=== PATIENT | female | born 2000 | race Caucasian/White ===

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

== ENCOUNTER 2023-03-14 14:55 | Emergency (ER) | payer BC, SELFPAY ==
[2023-03-14 15:03] VITALS: BP 104/67; PULSE 83; RESP 14; TEMP 35.8; O2SAT 98
== END 2023-03-14 17:52 | disposition left against medical advice (07) ==
LOC: ED 17:55
PROVIDERS: PCP Nurse Practitioner Family
DX: H57.10 Ocular pain, unspecified eye (principal)

== ENCOUNTER → 2023-09-27 | Outpatient (CLI) | payer BC, SELFPAY ==
[2023-09-27 15:31] LABS: hCG Titer Quant., Serum < 1 mIU/mL (1-3)
== END | disposition home or self-care (01) ==
LOC: LAB 14:37
PROVIDERS: PCP Nurse Practitioner Family; Referring Provider Nurse Practitioner Women's Health; Visit Provider Nurse Practitioner Women's Health
DX: N91.2 Amenorrhea, unspecified (principal)
CPT/HCPCS: 36415; 84702

== ENCOUNTER → 2024-07-02 | Outpatient (CLI) | payer BC, SELFPAY ==
[2024-07-02 12:27] LABS: Absolute Lymphocyte Count 1.71 X10^3/uL (0.83-4.51); Absolute Neutrophil Count 7.5 X10^3/uL (2.0-7.7); Basophil# 0.03 X10^3/uL; Basophil% 0.3 % (0-1); Eosinophil# 0.03 X10^3/uL; Eosinophils% 0.3 % (0-5); Hematocrit 44.3 % (37-47); Hemoglobin 14.1 g/dL (12.0-15.0); Lymphocyte # 1.71 X10^3/ul (0.83-4.51); Lymphocyte % 17.3 % (19-41); Mean Corp Hgb Conc 31.8 g/dL (32-36); Mean Corpuscular Hgb 28.7 pg (27.0-32.0); Mean Platelet Vol. 8.8 fl (6.2-12.0); Monocyte# 0.55 X10^3/uL; Monocyte% 5.6 % (0-10); NRBC Flagged by Analyzer 0 % (0-5); Neutrophil # 7.52 X10^3/uL (2.7-7.7); Neutrophil % 76.2 % (47-70); Platelet Count 428 K/mm3 (150-450); RBC Distribution Width CV 13.1 % (11.6-14.6); RBC Distribution Width SD 42.9 fl (35.1-43.9); Red Blood Count 4.92 M/mm3 (4.2-5.4); White Blood Count 9.9 K/mm3 (4.4-11.0)
[2024-07-02 13:52] LABS: HIV - WCH Non-Reactive (Nonreactive); Hepatitis B Surface Antigen Non-Reactive (Nonreactive); Hepatitis C Antibody Non-Reactive (Nonreactive); Rubella IgG Reactive (Nonreactive); Syphilis Antibodies Non-reactive
[2024-07-02 14:04] LABS: Hemoglobin A1c 5.2 % (3.8-5.6)
[2024-07-04 20:07] LABS: Chlamydia By Nucleic Acid AMP Negative (Negative); Gonococcus By Nucleic Acid AMP Negative (Negative)
[2024-07-11 09:18] LABS: HPV Reflexed? NOT INDICATED
== END | disposition home or self-care (01) ==
PROVIDERS: PCP Nurse Practitioner Family; Referring Provider Obstetrics & Gynecology; Visit Provider Obstetrics & Gynecology
DX: Z12.4 Encounter for screening for malignant neoplasm of cervix (principal); Z3A.00 Weeks of gestation of pregnancy not specified; O09.90 Supervision of high risk pregnancy, unspecified, unspecified trimester
CPT/HCPCS: 36415; 83036; 85025; 86703; 86762; 86780; 86803; 86850; 86900; 86901; 87086; 87340; 87491; 87591; 88175; G0145

== ENCOUNTER 2024-07-21 18:34 | Emergency (ER) | payer BC, SELFPAY ==
[2024-07-21 18:34] VITALS: BP 127/77; PULSE 121; RESP 20; TEMP 35.6; O2SAT 100; BMI 31.6
--- NOTE | 2024-07-21 18:50 | ED.RN ---
PT STATES SHE HAD A STRESSFUL EVENT WITH FAMILY TODAY AND WHILE COOKING IN THE KITCHEN SHE NOTICED WITH HER APPLE WATCH THAT HER HEART RATE WAS GOING BETWEEN 110-135 WITH SOME SOB AND DIZZINESS. DENIES ANY GI/ S/SX. SOME NAUSEA D/T .
--- NOTE | 2024-07-21 18:52 | EKG12_ITS ---
Test Reason : DYSRHYTHMIA Blood Pressure : */* mmHG Vent. Rate : 113 BPM Atrial Rate : 113 BPM P-R Int : 132 ms QRS Dur : 84 ms QT Int : 326 ms P-R-T Axes : 37 33 39 degrees QTcB Int : 447 ms Sinus tachycardia Otherwise normal ECG Confirmed by STEVE MANRIQUEZ, KORINA ([id number]), loan expeditor SANDIE IRVING ([id number]) on 07/23/2024 6:33:14 AM Referred By: ILAN Confirmed By: KORINA WILSON MD
--- NOTE | 2024-07-21 19:02 | EDS_ITS ---
HPI History of Present Illness Chief Complaint: Palpitations Narrative Narrative: 24-year-old female, G2, P1 sees [place] ACCOUNTANT CONTROLLER's presents with heart palpitations and rapid heart rate that began this afternoon. She relays history that she had a stressful event today, and has been slightly agitated. She noticed her heart rate was in the 140s. When she went to make dinner, after trying to calm herself down, her heart rate remained 110. She denies any vaginal bleeding or any problems with her . No chest pain or shortness of breath. It was suggested by her ACCOUNTANT CONTROLLER that she present to the emergency department for evaluation of her rapid heart rate. Of note, she has chronic nausea associated with this for which she takes promethazine. She denies any recent diarrhea, or vomiting. No fevers or chills. PFSH PFSH Home Medications ?Medication ?Instructions ?Recorded ?Last Taken ?Type albuterol sulfate 90 mcg/actuation 2 puff inhalation Q 6H PRN 08/08/23 Unknown History aerosol inhaler promethazine 12.5 mg tablet 12.5 mg PO Q6H PRN nausea and 06/20/24 Unknown Rx vomiting #60 tabs docosahexaenoic acid 200 mg mg PO 06/26/24 Unknown His tory capsule ( DHA) lactobacillus combination no.4 3 3,000 mmu cells PO QD AY 06/26/24 Unknown History billion cell capsule (Probiotic) magnesium 200 mg tablet 200 mg PO QDAY 06/26/24 Unkn own History vitamin B complex (B-Complex 1 tab PO QDAY 06/26/24 Un known History tablet) Allergy/AdvReac Type Severity Reaction Status Date / Time No Known Allergies Allergy Verified 07/21/24 18:48 Family History Grandmother Breast cancer maternal Grandfather Cancer Skin Aunt Cancer Skin Grandmother Heart disease Myocardial infarction Grandfather Kidney failure Father Pre-diabetes Surgical History S/P nasal surgery S/P wisdom tooth extraction S/P D&C (status post dilation and curettage)
--- NOTE | 2024-07-21 19:02 | EX.ED.DYSGE1 ---
HPI History of Present Illness Chief Complaint: Palpitations Narrative Narrative: 24-year-old female, G2, P1 sees [place] FOOD AND NUTRITION SERVICES SUPERVISOR's presents with heart palpitations and rapid heart rate that began this afternoon. She relays history that she had a stressful event today, and has been slightly agitated. She noticed her heart rate was in the 140s. When she went to make dinner, after trying to calm herself down, her heart rate remained 110. She denies any vaginal bleeding or any problems with her . No chest pain or shortness of breath. It was suggested by her FOOD AND NUTRITION SERVICES SUPERVISOR that she present to the emergency department for evaluation of her rapid heart rate. Of note, she has chronic nausea associated with this for which she takes promethazine. She denies any recent diarrhea, or vomiting. No fevers or chills. PFSH PFSH Home Medications ?Medication ?Instructions ?Recorded ?Last Taken ?Type albuterol sulfate 90 mcg/actuation 2 puff inhalation Q6H PRN 08/08/23 Unknown History aerosol inhaler promethazine 12.5 mg tablet 12.5 mg PO Q6H PRN nausea and 06/20/24 Unknown Rx vomiting #60 tabs docosahexaenoic acid 200 mg mg PO 06/26/24 Unknown History capsule ( DHA) lactobacillus combination no.4 3 3,000 mmu cells PO QDAY 06/26/24 Unknown History billion cell capsule (Probiotic) magnesium 200 mg tablet 200 mg PO QDAY 06/26/24 Unknown History vitamin B complex (B-Complex 1 tab PO QDAY 06/26/24 Unknown History tablet) Allergy/AdvReac Type Severity Reaction Status Date / Time No Known Allergies Allergy Verified 07/21/24 18:48 Family History Grandmother Breast cancer maternal Grandfather Cancer Skin Aunt Cancer Skin Grandmother Heart disease Myocardial infarction Grandfather Kidney failure Father Pre-diabetes Surgical History S/P nasal surgery S/P wisdom tooth extraction S/P D&C (status post dilation and curettage) Social History adopted: No household members: spouse and children number of children: 1 current occupation: [employer] current occupational exposures/hazards: No pets and animals: No history of recent travel: No sexually active: Yes Smoking Status: Never smoker alcohol intake: current alcohol intake frequency: holidays/special occasions only details: Not while substance use type: does not use well-balanced diet: daily or most days caffeine: Yes Type: coffee eating out: rarely or never during the past year weight has: remained stable what type of physical activity do you participate in: walking and weight training frequency: 5-6 times per week duration: 30-45 minutes/day feliciano/druze: Caodaism seatbelt use: always do you feel safe at home: Yes additional social history: : 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 HEENT: No sore throat. No neck pain. No rhinorrhea. Cardiovascular: No chest pain. Positive palpitations and rapid heart rate.. No pedal edema. Respiratory: No cough, no shortness of breath. Abdominal: No abdominal pain. Positive nausea. No vomiting. Genitourinary: No dysuria. No hematuria. No vaginal bleeding. Musculoskeletal: No myalgias. No arthralgias. Neurologic: No headaches. No dizziness. No lightheadedness. Skin: No rash. No change in color. Psychiatric: No depression. Mild stress and anxiety. EXAM Physical Exam Narrative Exam Narrative: Afebrile. Vital signs noted. HEENT: Normocephalic. Atraumatic. PERRL, EOMI. Neck soft and supple. No point tenderness or step off. Cardiovascular: Regular rhythm, positive tachycardia no murmurs, rubs, or gallops appreciated. Respiratory: No tachypnea. Lungs clear to auscultation bilaterally. Gastrointestinal: Abdomen soft, nontender, with normoactive bowel sounds. No rebound or guarding. Neurological: Awake. Alert. Nonfocal, nonlateralizing. Skin: No rash. Normal color. No pallor. Musculoskeletal: No pedal edema. Full range of motion extremities. Const Vital Signs: 07/21/24 18:34 07/21/24 18:48 07/21/24 20:33 Temperature 96.1 F L Temperature Source Temporal Pulse Rate 121 H 104 H Respiratory Rate 20 H 19 H Respiratory Effort Normal Blood Pressure 127/77 H 115/69 Blood Pressure Mean 93 84 Pulse Ox 100 100 Oxygen Delivery Method Room Air MDM MDM MDM Narrative Medical decision making narrative: Differential diagnosis includes but not limited to sinus tachycardia versus dehydration versus anxiety versus intravascular volume depletion. I have low suspicion for pulmonary embolism because her pulse ox is 100% on room air without evidence of hypoxia. She is not having chest pain. EKG was obtained and interpreted by myself independently as sinus tachycardia at 113 bpm without ectopy or acute ST changes. No STEMI. QTc 447. I do not feel that D-dimer is indicated as she has a pulse ox of 100% on room air without evidence of hypoxia. I reviewed her laboratory work and she has normal white count of 10.0 with hemoglobin 13.1, hematocrit 40.1, platelet count 307. Potassium is slightly low at 3.3 which was replaced orally with 40 mill equivalents, BUN low at 6 with creatinine 0.60. Glucose probably elevated at 90. LFTs are grossly unremarkable with normal alk phos, AST, and ALT. Urinalysis does not show evidence of ketones, nor does it show infection so I do not feel that antibiotics are indicated. Additionally, heart rate obtained and is normal at 160 bpm. Upon repeat examination after the majority of her fluid bolus, heart rate now 103 to 104 bpm. I discussed patient with Dr. Donald who agrees with close outpatient follow-up. Was not felt that she needed observation or admission at this time. Should this happen again, she may need cardiology referral or wear Holter monitor. Return instructions to the emergency department were reviewed. Disposition is discharged home in stable condition. History & Record Review Discussion w/independent historian: Patient Lab Data Attestation: I reviewed the patient's lab results. Labs: Laboratory Results - last 24 hr 07/21/24 19:09 WBC 10.0 RBC 4.50 Hgb 13.1 Hct 40.1 MCV 89.1 MCH 29.1 MCHC 32.7 RDW Std Deviation 42.7 RDW Coeff of Arlette 13.0 Plt Count 307 MPV 8.6 Immature Gran % (Auto) 0.400 Neut % (Auto) 89.4 H Lymph % (Auto) 4.8 L Davison % (Auto) 5.2 Eos % (Auto) 0.1 Baso % (Auto) 0.1 Absolute Neuts (auto) 8.9 H Absolute Lymphs (auto) 0.48 L Nucleated RBC % 0 Sodium 138 Potassium 3.3 L Chloride 107 Carbon Dioxide 24.0 Anion Gap 7 BUN 6 L Creatinine 0.60 Estim Creat Clear Calc 163.86 Est GFR (MDRD) Af Amer 159 Est GFR (MDRD) Non-Af 132 BUN/Creatinine Ratio 10.0 Glucose 90 Calcium 8.7 Total Bilirubin 0.10 L AST 31 ALT 38 Alkaline Phosphatase 91 Total Protein 6.9 Albumin 3.1 L Globulin 3.8 Albumin/Globulin Ratio 0.8 L Urine Color Yellow Urine Clarity Sl. Cloudy Urine pH 7.0 Ur Specific [place] 1.005 Urine Protein Negative Urine Glucose (UA) Normal Urine Ketones Negative Urine Occult Blood 10 H Urine Nitrite Negative Urine Bilirubin Negative Urine Urobilinogen Normal Ur Leukocyte Esterase Negative Urine RBC 0-5 SEEN Urine WBC 0 SEEN Ur Squamous Epith Cells 0 SEEN Urine Bacteria 0 SEEN Urine Mucus 0 SEEN Management Discussion w/another healthcare provider: Recreation Therapy Aide (Dr. Donald) Discharge Plan Triage Chief Complaint: Palpitations ED Provider: Aashish Thomas Dx/Rx/DC Orders Clinical Impression: Tachycardia, , Hypokalemia Instructions: ED Hypokalemia, ED Palpitations, ED Established ... Prescriptions: No Action albuterol sulfate 90 mcg/actuation HFA aerosol inhaler 2 puff inhalation Q6H PRN DHA 200 mg capsule PO magnesium 200 mg tablet 200 mg PO QDAY vitamin B complex [B-Complex] Tablet 1 tab PO QDAY Probiotic 3 billion cell capsule 3,000 mmu cells PO QDAY Rx Instructions: administer with a meal promethazine 12.5 mg tablet 12.5 mg PO Q6H PRN (Reason: nausea and vomiting) Qty: 60 2RF Primary Care Provider: Jenniffer Perea NP Referrals: Lashay Fields DO [Med Staff - Active Staff] - 3-5 Days if not improving Jenniffer Perea NP, MUD WORKER-C [Primary Care Provider] - Activity Restrictions/Additional Instructions: Return to the emergency department with sustained high heart rate, new or worsening symptoms. Follow-up with your FOOD AND NUTRITION SERVICES SUPERVISOR. Call the office if you have a high heart rate or palpitations as you may need to be referred to cardiology or wear a Holter monitor. Print Language: Lao Disposition Disposition: Home, Self Care
[2024-07-21] MEDS: 0.9% Normal Saline (1000mL) 1,000 ML 999 ML IV (19:13)
[2024-07-21 19:18] LABS: Bacteria 0 SEEN /hpf (None Seen); Mucous, Urine 0 SEEN /hpf (<or=2+); Squamous Epithelial Cells - UA 0 SEEN /hpf (5-10); White Blood Cells 0 SEEN /hpf (0-5)
[2024-07-21 19:24] LABS: Absolute Lymphocyte Count 0.48 X10^3/uL (0.83-4.51); Absolute Neutrophil Count 8.9 X10^3/uL (2.0-7.7); Basophil# 0.01 X10^3/uL; Basophil% 0.1 % (0-1); Eosinophil# 0.01 X10^3/uL; Eosinophils% 0.1 % (0-5); Hematocrit 40.1 % (37-47); Hemoglobin 13.1 g/dL (12.0-15.0); Lymphocyte # 0.48 X10^3/ul (0.83-4.51); Lymphocyte % 4.8 % (19-41); Mean Corp Hgb Conc 32.7 g/dL (32-36); Mean Corpuscular Hgb 29.1 pg (27.0-32.0); Mean Corpuscular Volume 89.1 fL (81-99); Mean Platelet Vol. 8.6 fl (6.2-12.0); Monocyte# 0.52 X10^3/uL; Monocyte% 5.2 % (0-10); NRBC Flagged by Analyzer 0 % (0-5); Neutrophil # 8.91 X10^3/uL (2.7-7.7); Neutrophil % 89.4 % (47-70); POSITIVE DIFFERENTIAL YES; Platelet Count 307 K/mm3 (150-450); RBC Distribution Width SD 42.7 fl (35.1-43.9)
[2024-07-21 19:25] LABS: Color, Urine Yellow (Yellow); Glucose, Dipstick Normal (Normal); Ketone-Dipstick Negative (Negative); Leukocyte Esterase-Dipstick Negative /ul (Negative); Nitrite-Dipstick Negative (Negative); Occult Blood-Urine 10 /ul (Negative); Protein-Dipstick Negative (Negative); Specific Gravity, Urine 1.005 (1.002-1.030); Urine Bilirubin Dipstick Negative (Negative); Urine Clarity Sl. Cloudy (Clear); Urine Urobilinogen Normal (Normal)
[2024-07-21 19:39] LABS: ALB/GLOB Ratio 0.8 RATIO (0.9-2.4); AST(SGOT) 31 U/L (15-37); Alanine Aminotransfer ALT/SGPT 38 U/L (13-56); Albumin, Serum 3.1 g/dL (3.2-5.0); Alkaline Phosphatase 91 U/L (45-117); Anion Gap 7 (5-15); BUN 6 mg/dL (7-18); Calcium,Total 8.7 mg/dL (8.5-10.1); Chloride 107 mmol/L (98-107); EST Glomerular Filtration Rate 132 mL/min (>60); Est Glom Filt Rate - Afr Amer 159 mL/min (>60); Estimated Creatinine Clearance 163.86 ml/min; Globulin 3.8 g/dL (2.2-4.2); Glucose 90 mg/dL (74-106); Potassium 3.3 mmol/L (3.5-5.1); Protein, Total 6.9 g/dL (6.4-8.2); Sodium Level 138 mmol/L (136-145)
[2024-07-21 19:43] LABS: Red Blood Cells-Urine 0-5 SEEN /hpf (0-5)
[2024-07-21 20:33] VITALS: BP 115/69; PULSE 104; RESP 19; O2SAT 100
[2024-07-21] MEDS: Potassium Chloride Oral Tablet 20 MEQ 40 MEQ PO (21:01)
[2024-07-21 21:03] VITALS: BP 106/67; PULSE 108; RESP 16; TEMP 35.6; O2SAT 100
== END 2024-07-21 21:03 | disposition home or self-care (01) ==
PROVIDERS: Emergency Provider Emergency Medicine; PCP Nurse Practitioner Family; Visit Provider Emergency Medicine
DX: O99.891 Other specified diseases and conditions complicating pregnancy (principal); R00.0 Tachycardia, unspecified; O99.284 Endocrine, nutritional and metabolic diseases complicating childbirth; E87.6 Hypokalemia; Z3A.00 Weeks of gestation of pregnancy not specified
CPT/HCPCS: 80053; 81001; 85025; 93005; 96360; 96361; 99284; A4216

== ENCOUNTER → 2024-10-22 | Outpatient (CLI) | payer BC, SELFPAY ==
[2024-10-22 13:32] LABS: Absolute Lymphocyte Count 1.49 X10^3/uL (0.83-4.51); Basophil# 0.02 X10^3/uL; Basophil% 0.2 % (0-1); Eosinophil# 0.03 X10^3/uL; Eosinophils% 0.3 % (0-5); Hematocrit 40.1 % (37-47); Lymphocyte # 1.49 X10^3/ul (0.83-4.51); Lymphocyte % 13.2 % (19-41); Mean Corp Hgb Conc 32.4 g/dL (32-36); Mean Corpuscular Hgb 30.1 pg (27.0-32.0); Mean Corpuscular Volume 92.8 fL (81-99); Mean Platelet Vol. 9.4 fl (6.2-12.0); Monocyte# 0.58 X10^3/uL; Monocyte% 5.1 % (0-10); NRBC Flagged by Analyzer 0 % (0-5); Neutrophil # 9.03 X10^3/uL (2.7-7.7); Platelet Count 358 K/mm3 (150-450); RBC Distribution Width CV 13.5 % (11.6-14.6); Red Blood Count 4.32 M/mm3 (4.2-5.4); White Blood Count 11.3 K/mm3 (4.4-11.0)
[2024-10-22 14:31] LABS: Glucose Challenge Gest 1H 50g 85 mg/dL (70-140); HIV Nonreactive (Nonreactive); Syphilis Antibodies Nonreactive (Nonreactive)
== END | disposition home or self-care (01) ==
LOC: LAB 12:25
PROVIDERS: PCP Nurse Practitioner Family; Referring Provider Obstetrics & Gynecology; Visit Provider Obstetrics & Gynecology
DX: O09.90 Supervision of high risk pregnancy, unspecified, unspecified trimester (principal); Z13.1 Encounter for screening for diabetes mellitus; Z3A.00 Weeks of gestation of pregnancy not specified
CPT/HCPCS: 36415; 82950; 85025; 86703; 86780

== ENCOUNTER 2024-10-28 23:30 | Outpatient (CLI) | payer BC, SELFPAY ==
[2024-10-28 23:52] VITALS: BMI 34.4
[2024-10-28 23:58] VITALS: BP 118/62; PULSE 95; TEMP 37.1; O2SAT 96
[2024-10-29 00:08] VITALS: RESP 20
[2024-10-29 00:34] LABS: Color, Urine Yellow (Yellow); Glucose, Dipstick Normal (Normal); Ketone-Dipstick Negative (Negative); Leukocyte Esterase-Dipstick Negative /ul (Negative); Nitrite-Dipstick Negative (Negative); Occult Blood-Urine 10 /ul (Negative); Protein-Dipstick 15 mg/dl (Negative); Specific Gravity, Urine 1.015 (1.002-1.030); Urine Bilirubin Dipstick Negative (Negative); Urine Clarity Clear (Clear); Urine Urobilinogen Normal (Normal)
--- NOTE | 2024-10-29 07:36 | OB.TRI.PN ---
Progress Notes Date of Service: 10/28/24 Progress Note: Patient presents for triage evaluation secondary to threatened contracitons FHT: 150 Moderate variability reactive no decelerations category I tracing [place]: isolated Contractions Assessment and plan: 27 weeks threatened contractions cervix closed urine culture sent Reactive NST, reassuring maternal and status patient discharged to home to follow-up as scheduled. See problem list details for additional plan information. Laboratory Studies: Laboratory Tests 10/28/24 Range/Units 00:20 Urine Color Yellow (Yellow) Urine Clarity Clear (Clear) Urine pH 7.0 (5.0 - 8.0) Ur Specific [place] 1.015 (1.002-1.030) Urine Protein 15 H (Negative) mg/dl Urine Glucose (UA) Normal (Normal) mg/dl Urine Ketones Negative (Negative) mg/dl Urine Occult Blood 10 H (Negative) /ul Urine Nitrite Negative (Negative) Urine Bilirubin Negative (Negative) mg/dL Urine Urobilinogen Normal (Normal) mg/dl Ur Leukocyte Esterase Negative (Negative) /ul Charges/Coding Procedures Urinary/Genital 52xxx-59xxx: 05199-96 non-stress test Interp
== END 2024-10-29 01:13 | disposition home or self-care (01) ==
LOC: WPOUT 23:51 → WP 23:51
PROVIDERS: PCP Nurse Practitioner Family; Visit Provider Obstetrics & Gynecology
DX: O47.02 False labor before 37 completed weeks of gestation, second trimester (principal); Z3A.27 27 weeks gestation of pregnancy
CPT/HCPCS: 59050; 81002; 87086; 87088; 99221; G0378

== ENCOUNTER 2024-12-13 13:55 | Outpatient (CLI) | payer BC, SELFPAY ==
[2024-12-13 14:08] VITALS: BP 117/67; PULSE 100
[2024-12-13 14:10] VITALS: PULSE 101; O2SAT 94
== END 2024-12-13 14:50 | disposition home or self-care (01) ==
LOC: WPOUT 13:59 → WP 14:00
PROVIDERS: PCP Nurse Practitioner Family; Referring Provider Obstetrics & Gynecology; Visit Provider Obstetrics & Gynecology
DX: O36.8130 Decreased fetal movements, third trimester, not applicable or unspecified (principal); Z3A.33 33 weeks gestation of pregnancy
CPT/HCPCS: 59025; 59050; 99221; G0378

== ENCOUNTER 2024-12-25 13:50 | Outpatient (CLI) | payer BC, SELFPAY ==
[2024-12-13 14:10] VITALS: RESP 14; TEMP 37.1; O2SAT 100
[2024-12-25 13:53] VITALS: BMI 34.3
[2024-12-25 14:08] VITALS: BP 121/76; PULSE 107; PULSE 113; O2SAT 97
[2024-12-25 14:09] VITALS: RESP 17; TEMP 36.6; O2SAT 97
[2024-12-25 14:45] LABS: ROM Internal Control Test YES-OK TO RESULT pt. (Internal QC); ROM Patient Test Negative (Negative); Record Kit Lot#, ROM+ K3358
--- NOTE | 2024-12-25 19:07 | OB.TRI.HP_ITS ---
HPI - General HPI Narrative SANG SHANE, is a 24 F who presents to L&D at 35 weeks 2 days with possible rupture of membranes Maternal Data Information JANNET Calculator Estimated Delivery Date Method Current WG Current Estimate 01/27/25 LMP (Certain) 35w 4d PFSH PFSH Home Medications ?Medication ?Instructions ?Recorded ?Last Taken ?Type albuterol sulfate 90 mcg/actuation 2 puff inhalation Q 6H PRN 08/08/23 Unknown History aerosol inhaler shortness of breath or wheez ing docosahexaenoic acid 200 mg 1 mg PO QHS 06/26/2412/24 21:00 History capsule ( DHA) lactobacillus combination no.4 3 3,000 mmu cells PO QD AY 06/26/24 12/24/24 19:00 History billion cell capsule (Probiotic) magnesium 200 mg tablet 350 mg PO QDAY 06/26/2412/11 21:00 History acetaminophen 500 mg capsule 1,000 mg PO Q6H PRN pain 10/29/24 10/28/24 21:00 History nystatin 100,000 unit/gram topical 1 applic topical BI D #30 grams 12/17/24 12/25/24 08:00 Rx powder melatonin 3 mg capsule 2 mg PO PRN 12/25/24 5 21:00 History Allergy/AdvReac Type Severity Reaction Status Date / Time No Known Allergies Allergy Verified 12/25/24 14:08 Family History Grandmother Breast cancer maternal Grandfather Cancer Skin Aunt Cancer Skin Grandmother Heart disease Myocardial infarction Grandfather Kidney failure Father Pre-diabetes Surgical History S/P nasal surgery S/P wisdom tooth extraction S/P D&C (status post dilation and curettage) Social History adopted: No household members: spouse and children number of children: 1 current occupation: [employer] current occupational exposures/hazards: No pets and animals: No history of recent travel: No sexually active: Yes Smoking Status: Never smoker alcohol intake: current alcohol intake frequency: holidays/special occasions only details: Not while substance use type: does not use well-balanced diet: daily or most days caffeine: Yes Type: coffee eating out: rarely or never during the past year weight has: remained stable what type of physical activity do you participate in: walking and weight training frequency: 5-6 times per week duration: 30-45 minutes/day feliciano/pentecostal: Uatsdin seatbelt use: always do you feel safe at home: Yes 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 Date Name GA/Weeks Outcome Route Bth Weight Gen Labor Lgth Anes thesi a Del Locatn Provider FOB 12/09/22 Ines 41 live - full term 7lbs 6oz Female 12 hours epidural Ina Rigo Melisaeusebio Roberts Delivery Date: 12/09/22 Last Updated by: Rachel Peña RN Retained placenta - bleed x8wk pp, D&C 8wk pp Visit Details Expected Delivery Route/Plan Labor Preferences- CB/BF classes: no labor support person: Armando labor intervention preferences: [] pain management options preferred: epidural cut cord/dad catch: maybe : yes PP control planned: discussed discussed possible routes of delivery and associated risks: [] special requests: [] Plans Covid status: [] Flu vaccine: [] Tdap vaccine: given Rhogam: na LARC form signed: yes Problem list reviewed and updated with the most current plan of care details and appropriate orders placed. Relevant counseling for the gestational age provided. Continue routine care and follow up unless otherwise noted in visit notes/problem list details OB Flowsheet Initial Weight: 189 lb Date -?-?-?-?-?-?-?-?-?-?-?-?- EGA Weight BP Urine Prot -?-?-?-?-?-?-?-?-?-?-?-?- Glucose FHR FuHt Pres Dilation -?-?-?-?-?-?-?-?-?-?-?-?- Effaced St Visit Note 07/02/24 -?-?-?-?-?-?-?-?-?-?-?-?- 10w 1d 189 lb (+0 oz) 112/76 -?-?-?-?-?-?-?-?-?-?-?-?- 176 -?-?-?-?-?-?-?-?-?-?-?-?- JV- CRL measures 10 weeks 6 days but still not off by more than 7 days. JANNET is per LMP 01/27/25. Desires nipt. was delivered in [facility] last . had retained placenta and D&C several weeks after delivery 07/30/24 -?-?-?-?-?-?-?-?-?-?-?-?- 14w 1d 192 lb 4 oz (+3 lb 4 oz) 124/77 Negative -?-?-?-?-?-?-?-?-?-?-?-?- Negative 168 -?-?-?-?-?-?-?-?-?-?-?-?- KW- no vb/crampi ng. feeling some flutters. anatomy US ordered. 08/27/24 -?-?-?-?-?-?-?-?-?-?-?-?- 18w 1d 201 lb (+12 lb) 115/77 Negative -?-?-?-?-?-?-?-?-?-?-?-?- Negative 176 -?-?-?-?-?-?-?-?-?-?-?-?- JV- pt complains of round ligament pain and pain during sex. was told may have endometriosis. no lof, vaginal bleeding, cramping. 09/24/24 -?-?-?-?-?-?-?-?-?-?-?-?- 22w 1d 202 lb 6 oz (+13 lb 6 oz) 100/63 Negative -?-?-?-?-?-?-?-?-?-?-?-?- Negative 150 -?-?-?-?-?-?-?-?-?-?-?-?- SM- no vb lof go od fm some ijeoma seaman. 10/22/24 -?-?-?-?-?-?-?-?-?-?-?-?- 26w 1d 209 lb 2 oz (+20 lb 2 oz) 98/66 Negative -?-?-?-?-?-?-?-?-?-?-?-?- Negative 143 26 -?-?-?-?-?-?-?-?-?-?-?-?- -No VB. Ezra Porter. Rash comes and goes under breasts, nystatin sent. Larc. 28 wk labs pending 11/06/24 -?-?-?-?-?-?-?-?-?-?-?-?- 28w 2d 214 lb 2 oz (+25 lb 2 oz) 103/51 Negative -?-?-?-?-?-?-?-?-?-?-?-?- Negative 145 29 -?-?-?-?-?-?-?-?-?-?-?-?- KW- no vb/lof. B H ctx becoming more regular- every 3-4 days. increased stress with husbands health concerns and notices a correlation. ezra fm. Tdap today 12/03/24 -?-?-?-?-?-?-?-?-?-?-?-?- 32w 1d 215 lb (+26 lb) 127/86 Negative -?--?-?-?-?-?-?-?-?-?-?-?- Negative 164 32 Cephalic -?-?-?-?-?-?-?-?-?-?-?-?- JV- lots of ques tions about h/o retained placenta. states would appreciate a physician at delivery . 12/17/24 -?-?-?-?-?-?-?-?-?-?-?-?- 34w 1d 214 lb 4 oz (+25 lb 4 oz) 104/80 Negative -?-?-?-?-?-?-?-?-?-?-?-?- Negative 154 34 Cephalic -?-?-?-?-?-?-?-?-?-?-?-?- MH-NO VB. Ezra Perez Occa BH ctx. ROS Constitutional Constitutional: Reports systems reviewed and no addt'l complaints, except as documented Gastrointestinal Gastrointestinal: Denies bloating, constipation, cramping, diarrhea, nausea or vomiting Genitourinary Genitourinary: Reports other Details: Denies vaginal odor, vaginal bleeding, or vaginal discharge ; Denies difficulty urinating or flank pain NST FHR Rate Baby A Baseline: 140 Variability:: Moderate Accelerations:: 15 x 15 Decelerations:: None NST Reactive:: Yes FHR Category:: Category I Assessment & Plan (1) History of retained placenta: COMMENT: very traumatic-found at 8w pp, calcified, took 45min to remove at surgery. (2) Obesity affecting : QUALIFIERS: Trimester: second trimester Obesity type affecting : unspecified obesity Qualified Code(s): O99.212 - Obesity complicating , second trimester COMMENT: BMI 30.2, HgBA1C w/NOB (3) Supervision of high-risk : QUALIFIERS: Trimester: third trimester Qualified Code(s): O09.93 - Supervision of high risk , unspecified, third trimester COMMENT: PRR, , JANNET 01/27/25,girl Brionna PC: Ines, : Armando (4) : QUALIFIERS: Weeks of gestation: 34 weeks Qualified Code(s): Z3A.34 - 34 weeks gestation of COMMENT: NIPT low risk, carrier negative in first . ntd screen declined. (5) Family history of spina bifida: COMMENT: Pt's sister (also has scoliosis), recommended 4 mg daily folic acid (6) History of eating disorder: COMMENT: Doing well with eating during , please be mindful of weight checks (7) Asthma: QUALIFIERS: Asthma severity: unspecified severity Asthma persistence: unspecified Asthma complication type: unspecified Qualified Code(s): J45.909 - Unspecified asthma, uncomplicated COMMENT: Albuterol PRN (8) Migraine with aura: QUALIFIERS: Status migrainosus presence: without status migrainosus Intractability: not intractable Qualified Code(s): G43.109 - Migraine with aura, not intractable, without status migrainosus COMMENT: avoid estrogen PLAN: Plan rom plus is negative nst reactive ok to dc to home Charges/Coding Multi Select Codes Urinary/Genital Urinary/Genital CPT Codes: 37312-13 non-stress test Interp
== END 2024-12-25 15:15 | disposition home or self-care (01) ==
LOC: WPOUT 13:52 → WP 13:53
PROVIDERS: PCP Nurse Practitioner Family; Referring Provider Obstetrics & Gynecology; Visit Provider Obstetrics & Gynecology
DX: O99.213 Obesity complicating pregnancy, third trimester (principal); Z3A.35 35 weeks gestation of pregnancy; O99.353 Diseases of the nervous system complicating pregnancy, third trimester; G43.109 Migraine with aura, not intractable, without status migrainosus; Z82.79 Family history of other congenital malformations, deformations and chromosomal abnormalities; O99.513 Diseases of the respiratory system complicating pregnancy, third trimester; J45.909 Unspecified asthma, uncomplicated
CPT/HCPCS: 59025; 59050; 84112; 99221; G0378

== ENCOUNTER 2024-12-31 10:25 | Outpatient (CLI) | payer BC, SELFPAY ==
--- OUTSIDE RECORDS SUMMARY | 2024-12-31 20:06 | XMS RPT_ITS | CCD ---
Author Organization [facility] Care Team Providers Care Farm Implement Engine Mechanic Name Role Phone Unavailable Primary Care Provider Unavailabl e ELIAZAR FISHING FLOATS ASSEMBLER-JENNIFFER MAXWELL Primary Care Physician ELIAZAR NO, JENNIFFER Primary Care Physician Jenniffer Peera Primary Care Provider RADHA SCOTT Attending Unavailable JENNIFFER PEREA Referring Unavailable RADHA SCOTT Admitting Unavailable RADHA SCOTT Attending Unavailable JENNIFFER PEREA Primary Care Unavailable Eliazar CONCESSION ATTENDANT, CONCESSION ATTENDANT-C Jenniffer Primary Care Provider [phone] Eliazar CONCESSION ATTENDANT, CONCESSION ATTENDANT-C Jenniffer Referring Provider Rasta CONCESSION ATTENDANT, CONCESSION ATTENDANT-C Malathi Attending Provider [phone] Kevan CONCESSION ATTENDANT, CONCESSION ATTENDANT-C Kristi Attending Provider [phone] ELIAZAR FISHING FLOATS ASSEMBLER-ALISSA, [facility] Unavail able JAXSON SANTILLAN Attending Unav ailable ELIAZAR FISHING FLOATS ASSEMBLER-ALISSA, [facility] Unavail able MELISA ULLOA MD Attending Unavailable LORSON FISHING FLOATS ASSEMBLER-SEPARATING MACHINE OPERATOR, [place] Primary Care Unavail able LORSON FISHING FLOATS ASSEMBLER-SEPARATING MACHINE OPERATOR, JENNIFFER Attending Unavail able LORSON FISHING FLOATS ASSEMBLER-SEPARATING MACHINE OPERATOR, [place] Primary Care Unavail able LORSON FISHING FLOATS ASSEMBLER-SEPARATING MACHINE OPERATOR, JENNIFFER Attending Unavail able LORSON FISHING FLOATS ASSEMBLER-SEPARATING MACHINE OPERATOR, JENNIFFER Attending Unavail able LORSON FISHING FLOATS ASSEMBLER-SEPARATING MACHINE OPERATOR, [facility] Care Unavail able DEVAN VILLARREAL Attending Unavailable GONZALEZ DUNNE Referring Unavailable Eliazar CONCESSION ATTENDANT-C, [place] Primary Care Provider [phone] Rachel Peña RN Attending Provider Unavailabl e Eliazar CONCESSION ATTENDANT-C, Jenniffer Referring Provider Dr. Lashay Fields DO Attending Provider Dr. Lashay Fields DO Referring Provider Martha MANRIQUEZ, Aashish Attending Provider Martha MANRIQUEZ, Aashish Emergency Provider Gonzalez Dunne CNM Attending Provider [phone] Scot MANRIQUEZ, Dr. Cortes Attending Provider [phone] Scot MANRIQUEZ, Dr. Cortes Referring Provider Fillmore CONCESSION ATTENDANT-C, Malathi Attending Provider [phone] Lorson CONCESSION ATTENDANT-C, [place] Primary Care Provider [phone] Lorson CONCESSION ATTENDANT-C, [place] Primary Care Provider [phone] Lorson CONCESSION ATTENDANT-C, [place] Referring Provider [phone] Zan Tellez DO, Dr. Metz Attending Provider Scot MANRIQUEZ, Dr. Cortes Other Provider [phone] Lorson CONCESSION ATTENDANT-C, [place] Primary Care Provider [phone] Lorson CONCESSION ATTENDANT-C, [place] Primary Care Provider [phone] Lorson CONCESSION ATTENDANT-C, [place] Referring Provider [phone] Gonzalez Dunne CNM Attending Provider [phone] Dr. Lashay Fields DO Referring Provider Lashay Fields Attending Unavailabl e Lorson CONCESSION ATTENDANT, [facility] Unavailable Lorson CONCESSION ATTENDANT, [place] Referring Unavailable Lashay Fields Referring Unavailabl e Jonie Lashay Tellez Attending Unavailabl e Lorson CONCESSION ATTENDANT, [facility] Unavailable Lorson CONCESSION ATTENDANT, [facility] Care Unavailable Lorson CONCESSION ATTENDANT, [place] Referring Unavailable Gonzalez Dunne Attending Unavailable Sophia Ellison Attending Unavailable Sophia Ellison Referring Unavailable Lorson CONCESSION ATTENDANT, [facility] Unavailable Lashay Fields Attending Unavailabl e Lorson CONCESSION ATTENDANT, [facility] Care Unavailable Lorson CONCESSION ATTENDANT, [place] Referring Unavailable Lashay Fields Referring Unavailabl e Vande Lashay Tellez Attending Unavailabl e Lorson CONCESSION ATTENDANT, [facility] Unavailable Sophia Ellison Attending Unavailable Sophia Ellison Referring Unavailable Lorson CONCESSION ATTENDANT, [facility] Care Unavailable Lashay Fields Attending Unavailabl e Lorson CONCESSION ATTENDANT, [facility] Care Unavailable Lorson CONCESSION ATTENDANT, [place] Referring Unavailable Lorson CONCESSION ATTENDANT, [facility] Care Unavailable Aashish Thomas Attending Unavailable WichoanthonySophia Referring Unavailable Sophia Ellison Attending Unavailable Lorson CONCESSION ATTENDANT, [facility] Care Unavailable Lorson CONCESSION ATTENDANT, [place] Primary Care Unavailable Lorson CONCESSION ATTENDANT, [place] Referring Unavailable Sophia Ellison Attending Unavailable [place] CONCESSION ATTENDANT, Malathi Attending Unavailable Lorson CONCESSION ATTENDANT, [place] Referring Unavailable Lorson CONCESSION ATTENDANT, [place] Primary Care Unavailable Lorson CONCESSION ATTENDANT, [place] Primary Care Unavailable Lorson CONCESSION ATTENDANT, [place] Referring Unavailable Gonzalez Dunne Attending Unavailable Lorson CONCESSION ATTENDANT, [place] Referring Unavailable Lorson CONCESSION ATTENDANT, [place] Primary Care Unavailable [place] CONCESSION ATTENDANT, Malathi Attending Unavailable Lorson CONCESSION ATTENDANT, [place] Primary Care Unavailable Lorson CONCESSION ATTENDANT, [place] Referring Unavailable [place] CONCESSION ATTENDANT, Malathi Attending Unavailable Sophia Ellison Consulting Unavailable Sophia Ellison Referring Unavailable Sophia Ellison Attending Unavailable Lorson CONCESSION ATTENDANT, [facility] Care Unavailable Lashay Fields Consulting Unavailabl e Vande Velde, Lashay Referring Unavailabl e Vande Velhanh, Lashay Attending Unavailabl e Lorson CONCESSION ATTENDANT, [facility] Unavailable Sophia Ellison Attending Unavailable Sophia Ellison Consulting Unavailable Lorson CONCESSION ATTENDANT, [facility] Unavailable Rachel Peña Attending Unavailable Lorson CONCESSION ATTENDANT, [facility] Unavailable Lorson CONCESSION ATTENDANT, [facility] Care Unavailable Lorson CONCESSION ATTENDANT, [place] Referring Unavailable Gonzalez Dunne Attending Unavailable Rasta CONCESSION ATTENDANT, Malathi Attending Unavailable Lorson CONCESSION ATTENDANT, [facility] Unavailable Lorson CONCESSION ATTENDANT, [place] Referring Unavailable Lorson CONCESSION ATTENDANT-C, [place] Primary Care Provider [phone] Lorson CONCESSION ATTENDANT-C, [place] Referring Provider [phone] Lashay Fields DO Attending Provider Dr. Lashay Fields DO Other Provider [phone] Gonzalez Dunne CNM Referring Provider Medications Current Medications Medication Drug Class(es) Dates Sig (Normalized) Sig (Original) acetaminophen 500 mg oral capsule (20 sources) Start: 10-29-2024 take 2 capsules by mouth every six hours as needed for pain Acetaminophen 500 mg capsule Active 1000 mg PO EVERY 6 HOURS as needed for pain October 29, 2024 12:00am Start: 09-29-2023 End: 09-29-2023 acetaminophen (Tylenol) tabl et 1,000 mg Start: 12-10-2022 End: 01-07-2023 Tylenol Extra Strength 500 m g oral tablet Dose : 500 mg = 1 tab(s), Oral, q4h, X 14 day(s), # 30 tab(s), 1 Refill(s), 01/07/23 9:45:00 EDT, Pharmacy: [facility] #[id number], 167.6, cm, 12/08/22 22:42:00 EDT, Height Start Date: 12/10/22 Stop Date: 01/07/23 Status: Ordered Start: 09-02-2020 Tylenol Dose : 325 mg =, Oral, PRN as needed for pain, 0 Refill(s) Start Date: 09/02/20 Status: Ordered acetaminophen 325 mg / oxyCODONE hydrochloride 5 mg oral tablet (1 source) Opioid Agonist Start: 02-04-2023 End: 02-11-2023 take 1 tablet by mouth every four hours as needed for pain Percocet 5 mg-325 mg oral tablet Dose = 1 tab(s), Oral, q4h, PRN for pain, X 7 day(s), # 12 tab(s), 0 Refill(s), Pharmacy: [facility] #[id number], Postoperative pain, 167.6, cm, 02/04/23 6:23:00 EDT, Height, 75, kg, 02/04/23 6:23:00 EDT, Dosing Weight Start Date: 02/04/23 Stop Date: 02/11/23 Status: Ordered [id number] 200 actuat albuterol 0.09 mg/actuat metered dose inhaler (20 sources) beta2-Adrenerg ic Agonist Start: 08-08-2023 Albuterol Sulfate 90 mcg/actuation HFA aerosol inhaler Active 2 NMA INHALATION EVERY 6 HOURS as needed for shortness of breath or wheezing August 08, 2023 1:00am Start: 02-26-2024 take 1 puff(s) by in halation every six hours Albuterol Sulfate Active 2 PUFF INHALATION EVERY 6 HOURS August 08, 2023 1:00am Start: 09-02-2022 take 2 puff(s) by in halation every four hours as needed for wheezing Ventolin HFA MDI (90 mcg/inh) inhalation aerosol 2 puff(s), Inhalation, q4h, PRN as needed for wheezing, # 6.7 gram(s), 0 Refill(s), Pharmacy: [facility] #[id number], 167, cm, 08/16/22 13:53:00 EST, Height, kg, 06/08/22 10:52:00 EST, Dosing Weight Start Date: 09/02/22 Status: Ordered Start: 09-19-2021 take 2 puff(s) by in halation every four hours as needed for wheezing Ventolin HFA MDI (90 mcg/inh) inhalation aerosol 2 puff(s), Inhalation, q4h, PRN as needed for wheezing, # 1 EA, 0 Refill(s), Pharmacy: [email or web address] 167.6, cm, 09/02/20 14:42:00 EDT, Height, kg, 09/02/20 14:42:00 EDT, Dosing Weight Start Date: 09/19/21 Status: Ordered Start: 09-02-2020 take 2 puff(s) by in halation every four hours as needed for wheezing Ventolin HFA MDI (90 mcg/inh) inhalation aerosol 2 puff(s), Inhalation, q4h, PRN as needed for wheezing, # 1 EA, 0 Refill(s), Pharmacy: [email or web address] 167.6, cm, 09/02/20 14:42:00 EDT, Height, kg, 09/02/20 14:42:00 EDT, Dosing Weight Start Date: 09/02/20 Status: Ordered ALBUTEROL SULFAT E HFA IN Inhale 2 puffs as needed. 0 Active albuterol sulfate HFA 108 (90 Base) MCG/ACT inhaler (1 source) take 2 puff(s) by inhalation every six hours as needed for wheezing albuterol sulfate HFA 108 (90 Base) MCG/ACT inhaler Inhale 2 puffs into the lungs every 6 hours as needed for Wheezing 0 Active benzocaine 200 mg/ml topical spray (1 source) Standardized Chemical Allergen Start: End: apply 1 dose topically four times daily Americaine 20% topical spray Dose = 1 rashel, Topical, QID, X 14 day(s), # 1 EA, 0 Refill(s), [facility]acy: [facility] #[id number], 167.6, cm, 12/08/22 22:42:00 EDT, Height Start Date: 12/10/22 Stop Date: 12/24/22 Status: Ordered DME MISCellaneous (8 sources) Start: DME MISCellaneous See Instructions, Spacer chamber, Dx: J45.909, # 1 EA, 0 Refill(s), [facility]: [facility] #[id number], 167, cm, 09/25/22 8:01:00 EDT, Height, 79.5 Start Date: 09/25/22 Status: Ordered docosahexaenoic acid 200 mg oral capsule (10 sources) Start: take 1 mg by mouth at bedtime Docosahexaenoic Acid ( Dha) 200 mg capsule Active 1 mg PO AT BEDTIME June 26, 2024 1:00am evening primrose oil 1000 mg oral capsule (3 sources) Start: Evening [place] Oil 1000 mg oral capsule Dose : 1,000 mg = 1 cap(s), Oral, Daily, 0 Refill(s) Start Date: 12/07/22 Status: Ordered famotidine 20 mg oral tablet (6 sources) Histamine-2 Receptor Antagonist Start: Pepcid 20 mg oral tablet Dose : 20 mg = 1 tab(s), Oral, BID, # 60 tab(s), 0 Refill(s), Pharmacy: [facility] #[id number], 31 weeks gestation of Gastric reflux, 167, cm, 10/11/22 11:07:00 EDT, Height Start Date: 10/11/22 Status: Ordered Start: 07-11-2022 Pepcid 20 mg o ral tablet Dose : 20 mg = 1 tab(s), Oral, qDay, # 30 tab(s), 0 Refill(s), Abdominal discomfort Headache Start Date: 07/11/22 Status: Ordered ferrous sulfate 325 mg oral tablet (8 sources) Start: 12-10-2022 IRON (ferrous sulfate 325 mg) 65 mg oral tablet Dose : 325 mg = 1 tab(s), Oral, qDay, Take with food., # 30 tab(s), 3 Refill(s), [facility]: [facility] #[id number], 167.6, cm, 12/08/22 22:42:00 EDT, Height Start Date: 12/10/22 Status: Ordered Start: 09-27-2022 ferrous sulfat e 325 mg (65 mg elemental iron) oral delayed release tablet Dose : 325 mg = 1 tab(s), Oral, qDay, # 30 tab(s), 6 Refill(s), [facility]: [facility] #[id number], 167, cm, 09/27/22 13:18:00 EDT, Height Start Date: 09/27/22 Status: Ordered ibuprofen 800 mg oral tablet (6 sources) Nonsteroidal Anti-inflammatory Drug Start: 02-04-2023 End: 02-18-2023 ibuprofen 800 mg oral tablet Dose : 800 mg = 1 tab(s), Oral, q8h, X 14 day(s), # 42 tab(s), 0 Refill(s), 02/18/23 6:33:00 AM EDT, [facility]acy: [facility] #[id number], 167.6, cm, 02/04/23 6:23:00 EDT, Height, kg, 02/04/23 6:23:00 EDT, Dosing Weight Start Date: 02/04/23 Stop Date: 02/18/23 Status: Ordered Start: 12-10-2022 End: 12-24-2022 ibuprofen 800 mg oral tablet Dose : 800 mg = 1 tab(s), Oral, q8h, X 14 day(s), # 42 tab(s), 0 Refill(s), 12/24/22 9:45:00 EDT, [facility]acy: [facility] #[id number], 167.6, cm, 12/08/22 22:42:00 EDT, Height Start Date: 12/10/22 Stop Date: 12/24/22 Status: Ordered Start: 08-01-2020 ibuprofen PRN as needed for pain, 0 Refill(s) Start Date: 08/01/20 Status: Ordered Start: 07-21-2019 End: 07-21-2019 ibuprofen (ADVIL;MOTRIN) tab let 400 mg Lactobacillus Combination No.4 (Probiotic) 3 billion cell capsule (10 sources) Start: 06-26-2024 take 3 capsules by mouth once daily Lactobacillus Combination No.4 (Probiotic) 3 billion cell capsule Active 3000 NMA PO daily June 26, 2024 1:00am administer with a meal Magnesium (10 sources) Start: 06-26-2024 Magnesium 200 mg tablet Active 350 mg PO daily June 26, 2024 1:00am Start: 06-26-2024 take 1 tablet by kyle th once daily Magnesium 200 mg tablet Active 200 mg PO daily June 26, 2024 1:00am melatonin 3 mg oral capsule (3 sources) Start: 12-25-2024 Melatonin 3 mg capsule Active 2 mg PO NEEDED December 25, 2024 12:00am Midol Extended Relief 220 mg oral tablet (2 sources) Start: 09-02-2020 take 1 capsule by mouth every eight hours as needed for pain Midol Extended Relief 220 mg oral tablet 1 cap(s), Oral, q8h, PRN as needed for pain, # 40 cap(s), 0 Refill(s) Start Date: 09/02/20 Status: Ordered naproxen sodium 220 mg oral tablet (1 source) Nonsteroidal Anti-inflammatory Drug Start: 09-02-2020 take 1 capsule by mouth every eight hours as needed for pain Midol Extended Relief 220 mg oral tablet 1 cap(s), Oral, q8h, PRN as needed for pain, # 40 cap(s), 0 Refill(s) Start Date: 09/02/20 Status: Ordered nystatin 100 unt/mg topical powder (4 sources) Polyene Antifungal Start: 12-17-2024 Nystatin 100,000 unit/gram powder Active 1 NMA TOPICAL TWICE A DAY 30 December 17, 2024 9:51am Multivitamin + DHA (3 sources) Start: 12-28-2022 Multivitamin + DHA Oral, 0 Refill(s) Start Date: 12/28/22 Status: Ordered Multivitamins with Vitamin B Complex, Vitamin C, Minerals and L-Methylfolate oral capsule (9 sources) Start: 04-21-2022 take 1 capsule by mouth once daily Multivitamins with Vitamin B Complex, Vitamin C, Minerals and L-Methylfolate oral capsule Dose = 1 cap(s), Oral, Daily, 0 Refill(s) Start Date: 04/21/22 Status: Ordered RA VITAMIN B-6 50 MG TABLET (5 sources) Start: 05-19-2022 take 1 tablet by mouth twice daily RA VITAMIN B-6 50 MG TABLET take 1 tablet by mouth twice a day Start Date: 05/19/22 Status: Ordered tranexamic acid 650 mg oral tablet (6 sources) Antifibrinolytic Agent Start: 08-01-2020 tranexamic acid 650 mg oral tablet Dose : 1,300 mg = 2 tab(s), Oral, TID, for a maximum of 5 days during monthly menstruation, # 48 tab(s), 3 Refill(s), [facility]: [facility] [facility], Menorrhagia, 167.6, cm, 09/02/20 14:42:00 EDT, Height, kg, 09/02/20 14:42:00 EDT, Dosing Weight Start Date: 07/15/21 Status: Ordered Vitamin B6 50 mg oral tablet (5 sources) Start: 11-02-2022 take 1 tablet by mouth twice daily Vitamin B6 50 mg oral tablet 1 tab(s), Oral, BID, # 28 tab(s), 0 Refill(s), Pharmacy: [facility] #[id number], 167, cm, 10/25/22 10:43:00 EDT, Height, kg, 09/29/22 12:53:00 EDT, Dosing Weight Start Date: 11/02/22 Status: Ordered Completed/Discontinued Medications Medication Drug Class(es) Dates Sig (Normalized) Sig (Original) calcium chloride 0.0014 meq/ml / potassium chloride 0.004 meq/ml / sodium chloride 0.103 meq/ml / sodium lactate 0.028 meq/ml injectable solution (2 sources) Start: 09-29-2023 End: 09-29-2023 lactated Ringer's (LR) infusion 1 ml diphenhydrAMINE hydrochloride 50 mg/ml cartridge (2 sources) Histamine-1 Receptor Antagonist Start: 09-29-2023 End: 09-29-2023 diphenhydrAMINE (BENADryl) injection 12.5 mg 1 ml HYDROmorphone hydrochloride 1 mg/ml cartridge (4 sources) Opioid Agonist Start: 09-29-2023 End: 09-29-2023 HYDROmorphone (Dilaudid) injection 0.5 mg Start: 09-29-2023 End: 09-29-2023 HYDROmorphone (Dilaudid) inj ection 0.25 mg labetalol (Normodyne,Trandate) injection 5 mg (2 sources) Start: 09-29-2023 End: 09-29-2023 labetalol (Normodyne,Trandate) injection 5 mg 1 ml LORazepam 2 mg/ml injection (2 sources) Benzodiazepine Start: 09-29-2023 End: 09-29-2023 LORazepam (Ativan) injection 0.5 mg 1 ml meperidine hydrochloride 25 mg/ml cartridge (2 sources) Opioid Agonist Start: 09-29-2023 End: 09-29-2023 meperidine (Demerol) injection 12.5 mg Nystatin 100,000 unit/gram powder (10 sources) Start: 10-22-2024 End: 12-17-2024 Nystatin 100,000 unit/gram powder Discontinued 1 NMA TOPICAL TWICE A DAY 12 07October 22, 2024 12:00am December 17, 2024 9:51am Start: 10-22-2024 Nystatin 100,0 00 unit/gram powder Active 1 NMA TOPICAL TWICE A DAY 12 07October 22, 2024 12:00am Start: 10-22-2024 Nystatin 100,0 00 unit/gram powder Active 1 NMA TOPICAL TWICE A DAY October 22, 2024 12:00am 2 ml ondansetron 2 mg/ml injection (2 sources) Serotonin-3 Receptor Antagonist Start: 09-29-2023 End: 09-29-2023 ondansetron (Zofran) injection 4 mg oxyCODONE (2 sources) Opioid Agonist Start: 09-29-2023 End: 09-29-2023 oxyCODONE (Roxicodone) immediate release tablet 5 mg promethazine hydrochloride 12.5 mg oral tablet (20 sources) Phenothiazine Start: 06-20-2024 End: 10-29-2024 take 1 tablet by mouth every six hours as needed for nausea and vomiting Promethazine 12.5 mg tablet Discontinued 12.5 mg PO EVERY 6 HOURS as needed for nausea and vomiting 60 2 July 25, 2024 1:42pm October 29, 2024 12:06am 50 ml sodium chloride 9 mg/ml injection (8 sources) Start: 09-29-2023 End: 09-29-2023 sodium chloride 0.9 % bolus 500 mL Start: 09-29-2023 End: 09-29-2023 sodium chloride 0.9 % infusi on Start: 09-29-2023 End: 09-29-2023 sodium chloride 0.9% (NS) fl ush 5-40 mL Vitamin B Complex (B-Complex ) tablet (10 sources) Start: 06-26-2024 End: 10-29-2024 Vitamin B Complex (B-Complex ) tablet Discontinued 1 {tbl} PO daily June 26, 2024 1:00am October 29, 2024 12:06am Start: 06-26-2024 Vitamin B Comp zohaib (B-Complex) tablet Active 1 {tbl} PO daily June 26, 2024 1:00am Problems Active Problems Problem Classification Problem Date Documented Date Episodic/Chronic Abdominal pain (1 source) Abdominal pain; Translations: [Unspecified abdominal pain] Onset: 07-11-2022 Episodic Asthma (20 sources) Asthma; Translations: [Unspecified asthma, uncomplicated] Onset: 12-27-2024 09-01-2020 Chronic Comment on above: Albuterol PRN Cardiac dysrhythmias (11 sources) Tachycardia; Translations: [Tachycardia, unspecified] Onset: 08-07-2024 07-29-2024 Episodic Conditions associated with dizziness or vertigo (1 source) Dizziness and giddiness; Translations: [Dizziness and giddiness] Episodic Early or threatened labor (1 source) False labor before 37 completed weeks of gestation, second trimester; Translations: [False labor before 37 completed weeks of gestation, second trimester] Onset: 11-19-2024 Episodic Endometriosis (15 sources) Endometriosis of pelvis 12-04-2021 Chronic Esophageal disorders (9 sources) Gastroesophageal reflux disease without esophagitis; Translations: [Gastro-esophageal reflux disease without esophagitis] Onset: 07-11-2022 Chronic Fluid and electrolyte disorders (10 sources) Hypokalemia; Translations: [Hypokalemia] 07-29-2024 Episodic Headache; including migraine (20 sources) Migraine; Translations: [Migraine with aura] Onset: 12-27-2024 09-01-2020 Chronic Comment on above: avoid estrogen Headache; including migraine (1 source) Headache; Translations: [Headache, unspecified] Onset: 07-11-2022 Episodic Immunizations and screening for infectious disease (2 sources) Screening status; Translations: [Encounter for screening for infections with a predominantly sexual mode of transmission] Onset: 11-06-2024 Episodic Menstrual disorders (1 source) Amenorrhea, unspecified; Translations: [Amenorrhea, unspecified] Onset: 05-21-2024 Chronic Nonmalignant breast conditions (1 source) Mastodynia; Translations: [Mastodynia] 08-25-2023 Episodic Other acquired deformities (16 sources) Scoliosis deformity of spine 09-01-2020 Chronic Other complications of (20 sources) Maternal obesity complicating , childbirth and the puerperium, antepartum; Translations: [Obesity complicating , unspecified trimester] 10-22-2024 Chronic Comment on above: BMI 30.2, HgBA1C w/N OB Other complications of (2 sources) Obesity complicating , second trimester; Translations: [Obesity complicating , second trimester] Onset: 12-27-2024 Chronic Other complications of (1 source) Obesity complicating , unspecified trimester; Translations: [Obesity complicating , unspecified trimester] Onset: 07-30-2024 Chronic Other complications of (20 sources) High risk ; Translations: [Supervision of high risk , unspecified, unspecified trimester] 10-22-2024 Episodic Comment on above: PRR, , JANNET 01/27,girl Br[facility]: Ines, : Fabrizio Other complications of (2 sources) Supervision of high risk , unspecified, third trimester; Translations: [Supervision of high risk , unspecified, third trimester] Onset: 12-27-2024 Episodic Other complications of (1 source) Decreased movements, third trimester, not applicable or unspecified; Translations: [Decreased movements, third trimester, not applicable or unspecified] Onset: 12-20-2024 Episodic Other complications of (1 source) Supervision of high risk , unspecified, unspecified trimester; Translations: [Supervision of high risk , unspecified, unspecified trimester] Onset: 10-24-2024 Episodic Other female genital disorders (9 sources) Pain in female genitalia on intercourse 12-04-2021 Chronic Other nervous system disorders (1 source) Postoperative pain ; Translations: [Other acute postprocedural pain] Onset: 02-04-2023 Episodic Other and delivery including normal (20 sources) ; Translations: [Encounter for care and examination of lactating mother] Onset: 03-02-2022 05-19-2022 Episodic Comment on above: 2wk PP visit. NIPT low risk, kelli er negative in first . ntd screen declined. Other skin disorders (8 sources) Swollen ankle region 09-29-2022 Episodic Other upper respiratory disease (2 sources) Epistaxis; Translations: [Epistaxis] Onset: 09-29-2023 Episodic Other upper respiratory infections (11 sources) Viral upper respiratory tract infection 06-08-2022 Episodic Residual codes; unclassified (1 source) Gestation period, 23 weeks; Translations: [23 weeks gestation of ] Episodic Residual codes; unclassified (20 sources) Family history of Spina bifida; Translations: [Family history of other congenital malformations, deformations and chromosomal abnormalities] 09-24-2024 Episodic Comment on above: Pt's sister (also bauer s scoliosis), recommended 4 mg daily folic acid Residual codes; unclassified (20 sources) History of retained placenta; Translations: [Personal history of other complications of , childbirth and the puerperium] 11-19-2024 Episodic Comment on above: very traumatic-found at 8w pp, calcified, took 45min to remove at surgery. Residual codes; unclassified (2 sources) Personal history of other complications of , childbirth and the puerperium; Translations: [Personal history of other complications of , childbirth and the puerperium] Onset: 12-27-2024 Episodic Residual codes; unclassified (2 sources) 34 weeks gestation of ; Translations: [34 weeks gestation of ] Onset: 12-27-2024 Episodic Residual codes; unclassified (2 sources) Family history of other congenital malformations, deformations and chromosomal abnormalities; Translations: [Family history of other congenital malformations, deformations and chromosomal abnormalities] Onset: 12-27-2024 Episodic Residual codes; unclassified (1 source) 32 weeks gestation of ; Translations: [32 weeks gestation of ] Onset: 12-03-2024 Episodic Screening and history of mental health and substance abuse codes (20 sources) History of eating disorder; Translations: [Personal history of other mental and behavioral disorders] Onset: 12-27-2024 06-26-2024 Episodic Comment on above: Doing well with wil garcia during , please be mindful of weight checks Sprains and strains (1 source) Low back strain Episodic Unclassified (8 sources) Excessive weight gain during 10-11-2022 Viral infection (5 sources) Disease caused by 2019-nCoV 09-02-2020 Past or Other Problems Problem Classification Problem Date Documented Da te Episodic/Chronic Other female genital disorders (1 source) Vulvar cyst; Translations: [Vulvar cyst] Onset: 05-21-2024 Episodic Other screening for suspected conditions (not mental disorders or infectious disease) (4 sources) Blood disorder monitoring status; Translations: [Encounter for screening for diseases of the blood and blood-forming organs and certain disorders involving the immune mechanism] Onset: 07-26-2024 Episodic Residual codes; unclassified (1 source) 14 weeks gestation of ; Translations: [14 weeks gestation of ] Onset: 07-30-2024 Episodic Results Test Name Value Interpretation Reference Range Facility (ROM) Rupture Of Membraneson 12-25-2024 ROM Negative Normal Negative [facility] Comment on above: Result Comment: Amni otic fluid not present indicates No Rupture of Membranes at time of specimen collection. Performed By: #### L 205.1000 ####[facility] [id number] [facility] [place], [address] OB Triage Physician Noteon 0 12-25-2024 OB Triage Physician Note [facility] Medical Records Department [address] [place] [address] OB Triage Physician Note 12/25/24 1907 MR#: [id number] Acct: [id number] Name: CYDNEY BROWN Rep #: [id number] : 2000 24 From: Lashay Fields DO PCP: Jenniffer Lorson, CONCESSION ATTENDANT-C Status:DEP CLI Y Location: [facility] HPI - General HPI Narrative CYDNEY BROWN, is a 24 F who presents to D at 35 weeks 2 days with possible rupture of membranes Maternal Data Information JANNET Calculator Estimated Delivery Date Method Current WG Current Estimate 01/27/25 LMP (Certain) 35w 4d PFSH PFSH Home Medications ???Medication ???Instructions ???Recorded ???Last Taken ???Type albuterol sulfate 90 mcg/actuation 2 puff inhalation Q6H PRN Unknown History aerosol inhaler shortness of breath or wheezing docosahexaenoic acid 200 mg 1 mg PO QHS 06/26/24 12/24/24 21:0 0 History capsule ( DHA) lactobacillus combination no.4 3 3,000 mmu cells PO QDAY 06/26/24 0 12/24/24 19:00 History billion cell capsule (Probiotic) magnesium 200 mg tablet 350 mg PO QDAY 06/26/24 12/24/24 2 1:00 History acetaminophen 500 mg capsule 1,000 mg PO Q6H PRN pain 10/29/24 10/28/24 21:00 History nystatin 100,000 unit/gram topical 1 applic topical BID #30 grams 0 12/17/24 12/25/24 08:00 Rx powder melatonin 3 mg capsule 2 mg PO PRN 12/25/24 12/24/24 21:0 0 History Allergy/AdvReac Type Severity Reaction Status Date / Time No Known Allergies Allergy Verified 12/25/24 14:08 Family History Grandmother Breast cancer maternal Grandfather Cancer Skin Aunt Cancer Skin Grandmother Heart disease Myocardial infarction Grandfather Kidney failure Father Pre-diabetes Surgical History S/P nasal surgery S/P wisdom tooth extraction S/P D C (status post dilation and curettage) Social History adopted: No household members: spouse and children number of children: 1 current occupation: [employer] current occupational exposures/hazards: No pets and animals: No history of recent travel: No sexually active: Yes Smoking Status: Never smoker alcohol intake: current alcohol intake frequency: holidays/special occasions only details: Not while substance use type: does not use well-balanced diet: daily or most days caffeine: Yes Type: coffee eating out: rarely or never during the past year weight has: remained stable what type of physical activity do you participate in: walking and weight training frequency: 5-6 times per week duration: 30-45 minutes/day feliciano/baptist: Scientologist seatbelt use: always do you feel safe at home: Yes additional social history: : 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 Date Name GA/Weeks Outcome Route Bth Weight Infant Gen Labor Lgth Anesthesia Del Locatn Provider FOB 12/09/22 Ines 41 live - full term 7lbs 6oz Female 12 hours epi dural Andie Rigo Roberts Delivery Date: 12/09/22 Last Updated by: Rachel Peña RN Retained placenta - bleed x8wk pp, D C 8wk pp Visit Details Expected Delivery Route/Plan Labor Preferences- CB/BF classes: no labor support person: Fabrizio labor intervention preferences: [] pain management options preferred: epidural cut cord/dad catch: maybe : yes PP control planned: discussed discussed possible routes of delivery and associated risks: [] special requests: [] Plans Covid status: [] Flu vaccine: [] Tdap vaccine: given Rhogam: na LARC form signed: yes Problem list reviewed and updated with the most current plan of care details and appropriate orders placed. Relevant counseling for the gestational age provided. Continue routine care and follow up unless otherwise noted in visit notes/problem list details OB Flowsheet Initial Weight: 189 lb Date -???-???-???-???-???- ???-???-???-???-???-? ??-???- EGA Weight BP Urine Prot -???-???-???-???-???- ???-???-???-???-???-? ??-???- Glucose FHR FuHt Pres Dilation -???-???-???-???-???- ???-???-???-???-???-? ??-???- Effaced St Visit Note 07/02/24 -???-???-???-???-???- ???-???-???-???-???-? ??-???- 10w 1d 189 lb (+0 oz) 112/76 -???-???-???-???-???- ???-???-???-???-???-? ??-???- 176 -???-???-???-???-???- ???-???-???-???-???-? ??-???- JV- CRL puma ures 10 weeks 6 days but still not off by more than 7 days. JANNET is per LMP 01/27/25. [facility] (more content not included)... Normal [facility] Laboratory - Chemistry and C hemistry - challengeOrdered By: Malathi Magdaleno on 12-17-2024 Glucose Ql (U) Negative [facility] Laboratory - UrinalysisOrder ed By: Malathi Magdaleno on 12-17-2024 Protein Ql (U) Negative [facility] Physical Chemistry Teacher Office Visit Reporton 12-17-2024 Physical Chemistry Teacher Office Visit Report [facility] [address], [address] [place] [address] OFFICE VISIT Date of Service: 12/17/24 MR#: [id number] Acct: [id number] Name: CYDNEY BROWN Rep #: [id number] : 2000 Provider: NOEMÍ oakley Age/Sex: 24/F [place] [facility] Status: Signed Intake Vital Signs 10/22/24 12:58 12/03/24 09:11 12/17/24 09:32 12/17/24 09:39 Height 5 ft 6 in 5 ft 6 in 5 ft 6 in 5 ft 6 in Weight: 214 lb 4 oz BMI 34.5 BP 104/80 Intake Visit Reasons: 34 wk ob Chief Complaint: 34 Week OB Special Education Paraeducator Required: No Is patient in pain?: No Allergies No Known Allergies Allergy (Verified 12/17/24 09:32) Medications ???Medication ???Instructions ???Recorded ???Confirmed ???Type albuterol sulfate 90 mcg/actuation 2 puff inhalation Q6H PRN 12/17/24 History aerosol inhaler shortness of breath or wheezing docosahexaenoic acid 200 mg 1 mg PO QHS 06/26/24 12/17/24 Hist ory capsule ( DHA) lactobacillus combination no.4 3 3,000 mmu cells PO QDAY 06/26/24 0 12/17/24 History billion cell capsule (Probiotic) magnesium 200 mg tablet 350 mg PO QDAY 06/26/24 12/17/24 H istory acetaminophen 500 mg capsule 1,000 mg PO Q6H PRN pain 10/29/24 12/17/24 History nystatin 100,000 unit/gram topical 1 applic topical BID #30 grams 0 12/17/24 12/17/24 Rx powder Last Menstrual Period: 04/22/24 Zika: Zika virus screening: Negative : No PFSH PFSH Surgical History S/P nasal surgery S/P wisdom tooth extraction S/P D C (status post dilation and curettage) Family History Grandmother Breast cancer maternal Grandfather Cancer Skin Aunt Cancer Skin Grandmother Heart disease Myocardial infarction Grandfather Kidney failure Father Pre-diabetes Social History adopted: No household members: spouse and children number of children: 1 current occupation: [employer] current occupational exposures/hazards: No pets and animals: No history of recent travel: No sexually active: Yes Smoking Status: Never smoker alcohol intake: current alcohol intake frequency: holidays/special occasions only details: Not while substance use type: does not use well-balanced diet: daily or most days caffeine: Yes Type: coffee eating out: rarely or never during the past year weight has: remained stable what type of physical activity do you participate in: walking and weight training frequency: 5-6 times per week duration: 30-45 minutes/day feliciano/baptist: Scientologist seatbelt use: always do you feel safe at home: Yes additional social history: : 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 Date Name GA/Weeks Outcome Route Bth Weight Gen Labor Lgth Anesthesia Del Locatn Provider FOB 12/09/22 Ines 41 live - full term 7lbs 6oz Female 12 hours epi dural Andie Rigo Roberts Delivery Date: 12/09/22 Last Updated by: Rachel Peña RN Retained placenta - bleed x8wk pp, D C 8wk pp HPI 34 wk ob Details: CYDNEY BROWN is a 24 year old who presents for routine OB visit. OB Visit JANNET Calculator Estimated Delivery Date Method Current WG Current Estimate 01/27/25 LMP (Certain) 34w 1d Expected Delivery Route/Plan Labor Preferences- CB/BF classes: no labor support person: Fabrizio labor intervention preferences: [] pain management options preferred: epidural cut cord/dad catch: maybe : yes PP control planned: discussed discussed possible routes of delivery and associated risks: [] special requests: [] Specific Issue/Plans Covid status: [] Flu vaccine: [] Tdap vaccine: given Rhogam: na LARC form signed: yes Problem list reviewed and updated with the most current plan of care details and appropriate orders placed. Relevant counseling for the gestational age provided. Continue routine care and follow up unless otherwise noted in visit notes/problem list details Initial Weight: 189 lb Date -???-???-???-???-???- ???-???-???-???-???-? ??-???- EGA Weight BP Urine Prot -???-???-???-???-???- ???-???-???-???-???-? ??-???- Glucose FHR FuHt Pres Dilation -???-???-???-???-???- ???-???-???-???-???-? ??-???- Effaced St Visit Note 07/02/24 -???-???-???-???-???- ???-???-???-???-???-? ??-???- 10w 1d 189 lb (+0 oz) 112/76 -???-???-???-???-???- ???-???-???-???-???-? ??-???- (more content not included)... Normal [facility] OB Triage Progress Noteon OB Triage Progress Note [facility] Medical Records Department [address] [place] [address] OB Triage Progress Note 12/13/24 1500 MR#: [id number] Acct: [id number] Name: CYDNEY BROWN Rep #: [id number] : 2000 24 From: Sophia Ellison MD PCP: NOEMÍ lAvarez Status:REG CLI Y DOS: Location: [place] [address] Progress Notes Date of Service: 12/13/24 Progress Note: Patient presents for triage evaluation secondary to dec movement FHT: 140 Moderate variability reactive no decelerations category I tracing [place]: no regular Contractions Assessment and plan: 33 weeks decreased movement Reactive NST, reassuring maternal and status patient discharged to home to follow-up as scheduled. See problem list details for additional plan information. Charges/Coding Procedures Urinary/Genital 52xxx-59xxx: 27088-47 non-stress test Interp 12/13/24 1501 Date Sophia Ellison MD Cosigner Signature (if applicable): Date CC: CONCESSION ATTENDANT-Sudeep Perea; Dr. Sophia Ellison MD Signed Normal [facility] Laboratory - Chemistry and C hemistry - challengeOrdered By: Lashay Tellez on 12-03-2024 Glucose Ql (U) Negative [facility] Laboratory - UrinalysisOrder ed By: Lashay Tellez on 12-03-2024 Protein Ql (U) Negative [facility] Physical Chemistry Teacher Office Visit Reporton 12-03-2024 Physical Chemistry Teacher Office Visit Report [facility], [address] [place] [address] OFFICE VISIT Date of Service: 12/03/24 MR#: [id number] Acct: [id number] Name: CYDNEY BROWN Rep #: [id number] : 2000 Provider: Dr. Lashay Franks DO Age/Sex: 24/F [place] [facility] Status: Signed Intake Vital Signs 09/24/24 09:00 11/19/24 08:30 12/03/24 09:10 12/03/24 09:11 Height 5 ft 6 in 5 ft 6 in 5 ft 6 in 5 ft 6 in Weight: 215 lb BMI 34.7 BP 127/86 H Intake Visit Reasons: 32 WK OB Special Education Paraeducator Required: No Is patient in pain?: No Allergies No Known Allergies Allergy (Verified 12/03/24 09:10) Medications ???Medication ???Instructions ???Recorded ???Confirmed ???Type albuterol sulfate 90 mcg/actuation 2 puff inhalation Q6H PRN 12/03/24 History aerosol inhaler shortness of breath or wheezing docosahexaenoic acid 200 mg 1 mg PO QHS 06/26/24 12/03/24 Hist ory capsule ( DHA) lactobacillus combination no.4 3 3,000 mmu cells PO QDAY 06/26/24 0 12/03/24 History billion cell capsule (Probiotic) magnesium 200 mg tablet 350 mg PO QDAY 06/26/24 12/03/24 H istory nystatin 100,000 unit/gram topical 1 applic topical BID #30 grams 0 10/22/24 12/03/24 Rx powder acetaminophen 500 mg capsule 1,000 mg PO Q6H PRN pain 10/29/24 12/03/24 History Last Menstrual Period: 04/22/24 Zika: Zika virus screening: Negative : No PFSH PFSH Surgical History S/P nasal surgery S/P wisdom tooth extraction S/P D C (status post dilation and curettage) Family History Grandmother Breast cancer maternal Grandfather Cancer Skin Aunt Cancer Skin Grandmother Heart disease Myocardial infarction Grandfather Kidney failure Father Pre-diabetes Social History adopted: No household members: spouse and children number of children: 1 current occupation: [employer] current occupational exposures/hazards: No pets and animals: No history of recent travel: No sexually active: Yes Smoking Status: Never smoker alcohol intake: current alcohol intake frequency: holidays/special occasions only details: Not while substance use type: does not use well-balanced diet: daily or most days caffeine: Yes Type: coffee eating out: rarely or never during the past year weight has: remained stable what type of physical activity do you participate in: walking and weight training frequency: 5-6 times per week duration: 30-45 minutes/day feliciano/baptist: Scientologist seatbelt use: always do you feel safe at home: Yes additional social history: : 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 Date Name GA/Weeks Outcome Route Bth Weight Gen Labor Lgth Anesthesia Del Locatn Provider FOB 12/09/22 Ines 41 live - full term 7lbs 6oz Female 12 hours epi dural Andie Rigo Roberts Delivery Date: 06/29/23 Last Updated by: Rachel Peña RN Retained placenta - bleed x8wk pp, D C 8wk pp HPI 32 WK OB Details: CYDNEY BROWN is a 24 year old who presents for routine OB visit. OB Visit JANNET Calculator Estimated Delivery Date Method Current WG Current Estimate 01/27/25 LMP (Certain) 32w 1d Expected Delivery Route/Plan Labor Preferences- CB/BF classes: no labor support person: Fabrizio labor intervention preferences: [] pain management options preferred: epidural cut cord/dad catch: maybe : yes PP control planned: discussed discussed possible routes of delivery and associated risks: [] special requests: [] Specific Issue/Plans Covid status: [] Flu vaccine: [] Tdap vaccine: [] Rhogam: na LARC form signed: yes Problem list reviewed and updated with the most current plan of care details and appropriate orders placed. Relevant counseling for the gestational age provided. Continue routine care and follow up unless otherwise noted in visit notes/problem list details Initial Weight: 189 lb Date -???-???-???-???-???- ???-???-???-???-???-? ??-???- EGA Weight BP Urine Prot -???-???-???-???-???- ???-???-???-???-???-? ??-???- Glucose FHR FuHt Pres Dilation -???-???-???-???-???- ???-???-???-???-???-? ??-???- Effaced St Visit Note 07/02/24 -???-???-???-???-???- ???-???-???-???-???-? ??-???- 10w 1d 189 lb (+0 oz) 112/76 -???-???-???-???-???- ???-???-???-???-???-? ??-???- 176 -???-???-???-???-???- (more content not included)... Normal [facility] - Chemistry and C hemistry - challengeOrdered By: Malathi Fillmore on 11-19-2024 Glucose Ql (U) Negative [facility] Laboratory - UrinalysisOrder ed By: Malathi Magdaleno on 11-19-2024 Protein Ql (U) Trace [facility] Physical Chemistry Teacher Office Visit Reporton 11-19-2024 Physical Chemistry Teacher Office Visit Report [facility] [address], [address] [place] [address] OFFICE VISIT Date of Service: 11/19/24 MR#: [id number] Acct: [id number] Name: CYDNEY BROWN Rep #: [id number] : 2000 Provider: NOEMÍ oakley Age/Sex: 24/F [place] [facility] [place]: Signed Intake Vital Signs 09/24/24 09:00 11/06/24 09:54 11/19/24 08:30 Height 5 ft 6 in 5 ft 6 in 5 ft 6 in Weight: 214 lb 2 oz 214 lb 6 oz BMI 34.5 34.6 BP 103/51 L 102/64 Intake Visit Reasons: 30 WK OB Chief Complaint: 30 Week OB Special Education Paraeducator Required: No Is patient in pain?: No Allergies No Known Allergies Allergy (Verified 11/19/24 08:29) Medications ???Medication ???Instructions ???Recorded ???Confirmed ???Type albuterol sulfate 90 mcg/actuation 2 puff inhalation Q6H PRN 11/19/24 History aerosol inhaler shortness of breath or wheezing docosahexaenoic acid 200 mg 1 mg PO QHS 06/26/24 11/19/24 Hist ory capsule ( DHA) lactobacillus combination no.4 3 3,000 mmu cells PO QDAY 06/26/24 0 11/19/24 History billion cell capsule (Probiotic) magnesium 200 mg tablet 350 mg PO QDAY 06/26/24 11/19/24 H istory nystatin 100,000 unit/gram topical 1 applic topical BID #30 grams 0 10/22/24 11/19/24 Rx powder acetaminophen 500 mg capsule 1,000 mg PO Q6H PRN pain 10/29/24 11/19/24 History Last Menstrual Period: 04/22/24 Zika: Zika virus screening: Negative : No PFSH PFSH Surgical History S/P nasal surgery S/P wisdom tooth extraction S/P D C (status post dilation and curettage) Family History Grandmother Breast cancer maternal Grandfather Cancer Skin Aunt Cancer Skin Grandmother Heart disease Myocardial infarction Grandfather Kidney failure Father Pre-diabetes Social History adopted: No household members: spouse and children number of children: 1 current occupation: [employer] current occupational exposures/hazards: No pets and animals: No history of recent travel: No sexually active: Yes Smoking Status: Never smoker alcohol intake: current alcohol intake frequency: holidays/special occasions only details: Not while substance use type: does not use well-balanced diet: daily or most days caffeine: Yes Type: coffee eating out: rarely or never during the past year weight has: remained stable what type of physical activity do you participate in: walking and weight training frequency: 5-6 times per week duration: 30-45 minutes/day feliciano/baptist: Scientologist seatbelt use: always do you feel safe at home: Yes additional social history: : 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 Date Name GA/Weeks Outcome Route Bth Weight Infant Gen Labor Lgth Anesthesia Del Locatn Provider FOB 12/09/22 Ines 41 live - full term 7lbs 6oz Female 12 hours epi dural Nadie Rigo Roberts Delivery Date: 12/09/22 Last Updated by: Rachel Peña RN Retained placenta - bleed x8wk pp, D C 8wk pp HPI 30 WK OB Details: CYDNEY BROWN is a 24 year old who presents for routine OB visit. OB Visit JANNET Calculator Estimated Delivery Date Method Current WG Current Estimate 01/27/25 LMP (Certain) 30w 1d Expected Delivery Route/Plan Labor Preferences- CB/BF classes: no labor support person: Fabrizio labor intervention preferences: [] pain management options preferred: epidural cut cord/dad catch: maybe : yes PP control planned: discussed discussed possible routes of delivery and associated risks: [] special requests: [] Specific Issue/Plans Covid status: [] Flu vaccine: [] Tdap vaccine: [] Rhogam: na LARC form signed: yes Problem list reviewed and updated with the most current plan of care details and appropriate orders placed. Relevant counseling for the gestational age provided. Continue routine care and follow up unless otherwise noted in visit notes/problem list details Initial Weight: 189 lb Date -???-???-???-???-???- ???-???-???-???-???-? ??-???- EGA Weight BP Urine Prot -???-???-???-???-???- ???-???-???-???-???-? ??-???- Glucose FHR FuHt Pres Dilation -???-???-???-???-???- ???-???-???-???-???-? ??-???- Effaced St Visit Note 07/02/24 -???-???-???-???-???- ???-???-???-???-???-? ??-???- 10w 1d 189 lb (+0 oz) 112/76 -???-???-???-???-???- ???-???-???-???-???-? ??-???- 1 (more content not included)... Normal [facility] - Chemistry and C hemistry - challengeOrdered By: Gonzalez Dunne on 11-06-2024 Glucose Ql (U) Negative [facility] Laboratory - UrinalysisOrder ed By: Gonzalez Dunne on 11-06-2024 Protein Ql (U) Negative [facility] Physical Chemistry Teacher Office Visit Reporton 11-06-2024 Physical Chemistry Teacher Office Visit Report [facility]'s [address], [address] [place] [address] OFFICE VISIT Date of Service: 11/06/24 MR#: [id number] Acct: [id number] Name: CYDNEY BROWN Rep #: [id number] : 2000 Provider: HARJIT Castañeda ams Age/Sex: 24/F [place] [facility] [place]: Signed Intake Vital Signs 09/24/24 09:00 10/22/24 12:58 10/28/24 23:52 11/06/24 09:54 Height 5 ft 6 in 5 ft 6 in 5 ft 6 in 5 ft 6 in Weight: 214 lb 2 oz BMI 34.5 BP 103/51 L Intake Visit Reasons: 28 WK OB Chief Complaint: 28wk OB Special Education Paraeducator Required: No Is patient in pain?: No Allergies No Known Allergies Allergy (Verified 11/06/24 09:52) Medications ???Medication ???Instructions ???Recorded ???Confirmed ???Type albuterol sulfate 90 mcg/actuation 2 puff inhalation Q6H PRN 11/06/24 History aerosol inhaler shortness of breath or wheezing docosahexaenoic acid 200 mg 1 mg PO QHS 06/26/24 11/06/24 Hist ory capsule ( DHA) lactobacillus combination no.4 3 3,000 mmu cells PO QDAY 06/26/24 0 11/06/24 History billion cell capsule (Probiotic) magnesium 200 mg tablet 350 mg PO QDAY 06/26/24 11/06/24 H istory nystatin 100,000 unit/gram topical 1 applic topical BID #30 grams 0 10/22/24 11/06/24 Rx powder acetaminophen 500 mg capsule 1,000 mg PO Q6H PRN pain 10/29/24 11/06/24 History Last Menstrual Period: 04/22/24 Have you fallen in the past year?: No PFSH PFSH Surgical History S/P nasal surgery S/P wisdom tooth extraction S/P D C (status post dilation and curettage) Family History Grandmother Breast cancer maternal Grandfather Cancer Skin Aunt Cancer Skin Grandmother Heart disease Myocardial infarction Grandfather Kidney failure Father Pre-diabetes Social History adopted: No household members: spouse and children number of children: 1 current occupation: [employer] current occupational exposures/hazards: No pets and animals: No history of recent travel: No sexually active: Yes Smoking Status: Never smoker alcohol intake: current alcohol intake frequency: holidays/special occasions only details: Not while substance use type: does not use well-balanced diet: daily or most days caffeine: Yes Type: coffee eating out: rarely or never during the past year weight has: remained stable what type of physical activity do you participate in: walking and weight training frequency: 5-6 times per week duration: 30-45 minutes/day feliciano/baptist: Scientologist seatbelt use: always do you feel safe at home: Yes 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 Date Name GA/Weeks Outcome Route Bth Weight Infant Gen Labor Lgth Anesthesia Del Locatn Provider FOB 12/09/22 Ines 41 live - full term 7lbs 6oz Female 12 hours epi dural Andie Rigo Roberts Delivery Date: 12/09/22 Last Updated by: Rachel Peña RN Retained placenta - bleed x8wk pp, D C 8wk pp HPI 28 WK OB Details: CYDNEY BROWN is a 24 year old who presents for routine OB visit. OB Visit JANNET Calculator Estimated Delivery Date Method Current WG Current Estimate 01/27/25 LMP (Certain) 28w 2d Expected Delivery Route/Plan Labor Preferences- CB/BF classes: no labor support person: Fabrizio labor intervention preferences: [] pain management options preferred: epidural cut cord/dad catch: maybe : yes PP control planned: discussed discussed possible routes of delivery and associated risks: [] special requests: [] Specific Issue/Plans Covid status: [] Flu vaccine: [] Tdap vaccine: [] Rhogam: na LARC form signed: yes Problem list reviewed and updated with the most current plan of care details and appropriate orders placed. Relevant counseling for the gestational age provided. Continue routine care and follow up unless otherwise noted in visit notes/problem list details Initial Weight: 189 lb Date -???-???-???-???-???- ???-???-???-???-???-? ??-???- EGA Weight BP Urine Prot -???-???-???-???-???- ???-???-???-???-???-? ??-???- Glucose FHR FuHt Pres Dilation -???-???-???-???-???- ???-???-???-???-???-? ??-???- Effaced St Visit Note 07/02/24 -???-???-???-???-???- ???-???-???-???-???-? ??-???- 10w 1d 189 lb (+0 oz) 112/76 -???-???-???-???-???- ???-???-???-???-???-? ??-???- 176 -???-???-???-???-???- ???-???-???- (more content not included)... Normal [facility] Urine Cultureon 10-30-2024 URC Mixed Gram Positive Organisms [place] Count 11,000-25,000 MIXC Mixed contaminants. Submit a new specimen if indicated. Normal [facility] Comment on above: Performed By: #### M 100.9232 #### [facility] [place], [address] OB Triage Progress Noteon OB Triage Progress Note [facility] Medical Records Department [address] [place] [address] OB Triage Progress Note 10/29/24 0736 MR#: [id number] Acct: [id number] Name: CYDNEY BROWN Rep #: [id number] : 2000 24 From: Sophia Ellison MD PCP: NOEMÍ Alvarez Status:DEP CLI Y DOS: Location: WPOUT Progress Notes Date of Service: 10/28/24 Progress Note: Patient presents for triage evaluation secondary to threatened contracitons FHT: 150 Moderate variability reactive no decelerations category I tracing [place]: isolated Contractions Assessment and plan: 27 weeks threatened contractions cervix closed urine culture sent Reactive NST, reassuring maternal and status patient discharged to home to follow-up as scheduled. See problem list details for additional plan information. Laboratory Studies: Laboratory Tests 10/28/24 Range/Units 00:20 Urine Color Yellow (Yellow) Urine Clarity Clear (Clear) Urine pH 7.0 (5.0 - 8.0) Ur Specific [place] 1.015 (1.002-1.030) Urine Protein 15 H (Negative) mg/dl Urine Glucose (UA) Normal (Normal) mg/dl Urine Ketones Negative (Negative) mg/dl Urine Occult Blood 10 H (Negative) /ul Urine Nitrite Negative (Negative) Urine Bilirubin Negative (Negative) mg/dL Urine Urobilinogen Normal (Normal) mg/dl Ur Leukocyte Esterase Negative (Negative) /ul Charges/Coding Procedures Urinary/Genital 52xxx-59xxx: [id number] non-stress test Interp 10/29/24 0737 Date Sophia Ellison MD Cosigner Signature (if applicable): Date CC: NOEMÍ Perea; Dr. Sophia Ellison MD Signed Normal [facility] Urinalysis, Routine (Dipstic k)on 10-29-2024 BILIRUBIN URINE Negative Normal Negative [facility] Comment on above: Order Comment: CLEAN CATCH Performed By: #### L 400.2010 #### [facility] [address] [place], [address] Clarity (U) Clear Normal Clear [facility] Comment on above: Order Comment: CLEAN CATCH Performed By: #### L 400.2010 #### [facility] [address] [place], [address] Color (U) Yellow Normal Yellow [facility] Comment on above: Order Comment: CLEAN CATCH Performed By: #### L 400.2010 #### [facility] [address] [place], [address] GLUCOSE, UR Normal Normal Normal [facility] Comment on above: Order Comment: CLEAN CATCH Performed By: #### L 400.2010 #### [facility] [address] [place], [address] KETONE UR Negative Normal Negative [facility] Comment on above: Order Comment: CLEAN CATCH Performed By: #### L 400.2010 #### [facility] [address] [place], [address] LEUK ESTERASE Negative Normal Negative [facility] Comment on above: Order Comment: CLEAN CATCH Performed By: #### L 400.2010 #### [facility] [address] [place], [address] Nitrite Ql (U) Negative Normal Negative [facility] Comment on above: Order Comment: CLEAN CATCH Performed By: #### L 400.2010 #### [facility] [address] [place], [address] OCCULT BLOOD-UR 10 /ul Abnormal Negative [facility] Comment on above: Order Comment: CLEAN CATCH Performed By: #### L 400.2010 #### [facility] [address] [place], [address] pH UR 7.0 Normal 5.0 - 8.0 [facility] Comment on above: Order Comment: CLEAN CATCH Performed By: #### L 400.2010 #### [facility] [address] [place], [address] PROT DIPSTX 15 mg/dl Abnormal Negative [facility] Comment on above: Order Comment: CLEAN CATCH Performed By: #### L 400.2010 #### [facility] [address] [place], [address] SP.GR. DIPSTX 1.015 Normal 1.002-1.030 [facility] Comment on above: Order Comment: CLEAN CATCH Performed By: #### L 400.2010 #### [facility] [address] [place], [address] UROBILI Normal Normal Normal [facility] Comment on above: Order Comment: CLEAN CATCH Performed By: #### L 400.2010 #### [facility] [address] [place], [address] Urine cultureOrdered By: Israel Ellison on 10-29-2024 Bacteria identified Cx Nom (U) Positive Abnormal [facility] Bilirubin Test strip Ql (U)O rdered By: Sophia Ellison on 10-28-2024 Bilirubin Ql (U) Negative Negative [facility] Ketones Test strip Ql (U)Ord ered By: Sophia Ellison on 10-28-2024 Ketones Ql (U) Negative Negative [facility] Nitrite Test strip Ql (U)Ord ered By: Sophia Ellison on 10-28-2024 Nitrite Ql (U) Negative Negative [facility] Protein Test strip Ql (U)Ord ered By: Sophia Ellison on 10-28-2024 Protein Ql (U) 15 mg/dl High Negative [facility] Urine clarityOrdered By: Israel Ellison on 10-28-2024 Clarity (U) Clear Clear [facility] Urine color determinationOrd ered By: Sophia Ellison on 10-28-2024 Color (U) Yellow Yellow [facility] Urine glucose detectionOrder ed By: Sophia Ellison on 10-28-2024 Glucose Ql (U) Normal mg/dl Normal [facility] Urine leukocyte esterase det ection by dipstickOrdered By: Sophia Ellison on 10-28-2024 Leukocyte esterase Test strip Ql (U) Negative Negative [facility] Urine pHOrdered By: Sophia mejia on 10-28-2024 pH (U) 7.0 [pH] 5.0 - 8.0 [facility] Urine specific gravity measu rementOrdered By: Sophia Ellison on 10-28-2024 Specific gravity (U) [Rel density] 1.015 1.002-1.030 [facility] Urine urobilinogen measureme ntOrdered By: Sophia Ellison on 10-28-2024 Urobilinogen Ql (U) Normal mg/dl Normal [facility] Absolute lymphocyte countOrd ered By: Sophia Ellison on 10-22-2024 Lymphocytes Auto (Unsp spec) [#/Vol] 1.49 10*3/uL 0.83-4.51 [facility] Absolute neutrophil countOrd ered By: Sophia Ellison on 10-22-2024 Neutrophils (Bld) [#/Vol] 9.0 10*3/uL High 2.0-7.7 [facility] Automated lymphocyte count a s percentage of total leukocytesOrdered By: Sophia Ellison on 10-22-2024 Lymphocytes/100 WBC Auto (Unsp spec) 13.2 % Low 19-41 [facility] Basophil percentageOrdered B y: Sophia Ellison on 10-22-2024 Basophils/100 WBC (Bld) 0.2 % 0-1 [facility] CBC W/Diff, Automatedon 10-11 Absolute Lymph 1.49 X10 3/uL Normal 0.83-4.51 [facility] Comment on above: Performed By: #### L 509.8002, L501.0250, L3890.6006, L100.0100 ####[facility] [address] [place], [address] Absolute Neut 9.0 X10 3/uL High 2.0-7.7 [facility] Comment on above: Performed By: #### L 509.8002, L501.0250, L3890.6006, L100.0100 ####[facility] [address] [place], [address] Basophils/100 WBC (Bld) 0.2 % Normal 0-1 [facility] Comment on above: Performed By: #### L 509.8002, L501.0250, L3890.6006, L100.0100 ####[facility] [address] [place], [address] Eosinophils/100 WBC (Bld) 0.3 % Normal 0-5 [facility] Comment on above: Performed By: #### L 509.8002, L501.0250, L3890.6006, L100.0100 ####[facility] [address] [place], [address] Erythrocyte distribution width (RBC) [Ratio] 13.5 % Normal 11.6-14.6 [facility] Comment on above: Performed By: #### L 509.8002, L501.0250, L3890.6006, L100.0100 ####[facility] [address] [place], [address] Hematocrit (Bld) [Volume fraction] 40.1 % Normal 37-47 [facility] Comment on above: Performed By: #### L 509.8002, L501.0250, L3890.6006, L100.0100 ####[facility] [address] [place], [address] Hemoglobin (Bld) [Mass/Vol] 13.0 g/dL Normal 12.0-15.0 [facility] Comment on above: Performed By: #### L 509.8002, L501.0250, L3890.6006, L100.0100 ####[facility] [address] [place], [address] IG% 1.200 High 0.0-0.9 [facility] Comment on above: Result Comment: IG% - Immature Granulocytes (promyelocytes, myelocytes and metamyelocytes) > 1% indicates that a LEFT SHIFT is Present. Performed By: #### L 509.8002, L501.0250, L3890.6006, L100.0100 ####[facility] [address] [place], [address] Lymphocytes/100 WBC (Bld) 13.2 % Low 19-41 [facility] Comment on above: Performed By: #### L 509.8002, L501.0250, L3890.6006, L100.0100 ####[facility] [address] [place], [address] MCH (RBC) [Entitic mass] 30.1 pg Normal 27.0-32.0 [facility] Comment on above: Performed By: #### L 509.8002, L501.0250, L3890.6006, L100.0100 ####[facility] [address] [place], [address] MCHC (RBC) [Mass/Vol] 32.4 g/dL Normal 32-36 [facility] Comment on above: Performed By: #### L 509.8002, L501.0250, L3890.6006, L100.0100 ####[facility] [address] [place], [address] MCV (RBC) [Entitic vol] 92.8 fL Normal 81-99 [facility] Comment on above: Performed By: #### L 509.8002, L501.0250, L3890.6006, L100.0100 ####[facility] [address] [place], [address] Monocytes/100 WBC (Bld) 5.1 % Normal 0-10 [facility] Comment on above: Performed By: #### L 509.8002, L501.0250, L3890.6006, L100.0100 ####[facility] [address] [place], [address] Neutrophils/100 WBC (Bld) 80.0 % High 47-70 [facility] Comment on above: Performed By: #### L 509.8002, L501.0250, L3890.6006, L100.0100 ####[facility] [address] [place], [address] Nucleated RBC (Bld) [#/Vol] 0 10*3/uL Normal 0-5 [facility] Comment on above: Performed By: #### L 509.8002, L501.0250, L3890.6006, L100.0100 ####[facility] [address] [place], [address] Platelet mean volume (Bld) [Entitic vol] 9.4 fL Normal 6.2-12.0 [facility] Comment on above: Performed By: #### L 509.8002, L501.0250, L3890.6006, L100.0100 ####[facility] [address] [place], [address] Platelets (Bld) [#/Vol] 358 10*3/uL Normal 150-450 [facility] Comment on above: Performed By: #### L 509.8002, L501.0250, L3890.6006, L100.0100 ####[facility] [address] [place], [address] RBC (Bld) [#/Vol] 4.32 10*6/uL Normal 4.2-5.4 [facility] Comment on above: Performed By: #### L 509.8002, L501.0250, L3890.6006, L100.0100 ####[facility] [address] [place], [address] RDW SD 46.0 fl High 35.1-43.9 [facility] Comment on above: Performed By: #### L 509.8002, L501.0250, L3890.6006, L100.0100 ####[facility] [address] [place], [address] WBC (Bld) [#/Vol] 11.3 10*3/uL High 4.4-11.0 [facility] Comment on above: Performed By: #### L 509.8002, L501.0250, L3890.6006, L100.0100 ####[facility] [address] [place], [address] Eosinophil percentageOrdered By: Sophia Ellison on 10-22-2024 Eosinophils/100 WBC (Bld) 0.3 % 0-5 [facility] Erythrocyte distribution wid th ratioOrdered By: Sophia Ellison on 10-22-2024 Erythrocyte distribution width (RBC) [Ratio] 13.5 % 11.6-14.6 [facility] Erythrocyte distribution wid th standard deviationOrdered By: Sophia Ellison on 10-22-2024 Erythrocyte distribution width (RBC) [Ratio] 46.0 fl High 35.1-43.9 [facility] Glucose Challenge Gest 1H 50 regi 10-22-2024 GLU GEST 50g 1H 85 mg/dL Normal 70-140 [facility] Comment on above: Performed By: #### L 509.8002, L501.0250, L3890.6006, L100.0100 ####[facility] [address] [place], [address] Glucose measurement at 2 rosas rs post-dose gestational glucose tolerance testOrdered By: Sophia Ellison on 10-22-2024 Glucose [Mass/Vol] 85 mg/dL 70-140 [facility] HIVon 10-22-2024 HIV Non-Reactive Normal Nonreactive [facility] Comment on above: Result Comment: Non- Reactive Reactive Repeatedly reactive samples must be confirmed according to CDC recommended confirmatory algorithms. The subresults for either HIVAG or AHIV can be used as an aid in the selection of the confirmation algorithm for reactive samples. Send out specimens with Reactive results to [facility] for confirmation. Order the HIV antibody detection and differentiation: lc#[id number] Performed By: #### L 509.8002, L501.0250, L3890.6006, L100.0100 ####[facility] [address] [place], [place], [address] Hematocrit Auto (Bld) [Volum e fraction]Ordered By: Sophia Ellison on 10-22-2024 Hematocrit (Bld) [Volume fraction] 40.1 % 37-47 [facility] Hemoglobin measurementOrdere d By: Sophia Ellison on 10-22-2024 Hemoglobin (Bld) [Mass/Vol] 13.0 g/dL 12.0-15.0 [facility] Immature granulocytes/100 WB C Auto (Bld)Ordered By: Sophia Ellison on 10-22-2024 Immature granulocytes/100 WBC (Bld) 1.200 % High 0.0-0.9 [facility] Comment on above: IG% - Immature Granu locytes (promyelocytes, myelocytes and metamyelocytes) > 1% indicates that a LEFT SHIFT is Present. Laboratory - Chemistry and C hemistry - challengeOrdered By: Malathi Magdaleno on 10-22-2024 Glucose Ql (U) Negative [facility] - UrinalysisOrder ed By: Malathi Magdaleno on 10-22-2024 Protein Ql (U) Negative [facility] MCV (mean corpuscular volume ) determinationOrdered By: Sophia Ellison on 10-22-2024 MCV (RBC) [Entitic vol] 92.8 fL 81-99 [facility] Mean corpuscular hemoglobin (MCH) determinationOrdered By: Sophia Ellison on 10-22-2024 MCH (RBC) [Entitic mass] 30.1 pg 27.0-32.0 [facility] Mean corpuscular hemoglobin concentration (MCHC) determinationOrdered By: Sophia Ellison on 10-22-2024 MCHC (RBC) [Mass/Vol] 32.4 g/dL 32-36 [facility] Mean platelet volume determi nationOrdered By: Sophia Ellison on 10-22-2024 Platelet mean volume (Bld) [Entitic vol] 9.4 fL 6.2-12.0 [facility] Monocyte percentageOrdered B y: Sophia Ellison on 10-22-2024 Monocytes/100 WBC (Bld) 5.1 % 0-10 [facility] Neutrophil percentageOrdered By: Sophia Ellison on 10-22-2024 Neutrophils/100 WBC (Bld) 80.0 % High 47-70 [facility] No Panel InformationOrdered By: Sophia Ellison on 10-22-2024 HIV (1&2) Antibody Non-Reactive Nonreactive [facility] Comment on above: Non-ReactiveReactive Repeatedly reactive samples must be confirmed according to CDC recommended confirmatory algorithms. The subresults for either HIVAG or AHIV can be used as an aid in the selection of the confirmation algorithm for reactive samples.Send out specimens with Reactive results to [facility] for confirmation.Order the HIV antibody detection and differentiation: #[id number] Nucleated red blood cell per centageOrdered By: Sophia Ellison on 10-22-2024 Nucleated RBC/100 WBC (Bld) [Ratio] 0 % 0-5 [facility] Physical Chemistry Teacher Office Visit Reporton 10-22-2024 Physical Chemistry Teacher Office Visit Report [facility] [address], [address] [place] [address] OFFICE VISIT Date of Service: 10/22/24 MR#: [id number] Acct: [id number] Name: CYDNEY BROWN Rep #: [id number] : 2000 Provider: NOEMÍ oakley Age/Sex: 24/F [place] [facility] [place]: Signed Intake Vital Signs 08/27/24 14:39 09/24/24 09:00 10/22/24 12:58 Height 5 ft 6 in 5 ft 6 in 5 ft 6 in Weight: 209 lb 2 oz BMI 33.7 BP 98/66 Intake Visit Reasons: 26 wk ob/GLUCOSE Chief Complaint: 26 Week OB/Glucose Special Education Paraeducator Required: No Is patient in pain?: No Allergies No Known Allergies Allergy (Verified 10/22/24 12:59) Medications ???Medication ???Instructions ???Recorded ???Confirmed ???Type albuterol sulfate 90 mcg/actuation 2 puff inhalation Q6H PRN 10/22/24 History aerosol inhaler docosahexaenoic acid 200 mg mg PO 06/26/24 10/22/24 History capsule ( DHA) lactobacillus combination no.4 3 3,000 mmu cells PO QDAY 06/26/24 0 10/22/24 History billion cell capsule (Probiotic) magnesium 200 mg tablet 200 mg PO QDAY 06/26/24 10/22/24 H istory vitamin B complex (B-Complex 1 tab PO QDAY 06/26/24 10/22/24 Hi story tablet) promethazine 12.5 mg tablet 12.5 mg PO Q6H PRN nausea and 07/1410/22/24 Rx vomiting #60 tabs nystatin 100,000 unit/gram topical 1 applic topical BID #30 grams 0 10/22/24 10/22/24 Rx powder Last Menstrual Period: 04/22/24 Zika: Zika virus screening: Negative : Yes PFSH PFSH Surgical History S/P nasal surgery S/P wisdom tooth extraction S/P D C (status post dilation and curettage) Family History Grandmother Breast cancer maternal Grandfather Cancer Skin Aunt Cancer Skin Grandmother Heart disease Myocardial infarction Grandfather Kidney failure Father Pre-diabetes Social History adopted: No household members: spouse and children number of children: 1 current occupation: [employer] current occupational exposures/hazards: No pets and animals: No history of recent travel: No sexually active: Yes Smoking Status: Never smoker alcohol intake: current alcohol intake frequency: holidays/special occasions only details: Not while substance use type: does not use well-balanced diet: daily or most days caffeine: Yes Type: coffee eating out: rarely or never during the past year weight has: remained stable what type of physical activity do you participate in: walking and weight training frequency: 5-6 times per week duration: 30-45 minutes/day feliciano/baptist: Scientologist seatbelt use: always do you feel safe at home: Yes additional social history: : 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 Date Name GA/Weeks Outcome Route Bth Weight Gen Labor Lgth Anesthesia Del Locatn Provider FOB 12/09/22 Ines 41 live - full term 7lbs 6oz Female 12 hours epi dural Andie Rigo Roberts Delivery Date: 12/09/22 Last Updated by: Rachel Peña RN Retained placenta - bleed x8wk pp, D C 8wk pp HPI 26 wk ob/GLUCOSE Details: CYDNEY BROWN is a 24 year old who presents for routine OB visit. OB Visit JANNET Calculator Estimated Delivery Date Method Current WG Current Estimate 01/27/25 LMP (Certain) 26w 1d Expected Delivery Route/Plan Labor Preferences- CB/BF classes: no labor support person: Fabrizio labor intervention preferences: [] pain management options preferred: epidural cut cord/dad catch: maybe : yes PP control planned: discussed discussed possible routes of delivery and associated risks: [] special requests: [] Specific Issue/Plans Covid status: [] Flu vaccine: [] Tdap vaccine: [] Rhogam: na LARC form signed: yes Problem list reviewed and updated with the most current plan of care details and appropriate orders placed. Relevant counseling for the gestational age provided. Continue routine care and follow up unless otherwise noted in visit notes/problem list details Initial Weight: 189 lb Date -???-???-???-???-???- ???-???-???-???-???-? ??-???- EGA Weight BP Urine Prot -???-???-???-???-???- ???-???-???-???-???-? ??-???- Glucose FHR FuHt Pres Dilation -???-???-???-???-???- ???-???-???-???-???-? ??-???- Effaced St Visit Note 07/02/24 -???-???-???-???-???- ???-???-???-???-???-? ??-???- 10w 1d 189 lb (+0 (more content not included)... Normal [facility] Platelet countOrdered By: Dre Ellison on 10-22-2024 Platelets (Bld) [#/Vol] 358 10*3/uL 150-450 [facility] RBC Auto (Bld) [#/Vol]Ordere d By: Sophia Ellison on 10-22-2024 RBC (Bld) [#/Vol] 4.32 10*6/uL 4.2-5.4 [facility] Syphilis Antibodieson 2024 Syphilis Abs Non-Reactive Normal Nonreactive [facility] Comment on above: Performed By: #### L 509.8002, L501.0250, L3890.6006, L100.0100 ####[facility] [address] [place], [address] White blood cell (WBC) count Ordered By: Sophia Ellison on 10-22-2024 WBC (Bld) [#/Vol] 11.3 10*3/uL High 4.4-11.0 [facility] Laboratory - Chemistry and C hemistry - challengeOrdered By: Sophia Ellison on 09-24-2024 Glucose Ql (U) Negative [facility] - UrinalysisOrder ed By: Sophia Ellison on 09-24-2024 Protein Ql (U) Negative [facility] Physical Chemistry Teacher Office Visit Reporton 09-24-2024 Physical Chemistry Teacher Office Visit Report [facility] [address], [address] [place] [address] OFFICE VISIT Date of Service: 09/24/24 MR#: [id number] Acct: [id number] Name: CYDNEY BROWN Rep #: [id number] : 2000 Provider: Dr. Sophia mora MD Age/Sex: 24/F [place] [facility] [place]: Signed Intake Vital Signs 07/30/24 13:15 08/27/24 14:39 09/24/24 09:00 Height 5 ft 6 in 5 ft 6 in 5 ft 6 in Weight: 192 lb 4 oz 202 lb 6 oz BMI 31.0 32.6 BP 124/77 H 100/63 Intake Visit Reasons: 22wk ob Special Education Paraeducator Required: No Is patient in pain?: No Allergies No Known Allergies Allergy (Verified 09/24/24 09:01) Medications ???Medication ???Instructions ???Recorded ???Confirmed ???Type albuterol sulfate 90 mcg/actuation 2 puff inhalation Q6H PRN 09/24/24 History aerosol inhaler docosahexaenoic acid 200 mg mg PO 06/26/24 09/24/24 History capsule ( DHA) lactobacillus combination no.4 3 3,000 mmu cells PO QDAY 06/26/24 0 09/24/24 History billion cell capsule (Probiotic) magnesium 200 mg tablet 200 mg PO QDAY 06/26/24 09/24/24 H istory vitamin B complex (B-Complex 1 tab PO QDAY 06/26/24 09/24/24 Hi story tablet) promethazine 12.5 mg tablet 12.5 mg PO Q6H PRN nausea and 07/1409/24/24 Rx vomiting #60 tabs Last Menstrual Period: 04/22/24 Zika: Zika virus screening: Negative : No PFSH PFSH Surgical History S/P nasal surgery S/P wisdom tooth extraction S/P D C (status post dilation and curettage) Family History Grandmother Breast cancer maternal Grandfather Cancer Skin Aunt Cancer Skin Grandmother Heart disease Myocardial infarction Grandfather Kidney failure Father Pre-diabetes Social History adopted: No household members: spouse and children number of children: 1 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 current occupational exposures/hazards: No pets and animals: No history of recent travel: No sexually active: Yes Smoking Status: Never smoker alcohol intake: current alcohol intake frequency: holidays/special occasions only details: Not while substance use type: does not use well-balanced diet: daily or most days caffeine: Yes Type: coffee eating out: rarely or never during the past year weight has: remained stable what type of physical activity do you participate in: walking and weight training frequency: 5-6 times per week duration: 30-45 minutes/day feliciano/baptist: Scientologist seatbelt use: always do you feel safe at home: Yes additional social history: : 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 Date Name GA/Weeks Outcome Route Bth Weight Infant Gen Labor Lgth Anesthesia Del Locatn Provider FOB 12/09/22 Ines 41 live - full term 7lbs 6oz Female 12 hours epi dural Andie Rigo Melisa Roberts Delivery Date: 12/09/22 Last Updated by: Rachel Peña RN Retained placenta - bleed x8wk pp, D C 8wk pp HPI 22wk ob Details: CYDNEY BROWN is a 24 year old who presents for routine OB visit. OB Visit JANNET Calculator Estimated Delivery Date Method Current WG Current Estimate 01/27/25 LMP (Certain) 22w 2d Expected Delivery Route/Plan Labor Preferences- CB/BF classes: [] labor support person: [] labor intervention preferences: [] pain management options preferred: [] cut cord/dad catch: [] : [] PP control planned: [] discussed possible routes of delivery and associated risks: [] special requests: [] Specific Issue/Plans Covid status: [] Flu vaccine: [] Tdap vaccine: [] Rhogam: [] LARC form signed: [] Problem list reviewed and updated with the most current plan of care details and appropriate orders placed. Relevant counseling for the gestational age provided. Continue routine care and follow up unless otherwise noted in visit notes/problem list details Initial Weight: 189 lb Date -???-???-???-???-???- ???-???-???-???-???-? ??-???- EGA Weight BP Urine Prot -???-???-???-???-???- ???-???-???-???-???-? ??-???- Glucose FHR FuHt Pres Dilation -???-???-???-???-???- ???-???-???-???-???-? ??-???- Effaced St Visit Note 07/02/24 -???-???-???-???-???- ???-???-???-???-???-? ??-???- 10w 1d 189 lb (+0 oz) 112/76 -???-???-???-???-???- ???-???-???-???-???-? ??-???- 176 -???-???-???-???-???- ???-???-???-???-???-? ??-???- JV- CRL puma ures 10 weeks 6 day (more content not included)... Normal [facility] - Chemistry and C hemistry - challengeOrdered By: Lashay Tellez on 08-27-2024 Glucose Ql (U) Negative [facility] - UrinalysisOrder ed By: Lashay Tellez on 08-27-2024 Protein Ql (U) Negative [facility] Physical Chemistry Teacher Office Visit Reporton 08-27-2024 Physical Chemistry Teacher Office Visit Report [facility] [address], [address] [place] [address] OFFICE VISIT Date of Service: 08/27/24 MR#: [id number] Acct: [id number] Name: CYDNEY BROWN Rep #: [id number] : 2000 Provider: Dr. Lashay Franks DO Age/Sex: 24/F [place] [facility] [place]: Signed Intake Vital Signs 07/02/24 10:19 07/30/24 13:15 08/27/24 14:38 08/27/24 14:39 Height 5 ft 6 in 5 ft 6 in 5 ft 6 in 5 ft 6 in Weight: 201 lb BMI 32.4 BP 115/77 Intake Visit Reasons: 18 wk ob Special Education Paraeducator Required: No Is patient in pain?: No Allergies No Known Allergies Allergy (Verified 08/27/24 14:38) Medications ???Medication ???Instructions ???Recorded ???Confirmed ???Type albuterol sulfate 90 mcg/actuation 2 puff inhalation Q6H PRN 08/27/24 History aerosol inhaler docosahexaenoic acid 200 mg mg PO 06/26/24 08/27/24 History capsule ( DHA) lactobacillus combination no.4 3 3,000 mmu cells PO QDAY 06/26/24 0 08/27/24 History billion cell capsule (Probiotic) magnesium 200 mg tablet 200 mg PO QDAY 06/26/24 08/27/24 H istory vitamin B complex (B-Complex 1 tab PO QDAY 06/26/24 08/27/24 Hi story tablet) promethazine 12.5 mg tablet 12.5 mg PO Q6H PRN nausea and 07/1408/27/24 Rx vomiting #60 tabs Last Menstrual Period: 04/22/24 Zika: Zika virus screening: Negative : No PFSH PFSH Surgical History S/P nasal surgery S/P wisdom tooth extraction S/P D C (status post dilation and curettage) Family History Grandmother Breast cancer maternal Grandfather Cancer Skin Aunt Cancer Skin Grandmother Heart disease Myocardial infarction Grandfather Kidney failure Father Pre-diabetes Social History adopted: No household members: spouse and children number of children: 1 current occupation: [employer] current occupational exposures/hazards: No pets and animals: No history of recent travel: No sexually active: Yes Smoking Status: Never smoker alcohol intake: current alcohol intake frequency: holidays/special occasions only details: Not while substance use type: does not use well-balanced diet: daily or most days caffeine: Yes Type: coffee eating out: rarely or never during the past year weight has: remained stable what type of physical activity do you participate in: walking and weight training frequency: 5-6 times per week duration: 30-45 minutes/day feliciano/baptist: Scientologist seatbelt use: always do you feel safe at home: Yes additional social history: : 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 Date Name GA/Weeks Outcome Route Bth Weight Gen Labor Lgth Anesthesia Del Locatn Provider FOB 12/09/22 Ines 41 live - full term 7lbs 6oz Female 12 hours epi dural Andie Rigo Roberts Delivery Date: 12/09/22 Last Updated by: Rachel Peña RN Retained placenta - bleed x8wk pp, D C 8wk pp HPI 18 wk ob Details: CYDNEY BROWN is a 24 year old who presents for routine OB visit. OB Visit JANNET Calculator Estimated Delivery Date Method Current WG Current Estimate 01/27/25 LMP (Certain) 18w 1d Expected Delivery Route/Plan Labor Preferences- CB/BF classes: [] labor support person: [] labor intervention preferences: [] pain management options preferred: [] cut cord/dad catch: [] : [] PP control planned: [] discussed possible routes of delivery and associated risks: [] special requests: [] Specific Issue/Plans Covid status: [] Flu vaccine: [] Tdap vaccine: [] Rhogam: [] LARC form signed: [] Problem list reviewed and updated with the most current plan of care details and appropriate orders placed. Relevant counseling for the gestational age provided. Continue routine care and follow up unless otherwise noted in visit notes/problem list details Initial Weight: 189 lb Date -???-???-???-???-???- ???-???-???-???-???-? ??-???- EGA Weight BP Urine Prot -???-???-???-???-???- ???-???-???-???-???-? ??-???- Glucose FHR FuHt Pres Dilation -???-???-???-???-???- ???-???-???-???-???-? ??-???- Effaced St Visit Note 07/02/24 -???-???-???-???-???- ???-???-???-???-???-? ??-???- 10w 1d 189 lb (+0 oz) 112/76 -???-???-???-???-???- ???-???-???-???-???-? ??-???- 176 -???-???-???-???-???- ???-???-???-???-???-? ??-???- JV- CRL puma ures 10 weeks (more content not included)... Normal [facility] - Chemistry and C hemistry - challengeOrdered By: Gonzalez Dunne on 07-30-2024 Glucose Ql (U) Negative [facility] - UrinalysisOrder ed By: Gonzalez Dunne on 07-30-2024 Protein Ql (U) Negative [facility] Physical Chemistry Teacher Office Visit Reporton 07-30-2024 Physical Chemistry Teacher Office Visit Report [facility] [address], [address] [place] [address] OFFICE VISIT Date of Service: 07/30/24 MR#: [id number] Acct: [id number] Name: CYDNEY BROWN Rep #: [id number] : 2000 Provider: HARJIT Castañeda ams Age/Sex: 24/F [place] [facility] [place]: Signed Intake Vital Signs 05/21/24 11:39 07/21/24 18:34 07/30/24 13:15 Height 5 ft 6 in 5 ft 6 in 5 ft 6 in Weight: 192 lb 4 oz BMI 31.0 BP 124/77 H Intake Visit Reasons: 14wk OB Chief Complaint: 14 wk OB Is patient in pain?: No Allergies No Known Allergies Allergy (Verified 07/30/24 13:13) Medications ???Medication ???Instructions ???Recorded ???Confirmed ???Type albuterol sulfate 90 mcg/actuation 2 puff inhalation Q6H PRN 07/30/24 History aerosol inhaler docosahexaenoic acid 200 mg mg PO 06/26/24 07/30/24 History capsule ( DHA) lactobacillus combination no.4 3 3,000 mmu cells PO QDAY 06/26/24 0 07/30/24 History billion cell capsule (Probiotic) magnesium 200 mg tablet 200 mg PO QDAY 06/26/24 07/30/24 H istory vitamin B complex (B-Complex 1 tab PO QDAY 06/26/24 07/30/24 Hi story tablet) promethazine 12.5 mg tablet 12.5 mg PO Q6H PRN nausea and 07/1407/30/24 Rx vomiting #60 tabs Last Menstrual Period: 04/22/24 : No PFSH PFSH Surgical History S/P nasal surgery S/P wisdom tooth extraction S/P D C (status post dilation and curettage) Family History Grandmother Breast cancer maternal Grandfather Cancer Skin Aunt Cancer Skin Grandmother Heart disease Myocardial infarction Grandfather Kidney failure Father Pre-diabetes Social History adopted: No household members: spouse and children number of children: 1 current occupation: [employer] current occupational exposures/hazards: No pets and animals: No history of recent travel: No sexually active: Yes Smoking Status: Never smoker alcohol intake: current alcohol intake frequency: holidays/special occasions only details: Not while substance use type: does not use well-balanced diet: daily or most days caffeine: Yes Type: coffee eating out: rarely or never during the past year weight has: remained stable what type of physical activity do you participate in: walking and weight training frequency: 5-6 times per week duration: 30-45 minutes/day feliciano/baptist: Scientologist seatbelt use: always do you feel safe at home: Yes additional social history: : 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 Date Name GA/Weeks Outcome Route Bth Weight Infant Gen Labor Lgth Anesthesia Del Locatn Provider FOB 12/09/22 Ines 41 live - full term 7lbs 6oz Female 12 hours epi dural Andie Rigo Vincent Artemio Fabrizio Delivery Date: 12/09/22 Last Updated by: Rachel Peña RN Retained placenta - bleed x8wk pp, D C 8wk pp HPI 14wk OB Details: CYDNEY BROWN is a 24 year old who presents for routine OB visit. OB Visit JANNET Calculator Estimated Delivery Date Method Current WG Current Estimate 01/27/25 LMP (Certain) 14w 1d Expected Delivery Route/Plan Labor Preferences- CB/BF classes: [] labor support person: [] labor intervention preferences: [] pain management options preferred: [] cut cord/dad catch: [] : [] PP control planned: [] discussed possible routes of delivery and associated risks: [] special requests: [] Specific Issue/Plans Covid status: [] Flu vaccine: [] Tdap vaccine: [] Rhogam: [] LARC form signed: [] Problem list reviewed and updated with the most current plan of care details and appropriate orders placed. Relevant counseling for the gestational age provided. Continue routine care and follow up unless otherwise noted in visit notes/problem list details Initial Weight: 189 lb Date -???-???-???-???-???- ???-???-???-???-???-? ??-???- EGA Weight BP Urine Prot -???-???-???-???-???- ???-???-???-???-???-? ??-???- Glucose FHR FuHt Pres Dilation -???-???-???-???-???- ???-???-???-???-???-? ??-???- Effaced St Visit Note 07/02/24 -???-???-???-???-???- ???-???-???-???-???-? ??-???- 10w 1d 189 lb (+0 oz) 112/76 -???-???-???-???-???- ???-???-???-???-???-? ??-???- 176 -???-???-???-???-???- ???-???-???-???-???-? ??-???- JV- CRL puma ures 10 weeks 6 days but still not off by more than 7 days. JANNET is per LMP 01/27/25. Desires nipt (more content not included)... Normal [facility] 12 Lead EKGon 07-21-2024 12 Lead EKG [facility] [address] [place] [address] 12 Lead EKG 07/21/24 1841 MR#: [id number] Acct: [id number] Name: CYDNEY BROWN Rep #: [id number] : 2000 24 From: Wei Schroeder MD Attending Dr: Status: DEP ER Ordering Dr: Aashish Thomas MD Date: 07/21/24 Location: ED Sex: F C Admitted: Test Reason : DYSRHYTHMIA Blood Pressure : */* mmHG Vent. Rate : 113 BPM Atrial Rate : 113 BPM P-R Int : 132 ms QRS Dur : 84 ms QT Int : 326 ms P-R-T Axes : 37 33 39 degrees QTcB Int : 447 ms Sinus tachycardia Otherwise normal ECG Confirmed by WEI SCHROEDER MD ([id number]), newspaper editor SANDIE IRVING ([id number]) on 07/23/2024 6:33:14 AM Referred By: AR Confirmed By: WEI SCHROEDER MD 07/23/24 0633 Date Wei Schroeder MD CC: CONCESSION ATTENDANT-Sudeep Perea; Dr. Aashish Thomas MD Signed Normal [facility] Absolute lymphocyte countOrd ered By: Aashish Thomas on 07-21-2024 Lymphocytes Auto (Unsp spec) [#/Vol] 0.48 10*3/uL Low 0.83-4.51 [facility] Absolute neutrophil countOrd ered By: Aashish Thomas on 07-21-2024 Neutrophils (Bld) [#/Vol] 8.9 10*3/uL High 2.0-7.7 [facility] Albumin to globulin ratioOrd ered By: Aashish Thomas on 07-21-2024 Albumin/Globulin [Mass ratio] 0.8 {ratio} Low 0.9-2.4 [facility] Automated lymphocyte count a s percentage of total leukocytesOrdered By: Aashish Thomas on 07-21-2024 Lymphocytes/100 WBC Auto (Unsp spec) 4.8 % Low 19-41 [facility] Basophil percentageOrdered B y: Aashish Thomas on 07-21-2024 Basophils/100 WBC (Bld) 0.1 % 0-1 [facility] Bilirubin Test strip Ql (U)O rdered By: Aashish Thomas on 07-21-2024 Bilirubin Ql (U) Negative Negative [facility] Bilirubin, totalOrdered By: Aashish Thomas on 07-21-2024 Bilirubin [Mass/Vol] 0.10 mg/dL Low 0.20-1.00 [facility] Comment on above: For patients on eltr ombopag therapy, use of Dimension [place] TBIL is not recommended. Blood urea nitrogen (BUN)/cr eatinine ratioOrdered By: Aashish Thomas on 07-21-2024 Urea nitrogen/Creatinine [Mass ratio] 10.0 mg/mg 10-20 [facility] CBC W/Diff, Automatedon Absolute Lymph 0.48 X10 3/uL Low 0.83-4.51 [facility] Comment on above: Performed By: #### L 500.4050, L100.0100 ####[facility] [address] [place], [address] Absolute Neut 8.9 X10 3/uL High 2.0-7.7 [facility] Comment on above: Performed By: #### L 500.4050, L100.0100 ####[facility] [address] [place], [address] Basophils/100 WBC (Bld) 0.1 % Normal 0-1 [facility] Comment on above: Performed By: #### L 500.4050, L100.0100 ####[facility] [address] [place], [address] Eosinophils/100 WBC (Bld) 0.1 % Normal 0-5 [facility] Comment on above: Performed By: #### L 500.4050, L100.0100 ####[facility] [address] [place], [address] Erythrocyte distribution width (RBC) [Ratio] 13.0 % Normal 11.6-14.6 [facility] Comment on above: Performed By: #### L 500.4050, L100.0100 ####[facility] [address] [place], [address] Hematocrit (Bld) [Volume fraction] 40.1 % Normal 37-47 [facility] Comment on above: Performed By: #### L 500.4050, L100.0100 ####[facility] [address] [place], [address] Hemoglobin (Bld) [Mass/Vol] 13.1 g/dL Normal 12.0-15.0 [facility] Comment on above: Performed By: #### L 500.4050, L100.0100 ####[facility] [address] [place], [address] IG% 0.400 Normal 0.0-0.9 [facility] Comment on above: Result Comment: IG% - Immature Granulocytes (promyelocytes, myelocytes and metamyelocytes) > 1% indicates that a LEFT SHIFT is Present. Performed By: #### L 500.4050, L100.0100 ####[facility] [address] [place], [address] Lymphocytes/100 WBC (Bld) 4.8 % Low 19-41 [facility] Comment on above: Performed By: #### L 500.4050, L100.0100 ####[facility] [address] [place], [address] MCH (RBC) [Entitic mass] 29.1 pg Normal 27.0-32.0 [facility] Comment on above: Performed By: #### L 500.4050, L100.0100 ####[facility] [address] [place], [address] MCHC (RBC) [Mass/Vol] 32.7 g/dL Normal 32-36 [facility] Comment on above: Performed By: #### L 500.4050, L100.0100 ####[facility] [address] [place], [address] MCV (RBC) [Entitic vol] 89.1 fL Normal 81-99 [facility] Comment on above: Performed By: #### L 500.4050, L100.0100 ####[facility] [address] [place], [address] Monocytes/100 WBC (Bld) 5.2 % Normal 0-10 [facility] Comment on above: Performed By: #### L 500.4050, L100.0100 ####[facility] [address] [place], [address] Neutrophils/100 WBC (Bld) 89.4 % High 47-70 [facility] Comment on above: Performed By: #### L 500.4050, L100.0100 ####[facility] [address] [place], [address] Nucleated RBC (Bld) [#/Vol] 0 10*3/uL Normal 0-5 [facility] Comment on above: Performed By: #### L 500.4050, L100.0100 ####[facility] [address] [place], [address] Platelet mean volume (Bld) [Entitic vol] 8.6 fL Normal 6.2-12.0 [facility] Comment on above: Performed By: #### L 500.4050, L100.0100 ####[facility] [address] [place], [address] Platelets (Bld) [#/Vol] 307 10*3/uL Normal 150-450 [facility] Comment on above: Performed By: #### L 500.4050, L100.0100 ####[facility] [address] [place], [address] RBC (Bld) [#/Vol] 4.50 10*6/uL Normal 4.2-5.4 [facility] Comment on above: Performed By: #### L 500.4050, L100.0100 ####[facility] [address] [place], [address] RDW SD 42.7 fl Normal 35.1-43.9 [facility] Comment on above: Performed By: #### L 500.4050, L100.0100 ####[facility] [address] [place], [address] WBC (Bld) [#/Vol] 10.0 10*3/uL Normal 4.4-11.0 [facility] Comment on above: Performed By: #### L 500.4050, L100.0100 ####[facility] [address] [place], [address] Carbon dioxide measurementOr dered By: Aashish Thomas on 07-21-2024 CO2 [Moles/Vol] 24.0 mmol/L 21.0-32.0 [facility] Chloride measurementOrdered By: Aashish Thomas on 07-21-2024 Chloride [Moles/Vol] 107 mmol/L 98-107 [facility] Comprehensive Metabolic Prof ilon 07-21-2024 Albumin [Mass/Vol] 3.1 g/dL Low 3.2-5.0 [facility] Comment on above: Performed By: #### L 500.4050, L100.0100 ####[facility] [address] [place], [address] Albumin/Globulin [Mass ratio] 0.8 {ratio} Low 0.9-2.4 [facility] Comment on above: Performed By: #### L 500.4050, L100.0100 ####[facility] [address] [place], [address] ALK P 91 U/L Normal 45-117 [facility] Comment on above: Performed By: #### L 500.4050, L100.0100 ####[facility] [address] [place], [address] ALT [Catalytic activity/Vol] 38 U/L Normal 13-56 [facility] Comment on above: Performed By: #### L 500.4050, L100.0100 ####[facility] [address] [place], [address] AST [Catalytic activity/Vol] 31 U/L Normal 15-37 [facility] Comment on above: Performed By: #### L 500.4050, L100.0100 ####[facility] [address] [place], [address] Bilirubin [Mass/Vol] 0.10 mg/dL Low 0.20-1.00 [facility] Comment on above: Result Comment: For patients on eltrombopag therapy, use of Dimension [place] TBIL is not recommended. Performed By: #### L 500.4050, L100.0100 ####[facility] [address] [place], [address] BUN/CRE 10.0 RATIO Normal 10-20 [facility] Comment on above: Performed By: #### L 500.4050, L100.0100 ####[facility] [address] [place], [address] CA,Total 8.7 mg/dL Normal 8.5-10.1 [facility] Comment on above: Performed By: #### L 500.4050, L100.0100 ####[facility] [address] [place], [address] Chloride [Moles/Vol] 107 mmol/L Normal 98-107 [facility] Comment on above: Performed By: #### L 500.4050, L100.0100 ####[facility] [address] [place], [address] CO2 [Moles/Vol] 24.0 mmol/L Normal 21.0-32.0 [facility] Comment on above: Performed By: #### L 500.4050, L100.0100 ####[facility] [address] [place], [address] Creatinine [Mass/Vol] 0.60 mg/dL Normal 0.55-1.02 [facility] Comment on above: Result Comment: The validity of the calculated GFR GFRAA in patients over 70 years has not been determined. Clinical correlation is essential. Performed By: #### L 500.4050, L100.0100 ####[facility] [address] [place], [address] ECRCL 163.86 ml/min Normal [facility] Comment on above: Performed By: #### L 500.4050, L100.0100 ####[facility] [address] [place], [address] EST GFR - AA 159 mL/min Normal >60 [facility] Comment on above: Result Comment: Afri can Haitian GFR Calc Performed By: #### L 500.4050, L100.0100 ####[facility] [address] [place], [address] GAP 7 Normal 5-15 [facility] Comment on above: Performed By: #### L 500.4050, L100.0100 ####[facility] [address] [place], [place], [address] GFR/1.73 sq M.predicted among non-blacks MDRD (S/P/Bld) [Vol rate/Area] 132 mL/min/{1.73_m2} Normal >60 [facility] Comment on above: Result Comment: Non- GFR Calc Performed By: #### L 500.4050, L100.0100 ####[facility] [address] [place], [address] Globulin (S) [Mass/Vol] 3.8 g/dL Normal 2.2-4.2 [facility] Comment on above: Performed By: #### L 500.4050, L100.0100 ####[facility] [address] [place], [address] Glucose [Mass/Vol] 90 mg/dL Normal 74-106 [facility] Comment on above: Performed By: #### L 500.4050, L100.0100 ####[facility] [address] [place], [address] Potassium [Moles/Vol] 3.3 mmol/L Low 3.5-5.1 [facility] Comment on above: Performed By: #### L 500.4050, L100.0100 ####[facility] [address] [place], [address] Sodium [Moles/Vol] 138 mmol/L Normal 136-145 [facility] Comment on above: Performed By: #### L 500.4050, L100.0100 ####[facility] [address] [place], [address] T PROT 6.9 g/dL Normal 6.4-8.2 [facility] Comment on above: Performed By: #### L 500.4050, L100.0100 ####[facility] [address] [place], [address] Urea nitrogen [Mass/Vol] 6 mg/dL Low 7-18 [facility] Comment on above: Performed By: #### L 500.4050, L100.0100 ####[facility] [address] [place], [address] Emergency Department Summary on 07-21-2024 Emergency Department Summary [facility] Medical Records Department [address] [place] [address] Emergency Department Summary 07/21/24 MR#: [id number] Acct: [id number] Name: CYDNEY BROWN Rep #: [id number] : 2000 24 From: Aashish Thomas MD PCP: NOEMÍ Alvarez Status:REG ER Location: ED HPI History of Present Illness Chief Complaint: Palpitations Narrative Narrative: 24-year-old female, G2, P1 sees [facility] MERCURY WASHER's presents with heart palpitations and rapid heart rate that began this afternoon. She relays history that she had a stressful event today, and has been slightly agitated. She noticed her heart rate was in the 140s. When she went to make dinner, after trying to calm herself down, her heart rate remained 110. She denies any vaginal bleeding or any problems with her . No chest pain or shortness of breath. It was suggested by her MERCURY WASHER that she present to the emergency department for evaluation of her rapid heart rate. Of note, she has chronic nausea associated with this for which she takes promethazine. She denies any recent diarrhea, or vomiting. No fevers or chills. PFSH PFSH Home Medications ???Medication ???Instructions ???Recorded ???Last Taken ???Type albuterol sulfate 90 mcg/actuation 2 puff inhalation Q6H PRN Unknown History aerosol inhaler promethazine 12.5 mg tablet 12.5 mg PO Q6H PRN nausea and 02/04 Unknown Rx vomiting #60 tabs docosahexaenoic acid 200 mg mg PO 06/26/24 Unknown History capsule ( DHA) lactobacillus combination no.4 3 3,000 mmu cells PO QDAY 06/26/24 U nknown History billion cell capsule (Probiotic) magnesium 200 mg tablet 200 mg PO QDAY 06/26/24 Unknown Hi story vitamin B complex (B-Complex 1 tab PO QDAY 06/26/24 Unknown His tory tablet) Allergy/AdvReac Type Severity Reaction Status Date / Time No Known Allergies Allergy Verified 07/21/24 18:48 Family History Grandmother Breast cancer maternal Grandfather Cancer Skin Aunt Cancer Skin Grandmother Heart disease Myocardial infarction Grandfather Kidney failure Father Pre-diabetes Surgical History S/P nasal surgery S/P wisdom tooth extraction S/P D C (status post dilation and curettage) Social History adopted: No household members: spouse and children number of children: 1 current occupation: [employer] current occupational exposures/hazards: No pets and animals: No history of recent travel: No sexually active: Yes Smoking Status: Never smoker alcohol intake: current alcohol intake frequency: holidays/special occasions only details: Not while substance use type: does not use well-balanced diet: daily or most days caffeine: Yes Type: coffee eating out: rarely or never during the past year weight has: remained stable what type of physical activity do you participate in: walking and weight training frequency: 5-6 times per week duration: 30-45 minutes/day feliciano/baptist: Scientologist seatbelt use: always do you feel safe at home: Yes additional social history: : Fabrizio- [employer] Supervisor @ [employer] ROS ED ROS Narrative Constitutional: No fever, no chills. HEENT: No sore throat. No neck pain. No rhinorrhea. Cardiovascular: No chest pain. Positive palpitations and rapid heart rate.. No pedal edema. Respiratory: No cough, no shortness of breath. Abdominal: No abdominal pain. Positive nausea. No vomiting. Genitourinary: No dysuria. No hematuria. No vaginal bleeding. Musculoskeletal: No myalgias. No arthralgias. Neurologic: No headaches. No dizziness. No lightheadedness. Skin: No rash. No change in color. Psychiatric: No depression. Mild stress and anxiety. EXAM Physical Exam Narrative Exam Narrative: Afebrile. Vital signs noted. HEENT: Normocephalic. Atraumatic. PERRL, EOMI. Neck soft and supple. No point tenderness or step off. Cardiovascular: Regular rhythm, positive tachycardia no murmurs, rubs, or gallops appreciated. Respiratory: No tachypnea. Lungs clear to auscultation bilaterally. Gastrointestinal: Abdomen soft, nontender, with normoactive bowel sounds. No rebound or guarding. Neurological: Awake. Alert. Nonfocal, nonlateralizing. Skin: No rash. Normal color. No pallor. Musculoskeletal: No pedal edema. Full range of motion extremities. Const Vital Signs: 07/21/24 18:34 07/21/24 18:48 07/21/24 20:33 Temperature 96.1 F L Temperature Source Temporal Pulse Rate 121 H 104 H Respiratory Rate 20 H 19 H Respiratory Effort Normal Blood Pressure 127/77 H 115/69 Blood Pressure Mean 93 84 Pulse Ox 100 100 Oxygen Delivery Method Room Air MDM MDM (more content not included)... Normal [facility] Eosinophil percentageOrdered By: Aashish Thomas on 07-21-2024 Eosinophils/100 WBC (Bld) 0.1 % 0-5 [facility] Erythrocyte distribution wid th ratioOrdered By: Aashish Thomas on 07-21-2024 Erythrocyte distribution width (RBC) [Ratio] 13.0 % 11.6-14.6 [facility] Erythrocyte distribution wid th standard deviationOrdered By: Aashish Thomas on 07-21-2024 Erythrocyte distribution width (RBC) [Ratio] 42.7 fl 35.1-43.9 [facility] Glomerular filtration rate ( GFR) estimationOrdered By: Aashish Thomas on 07-21-2024 GFR/1.73 sq M.predicted among non-blacks MDRD (S/P/Bld) [Vol rate/Area] 132 mL/min/{1.73_m2} >60 [facility] Comment on above: Non- GFR Calc Glucose measurementOrdered B y: Aashish Thomas on 07-21-2024 Glucose [Mass/Vol] 90 mg/dL 74-106 [facility] Hematocrit Auto (Bld) [Volum e fraction]Ordered By: Aashish Thomas on 07-21-2024 Hematocrit (Bld) [Volume fraction] 40.1 % 37-47 [facility] Hemoglobin measurementOrdere d By: Aashish Thomas on 07-21-2024 Hemoglobin (Bld) [Mass/Vol] 13.1 g/dL 12.0-15.0 [facility] Immature granulocytes/100 WB C Auto (Bld)Ordered By: Aashish Thomas on 07-21-2024 Immature granulocytes/100 WBC (Bld) 0.400 % 0.0-0.9 [facility] Comment on above: IG% - Immature Granu locytes (promyelocytes, myelocytes and metamyelocytes) > 1% indicates that a LEFT SHIFT is Present. Ketones Test strip Ql (U)Ord ered By: Aashish Thomas on 07-21-2024 Ketones Ql (U) Negative Negative [facility] Laboratory - Chemistry and C hemistry - challengeOrdered By: Aashish Thomas on 07-21-2024 AST [Catalytic activity/Vol] 31 U/L 15-37 [facility] MCV (mean corpuscular volume ) determinationOrdered By: Aashish Thomas on 07-21-2024 MCV (RBC) [Entitic vol] 89.1 fL 81-99 [facility] Mean corpuscular hemoglobin (MCH) determinationOrdered By: Aashish Thomas on 07-21-2024 MCH (RBC) [Entitic mass] 29.1 pg 27.0-32.0 [facility] Mean corpuscular hemoglobin concentration (MCHC) determinationOrdered By: Aashish Thomas on 07-21-2024 MCHC (RBC) [Mass/Vol] 32.7 g/dL 32-36 [facility] Mean platelet volume determi nationOrdered By: Aashish Thomas on 07-21-2024 Platelet mean volume (Bld) [Entitic vol] 8.6 fL 6.2-12.0 [facility] Microscopic analysis of urin e for red blood cells (RBC)Ordered By: Aashish Thomas on 07-21-2024 Microscopic analysis of urine for red blood cells (RBC) 0-5 SEEN /hpf 0-5 [facility] Monocyte percentageOrdered B y: Aashish Thomas on 07-21-2024 Monocytes/100 WBC (Bld) 5.2 % 0-10 [facility] Mucus LM Ql (Urine sed)Order ed By: Aashish Thomas on 07-21-2024 Mucus Ql (Urine sed) 0 SEEN /hpf [facility] Neutrophil percentageOrdered By: Aashish Thomas on 07-21-2024 Neutrophils/100 WBC (Bld) 89.4 % High 47-70 [facility] Nitrite Test strip Ql (U)Ord ered By: Aashish Thomas on 07-21-2024 Nitrite Ql (U) Negative Negative [facility] Nucleated red blood cell per centageOrdered By: Aashish Thomas on 07-21-2024 Nucleated RBC/100 WBC (Bld) [Ratio] 0 % 0-5 [facility] Platelet countOrdered By: Malick Thomas on 07-21-2024 Platelets (Bld) [#/Vol] 307 10*3/uL 150-450 [facility] Potassium measurementOrdered By: Aashish Thomas on 07-21-2024 Potassium [Moles/Vol] 3.3 mmol/L Low 3.5-5.1 [facility] Protein Test strip Ql (U)Ord ered By: Aashish Thomas on 07-21-2024 Protein Ql (U) Negative Negative [facility] RBC Auto (Bld) [#/Vol]Ordere d By: Aashish Thomas on 07-21-2024 RBC (Bld) [#/Vol] 4.50 10*6/uL 4.2-5.4 [facility] Serum anion gap measurementO rdered By: Aashish Thomas on 07-21-2024 Anion gap [Moles/Vol] 7 mmol/L 5-15 [facility] Serum globulin measurementOr dered By: Aashish Thomas on 07-21-2024 Globulin (S) [Mass/Vol] 3.8 g/dL 2.2-4.2 [facility] Serum or plasma alanine noland otransferase (ALT) measurementOrdered By: Aashish Thomas on 07-21-2024 ALT [Catalytic activity/Vol] 38 U/L 13-56 [facility] Serum or plasma albumin puma urement (mass/volume)Ordered By: Aashish Thomas on 07-21-2024 Albumin [Mass/Vol] 3.1 g/dL Low 3.2-5.0 [facility] Serum or plasma alkaline coby sphatase measurementOrdered By: Aashish Thomas on 07-21-2024 ALP [Catalytic activity/Vol] 91 U/L 45-117 [facility] Serum or plasma calcium puma urement (mass/volume)Ordered By: Aashish Thomas on 07-21-2024 Calcium [Mass/Vol] 8.7 mg/dL 8.5-10.1 [facility] Serum or plasma creatinine m easurement (mass/volume)Ordered By: Aashish Thomas on 07-21-2024 Creatinine [Mass/Vol] 0.60 mg/dL 0.55-1.02 [facility] Comment on above: The validity of the calculated GFR & GFRAA in patients over 70 years has not been determined. Clinical correlation is essential. Serum or plasma urea nitroge n measurement (mass/volume)Ordered By: Aashish Thomas on 07-21-2024 Urea nitrogen [Mass/Vol] 6 mg/dL Low 7-18 [facility] Sodium levelOrdered By: Aashish Thomas on 07-21-2024 Sodium [Moles/Vol] 138 mmol/L 136-145 [facility] Squamous epithelial cells de tection in urine sediment by light microscopyOrdered By: Aashish Thomas on 07-21-2024 Epithelial cells.squamous LM Ql (Urine sed) 0 SEEN /hpf 5-10 [facility] Total proteinOrdered By: Tanesha Thomas on 07-21-2024 Protein [Mass/Vol] 6.9 g/dL 6.4-8.2 [facility] Urinalysis, Completeon 07-21 RBC 0-5 SEEN Normal 0-5 [facility] Comment on above: Order Comment: CLEAN CATCH Performed By: #### L 400.0001 #### [facility] [address] [place], [address] BACTERIA 0 SEEN Normal None Seen [facility] Comment on above: Order Comment: CLEAN CATCH Performed By: #### L 400.0001 #### [facility] [address] [place], [address] EPI,SQUAMOUS 0 SEEN Normal 5-10 [facility] Comment on above: Order Comment: CLEAN CATCH Performed By: #### L 400.0001 #### [facility] [address] [place], [address] Mucus Ql (Urine sed) 0 SEEN Normal [facility] Comment on above: Order Comment: CLEAN CATCH Performed By: #### L 400.0001 #### [facility] [address] [place], [address] WBC 0 SEEN Normal 0-5 [facility] Comment on above: Order Comment: CLEAN CATCH Performed By: #### L 400.0001 #### [facility] [address] [place], [address] Urine clarityOrdered By: Tanesha Thomas on 07-21-2024 Clarity (U) Sl. Cloudy Clear [facility] Urine color determinationOrd ered By: Aashish Thomas on 07-21-2024 Color (U) Yellow Yellow [facility] Urine glucose detectionOrder ed By: Aashish Thomas on 07-21-2024 Glucose Ql (U) Normal mg/dl Normal [facility] Urine leukocyte esterase det ection by dipstickOrdered By: Aashish Thomas on 07-21-2024 Leukocyte esterase Test strip Ql (U) Negative Negative [facility] Urine pHOrdered By: Aashish wagner on 07-21-2024 pH (U) 7.0 [pH] 5.0 - 8.0 [facility] Urine sediment bacteria coun t by microscopy (number/high power field)Ordered By: Aashish Thomas on 07-21-2024 Bacteria LM.HPF (Urine sed) [#/Area] 0 /[HPF] None Seen [facility] Urine specific gravity measu rementOrdered By: Aashish Thomas on 07-21-2024 Specific gravity (U) [Rel density] 1.005 1.002-1.030 [facility] Urine urobilinogen measureme ntOrdered By: Aashish Thomas on 07-21-2024 Urobilinogen Ql (U) Normal mg/dl Normal [facility] White blood cell (WBC) count Ordered By: Aashish Thomas on 07-21-2024 WBC (Bld) [#/Vol] 10.0 10*3/uL 4.4-11.0 [facility] White blood cell countOrdere d By: Aashish Thomas on 07-21-2024 White blood cell count 0 SEEN /hpf 0-5 [facility] PAP I-G w/rfx hrHPV-Aptimaon 07-09-2024 ADEQ Comment Normal . [facility] Comment on above: Order Comment: Speci men Comment: [id number] Comment: Source.............CervixSpecimen Comment: Other..............Specimen Comment: No. of containers..01 ThinPrep Vial Result Comment: Sati sfactory for evaluation. No endocervical component is identified. An endocervical component is not commonly seen in the patient. Performed By: #### L 7000.1800, L509.8000, L3890.6005, L100.0100, BTS, L7400.0353, L900.0098, L501.9985, L509.4005, L3890.6300, L3890.6100 ####[facility] [address], [place], [id number] COMM . Normal . [facility] Comment on above: Order Comment: Speci men Comment: [id number] Comment: Source.............CervixSpecimen Comment: Other..............Specimen Comment: No. of containers..01 ThinPrep Vial Performed By: #### L 7000.1800, L509.8000, L3890.6005, L100.0100, BTS, L7400.0353, L900.0098, L501.9985, L509.4005, L3890.6300, L3890.6100 ####[facility] [address] [place], [place], [id number] COMMENT Comment Normal . [facility] Comment on above: Order Comment: Speci men Comment: [id number] Comment: Source.............CervixSpecimen Comment: Other..............Specimen Comment: No. of containers..01 ThinPrep Vial Result Comment: This liquid based ThinPrep(R) pap test was screened with the use of an image guided system. Performed By: #### L 7000.1800, L509.8000, L3890.6005, L100.0100, BTS, L7400.0353, L900.0098, L501.9985, L509.4005, L3890.6300, L3890.6100 ####[facility] [address] [place], [address] DIAG Comment Normal . [facility] Comment on above: Order Comment: Speci men Comment: [id number] Comment: Source.............CervixSpecimen Comment: Other..............Specimen Comment: No. of containers..01 ThinPrep Vial Result Comment: NEGA TIVE FOR INTRAEPITHELIAL LESION OR MALIGNANCY. THIS SPECIMEN WAS RESCREENED PART OF OUR [employer] JOURNA[employer] PROGRAM. Performed By: #### L 7000.1800, L509.8000, L3890.6005, L100.0100, BTS, L7400.0353, L900.0098, L501.9985, L509.4005, L3890.6300, L3890.6100 ####[facility] [address] [place], [place], [id number] HPV RFLX Comment Normal . [facility] Comment on above: Order Comment: Speci men Comment: [id number] Comment: Source.............CervixSpecimen Comment: Other..............Specimen Comment: No. of containers..01 ThinPrep Vial Result Comment: The HPV DNA reflex criteria were not met with this specimen result therefore, no HPV testing was performed. Performed at: [address] [id number] Pile Driving Technician: Em Ramirez MD, Phone: [phone] Performed By: #### L 7000.1800, L509.8000, L3890.6005, L100.0100, BTS, L7400.0353, L900.0098, L501.9985, L509.4005, L3890.6300, L3890.6100 ####[facility] [address] [place], [place], [id number] PAPSMR Comment Normal . [facility] Comment on above: Order Comment: Speci men Comment: [id number] Comment: Source.............CervixSpecimen Comment: Other..............Specimen Comment: No. of containers..01 ThinPrep Vial Result Comment: The Pap smear is a screening test designed to aid in the detection of premalignant and malignant conditions of the uterine cervix. It is not a diagnostic procedure and should not be used as the sole means of detecting cervical cancer. Both false-positive and false-negative reports do occur. Performed By: #### L 7000.1800, L509.8000, L3890.6005, L100.0100, BTS, L7400.0353, L900.0098, L501.9985, L509.4005, L3890.6300, L3890.6100 ####[facility] [address] [place], [place], [phone] PERFORM Comment Normal . [facility] Comment on above: Order Comment: Speci men Comment: [id number] Comment: Source.............CervixSpecimen Comment: Other..............Specimen Comment: No. of containers..01 ThinPrep Vial Result Comment: Freddie Cassidy Field Observer (ASCP) Performed By: #### L 7000.1800, L509.8000, L3890.6005, L100.0100, BTS, L7400.0353, L900.0098, L501.9985, L509.4005, L3890.6300, L3890.6100 ####[facility] [address] [place], [place], [id number] QC REV Comment Normal . [facility] Comment on above: Order Comment: Speci men Comment: [id number] Comment: Source.............CervixSpecimen Comment: Other..............Specimen Comment: No. of containers..01 ThinPrep Vial Result Comment: Jada Roa, Field Observer (ASCP) Performed By: #### L 7000.1800, L509.8000, L3890.6005, L100.0100, BTS, L7400.0353, L900.0098, L501.9985, L509.4005, L3890.6300, L3890.6100 ####[facility] [address] [place], [address] Chlamydia/GC JOSE aptimaon CHLAMY,NUC ACID Negative Normal Negative [facility] Comment on above: Performed By: #### L 7000.1800, L509.8000, L3890.6005, L100.0100, BTS, L7400.0353, L900.0098, L501.9985, L509.4005, L3890.6300, L3890.6100 ####[facility] [address] [place], [place], [phone] GC BY NUC ACID Negative Normal Negative [facility] Comment on above: Result Comment: Perf ormed at: =G - [facility] [address] [id number] Pile Driving Technician: Em Ramirez MD, Phone: [phone] Performed By: #### L 7000.1800, L509.8000, L3890.6005, L100.0100, BTS, L7400.0353, L900.0098, L501.9985, L509.4005, L3890.6300, L3890.6100 ####[facility] [address] [place], [place], [phone]) Urine Cultureon 01-21-2025 [facility] Culture exhibits no growth. Normal [facility] Comment on above: Performed By: #### M 100.2200 ####[facility] [address] [place], [address] Absolute lymphocyte countOrd ered By: Lashay Rosalinda on 07-02-2024 Lymphocytes Auto (Unsp spec) [#/Vol] 1.71 10*3/uL 0.83-4.51 [facility] Absolute neutrophil countOrd ered By: Lashay Rosalinda on 07-02-2024 Neutrophils (Bld) [#/Vol] 7.5 10*3/uL 2.0-7.7 [facility] Automated lymphocyte count a s percentage of total leukocytesOrdered By: Lashay Rosalinda on 07-02-2024 Lymphocytes/100 WBC Auto (Unsp spec) 17.3 % Low 19-41 [facility] Basophil percentageOrdered B y: Lashay Rosalinda on 07-02-2024 Basophils/100 WBC (Bld) 0.3 % 0-1 [facility] CBC W/Diff, Automatedon 06-14 Absolute Lymph 1.71 X10 3/uL Normal 0.83-4.51 [facility] Comment on above: Performed By: #### L 7000.1800, L509.8000, L3890.6005, L100.0100, BTS, L7400.0353, L900.0098, L501.9985, L509.4005, L3890.6300, L3890.6100 #### [facility] [address] [place], [address] Absolute Neut 7.5 X10 3/uL Normal 2.0-7.7 [facility] Comment on above: Performed By: #### L 7000.1800, L509.8000, L3890.6005, L100.0100, BTS, L7400.0353, L900.0098, L501.9985, L509.4005, L3890.6300, L3890.6100 #### [facility] [address] [place], [address] Basophils/100 WBC (Bld) 0.3 % Normal 0-1 [facility] Comment on above: Performed By: #### L 7000.1800, L509.8000, L3890.6005, L100.0100, BTS, L7400.0353, L900.0098, L501.9985, L509.4005, L3890.6300, L3890.6100 #### [facility] [address] [place], [address] Eosinophils/100 WBC (Bld) 0.3 % Normal 0-5 [facility] Comment on above: Performed By: #### L 7000.1800, L509.8000, L3890.6005, L100.0100, BTS, L7400.0353, L900.0098, L501.9985, L509.4005, L3890.6300, L3890.6100 #### [facility] [address] [place], [address] Erythrocyte distribution width (RBC) [Ratio] 13.1 % Normal 11.6-14.6 [facility] Comment on above: Performed By: #### L 7000.1800, L509.8000, L3890.6005, L100.0100, BTS, L7400.0353, L900.0098, L501.9985, L509.4005, L3890.6300, L3890.6100 #### [facility] [address] [place], [address] Hematocrit (Bld) [Volume fraction] 44.3 % Normal 37-47 [facility] Comment on above: Performed By: #### L 7000.1800, L509.8000, L3890.6005, L100.0100, BTS, L7400.0353, L900.0098, L501.9985, L509.4005, L3890.6300, L3890.6100 #### [facility] [address] [place], [address] Hemoglobin (Bld) [Mass/Vol] 14.1 g/dL Normal 12.0-15.0 [facility] Comment on above: Performed By: #### L 7000.1800, L509.8000, L3890.6005, L100.0100, BTS, L7400.0353, L900.0098, L501.9985, L509.4005, L3890.6300, L3890.6100 #### [facility] [address] [place], [address] IG% 0.300 Normal 0.0-0.9 [facility] Comment on above: Result Comment: IG% - Immature Granulocytes (promyelocytes, myelocytes and metamyelocytes) > 1% indicates that a LEFT SHIFT is Present. Performed By: #### L 7000.1800, L509.8000, L3890.6005, L100.0100, BTS, L7400.0353, L900.0098, L501.9985, L509.4005, L3890.6300, L3890.6100 #### [facility] [address] [place], [address] Lymphocytes/100 WBC (Bld) 17.3 % Low 19-41 [facility] Comment on above: Performed By: #### L 7000.1800, L509.8000, L3890.6005, L100.0100, BTS, L7400.0353, L900.0098, L501.9985, L509.4005, L3890.6300, L3890.6100 #### [facility] [address] [place], [address] MCH (RBC) [Entitic mass] 28.7 pg Normal 27.0-32.0 [facility] Comment on above: Performed By: #### L 7000.1800, L509.8000, L3890.6005, L100.0100, BTS, L7400.0353, L900.0098, L501.9985, L509.4005, L3890.6300, L3890.6100 #### [facility] [address] [place], [address] MCHC (RBC) [Mass/Vol] 31.8 g/dL Low 32-36 [facility] Comment on above: Performed By: #### L 7000.1800, L509.8000, L3890.6005, L100.0100, BTS, L7400.0353, L900.0098, L501.9985, L509.4005, L3890.6300, L3890.6100 #### [facility] [address] [place], [address] MCV (RBC) [Entitic vol] 90.0 fL Normal 81-99 [facility] Comment on above: Performed By: #### L 7000.1800, L509.8000, L3890.6005, L100.0100, BTS, L7400.0353, L900.0098, L501.9985, L509.4005, L3890.6300, L3890.6100 #### [facility] [address] [place], [address] Monocytes/100 WBC (Bld) 5.6 % Normal 0-10 [facility] Comment on above: Performed By: #### L 7000.1800, L509.8000, L3890.6005, L100.0100, BTS, L7400.0353, L900.0098, L501.9985, L509.4005, L3890.6300, L3890.6100 #### [facility] [address] [place], [address] Neutrophils/100 WBC (Bld) 76.2 % High 47-70 [facility] Comment on above: Performed By: #### L 7000.1800, L509.8000, L3890.6005, L100.0100, BTS, L7400.0353, L900.0098, L501.9985, L509.4005, L3890.6300, L3890.6100 #### [facility] [address] [place], [address] Nucleated RBC (Bld) [#/Vol] 0 10*3/uL Normal 0-5 [facility] Comment on above: Performed By: #### L 7000.1800, L509.8000, L3890.6005, L100.0100, BTS, L7400.0353, L900.0098, L501.9985, L509.4005, L3890.6300, L3890.6100 #### [facility] [address] [place], [place], [phone] (282) Platelet mean volume (Bld) [Entitic vol] 8.8 fL Normal 6.2-12.0 [facility] Comment on above: Performed By: #### L 7000.1800, L509.8000, L3890.6005, L100.0100, BTS, L7400.0353, L900.0098, L501.9985, L509.4005, L3890.6300, L3890.6100 #### [facility] [address] [place], [address] (551) Platelets (Bld) [#/Vol] 428 10*3/uL Normal 150-450 [facility] Comment on above: Performed By: #### L 7000.1800, L509.8000, L3890.6005, L100.0100, BTS, L7400.0353, L900.0098, L501.9985, L509.4005, L3890.6300, L3890.6100 #### [facility] [address] [place], [address] (841) RBC (Bld) [#/Vol] 4.92 10*6/uL Normal 4.2-5.4 [facility] Comment on above: Performed By: #### L 7000.1800, L509.8000, L3890.6005, L100.0100, BTS, L7400.0353, L900.0098, L501.9985, L509.4005, L3890.6300, L3890.6100 #### [facility] [address] [place], [address] RDW SD 42.9 fl Normal 35.1-43.9 [facility] Comment on above: Performed By: #### L 7000.1800, L509.8000, L3890.6005, L100.0100, BTS, L7400.0353, L900.0098, L501.9985, L509.4005, L3890.6300, L3890.6100 #### [facility] [address] [place], [address] (947) WBC (Bld) [#/Vol] 9.9 10*3/uL Normal 4.4-11.0 [facility] Comment on above: Performed By: #### L 7000.1800, L509.8000, L3890.6005, L100.0100, BTS, L7400.0353, L900.0098, L501.9985, L509.4005, L3890.6300, L3890.6100 #### [facility] [address] [place], [place], [id number] Cervical or vagninal specime n microscopic examination by cytology stain (reported asOrdered By: Lashay Tellez on 07-02-2024 Cytology report Cyto stain Doc (Cvx/Vag) Comment . [facility] Comment on above: The Pap smear is a s creening test designed to aid in thedetection of premalignant and malignant conditions of theuterine cervix. It is not a diagnostic procedure andshould not be used as the sole means of detecting cervicalcancer. Both false-positive and false-negative reports dooccur. Chlamydia trachomatis rRNA d etection by probe and target amplification methodOrdered By: Lashay Tellez on 07-02-2024 C. trachomatis rRNA JOSE+probe Ql (Unsp spec) Negative Negative [facility] Eosinophil percentageOrdered By: Lashay Tellez on 07-02-2024 Eosinophils/100 WBC (Bld) 0.3 % 0-5 [facility] Erythrocyte distribution wid th ratioOrdered By: Lashay Tellez on 07-02-2024 Erythrocyte distribution width (RBC) [Ratio] 13.1 % 11.6-14.6 [facility] Erythrocyte distribution wid th standard deviationOrdered By: Lashay Tellez on 07-02-2024 Erythrocyte distribution width (RBC) [Ratio] 42.9 fl 35.1-43.9 [facility] HIV - WCHon 07-02-2024 HIV Non-Reactive Normal Nonreactive [facility] Comment on above: Order Comment: Reaso n for Exam: Performed By: #### L 7000.1800, L509.8000, L3890.6005, L100.0100, BTS, L7400.0353, L900.0098, L501.9985, L509.4005, L3890.6300, L3890.6100 ####[facility] [address] [place], [place], [address] HIV 1 and HIV-2 antibody ass ay with HIV-1 p24 antigen detectionOrdered By: Lashay Tellez on 07-02-2024 HIV 1+2 Ab+HIV1 p24 Ag IA Ql Non-Reactive Nonreactive [facility] Hematocrit Auto (Bld) [Volum e fraction]Ordered By: Lashay Tellez on 07-02-2024 Hematocrit (Bld) [Volume fraction] 44.3 % 37-47 [facility] Hemoglobin A1con 07-02-2024 HbA1c (Bld) [Mass fraction] 5.2 % Normal 3.8-5.6 [facility] Comment on above: Result Comment: Norm al < 5.7 % Prediabetic 5.7 - 6.4 % Diabetic >or= 6.5 % Please note range changes. Performed By: #### L 7000.1800, L509.8000, L3890.6005, L100.0100, BTS, L7400.0353, L900.0098, L501.9985, L509.4005, L3890.6300, L3890.6100 ####[facility] [address] [place], [place], [phone] Hemoglobin A1c percentageOrd ered By: Lashay Tellez on 07-02-2024 HbA1c (Bld) [Mass fraction] 5.2 % 3.8-5.6 [facility] Comment on above: Normal < 5.7 % Predi abetic 5.7 - 6.4 % Diabetic >or= 6.5 % Please note range changes. Hemoglobin measurementOrdere d By: Lashay Tellez on 07-02-2024 Hemoglobin (Bld) [Mass/Vol] 14.1 g/dL 12.0-15.0 [facility] Hepatitis B Surface Antigeno n 07-02-2024 HEP B Surf Ag Non-Reactive Normal Nonreactive [facility] Comment on above: Order Comment: Reaso n for Exam: Performed By: #### L 7000.1800, L509.8000, L3890.6005, L100.0100, BTS, L7400.0353, L900.0098, L501.9985, L509.4005, L3890.6300, L3890.6100 ####[facility] [address] [place], [place], [id number] Hepatitis C Antibodyon 07-02 Hepatitis C AB Non-Reactive Normal Nonreactive [facility] Comment on above: Order Comment: Reaso n for Exam: Result Comment: Non Reactive: < 0.8 Equivocal: >/= 0.8 to < 1.0 Reactive: >/= 1.0 The CDC requires that a reactive/equivocal HCV antibody result be sent out for confirmation. HCV Quant by PCR testing. Performed By: #### L 7000.1800, L509.8000, L3890.6005, L100.0100, BTS, L7400.0353, L900.0098, L501.9985, L509.4005, L3890.6300, L3890.6100 ####[facility] [address] [place], [place], [address] Immature granulocytes/100 WB C Auto (Bld)Ordered By: Lashay Tellez on 07-02-2024 Immature granulocytes/100 WBC (Bld) 0.300 % 0.0-0.9 [facility] Comment on above: IG% - Immature Granu locytes (promyelocytes, myelocytes and metamyelocytes) > 1% indicates that a LEFT SHIFT is Present. L509.8000on 07-02-2024 Syphilis Abs Non-Reactive Normal [facility] Comment on above: Order Comment: Reaso n for Exam: Performed By: #### L 7000.1800, L509.8000, L3890.6005, L100.0100, BTS, L7400.0353, L900.0098, L501.9985, L509.4005, L3890.6300, L3890.6100 ####[facility] [address] [place], [address] Laboratory - CytologyOrdered By: Lashay Tellez on 07-02-2024 Lockstitch Topstitcher Cyto stain Nom (Cvx/Vag) [ID] Comment . [facility] Comment on above: Escobar Cassidy, Cyt otechnologist (ASCP) Laboratory - Miscellaneous t estsOrdered By: Lashay Tellez on 07-02-2024 Service comment (Unsp spec) [Interp] . . [facility] MCV (mean corpuscular volume ) determinationOrdered By: Lashay Tellez on 07-02-2024 MCV (RBC) [Entitic vol] 90.0 fL 81-99 [facility] Mean corpuscular hemoglobin (MCH) determinationOrdered By: Lashay Tellez on 07-02-2024 MCH (RBC) [Entitic mass] 28.7 pg 27.0-32.0 [facility] Mean corpuscular hemoglobin concentration (MCHC) determinationOrdered By: Lashay Tellez on 07-02-2024 MCHC (RBC) [Mass/Vol] 31.8 g/dL Low 32-36 [facility] Mean platelet volume determi nationOrdered By: Lashay Tellez on 07-02-2024 Platelet mean volume (Bld) [Entitic vol] 8.8 fL 6.2-12.0 [facility] Monocyte percentageOrdered B y: Lashay Tellez on 07-02-2024 Monocytes/100 WBC (Bld) 5.6 % 0-10 [facility] NATERAon 07-02-2024 NATURA SEE SCANNED REPORT Normal [facility] Comment on above: Performed By: #### L 7000.1800, L509.8000, L3890.6005, L100.0100, BTS, L7400.0353, L900.0098, L501.9985, L509.4005, L3890.6300, L3890.6100 #### [facility] [address] [place] [address], [id number] Neisseria gonorrhoeae nuclei c acid detection by amplified probe techniqueOrdered By: Lashay Tellez on 07-02-2024 N. gonorrhoeae DNA JOSE+probe Ql (Unsp spec) Negative Negative [facility] Comment on above: Performed at: =[address] [id number] Director: Em Ramirez MD, Phone: [phone] Neutrophil percentageOrdered By: Lashay Tellez on 07-02-2024 Neutrophils/100 WBC (Bld) 76.2 % High 47-70 [facility] No Panel InformationOrdered By: Lashay Tellez on 07-02-2024 Pap Smear QC Review Comment . [facility] Comment on above: Ivanna Roa Cytot echnologist (ASCP) Pap Smear Specimen Adequacy Comment . [facility] Comment on above: Satisfactory for jessica luation. No endocervical component is identified.An endocervical component is not commonly seen in the patient. Nucleated red blood cell per centageOrdered By: Lashay Tellez on 07-02-2024 Nucleated RBC/100 WBC (Bld) [Ratio] 0 % 0-5 [facility] Physical Chemistry Teacher Office Visit Reporton 07-02-2024 Physical Chemistry Teacher Office Visit Report [facility]'s [address], [address] [place] [address] OFFICE VISIT Date of Service: 07/02/24 MR#: [id number] Acct: [id number] Name: CYDNEY BROWN Rep #: [id number] : 2000 Provider: Dr. 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 Required: No Is patient in pain?: No Allergies No Known Allergies Allergy (Verified 07/02/24 10:16) Medications ???Medication ???Instructions ???Recorded ???Confirmed ???Type albuterol sulfate 90 mcg/actuation 2 puff inhalation Q6H PRN 08/08/23 07/02/24 History aerosol inhaler promethazine 12.5 mg tablet 12.5 mg PO Q6H PRN nausea and 06/20/24 07/02/24 Rx vomiting #60 tabs docosahexaenoic acid 200 mg mg PO 06/26/24 07/02/24 History capsule ( DHA) lactobacillus combination no.4 3 3,000 mmu cells PO QDAY 06/26/24 07/02/24 History billion cell capsule (Probiotic) magnesium 200 mg tablet 200 mg PO QDAY 06/26/24 07/02/24 History vitamin B complex (B-Complex 1 tab PO QDAY 06/26/24 07/02/24 History tablet) Last Menstrual Period: 04/22/24 Zika: Zika virus screening: Negative : No PFSH PFSH Surgical History S/P nasal surgery S/P wisdom tooth extraction S/P D C (status post dilation and curettage) Family History Grandmother Breast cancer maternal Grandfather Cancer Skin Aunt Cancer Skin Grandmother Heart disease Myocardial infarction Grandfather Kidney failure Father Pre-diabetes Social History adopted: No household members: spouse and children number of children: 1 current occupation: [employer] current occupational exposures/hazards: No pets and animals: No history of recent travel: No sexually active: Yes Smoking Status: Never smoker alcohol intake: current alcohol intake frequency: holidays/special occasions only details: Not while substance use type: does not use well-balanced diet: daily or most days caffeine: Yes Type: coffee eating out: rarely or never during the past year weight has: remained stable what type of physical activity do you participate in: walking and weight training frequency: 5-6 times per week duration: 30-45 minutes/day feliciano/baptist: Scientologist seatbelt use: always do you feel safe at home: Yes additional social history: : 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 Date Name GA/Weeks Outcome Route Bth Weight Infant Gen Labor Lgth Anesthesia Del Locatn Provider FOB 12/09/22 Ines 41 live - full term 7lbs 6oz Female 12 hours epi dural Andie Rigo Quintanaeusebio Roberts Delivery Date: 12/09/22 Last Updated by: Rachel Peña RN Retained placenta - bleed x8wk pp, D C 8wk pp HPI NEW OB LMP 04/22 Details: CYDNEY BROWN is a 24 year old who presents for New OB visit. OB Visit JANNET Calculator Estimated Delivery Date Method Current WG Current Estimate 01/27/25 LMP (Certain) 10w 1d Estimated Due Date: 01/27/25 Expected Delivery Route/Plan Labor Preferences- CB/BF classes: [] labor support person: [] labor intervention preferences: [] pain management options preferred: [] cut cord/dad catch: [] : [] PP control planned: [] discussed possible routes of delivery and associated risks: [] special requests: [] Specific Issue/Plans Covid status: [] Flu vaccine: [] Tdap vaccine: [] Rhogam: [] LARC form signed: [] Problem list reviewed and updated with the most current plan of care details and appropriate orders placed. Relevant counseling for the gestational age provided. Continue routine care and follow up unless otherwise noted in visit notes/problem list details Initial Weight: Not Recorded Date -???-???-???-???-???- ???-???-???-???-???-? ??-???- EGA Weight BP Urine Prot -???-???-???-???-???- ???-???-???-???-???-? ??-???- Glucose FHR FuHt Pres Dilation -???-???-???-???-???- ???-???-???-???-???-? ??-???- Effaced St Visit Note 07/02/24 -???-???-???-???-???- ???-???-???-???-???-? ??-???- 10w 1d 189 lb 112/76 -???-???-???-???-???- ???-???-???-???-???-? ??-???- 176 -???-???-???-???-???- ???-???-???-???-???-? ??-???- JV- CRL puma ures 10 weeks 6 day (more content not included)... Normal [facility] Platelet countOrdered By: Darrell Tellez on 07-02-2024 Platelets (Bld) [#/Vol] 428 10*3/uL 150-450 [facility] RBC Auto (Bld) [#/Vol]Ordere d By: Lashay Tellez on 07-02-2024 RBC (Bld) [#/Vol] 4.92 10*6/uL 4.2-5.4 [facility] Rubella IgGon 07-02-2024 Rubella IgG Reactive Normal Nonreactive [facility] Comment on above: Order Comment: Reaso n for Exam: Result Comment: Anti body Results Interpretation of Immune Status Non Reactive Presumed Non-Immune Equivocal Equivocal Reactive Presumed Immune Performed By: #### L 7000.1800, L509.8000, L3890.6005, L100.0100, BTS, L7400.0353, L900.0098, L501.9985, L509.4005, L3890.6300, L3890.6100 ####[facility] [id number] [place], [place], [id number] Serum Treponema species anti body detectionOrdered By: Lashay Tellez on 07-02-2024 Treponema sp Ab Ql (S) Non-Reactive [facility] Type AND Screenon 07-02-2024 Ab SCREEN GEL Negative Normal [facility] Comment on above: Order Comment: PN Performed By: #### L 7000.1800, L509.8000, L3890.6005, L100.0100, BTS, L7400.0353, L900.0098, L501.9985, L509.4005, L3890.6300, L3890.6100 ####[facility] [address] [place], [place], [phone] Urine cultureOrdered By: Elysia Tellez on 07-02-2024 Bacteria identified Cx Nom (U) Culture exhibits no growth. [facility] White blood cell (WBC) count Ordered By: Lashay Tellez on 07-02-2024 WBC (Bld) [#/Vol] 9.9 10*3/uL 4.4-11.0 [facility] Physical Chemistry Teacher Office Visit Reporton 05-21-2024 Physical Chemistry Teacher Office Visit Report [facility]'[address], [address] [place] [address] OFFICE VISIT Date of Service: 05/21/24 MR#: [id number] Acct: [id number] Name: CYDNEY BROWN Rep #: [id number] : 2000 Provider: NOEMÍ oakley Age/Sex: 24/F [place] [facility] [place] Status: Signed Intake Vital Signs 08/25/23 14:52 05/21/24 11:39 Height 5 ft 6 in 5 ft 6 in Weight: 187 lb 2 oz BMI 30.2 BP 110/74 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 Special Education Paraeducator Required: No Is patient in pain?: No Allergies No Known Allergies Allergy (Unverified 05/21/24 11:36) Medications ???Medication ???Instructions ???Recorded ???Confirmed ???Type albuterol sulfate 90 mcg/actuation 2 puff inhalation Q6H PRN 08/08/23 05/21/24 History aerosol inhaler Is last menstrual period known: Yes Last Menstrual Period: 04/21/24 Post menopausal: No Patient : No : No PFSH Surgical History S/P wisdom tooth extraction S/P D C (status post dilation and curettage) Family History Grandmother Breast cancer maternal Grandfather Cancer Skin Aunt Cancer Skin Social History household members: spouse current occupation: [employer] Smoking Status: Never smoker alcohol intake: never substance use type: does not use seatbelt use: always do you feel safe at home: Yes additional social history: - 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 She is due today for menses, trying to conceive and having nausea Female Reproductive History Last Menstrual Period: 04/21/24 History 1 Elective abortions Hx Para 1 Spontaneous abortions Hx # Term Pregnancies Ectopic pregnancies Hx # Pregnancies Multiple births # of living children 1 Past Pregnancies Del. Date Name GA/Weeks Outcome Route Bth Weight Infant Gen Labor Lgth Anesthesia Del Locatn Provider FOB 12/09/22 Ines 41 live - full term 7lbs 6oz Female 12 hours epi dural Andie [place] ROS Const Constitutional: Reports system reviewed and no additional complaints, except as documented Eyes Eyes: Reports system reviewed and no additional complaints, except as documented GI GI: Denies abdominal pain or change in bowel habits : Reports as per HPI Exam Const General: cooperative and no acute distress Orientation: oriented x3 External Female Exam: normal external appearance (5mm inclusion cyst upper left vulva) and normal appearance of the urethra Urethra: normal appearance of the urethra Results POC Urine Office , Urine Positive Last Edit by Bernadine aBrcenas on 05/21/24 11:48 Coding Level of Care Code Off vis,est,level 3 Diagnoses Amenorrhea N91.2 Inclusion cyst of vulva N90.7 Assessment and Plan Assessment and Plan (1) Amenorrhea: (2) Inclusion cyst of vulva: Orders: Orders POC Urine Today N91.2 - Amenorrhea, unspecified Plan Positive UPT. Take vitamins Start B6 and half tab unisom daily for nausea Enc warm soaks to vulva prn, do not manipulate Schedule PNOB, NOB 05/21/24 1213 Date Malathi Magdaleno NP CONCESSION ATTENDANT-C Cosigner Signature: Date (if applicable) [facility] Lyme Total Antibody DRAGAN Negative Normal Negative A [facility] ([place]) Comment on above: Result Comment: Lyme antibodies not detected. Reflex testing is not indicated. No laboratory evidence of infection with B. burgdorferi (Lyme disease). Negative results may occur in patients recently infected (less than or equal to 14 days) with B. burgdorferi. If recent infection is suspected, repeat testing on a new sample collected in 7 to 14 days is recommended. Performed At: [address], [place] [id number] Dian Reveles PhD Ph:[phone] Performed By: #### 1 50577, GFR, TSHR, ANEU, CMP, CBC, ADIFF ####[address] [address] .Auto Diffon 12-08-2023 Basophil, Absolute 0.0 10 3/mcL Normal 0.0-0.2 [facility] ([place]) Comment on above: Performed By: #### 1 57027, GFR, TSHR, ANEU, CMP, CBC, ADIFF #### [address] [address] Basophils/100 WBC (Bld) 0.3 % Normal 0.0-2.5 A [facility] ([place]) Comment on above: Performed By: #### 1 02727, GFR, TSHR, ANEU, CMP, CBC, ADIFF #### [address] [address] Eosinophil, Absolute 0.0 10 3/mcL Normal 0.0-0.4 [facility] ([place]) Comment on above: Performed By: #### 1 52391, GFR, TSHR, ANEU, CMP, CBC, ADIFF #### [address] [address] Eosinophils/100 WBC (Bld) 0.7 % Normal 0.0-7.0 [facility] ([place]) Comment on above: Performed By: #### 1 63586, GFR, TSHR, ANEU, CMP, CBC, ADIFF #### [address] [address] Lymphocyte, Absolute 1.7 10 3/mcL Normal 0.8-3.9 [facility] ([place]) Comment on above: Performed By: #### 1 79826, GFR, TSHR, ANEU, CMP, CBC, ADIFF #### [address] [address] Lymphocytes/100 WBC (Bld) 26.7 % Normal 10.0-50.0 [facility] ([place]) Comment on above: Performed By: #### 1 11716, GFR, TSHR, ANEU, CMP, CBC, ADIFF #### [address] [address] Monocyte, Absolute 0.5 10 3/mcL Normal 0.2-1.0 [facility] ([place]) Comment on above: Performed By: #### 1 99998, GFR, TSHR, ANEU, CMP, CBC, ADIFF #### [address] [address] Monocytes/100 WBC (Bld) 7.4 % Normal 1.7-13.0 A [facility] ([place]) Comment on above: Performed By: #### 1 [address]0185, GFR, TSHR, ANEU, CMP, CBC, ADIFF #### [address] [address] Neutrophils/100 WBC (Bld) 64.9 % Normal 37.0-80.0 [facility] ([place]) Comment on above: Performed By: #### 1 64243, GFR, TSHR, ANEU, CMP, CBC, ADIFF #### [address] [address] .GFRon 12-08-2023 GFR 109 ml/min/1.73sqm Normal [facility] ([place]) Comment on above: Result Comment: GFR Population mean for , Non- Americans Ages 20-29 = 116 mL/min/1.73 sq.m. Ages 30-39 = 107 mL/min/1.73 sq.m. Ages 40-49 = 99 mL/min/1.73 sq.m. Ages 50-59 = 93 mL/min/1.73 sq.m. Ages 60-69 = 85 mL/min/1.73 sq.m. Ages 70+ = 75 mL/min/1.73 sq.m. Chronic Kidney Disease: Less than 60 mL/min/1.73 square meters End Stage Renal Disease: Less than 15 mL/min/1.73 square meters Performed By: #### 1 59620, GFR, TSHR, ANEU, CMP, CBC, ADIFF #### [address] [address] GFR Non- 90 ml/min/1.73sqm Normal [facility] ([place]) Comment on above: Result Comment: GFR Population mean for , Non- Americans Ages 20-29 = 116 mL/min/1.73 sq.m. Ages 30-39 = 107 mL/min/1.73 sq.m. Ages 40-49 = 99 mL/min/1.73 sq.m. Ages 50-59 = 93 mL/min/1.73 sq.m. Ages 60-69 = 85 mL/min/1.73 sq.m. Ages 70+ = 75 mL/min/1.73 sq.m. Chronic Kidney Disease: Less than 60 mL/min/1.73 square meters End Stage Renal Disease: Less than 15 mL/min/1.73 square meters Performed By: #### 1 90651, GFR, TSHR, ANEU, CMP, CBC, ADIFF #### [address] [address] .NEUABSon 12-08-2023 Neutrophil, Absolute 4.2 10 3/mcL Normal 2.9-6.2 [facility] ([place]) Comment on above: Performed By: #### 1 [address]196, GFR, TSHR, ANEU, CMP, CBC, ADIFF #### [place] [id number] CBCon 12-08-2023 Erythrocyte distribution width (RBC) [Ratio] 13.6 % Normal 11.5-14.5 [facility] ([place]) Comment on above: Performed By: #### 1 [address]32, GFR, TSHR, ANEU, CMP, CBC, ADIFF #### [address] [address] Hematocrit (Bld) [Volume fraction] 46.1 % Normal 37.0-47.0 [facility] ([place]) Comment on above: Performed By: #### 1 59995, GFR, TSHR, ANEU, CMP, CBC, ADIFF #### [address] [address] Hgb 15.4 G/dL Normal 12.0-16.0 [facility] ([place]) Comment on above: Performed By: #### 1 [address]140, GFR, TSHR, ANEU, CMP, CBC, ADIFF #### [address] [address] MCH (RBC) [Entitic mass] 29.8 pg Normal 27.0-31.2 [facility] ([place]) Comment on above: Performed By: #### 1 02562, GFR, TSHR, ANEU, CMP, CBC, ADIFF #### [place] [id number] MCHC 33.5 G/dL Normal 33.0-37.0 [facility] ([place]) Comment on above: Performed By: #### 1 30670, GFR, TSHR, ANEU, CMP, CBC, ADIFF #### [place] [id number] MCV (RBC) [Entitic vol] 89.0 fL Normal 80.0-94.0 [facility] ([place]) Comment on above: Performed By: #### 1 18447, GFR, TSHR, ANEU, CMP, CBC, ADIFF #### [address] [address] Platelet 380 10 3/mcL Normal 130-400 [facility] ([place]) Comment on above: Performed By: #### 1 13053, GFR, TSHR, ANEU, CMP, CBC, ADIFF #### [address] [address] Platelet mean volume (Bld) [Entitic vol] 7.3 fL Low 7.4-10.4 [facility] ([place]) Comment on above: Performed By: #### 1 20674, GFR, TSHR, ANEU, CMP, CBC, ADIFF #### [place] [id number] RBC 5.18 10 6/mcL Normal 4.20-5.40 [facility] ([place]) Comment on above: Performed By: #### 1 74737, GFR, TSHR, ANEU, CMP, CBC, ADIFF #### [place] [id number] WBC 6.5 10 3/mcL Normal 4.6-10.8 [facility] ([place]) Comment on above: Performed By: #### 1 67728, GFR, TSHR, ANEU, CMP, CBC, ADIFF #### [address] [address] CMPon 12-08-2023 Albumin Level 3.9 G/dL Normal 3.5-5.0 [facility] ([place]) Comment on above: Performed By: #### 1 24149, GFR, TSHR, ANEU, CMP, CBC, ADIFF #### [address] [address] Albumin/Globulin [Mass ratio] 1.2 {ratio} Normal 1.1-2.5 [facility] ([place]) Comment on above: Performed By: #### 1 93291, GFR, TSHR, ANEU, CMP, CBC, ADIFF #### [address] [address] ALP [Catalytic activity/Vol] 102 U/L Normal 40-135 [facility] ([place]) Comment on above: Performed By: #### 1 07487, GFR, TSHR, ANEU, CMP, CBC, ADIFF #### [address] [address] ALT [Catalytic activity/Vol] 28 U/L Normal 14-59 [facility] ([place]) Comment on above: Performed By: #### 1 73219, GFR, TSHR, ANEU, CMP, CBC, ADIFF #### [address] [address] AST [Catalytic activity/Vol] 15 U/L Normal 10-40 [facility] ([place]) Comment on above: Performed By: #### 1 62742, GFR, TSHR, ANEU, CMP, CBC, ADIFF #### [address] [address] Bili Total 0.4 mg/dL Normal 0.2-1.0 [facility] ([place]) Comment on above: Result Comment: Use of this assay is not recommended for patients undergoing treatment with eltrombopag due to the potential for falsely elevated results. Performed By: #### 1 32903, GFR, TSHR, ANEU, CMP, CBC, ADIFF #### [address] [address] BUN/Creatinine Ratio 20 ratio Normal 7-27 [facility] ([place]) Comment on above: Performed By: #### 1 56709, GFR, TSHR, ANEU, CMP, CBC, ADIFF #### [address] [address] Calcium [Mass/Vol] 9.0 mg/dL Normal 8.4-10.2 [facility] ([place]) Comment on above: Performed By: #### 1 79087, GFR, TSHR, ANEU, CMP, CBC, ADIFF #### [address] [address] Chloride [Moles/Vol] 104 mmol/L Normal 98-107 [facility] ([place]) Comment on above: Performed By: #### 1 58579, GFR, TSHR, ANEU, CMP, CBC, ADIFF #### [address] [address] CO2 [Moles/Vol] 28 mmol/L Normal 22-29 [facility] ([place]) Comment on above: Performed By: #### 1 91722, GFR, TSHR, ANEU, CMP, CBC, ADIFF #### [address] [address] Creatinine [Mass/Vol] 0.80 mg/dL Normal 0.55-1.02 [facility] ([place]) Comment on above: Performed By: #### 1 47115, GFR, TSHR, ANEU, CMP, CBC, ADIFF #### [address] [address] Electrolyte Balance 8.0 mEq/L Normal 4.0-15.0 [facility] ([place]) Comment on above: Performed By: #### 1 77747, GFR, TSHR, ANEU, CMP, CBC, ADIFF #### [address] [address] Globulin 3.3 G/dL Normal [facility] ([place]) Comment on above: Performed By: #### 1 49867, GFR, TSHR, ANEU, CMP, CBC, ADIFF #### [address] [address] Glucose [Mass/Vol] 85 mg/dL Normal 70-105 [facility] ([place]) Comment on above: Performed By: #### 1 35888, GFR, TSHR, ANEU, CMP, CBC, ADIFF #### [address] [address] Potassium [Moles/Vol] 4.4 mmol/L Normal 3.5-5.1 [facility] ([place]) Comment on above: Performed By: #### 1 04670, GFR, TSHR, ANEU, CMP, CBC, ADIFF #### [place] [address] Sodium [Moles/Vol] 140 mmol/L Normal 136-145 [facility]) Comment on above: Performed By: #### 1 82030, GFR, TSHR, ANEU, CMP, CBC, ADIFF #### [address] [address] Total Protein 7.2 G/dL Normal 6.4-8.2 [facility]) Comment on above: Performed By: #### 1 11224, GFR, TSHR, ANEU, CMP, CBC, ADIFF #### [address] [address] Urea nitrogen [Mass/Vol] 16 mg/dL Normal 7-18 [facility]) Comment on above: Performed By: #### 1 97195, GFR, TSHR, ANEU, CMP, CBC, ADIFF #### [address] [address] TSHRon 12-08-2023 TSH Qn 0.91 m[IU]/L Normal 0.36-3.74 [facility] ([place]) Comment on above: Performed By: #### 1 20278, GFR, TSHR, ANEU, CMP, CBC, ADIFF #### [address] [address] [address] ABDOMEN/PELVIS W/CONTRAST on 10-04-2023 CT ABDOMEN/PELVIS W/CONTRAST ORIGINAL EXAMINATION: CT OF THE ABDOMEN AND PELVIS WITH CONTRAST 10/04/2023 11:27 am TECHNIQUE: CT of the abdomen and pelvis was performed with the administration of intravenous contrast. Multiplanar reformatted images are provided for review. Automated exposure control, iterative reconstruction, and/or weight based adjustment of the mA/kV was utilized to reduce the radiation dose to as low as reasonably achievable. COMPARISON: None. HISTORY: ORDERING SYSTEM PROVIDED HISTORY: Reason for Exam: llq abd pain FINDINGS: No osseous abnormality identified. The lung bases are unremarkable. Liver, spleen, adrenal glands and pancreas appear normal. The kidneys are unremarkable as well. No adenopathy, free air or free fluid is evident. Solid pelvic organs and urinary bladder are grossly normal. No GI tract abnormality is visible. No additional contributory finding. IMPRESSION: No acute process. No cause for pain seen on this exam. Interpreted by: Blayne Chaves MD Preliminary Report By: Blayne Chaves MD Electronically signed By Blayne Chaves MD Dictated Date: 10/04/2023 1:22:25 PM Prelim Date: 10/04/2023 1:27:17 PM Sign Date: 10/04/2023 1:27:17 PM Ordering Provider: JENNIFFER Naranjo [facility] ([place]) HCG QUALITATIVE URINEon 09-11 Beta HCG ( test) Ql (U) Negative Normal Negative [facility] Comment on above: Order Comment: If no t on record less than 7 days and indicated. For female patients less than 55 years old and no history of hysterectomy. Result Comment: Plea se note: Very dilute urine specimens, as indicated by a low specific gravity, may not contain front office representative levels of hCG. If is still suspected, a first morning urine specimen should be collected 48 hours later and tested. ORDER COMMENTS: is the most common reason for HCG in urine, although choriocarcinoma, hydatidiform mole, and certain nontrophoblastic malignancies also result in detectable urinary HCG levels. Sensitivity = 20mIU/mL. Performed By: #### L [id number] #### [employer]: THEODORE BRITTON ([id number]) [facility] JOELOT[facility]LL[facility] ([facility]) [address] [place] [address] [place] Laboratory - Chemistry and C hemistry - challengeOrdered By: Rula Michael on 09-29-2023 Beta HCG ( test) Ql Negative Negative [facility] Comment on above: Please note: Very di lute urine specimens, as indicated by a low specific gravity, may not contain front office representative levels of hCG. If is still suspected, a first morning urine specimen should be collected 48 hours later and tested. Beta HCG ( test) Ql (U) is the most common reason for HCG in urine, although choriocarcinoma, hydatidiform mole, and certain nontrophoblastic malignancies also result in detectable urinary HCG levels. Sensitivity = 20mIU/mL. [facility] No Panel InformationOrdered By: Rula Michael on 09-29-2023 [facility] Nursing Noteon 09-29-2023 Nursing Note Pt and family verbalized understanding of recovery instructions, pt verbalized a readiness to be discharged home. Pt discharged home via wheelchair accompanied by RN/volunteer. Pt has had all their belongings returned to them at discharge Nursing Note Patient is transported to same day surgery for discharge and is brought to bedside. She is alert and has no complaints. Discharge instructions reviewed with pt and and she states she is ready to go home. Iv discontinued and report is given to coral Nursing Note Pt received from OR via cart, spont. Resp. With HEAT TREATMENT TECHNICIAN in attendance. Placed on monitor. Monitor alarms on in PACU Op Noteon 09-29-2023 Op Note OPERATIVE NOTE Patient Name: Cydney Brown DATE OF PROCEDURE: 09/29/2023 SURGEON: Radha Scott DO PREOPERATIVE DIAGNOSES: Pre-op Diagnosis * Epistaxis [R04.0] POSTOPERATIVE DIAGNOSES: same PROCEDURE: Procedure(s): LEFT CONTROL OF ANTERIOR NASAL HEMORRHAGE, COMPLEX ANESTHESIA: General COMPLICATIONS: NONE ESTIMATED BLOOD LOSS: None GROSS FINDINGS: Prominent varices left anterior septum - friable. DESCRIPTION OF PROCEDURE: The patient was draped in the usual sterile fashion. Anterior rhinoscopy was performed using a nasal speculum. Afrin packs were placed into the left and right nasal cavities. Following adequate time for vasoconstriction the packs were removed. The suction cautery unit was taken. There was a hypervascular area noted to the anterior septal mucosa region. Complex cauterization was performed to the varicosity. The varix was cauterized in a stepwise fashion until it was cautery ablated. Afrin packs were reapplied and subsequently removed. Final reinspection confirmed hemostasis. Saline gel was topically applied to the anterior septal mucosal region. The patient tolerated the closed reduction without incident. Serum or plasma choriogonado tropin detectionOrdered By: Malathi Magdaleno on 09-27-2023 HCG ( test) Ql < 1 mIU/mL <4 [facility] Comment on above: hCG levels with Gest ational AgeGestational Age hCG mIU/mL (IU/L)0.2 - 1 week 5 - 501-2 weeks 50 - 5002-3 weeks 100 - 95723-1 weeks 500 - 304323-0 weeks 1000 - 053848-9 weeks 57726 - 100,0006-8 weeks 42737 - 200,0002-3 months 81935 - 100,000 PREPROCINSon 09-23-2023 PREPROCINS Medication List Accurate as of September 23, 2023 8:56 AM. Always use your most recent med list. ALBUTEROL SULFATE HFA IN Medication Adjustments for Surgery: Take morning of surgery Additional Instructions: You may take your prescription pain medication. You may take Tylenol for pain. NO Motrin, ibuprofen or Advil for 24 hours prior to surgery or longer if instructed by your surgeon. NO Aleve or Naprosyn for 5 days prior to surgery or longer if instructed by your surgeon. Shower with an antibacterial soap such as Dial or Safeguard or shower kit provided to you before coming to the hospital. No makeup, lotion, powder, deodorant or body spays. No hair products. Remove all jewelry and leave it at home. Wear loose comfortable clothing to go home in. You may brush your teeth morning of surgery. Do not wear contacts day of surgery. No marijuana (THC), smoking or alcohol for 24 hours prior to surgery. Please arrange for a responsible adult to drive you home after your surgery and that there is a responsible adult with you for 24 hours post discharge. If you have specific questions, please call your surgeon. You will receive a call the day before your surgery to verify your arrival time and date. You will be asked to arrive at least two hours prior to your scheduled surgery time. Please bring your [facility] Surgical folder and medication list with you day of surgery. We encourage you to write down any questions you may have for the surgeon, anesthesiologist, or other members of the surgical team and bring it with you the day of surgery. Please bring photo ID and insurance information. Final Surgical Pathology Rep matthew 02-08-2023 Final Surgical Pathology Report . Pathology Reports Accession: Collected Date/Time: Received Date/Time: Pathologist: [id number] 02/04/2023 07:35 EDT 02/07/2023 08:27 EDT HOANG CARRASCO MD Final Surgical Pathology Report DIAGNOSIS: RETAINED PLACENTA: - DEGENERATED AND CALCIFIED CHORIONIC VILLOUS TISSUE - FRAGMENTS OF WEAKLY PROLIFERATIVE ENDOMETRIUM WITH CHRONIC ENDOMETRITIS CLINICAL INFORMATION: RETAINED PORTIONS OF PLACENTA AND MEMBRANES, WITHOUT HEMORRHAGE Procedure: DILATION AND CURETTAGE UNDER U/S GUIDANCE Preoperative diagnosis: RETAINED PRODUCTS Postoperative diagnosis: RETAINED PRODUCTS SPECIMEN: A RETAINED PLACENTA GROSS DESCRIPTION: A. Received in formalin, labeled with the patients name, Case # [id number], and retained placenta are multiple almaraz hemorrhagic tissue fragments admixed with blood clots aggregating to 3.1 x 2.5 x 1 cm. TS -3 Dictated by JAVIER JOHNSON MICROSCOPIC DESCRIPTION: The microscopic examination is performed, except in the case of Gross Only. Electronically Signed by Pathology Report verified by [facility] HOANG CARRASCO Sign out Date: 02/08/2023 12:07 Performing Lab: [facility], [address] [place] [address] Pathology Dept Disclaimer If ancillary studies were utilized, the following Laboratory Developed Test (LDT) disclaimer will apply: Under CLIA requirements, [facility] Pathology Laboratory is qualified to perform high complexity testing. For all ancillary stains, positive and negative controls stain appropriately. Performance characteristics of immunohistochemical and chromogenic in-situ hybridization tests have been determined by [facility] Pathology Laboratory. These tests are used for clinical purposes, They should not be regarded as investigational or for research. Normal [facility] ([place]) US INTRAOPERATIVEon 02-05-20 US INTRAOPERATIVE ORIGINAL HISTORY: Retained products of conception COMPARISON: No IMPRESSION: Intraoperative ultrasound provided to the OBGYN service. Interpreted by: Cale Khanna MD Preliminary Report By: Cale Khanna MD Electronically signed By Cale Khanna MD Dictated Date: 02/04/2023 9:49:55 AM Prelim Date: 02/04/2023 9:50:31 AM Sign Date: 02/04/2023 9:50:31 AM Ordering Provider: MELISA Naranjo [facility] ([place]) .Auto Diffon 02-02-2023 Basophil, Absolute 0.0 10 3/mcL Normal 0.0-0.2 [facility] ([place]) Comment on above: Performed By: #### A CHRISTAL, ADIFF, GFR, CMP, CBC ####[address] [address] Basophils/100 WBC (Bld) 0.5 % Normal 0.0-2.5 [facility] ([place]) Comment on above: Performed By: #### A CHRISTAL, ADIFF, GFR, CMP, CBC ####[address] [address] Eosinophil, Absolute 0.0 10 3/mcL Normal 0.0-0.4 [facility] ([place]) Comment on above: Performed By: #### A CHRISTAL, ADIFF, GFR, CMP, CBC ####[address] [address] Eosinophils/100 WBC (Bld) 0.7 % Normal 0.0-7.0 [facility] ([place]) Comment on above: Performed By: #### A CHRISTAL, ADIFF, GFR, CMP, CBC ####[address] [address] Lymphocyte, Absolute 1.7 10 3/mcL Normal 0.8-3.9 [facility] ([place]) Comment on above: Performed By: #### A CHRISTAL, ADIFF, GFR, CMP, CBC ####[address] [address] Lymphocytes/100 WBC (Bld) 25.2 % Normal 10.0-50.0 [facility] ([place]) Comment on above: Performed By: #### A CHRISTAL, ADIFF, GFR, CMP, CBC ####[address] [address] Monocyte, Absolute 0.5 10 3/mcL Normal 0.2-1.0 [facility] ([place]) Comment on above: Performed By: #### A CHRISTAL, ADIFF, GFR, CMP, CBC ####[address] [address] Monocytes/100 WBC (Bld) 7.1 % Normal 1.7-13.0 [facility] ([place]) Comment on above: Performed By: #### A CHRISTAL, ADIFF, GFR, CMP, CBC ####[address] [address] Neutrophils/100 WBC (Bld) 66.5 % Normal 37.0-80.0 [facility] ([place]) Comment on above: Performed By: #### A CHRISTAL, ADIFF, GFR, CMP, CBC ####[address] [address] .GFRon 02-02-2023 GFR 100 ml/min/1.73sqm Normal [facility] ([place]) Comment on above: Result Comment: GFR Population mean for , Non- Americans Ages 20-29 = 116 mL/min/1.73 sq.m. Ages 30-39 = 107 mL/min/1.73 sq.m. Ages 40-49 = 99 mL/min/1.73 sq.m. Ages 50-59 = 93 mL/min/1.73 sq.m. Ages 60-69 = 85 mL/min/1.73 sq.m. Ages 70+ = 75 mL/min/1.73 sq.m. Chronic Kidney Disease: Less than 60 mL/min/1.73 square meters End Stage Renal Disease: Less than 15 mL/min/1.73 square meters Performed By: #### A CHRISTAL, ADIFF, GFR, CMP, CBC ####[address] [address] GFR Non- 82 ml/min/1.73sqm Normal [facility] ([place]) Comment on above: Result Comment: GFR Population mean for , Non- Americans Ages 20-29 = 116 mL/min/1.73 sq.m. Ages 30-39 = 107 mL/min/1.73 sq.m. Ages 40-49 = 99 mL/min/1.73 sq.m. Ages 50-59 = 93 mL/min/1.73 sq.m. Ages 60-69 = 85 mL/min/1.73 sq.m. Ages 70+ = 75 mL/min/1.73 sq.m. Chronic Kidney Disease: Less than 60 mL/min/1.73 square meters End Stage Renal Disease: Less than 15 mL/min/1.73 square meters Performed By: #### A CHRISTAL, ADIFF, GFR, CMP, CBC ####[place] [address] .NEUABSon 02-02-2023 Neutrophil, Absolute 4.4 10 3/mcL Normal 2.9-6.2 [facility] ([place]) Comment on above: Performed By: #### A CHRISTAL, ADIFF, GFR, CMP, CBC ####[place] [address] CBCon 02-02-2023 Erythrocyte distribution width (RBC) [Ratio] 14.3 % Normal 11.5-14.5 [facility] ([place]) Comment on above: Performed By: #### A CHRISTAL, ADIFF, GFR, CMP, CBC ####[place] [address] Hematocrit (Bld) [Volume fraction] 44.1 % Normal 37.0-47.0 [facility] ([place]) Comment on above: Performed By: #### A CHRISTAL, ADIFF, GFR, CMP, CBC ####[place] [address] Hgb 14.6 G/dL Normal 12.0-16.0 [facility] ([place]) Comment on above: Performed By: #### A CHRISTAL, ADIFF, GFR, CMP, CBC ####[place] [address] MCH (RBC) [Entitic mass] 28.9 pg Normal 27.0-31.2 [facility] ([place]) Comment on above: Performed By: #### A CHRISTAL, ADIFF, GFR, CMP, CBC ####[address] [address] MCHC 33.1 G/dL Normal 33.0-37.0 [facility] ([place]) Comment on above: Performed By: #### A CHRISTAL, ADIFF, GFR, CMP, CBC ####[address] [address] MCV (RBC) [Entitic vol] 87.4 fL Normal 80.0-94.0 [facility] ([place]) Comment on above: Performed By: #### A CHRISTAL, ADIFF, GFR, CMP, CBC ####[place] [address] Platelet 364 10 3/mcL Normal 130-400 [facility] ([place]) Comment on above: Performed By: #### A CHRISTAL, ADIFF, GFR, CMP, CBC ####[place] [address] Platelet mean volume (Bld) [Entitic vol] 7.1 fL Low 7.4-10.4 [facility] ([place]) Comment on above: Performed By: #### A CHRISTAL, ADIFF, GFR, CMP, CBC ####[place] [address] RBC 5.04 10 6/mcL Normal 4.20-5.40 [facility] ([place]) Comment on above: Performed By: #### A CHRISTAL, ADIFF, GFR, CMP, CBC ####[place] [id number] WBC 6.6 10 3/mcL Normal 4.6-10.8 [facility] ([place]) Comment on above: Performed By: #### A CHRISTAL, ADIFF, GFR, CMP, CBC ####[place] [address] CMPon 02-02-2023 Albumin Level 3.8 G/dL Normal 3.5-5.0 [facility] ([place]) Comment on above: Performed By: #### A CHRISTAL, ADIFF, GFR, CMP, CBC ####[place] [address] Albumin/Globulin [Mass ratio] 1.1 {ratio} Normal 1.1-2.5 [facility] ([place]) Comment on above: Performed By: #### A CHRISTAL, ADIFF, GFR, CMP, CBC ####[place] [address] ALP [Catalytic activity/Vol] 117 U/L Normal 40-135 [facility] ([place]) Comment on above: Performed By: #### A CHRISTAL, ADIFF, GFR, CMP, CBC ####[place] [address] ALT [Catalytic activity/Vol] 29 U/L Normal 14-59 [facility] ([place]) Comment on above: Performed By: #### A CHRISTAL, ADIFF, GFR, CMP, CBC ####[place] [address] AST [Catalytic activity/Vol] 26 U/L Normal 10-40 [facility] ([place]) Comment on above: Performed By: #### A CHRISTAL, ADIFF, GFR, CMP, CBC ####[place] [address] Bili Total 0.4 mg/dL Normal 0.2-1.0 [facility] ([place]) Comment on above: Result Comment: Use of this assay is not recommended for patients undergoing treatment with eltrombopag due to the potential for falsely elevated results. Performed By: #### A CHRISTAL, ADIFF, GFR, CMP, CBC ####[place] [address] BUN/Creatinine Ratio 16 ratio Normal 7-27 [facility] ([place]) Comment on above: Performed By: #### A CHRISTAL, ADIFF, GFR, CMP, CBC ####[place] [address] Calcium [Mass/Vol] 8.7 mg/dL Normal 8.4-10.2 [facility] ([place]) Comment on above: Performed By: #### A CHRISTAL, ADIFF, GFR, CMP, CBC ####[place] [address] Chloride [Moles/Vol] 107 mmol/L Normal 98-107 [facility] ([place] Comment on above: Performed By: #### A CHRISTAL, ADIFF, GFR, CMP, CBC ####[place] [address] CO2 [Moles/Vol] 28 mmol/L Normal 22-29 [facility] ([place]) Comment on above: Performed By: #### A CHRISTAL, ADIFF, GFR, CMP, CBC ####[place] [address] Creatinine [Mass/Vol] 0.87 mg/dL Normal 0.55-1.02 [facility] ([place]) Comment on above: Performed By: #### A CHRISTAL, ADIFF, GFR, CMP, CBC ####[place] [address] Electrolyte Balance 8.0 mEq/L Normal 4.0-15.0 [facility] ([place]) Comment on above: Performed By: #### A CHRISTAL, ADIFF, GFR, CMP, CBC ####[place] [address] Globulin 3.4 G/dL Normal [facility] ([place]) Comment on above: Performed By: #### A CHRISTAL, ADIFF, GFR, CMP, CBC ####[place] [address] Glucose [Mass/Vol] 82 mg/dL Normal 70-105 [facility] ([place] Comment on above: Performed By: #### A CHRISTAL, ADIFF, GFR, CMP, CBC ####[place] [address] Potassium [Moles/Vol] 4.4 mmol/L Normal 3.5-5.1 [facility] ([place]) Comment on above: Performed By: #### A CHRISTAL, ADIFF, GFR, CMP, CBC ####[place] [address] Sodium [Moles/Vol] 143 mmol/L Normal 136-145 [facility] ([place] Comment on above: Performed By: #### A CHRISTAL, ADIFF, GFR, CMP, CBC ####[place] [address] Total Protein 7.2 G/dL Normal 6.4-8.2 [facility] ([place] Comment on above: Performed By: #### A CHRISTAL, ADIFF, GFR, CMP, CBC ####[address] [address] Urea nitrogen [Mass/Vol] 14 mg/dL Normal 7-18 [facility] ([place] Comment on above: Performed By: #### A CHRISTAL, ADIFF, GFR, CMP, CBC ####[place] [address] [address] [place] [address] LABORATORYOrdered By: SYSTEM SYSTEM on 02-02-2023 Albumin BCP dye [Mass/Vol] 3.8 G/dL Invalid Interpretation Code 3.5 - 5.0 G/dL AO ADM SS Albumin/Globulin [Mass ratio] 1.1 {ratio} Invalid Interpretation Code 1.1 - 2.5 ratio AO ADM SS ALP [Catalytic activity/Vol] 117 U/L Invalid Interpretation Code 40 - 135 U/L AO ADM SS ALT With P-5'-P [Catalytic activity/Vol] 29 U/L Invalid Interpretation Code 14 - 59 U/L AO ADM SS AST With P-5'-P [Catalytic activity/Vol] 26 U/L Invalid Interpretation Code 10 - 40 U/L AO ADM SS Basophil, Absolute 0.0 103/mcL Invalid Interpretation Code 0.0 - 0.2 10^3/mcL AO Workflow SS Basophils/100 WBC (Bld) 0.5 % Invalid Interpretation Code 0.0 - 2.5 % AO Workflow SS Bilirubin [Mass/Vol] 0.4 mg/dL Invalid Interpretation Code 0.2 - 1.0 mg/dL AO ADM SS Comment on above: Interpretive Data: U se of this assay is not recommended for patients undergoing treatment with eltrombopag due to the potential for falsely elevated results. Calcium [Mass/Vol] 8.7 mg/dL Invalid Interpretation Code 8.4 - 10.2 mg/dL AO ADM SS Chloride [Moles/Vol] 107 mmol/L Invalid Interpretation Code 98 - 107 mmol/L AO ADM SS CO2 [Moles/Vol] 28 mmol/L Invalid Interpretation Code 22 - 29 mmol/L AO ADM SS Creatinine [Mass/Vol] 0.87 mg/dL Invalid Interpretation Code 0.55 - 1.02 mg/dL AO ADM SS Electrolyte Balance 8.0 mEq/L Invalid Interpretation Code 4.0 - 15.0 mEq/L AO ADM SS Eosinophil, Absolute 0.0 103/mcL Invalid Interpretation Code 0.0 - 0.4 10^3/mcL AO Workflow SS Eosinophils/100 WBC (Bld) 0.7 % Invalid Interpretation Code 0.0 - 7.0 % AO Workflow SS Erythrocyte distribution width (RBC) [Ratio] 14.3 % Invalid Interpretation Code 11.5 - 14.5 % AO Workflow SS GFR/1.73 sq M.predicted among blacks MDRD (S/P/Bld) [Vol rate/Area] 100 ml/min/1.73sqm Invalid Interpretation Code AO Chemistry S Comment on above: Interpretive Data: GFR Population mean for , Non- Americans Ages 20-29 = 116 mL/min/1.73 sq.m. Ages 30-39 = 107 mL/min/1.73 sq.m. Ages 40-49 = 99 mL/min/1.73 sq.m. Ages 50-59 = 93 mL/min/1.73 sq.m. Ages 60-69 = 85 mL/min/1.73 sq.m. Ages 70+ = 75 mL/min/1.73 sq.m. Chronic Kidney Disease: Less than 60 mL/min/1.73 square meters End Stage Renal Disease: Less than 15 mL/min/1.73 square meters GFR/1.73 sq M.predicted among non-blacks MDRD (S/P/Bld) [Vol rate/Area] 82 ml/min/1.73sqm Invalid Interpretation Code AO Chemistry S Comment on above: Interpretive Data: GFR Population mean for , Non- Americans Ages 20-29 = 116 mL/min/1.73 sq.m. Ages 30-39 = 107 mL/min/1.73 sq.m. Ages 40-49 = 99 mL/min/1.73 sq.m. Ages 50-59 = 93 mL/min/1.73 sq.m. Ages 60-69 = 85 mL/min/1.73 sq.m. Ages 70+ = 75 mL/min/1.73 sq.m. Chronic Kidney Disease: Less than 60 mL/min/1.73 square meters End Stage Renal Disease: Less than 15 mL/min/1.73 square meters Globulin 3.4 G/dL Invalid Interpretation Code AO ADM SS Glucose [Mass/Vol] 82 mg/dL Invalid Interpretation Code 70 - 105 mg/dL AO ADM SS Hematocrit (Bld) [Volume fraction] 44.1 % Invalid Interpretation Code 37.0 - 47.0 % AO Workflow SS Hemoglobin (Bld) [Mass/Vol] 14.6 G/dL Invalid Interpretation Code 12.0 - 16.0 G/dL AO Workflow SS Lymphocyte, Absolute 1.7 103/mcL Invalid Interpretation Code 0.8 - 3.9 10^3/mcL AO Workflow SS Lymphocytes/100 WBC (Bld) 25.2 % Invalid Interpretation Code 10.0 - 50.0 % AO Workflow SS MCH (RBC) [Entitic mass] 28.9 pg Invalid Interpretation Code 27.0 - 31.2 pg AO Workflow SS MCHC 33.1 G/dL Invalid Interpretation Code 33.0 - 37.0 G/dL AO Workflow SS MCV (RBC) [Entitic vol] 87.4 fL Invalid Interpretation Code 80.0 - 94.0 fL AO Workflow SS Monocyte, Absolute 0.5 103/mcL Invalid Interpretation Code 0.2 - 1.0 10^3/mcL AO Workflow SS Monocytes/100 WBC (Bld) 7.1 % Invalid Interpretation Code 1.7 - 13.0 % AO Workflow SS Neutrophil, Absolute 4.4 103/mcL Invalid Interpretation Code 2.9 - 6.2 10^3/mcL AO Workflow SS Neutrophils/100 WBC (Bld) 66.5 % Invalid Interpretation Code 37.0 - 80.0 % AO Workflow SS Platelet mean volume (Bld) [Entitic vol] 7.1 fL Invalid Interpretation Code 7.4 - 10.4 fL AO Workflow SS Platelets (Bld) [#/Vol] 364 103/mcL Invalid Interpretation Code 130 - 400 10^3/mcL AO Workflow SS Potassium [Moles/Vol] 4.4 mmol/L Invalid Interpretation Code 3.5 - 5.1 mmol/L AO ADM SS Protein [Mass/Vol] 7.2 G/dL Invalid Interpretation Code 6.4 - 8.2 G/dL AO ADM SS RBC (Bld) [#/Vol] 5.04 106/mcL Invalid Interpretation Code 4.20 - 5.40 10^6/mcL AO Workflow SS Sodium [Moles/Vol] 143 mmol/L Invalid Interpretation Code 136 - 145 mmol/L AO ADM SS Urea nitrogen [Mass/Vol] 14 mg/dL Invalid Interpretation Code 7 - 18 mg/dL AO ADM SS Urea nitrogen/Creatinine [Mass ratio] 16 ratio Invalid Interpretation Code 7 - 27 ratio AO ADM SS WBC (Bld) [#/Vol] 6.6 103/mcL Invalid Interpretation Code 4.6 - 10.8 10^3/mcL AO Workflow SS US PELVIS NON-OB W/TRANSVAGI NALon 02-02-2023 US PELVIS NON-OB W/TRANSVAGINAL ORIGINAL EXAMINATION: TRANSVAGINAL and transabdominal PELVIC ULTRASOUND 02/02/2023 TECHNIQUE: Transvaginal and trans abdominal pelvic ultrasound was performed. COMPARISON: Obs ultrasound October 2022, 10/2022 HISTORY: ORDERING SYSTEM PROVIDED HISTORY: Reason for Exam: excessive bleeding, vaginal delivery 8 weeks ago FINDINGS: Measurements: Uterus: 7.3 x 6.2 x 4.1 cm. Endometrial stripe: 13.9 mm. Right Ovary:5.5 x 2.1 x 2.2 cm, 13.6 cc. Left Ovary: 4.8 x 2.1 x 1.9 cm, 10.2 cc Ultrasound Findings: Uterus: Uterus is retroverted, demonstrates normal myometrial echotexture. No focal myometrial lesion. Endometrial stripe: Ill-defined hyperechoic content measuring 14 mm seen in the upper part of endometrial cavity near the fundus with focus of posterior acoustic shadowing possible calcification within. There are some areas of blood flow within this abnormality. Right Ovary: Right ovary is within normal limits. There is normal arterial and venous Doppler flow. Left Ovary: Left ovary is within normal limits. There is normal arterial and venous Doppler flow. Free Fluid: Mild free fluid in posterior cul-de-sac and pelvis. IMPRESSION: Findings suggestive of retained products of conception. Normal Doppler flow within the ovaries. I have personally reviewed the images of this examination and agree with the resident's findings and interpretation. Interpreted by: Mark Jiang MD Preliminary Report By: Gallito Hernandez Electronically signed By Mark Jiang MD Dictated Date: 02/02/2023 2:09:29 PM Prelim Date: 02/02/2023 2:33:37 PM Sign Date: 02/02/2023 2:33:37 PM Ordering Provider: JAXSON SIMMONS [facility] ([place]) LABORATORYOrdered By: SYSTEM SYSTEM on 12-10-2022 Hematocrit (Bld) [Volume fraction] 30.0 % Invalid Interpretation Code 37.0 - 47.0 % AO Workflow SS Hemoglobin (Bld) [Mass/Vol] 10.0 G/dL Invalid Interpretation Code 12.0 - 16.0 G/dL AO Workflow SS LABORATORYOrdered By: Kleber Gilliam on 12-08-2022 ABO/Rh Interp Positive Invalid Interpretation Code AO BB SS Antibody Screen Gel Negative ABSC (12/08/22 11:22 PM) Invalid Interpretation Code AO BB SS Basophil, Absolute 0.0 103/mcL Invalid Interpretation Code 0.0 - 0.2 10^3/mcL AO Workflow SS Basophils/100 WBC (Bld) 0.1 % Invalid Interpretation Code 0.0 - 2.5 % AO Workflow SS Eosinophil, Absolute 0.0 103/mcL Invalid Interpretation Code 0.0 - 0.4 10^3/mcL AO Workflow SS Eosinophils/100 WBC (Bld) 0.1 % Invalid Interpretation Code 0.0 - 7.0 % AO Workflow SS Erythrocyte distribution width (RBC) [Ratio] 14.3 % Invalid Interpretation Code 11.5 - 14.5 % AO Workflow SS Hematocrit (Bld) [Volume fraction] 37.3 % Invalid Interpretation Code 37.0 - 47.0 % AO Workflow SS Hemoglobin (Bld) [Mass/Vol] 12.4 G/dL Invalid Interpretation Code 12.0 - 16.0 G/dL AO Workflow SS Lymphocyte, Absolute 1.3 103/mcL Invalid Interpretation Code 0.8 - 3.9 10^3/mcL AO Workflow SS Lymphocytes/100 WBC (Bld) 9.1 % Invalid Interpretation Code 10.0 - 50.0 % AO Workflow SS MCH (RBC) [Entitic mass] 28.8 pg Invalid Interpretation Code 27.0 - 31.2 pg AO Workflow SS MCHC 33.4 G/dL Invalid Interpretation Code 33.0 - 37.0 G/dL AO Workflow SS MCV (RBC) [Entitic vol] 86.3 fL Invalid Interpretation Code 80.0 - 94.0 fL AO Workflow SS Monocyte, Absolute 0.8 103/mcL Invalid Interpretation Code 0.2 - 1.0 10^3/mcL AO Workflow SS Monocytes/100 WBC (Bld) 5.5 % Invalid Interpretation Code 1.7 - 13.0 % AO Workflow SS Neutrophil, Absolute 12.4 103/mcL Invalid Interpretation Code 2.9 - 6.2 10^3/mcL AO Workflow SS Neutrophils/100 WBC (Bld) 85.2 % Invalid Interpretation Code 37.0 - 80.0 % AO Workflow SS Platelet mean volume (Bld) [Entitic vol] 7.3 fL Invalid Interpretation Code 7.4 - 10.4 fL AO Workflow SS Platelets (Bld) [#/Vol] 384 103/mcL Invalid Interpretation Code 130 - 400 10^3/mcL AO Workflow SS RBC (Bld) [#/Vol] 4.32 106/mcL Invalid Interpretation Code 4.20 - 5.40 10^6/mcL AO Workflow SS WBC (Bld) [#/Vol] 14.6 103/mcL Invalid Interpretation Code 4.6 - 10.8 10^3/mcL AO Workflow SS Oqahe-6-Hptsgzrufzaor.p lacental Ql (Vag fld) Negative (12/08/22 3:55 AM) Invalid Interpretation Code Negative AO Rapid Testing SS LABORATORYOrdered By: Daniel Gentile on 12-08-2022 Reagin Ab RPR Ql (S) Non-Reactive (12/08/22 11:22 PM) Invalid Interpretation Code Non-Reactive AH Man Viro/Sero SS LABORATORYOrdered By: Frandy Yanez on 12-08-2022 ABO and Rh group Nom (Bld) O positive (12/08/22 10:42 PM) [facility] Work Phone: Group B Strep Date Performed [id number] [facility] Work Phone: Group B Strep, External Negative (12/08/22 10:42 PM) [facility] Work Phone: Hepatitis B Date Performed [id number] [facility] Work Phone: Hepatitis B, External Negative (12/08/22 10:42 PM) [facility] Work Phone: RPR, External Nonreactive (12/08/22 10:42 PM) [facility] Work Phone: Rubella, External Immune (12/08/22 10:42 PM) [facility] Work Phone: LABORATORYOrdered By: Getachew Tang on 11-09-2022 Group B Strep PCR Int Group B Streptococ cus DNA not detected by real-time PCR. A negative result does not rule out the possibility of Group B streptococcus. Assay should be used as an adjunct to clinical observations and other information available to the physician. The test is not intended to differentiate carriers of Group B streptococcus from those with streptococcal disease. Invalid Interpretation Code AO Auto Urine SS S. agalactiae DNA JOSE+probe Ql (Unsp spec) Negative *NA* (11/09/22 11:22 AM) Invalid Interpretation Code Negative AO Auto Urine SS LABORATORYOrdered By: Patricia Schaeffer on 09-14-2022 Basophil, Absolute 0.0 103/mcL Invalid Interpretation Code 0.0 - 0.2 10^3/mcL AO Workflow SS Basophils/100 WBC (Bld) 0.1 % Invalid Interpretation Code 0.0 - 2.5 % AO Workflow SS Eosinophil, Absolute 0.0 103/mcL Invalid Interpretation Code 0.0 - 0.4 10^3/mcL AO Workflow SS Eosinophils/100 WBC (Bld) 0.4 % Invalid Interpretation Code 0.0 - 7.0 % AO Workflow SS Erythrocyte distribution width (RBC) [Ratio] 13.6 % Invalid Interpretation Code 11.5 - 14.5 % AO Workflow SS Hematocrit (Bld) [Volume fraction] 35.6 % Invalid Interpretation Code 37.0 - 47.0 % AO Workflow SS Hemoglobin (Bld) [Mass/Vol] 12.0 G/dL Invalid Interpretation Code 12.0 - 16.0 G/dL AO Workflow SS Lymphocyte, Absolute 1.4 103/mcL Invalid Interpretation Code 0.8 - 3.9 10^3/mcL AO Workflow SS Lymphocytes/100 WBC (Bld) 12.7 % Invalid Interpretation Code 10.0 - 50.0 % AO Workflow SS MCH (RBC) [Entitic mass] 30.3 pg Invalid Interpretation Code 27.0 - 31.2 pg AO Workflow SS MCHC 33.7 G/dL Invalid Interpretation Code 33.0 - 37.0 G/dL AO Workflow SS MCV (RBC) [Entitic vol] 90.1 fL Invalid Interpretation Code 80.0 - 94.0 fL AO Workflow SS Monocyte, Absolute 0.6 103/mcL Invalid Interpretation Code 0.2 - 1.0 10^3/mcL AO Workflow SS Monocytes/100 WBC (Bld) 5.7 % Invalid Interpretation Code 1.7 - 13.0 % AO Workflow SS Neutrophil, Absolute 9.1 103/mcL Invalid Interpretation Code 2.9 - 6.2 10^3/mcL AO Workflow SS Neutrophils/100 WBC (Bld) 81.1 % Invalid Interpretation Code 37.0 - 80.0 % AO Workflow SS Platelet mean volume (Bld) [Entitic vol] 7.3 fL Invalid Interpretation Code 7.4 - 10.4 fL AO Workflow SS Platelets (Bld) [#/Vol] 370 103/mcL Invalid Interpretation Code 130 - 400 10^3/mcL AO Workflow SS RBC (Bld) [#/Vol] 3.95 106/mcL Invalid Interpretation Code 4.20 - 5.40 10^6/mcL AO Workflow SS WBC (Bld) [#/Vol] 11.2 103/mcL Invalid Interpretation Code 4.6 - 10.8 10^3/mcL AO Workflow SS LABORATORYOrdered By: SYSTEM SYSTEM on 09-14-2022 Glucose [Mass/Vol] 106 mg/dL Invalid Interpretation Code 70 - 140 mg/dL AO ADM SS LABORATORYOrdered By: Getachew Tang on 05-19-2022 Amphetamines Screen Ql (U) Negative (05/19/22 2:43 PM) Invalid Interpretation Code AO Manual Urine SS Barbiturates Screen Ql (U) Negative (05/19/22 2:43 PM) Invalid Interpretation Code AO Manual Urine SS Benzodiazepines Ql (U) Negative (05/19/22 2:43 PM) Invalid Interpretation Code AO Manual Urine SS Benzoylecgonine Screen Ql (U) Negative (05/19/22 2:43 PM) Invalid Interpretation Code AO Manual Urine SS Cannabinoids tested Screen Nom (U) Negative (05/19/22 2:43 PM) Invalid Interpretation Code AO Manual Urine SS Methadone Screen Ql (U) Negative (05/19/22 2:43 PM) Invalid Interpretation Code AO Manual Urine SS Opiates Screen Ql (U) Negative (05/19/22 2:43 PM) Invalid Interpretation Code AO Manual Urine SS Phencyclidine Ql (U) Negative (05/19/22 2:43 PM) Invalid Interpretation Code AO Manual Urine SS Tricyclic antidepressants Screen Ql (U) Negative (05/19/22 2:43 PM) Invalid Interpretation Code AO Manual Urine SS Basophil, Absolute 0.0 103/mcL Invalid Interpretation Code 0.0 - 0.2 10^3/mcL AO Workflow SS Basophils/100 WBC (Bld) 0.2 % Invalid Interpretation Code 0.0 - 2.5 % AO Workflow SS Eosinophil, Absolute 0.0 103/mcL Invalid Interpretation Code 0.0 - 0.4 10^3/mcL AO Workflow SS Eosinophils/100 WBC (Bld) 0.3 % Invalid Interpretation Code 0.0 - 7.0 % AO Workflow SS Erythrocyte distribution width (RBC) [Ratio] 13.6 % Invalid Interpretation Code 11.5 - 14.5 % AO Workflow SS Hematocrit (Bld) [Volume fraction] 38.6 % Invalid Interpretation Code 37.0 - 47.0 % AO Workflow SS Hemoglobin (Bld) [Mass/Vol] 13.1 G/dL Invalid Interpretation Code 12.0 - 16.0 G/dL AO Workflow SS HIV 1 p24 Ab Ql (S) Non-Reactive (05/19/22 2:38 PM) Invalid Interpretation Code Non-Reactive AO Rapid Testing SS HIV 1 p24 Ab Ql (S) Non-Reactive Invalid Interpretation Code AO Rapid Testing SS HIV 1+2 Ab IA Ql Non-Reactive Invalid Interpretation Code AO Rapid Testing SS HIV 1+2 Ab IA.rapid Ql (Unsp spec) Non-Reactive (05/19/22 2:38 PM) Invalid Interpretation Code Non-Reactive AO Rapid Testing SS Lymphocyte, Absolute 1.4 103/mcL Invalid Interpretation Code 0.8 - 3.9 10^3/mcL AO Workflow SS Lymphocytes/100 WBC (Bld) 14.2 % Invalid Interpretation Code 10.0 - 50.0 % AO Workflow SS MCH (RBC) [Entitic mass] 30.4 pg Invalid Interpretation Code 27.0 - 31.2 pg AO Workflow SS MCHC 33.9 G/dL Invalid Interpretation Code 33.0 - 37.0 G/dL AO Workflow SS MCV (RBC) [Entitic vol] 89.4 fL Invalid Interpretation Code 80.0 - 94.0 fL AO Workflow SS Monocyte, Absolute 0.6 103/mcL Invalid Interpretation Code 0.2 - 1.0 10^3/mcL AO Workflow SS Monocytes/100 WBC (Bld) 5.6 % Invalid Interpretation Code 1.7 - 13.0 % AO Workflow SS Neutrophil, Absolute 7.9 103/mcL Invalid Interpretation Code 2.9 - 6.2 10^3/mcL AO Workflow SS Neutrophils/100 WBC (Bld) 79.7 % Invalid Interpretation Code 37.0 - 80.0 % AO Workflow SS Platelet mean volume (Bld) [Entitic vol] 7.7 fL Invalid Interpretation Code 7.4 - 10.4 fL AO Workflow SS Platelets (Bld) [#/Vol] 291 103/mcL Invalid Interpretation Code 130 - 400 10^3/mcL AO Workflow SS RBC (Bld) [#/Vol] 4.31 106/mcL Invalid Interpretation Code 4.20 - 5.40 10^6/mcL AO Workflow SS WBC (Bld) [#/Vol] 10.0 103/mcL Invalid Interpretation Code 4.6 - 10.8 10^3/mcL AO Workflow SS LABORATORYOrdered By: Stacie Guillory on 05-19-2022 ABO/Rh Interp Positive Invalid Interpretation Code AO BB SS Antibody Screen Gel Negative ABSC (05/19/22 2:38 PM) Invalid Interpretation Code AO BB SS LABORATORYOrdered By: SYSTEM SYSTEM on 05-19-2022 HBV surface Ag IA Ql Non-Reactive (05/19/22 2:38 PM) Invalid Interpretation Code Non-Reactive AH ADM SS LABORATORYOrdered By: Baljeet Ramon on 05-19-2022 HCV Ab IA Ql Non-Reactive (05/19/22 2:38 PM) Invalid Interpretation Code Non-Reactive AH ADM SS HCV Ab IA Ql Nonreactive: Samples with a value < 0.80 are considered nonreactive (negative) for antibodies to HCV.A negative test result does not exclude the possibility of exposure to or infection with HCV. HCV antibodies may be undetectable in some stages of the infection and in some clinical conditions. Invalid Interpretation Code AH Chemistry S LABORATORYOrdered By: Stacie Guillory on 06-11-2021 ADMITTED TO INTENSIVE CARE UNIT FOR CONDITION OF INTEREST:FIND:PT:^PATIE NT:ORD: No (06/11/21 3:50 PM) Invalid Interpretation Code AO Auto Urine SS EMPLOYED IN A HEALTHCARE SETTING:FIND:PT:^PATIEN T:ORD: No (06/11/21 3:50 PM) Invalid Interpretation Code AO Auto Urine SS FIRST TEST FOR CONDITION OF INTEREST:FIND:PT:^PATIE NT:ORD: Yes (06/11/21 3:50 PM) Invalid Interpretation Code AO Auto Urine SS HAS SYMPTOMS RELATED TO CONDITION OF INTEREST:FIND:PT:^VANITA NT:ORD: Yes (06/11/21 3:50 PM) Invalid Interpretation Code AO Auto Urine SS Illness or injury onset date and time [id number] Invalid Interpretation Code AO Auto Urine SS Patient was hospitalized because of this condition No (06/11/21 3:50 PM) Invalid Interpretation Code AO Auto Urine SS status Not (06/11/21 3:50 PM) Invalid Interpretation Code AO Auto U[facility]FIND:PT:^MELLISSA T:ORD: No (06/11/21 3:50 PM) Invalid Interpretation Code AO Auto Urine SS SARS-CoV-2 (COVID-19) RNA JOSE+probe Ql (Resp) Positive *ABN* (06/11/21 3:50 PM) Invalid Interpretation Code Negative AO Auto Urine SS SARS-CoV-2 (COVID-19) RNA JOSE+probe Ql (Unsp spec) Positive results are indicative of the presence of SARS-CoV-2 RNA; clinical correlation with patient history and other diagnostic information is necessary to determine patient infection status. Positive results do not rule out bacterial infection or co-infection with other viruses. The agent detected may not be the definite cause of disease. Laboratories within the [place] and its territories are required to report all positive results to the appropriate public health authorities.Detection of analyte target(s) does not imply that the corresponding virus(es) are infectious or are the causative agents for clinical symptoms.There is a risk of false positive values resulting from cross-contamination by target organisms, their nucleic acids or amplified product, or from non-specific signals in the assay.[facility] SARS-CoV-2 Assay is a Real-Time reverse-transcriptase polymerase chain reaction (RT-PCR) based qualitative in vitro diagnostic test intended for the qualitative detection of nucleic acid from the SARS-CoV-2 in nasopharyngeal swab specimens collected from individuals suspected of COVID-19 by their healthcare provider. Testing is limited to laboratories certified under the Clinical Laboratory Improvement Amendments of 1988 (CLIA), 42 U.S.C. 263a, to perform moderate and high complexity tests. Invalid Interpretation Code AO Auto Urine SS COVID PCR, SCREENING [facility] 12-05-2019 CORONAVIRUS 2019,PCR NOT DETECTED Normal Not Detected [facility] Comment on above: Result Comment: This assay is designed to detect the N, ORF1ab and/or S genes of SARS-CoV-2 via nucleic acid amplification. A Negative (NOT DETECTED) result does not preclude 2019-nCoV infection since the adequacy of sample collection and/or low viral burden may result in presence of viral nucleic acids below the clinical sensitivity of this test method. Negative (NOT DETECTED) result should not be used as the sole basis for treatment or other patient management decisions. Rather negative results should be combined with clinical observations, patient history, and epidemiological information to make patient management decisions. Fact sheet for providers: https://www.fda.gov/media/495590/download Fact sheet for patients: https://www.fda.gov/media/531827/download This test has received FDA Emergency Use Authorization (EUA) and has been verified by [facility] ([facility]). This test is only authorized for the duration of time that circumstances exist to justify the authorization of the emergency use of in vitro diagnostic tests for the detection of SARS-CoV-2 virus and/or diagnosis of COVID-19 infection under section 564(b)(1) of the Act, 21 U.S.C. 360bbb-3(b)(1), unless the authorization is terminated or revoked sooner. [facility] ([facility]) is certified under CLIA-88 as qualified to perform high complexity testing. This tests analytical performance characteristics have been determined by [facility]. Testing is performed at [facility] is located at [address] [place] [address] (CLIA License #[id number], CAP #[id number]). Performed By: #### C VCLA #### [facility] [address] [place] [address] COVID PCR, SCREENING [facility]GREG ATEon 12-04-2019 Lab Specimen Source Nasal, Nasopharyngeal Normal [facility] Comment on above: Performed By: #### C VCLA #### [facility] [address] [place] [address] CR Spine Lumbosacral 2 or 3 Viewson 07-21-2019 CR Spine Lumbosacral 2 or 3 Views Patient Name: CYDNEY RAMÍREZ Diagnostic Radiology Exam Date/Time 07/21/2019 19:54:42 EST Exam CR Spine Lumbosacral 2 or 3 Views Ordering Physician MD COLEY VIJAY Accession Number [id number] CPT4 Codes 12773 () Reason For Exam back pain Report LUMBAR SPINE: CLINICAL INDICATION: Pain. TECHNIQUE: AP, lateral and coned-down L5-S1. COMPARISON: None. FINDINGS: Five lumbar vertebrae are present. The lumbar vertebrae demonstrate no wedge fracture or compression deformity. No significant spurring or intervertebral disc space narrowing is noted. There is no spondylolisthesis. The pedicles and sacroiliac joints are unremarkable. No abnormal soft tissue calcifications are noted. IMPRESSION: Normal lumbar spine. Report Dictated on Final Dictating Physician: MD SO NICHOLAS Signed Date and Time: 07/21/2019 8:10 pm Signed by: MD SO NICHOLAS Transcribed Date and Time: 07/21/2019 8:11 Normal [facility] CR Spine Thoracic Minimum 4 Viewson 07-21-2019 CR Spine Thoracic Minimum 4 Views Patient Name: CYDNEY RAMÍREZ Diagnostic Radiology Exam Date/Time 07/21/2019 19:54:42 EST Exam CR Spine Thoracic Minimum 4 Views Ordering Physician MD COLEY VIJAY Accession Number [id number] CPT4 Codes 25892 () Reason For Exam injury Report THORACIC SPINE: CLINICAL INDICATION: Back pain. TECHNIQUE: AP, lateral and swimmers COMPARISON: None. FINDINGS: Noted the upper thoracic spine is not well-seen on the lateral or swimmer's views due to overlapping soft tissue structures. The thoracic vertebrae demonstrate no evidence for wedge fracture or compression deformity. No significant spurring or intervertebral disc space narrowing is noted. No paraspinal soft tissue mass is noted. IMPRESSION: No definite fracture or spondylolisthesis given the limitations of this study. Report Dictated on Final Dictating Physician: MD SO NICHOLAS Signed Date and Time: 07/21/2019 8:11 pm Signed by: MD SO NICHOLAS Transcribed Date and Time: 07/21/2019 8:12 Normal [facility] XR LUMBAR SPINE (2-3 VIEWS)o n 07-21-2019 Patient Name: CYDNEY RAMÍREZ ---Diagnostic Radiology--- Exam Date/Time 07/21/2019 19:54:42 EST Exam CR Spine Lumbosacral 2 or 3 Views Ordering Physician MD COLEY VIJAY Accession Number [id number] CPT4 Codes 36533 () Reason For Exam back pain Report LUMBAR SPINE: CLINICAL INDICATION: Pain. TECHNIQUE: AP, lateral and coned-down L5-S1. COMPARISON: None. FINDINGS: Five lumbar vertebrae are present. The lumbar vertebrae demonstrate no wedge fracture or compression deformity. No significant spurring or intervertebral disc space narrowing is noted. There is no spondylolisthesis. The pedicles and sacroiliac joints are unremarkable. No abnormal soft tissue calcifications are noted. IMPRESSION: Normal lumbar spine. Report Dictated on --- Final --- Dictating Physician: MD SO NICHOLAS Signed Date and Time: 07/21/2019 8:10 pm Signed by: MD SO NICHOLAS Transcribed Date and Time: 07/21/2019 8:11 [facility] Work Phone: [facility] Incoming Radiology Results From [facility] - 07/21/2019 8:11 PM EST Patient Name: CYDNEY RAMÍREZ ---Diagnostic Radiology--- Exam Date/Time 07/21/2019 19:54:42 EST Exam CR Spine Lumbosacral 2 or 3 Views Ordering Physician MD COLEY VIJAY Accession Number [id number] CPT4 Codes 98410 () Reason For Exam back pain Report LUMBAR SPINE: CLINICAL INDICATION: Pain. TECHNIQUE: AP, lateral and coned-down L5-S1. COMPARISON: None. FINDINGS: Five lumbar vertebrae are present. The lumbar vertebrae demonstrate no wedge fracture or compression deformity. No significant spurring or intervertebral disc space narrowing is noted. There is no spondylolisthesis. The pedicles and sacroiliac joints are unremarkable. No abnormal soft tissue calcifications are noted. IMPRESSION: Normal lumbar spine. Report Dictated on --- Final --- Dictating Physician: MD SO NICHOLAS Signed Date and Time: 07/21/2019 8:10 pm Signed by: MD SO NICHOLAS Transcribed Date and Time: 07/21/2019 8:11 [facility] Work Phone: XR THORACIC SPINE (MIN 4 VIE WS)on 07-21-2019 Patient Name: CYDNEY RAMÍREZ ---Diagnostic Radiology--- Exam Date/Time 07/21/2019 19:54:42 EST Exam CR Spine Thoracic Minimum 4 Views Ordering Physician MD COLEY VIJAY Accession Number [id number] CPT4 Codes 26406 () Reason For Exam injury Report THORACIC SPINE: CLINICAL INDICATION: Back pain. TECHNIQUE: AP, lateral and swimmers COMPARISON: None. FINDINGS: Noted the upper thoracic spine is not well-seen on the lateral or swimmer's views due to overlapping soft tissue structures. The thoracic vertebrae demonstrate no evidence for wedge fracture or compression deformity. No significant spurring or intervertebral disc space narrowing is noted. No paraspinal soft tissue mass is noted. IMPRESSION: No definite fracture or spondylolisthesis given the limitations of this study. Report Dictated on --- Final --- Dictating Physician: MD SO NICHOLAS Signed Date and Time: 07/21/2019 8:11 pm Signed by: MD SO NICHOLAS Transcribed Date and Time: 07/21/2019 8:12 [facility] Work Phone: [facility] Incoming Radiology Results From [facility] - 07/21/2019 8:12 PM EST Patient Name: CYDNEY RAMÍREZ ---Diagnostic Radiology--- Exam Date/Time 07/21/2019 19:54:42 EST Exam CR Spine Thoracic Minimum 4 Views Ordering Physician MD COLEY VIJAY Accession Number [id number] CPT4 Codes 63850 () Reason For Exam injury Report THORACIC SPINE: CLINICAL INDICATION: Back pain. TECHNIQUE: AP, lateral and swimmers COMPARISON: None. FINDINGS: Noted the upper thoracic spine is not well-seen on the lateral or swimmer's views due to overlapping soft tissue structures. The thoracic vertebrae demonstrate no evidence for wedge fracture or compression deformity. No significant spurring or intervertebral disc space narrowing is noted. No paraspinal soft tissue mass is noted. IMPRESSION: No definite fracture or spondylolisthesis given the limitations of this study. Report Dictated on --- Final --- Dictating Physician: MD SO NICHOLAS Signed Date and Time: 07/21/2019 8:11 pm Signed by: MD SO NICHOLAS Transcribed Date and Time: 07/21/2019 8:12 [facility] Work Phone: Vital Signs Date Time Vital Sign Value Performing Clinician Facility 12-31-2024 09:41-0400 Body height 167.64 cm Jenniffer Perea CONCESSION ATTENDANT-C Work Phone: [facility] 12-31-2024 09:41-0400 Body mass index (BMI) [Ratio] 34.4 kg/m2 Jenniffer Perea CONCESSION ATTENDANT-C Work Phone: [facility] 12-31-2024 09:41-0400 Body weight 96.67 kg Jenniffer Perea CONCESSION ATTENDANT-C Work Phone: [facility] 12-31-2024 09:41-0400 Diastolic blood pressure 68 mm[Hg] Jenniffer Perea CONCESSION ATTENDANT-C Work Phone: [facility] 12-31-2024 09:41-0400 Systolic blood pressure 99 mm[Hg] Jenniffer Perea CONCESSION ATTENDANT-C Work Phone: [facility] 12-25-2024 14:09-0400 Body temperature 97.9 [degF] Jenniffer Perea CONCESSION ATTENDANT-C Work Phone: [facility] 12-25-2024 14:09-0400 Respiratory rate 17 /min Jenniffer Perea CONCESSION ATTENDANT-C Work Phone: [facility] 12-25-2024 14:09-0400 SaO2% (BldA) [Mass fraction] 97 % Jenniffer Perea CONCESSION ATTENDANT-C Work Phone: [facility] 12-25-2024 14:08-0400 Diastolic blood pressure 76 mm[Hg] Jenniffer Perea CONCESSION ATTENDANT-C Work Phone: [facility] 12-25-2024 14:08-0400 Heart rate 107 /min Jenniffer Perea CONCESSION ATTENDANT-C Work Phone: [facility] 12-25-2024 14:08-0400 Systolic blood pressure 121 mm[Hg] Jenniffer Perea CONCESSION ATTENDANT-C Work Phone: [facility] 12-25-2024 13:53-0400 Body height 167.64 cm Jenniffer Perea CONCESSION ATTENDANT-C Work Phone: [facility] 12-25-2024 13:53-0400 Body mass index (BMI) [Ratio] 34.3 kg/m2 Jenniffer Perea CONCESSION ATTENDANT-C Work Phone: [facility] 12-25-2024 13:53-0400 Body weight 96.61 kg Jenniffer Perea CONCESSION ATTENDANT-C Work Phone: [facility] 12-17-2024 09:39-0400 Body height 167.64 cm Jenniffer Perea CONCESSION ATTENDANT-C Work Phone: [facility] 12-17-2024 09:32-0400 Body mass index (BMI) [Ratio] 34.5 kg/m2 Jenniffer Perea CONCESSION ATTENDANT-C Work Phone: [facility] 12-17-2024 09:32-0400 Body weight 97.18 kg Jenniffer Perea CONCESSION ATTENDANT-C Work Phone: [facility] 12-17-2024 09:32-0400 Diastolic blood pressure 80 mm[Hg] Jenniffer Perea CONCESSION ATTENDANT-C Work Phone: [facility] 12-17-2024 09:32-0400 Systolic blood pressure 104 mm[Hg] Jenniffer Perea CONCESSION ATTENDANT-C Work Phone: [facility] 12-13-2024 14:10-0400 Heart rate 101 /min Jenniffer Perea CONCESSION ATTENDANT-C Work Phone: [facility] 12-13-2024 14:10-0400 SaO2% (BldA) [Mass fraction] 94 % Jenniffer Perea CONCESSION ATTENDANT-C Work Phone: [facility] 12-13-2024 14:08-0400 Diastolic blood pressure 67 mm[Hg] Jenniffer Perea CONCESSION ATTENDANT-C Work Phone: [facility] 12-13-2024 14:08-0400 Systolic blood pressure 117 mm[Hg] Jenniffer Perea CONCESSION ATTENDANT-C Work Phone: [facility] 12-03-2024 09:11-0400 Body height 167.64 cm Jenniffer Perea CONCESSION ATTENDANT-C Work Phone: [facility] 12-03-2024 09:10-0400 Body mass index (BMI) [Ratio] 34.7 kg/m2 Jenniffer Perea CONCESSION ATTENDANT-C Work Phone: [facility] 12-03-2024 09:10-0400 Body weight 97.52 kg Jenniffer Perea CONCESSION ATTENDANT-C Work Phone: [facility] 12-03-2024 09:10-0400 Diastolic blood pressure 86 mm[Hg] Jenniffer Perea CONCESSION ATTENDANT-C Work Phone: [facility] 12-03-2024 09:10-0400 Systolic blood pressure 127 mm[Hg] Jenniffer Perea CONCESSION ATTENDANT-C Work Phone: [facility] 11-19-2024 08:30-0400 Body height 167.64 cm Jenniffer Perea CONCESSION ATTENDANT-C Work Phone: [facility] 11-19-2024 08:30-0400 Body mass index (BMI) [Ratio] 34.6 kg/m2 Jenniffer Perea CONCESSION ATTENDANT-C Work Phone: [facility] 11-19-2024 08:30-0400 Body weight 97.23 kg Jenniffer Perea CONCESSION ATTENDANT-C Work Phone: [facility] 11-19-2024 08:30-0400 Diastolic blood pressure 64 mm[Hg] Jenniffer Perea CONCESSION ATTENDANT-C Work Phone: [facility] 11-19-2024 08:30-0400 Systolic blood pressure 102 mm[Hg] Jenniffer Perea CONCESSION ATTENDANT-C Work Phone: [facility] 11-06-2024 09:54-0400 Body height 167.64 cm Jenniffer Perea CONCESSION ATTENDANT-C Work Phone: [facility] 11-06-2024 09:54-0400 Body mass index (BMI) [Ratio] 34.5 kg/m2 Jenniffer Perea CONCESSION ATTENDANT-C Work Phone: [facility] 11-06-2024 09:54-0400 Body weight 97.12 kg Jenniffer Perea CONCESSION ATTENDANT-C Work Phone: [facility] 11-06-2024 09:54-0400 Diastolic blood pressure 51 mm[Hg] Jenniffer Perea CONCESSION ATTENDANT-C Work Phone: [facility] 11-06-2024 09:54-0400 Systolic blood pressure 103 mm[Hg] Jenniffer Perea CONCESSION ATTENDANT-C Work Phone: [facility] 10-29-2024 00:08-0400 Respiratory rate 20 /min Jenniffer Perea CONCESSION ATTENDANT-C Work Phone: [facility] 10-28-2024 23:58-0400 Body temperature 98.7 [degF] Jenniffer Perea CONCESSION ATTENDANT-C Work Phone: [facility] 10-28-2024 23:58-0400 Diastolic blood pressure 62 mm[Hg] Jenniffer Perea CONCESSION ATTENDANT-C Work Phone: [facility] 10-28-2024 23:58-0400 Heart rate 95 /min Jenniffer Perea CONCESSION ATTENDANT-C Work Phone: [facility] 10-28-2024 23:58-0400 SaO2% (BldA) [Mass fraction] 96 % Jenniffer Perea CONCESSION ATTENDANT-C Work Phone: [facility] 10-28-2024 23:58-0400 Systolic blood pressure 118 mm[Hg] Jenniffer Perea CONCESSION ATTENDANT-C Work Phone: [facility] 10-28-2024 23:52-0400 Body height 167.64 cm Jenniffernorman Perea CONCESSION ATTENDANT-C Work Phone: [facility] 10-28-2024 23:52-0400 Body mass index (BMI) [Ratio] 34.4 kg/m2 Jenniffernorman Perea CONCESSION ATTENDANT-C Work Phone: [facility] 10-28-2024 23:52-0400 Body weight 96.79 kg Jenniffer Perea CONCESSION ATTENDANT-C Work Phone: [facility] 10-22-2024 12:58-0400 Body height 167.64 cm Jenniffer Warnerson CONCESSION ATTENDANT-C Work Phone: [facility] 10-22-2024 12:58-0400 Body mass index (BMI) [Ratio] 33.7 kg/m2 Jenniffer Perea CONCESSION ATTENDANT-C Work Phone: [facility] 10-22-2024 12:58-0400 Body weight 94.85 kg Jenniffer Eliazar CONCESSION ATTENDANT-C Work Phone: [facility] 10-22-2024 12:58-0400 Diastolic blood pressure 66 mm[Hg] Jenniffer Perea CONCESSION ATTENDANT-C Work Phone: [facility] 10-22-2024 12:58-0400 Systolic blood pressure 98 mm[Hg] Jenniffer Perea CONCESSION ATTENDANT-C Work Phone: [facility] 09-24-2024 09:00-0400 Body mass index (BMI) [Ratio] 32.6 kg/m2 Jenniffer Perea CONCESSION ATTENDANT-C Work Phone: [facility] 09-24-2024 09:00-0400 Body weight 91.79 kg Jenniffer Perea CONCESSION ATTENDANT-C Work Phone: [facility] 09-24-2024 09:00-0400 Diastolic blood pressure 63 mm[Hg] Jenniffer Perea CONCESSION ATTENDANT-C Work Phone: [facility] 09-24-2024 09:00-0400 Systolic blood pressure 100 mm[Hg] Jenniffer Perea CONCESSION ATTENDANT-C Work Phone: [facility] 08-27-2024 14:38-0400 Body mass index (BMI) [Ratio] 32.4 kg/m2 Jenniffer Perea CONCESSION ATTENDANT-C Work Phone: [facility] 08-27-2024 14:38-0400 Body weight 91.17 kg Jenniffer Perea CONCESSION ATTENDANT-C Work Phone: [facility] 08-27-2024 14:38-0400 Diastolic blood pressure 77 mm[Hg] Jenniffer Perea CONCESSION ATTENDANT-C Work Phone: [facility] 08-27-2024 14:38-0400 Systolic blood pressure 115 mm[Hg] Jenniffer Perea CONCESSION ATTENDANT-C Work Phone: [facility] 07-30-2024 13:15-0500 Body mass index (BMI) [Ratio] 31 kg/m2 Jenniffer Perea CONCESSION ATTENDANT-C Work Phone: [facility] 07-30-2024 13:15-0500 Body weight 87.2 kg Jenniffer Perea CONCESSION ATTENDANT-C Work Phone: [facility] 07-30-2024 13:15-0500 Diastolic blood pressure 77 mm[Hg] Jenniffer Perea CONCESSION ATTENDANT-C Work Phone: [facility] 07-30-2024 13:15-0500 Systolic blood pressure 124 mm[Hg] Jenniffer Perea CONCESSION ATTENDANT-C Work Phone: [facility] 07-21-2024 21:03-0500 Body temperature 96.1 [degF] Jenniffer Perea CONCESSION ATTENDANT-C Work Phone: [facility] 07-21-2024 21:03-0500 Diastolic blood pressure 67 mm[Hg] Jenniffer Perea CONCESSION ATTENDANT-C Work Phone: [facility] 07-21-2024 21:03-0500 Heart rate 108 /min Jenniffer Perea CONCESSION ATTENDANT-C Work Phone: [facility] 07-21-2024 21:03-0500 Respiratory rate 16 /min Jenniffer Perea CONCESSION ATTENDANT-C Work Phone: [facility] 07-21-2024 21:03-0500 SaO2% (BldA) [Mass fraction] 100 % Jenniffer Perea CONCESSION ATTENDANT-C Work Phone: [facility] 07-21-2024 21:03-0500 Systolic blood pressure 106 mm[Hg] Jenniffer Perea CONCESSION ATTENDANT-C Work Phone: [facility] 07-21-2024 18:34-0500 Body mass index (BMI) [Ratio] 31.6 kg/m2 Jenniffer Perea CONCESSION ATTENDANT-C Work Phone: [facility] 07-21-2024 18:34-0500 Body weight 88.99 kg Jenniffer Perea CONCESSION ATTENDANT-C Work Phone: [facility] 07-02-2024 10:17-0500 Body mass index (BMI) [Ratio] 30.4 kg/m2 Jenniffer Perea CONCESSION ATTENDANT-C Work Phone: [facility] 07-02-2024 10:17-0500 Body weight 85.72 kg Jenniffer Perea CONCESSION ATTENDANT-C Work Phone: [facility] 07-02-2024 10:17-0500 Diastolic blood pressure 76 mm[Hg] Jenniffer Perea CONCESSION ATTENDANT-C Work Phone: [facility] 07-02-2024 10:17-0500 Systolic blood pressure 112 mm[Hg] Jenniffer Perea CONCESSION ATTENDANT-C Work Phone: [facility] 09-29-2023 11:06-0400 Body temperature 97.2 [degF] Radha LockwoodFlixster Work Phone: [facility] [employer] 09-29-2023 11:06-0400 Diastolic blood pressure 73 mm[Hg] Radha Tyler DO Work Phone: [facility] [employer] 09-29-2023 11:06-0400 Heart rate 77 /min Radha giddy Phone: [facility] [employer] 09-29-2023 11:06-0400 Respiratory rate 18 /min Radha giddy Phone: [facility] [employer] 09-29-2023 11:06-0400 SaO2% (BldA) [Mass fraction] 100 % Radha giddy Phone: [facility] [employer] 09-29-2023 11:06-0400 Systolic blood pressure 104 mm[Hg] Radha giddy Phone: [facility] [employer] 09-29-2023 08:47-0400 Body height 167.6 cm Radha giddy Phone: [facility] [employer] 09-29-2023 08:47-0400 Body mass index (BMI) [Ratio] 30.34 kg/m2 Radha giddy Phone: [facility] [employer] 09-29-2023 08:47-0400 Body weight 85.28 kg Radha giddy Phone: [facility] [employer] 08-25-2023 14:52-0400 Body height 167.64 cm NOEMÍ Perea NP Work Phone: [facility] 03-14-2023 15:03-0400 Body height 167.64 cm [facility] 03-14-2023 15:03-0400 Body temperature 96.5 [degF] [facility] 03-14-2023 15:03-0400 Diastolic blood pressure 67 mm[Hg] [facility] 03-14-2023 15:03-0400 Heart rate 83 /min [facility] 03-14-2023 15:03-0400 Respiratory rate 14 /min [facility] 03-14-2023 15:03-0400 SaO2% (BldA) [Mass fraction] 98 % [facility] 03-14-2023 15:03-0400 Systolic blood pressure 104 mm[Hg] [facility] 02-04-2023 09:04-0400 Diastolic Blood Pressure Non-Invasive 64 1 MELISA ULLOA MD [facility] 02-04-2023 09:04-0400 Heart rate 66 /min MELISA ULLOA MD [facility] 02-04-2023 09:04-0400 Respiratory rate 16 /min MELISA ULLOA MD [facility] 02-04-2023 09:04-0400 Systolic Blood Pressure Non-Invasive 101 1 MELISA ULLOA MD [facility] 02-04-2023 08:45-0400 Diastolic Blood Pressure Non-Invasive 75 1 MELISA ULLOA MD [facility] 02-04-2023 08:45-0400 Heart rate 65 /min MELISA ULLOA MD [facility] 02-04-2023 08:45-0400 Respiratory rate 14 /min MELISA ULLOA MD [facility] 02-04-2023 08:45-0400 Systolic Blood Pressure Non-Invasive 112 1 MELISA ULLOA MD [facility] 02-04-2023 08:30-0400 Diastolic Blood Pressure Non-Invasive 71 1 MELISA ULLOA MD [facility] 02-04-2023 08:30-0400 Heart rate 70 /min MELISA ULLOA MD [facility] 02-04-2023 08:30-0400 Respiratory rate 15 /min MELISA ULLOA MD [facility] 02-04-2023 08:30-0400 Systolic Blood Pressure Non-Invasive 114 1 MELISA ULLOA MD [facility] 02-04-2023 07:57-0400 Body temperature 96.44 [degF] MELISA ULLOA MD [facility] 02-04-2023 07:50-0400 Respiratory Rate - Anes 20 br/min MELISA ULLOA MD [facility] 02-04-2023 07:45-0400 Respiratory Rate - Anes 20 br/min MELISA ULLOA MD [facility] 02-04-2023 07:40-0400 Respiratory Rate - Anes 18 br/min MELISA ULLOA MD [facility] 02-04-2023 07:30-0400 temperature 96.8 [degF] MELISA ULLOA MD [facility] 02-04-2023 07:25-0400 temperature 96.8 [degF] MELISA ULLOA MD [facility] 02-04-2023 07:20-0400 temperature 96.8 [degF] MELISA ULLOA MD [facility] 02-04-2023 06:23-0400 Body weight 26.7 kg/m2 MELISA ULLOA MD [facility] 02-04-2023 06:06-0400 Body height 167.6 cm MELISA ULLOA MD [facility] 02-04-2023 06:06-0400 Body temperature 95.54 [degF] MELISA ULLOA MD [facility] 02-04-2023 06:06-0400 Body weight 75 kg MELISA ULLOA MD [facility] 02-04-2023 06:06-0400 Diastolic blood pressure 71 mm[Hg] MELISA ULLOA MD [facility] 02-04-2023 06:06-0400 Heart rate 81 /min MELISA ULLOA MD [facility] 02-04-2023 06:06-0400 Systolic blood pressure 106 mm[Hg] MELISA ULLOA MD [facility] 12-10-2022 08:47-0400 Body temperature 98.6 [degF] JAXSON BEITLER [employer] [facility] 12-10-2022 08:47-0400 Diastolic Blood Pressure Non-Invasive 78 1 JAXSON BEIT[employer] [facility] 12-10-2022 08:47-0400 Heart rate 86 /min JAXSON BE[employer] [facility] 12-10-2022 08:47-0400 Respiratory rate 16 /min JAXSON BEIT[employer] [facility] 12-10-2022 08:47-0400 Systolic Blood Pressure Non-Invasive 124 1 JAXSON BE[employer] [facility] 12-10-2022 00:08-0400 Body temperature 97.7 [degF] JAXSON BE[employer] [facility] 12-10-2022 00:08-0400 Diastolic Blood Pressure Non-Invasive 78 1 JAXSON [employer] [facility] 12-10-2022 00:08-0400 Heart rate 90 /min J[employer]SON [employer] [facility] 12-10-2022 00:08-0400 Reason For Taking VItal Signs JAXSON [employer] [facility] 12-10-2022 00:08-0400 Respiratory rate 18 /min JAXSON BE[employer] [facility] 12-10-2022 00:08-0400 Systolic Blood Pressure Non-Invasive 125 1 JAXSON [employer] [facility] 12-09-2022 15:45-0400 Body temperature 97.7 [degF] JAXSON BEIT[employer] [facility] 12-09-2022 15:45-0400 Diastolic Blood Pressure Non-Invasive 75 1 JAXSON BE[employer] [facility] 12-09-2022 15:45-0400 Heart rate 81 /min JAXSON BE[employer] [facility] 12-09-2022 15:45-0400 Reason For Taking VItal Signs JAXSON BE[employer] [facility] 12-09-2022 15:45-0400 Respiratory rate 16 /min JAXSON BEITL[employer] [facility] 12-09-2022 15:45-0400 Systolic Blood Pressure Non-Invasive 124 1 JAXSON [employer] [facility] 12-08-2022 22:42-0400 Body height 167.6 cm JAXSON BE[employer] [facility] 12-08-2022 22:42-0400 Body weight 82.5 kg JAXSON [employer] [facility] 12-08-2022 22:42-0400 Body weight 29.37 kg/m2 JAXSON BEIT[employer] [facility] 12-08-2022 22:30-0400 Body temperature 98.06 [degF] JAXSON BEITL[employer] [facility] 12-08-2022 22:28-0400 Body height 167.6 cm JAXSON BEITLER [employer] [facility] 12-08-2022 22:28-0400 Body weight 82.5 kg JAXSON BEITLER [employer] [facility] 12-08-2022 22:28-0400 Body weight 29.37 kg/m2 JAXSON BEITLER [employer] [facility] 12-08-2022 03:43-0400 Body height 167.5 cm LILLI LEE MD [facility] 12-08-2022 03:43-0400 Body temperature 97.7 [degF] LILLI LEE MD [facility] 12-08-2022 03:43-0400 Body weight 82.7 kg LILLI LEE MD [facility] 12-08-2022 03:43-0400 Body weight 29.48 kg/m2 LILLI LEE MD [facility] 12-08-2022 03:43-0400 Diastolic Blood Pressure Non-Invasive 69 1 LILLI LEE MD [facility] 12-08-2022 03:43-0400 Heart rate 89 /min LILLI LEE MD [facility] 12-08-2022 03:43-0400 Reason For Taking VItal Signs LILLI LEE MD [facility] 12-08-2022 03:43-0400 Respiratory rate 18 /min LILLI LEE MD [facility] 12-08-2022 03:43-0400 Systolic Blood Pressure Non-Invasive 116 1 LILLI LEE MD [facility] 12-07-2022 03:17-0400 Body temperature 96.98 [degF] MELISA ULLOA MD [facility] 12-07-2022 03:17-0400 Diastolic Blood Pressure Non-Invasive 68 1 MELISA ULLOA MD [facility] 12-07-2022 03:17-0400 Respiratory rate 18 /min MELISA ULLOA MD [facility] 12-07-2022 03:17-0400 Systolic Blood Pressure Non-Invasive 116 1 MELISA ULLOA MD [facility] 12-07-2022 02:55-0400 Diastolic Blood Pressure Non-Invasive 76 1 MELISA ULLOA MD [facility] 12-07-2022 02:55-0400 Heart rate 82 /min MELISA ULLOA MD [facility] 12-07-2022 02:55-0400 Systolic Blood Pressure Non-Invasive 116 1 MELISA ULLOA MD [facility] 12-07-2022 02:37-0400 Body height 167.6 cm MELISA ULLOA MD [facility] 12-07-2022 02:37-0400 Body temperature 96.98 [degF] MELISA ULLOA MD [facility] 12-07-2022 02:37-0400 Body weight 83 kg MELISA ULLOA MD [facility] 12-07-2022 02:37-0400 Body weight 29.55 kg/m2 MELISA ULLOA MD [facility] 12-07-2022 02:37-0400 Diastolic Blood Pressure Non-Invasive 85 1 MELISA ULLOA MD [facility] 12-07-2022 02:37-0400 Heart rate 84 /min MELISA ULLOA MD [facility] 12-07-2022 02:37-0400 Reason For Taking VItal Signs MELISA ULLOA MD [facility] 12-07-2022 02:37-0400 Respiratory rate 18 /min MELISA ULLOA MD [facility] 12-07-2022 02:37-0400 Systolic Blood Pressure Non-Invasive 142 1 MELISA ULLOA MD [facility] 07-11-2022 18:57-0500 Body temperature 98.96 [degF] KEVIN HARDIN MD [facility] 07-11-2022 18:57-0500 Diastolic Blood Pressure Non-Invasive 66 1 KEVIN HARDIN MD [facility] 07-11-2022 18:57-0500 Heart rate 99 /min KEVIN HARDIN MD [facility] 07-11-2022 18:57-0500 Systolic Blood Pressure Non-Invasive 113 1 KEVIN HARDIN MD [facility] 07-21-2019 19:17-0500 BMI (Body Mass Index) 21.63 kg/m2 Quang Adusumilli [facility] Work Phone: 07-21-2019 19:17-0500 Body Temperature 98.71 [degF] Quang Adusumilli [facility] Work Phone: 07-21-2019 19:17-0500 Body weight 60.78 kg Quang Adusumilli [facility] Work Phone: 07-21-2019 19:17-0500 BP Diastolic 83 mm[Hg] Quang Adusumilli [facility] Work Phone: 07-21-2019 19:17-0500 BP Systolic 135 mm[Hg] Quang Adusumilli [facility] Work Phone: 07-21-2019 19:17-0500 Height 167.6 cm Quang Adusumilli [facility] Work Phone: 07-21-2019 19:17-0500 Pulse (Heart Rate) 98 /min Quang Adusumilli [facility] Work Phone: 07-21-2019 19:17-0500 Pulse Oximetry 100 % Quang Adusumilli [facility] Work Phone: 07-21-2019 19:17-0500 Respiratory Rate 18 /min Quang Adusumilli [facility] Work Phone: Encounters Encounter Date Encounter Type Care Provider Facility Start: 12-31-2024 Patient encounter procedure Gonzalez Dunne CNM -Laboratory Specimen Work Phone: Start: 12-31-2024 End: 12-31-2024 ambulatory Jenniffer Perea CONCESSION ATTENDANT Facility[place] Start: 12-31-2024 End: 12-31-2024 Patient encounter procedure Gonzalez Dunne CNM -[facility] Work Phone: Start: 12-25-2024 ambulatory Lashay [facility]cd[facility] Start: 12-25-2024 Non-patient / Non-visit Dr. Lashay Fields DO -[facility] Start: 12-25-2024 End: 12-25-[address] [facility] Work Phone: Start: 12-25-2024 End: 12-25-2024 ambulatory Jenniffer Perea CONCESSION ATTENDANT-C Work Phone: -[facility] Start: 12-17-2024 End: 12-17-2024 Patient encounter procedure Malathi Magdaleno NP-C -[facility] Work Phone: Start: 12-17-2024 End: 12-17-2024 ambulatory Jenniffer Perea CONCESSION ATTENDANT-C Work Phone: -[facility] Start: 12-13-2024 Non-patient / Non-visit Dr. Sophia Ellison MD -[facility] Start: 12-13-2024 End: 12-13-2024 ambulatory Jenniffer Perea CONCESSION ATTENDANT-C Work Phone: -[facility] Start: 12-13-2024 End: 12-13-[address] [facility] Work Phone: Start: 12-03-2024 End: 12-03-[address] Lashay Fields DO -[facility] Work Phone: Start: 12-03-2024 End: 12-03-2024 ambulatory Jenniffer Perea CONCESSION ATTENDANT-C Work Phone: [facility] Work Phone: Start: 11-19-2024 End: 11-19-2024 Patient encounter procedure Malathi Magdaleno CONCESSION ATTENDANT-C -[facility] Work Phone: Start: 11-19-2024 End: 11-19-2024 ambulatory Jenniffer Perea CONCESSION ATTENDANT-C Work Phone: [facility] Work Phone: Start: 11-06-2024 End: 11-06-2024 Patient encounter procedure Gonzalez Dunne CNM -[facility] Work Phone: Start: 11-06-2024 End: 11-06-2024 ambulatory Jenniffer Perea CONCESSION ATTENDANT-C Work Phone: [facility] Work Phone: Start: 10-29-2024 ambulatory Sophia Hernandezi lity:NASH Start: 10-29-2024 Non-patient / Non-visit Dr. Sophia Ellison MD -[facility] Start: 10-28-2024 End: 10-29-2024 ambulatory Jenniffer Perea CONCESSION ATTENDANT-C Work Phone: [facility] Work Phone: Start: 10-28-2024 End: 10-29-[address] Sophia Ellison MD -[facility] Work Phone: Start: 10-22-2024 End: 10-22-2024 ambulatory Jenniffer Perea CONCESSION ATTENDANT-C Work Phone: [facility] Work Phone: Start: 10-22-2024 End: 10-22-2024 Patient encounter procedure Malathi Magdaleno CONCESSION ATTENDANT-C -[facility] Work Phone: Start: 10-22-2024 End: 10-22-2024 ambulatory Sophia Ellison Facility:[facility] Start: 09-24-2024 End: 09-24-[address] Sophia Ellison MD -[facility] Work Phone: Start: 09-24-2024 End: 09-24-2024 ambulatory Jenniffer Perea NP Facility:[facility] Start: 09-07-2024 End: 09-07-2024 ambulatory DEVAN Altamirano [facility] Start: 08-27-2024 End: 08-27-[address] Lashay Fields DO -[facility] Work Phone: Start: 08-27-2024 End: 08-27-2024 ambulatory Lashay Fields Facility:[facility] Start: 07-30-2024 End: 07-30-2024 Patient encounter procedure Gonzalez Dunne CNM -[facility] Work Phone: Start: 07-30-2024 End: 07-30-2024 ambulatory Jenniffer Perea CONCESSION ATTENDANT Facility:[facility] Start: 07-21-2024 End: 07-21-2024 Emergency department patient visit Dr. Aashish Thomas MD -Emergency Department Work Phone: Start: 07-02-2024 End: 07-02-[address] [facility] Start: 07-02-2024 End: 07-02-[address] Lashay Fields DO -[facility] Work Phone: Start: 07-02-2024 End: 07-02-2024 ambulatory Lashay Fields Facility:[facility] Start: 07-02-2024 End: 07-02-2024 ambulatory Lashay Fields Facility:[facility] Start: 06-26-2024 Non-patient / Non-visit Rachel Peña RN -[facility] Work Phone: Start: 06-26-2024 ambulatory Rachel Peña Facility :[facility] Start: 05-21-2024 End: 05-21-2024 ambulatory Jenniffer Perea NP Facility:[facility] Start: 12-08-2023 End: 12-08-2023 ambulatory JENNIFFER PEREA FISHING FLOATS ASSEMBLER-SEPARATING MACHINE OPERATOR Facility:B Start: 10-04-2023 End: 10-04-2023 ambulatory JENNIFFER PEREA FISHING FLOATS ASSEMBLER-SEPARATING MACHINE OPERATOR Facility:B Start: 09-29-2023 End: 09-29-2023 ambulatory [facility] Start: 09-29-2023 End: 09-29-2023 Subsequent hospital visit by physician Radha Scott DO Work Phone: [facility] Start: 09-27-2023 End: 09-27-2023 ambulatory CONCESSION ATTENDANT-C Jenniffer Perea CONCESSION ATTENDANT Work Phone: [facility] Work Phone: Start: 09-27-2023 End: 09-27-2023 Patient encounter procedure CONCESSION ATTENDANT-C Jenniffer Perea CONCESSION ATTENDANT Work Phone: [facility] Work Phone: Start: 09-23-2023 End: 09-23-2023 ambulatory [facility] Start: 08-25-2023 End: 08-25-2023 Patient encounter procedure CONCESSION ATTENDANT-C Jenniffer Perea CONCESSION ATTENDANT Work Phone: [facility] Work Phone: Start: 08-08-2023 End: 08-08-2023 Patient encounter procedure CONCESSION ATTENDANT-C Jenniffer Perea CONCESSION ATTENDANT Work Phone: [facility] Work Phone: Start: 03-14-2023 End: 03-14-2023 Emergency department patient visit [facility] Work Phone: Start: 02-04-2023 End: 02-04-2023 ambulatory JENNIFFER PEREA FISHING FLOATS ASSEMBLER-SEPARATING MACHINE OPERATOR Facility:B Start: 02-04-2023 End: 02-04-2023 SAME DAY STAY [facility]ELISA ULLOA [facility] Start: 02-02-2023 End: 02-02-2023 ambulatory JENNIFFER PEREA FISHING FLOATS ASSEMBLER-SEPARATING MACHINE OPERATOR Facility:B Start: 02-02-2023 End: 02-02-2023 Patient encounter procedure JAXSON SIMMONS FISHING FLOATS ASSEMBLER-[facility] Start: 02-02-2023 End: 02-02-2023 ambulatory JENNIFFER PEREA FISHING FLOATS ASSEMBLER-SEPARATING MACHINE OPERATOR Facility:B Start: 02-02-2023 End: 02-02-2023 Patient encounter procedure JENNIFFER PEREA FISHING FLOATS ASSEMBLER-SEPARATING MACHINE OPERATOR [facility] Start: 12-08-2022 End: 12-10-2022 Evaluation and management of inpatient JAXSON SIMMONS FISHING FLOATS ASSEMBLER[facility] Start: 12-08-2022 End: 12-08-2022 SAME DAY STAY LILLI LEE [facility] Start: 12-07-2022 End: 12-07-2022 SAME DAY STAY MELISA ULLOA [facility] Start: 11-10-2022 End: 11-10-2022 Patient encounter procedure LILLI LEE [facility] Start: 11-09-2022 End: 11-13-2022 Outreach Lab LILLI LEE [facility] Start: 09-14-2022 End: 09-14-2022 Patient encounter procedure MELISA ULLOA MD [facility] Start: 07-14-2022 End: 07-14-2022 Patient encounter procedure SAURABH PARSONS FISHING FLOATS ASSEMBLER-SEPARATING MACHINE OPERATOR [facility] Start: 07-11-2022 End: 07-11-2022 Emergency department patient visit KEVIN HARDIN MD [facility] Start: 05-19-2022 End: 05-23-2022 Outreach Lab SAURABH PARSONS FISHING FLOATS ASSEMBLER-SEPARATING MACHINE OPERATOR [facility] Start: 05-19-2022 End: 05-19-2022 Patient encounter procedure SAURABH PARSONS FISHING FLOATS ASSEMBLER-SEPARATING MACHINE OPERATOR [facility] Start: 12-16-2021 End: 12-16-2021 Patient encounter procedure LILLI LEE MD [facility] Start: 12-02-2021 End: 12-06-2021 Outreach Lab LILLI LEE MD [facility] Start: 06-11-2021 End: 06-11-2021 Patient encounter procedure JENNIFFER PEREA FISHING FLOATS ASSEMBLER-SEPARATING MACHINE OPERATOR [facility] Start: 07-21-2019 End: 07-21-2019 Emergency department patient visit Quang Estrelladonovan Work Phone: [facility] Comment on above: Strain of lumbar reg ion, initial encounter (Primary Dx) Procedures Date Procedure Procedure Detail Performing Clinician Start: 12-25-2024 Measurement of pH in vaginal fluid specimen using nitrazine yellow for detection of rupture of amniotic membrane Jenniffer LOWRYC Work Phone: Comment on above: Amniotic fluid not p resent indicates No Rupture of FetalMembranes at time of specimen collection. Start: 10-29-2024 Urine culture Jenniffer LOWRYC Work Phone: Start: 10-28-2024 Urnls dip stick/tabl et reagent auto microscopy Jenniffer Perea CONCESSION ATTENDANT-C Work Phone: Start: 10-22-2024 Serologic test for syphilis Jenniffer Perea CONCESSION ATTENDANT-C Work Phone: Start: 07-21-2024 Estimated creatinine clearance Jenniffer Perea CONCESSION ATTENDANT-C Work Phone: Start: 07-21-2024 Measurement of renal function Jenniffer Perea CONCESSION ATTENDANT-C Work Phone: Comment on above: GFR Calc Start: 07-21-2024 Urnls dip stick/tabl et reagent auto microscopy Jenniffer Perea CONCESSION ATTENDANT-C Work Phone: Start: 07-02-2024 Urine culture Jenniffer matthews CONCESSION ATTENDANT-C Work Phone: Start: 07-02-2024 Procedure Jenniffer painting CONCESSION ATTENDANT-C Work Phone: Start: 07-02-2024 Hepatitis B surface antigen measurement Jenniffer Perea CONCESSION ATTENDANT-C Work Phone: Start: 07-02-2024 Hepatitis C antibody measurement Jenniffer Perea CONCESSION ATTENDANT-C Work Phone: Comment on above: Non Reactive: < 0.8 Equivocal: >/= 0.8 to < 1.0 Reactive: >/= 1.0The CDC requires that a reactive/equivocal HCV antibody result be sent out for confirmation. HCV Quant by PCR testing. Start: 07-02-2024 Liquid based cervica l cytology screening Jenniffer Perea CONCESSION ATTENDANT-C Work Phone: Comment on above: NEGATIVE FOR INTRAEP ITHELIAL LESION OR MALIGNANCY.THIS SPECIMEN WAS RESCREENED PART OF [employer] PROGRAM. This liquid based Th inPrep(R) pap test was screened withthe use of an image guided system. The HPV DNA reflex c riteria were not met with this specimenresult therefore, no HPV testing was performed.Performed at: [address] [id number] Director: Em Ramirez MD, Phone: [phone] Start: 07-02-2024 Rubella IgG measurement Jenniffer Perea CONCESSION ATTENDANT-C Work Phone: Comment on above: Antibody Results Int erpretation of Immune Status Non Reactive Presumed Non-Immune Equivocal Equivocal Reactive Presumed Immune Start: 09-29-2023 Urine test visual color cmprsn haos Inge Zuniga FISHING FLOATS ASSEMBLER - HEAT TREATMENT TECHNICIAN Work Phone: Start: 02-04-2023 Dilation and curettage MELISA ULLOA MD Start: 07-21-2019 Radex spine lumbosac ral 2/3 views Quang Sameerusumilli Work Phone: Start: 07-21-2019 Radex spine thoracic minimum 4 views Quang Adusumilli Work Phone: Nasal cautery JENNIFFER PEREA FISHING FLOATS ASSEMBLER-SEPARATING MACHINE OPERATOR Structure of wisdom tooth (body structure) MELISA ULLOA MD Plan of Treatment Date Care Activity Detail Author Start: 2061 RSV Immunization aged 60 or older (1 - 1-dose 60+ series) RSV Immunization aged 60 or older (1 - 1-dose 60+ series) [facility] Start: 2051 Zoster Vaccines (1 of 2) Zoster Vaccines (1 of 2) [facility] Start: 10-11-2032 DTaP/Tdap/Td Vaccines (3 - Td or Tdap) DTaP/Tdap/Td Vaccines (3 - Td or Tdap) [facility] Start: 12-31-2024 Group B Streptococcus Culture Group B Streptococcus Culture [facility] Start: 12-31-2024 Streptococcus agalactiae [Presence] in Unspecified specimen by Organism specific culture [facility] Start: 12-25-2024 Nonstress test [facility] Start: 12-25-2024 Obstetric monitoring [facility] Start: 12-25-2024 Vital signs measurements [facility] Start: 12-25-2024 [facility] Start: 12-25-2024 Patient discharge [facility] Start: 12-13-2024 Nonstress test [facility] Start: 12-13-2024 Obstetric monitoring [facility] Start: 12-13-2024 [facility] Start: 12-13-2024 Vital signs measurements [facility] Start: 10-29-2024 Patient discharge [facility] Start: 10-28-2024 End: 10-29-2024 [facility] Start: 10-28-2024 Nonstress test [facility] Start: 10-28-2024 Obstetric monitoring [facility] Start: 10-28-2024 Vital signs measurements [facility] Start: 02-12-2024 Influenza vaccination Influenza Vaccine (Season Ended) [facility] Start: 09-29-2023 End: 09-29-2023 Control nasal hemorrhage anterior complex CONTROL NASAL HEMORRHAGE ANTERIOR COMPLEX Epistaxis 09/29/2023 9:34 AM EDT [facility] Operating Room Start: 02-11-2023 COVID-19 Vaccine ( season) COVID-19 Vaccine ( season) [facility] Start: 2022 Screening for malignant neoplasm of cervix Pap Smear [facility] Start: 2020 Hepatitis B Vaccines (1 of 3 - 19+ 3-dose series) Hepatitis B Vaccines (1 of 3 - 19+ 3-dose series) [facility] Start: 2019 Hepatitis C screening Hepatitis C Screening [facility] Start: 02-11-2019 Influenza vaccination Flu vaccine (#1) [facility] Work Phone: Start: 2016 HPV Vaccines (1 - 3-dose series) HPV Vaccines (1 - 3-dose series) [facility] Start: 2014 Varicella vaccination Varicella Vaccines (1 of 2 - 13+ 2-dose series) [facility] Start: 2013 Depression Screening Depression Screening [facility] Start: 2007 Pneumococcal Vaccine: Pediatrics (0 to 5 Years) and At-Risk Patients (6 to 64 Years) (1 of 2 - PCV) Pneumococcal Vaccine: Pediatrics (0 to 5 Years) and At-Risk Patients (6 to 64 Years) (1 of 2 - PCV) [facility] Start: 2002 MMR Vaccines (1 of 1 - Standard series) MMR Vaccines (1 of 1 - Standard series) [facility] Start: 2001 HIV screening HIV Screening [facility] Beta-hemolytic Streptococcus culture [facility] Patient Education [facility] Work Phone: Patient referral [facility] Work Phone: Streptococcus agalac tiae [Presence] in Unspecified specimen by Organism specific culture [facility] Urine culture [facility] Immunizations Immunization Date Immunization Notes Care Provider Fa cility 11-06-2024 tetanus toxoid, redu taniya diphtheria toxoid, and acellular pertussis vaccine, adsorbed Jenniffer Perea CONCESSION ATTENDANT-C Work Phone: [facility] 10-11-2022 tetanus toxoid, redu taniya diphtheria toxoid, and acellular pertussis vaccine, adsorbed; Translations: [Boostrix (Tdap)] LILLI LEE MD [facility] Comment on above: Early/Late Reason: E eduardo/Late Reason: Other : nurse unable to chart at time of injection Result Comment: [facility]# [id number] 01-01-2014 meningococcal polysaccharide (groups A, C, Y and W-135) diphtheria toxoid conjugate vaccine (MCV4P) JENNIFFER PEREA FISHING FLOATS ASSEMBLER-SEPARATING MACHINE OPERATOR [facility] 01-01-2014 tetanus toxoid, redu taniya diphtheria toxoid, and acellular pertussis vaccine, adsorbed JENNIFFER PEREA FISHING FLOATS ASSEMBLER-SEPARATING MACHINE OPERATOR [facility] Payers Date Payer Category Payer Self-pay [id number] 2021 Unknown [id number] 2021 Unknown AMALIA DAVIS S AMALIA ANAND [id number] 2021-Present [address] [place] [address] Commercial [id number] 2001 Unknown [id number] [id number] 2001 Unknown [id number] 2.16.840.1.773812.3.579.2.627 2001 Unknown [id number] 2.16.840.1.825410.3.579.2.627 2001 Unknown [id number] 2.16.840.1.931848.3.579.2.627 2001 Unknown [id number] 2.16840.1.497496.3.579.2.627 2001 Unknown [id number] 2.840.1.613790.3.579.2.479 Unknown [facility] [id number] Unknown [id number] 2.16840.1.725838.3.579.2.462 Unknown [id number] 2.16840.1.221978.3.579.2.462 Unknown [id number] 2.16840.1.848840.3.579.2.462 Unknown [id number] 2.16840.1.001618.3.579.2.462 Unknown [id number] 2.16840.1.925552.3.579.2.462 Unknown [id number] 2.16.840.1.695341.3.579.2.462 Unknown [id number] 2.16840.1.363047.3.579.2.462 Unknown [id number] 2.16.840.1.480279.3.579.2.462 Unknown [id number] 2.16.840.1.565946.3.579.2.462 Unknown [id number] 2.16.840.1.427216.3.579.2.462 Unknown [id number] 2.16.840.1.474065.3.579.2.462 Unknown [id number] 2.16.840.1.975690.3.579.2.462 Unknown [id number] 2.16.840.1.208135.3.579.2.462 Unknown [id number] 2.16.840.1.763265.3.579.2.462 Unknown [id number] 2.16.840.1.180336.3.579.2.462 Unknown [id number] 2.16.840.1.291206.3.579.2.462 Unknown [id number] 2.16.840.1.421434.3.579.2.462 Unknown [id number] 2.16.840.1.304473.3.579.2.462 Unknown [id number] 2.16.840.1.575155.3.579.2.462 Unknown [id number] 2.16.840.1.981786.3.579.2.462 Unknown [id number] 2.16.840.1.359275.3.579.2.462 Unknown [id number] 2.16.840.1.779729.3.579.2.462 Social History Date Type Detail Facility Start: 07-21-2019 End: 07-21-2024 Tobacco smoking status [facility] Never smoker [employer] Work Phone: Start: 07-21-2019 Alcohol intake Lifetime non-d maya (finding) [employer] Work Phone: Start: 07-21-2019 History SDOH Alcohol Frequency 1 [employer] Phone: Start: 2001 Sex Assigned At Not on file S [facility] Work Phone: Sex Assigned At [facility] Start: 2001 Sex Assigned At Female W [facility] Start: 09-23-2023 Tobacco use and exposure Smoke less tobacco non-user [facility] Start: 09-29-2023 Alcohol intake Ex-drinker (finding) [facility] Start: 09-29-2023 History of Social function [facility] Start: 09-29-2023 Humiliation, Afraid, Rape, and Kick questionnaire [HARK] [facility] Within the last year , have you been afraid of your partner or ex-partner? No [facility] Start: 08-08-2023 Tobacco smoking stat us WVIS Unknown if ever smoked [facility] Functional Status Date Assessment Result Facility 02-04-2023 Functional Status Activity Statu s ADL Up to bathroom [facility] 02-04-2023 Functional Status bilateral knee high rashel lied/on [facility] 02-04-2023 Functional Status Maintained [facility] 12-10-2022 Functional Status Safety level maintained [facility] 12-10-2022 Functional Status [facility] 12-10-2022 Functional Status Rooming in [facility] 12-09-2022 Functional Status [facility] 12-09-2022 Functional Status [facility] 12-09-2022 Functional Status [facility] 12-09-2022 Functional Status [facility] 12-08-2022 Functional Status Home independently [facility] 07-11-2022 Functional Status Independent [facility] 07-11-2022 Functional Status Standard Safet y ID band on, Call device within reach, Bed in low position, Wheels locked, Upper/Half-Length side-rails up, Phone within reach, personal items within reach, Safety level maintained [facility] Mental Status Date Assessment Result Facility 07-21-2024 Cognitive function Voice/Name [facility] Work Phone: 02-04-2023 Mental Status Orientation Oriented x 4 [facility] 02-04-2023 Mental Status [facility] 12-10-2022 Mental Status Oriented x 4 [facility] 12-09-2022 Mental Status [facility] 07-11-2022 Mental Status Orientation Oriented x 4 [facility] 07-11-2022 Mental Status [facility] Clinical Notes 07-11-2022 to 12-31-2024 Note Date & Type Note Facility 12-31-2024 Progress note [facility] 12-13-2024 Progress note [facility] 12-03-2024 Progress note [facility] 09-24-2024 Evaluation note Diagnosis Onset Date Resolution Asthma acute September 24 8:52am Family history of spina bifida acute September 24, 2024 8:52am History of eating disorder acute September 24, 2024 8:52am Migraine with aura acute September 24, 2024 8:52am Obesity affecting acute September 24, 2024 8:52am acute September 24 8:52am Supervision of high-risk acute September 24, 2024 8:52am Asthma acute October 22, 2024 12:37pm Family history of spina bifida acute October 22, 2024 12:37pm History of eating disorder acute October 22, 2024 12:37pm Migraine with aura acute October 222024 12:37pm Obesity affecting acute October 22, 2024 12:37pm acute October 22, 2024 12:37pm Supervision of high-risk acute October 22 12:37pm Asthma acute November 06, 2024 9:51am Family history of spina bifida acute November 06, 2024 9 :51am History of eating disorder acute November 06, 2024 9 :51am Migraine with aura acute November 062024 9:51am Obesity affecting acute November 06, 2024 9 :51am acute November 06, 2024 9:51am Supervision of high-risk acute November 06 9:51am Family history of spina bifida acute November 19, 2024 8 :27am History of eating disorder acute November 19, 2024 8 :27am History of retained placenta acute November 19, 2024 8 :27am Obesity affecting acute November 19, 2024 8 :27am acute November 19, 2024 8:27am Supervision of high-risk acute November 19 8:27am Asthma acute December 03 9:09am Family history of spina bifida acute December 03, 2024 9:09am History of eating disorder acute December 03, 2024 9:09am History of retained placenta acute December 03, 2024 9:09am Migraine with aura acute November 122024 9:09am Obesity affecting acute December 03, 2024 9:09am acute December 03 9:09am Supervision of high-risk acute December 03, 2 025 9:09am Asthma acute December 17, 2024 9:29am Family history of spina bifida acute December 17, 2024 9 :29am History of eating disorder acute December 17, 2024 9 :29am History of retained placenta acute December 17, 2024 9 :29am Migraine with aura acute December 172024 9:29am Obesity affecting acute December 17, 2024 9 :29am acute December 17, 2024 9:29am Supervision of high-risk acute December 17 9:29am Asthma acute December 25 1:50pm Family history of spina bifida acute December 25, 2024 1:50pm History of eating disorder acute December 25, 2024 1:50pm History of retained placenta acute December 25, 2024 1:50pm Migraine with aura acute December 112024 1:50pm Obesity affecting acute December 25, 2024 1:50pm acute December 25 1:50pm Supervision of high-risk acute December 25, 2 025 1:50pm Asthma acute December 31 9:37am Family history of spina bifida acute December 31, 2024 9:37am History of eating disorder acute December 31, 2024 9:37am History of retained placenta acute Archana 21st, 2025 9:37am Migraine with aura acute December 122024 9:37am Obesity affecting acute December 31, 2024 9:37am acute December 31 9:37am Supervision of high-risk acute December 31, 9:37am [facility] Work Phone: 1(619) 223-810403-17-2025 Evaluation note* Diagnosis Onset Date Resolution Status Admit Date Asthma acute August 27 2:20pm Family history of spina bifida acute August 27, 2024 2:20pm History of eating disorder acute August 27, 2024 2:20pm Migraine with aura acute August 27, 2024 2:20pm Obesity affecting acute August 27, 2024 2:20pm acute August 27 2:20pm Supervision of high-risk acute August 27, 2024 2:20pm Asthma acute September 24 8:52am Family history of spina bifida acute September 24, 2024 8:52am History of eating disorder acute September 24, 2024 8:52am Migraine with aura acute September 24, 2024 8:52am Obesity affecting acute September 24, 2024 8:52am acute September 24 8:52am Supervision of high-risk acute September 24, 2024 8:52am Asthma acute October 22, 2024 12:37pm Family history of spina bifida acute October 22, 2024 12:37pm History of eating disorder acute October 22, 2024 12:37pm Migraine with aura acute October 222024 12:37pm Obesity affecting acute October 22, 2024 12:37pm acute October 22, 2024 12:37pm Supervision of high-risk acute October 22, 2024 1 2:37pm Asthma acute November 06, 2024 9:51am Family history of spina bifida acute November 06, 2024 9:51am History of eating disorder acute November 06, 2024 9:51am Migraine with aura acute November 062024 9:51am Obesity affecting acute November 06, 2024 9:51am acute November 06, 2024 9:51am Supervision of high-risk acute November 06, 2024 9 :51am Family history of spina bifida acute November 19, 2024 8:27am History of eating disorder acute November 19, 2024 8:27am History of retained placenta acute November 19, 2024 8:27am Obesity affecting acute November 19, 2024 8:27am acute November 19, 2024 8:27am Supervision of high-risk acute November 19, 2024 8 :27am Asthma acute December 03 9:09am Family history of spina bifida acute December 03, 2024 9:09am History of eating disorder acute December 03, 2024 9:09am History of retained placenta acute December 03, 2024 9:09am Migraine with aura acute November 122024 9:09am Obesity affecting acute December 03, 2024 9:09am acute December 03 9:09am Supervision of high-risk acute December 03, 2024 9:09am [facility] Work Phone: 1(892) 586-803203-17-2025 Evaluation note* Diagnosis Onset Date Resolution Status Admit Date Asthma acute August 27 2:20pm Family history of spina bifida acute August 27, 2024 2:20pm History of eating disorder acute August 27, 2024 2:20pm Migraine with aura acute August 27, 2024 2:20pm Obesity affecting acute August 27, 2024 2:20pm acute August 27 2:20pm Supervision of high-risk acute August 27, 2024 2:20pm Asthma acute September 24 8:52am Family history of spina bifida acute September 24, 2024 8:52am History of eating disorder acute September 24, 2024 8:52am Migraine with aura acute September 24, 2024 8:52am Obesity affecting acute September 24, 2024 8:52am acute September 24 8:52am Supervision of high-risk acute September 24, 2024 8:52am Asthma acute October 22, 2024 12:37pm Family history of spina bifida acute October 22, 2024 12:37pm History of eating disorder acute October 22, 2024 12:37pm Migraine with aura acute October 222024 12:37pm Obesity affecting acute October 22, 2024 12:37pm acute October 22, 2024 12:37pm Supervision of high-risk acute October 22, 2024 1 2:37pm Asthma acute November 06, 2024 9:51am Family history of spina bifida acute November 06, 2024 9:51am History of eating disorder acute November 06, 2024 9:51am Migraine with aura acute November 062024 9:51am Obesity affecting acute November 06, 2024 9:51am acute November 06, 2024 9:51am Supervision of high-risk acute November 06, 2024 9 :51am Family history of spina bifida acute November 19, 2024 8:27am History of eating disorder acute November 19, 2024 8:27am History of retained placenta acute November 19, 2024 8:27am Obesity affecting acute November 19, 2024 8:27am acute November 19, 2024 8:27am Supervision of high-risk acute November 19, 2024 8 :27am Asthma acute December 03 9:09am Family history of spina bifida acute December 03, 2024 9:09am History of eating disorder acute December 03, 2024 9:09am History of retained placenta acute December 03, 2024 9:09am Migraine with aura acute November 122024 9:09am Obesity affecting acute December 03, 2024 9:09am acute December 03 9:09am Supervision of high-risk acute December 03, 2024 9:09am Asthma acute December 17, 2024 9:29am Family history of spina bifida acute December 17, 2024 9:29am History of eating disorder acute December 17, 2024 9:29am History of retained placenta acute December 17, 2024 9:29am Migraine with aura acute December 172024 9:29am Obesity affecting acute December 17, 2024 9:29am acute December 17, 2024 9:29am Supervision of high-risk acute December 17, 2024 9 :29am [facility] Work Phone: 1(118) 439-242602-17-2025 Evaluation note* Diagnosis Onset Date Resolution Status Admit Date Asthma acute July 30, 2024 1:08pm Family history of spina bifida acute July 30, 2024 1:08pm History of eating disorder acute July 30, 2024 1:08pm Migraine with aura acute Februa 2024 1:08pm Obesity affecting acute July 30, 2024 1:08pm acute July 30, 2024 1:08pm Supervision of high-risk acute July 30, 1:08pm Asthma acute August 27 2:20pm Family history of spina bifida acute August 27, 2024 2:20pm History of eating disorder acute August 27, 2024 2:20pm Migraine with aura acute August 27, 2024 2:20pm Obesity affecting acute August 27, 2024 2:20pm acute August 27 2:20pm Supervision of high-risk acute August 27, 2024 2:20pm Asthma acute September 24 8:52am Family history of spina bifida acute September 24, 2024 8:52am History of eating disorder acute September 24, 2024 8:52am Migraine with aura acute September 24, 2024 8:52am Obesity affecting acute September 24, 2024 8:52am acute September 24 8:52am Supervision of high-risk acute September 24, 2024 8:52am Asthma acute October 22, 2024 12:37pm Family history of spina bifida acute October 22, 2024 12:37pm History of eating disorder acute October 22, 2024 12:37pm Migraine with aura acute October 222024 12:37pm Obesity affecting acute October 22, 2024 12:37pm acute October 22, 2024 12:37pm Supervision of high-risk acute October 22, 2024 1 2:37pm Asthma acute November 06, 2024 9:51am Family history of spina bifida acute November 06, 2024 9:51am History of eating disorder acute November 06, 2024 9:51am Migraine with aura acute November 062024 9:51am Obesity affecting acute November 06, 2024 9:51am acute November 06, 2024 9:51am Supervision of high-risk acute November 06, 2024 9 :51am [facility] Work Phone: 1(568) 131-436402-17-2025 Evaluation note* Diagnosis Onset Date Resolution Status Admit Date Asthma acute July 30, 2024 1:08pm Family history of spina bifida acute July 30, 2024 1:08pm History of eating disorder acute July 30, 2024 1:08pm Migraine with aura acute Februa 2024 1:08pm Obesity affecting acute July 30, 2024 1:08pm acute July 30, 2024 1:08pm Supervision of high-risk acute July 30, 1:08pm Asthma acute August 27 2:20pm Family history of spina bifida acute August 27, 2024 2:20pm History of eating disorder acute August 27, 2024 2:20pm Migraine with aura acute August 27, 2024 2:20pm Obesity affecting acute August 27, 2024 2:20pm acute August 27 2:20pm Supervision of high-risk acute August 27, 2024 2:20pm Asthma acute September 24 8:52am Family history of spina bifida acute September 24, 2024 8:52am History of eating disorder acute September 24, 2024 8:52am Migraine with aura acute September 24, 2024 8:52am Obesity affecting acute September 24, 2024 8:52am acute September 24 8:52am Supervision of high-risk acute September 24, 2024 8:52am Asthma acute October 22, 2024 12:37pm Family history of spina bifida acute October 22, 2024 12:37pm History of eating disorder acute October 22, 2024 12:37pm Migraine with aura acute October 222024 12:37pm Obesity affecting acute October 22, 2024 12:37pm acute October 22, 2024 12:37pm Supervision of high-risk acute October 22, 2024 1 2:37pm Asthma acute November 06, 2024 9:51am Family history of spina bifida acute November 06, 2024 9:51am History of eating disorder acute November 06, 2024 9:51am Migraine with aura acute November 062024 9:51am Obesity affecting acute November 06, 2024 9:51am acute November 06, 2024 9:51am Supervision of high-risk acute November 06, 2024 9 :51am Family history of spina bifida acute November 19, 2024 8:27am History of eating disorder acute November 19, 2024 8:27am History of retained placenta acute November 19, 2024 8:27am Obesity affecting acute November 19, 2024 8:27am acute November 19, 2024 8:27am Supervision of high-risk acute November 19, 2024 8 :27am [facility] Work Phone: 1(304) 439-203901-20-2025 Evaluation note* Diagnosis Onset Date Resolution Status Admit Date Asthma acute July 02, 2024 9:54am Family history of spina bifida acute July 02, 2024 9:54am History of eating disorder acute July 02, 2024 9:54am Migraine with aura acute 2024 9:54am Obesity affecting acute July 02, 2024 9:54am acute July 02, 2024 9:54am Supervision of high-risk acute July 02 9:54am Asthma acute July 30, 2024 1:08pm Family history of spina bifida acute July 30, 2024 1:08pm History of eating disorder acute July 30, 2024 1:08pm Migraine with aura acute 2024 1:08pm Obesity affecting acute July 30, 2024 1:08pm acute July 30, 2024 1:08pm Supervision of high-risk acute July 30, 1:08pm Asthma acute August 27 2:20pm Family history of spina bifida acute August 27, 2024 2:20pm History of eating disorder acute August 27, 2024 2:20pm Migraine with aura acute August 27, 2024 2:20pm Obesity affecting acute August 27, 2024 2:20pm acute August 27 2:20pm Supervision of high-risk acute August 27, 2024 2:20pm Asthma acute September 24 8:52am Family history of spina bifida acute September 24, 2024 8:52am History of eating disorder acute September 24, 2024 8:52am Migraine with aura acute September 24, 2024 8:52am Obesity affecting acute September 24, 2024 8:52am acute September 24 8:52am Supervision of high-risk acute September 24, 2024 8:52am Asthma acute October 22, 2024 12:37pm Family history of spina bifida acute October 22, 2024 12:37pm History of eating disorder acute October 22, 2024 12:37pm Migraine with aura acute October 222024 12:37pm Obesity affecting acute October 22, 2024 12:37pm acute October 22, 2024 12:37pm Supervision of high-risk acute October 22, 2024 1 2:37pm [facility] Work Phone: 1(662) 740-187604-18-2024 NotePatient: Cydney Brown Procedure Summary Date: 09/29/23 Room / Location: [address] Operating Room Anesthesia Start: 929 Anesthesia Stop: 100 Procedure: LEFT CONTROL OF ANTERIOR NASAL HEMORRHAGE, COMPLEX (Left: Nose) Diagnosis: Epistaxis (Epistaxis [R04.0]) Surgeons: Radha Scott DO Responsible Provider: MINOR Walsh CRNA Anesthesia Type: general ASA Status: 2 Anesthesia Type: general Vitals Value Taken Time BP 117/65 09/29/23 1000 Temp 36.3 ?C (97.4 ?F) 09/29/23 1000 Pulse 84 09/29/23 1000 Resp 25 09/29/23 1000 SpO2 100 % 09/29/23 1000 Anesthesia Post Evaluation Patient location during evaluation: PACU Patient participation: complete - patient participated Level of consciousness: awake and alert Pain management: satisfactory to patient Multimodal analgesia pain management approach Airway patency: patent Two or more strategies used to mitigate risk of obstructive sleep apnea Cardiovascular status: acceptable and hemodynamically stable Respiratory status: acceptable Hydration status: acceptable No notable events documented. MIPS #430 PONV Patient received an inhalational anesthetic (4554F) Patient exhibits three or more risk factors for PONV (4556F) Patient received at leaset 2 prophylactic Rx PONV anti-emtic agents of different classes preop and/or intraop (G9775) MIPS # 424 Perioperative Temperature Management Anesthesia time was 60 minutes or longer (4255F) Anesthesai administered was General (inhalational or TIVA) or Neuraxial block (X0424) At least one body temperature greater than 95.8F/35.5C achieved within the 30 mins immediately prior to or the 15 minutes immediately following anesthesia end time (G9771) MIPS #477 Multimodal Pain Management Not emergent case Patient was administered multimodal pain management (two or more drugs and/or interventions excluding systemic opioids) in the periopeartive period occurring at some time between 6 hours prior to anesthesia start time until discharged from PACU (G2148) MIPS #404 Anesthesiology Smoking Abstinence The patient is not a current smoker (e.g. cigarette, cigar, pipe, e-cigarette/vaping/marijuana) If no stop here (XX404) I completed my handoff to the receiving clinician during which we: 1. Identified the patient 2. Identified the responsible provider 3. Reviewed the pertinent medical history 4. Discussed the surgical course 5. Reviewed intra-op anesthesia management and issues during anesthesia 6. Set expectations for post-procedure period 7. Allowed opportunity for questions and acknowledgement of understanding.[facility]04-18-2024 NotePatient: Cydney Brown Procedure Summary Date: 09/29/23 Room / Location: [address] Operating Room Anesthesia Start: 929 Anesthesia Stop: 100 Procedure: LEFT CONTROL OF ANTERIOR NASAL HEMORRHAGE, COMPLEX (Left: Nose) Diagnosis: Epistaxis (Epistaxis [R04.0]) Surgeons: Radha Scott DO Responsible Provider: MINOR Walsh CRNA Anesthesia Type: general ASA Status: 2 Anesthesia Type: general Vitals Value Taken Time BP 117/65 09/29/23 1000 Temp 36.3 ?C (97.4 ?F) 09/29/23 1000 Pulse 84 09/29/23 1000 Resp 25 09/29/23 1000 SpO2 100 % 09/29/23 1000 Anesthesia Post Evaluation Patient location during evaluation: PACU Patient participation: complete - patient participated Level of consciousness: awake and alert Pain management: satisfactory to patient Airway patency: patent Dental Injury: no Cardiovascular status: acceptable, blood pressure returned to baseline and hemodynamically stable Respiratory status: acceptable and spontaneous ventilation Hydration status: euvolemic Nausea/Vomiting: controlled No notable events documented. Patient can be discharged once all PACU criteria has been met.[place] [id number] NoteAirway Date/Time: 09/29/2023 9:38 AM Urgency: scheduled Airway not difficult General Information and Staff Patient location during procedure: Procedural Resident/HEAT TREATMENT TECHNICIAN: Filiberto Rao APRN - HEAT TREATMENT TECHNICIAN Performed: HEAT TREATMENT TECHNICIAN Indications and Patient Condition Indications for airway management: anesthesia Sedation level: Asleep Patient position: sniffing Mask difficulty assessment: 1 - vent by mask Final Airway Details Final airway type: endotracheal airway Successful airway: ETT and oral BIA Cuffed: yes Successful intubation technique: direct laryngoscopy Facilitating devices/methods: intubating stylet Endotracheal tube insertion site: oral Blade: Joan Blade size: #3 ETT size (mm): 7.0 Cormack-Lehane Classification: grade IIa - partial view of glottis Placement verified by: chest auscultation and capnometry Measured from: lips ETT to lips (cm): 21 Number of attempts at approach: 1 Number of other approaches attempted: 0[facility]04-18-2024 NoteH&P reviewed. The patient was examined and there are no changes to the H&P.[place] [id number] Note* Perioperative Nursing Note - Coral Baires RN - 09/29/2023 11:05 AM EDT Pt and family verbalized understanding of recovery instructions, pt verbalized a readiness to be discharged home. Pt discharged home via wheelchair accompanied by RN/volunteer. Pt has had all their belongings returned to them at discharge [id number] Note* Perioperative Nursing Note - Coral Baires RN - 09/29/2023 11:05 AM EDT Pt and family verbalized understanding of recovery instructions, pt verbalized a readiness to be discharged home. Pt discharged home via wheelchair accompanied by RN/volunteer. Pt has had all their belongings returned to them at discharge [id number] Miscellaneous Notes* Perioperative Nursing Note - Coral Baires RN - 09/29/2023 11:05 AM EDT Pt and family verbalized understanding of recovery instructions, pt verbalized a readiness to be discharged home. Pt discharged home via wheelchair accompanied by RN/volunteer. Pt has had all their belongings returned to them at discharge * Perioperative Nursing Note - Mercedes Rodriguez RN - 09/29/2023 10:52 AM EDT Patient is transported to same day surgery for discharge and is brought to bedside. She is alert and has no complaints. Discharge instructions reviewed with pt and and she states she is ready to go home. Iv discontinued and report is given to coral * Perioperative Nursing Note - Soumya Marquez RN - 09/29/2023 10:00 AM EDT Pt received from OR via cart, spont. Resp. With HEAT TREATMENT TECHNICIAN in attendance. Placed on monitor. Monitor alarms on in PACU * Op Note - Radha Scott DO - 09/29/2023 9:34 AM EDT OPERATIVE NOTE Patient Name: Cydney Brown DATE OF PROCEDURE: 09/29/2023 SURGEON: Radha Scott DO PREOPERATIVE DIAGNOSES: Pre-op Diagnosis * Epistaxis [R04.0] POSTOPERATIVE DIAGNOSES: same PROCEDURE: Procedure(s): LEFT CONTROL OF ANTERIOR NASAL HEMORRHAGE, COMPLEX ANESTHESIA: General COMPLICATIONS: NONE ESTIMATED BLOOD LOSS: None GROSS FINDINGS: Prominent varices left anterior septum - friable. DESCRIPTION OF PROCEDURE: The patient was draped in the usual sterile fashion. Anterior rhinoscopy was performed using a nasal speculum. Afrin packs were placed into the left and right nasal cavities. Following adequate time for vasoconstriction the packs were removed. The suction cautery unit was taken. There was a hypervascular area noted to the anterior septal mucosa region. Complex cauterization was performed to the varicosity. The varix was cauterized in a stepwise fashion until it was cautery ablated. Afrin packs were reapplied and subsequently removed. Final reinspection confirmed hemostasis. Saline gel was topically applied to the anterior septal mucosal region. The patient tolerated the closed reduction without incident. documented in this [facility]04-18-2024 Note* Perioperative Nursing Note - Mercedes Rodriguez RN - 09/29/2023 10:52 AM EDT Patient is transported to same day surgery for discharge and is brought to bedside. She is alert and has no complaints. Discharge instructions reviewed with pt and and she states she is ready to go home. Iv discontinued and report is given to coral [id number] Note* Perioperative Nursing Note - Mercedes Rodriguez RN - 09/29/2023 10:52 AM EDT Patient is transported to same day surgery for discharge and is brought to bedside. She is alert and has no complaints. Discharge instructions reviewed with pt and and she states she is ready to go home. Iv discontinued and report is given to coral [place] [id number] Note* Perioperative Nursing Note - Soumya Marquez RN - 09/29/2023 10:00 AM EDT Pt received from OR via cart, spont. Resp. With HEAT TREATMENT TECHNICIAN in attendance. Placed on monitor. Monitor alarms on in PACU [place] [id number] Note* Perioperative Nursing Note - Soumya Marquez RN - 09/29/2023 10:00 AM EDT Pt received from OR via cart, spont. Resp. With HEAT TREATMENT TECHNICIAN in attendance. Placed on monitor. Monitor alarms on in PACU [id number] Note* Op Note - Radha Scott DO - 09/29/2023 9:34 AM EDT OPERATIVE NOTE Patient Name: Cydney Brown DATE OF PROCEDURE: 09/29/2023 SURGEON: Radha Scott DO PREOPERATIVE DIAGNOSES: Pre-op Diagnosis * Epistaxis [R04.0] POSTOPERATIVE DIAGNOSES: same PROCEDURE: Procedure(s): LEFT CONTROL OF ANTERIOR NASAL HEMORRHAGE, COMPLEX ANESTHESIA: General COMPLICATIONS: NONE ESTIMATED BLOOD LOSS: None GROSS FINDINGS: Prominent varices left anterior septum - friable. DESCRIPTION OF PROCEDURE: The patient was draped in the usual sterile fashion. Anterior rhinoscopy was performed using a nasal speculum. Afrin packs were placed into the left and right nasal cavities. Following adequate time for vasoconstriction the packs were removed. The suction cautery unit was taken. There was a hypervascular area noted to the anterior septal mucosa region. Complex cauterization was performed to the varicosity. The varix was cauterized in a stepwise fashion until it was cautery ablated. Afrin packs were reapplied and subsequently removed. Final reinspection confirmed hemostasis. Saline gel was topically applied to the anterior septal mucosal region. The patient tolerated the closed reduction without incident. T [id number] Note* Op Note - Radha Scott DO - 09/29/2023 9:34 AM EDT OPERATIVE NOTE Patient Name: Cydney Brown DATE OF PROCEDURE: 09/29/2023 SURGEON: Radha Scott DO PREOPERATIVE DIAGNOSES: Pre-op Diagnosis * Epistaxis [R04.0] POSTOPERATIVE DIAGNOSES: same PROCEDURE: Procedure(s): LEFT CONTROL OF ANTERIOR NASAL HEMORRHAGE, COMPLEX ANESTHESIA: General COMPLICATIONS: NONE ESTIMATED BLOOD LOSS: None GROSS FINDINGS: Prominent varices left anterior septum - friable. DESCRIPTION OF PROCEDURE: The patient was draped in the usual sterile fashion. Anterior rhinoscopy was performed using a nasal speculum. Afrin packs were placed into the left and right nasal cavities. Following adequate time for vasoconstriction the packs were removed. The suction cautery unit was taken. There was a hypervascular area noted to the anterior septal mucosa region. Complex cauterization was performed to the varicosity. The varix was cauterized in a stepwise fashion until it was cautery ablated. Afrin packs were reapplied and subsequently removed. Final reinspection confirmed hemostasis. Saline gel was topically applied to the anterior septal mucosal region. The patient tolerated the closed reduction without incident. [id number] [facility] Discharge instructions* Discharge Instructions* Radha Scott DO - 09/29/2023 9:17 AM EDT Cauterization of Nose Home Instructions Dr. Radha Scott 1. Maintain head elevation 2. Nasal congestion and dryness is to be expected for 2 -3 weeks 3. Apply saline nasal gel to the nostril 3 times daily for 14 days to assist with the healing process. This will also minimize nasal dryness. 4. You may gently blow the nose and pat dry. Avoid wiping, rubbing, or other manipulation of the nose. 5. Resume home medications unless instructed otherwise. 6. You may use ibuprofen as directed for supplemental relief of discomfort. 7. Call the office with any problems, questions, or concerns. Office Number: [phone] IF YOU HAVE AN EMERGENCY, AND ARE UNABLE TO REACH THE DOCTOR AT THE ABOVE NUMBER, CALL OR GO TO [facility] EMERGENCY ROOM [phone] For patients who have had general anesthesia: 1. The medicine used to put you to sleep will be acting in your body for the next 24 hours, so you might feel a little sleepy. This feeling will slowly vega off. Because the medicine is still in yoursystem, for the next 24 hours, the adult patient should not: A. Drive a car, operate machinery or power tools B. Drink any alcoholic drinks (not even beer) C. Make any important decisions, IE: Sign important papers. 2. Children should rest at home, but may be up and about according to the doctor's instructions. * Attachments The following attachments cannot be sent through Care Everywhere. * General Anesthesia Discharge Instructions (Hungarian) documented in this [facility]04-18-2024 Attending History and physical note* Radha Scott DO - 09/29/2023 9:16 AM EDT H&P reviewed. The patient was examined and there are no changes to the H&P. Source Note - OG Colón - 09/23/2023 8:30 AM EDT 2Comprehensive PreSurgical History and Physical ? Name: Cydney Brown : 2000 (Age-23 y.o.) Date of Service: Pt seen/examined on 09/23/2023 Procedure Information Date/Time: 09/29/23 1000 Procedure: LEFT CONTROL OF ANTERIOR NASAL HEMORRHAGE, COMPLEX (Left: Nose) - total time 30 minutes Location: [address] Operating Room Surgeons: Radha Scott DO Chief Complaint: Epistaxis ASSESSMENT/PLAN: Patient is considered low/intermediate risk for this low/intermediate risk procedure/surgery noted above () with no reducible risk factors. Based on the above evaluation, the benefits of the planned procedure likely exceed the risks. The patient is medically optimized to proceed with the planned procedure without any further cardiopulmonary testing. 1) Epistaxis Managed per surgery 2) Asthma Per patient, feels at baseline Using rescue inhaler rarely Continue inhalers day of surgery Visit Type: Pre-Admission Testing Visit Labs Ordered: NO - NOT INDICATED FOR THIS PROCEDURE Sleep Referral Ordered: NO - NEGATIVE SCREEN PER SLEEP REFERRAL PROTOCOL Patient did not name a surrogate decision-maker or provide an advance care plan. Total time spent (which include face to face and non face to face encounters) : 30 minutes Toxic drug monitoring/narrow therapeutic index drug monitoring : # Drug name : n/a # Route administered : n/a # Method of monitoring : n/a PAT Protocol referenced includes: 1. Anesthesia Lab Protocol Orders 2. Perioperative Cardiovascular Risk Assessment 3. Anesthesia Assessment 4. Pain Assessment and Acute Pain Service Consult (if appropriate) 5. Medical Clearance/Consult from Internal Medicine (IMS) 6. Shower/Wash Order (for designated surgeries) 7. HERSON Screen and Sleep Clinic Referral (if appropriate) History Of Present Illness: 23 y.o. female who presents with chief complaint mentioned above. Pt long history of nose bleeds. Had cauterization couple years ago and it helped. Pt reports this past winter the nose bleeds started occurring again. Pt has seen the surgeon and elected for above procedure. Denies Hx of HTN, DM, COPD, HERSON, CAD, CHF, a fib, NM, TIA/CVA, DVT/PE Hx problems with anesthesia? -wakes up crying Missing wisdom teeth Past Medical History: Past Medical History: No date: Asthma No date: Epistaxis requiring cauterization Past Surgical History: Past Surgical History: No date: DILATION AND CURETTAGE OF UTERUS No date: WISDOM TOOTH EXTRACTION Medications Prior to Admission: Current Outpatient Medications: ALBUTEROL SULFATE HFA IN, Inhale 2 puffs as needed., Disp: , Rfl: CHRONIC NARCOTIC USE: No Allergies: Patient has no known allergies. If patient has opioid allergy, is it okay to take Acetaminophen: N/A Social History: TOBACCO: reports that she has never smoked. She has never used smokeless tobacco. ETOH: reports that she does not currently use alcohol. Social History Substance and Sexual Activity Drug Use Never Family History: No family history on file. REVIEW OF SYSTEMS: Review of Systems Constitutional: Negative for chills and fever. Respiratory: Negative for shortness of breath. Cardiovascular: Negative for chest pain. Pertinent positives as noted in the HPI. Physical Exam: Physical Exam Constitutional: General: She is awake. She is not in acute distress. Appearance: Normal appearance. HENT: Head: Normocephalic and atraumatic. Eyes: Extraocular Movements: Extraocular movements intact. Conjunctiva/sclera: Conjunctivae normal. Cardiovascular: Rate and Rhythm: Normal rate and regular rhythm. Heart sounds: Normal heart sounds. Pulmonary: Effort: Pulmonary effort is normal. Breath sounds: Normal breath sounds. Abdominal: Palpations: Abdomen is soft. Musculoskeletal: General: Normal range of motion. Cervical back: Normal range of motion. Skin: General: Skin is warm and dry. Neurological: General: No focal deficit present. Mental Status: She is alert and oriented to person, place, and time. Psychiatric: Mood and Affect: Mood normal. Behavior: Behavior normal. Vitals: Vitals Value Taken Time BP 126/81 09/23/23 0849 Temp 36.1 C (97 F) 09/23/23 0849 Pulse 88 09/23/23 0849 Resp 16 09/23/23 0849 SpO2 98 % 09/23/23 0849 BP 126/81 Pulse 88 Temp 36.1 C (97 F) (Temporal) Resp 16 Ht 1.676 m (5' 6) Wt 85.5 kg (188 lb 6.4 oz) LMP 07/31/2023 (Exact Date) SpO2 98% Yes BMI 30.41 kg/m Labs: No results found for: WBC, HGB, HCT, MCV, PLT No results found for: NA, K, CL, CO2, BUN, CREATININE, GLUCOSE, CALCIUM, PROT, BILIRUBINFL, ALKPHOS, AST, ALT, EGFR, GLOB Scooter's Simple Cardiac Risk Index: SCOOTER'S SIMPLE CARDIAC RISK SCORE: 0 Interpretation: 0 Points Class I 0.5% 1 Point Class II 1.3% 2 Points Class III 3.6% 3+ Points Class IV 9.1% METS >4 METS (Able to climb a flight of stairs with no chest pain or shortness of breath): Yes Walk indoors, such as around the house (1.75 METs), Do light work around the house, such as dusting or washing dishes (2.70 METs), Take care of self, that is eating, dressing, bathing, using the toilet (2.75 METs), Do moderate work around the house such as vacuuming, sweeping floors, or carrying in groceries (3.50 METs), Do yardwork, such as raking leaves, weeding,or pushing a power mower (4.50 METs), Climb a flight of stairs or walk up a hill (5.50 METs) PAT Pain Score: 0 Postop Pain Management Plan (Pain consult ordered?): Pain consult not indicated at this time ? EKG: N/a No results found for this or any previous visit (from the past 4464 hour(s)). ECHO and EF:None on file No components found for: LVEF, LVEFMODE Electronically signed by: OG Colón Date: 09/23/2023 at 9:40 AM [employer] Phone: [phone] History and physical note* Radha Scott DO - 09/29/2023 9:16 AM EDT H&P reviewed. The patient was examined and there are no changes to the H&P. Source Note - OG Colón - 09/23/2023 8:30 AM EDT 2Comprehensive PreSurgical History and Physical ? Name: Cydney Brown : 2000 (Age-23 y.o.) Date of Service: Pt seen/examined on 09/23/2023 Procedure Information Date/Time: 09/29/23 1000 Procedure: LEFT CONTROL OF ANTERIOR NASAL HEMORRHAGE, COMPLEX (Left: Nose) - total time 30 minutes Location: [address] Operating Room Surgeons: Radha Scott DO Chief Complaint: Epistaxis ASSESSMENT/PLAN: Patient is considered low/intermediate risk for this low/intermediate risk procedure/surgery noted above () with no reducible risk factors. Based on the above evaluation, the benefits of the planned procedure likely exceed the risks. The patient is medically optimized to proceed with the planned procedure without any further cardiopulmonary testing. 1) Epistaxis Managed per surgery 2) Asthma Per patient, feels at baseline Using rescue inhaler rarely Continue inhalers day of surgery Visit Type: Pre-Admission Testing Visit Labs Ordered: NO - NOT INDICATED FOR THIS PROCEDURE Sleep Referral Ordered: NO - NEGATIVE SCREEN PER SLEEP REFERRAL PROTOCOL Patient did not name a surrogate decision-maker or provide an advance care plan. Total time spent (which include face to face and non face to face encounters) : 30 minutes Toxic drug monitoring/narrow therapeutic index drug monitoring : # Drug name : n/a # Route administered : n/a # Method of monitoring : n/a PAT Protocol referenced includes: 1. Anesthesia Lab Protocol Orders 2. Perioperative Cardiovascular Risk Assessment 3. Anesthesia Assessment 4. Pain Assessment and Acute Pain Service Consult (if appropriate) 5. Medical Clearance/Consult from Internal Medicine (IMS) 6. Shower/Wash Order (for designated surgeries) 7. HERSON Screen and Sleep Clinic Referral (if appropriate) History Of Present Illness: 23 y.o. female who presents with chief complaint mentioned above. Pt long history of nose bleeds. Had cauterization couple years ago and it helped. Pt reports this past winter the nose bleeds started occurring again. Pt has seen the surgeon and elected for above procedure. Denies Hx of HTN, DM, COPD, HERSON, CAD, CHF, a fib, NM, TIA/CVA, DVT/PE Hx problems with anesthesia? -wakes up crying Missing wisdom teeth Past Medical History: Past Medical History: No date: Asthma No date: Epistaxis requiring cauterization Past Surgical History: Past Surgical History: No date: DILATION AND CURETTAGE OF UTERUS No date: WISDOM TOOTH EXTRACTION Medications Prior to Admission: Current Outpatient Medications: ALBUTEROL SULFATE HFA IN, Inhale 2 puffs as needed., Disp: , Rfl: CHRONIC NARCOTIC USE: No Allergies: Patient has no known allergies. If patient has opioid allergy, is it okay to take Acetaminophen: N/A Social History: TOBACCO: reports that she has never smoked. She has never used smokeless tobacco. ETOH: reports that she does not currently use alcohol. Social History Substance and Sexual Activity Drug Use Never Family History: No family history on file. REVIEW OF SYSTEMS: Review of Systems Constitutional: Negative for chills and fever. Respiratory: Negative for shortness of breath. Cardiovascular: Negative for chest pain. Pertinent positives as noted in the HPI. Physical Exam: Physical Exam Constitutional: General: She is awake. She is not in acute distress. Appearance: Normal appearance. HENT: Head: Normocephalic and atraumatic. Eyes: Extraocular Movements: Extraocular movements intact. Conjunctiva/sclera: Conjunctivae normal. Cardiovascular: Rate and Rhythm: Normal rate and regular rhythm. Heart sounds: Normal heart sounds. Pulmonary: Effort: Pulmonary effort is normal. Breath sounds: Normal breath sounds. Abdominal: Palpations: Abdomen is soft. Musculoskeletal: General: Normal range of motion. Cervical back: Normal range of motion. Skin: General: Skin is warm and dry. Neurological: General: No focal deficit present. Mental Status: She is alert and oriented to person, place, and time. Psychiatric: Mood and Affect: Mood normal. Behavior: Behavior normal. Vitals: Vitals Value Taken Time BP 126/81 09/23/23 0849 Temp 36.1 C (97 F) 09/23/23 0849 Pulse 88 09/23/23 0849 Resp 16 09/23/23 0849 SpO2 98 % 09/23/23 0849 BP 126/81 Pulse 88 Temp 36.1 C (97 F) (Temporal) Resp 16 Ht 1.676 m (5' 6) Wt 85.5 kg (188 lb 6.4 oz) LMP 07/31/2023 (Exact Date) SpO2 98% Yes BMI 30.41 kg/m Labs: No results found for: WBC, HGB, HCT, MCV, PLT No results found for: NA, K, CL, CO2, BUN, CREATININE, GLUCOSE, CALCIUM, PROT, BILIRUBINFL, ALKPHOS, AST, ALT, EGFR, GLOB Scooter's Simple Cardiac Risk Index: SCOOTER'S SIMPLE CARDIAC RISK SCORE: 0 Interpretation: 0 Points Class I 0.5% 1 Point Class II 1.3% 2 Points Class III 3.6% 3+ Points Class IV 9.1% METS >4 METS (Able to climb a flight of stairs with no chest pain or shortness of breath): Yes Walk indoors, such as around the house (1.75 METs), Do light work around the house, such as dusting or washing dishes (2.70 METs), Take care of self, that is eating, dressing, bathing, using the toilet (2.75 METs), Do moderate work around the house such as vacuuming, sweeping floors, or carrying in groceries (3.50 METs), Do yardwork, such as raking leaves, weeding,or pushing a power mower (4.50 METs), Climb a flight of stairs or walk up a hill (5.50 METs) PAT Pain Score: 0 Postop Pain Management Plan (Pain consult ordered?): Pain consult not indicated at this time ? EKG: N/a No results found for this or any previous visit (from the past 4464 hour(s)). ECHO and EF:None on file No components found for: LVEF, LVEFMODE Electronically signed by: OG Colón Date: 09/23/2023 at 9:40 AM documented in this [facility]04-12-2024 NotePatient: Cydney Brown Procedure Information Date/Time: 09/29/23 1000 Procedure: LEFT CONTROL OF ANTERIOR NASAL HEMORRHAGE, COMPLEX (Left: Nose) - total time 30 minutes Location: [address] Operating Room Surgeons: Radha Scott, Relevant Problems Anesthesia (-) Delayed emergence from anesthesia (-) Difficult intravenous access (-) Family history of malignant hyperthermia (-) Malignant hyperthermia (-) Motion sickness (-) HERSON (obstructive sleep apnea) (-) PONV (postoperative nausea and vomiting) Pulmonary (-) HERSON (obstructive sleep apnea) Past Medical History: Past Medical History: No date: Asthma No date: Epistaxis requiring cauterization Past Surgical History: Past Surgical History: No date: DILATION AND CURETTAGE OF UTERUS No date: WISDOM TOOTH EXTRACTION Social History: TOBACCO: reports that she has never smoked. She has never used smokeless tobacco. ETOH: reports that she does not currently use alcohol. Social History Substance and Sexual Activity Drug Use Never Family History: No family history on file. Screening: Having periods Clinical information reviewed: Tobacco Allergies Meds Med Hx Surg Hx OB Status Fam Hx Soc Hx Physical Exam Airway Mallampati: II TM distance: >3 FB Neck ROM: full Mouth Open: normal Cardiovascular Dental (+) Missing Comments: missing wisdom teeth Nothing loose or broken No partials or dentures Pulmonary Abdominal Anesthesia Plan patient is NPO appropriate Any family history or previous problems with anesthesia no ASA 2 general Any family history or previous problems with anesthesia no The patient is not a current smoker. Anesthetic plan and risks discussed with patient. Use of blood products discussed with who consented to blood products. HERSON Screening STOP-Bang Total Score: 0 Labs: No results found for: WBC, HGB, HCT, MCV, PLT No results found for: NA, K, CL, CO2, BUN, CREATININE, GLUCOSE, CALCIUM, PROT, BILIRUBINFL, ALKPHOS, AST, ALT, EGFR, GLOB No echocardiogram results found for the past 14 days No results found for this or any previous visit.[facility] 09-23-2023 [id number] PreSurgical History and Physical ? Name: Cydney Brown : 2000 (Age-23 y.o.) Date of Service: Pt seen/examined on 09/23/2023 Procedure Information Date/Time: 09/29/23 1000 Procedure: LEFT CONTROL OF ANTERIOR NASAL HEMORRHAGE, COMPLEX (Left: Nose) - total time 30 minutes Location: [address] Operating Room Surgeons: Radha Scott DO Chief Complaint: Epistaxis ASSESSMENT/PLAN: Patient is considered low/intermediate risk for this low/intermediate risk procedure/surgery noted above () with no reducible risk factors. Based on the above evaluation, the benefits of the planned procedure likely exceed the risks. The patient is medically optimized to proceed with the planned procedure without any further cardiopulmonary testing. 1) Epistaxis Managed per surgery 2) Asthma Per patient, feels at baseline Using rescue inhaler rarely Continue inhalers day of surgery Visit Type: Pre-Admission Testing Visit Labs Ordered: NO - NOT INDICATED FOR THIS PROCEDURE Sleep Referral Ordered: NO - NEGATIVE SCREEN PER SLEEP REFERRAL PROTOCOL Patient did not name a surrogate decision-maker or provide an advance care plan. Total time spent (which include face to face and non face to face encounters) : 30 minutes Toxic drug monitoring/narrow therapeutic index drug monitoring : # Drug name : n/a # Route administered : n/a # Method of monitoring : n/a PAT Protocol referenced includes: 1. Anesthesia Lab Protocol Orders 2. Perioperative Cardiovascular Risk Assessment 3. Anesthesia Assessment 4. Pain Assessment and Acute Pain Service Consult (if appropriate) 5. Medical Clearance/Consult from Internal Medicine (IMS) 6. Shower/Wash Order (for designated surgeries) 7. HERSON Screen and Sleep Clinic Referral (if appropriate) History Of Present Illness: 23 y.o. female who presents with chief complaint mentioned above. Pt long history of nose bleeds. Had cauterization couple years ago and it helped. Pt reports this past winter the nose bleeds started occurring again. Pt has seen the surgeon and elected for above procedure. Denies Hx of HTN, DM, COPD, HERSON, CAD, CHF, a fib, NM, TIA/CVA, DVT/PE Hx problems with anesthesia? -wakes up crying Missing wisdom teeth Past Medical History: Past Medical History: No date: Asthma No date: Epistaxis requiring cauterization Past Surgical History: Past Surgical History: No date: DILATION AND CURETTAGE OF UTERUS No date: WISDOM TOOTH EXTRACTION Medications Prior to Admission: Current Outpatient Medications: ALBUTEROL SULFATE HFA IN, Inhale 2 puffs as needed., Disp: , Rfl: CHRONIC NARCOTIC USE: No Allergies: Patient has no known allergies. If patient has opioid allergy, is it okay to take Acetaminophen: N/A Social History: TOBACCO: reports that she has never smoked. She has never used smokeless tobacco. ETOH: reports that she does not currently use alcohol. Social History Substance and Sexual Activity Drug Use Never Family History: No family history on file. REVIEW OF SYSTEMS: Review of Systems Constitutional: Negative for chills and fever. Respiratory: Negative for shortness of breath. Cardiovascular: Negative for chest pain. Pertinent positives as noted in the HPI. Physical Exam: Physical Exam Constitutional: General: She is awake. She is not in acute distress. Appearance: Normal appearance. HENT: Head: Normocephalic and atraumatic. Eyes: Extraocular Movements: Extraocular movements intact. Conjunctiva/sclera: Conjunctivae normal. Cardiovascular: Rate and Rhythm: Normal rate and regular rhythm. Heart sounds: Normal heart sounds. Pulmonary: Effort: Pulmonary effort is normal. Breath sounds: Normal breath sounds. Abdominal: Palpations: Abdomen is soft. Musculoskeletal: General: Normal range of motion. Cervical back: Normal range of motion. Skin: General: Skin is warm and dry. Neurological: General: No focal deficit present. Mental Status: She is alert and oriented to person, place, and time. Psychiatric: Mood and Affect: Mood normal. Behavior: Behavior normal. Vitals: Vitals Value Taken Time BP 126/81 09/23/23 0849 Temp 36.1 ?C (97 ?F) 09/23/23 0849 Pulse 88 09/23/23 0849 Resp 16 09/23/23 0849 SpO2 98 % 09/23/23 0849 BP 126/81 Pulse 88 Temp 36.1 ?C (97 ?F) (Temporal) Resp 16 Ht 1.676 m (5' 6) Wt 85.5 kg (188 lb 6.4 oz) LMP 07/31/2023 (Exact Date) SpO2 98% Yes BMI 30.41 kg/m? Labs: No results found for: WBC, HGB, HCT, MCV, PLT No results found for: NA, K, CL, CO2, BUN, CREATININE, GLUCOSE, CALCIUM, PROT, BILIRUBINFL, ALKPHOS, AST, ALT, EGFR, GLOB Scooter's Simple Cardiac Risk Index: SCOOTER'S SIMPLE CARDIAC RISK SCORE: 0 Interpretation: 0 Points Class I 0.5% 1 (more content not included)...[facility]04-12-2024 Note 2Comprehensive PreSurgical History and Physical ? Name: Cydney Brown : 2000 (Age-23 y.o.) Date of Service: Pt seen/examined on 09/23/2023 Procedure Information Date/Time: 09/29/23 1000 Procedure: LEFT CONTROL OF ANTERIOR NASAL HEMORRHAGE, COMPLEX (Left: Nose) - total time 30 minutes Location: [address] Operating Room Surgeons: Radha Scott DO Chief Complaint: Epistaxis ASSESSMENT/PLAN: Patient is considered low/intermediate risk for this low/intermediate risk procedure/surgery noted above () with no reducible risk factors. Based on the above evaluation, the benefits of the planned procedure likely exceed the risks. The patient is medically optimized to proceed with the planned procedure without any further cardiopulmonary testing. 1) Epistaxis Managed per surgery 2) Asthma Per patient, feels at baseline Using rescue inhaler rarely Continue inhalers day of surgery Visit Type: Pre-Admission Testing Visit Labs Ordered: NO - NOT INDICATED FOR THIS PROCEDURE Sleep Referral Ordered: NO - NEGATIVE SCREEN PER SLEEP REFERRAL PROTOCOL Patient did not name a surrogate decision-maker or provide an advance care plan. Total time spent (which include face to face and non face to face encounters) : 30 minutes Toxic drug monitoring/narrow therapeutic index drug monitoring : # Drug name : n/a # Route administered : n/a # Method of monitoring : n/a PAT Protocol referenced includes: 1. Anesthesia Lab Protocol Orders 2. Perioperative Cardiovascular Risk Assessment 3. Anesthesia Assessment 4. Pain Assessment and Acute Pain Service Consult (if appropriate) 5. Medical Clearance/Consult from Internal Medicine (IMS) 6. Shower/Wash Order (for designated surgeries) 7. HERSON Screen and Sleep Clinic Referral (if appropriate) History Of Present Illness: 23 y.o. female who presents with chief complaint mentioned above. Pt long history of nose bleeds. Had cauterization couple years ago and it helped. Pt reports this past winter the nose bleeds started occurring again. Pt has seen the surgeon and elected for above procedure. Denies Hx of HTN, DM, COPD, HERSON, CAD, CHF, a fib, NM, TIA/CVA, DVT/PE Hx problems with anesthesia? -wakes up crying Missing wisdom teeth Past Medical History: Past Medical History: No date: Asthma No date: Epistaxis requiring cauterization Past Surgical History: Past Surgical History: No date: DILATION AND CURETTAGE OF UTERUS No date: WISDOM TOOTH EXTRACTION Medications Prior to Admission: Current Outpatient Medications: ALBUTEROL SULFATE HFA IN, Inhale 2 puffs as needed., Disp: , Rfl: CHRONIC NARCOTIC USE: No Allergies: Patient has no known allergies. If patient has opioid allergy, is it okay to take Acetaminophen: N/A Social History: TOBACCO: reports that she has never smoked. She has never used smokeless tobacco. ETOH: reports that she does not currently use alcohol. Social History Substance and Sexual Activity Drug Use Never Family History: No family history on file. REVIEW OF SYSTEMS: Review of Systems Constitutional: Negative for chills and fever. Respiratory: Negative for shortness of breath. Cardiovascular: Negative for chest pain. Pertinent positives as noted in the HPI. Physical Exam: Physical Exam Constitutional: General: She is awake. She is not in acute distress. Appearance: Normal appearance. HENT: Head: Normocephalic and atraumatic. Eyes: Extraocular Movements: Extraocular movements intact. Conjunctiva/sclera: Conjunctivae normal. Cardiovascular: Rate and Rhythm: Normal rate and regular rhythm. Heart sounds: Normal heart sounds. Pulmonary: Effort: Pulmonary effort is normal. Breath sounds: Normal breath sounds. Abdominal: Palpations: Abdomen is soft. Musculoskeletal: General: Normal range of motion. Cervical back: Normal range of motion. Skin: General: Skin is warm and dry. Neurological: General: No focal deficit present. Mental Status: She is alert and oriented to person, place, and time. Psychiatric: Mood and Affect: Mood normal. Behavior: Behavior normal. Vitals: Vitals Value Taken Time BP 126/81 09/23/23 0849 Temp 36.1 ?C (97 ?F) 09/23/23 0849 Pulse 88 09/23/23 0849 Resp 16 09/23/23 0849 SpO2 98 % 09/23/23 0849 BP 126/81 Pulse 88 Temp 36.1 ?C (97 ?F) (Temporal) Resp 16 Ht 1.676 m (5' 6) Wt 85.5 kg (188 lb 6.4 oz) LMP 07/31/2023 (Exact Date) SpO2 98% Yes BMI 30.41 kg/m? Labs: No results found for: WBC, HGB, HCT, MCV, PLT No results found for: NA, K, CL, CO2, BUN, CREATININE, GLUCOSE, CALCIUM, PROT, BILIRUBINFL, ALKPHOS, AST, ALT, EGFR, GLOB Scooter's Simple Cardiac Risk Index: SCOOTER'S SIMPLE CARDIAC RISK SCORE: 0 Interpretation: 0 Points Class I 0.5% 1 (more content not included)...[facility]08-25-2023 Hospital Discharge instructions Patient Education 02/04/2023 08:30:11 Dilation and Curettage or Vacuum Curettage, Care After, [id number] Dilation and Curettage or Vacuum Curettage, Care After These instructions give you information about caring for yourself after your procedure. Your doctormay also give you more specific instructions. Call your doctor if you have any problems or questions after your procedure. Follow these instructions at home: Activity Do not drive or use heavy machinery while taking prescription pain medicine. For 24 hours after your procedure, avoid driving. Take short walks often, followed by rest periods. Ask your doctor what activities are safe for you.After one or two days, you may be able to return to your normal activities. Do not lift anything that is heavier than 10 lb (4.5 kg) until your doctor approves. For at least 2 weeks, or as long as told by your doctor: ?Do not douche. ?Do not use tampons. ?Do not have sex. General instructions Take [id number] and prescription medicines only as told by your doctor. This is very important if you take blood thinning medicine. Do not take baths, swim, or use a hot tub until your doctor approves. Take showers instead of baths. Wear compression stockings as told by your doctor. It is up to you to get the results of your procedure. Ask your doctor when your results will be ready. Keep all follow-up visits as told by your doctor. This is important. Contact a doctor if: You have very bad cramps that get worse or do not get better with medicine. You have very bad pain in your belly (abdomen). You cannot drink fluids without throwing up (vomiting). You get pain in a different part of the area between your belly and thighs (pelvis). You have bad-smelling discharge from your vagina. You have a rash. Get help right away if: You are bleeding a lot from your vagina. A lot of bleeding means soaking more than one sanitary jefferson an hour, for 2 hours in a row. You have clumps of blood (blood clots) coming from your vagina. You have a fever or chills. Your belly feels very tender or hard. You have chest pain. You have trouble breathing. You cough up blood. You feel dizzy. You feel light-headed. You pass out (faint). You have pain in your neck or shoulder area. Summary Take short walks often, followed by rest periods. Ask your doctor what activities are safe for you.After one or two days, you may be able to return to your normal activities. Do not lift anything that is heavier than 10 lb (4.5 kg) until your doctor approves. Do not take baths, swim, or use a hot tub until your doctor approves. Take showers instead of baths. Contact your doctor if you have any symptoms of infection, like bad-smelling discharge from your vagina. This information is not intended to replace advice given to you by your health care provider. Make sure you discuss any questions you have with your health care provider. Document Released: 03/08/2009 Document Revised: 05/12/2018 Document Reviewed: 02/14/2017 [employer] Patient Education 2020 [employer]. 02/04/2023 08:30:00 Pain Medicine Instructions, [id number] Pain Medicine Instructions You may need pain medicine after an injury or illness. Two common types of pain medicine are: Opioid pain medicine. These may be called opioids. Non-opioid pain medicine. This includes NSAIDs. It is important to follow your doctor's instructions when you are taking pain medicine. Doing this can keep yourself and others safe. How can pain medicine affect me? Pain medicine may not make all of your pain go away. It should make you comfortable enough to: Move. Breathe. Do normal activities. Opioids can cause side effects, such as: Trouble pooping (constipation). Feeling sick to your stomach (nausea). Throwing up (vomiting). Feeling very sleepy. Confusion. Taking the medicine for nonmedical reasons even though taking it hurts your health and well-being (opioid use disorder). Trouble breathing (respiratory depression). Taking opioids for longer than 3 days raises your risk of these side effects. Taking opioids for a long time can affect how well you can do daily tasks. Taking them for a long time also puts you at risk for: Car crashes. Depression. Suicide. Heart attack. Taking too much of the medicine (overdose). This can lead to . What should I do to stay safe while taking pain medicine? Take your medicine as told Take pain medicine exactly as told by your doctor. Take it only when you need it. Write down the times when you take your pain medicine. Look at the times before you take your next dose. Take other dzld-rdx-xwbboxv or prescription medicines only as told by your doctor. ?If your pain medicine has acetaminophen in it, do not take any other acetaminophen while you are taking this medicine. Too much can damage the liver. Get pain medicine prescriptions from only one doctor. Avoid certain activities While you are taking prescription pain medicine, and for 8 hours after your last dose: Do not drive. Do not use machinery. Do not use power tools. Do not sign legal documents. Do not drink alcohol. Do not take sleeping pills. Do not take care of children by yourself. Do not do any activities that involve climbing or being in high places. Do not go into any body of water unless there is an adult nearby who can watch you and help you if needed. This includes: ?Lakes. ?[place]. ?Oceans. ?Spas. ?Swimming pools. Keep others safe Store your medicine as told by your doctor. Keep it where children and pets cannot reach it. Do not share your pain medicine with anyone. Do not save any leftover pills. If you have leftover pills, you can: ?Bring them to a take-back program. ?Bring them to a pharmacy that has a drug disposal container. ?Throw them in the trash. Check the medicine label or package insert to see if it is safe to throw it out. If it is safe, take the medicine out of the container. Mix it with something that makes it unusable, such as pet waste. Then put the medicine in the trash. General instructions Talk with your doctor about other ways to manage your pain. If you have trouble pooping: ?Drink enough fluid to keep your pee (urine) pale yellow. ?Use a poop (stool) softener as told by your doctor. ?Eat more fruits and vegetables. Keep all follow-up visits as told by your doctor. This is important. Contact a doctor if: Your medicine is not helping with your pain. You have a rash. You feel depressed. Get help right away if: Seek medical care right away if you are taking pain medicines and you (or people close to you) notice any of the following: Trouble breathing. Breathing that is shorter than normal. Breathing that is more shallow than normal. Confusion. Sleepiness. Trouble staying awake. Feeling sick to your stomach. Throwing up. Your skin or lips turning pale or bluish in color. Tongue swelling. If you ever feel like you may hurt yourself or others, or have thoughts about taking your own life,get help right away. Go to your nearest emergency department or call: Your local emergency services (911 in the [place] A suicide crisis helpline, such as the National Suicide Prevention Lifeline at . Thisis open 24 hours a day. Summary Take your pain medicine exactly as told by your doctor. Pain medicine can help lower your pain. It may also cause side effects. Talk with your doctor about other ways to manage your pain. Follow your doctor's instructions about how to take your pain medicine and keep others safe. Ask what activities you should avoid while taking pain medicine. This information is not intended to replace advice given to you by your health care provider. Make sure you discuss any questions you have with your health care provider. Document Released: 11/15/2008 Document Revised: 05/12/2018 Document Reviewed: 01/09/2018 [employer] Patient Education 2020 [employer] 02/04/2023 08:29:23 General Anesthesia, Adult, Care After General Anesthesia, Adult, Care After This sheet gives you information about how to care for yourself after your procedure. Your health care provider may also give you more specific instructions. If you have problems or questions, contact your health care provider. What can I expect after the procedure? After the procedure, the following side effects are common: Pain or discomfort at the IV site. Nausea. Vomiting. Sore throat. Trouble concentrating. Feeling cold or chills. Weak or tired. Sleepiness and fatigue. Soreness and body aches. These side effects can affect parts of the body that were not involved in surgery. Follow these instructions at home: For at least 24 hours after the procedure: Have a responsible adult stay with you. It is important to have someone help care for you until youare awake and alert. Rest as needed. Do not: ?Participate in activities in which you could fall or become injured. ?Drive. ?Use heavy machinery. ?Drink alcohol. ?Take sleeping pills or medicines that cause drowsiness. ?Make important decisions or sign legal documents. ?Take care of children on your own. Eating and drinking Follow any instructions from your health care provider about eating or drinking restrictions. When you feel hungry, start by eating small amounts of foods that are soft and easy to digest (bland), such as toast. Gradually return to your regular diet. Drink enough fluid to keep your urine pale yellow. If you vomit, rehydrate by drinking water, juice, or clear broth. General instructions If you have sleep apnea, surgery and certain medicines can increase your risk for breathing problems. Follow instructions from your health care provider about wearing your sleep device: ?Anytime you are sleeping, including during daytime naps. ?While taking prescription pain medicines, sleeping medicines, or medicines that make you drowsy. Return to your normal activities as told by your health care provider. Ask your health care provider what activities are safe for you. Take pcbb-wvg-azuvydn and prescription medicines only as told by your health care provider. If you smoke, do not smoke without supervision. Keep all follow-up visits as told by your health care provider. This is important. Contact a health care provider if: You have nausea or vomiting that does not get better with medicine. You cannot eat or drink without vomiting. You have pain that does not get better with medicine. You are unable to pass urine. You develop a skin rash. You have a fever. You have redness around your IV site that gets worse. Get help right away if: You have difficulty breathing. You have chest pain. You have blood in your urine or stool, or you vomit blood. Summary After the procedure, it is common to have a sore throat or nausea. It is also common to feel tired. Have a responsible adult stay with you for the first 24 hours after general anesthesia. It is important to have someone help care for you until you are awake and alert. When you feel hungry, start by eating small amounts of foods that are soft and easy to digest (bland), such as toast. Gradually return to your regular diet. Drink enough fluid to keep your urine pale yellow. Return to your normal activities as told by your health care provider. Ask your health care provider what activities are safe for you. This information is not intended to replace advice given to you by your health care provider. Make sure you discuss any questions you have with your health care provider. Document Released: 2001 Document Revised: 06/02/2018 Document Reviewed: 01/13/2018 [employer] Patient Education 2020 [employer]. Follow Up Care 02/03/2023 14:19:25 With:MELISA ULLOA MD Address: [address] [place] [phone] When:Within 2 Week(s) [facility] 08-25-2023 Nurse Progress note IV discontinued per protocol. No resistance, catheter intact. Bandage applied. Digitally Signed by Anna Koroma RN on 02/04/2023 09:53 AM [facility]08-25-2023 Summary of episode note Discharge Instructions Thank you for allowing [facility] to assist you with your healthcare needs. The following is importantdischarge information regarding your hospital visit. 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 What to do next Follow Up Appointments Follow Up with MELISA ULLOA MD When In 2 weeks Where: [address] [place] [phone] The Following Activity and Diet Have Been Ordered for You Discharge Activity - Ordered -- Sexual [place] Restricted, 2 weeks, 02/04/23 8:08:00 EDT Discharge Diet - Ordered -- Follow the post-operative/post-procedure diet instructions provided by your physician's office.,02/04/23 8:08:00 EDT Allergies [facility] Medications Please ask your primary doctor or pharmacist before taking any other medication not listed, including over the counter drugs, herbal medications, vitamins and or supplements as they may interact withyour home medications. 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 Unchanged multivitamin with minerals ( Multivitamin + DHA) by mouth Pharmacy Information [facility] #[id number]: [address], [place] [phone] Please take this list to your next doctor s visit. Bring all medications you take, including over the counter medications, herbals and other supplements with you to your doctor s visit. Patients and families are reminded to discard old lists and to update any records with all medication providers or retail pharmacies. Education Materials Dilation and Curettage or Vacuum Curettage, Care After These instructions give you information about caring for yourself after your procedure. Your doctormay also give you more specific instructions. Call your doctor if you have any problems or questions after your procedure. Follow these instructions at home: Activity Do not drive or use heavy machinery while taking prescription pain medicine. For 24 hours after your procedure, avoid driving. Take short walks often, followed by rest periods. Ask your doctor what activities are safe for you.After one or two days, you may be able to return to your normal activities. Do not lift anything that is heavier than 10 lb (4.5 kg) until your doctor approves. For at least 2 weeks, or as long as told by your doctor: ? Do not douche. ? Do not use tampons. ? Do not have sex. General instructions Take mqcp-flc-tjerkia and prescription medicines only as told by your doctor. This is very important if you take blood thinning medicine. Do not take baths, swim, or use a hot tub until your doctor approves. Take showers instead of baths. Wear compression stockings as told by your doctor. It is up to you to get the results of your procedure. Ask your doctor when your results will be ready. Keep all follow-up visits as told by your doctor. This is important. Contact a doctor if: You have very bad cramps that get worse or do not get better with medicine. You have very bad pain in your belly (abdomen). You cannot drink fluids without throwing up (vomiting). You get pain in a different part of the area between your belly and thighs (pelvis). You have bad-smelling discharge from your vagina. You have a rash. Get help right away if: You are bleeding a lot from your vagina. A lot of bleeding means soaking more than one sanitary jefferson an hour, for 2 hours in a row. You have clumps of blood (blood clots) coming from your vagina. You have a fever or chills. Your belly feels very tender or hard. You have chest pain. You have trouble breathing. You cough up blood. You feel dizzy. You feel light-headed. You pass out (faint). You have pain in your neck or shoulder area. Summary Take short walks often, followed by rest periods. Ask your doctor what activities are safe for you.After one or two days, you may be able to return to your normal activities. Do not lift anything that is heavier than 10 lb (4.5 kg) until your doctor approves. Do not take baths, swim, or use a hot tub until your doctor approves. Take showers instead of baths. Contact your doctor if you have any symptoms of infection, like bad-smelling discharge from your vagina. This information is not intended to replace advice given to you by your health care provider. Make sure you discuss any questions you have with your health care provider. Document Released: 03/08/2009 Document Revised: 05/12/2018 Document Reviewed: 02/14/2017 [employer] Patient Education 2020 [employer] Pain Medicine Instructions You may need pain medicine after an injury or illness. Two common types of pain medicine are: Opioid pain medicine. These may be called opioids. Non-opioid pain medicine. This includes NSAIDs. It is important to follow your doctor's instructions when you are taking pain medicine. Doing this can keep yourself and others safe. How can pain medicine affect me? Pain medicine may not make all of your pain go away. It should make you comfortable enough to: Move. Breathe. Do normal activities. Opioids can cause side effects, such as: Trouble pooping (constipation). Feeling sick to your stomach (nausea). Throwing up (vomiting). Feeling very sleepy. Confusion. Taking the medicine for nonmedical reasons even though taking it hurts your health and well-being (opioid use disorder). Trouble breathing (respiratory depression). Taking opioids for longer than 3 days raises your risk of these side effects. Taking opioids for a long time can affect how well you can do daily tasks. Taking them for a long time also puts you at risk for: Car crashes. Depression. Suicide. Heart attack. Taking too much of the medicine (overdose). This can lead to . What should I do to stay safe while taking pain medicine? Take your medicine as told Take pain medicine exactly as told by your doctor. Take it only when you need it. Write down the times when you take your pain medicine. Look at the times before you take your next dose. Take other yjdf-yxh-bpbakzk or prescription medicines only as told by your doctor. ? If your pain medicine has acetaminophen in it, do not take any other acetaminophen while you are taking this medicine. Too much can damage the liver. Get pain medicine prescriptions from only one doctor. Avoid certain activities While you are taking prescription pain medicine, and for 8 hours after your last dose: Do not drive. Do not use machinery. Do not use power tools. Do not sign legal documents. Do not drink alcohol. Do not take sleeping pills. Do not take care of children by yourself. Do not do any activities that involve climbing or being in high places. Do not go into any body of water unless there is an adult nearby who can watch you and help you if needed. This includes: ? Lakes. ? [place]. ? Oceans. ? Spas. ? Swimming pools. Keep others safe Store your medicine as told by your doctor. Keep it where children and pets cannot reach it. Do not share your pain medicine with anyone. Do not save any leftover pills. If you have leftover pills, you can: ? Bring them to a take-back program. ? Bring them to a pharmacy that has a drug disposal container. ? Throw them in the trash. Check the medicine label or package insert to see if it is safe to throw it out. If it is safe, take the medicine out of the container. Mix it with something that makes it unusable, such as pet waste. Then put the medicine in the trash. General instructions Talk with your doctor about other ways to manage your pain. If you have trouble pooping: ? Drink enough fluid to keep your pee (urine) pale yellow. ? Use a poop (stool) softener as told by your doctor. ? Eat more fruits and vegetables. Keep all follow-up visits as told by your doctor. This is important. Contact a doctor if: Your medicine is not helping with your pain. You have a rash. You feel depressed. Get help right away if: Seek medical care right away if you are taking pain medicines and you (or people close to you) notice any of the following: Trouble breathing. Breathing that is shorter than normal. Breathing that is more shallow than normal. Confusion. Sleepiness. Trouble staying awake. Feeling sick to your stomach. Throwing up. Your skin or lips turning pale or bluish in color. Tongue swelling. If you ever feel like you may hurt yourself or others, or have thoughts about taking your own life,get help right away. Go to your nearest emergency department or call: Your local emergency services (911 in the [place] A suicide crisis helpline, such as the National Suicide Prevention Lifeline at . Thisis open 24 hours a day. Summary Take your pain medicine exactly as told by your doctor. Pain medicine can help lower your pain. It may also cause side effects. Talk with your doctor about other ways to manage your pain. Follow your doctor's instructions about how to take your pain medicine and keep others safe. Ask what activities you should avoid while taking pain medicine. This information is not intended to replace advice given to you by your health care provider. Make sure you discuss any questions you have with your health care provider. Document Released: 11/15/2008 Document Revised: 05/12/2018 Document Reviewed: 01/09/2018 [employer] Patient Education 2020 [employer]. General Anesthesia, Adult, Care After This sheet gives you information about how to care for yourself after your procedure. Your health care provider may also give you more specific instructions. If you have problems or questions, contact your health care provider. What can I expect after the procedure? After the procedure, the following side effects are common: Pain or discomfort at the IV site. Nausea. Vomiting. Sore throat. Trouble concentrating. Feeling cold or chills. Weak or tired. Sleepiness and fatigue. Soreness and body aches. These side effects can affect parts of the body that were not involved in surgery. Follow these instructions at home: For at least 24 hours after the procedure: Have a responsible adult stay with you. It is important to have someone help care for you until youare awake and alert. Rest as needed. Do not: ? Participate in activities in which you could fall or become injured. ? Drive. ? Use heavy machinery. ? Drink alcohol. ? Take sleeping pills or medicines that cause drowsiness. ? Make important decisions or sign legal documents. ? Take care of children on your own. Eating and drinking Follow any instructions from your health care provider about eating or drinking restrictions. When you feel hungry, start by eating small amounts of foods that are soft and easy to digest (bland), such as toast. Gradually return to your regular diet. Drink enough fluid to keep your urine pale yellow. If you vomit, rehydrate by drinking water, juice, or clear broth. General instructions If you have sleep apnea, surgery and certain medicines can increase your risk for breathing problems. Follow instructions from your health care provider about wearing your sleep device: ? Anytime you are sleeping, including during daytime naps. ? While taking prescription pain medicines, sleeping medicines, or medicines that make you drowsy. Return to your normal activities as told by your health care provider. Ask your health care provider what activities are safe for you. Take tdsy-puu-wuxqxsn and prescription medicines only as told by your health care provider. If you smoke, do not smoke without supervision. Keep all follow-up visits as told by your health care provider. This is important. Contact a health care provider if: You have nausea or vomiting that does not get better with medicine. You cannot eat or drink without vomiting. You have pain that does not get better with medicine. You are unable to pass urine. You develop a skin rash. You have a fever. You have redness around your IV site that gets worse. Get help right away if: You have difficulty breathing. You have chest pain. You have blood in your urine or stool, or you vomit blood. Summary After the procedure, it is common to have a sore throat or nausea. It is also common to feel tired. Have a responsible adult stay with you for the first 24 hours after general anesthesia. It is important to have someone help care for you until you are awake and alert. When you feel hungry, start by eating small amounts of foods that are soft and easy to digest (bland), such as toast. Gradually return to your regular diet. Drink enough fluid to keep your urine pale yellow. Return to your normal activities as told by your health care provider. Ask your health care provider what activities are safe for you. This information is not intended to replace advice given to you by your health care provider. Make sure you discuss any questions you have with your health care provider. Document Released: 2001 Document Revised: 06/02/2018 Document Reviewed: 01/13/2018 [employer] Patient Education 2020 [employer] Additional Information VACCINATE! IT SAVES LIVES! Members of the community who have not yet received the COVID-19 vaccine and would like to receive it can visit one of [facility] vaccine clinics. There are many vaccine clinic locations within the [facility]. For locations and available times, please visit [email or web address] It is important to note that some COVID mobile vaccine clinics are held outdoors and may be canceled in rainy or stormy conditions. To learn more about pediatric vaccinations (ages 5-11), we invite you to visit the [facility] webpage. [email or web address] learn more about the COVID-19 vaccine, we invite you to visit the CDC website for a list of frequently asked questions.https://www.cdc.gov/coronavirus/2019-ncov/vaccines/faq.html [facility] Patient Portal Access Instructions: Stay connected with your healthcare team and access your personal medical information anytime with the [facility] Patient Portal. Please follow the directions below to create your [facility] account: 1.Access the email account you provided upon registration to the hospital/physician office.2.Look for an invitation email from [facility].3.Open the email and access the invitation link: AcceptInvitation to [facility].4.Fill in the required velasquez to create your account. To access your account, visit [email or web address]. Click the blue button labeled Access Patient Portal and then log in with the username and password that you created in the steps above. You will be able to view your test results, lab results, a summary of your visits, upcoming appointments and more. There is also a convenient messaging option where you can send secure messages to your p rovider. In addition, you will have the ability to download any documents or summaries to your computer and/or send the information securely to a physician. Remember that your healthcare information is confidential, so carefully consider who you will allowto register on the [facility] Patient Portal for access to your information. You can also access the [facility] Patient Portal on the [facility] rashel. Simply click on Patient Portal and then log into your account. If you would like to receive a full copy of your medical records, please contact the [facility] [place] Medical Records Department by calling [phone], Tuesday through Tuesday between 8 a.m. and 4:30 p.m. HOW TO SAFELY DISPOSE OF PRESCRIPTION MEDICATIONS Please use one of the following methods to safely dispose of your unused medications. 1.Use a drug disposal kit: the drug disposal pouch allows you to safely discard your old and unuseddrugs. Ask your nurse to give you one when you are discharged.2.Visit a local take-back location: Many local pharmacies and police departments have programs that collect old and unwanted prescriptiondrugs. Call your local pharmacy or go to http://bit.ly/5E3Sg0j to find one close to you.3.Make use of household items: Use cat litter or old coffee grounds to dispose medications if other options arenot available. Mix your drugs with these household products, seal them in an airtight container andthrow it into the garbage. Call [facility]: [phone] to be sure your drugs can be disposed of in this way. Some medicines may require a different approach.4.Never flush your medications down the toilet. IF YOU HAVE BEEN PRESCRIBED AN OPIOID FOR PAIN If you have been prescribed an opioid (such as hydrocodone, oxycodone or morphine), it is critical to understand the possible side effects and risks of opioid pain medications. Even when taken as directed, opioids can have several side effects including: Tolerance, meaning you might need to take more of a medication for the same pain relief. Nausea, vomiting and/or constipation. Sleepiness, dizziness, dry mouth, confusion, depression or itching. Physical dependence, meaning you have withdrawal symptoms when a medication is stopped, can develop within a few days. KNOW YOUR RESPONSIBILITIES It is important to know exactly how much and how often to take the opioid pain medications you are prescribed. Never take opioids in higher amounts or more often than prescribed. Do not combine opioids with alcohol or other drugs that cause drowsiness, such as benzodiazepines, also known as benzos, including diazepam and alprazolam, muscle relaxants or sleep aids. Never sell or share prescription opioids. This is illegal. Store opioids in a secure place and out of reach of others (including children, family, friends and visitors). The last page of this document has been signed and retained as a CHART COPY. Signatures Patient Education Materials Dilation and Curettage or Vacuum Curettage, Care After, [id number] Pain Medicine Instructions, Mmmv-[id number] General Anesthesia, Adult, Care After Medication Leaflets My discharge plan and instructions have been reviewed and explained to me and I,CYDNEY BROWN understand my current condition and have read and understand these discharge instructions. I have received a written copy of the plan/instructions. If I have questions, I am aware that I should contactmy doctor. Patient/Infrastructure Manager Signature: Date/Time: Relationship to Patient: Witness Name/Signature: Date/Time: [facility]08-25-2023 Note ORIGINAL HISTORY: Retained products of conception COMPARISON: No IMPRESSION: Intraoperative ultrasound provided to the OBGYN service. Interpreted by: Cale Khanna MD Preliminary Report By: Cale Khanna MD Electronically signed By Cale Khanna MD Dictated Date: 02/04/2023 9:49:55 AM Prelim Date: 02/04/2023 9:50:31 AM Sign Date: 02/04/2023 9:50:31 AM Ordering Provider: [facility]08-25-2023 Anesthesiology Consult note Patient: CYDNEY BROWN Age: 22 years Sex: Female : 2000 Associated Diagnoses: None Author: GURMEET JUAREZ APRN-HEAT TREATMENT TECHNICIAN Preoperative Information Time of last food or liquid consumption: 02/03/2023 23:59:00 Anesthesia history Patient's history: negative. Family's history: negative. Review of Systems Ear/Nose/Mouth/Throat: Negative except as documented in history of present illness. Respiratory: Negative except as documented in history of present illness. Cardiovascular: Negative except as documented in history of present illness. Gastrointestinal: Negative except as documented in history of present illness. Genitourinary: Negative except as documented in history of present illness. Endocrine: Negative except as documented in history of present illness. Musculoskeletal: Negative except as documented in history of present illness. Integumentary: Negative except as documented in history of present illness. Neurologic: Negative except as documented in history of present illness. Health Status Allergies: Allergic Reactions (Selected) NKA, Allergies (1) ActiveReaction NKANone Documented Current medications: (Selected) Inpatient Medications Ordered Normal Saline 1,000 mL: 100 mL/hr, Intravenous Prescriptions Prescribed DME MISCellaneous: See Instructions, Spacer chamber, Dx: J45.909, 1 EA, 0 Refill(s) IRON (ferrous sulfate 325 mg) 65 mg oral tablet: 325 mg, 1 tab(s), Oral, qDay, Take with food., 30 tab(s), 3 Refill(s) Ventolin HFA MDI (90 mcg/inh) inhalation aerosol: 2 puff(s), Inhalation, q4h, PRN: as needed for wheezing, 6.7 gram(s), 0 Refill(s) ibuprofen 800 mg oral tablet: 800 mg, 1 tab(s), Oral, q8h, for 14 day(s), 42 tab(s), 0 Refill(s) Documented Medications Documented Multivitamin + DHA: Oral, 0 Refill(s), Medications (1) Active Scheduled: (0) Continuous: (1) NS (0.9% nacl) 1,000 mL 1,000 mL, Intravenous, 100 mL/hr PRN: (0) Problem list: Medical Asthma / SNOMED CT 788869386 / Confirmed Endometriosis of pelvis / SNOMED CT 42549621 / Confirmed Excess weight gain in / SNOMED CT 6568345632 / Confirmed Gastric reflux / SNOMED CT 813978109 / Confirmed Migraine / SNOMED CT 12501226 / Confirmed / SNOMED CT 505847636 / Confirmed Scoliosis / SNOMED CT 470522382 / Confirmed Right ankle swelling / SNOMED CT 2216573606 / Confirmed Viral URI / SNOMED CT 083233239 / Confirmed Resolved: COVID-19 / SNOMED CT 7716843856 Resolved: Dysmenorrhea / SNOMED CT 676923601 Resolved: Dyspareunia, female / SNOMED CT 688912297 Resolved: Right ankle sprain / SNOMED CT 08028117 Canceled: Upper respiratory disease / SNOMED CT 7213497293 Canceled: Viral URI with cough / SNOMED CT 638330066, Active Problems (9) Asthma Endometriosis of pelvis Excess weight gain in Gastric reflux Migraine Right ankle swelling Scoliosis Viral URI Histories Past Medical History: Resolved Dysmenorrhea (970479501): Resolved. COVID-19 (1022285224): Resolved. Dyspareunia, female (594047941): Resolved. Right ankle sprain (21937409): Resolved. Family History: Breast cancer Grandparent Heart attack Grandparent Depression Grandparent Liver disease Paternal Grandfather Skin cancer Grandparent Diabetes Grandparent Paternal Aunt Mitral valve disorder Mother Procedure history: Nasal cautery (463619131). Creola tooth (16498315). Social History Social & Psychosocial Habits Alcohol 02/04/2023 Use: Never Substance Abuse 02/04/2023 Use: Never Tobacco 02/04/2023 Tobacco Use: Never (less than 100 in l Exposure to Tobacco Smoke Lives in non-smoking home Nutrition/Health 02/04/2023 Caffeine intake amount: 1-2 servings daily . Physical Examination Vital Signs 02/04/2023 7:20 EDT Heart Rate Monitored 78 bpm bpm Respiratory Rate - Anes 18 br/min br/min 02/04/2023 7:15 EDT Heart Rate Monitored 74 bpm bpm Respiratory Rate - Anes 15 br/min br/min Systolic Blood Pressure Non-Invasive 91 mmHg mmHg Diastolic Blood Pressure Non-Invasive 50 mmHg mmHg 02/04/2023 7:10 EDT Heart Rate Monitored 75 bpm bpm Respiratory Rate - Anes 12 br/min br/min Systolic Blood Pressure Non-Invasive 91 mmHg mmHg Diastolic Blood Pressure Non-Invasive 50 mmHg mmHg 02/04/2023 7:05 EDT Heart Rate Monitored 73 bpm bpm Respiratory Rate - Anes 0 br/min br/min Systolic Blood Pressure Non-Invasive 94 mmHg mmHg Diastolic Blood Pressure Non-Invasive 60 mmHg mmHg 02/04/2023 7:01 EDT Systolic Blood Pressure Non-Invasive 103 mmHg mmHg Diastolic Blood Pressure Non-Invasive 85 mmHg mmHg 02/04/2023 7:00 EDT Respiratory Rate - Anes 0 br/min br/min 02/04/2023 6:55 EDT Respiratory Rate - Anes 0 br/min br/min 02/04/2023 6:06 EDT Temperature Oral 35.3 DegC LOW Apical Heart Rate 81 bpm Respiratory Rate 15 br/min Systolic Blood Pressure Invasive 106 mmHg Diastolic Blood Pressure Invasive 71 mmHg 02/03/2023 14:04 EDT Peripheral Pulse Rate 82 bpm Systolic Blood Pressure Non-Invasive 118 mmHg Diastolic Blood Pressure Non-Invasive 76 mmHg Blood Pressure Method Manual Blood Pressure Location Left arm Blood Pressure Cuff Size Small Vital Signs(last 24 hrs) Last Charted Temp OralL 35.3DegC (FEB 04 06:06) Heart Rate [id number] bpm (FEB 04 07:20) Resp Rate 15 br/min (FEB 04 06:06) SBP91 mmHg (FEB 04 07:15) DBP50 mmHg (FEB 04 07:15) BMI26.7 (FEB 04 06:23) Measurements from flowsheet : Measurements 02/04/2023 6:23 EDT Body Mass Index 26.7 kg/m2 02/04/2023 6:06 EDT Height 167.6 cm Admission Weight 75 kg [place] Body Weight 59.26 kg Admission Body Mass Index 26.7 m2 02/03/2023 14:04 EDT Height 167.6 cm Height in inches 66 inch(es) Admission Weight 75 kg Weight Lbs 165 lb [place] Body Weight 59.26 kg BSA Admission 1.84 Body Mass Index 26.7 kg/m2 Pain assessment: Pain Assessment 02/04/2023 6:06 EDT Primary Pain Intensity 0 Pain Scale Type 0-10 Pain scale . General: Alert and oriented. Airway: Normal neck range of motion. Mallampati classification: II (soft palate, fauces, uvula visible). Head: Normocephalic. Dentition Evaluation: Intact, Own teeth. Neck: Full range of motion. Respiratory: Lungs are clear to auscultation. Cardiovascular: Normal rate. Heart Sounds: Normal. Gastrointestinal: Soft. Musculoskeletal Normal range of motion. Integumentary: Intact, Warm, Dry. Neurologic: Alert, Oriented. Review / Management Results review: No qualifying data available , Lab results 02/04/2023 7:28 EDT SN - CAt - Case Attendee SN - CAt - Case Attendee 02/04/2023 7:27 EDT SN - CAt - Role Performed Ring Facer 02/04/2023 7:20 EDT Heart Rate Monitored 78 bpm bpm Respiratory Rate - Anes 18 br/min br/min Oxygen Saturation 98 % % 02/04/2023 7:16 EDT SN - DRS - Site and Details TO PROCEDURE SITE 02/04/2023 7:15 EDT Heart Rate Monitored 74 bpm bpm Respiratory Rate - Anes 15 br/min br/min Systolic Blood Pressure Non-Invasive 91 mmHg mmHg Diastolic Blood Pressure Non-Invasive 50 mmHg mmHg Oxygen Saturation 98 % % acetaminophen 1,000 mg mg dexAMETHasone 4 mg mg ondansetron 4 mg mg AOH MAIN OR Preop & Phase II Record AOH MAIN OR Preop & Phase II Record 02/04/2023 7:13 EDT SN - Cul - Culture Type Tissue in Formalin SN - Cul - Kind Specimen 02/04/2023 7:11 EDT SN - CTm - Surgery Start 02/04/2023 7:11 02/04/2023 7:11 EDT SN - CTm - Surgery Start Surgery Start 02/04/2023 7:10 EDT Heart Rate Monitored 75 bpm bpm Respiratory Rate - Anes 12 br/min br/min Systolic Blood Pressure Non-Invasive 91 mmHg mmHg Diastolic Blood Pressure Non-Invasive 50 mmHg mmHg Oxygen Saturation 98 % % 02/04/2023 7:09 EDT SN - GCD - Post-operative Diagnosis RETAINED PRODUCTS 02/04/2023 7:09 EDT SN - TDC - Device Type CATH URETHRAL 14FR RED RUBBER 100/CA [id number] SN - TDC - Location BLADDER SN - TDC - DC'd at End of Case Yes 02/04/2023 7:09 EDT SN - SP - Prep Agents Betadine Scrub, Betadine Solution SN - SP - HR - Method N/A 02/04/2023 7:07 EDT fentaNYL 50 mcg mcg 02/04/2023 7:05 EDT Heart Rate Monitored 73 bpm bpm Respiratory Rate - Anes 0 br/min br/min Systolic Blood Pressure Non-Invasive 94 mmHg mmHg Diastolic Blood Pressure Non-Invasive 60 mmHg mmHg Oxygen Saturation 100 % % lidocaine 100 mg mg propofol 200 mg mg 02/04/2023 7:03 EDT SN - PP - Body Position Lithotomy Standard Intra-op 02/04/2023 7:02 EDT SN - PTCare - Anti-thromboembolism Alanis Sequential Compression Device (SCD) 02/04/2023 7:01 EDT Systolic Blood Pressure Non-Invasive 103 mmHg mmHg Diastolic Blood Pressure Non-Invasive 85 mmHg mmHg midazolam 2 mg mg 02/04/2023 7:00 EDT Respiratory Rate - Anes 0 br/min br/min 02/04/2023 6:59 EDT SN - CTm - Anesthesia Start Time Anesthesia Start 02/04/2023 6:55 EDT Respiratory Rate - Anes 0 br/min br/min 02/04/2023 6:53 EDT SN - CAt - Case Attendee SN - CAt - Case Attendee 02/04/2023 6:40 EDT SN - Proc - Anesthesia Type General SN - Proc - Actual Procedure DILATION AND CURETTAGE UNDER ULTRASOUND GUIDANCE (Modified) 02/04/2023 6:39 EDT SN - Assess - LOC Alert, Awake SN - Assess - Orientation Oriented X 3 SN - Assess - Post-op Skin Integrity Intact/Dry 02/04/2023 6:39 EDT SN - CAt - Case Attendee SN - CAt - Case Attendee SN - CAt - Case Attendee SN - CAt - Case Attendee SN - CAt - Case Attendee SN - CAt - Case Attendee SN - CAt - Role Performed HEAT TREATMENT TECHNICIAN SN - CAt - Role Performed Archery Equipment Repairer 1 SN - CAt - Role Performed Scrub 1 SN - CAt - Role Performed Food And Beverage Operations Manager 1 02/04/2023 6:32 EDT SN - GCD - Case Level Level 1 02/04/2023 6:31 EDT SN - CAt - Case Attendee SN - CAt - Case Attendee SN - CAt - Role Performed Primary Surgeon 02/04/2023 6:30 EDT [place] Pre-Surgical History & Physical History and Physical Update Note 02/04/2023 6:27 EDT Sodium Chloride 0.9% Begin Bag 1,000 mL mL 02/04/2023 6:25 EDT SN - Preop - CTm Pt Ready for OR/Proced 02/04/2023 6:25 02/04/2023 6:25 EDT SN - Preop - CTm Pt in SDS Room 02/04/2023 6:00 02/04/2023 6:23 EDT Designated Person #1 We May Share RONIT Roberts [facility] [phone] Designated Person #1 Relationship Spouse Privacy Restrictions Requested None Body Mass Index 26.7 kg/m2 Status Sensory Deficits None Sleep Apnea Snore No Sleep Apnea Tired No Sleep Apnea Obstruction No Sleep Apnea Pressure No Sleep Apnea BMI No Sleep Apnea Age No Sleep Apnea Neck No Sleep Apnea Gender No Sleep Apnea Score 0 Diagnosed With Sleep Apnea No Advanced Directives No - refuses information Infectious Disease Symptoms Patient states no symptoms Infectious Disease Recent Exposure No Alcohol and Drug Use No Employee of Institutional Living No Health Care Employee No History of Exposure to TB No History of Positive Chest X-Ray for TB No History of Positive TB Skin Test No Homeless No Known Immunosuppression No Recent Immigrant No Resident of Institutional Living No Bloody Sputum No Fatigue No Fever No Loss of Appetite No Night Sweats No Persistent Cough > 3 Weeks No Weight Loss No Barriers to Learning None evident Teaching Method Explanation Preferred Spoken Language Hungarian Preferred Written Language Hungarian Teaching Evaluation Needs further teaching Safety Brochure Information Reviewed Unable to complete Andie Pfeiffer Video Viewed No Information Given by Spouse Patient's Current Physicians Dr. Lee/ Dr. Ulloa Discharge To, Anticipated Home independently Prev Test Positive/Diagnosis w/COVID-19 Yes Previous COVID-19 Positive Date 06/2021 Current Quarantine/Isolated any Illness No Any Contact with Sick Animals/Birds No Traveled Anywhere in Last 30 Days No Lost Weight Unintentionally Recently No Eat Poorly Due to Decreased Appetite No Total MST Score 0 Yes Personal Devices, Patient Valuables None Anesthesia/Transfusions Prior anesthesia Admission Note-Nursing Same Day Patient History 02/04/2023 6:09 EDT IV Present Present Allergies No Manager Training On Yes Consent Form Signed Yes Patient Dressed In Hospital gown Pre-op Preparation Undergarments removed History & Physical Update On Chart Yes History & Physical On Chart Yes Obstructive Sleep Apnea Assess Completed No Belongings At Bedside Pants, Shoes, Socks, Sweatshirt, Undergarments Personal Home Medications Received No home medications were brought in Belongings Sent Home Bra, Necklace, Wedding band Belongings to Security/Secured in Dept None NPO Status Maintained Allergy Band on and Verified No Patient ID Band on and Verified Yes Implants Verified Yes Pacemaker/AICD Verified Yes Site Verified by Patient/Family Yes Anesthesia Consent Signed Yes Blood Consent Signed Yes Last Fluid Intake 02/03/2023 11:45 Last Food Intake 02/03/2023 21:30 Last Void 02/04/2023 6:14 02/04/2023 6:06 EDT Height 167.6 cm Admission Weight 75 kg [place] Body Weight 59.26 kg Admission Body Mass Index 26.7 m2 Temperature Oral 35.3 DegC LOW Apical Heart Rate 81 bpm Respiratory Rate 15 br/min Systolic Blood Pressure Invasive 106 mmHg Diastolic Blood Pressure Invasive 71 mmHg Primary Pain Intensity 0 Pain Scale Type 0-10 Pain scale Heart Sounds ICU S1S2 Heart Rhythm Regular Respirations Unlabored Breath Sounds Auscultated Anterior and posterior All Lobes Breath Sounds Clear Oxygen Therapy Room air Oxygen Saturation 95 % Abdomen Description Soft Bowel Sounds All Quadrants Present Urinary Elimination Voiding, no difficulties Skin Temperature Warm Skin Description Reliance, Dry Skin Integrity Intact Mucous Membrane Color Reliance Characteristics of Speech Clear Level of Consciousness Alert Strength All Extremities Strong Tone All Extremities Normal Sensation All Extremities Intact Affect/Behavior Appropriate, Calm, Cooperative Orientation Oriented x 4 Nelda Motor (2) Moves 4 extremities voluntarily or on command Nelda Respirations (2) Spontaneous respiration without support, RR > 10 Nelda Blood Pressure (2) BP 20% above or below preanesthetic level Nelda Pulse (2) Pulse 20% above or below preanesthetic level Nelda Oxygen Saturation (2) 94% or more Nelda Level of Consciousness (2) Fully awake Nelda III Score 12 Assistive Device None Activity Assistance Independent Sequential Compression Device right thigh high applied/on Standard Safety ID band on, Bed in low position, Wheels locked, Non-Slip footwear 02/03/2023 14:58 EDT MERCURY WASHER Phone Message Inbound Sales Advisor 02/03/2023 14:19 EDT Gynecology Office Note IRONMOLDER preop Office Visit Note History of Present Illness Documentation History of Present Illness Documentation 02/03/2023 14:07 EDT D-EGA at Documented Date, Time 40W 2D 02/03/2023 14:04 EDT Height 167.6 cm Height in inches 66 inch(es) Admission Weight 75 kg Weight Lbs 165 lb [place] Body Weight 59.26 kg BSA Admission 1.84 Body Mass Index 26.7 kg/m2 Peripheral Pulse Rate 82 bpm Systolic Blood Pressure Non-Invasive 118 mmHg Diastolic Blood Pressure Non-Invasive 76 mmHg Blood Pressure Method Manual Blood Pressure Location Left arm Blood Pressure Cuff Size Small Status Menstrual Status Menarcheal Living Children History 0 0 Para 0 Abortions 0 Chief Complaint Here to go over US results Contraception Type None Quick Intake AMB - Text Ambulatory Quick Intake Amb Preferred Lab [facility] Preferred [facility] 02/03/2023 7:18 EDT CSummary CSUMMARY 02/03/[facility]23 0:[facility] Assessment and Plan [place] [employer] Anesthesiologists (ASA) physical status classification: Class II. Anesthetic Preoperative Plan Premedication: intravenous. Anesthetic technique: General. Induction: intravenously. Maintenance airway: Laryngeal mask airway. Postoperative pain management: Per surgeon. Risks discussed: nausea, vomiting, headache, sore throat, dental injury, hypotension, allergic reaction, serious complications. Informed consent: signed by patient. Digitally Signed by GURMEET JUAREZ on 02/04/2023 07:29 AM [facility]08-25-2023 Note Date of Service 02/04/23 History and Physical Update I have examined the patient; reviewed the History and Physical and there are no changes to the History and Physical unless noted below. History and Physical 22 yo here for D&C for retained products of conception 8 weeks . No changes to H&P 02/03/23. All patient questions answered. Digitally Signed by MELISA ULLOA MD on 02/04/2023 06:32 AM [facility]08-23-2023 Note ORIGINAL EXAMINATION: TRANSVAGINAL and transabdominal PELVIC ULTRASOUND 02/02/2023 TECHNIQUE: Transvaginal and trans abdominal pelvic ultrasound was performed. COMPARISON: Obs ultrasound October 2022, 10/2022 HISTORY: ORDERING SYSTEM PROVIDED HISTORY: Reason for Exam: excessive bleeding, vaginal delivery 8 weeks ago FINDINGS: Measurements: Uterus: 7.3 x 6.2 x 4.1 cm. Endometrial stripe: 13.9 mm. Right Ovary:5.5 x 2.1 x 2.2 cm, 13.6 cc. Left Ovary: 4.8 x 2.1 x 1.9 cm, 10.2 cc Ultrasound Findings: Uterus: Uterus is retroverted, demonstrates normal myometrial echotexture. No focal myometrial lesion. Endometrial stripe: Ill-defined hyperechoic content measuring 14 mm seen in the upper part of endometrial cavity near the fundus with focus of posterior acoustic shadowing possible calcification within. There are some areas of blood flow within this abnormality. Right Ovary: Right ovary is within normal limits. There is normal arterial and venous Doppler flow. Left Ovary: Left ovary is within normal limits. There is normal arterial and venous Doppler flow. Free Fluid: Mild free fluid in posterior cul-de-sac and pelvis. IMPRESSION: Findings suggestive of retained products of conception. Normal Doppler flow within the ovaries. I have personally reviewed the images of this examination and agree with the resident's findings and interpretation. Interpreted by: Mark Jiang MD Preliminary Report By: Gallito Hernandez Electronically signed By Mark Jiang MD Dictated Date: 02/02/2023 2:09:29 PM Prelim Date: 02/02/2023 2:33:37 PM Sign Date: 02/02/2023 2:33:37 PM [facility]ing [facility] Discharge instructions Patient Education 12/10/2022 11:05:50 Choosing to breastfeed is one of the best decisions you can make for yourself and your baby. A change in hormones during causes your breasts to make breast milk in your milk-producing glands. Hormones prevent breast milk from being released before your baby is born. They also prompt milk flow after . Once has begun, thoughts of your baby, as well as his or her suckingor crying, can stimulate the release of milk from your milk-producing glands. Benefits of Research shows that offers many health benefits for infants and mothers. It also offers a cost-free and convenient way to feed your baby. For your baby Your first milk (colostrum) helps your baby's digestive system to function better. Special cells in your milk (antibodies) help your baby to fight off infections. Breastfed babies are less likely to develop asthma, allergies, obesity, or type 2 diabetes. They are also at lower risk for sudden infant syndrome (SIDS). Nutrients in breast milk are better able to meet your baby s needs compared to formula. Breast milk improves your baby's brain development. For you helps to create a very special howard between you and your baby. is convenient. Breast milk costs nothing and is always available at the correct temperature. helps to burn calories. It helps you to lose the weight that you gained during . makes your uterus return faster to its size before . It also slows bleeding (lochia) after you give . helps to lower your risk of developing type 2 diabetes, osteoporosis, rheumatoid arthritis, cardiovascular disease, and breast, ovarian, uterine, and endometrial cancer later in life. basics Starting Find a comfortable place to sit or lie down, with your neck and back well-supported. Place a pillow or a rolled-up blanket under your baby to bring him or her to the level of your breast (if you are seated). Nursing pillows are specially designed to help support your arms and your baby while you breastfeed. Make sure that your baby's tummy (abdomen) is facing your abdomen. Gently massage your breast. With your fingertips, massage from the outer edges of your breast inward toward the nipple. This encourages milk flow. If your milk flows slowly, you may need to continue this action during the feeding. Support your breast with 4 fingers underneath and your thumb above your nipple (make the letter Cwith your hand). Make sure your fingers are well away from your nipple and your baby s mouth. Stroke your baby's lips gently with your finger or nipple. When your baby's mouth is open wide enough, quickly bring your baby to your breast, placing your entire nipple and as much of the areola as possible into your baby's mouth. The areola is the colored area around your nipple. ?More areola should be visible above your baby's upper lip than below the lower lip. ?Your baby's lips should be opened and extended outward (flanged) to ensure an adequate, comfortable latch. ?Your baby's tongue should be between his or her lower gum and your breast. Make sure that your baby's mouth is correctly positioned around your nipple (latched). Your baby's lips should create a seal on your breast and be turned out (everted). It is common for your baby to suck about 2 3 minutes in order to start the flow of breast milk. Latching Teaching your baby how to latch onto your breast properly is very important. An improper latch can cause nipple pain, decreased milk supply, and poor weight gain in your baby. Also, if your baby is not latched onto your nipple properly, he or she may swallow some air during feeding. This can make your baby fussy. Burping your baby when you switch breasts during the feeding can help to get rid of the air. However, teaching your baby to latch on properly is still the best way to prevent fussinessfrom swallowing air while . Signs that your baby has successfully latched onto your nipple Silent tugging or silent sucking, without causing you pain. 's lips should be extended outward (flanged). Swallowing heard between every 3 4 sucks once your milk has started to flow (after your let-down milk reflex occurs). Muscle movement above and in front of his or her ears while sucking. Signs that your baby has not successfully latched onto your nipple Sucking sounds or smacking sounds from your baby while . Nipple pain. If you think your baby has not latched on correctly, slip your finger into the corner of your baby s mouth to break the suction and place it between your baby's gums. Attempt to start again. Signs of successful Signs from your baby Your baby will gradually decrease the number of sucks or will completely stop sucking. Your baby will fall asleep. Your baby's body will relax. Your baby will retain a small amount of milk in his or her mouth. Your baby will let go of your breast by himself or herself. Signs from you Breasts that have increased in firmness, weight, and size 1 3 hours after feeding. Breasts that are softer immediately after . Increased milk volume, as well as a change in milk consistency and color by the fifth day of . Nipples that are not sore, cracked, or bleeding. Signs that your baby is getting enough milk Wetting at least 1 2 diapers during the first 24 hours after . Wetting at least 5 6 diapers every 24 hours for the first week after . The urine should be clear or pale yellow by the age of 5 days. Wetting 6 8 diapers every 24 hours as your baby continues to grow and develop. At least 3 stools in a 24-hour period by the age of 5 days. The stool should be soft and yellow. At least 3 stools in a 24-hour period by the age of 7 days. The stool should be seedy and yellow. No loss of weight greater than 10% of weight during the first 3 days of life. Average weight gain of 4 7 oz (113 198 g) per week after the age of 4 days. Consistent daily weight gain by the age of 5 days, without weight loss after the age of 2 weeks. After a feeding, your baby may spit up a small amount of milk. This is normal. frequency and duration Frequent feeding will help you make more milk and can prevent sore nipples and extremely full breasts (breast engorgement). Breastfeed when you feel the need to reduce the fullness of your breasts orwhen your baby shows signs of hunger. This is called on demand. Signs that your baby is hungry include: Increased alertness, activity, or restlessness. Movement of the head from side to side. Opening of the mouth when the corner of the mouth or cheek is stroked (rooting). Increased sucking sounds, smacking lips, cooing, sighing, or squeaking. Qxww-ok-mwxgc movements and sucking on fingers or hands. Fussing or crying. Avoid introducing a pacifier to your baby in the first 4-6 weeks after your baby is born. After this time, you may choose to use a pacifier. Research has shown that pacifier use during the first yearof a baby's life decreases the risk of sudden syndrome (SIDS). Allow your baby to feed on each breast as long as he or she wants. When your baby unlatches or falls asleep while feeding from the first breast, offer the second breast. Because newborns are often sleepy in the first few weeks of life, you may need to awaken your baby to get him or her to feed. times will vary from baby to baby. However, the following rules can serve as a guide to help you make sure that your baby is properly fed: Newborns (babies 4 weeks of age or younger) may breastfeed every 1 3 hours. Newborns should not go without for longer than 3 hours during the day or 5 hours during the night. You should breastfeed your baby a minimum of 8 times in a 24-hour period. Breast milk pumping Pumping and storing breast milk allows you to make sure that your baby is exclusively fed your breast milk, even at times when you are unable to breastfeed. This is especially important if you go back to work while you are still , or if you are not able to be present during feedings. Your business analysis consultant can help you find a method of pumping that works best for you and give you guidelines about how long it is safe to store breast milk. Caring for your breasts while you breastfeed Nipples can become dry, cracked, and sore while . The following recommendations can help keep your breasts moisturized and healthy: Avoid using soap on your nipples. Wear a supportive bra designed especially for nursing. Avoid wearing underwire- style bras or extremely tight bras (sports bras). Air-dry your nipples for 3 4 minutes after each feeding. Use only cotton bra pads to absorb leaked breast milk. Leaking of breast milk between feedings is normal. Use lanolin on your nipples after . Lanolin helps to maintain your skin's normal moisture barrier. Pure lanolin is not harmful (not toxic) to your baby. You may also hand express a few drops of breast milk and gently massage that milk into your nipples and allow the milk to air-dry. In the first few weeks after giving , some women experience breast engorgement. Engorgement can make your breasts feel heavy, warm, and tender to the touch. Engorgement peaks within 3 5 days after you give . The following recommendations can help to ease engorgement: Completely empty your breasts while or pumping. You may want to start by applying warm, moist heat (in the shower or with warm, water-soaked hand towels) just before feeding or pumping.This increases circulation and helps the milk flow. If your baby does not completely empty your breasts while , pump any extra milk after he or she is finished. Apply ice packs to your breasts immediately after or pumping, unless this is too uncomfortable for you. To do this: ?Put ice in a plastic bag. ?Place a towel between your skin and the bag. ?Leave the ice on for 20 minutes, 2 3 times a day. Make sure that your baby is latched on and positioned properly while . If engorgement persists after 48 hours of following these recommendations, contact your health careprovider or a business analysis consultant. Overall health care recommendations while Eat 3 healthy meals and 3 snacks every day. Well-nourished mothers who are need an additional 450 500 calories a day. You can meet this requirement by increasing the amount of a balanced diet that you eat. Drink enough water to keep your urine pale yellow or clear. Rest often, relax, and continue to take your vitamins to prevent fatigue, stress, and low vitamin and mineral levels in your body (nutrient deficiencies). Do not use any products that contain nicotine or tobacco, such as cigarettes and e-cigarettes. Yourbaby may be harmed by chemicals from cigarettes that pass into breast milk and exposure to secondhand smoke. If you need help quitting, ask your health care provider. Avoid alcohol. Do not use illegal drugs or marijuana. Talk with your health care provider before taking any medicines. These include uhms-img-kessixu andprescription medicines as well as vitamins and herbal supplements. Some medicines that may be harmful to your baby can pass through breast milk. It is possible to become while . If control is desired, ask your healthcare provider about options that will be safe while your baby. Where to find more information: [employer]: www.llli.org Contact a health care provider if: You feel like you want to stop or have become frustrated with . Your nipples are cracked or bleeding. Your breasts are red, tender, or warm. You have: ?Painful breasts or nipples. ?A swollen area on either breast. ?A fever or chills. ?Nausea or vomiting. ?Drainage other than breast milk from your nipples. Your breasts do not become full before feedings by the fifth day after you give . You feel sad and depressed. Your baby is: ?Too sleepy to eat well. ?Having trouble sleeping. ?More than 1 week old and wetting fewer than 6 diapers in a 24-hour period. ?Not gaining weight by 5 days of age. Your baby has fewer than 3 stools in a 24-hour period. Your baby's skin or the white parts of his or her eyes become yellow. Get help right away if: Your baby is overly tired (lethargic) and does not want to wake up and feed. Your baby develops an unexplained fever. Summary offers many health benefits for and mothers. Try to breastfeed your when he or she shows early signs of hunger. Gently tickle or stroke your baby's lips with your finger or nipple to allow the baby to open his or her mouth. Bring the baby to your breast. Make sure that much of the areola is in your baby's mouth. Offer one side and burp the baby before you offer the other side. Talk with your health care provider or business analysis consultant if you have questions or you face problems as you breastfeed. This information is not intended to replace advice given to you by your health care provider. Make sure you discuss any questions you have with your health care provider. Document Released: 05/30/2006 Document Revised: 08/24/2018 Document Reviewed: 07/01/2017 [employer] Patient Education 2020 [employer]. 12/10/2022 11:05:43 7b- Depression and Blues (03/2020)(CUSTOM) Andie Depression and Blues All mothers are at risk of developing depression or the blues. These mood changes can occur right after giving , or they may occur many months after giving . blues or depression can be mild or severe. Additionally, depression can goaway rather quickly, or it can be a long-term condition. CAUSES Raised hormone levels and the rapid drop in those levels are thought to be a main cause of depression and blues. A number of hormones change during and after . Estrogenand progesterone usually decrease right after delivery. The levels of thyroid hormone and various cortisol steroids also rapidly drop. Other factors that play a role in these mood changes include major life events and genetics. RISK FACTORS If you have any of the following risks for blues or depression, know what symptoms to watch out for during the period. Risk factors that may increase the likelihood of getting blues or depression include: Having a personal or family history of depression. Having depression while being . Having premenstrual mood issues or mood issues related to oral contraceptives. Having a lot of life stress. Having marital conflict. Lacking a social support network. Having health problems, such as diabetes. SIGNS AND SYMPTOMS Symptoms of blues include: Brief changes in mood, such as going from extreme happiness to sadness. Decreased concentration. Difficulty sleeping. Crying spells, tearfulness. Irritability. Anxiety. Symptoms of depression typically begin within the first month after giving . These symptoms include: Difficulty sleeping or excessive sleepiness. Marked weight loss. Agitation. Feelings of worthlessness. Lack of interest in activity or food. psychosis is a very serious condition and can be dangerous. Fortunately, it is rare. Displaying any of the following symptoms is cause for immediate medical attention. Symptoms of psychosis include: Hallucinations and delusions. Bizarre or disorganized behavior. Confusion or disorientation. DIAGNOSIS A diagnosis is made by an evaluation of your symptoms. There are no medical or lab tests that lead to a diagnosis, but there are various questionnaires that a health care provider may use to identifythose with blues, depression, or psychosis. Often, a screening tool called the [place] Depression Scale is used to diagnose depression in the period. TREATMENT blues usually goes away on its own in 1 2 weeks. Social support is often all that is needed. You will be encouraged to get adequate sleep and rest. Occasionally, you may be given medicinesto help you sleep. depression requires treatment because it can last several months or longer if it is not treated. Treatment may include individual or group therapy, medicine, or both to address any social,physiological, and psychological factors that may play a role in the depression. Regular exercise, a healthy diet, rest, and social support may also be strongly recommended. psychosis is more serious and needs treatment right away. Hospitalization is often needed. HOME CARE INSTRUCTIONS Get as much rest as you can. Exercise regularly. Some women find yoga and walking to be beneficial. Eat a balanced and nourishing diet. Do little things that you enjoy. Have a cup of tea, take a bubble bath, read your favorite magazine, or listen to your favorite music. Avoid alcohol. Ask for help with aerodynamics engineer, cooking, grocery shopping, or running errands as needed. Do nottry to do everything. Talk to people close to you about how you are feeling. Get support from your partner, family members, and friends. Try to stay positive in how you think. Think about the things you are grateful for. Do not spend a lot of time alone. Only take jmyn-jnj-rxstwry or prescription medicine as directed by your health care provider. Keep all your appointments. Let your health care provider know if you have any concerns. SEEK MEDICAL CARE IF: You are having a reaction to or problems with your medicine. SEEK IMMEDIATE MEDICAL CARE IF: You have suicidal feelings. You think you may harm yourself or someone else. MAKE SURE YOU: Understand these instructions. Will watch your condition. Will get help right away if you are not doing well or get worse. Resource: [facility] Patient Information 2015 [employer]. This information is not intended to replace advicegiven to you by your health care provider. Make sure you discuss any questions you have with your health care provider. 12/10/2022 11:05:42 Care After Vaginal Delivery Care After Vaginal Delivery This sheet gives you information about how to care for yourself from the time you deliver your babyto up to 6 12 weeks after delivery ( period). Your health care provider may also give youmore specific instructions. If you have problems or questions, contact your health care provider. Follow these instructions at home: Vaginal bleeding It is normal to have vaginal bleeding (lochia) after delivery. Wear a sanitary pad for vaginal bleeding and discharge. ?During the first week after delivery, the amount and appearance of lochia is often similar to a menstrual period. ?Over the next few weeks, it will gradually decrease to a dry, yellow-brown discharge. ?For most women, lochia stops completely by 4 6 weeks after delivery. Vaginal bleeding can vary from woman to woman. Change your sanitary pads frequently. Watch for any changes in your flow, such as: ?A sudden increase in volume. ?A change in color. ?Large blood clots. If you pass a blood clot from your vagina, save it and call your health care provider to discuss. Do not flush blood clots down the toilet before talking with your health care provider. Do not use tampons or douches until your health care provider says this is safe. If you are not , your period should return 6 8 weeks after delivery. If you are feeding your child breast milk only (exclusive ), your period may not return until you stop . Perineal care Keep the area between the vagina and the anus (perineum) clean and dry as told by your health care provider. Use medicated pads and pain-relieving sprays and creams as directed. If you had a cut in the perineum (episiotomy) or a tear in the vagina, check the area for signs of infection until you are healed. Check for: ?More redness, swelling, or pain. ?Fluid or blood coming from the cut or tear. ?Warmth. ?Pus or a bad smell. You may be given a squirt bottle to use instead of wiping to clean the perineum area after you go to the bathroom. As you start healing, you may use the squirt bottle before wiping yourself. Make sure to wipe gently. To relieve pain caused by an episiotomy, a tear in the vagina, or swollen veins in the anus (hemorrhoids), try taking a warm sitz bath 2 3 times a day. A sitz bath is a warm water bath that is taken while you are sitting down. The water should only come up to your hips and should cover your buttocks. Breast care Within the first few days after delivery, your breasts may feel heavy, full, and uncomfortable (breast engorgement). Milk may also leak from your breasts. Your health care provider can suggest ways to help relieve the discomfort. Breast engorgement should go away within a few days. If you are : ?Wear a bra that supports your breasts and fits you well. ?Keep your nipples clean and dry. Apply creams and ointments as told by your health care provider. ?You may need to use breast pads to absorb milk that leaks from your breasts. ?You may have uterine contractions every time you breastfeed for up to several weeks after delivery. Uterine contractions help your uterus return to its normal size. ?If you have any problems with , work with your health care provider or business analysis consultant. If you are not : ?Avoid touching your breasts a lot. Doing this can make your breasts produce more milk. ?Wear a good-fitting bra and use cold packs to help with swelling. ?Do not squeeze out (express) milk. This causes you to make more milk. Intimacy and sexuality Ask your health care provider when you can engage in sexual activity. This may depend on: ?Your risk of infection. ?How fast you are healing. ?Your comfort and desire to engage in sexual activity. You are able to get after delivery, even if you have not had your period. If desired, talkwith your health care provider about methods of control (contraception). Medicines Take vntt-boi-svstuqd and prescription medicines only as told by your health care provider. If you were prescribed an antibiotic medicine, take it as told by your health care provider. Do notstop taking the antibiotic even if you start to feel better. Activity Gradually return to your normal activities as told by your health care provider. Ask your health care provider what activities are safe for you. Rest as much as possible. Try to rest or take a nap while your baby is sleeping. Eating and drinking Drink enough fluid to keep your urine pale yellow. Eat high-fiber foods every day. These may help prevent or relieve constipation. High-fiber foods include: ?Whole grain cereals and breads. ?Brown rice. ?Beans. ?Fresh fruits and vegetables. Do not try to lose weight quickly by cutting back on calories. Take your vitamins until your checkup or until your health care provider tells you it is okay to stop. Lifestyle Do not use any products that contain nicotine or tobacco, such as cigarettes and e-cigarettes. If you need help quitting, ask your health care provider. Do not drink alcohol, especially if you are . General instructions Keep all follow-up visits for you and your baby as told by your health care provider. Most women visit their health care provider for a checkup within the first 3 6 weeks after delivery. Contact a health care provider if: You feel unable to cope with the changes that your child brings to your life, and these feelings donot go away. You feel unusually sad or worried. Your breasts become red, painful, or hard. You have a fever. You have trouble holding urine or keeping urine from leaking. You have little or no interest in activities you used to enjoy. You have not breastfed at all and you have not had a menstrual period for 12 weeks after delivery. You have stopped and you have not had a menstrual period for 12 weeks after you stopped . You have questions about caring for yourself or your baby. You pass a blood clot from your vagina. Get help right away if: You have chest pain. You have difficulty breathing. You have sudden, severe leg pain. You have severe pain or cramping in your lower abdomen. You bleed from your vagina so much that you fill more than one sanitary pad in one hour. Bleeding should not be heavier than your heaviest period. You develop a severe headache. You faint. You have blurred vision or spots in your vision. You have bad-smelling vaginal discharge. You have thoughts about hurting yourself or your baby. If you ever feel like you may hurt yourself or others, or have thoughts about taking your own life,get help right away. You can go to the nearest emergency department or call: Your local emergency services (911 in the [place] A suicide crisis helpline, such as the National Suicide Prevention Lifeline at . Thisis open 24 hours a day. Summary The period of time right after you deliver your up to 6 12 weeks after delivery is called the period. Gradually return to your normal activities as told by your health care provider. Keep all follow-up visits for you and your baby as told by your health care provider. This information is not intended to replace advice given to you by your health care provider. Make sure you discuss any questions you have with your health care provider. Document Released: 03/26/2008 Document Revised: 06/02/2018 Document Reviewed: 03/13/2018 [employer] Patient Education 2019 [employer]. [facility] 06-29-2023 Anesthesiology Consult note Patient: CYDNEY BROWN Age: 22 years Sex: Female : 2000 Associated Diagnoses: None Author: ANTOINETTE KAHN FISHING FLOATS ASSEMBLER-HEAT TREATMENT TECHNICIAN Preoperative Information Time of last food or liquid consumption: 12/08/2022 23:00:00 Anesthesia history Patient's history: negative. Family's history: negative. Review of Systems Ear/Nose/Mouth/Throat: Negative. Respiratory: asthma. Cardiovascular: Negative. Gastrointestinal: Reflux, obese. Genitourinary: Negative. Endocrine: Negative. Musculoskeletal: Negative. Integumentary: Negative. Neurologic: migraines. Health Status Allergies: Allergic Reactions (Selected) NKA, Allergies (1) ActiveReaction NKANone Documented Current medications: (Selected) Inpatient Medications Ordered Bicitra: 30 mL, Oral, AsDirected, PRN: Gastric Upset Brethine: 0.25 mg, 0.25 mL, Subcutaneous, AsDirected, PRN: Other (see order comments) Cytotec: 1,000 mcg, 5 tab(s), Rectal, Once, PRN: Other (see order comments) Hemabate: 250 mcg, 1 mL, Intramuscular, Once, PRN: Other (see order comments) LR 1,000 mL: 125 mL/hr, Intravenous LR 500 mL Bolus: 500 mL, IV Bolus, AsDirected, PRN: Other (see order comments) Methergine: 0.2 mg, 1 mL, Intramuscular, Once, PRN: Other (see order comments) Oxytocin for IV (mL/hr) 20 unit(s) + LR Premix Diluent 1,000 mL: 999 mL/hr, Intravenous Pitocin: 20 unit(s), 2 mL, Intramuscular, Once, PRN: Other (see order comments) Xylocaine HCl 1% injectable solution: 20 mg, 2 mL, Perineum, AsDirected, PRN: to perineal sutures Zofran: 4 mg, 2 mL, IV Push, q4h, PRN: Nausea multivitamin, : 1 tab(s), Oral, Daily tranexamic acid 1 g / 100 mL 0.7% NaCl PMX: 1 gram(s), 100 mL, 300 mL/hr, IV Piggyback, AsDirected,PRN: Other (see order comments) Prescriptions Prescribed DME MISCellaneous: See Instructions, Spacer chamber, Dx: J45.909, 1 EA, 0 Refill(s) Pepcid 20 mg oral tablet: 20 mg, 1 tab(s), Oral, BID, 60 tab(s), 0 Refill(s) Ventolin HFA MDI (90 mcg/inh) inhalation aerosol: 2 puff(s), Inhalation, q4h, PRN: as needed for wheezing, 6.7 gram(s), 0 Refill(s) Vitamin B6 50 mg oral tablet: 1 tab(s), Oral, BID, 28 tab(s), 0 Refill(s) ferrous sulfate 325 mg (65 mg elemental iron) oral delayed release tablet: 325 mg, 1 tab(s), Oral, qDay, 30 tab(s), 6 Refill(s) Documented Medications Documented Evening [place] Oil 1000 mg oral capsule: 1,000 mg, 1 cap(s), Oral, Daily, 0 Refill(s) Multivitamins with Vitamin B Complex, Vitamin C, Minerals and L- Methylfolate oral capsule...: 1 cap(s), Oral, Daily, 0 Refill(s) Tylenol: 325 mg, Oral, PRN: as needed for pain, 0 Refill(s), Medications (13) Active Scheduled: (1) multivitamin, Multivitamins with Folic Acid 1 mg Tab 1 tab(s), Oral, Daily Continuous: (2) Lactated Ringers 1,000 mL 1,000 mL, Intravenous, 125 mL/hr Oxytocin 20 units in Lactated Ringers 1000 mL 20 unit(s) + LR Premix Diluent 1,000 mL 1,000 mL, Intravenous, 999 mL/hr PRN: (10) carboprost 250 mcg/ml 1mL ampule 250 mcg 1 mL, Intramuscular, Once citric acid-sodium citrate 334 mg-500 mg/5 mL (30 mL) Karina UD 30 mL, Oral, AsDirected Lactated Ringers Injection 500 mL * Bolus * 500 mL, IV Bolus, AsDirected lidocaine 1% (MPF) 2 mL vial pf 20 mg 2 mL, Perineum, AsDirected methylergonovine 0.2 mg/mL (1 mL) ampule 0.2 mg 1 mL, Intramuscular, Once misoprostol 200 mcg tablet 1,000 mcg 5 tab(s), Rectal, Once ondansetron 2 mg/ 1 mL 2 mL INJ 4 mg 2 mL, IV Push, q4h oxytocin 10 units/mL 1 mL vial 20 unit(s) 2 mL, Intramuscular, Once terbutaline 1 mg/ml vial 0.25 mg 0.25 mL, Subcutaneous, AsDirected tranexamic acid PMX 1 gram(s) 100 mL, IV Piggyback, AsDirected Problem list: Medical Asthma / SNOMED CT 853653916 / Confirmed Endometriosis of pelvis / SNOMED CT 30808282 / Confirmed Excess weight gain in / SNOMED CT 4511930138 / Confirmed Gastric reflux / SNOMED CT 979435631 / Confirmed Migraine / SNOMED CT 43969383 / Confirmed / SNOMED CT 285433613 / Confirmed Scoliosis / SNOMED CT 460494963 / Confirmed Right ankle swelling / SNOMED CT 2662644635 / Confirmed Viral URI / SNOMED CT 961753830 / Confirmed, Active Problems (9) Asthma Endometriosis of pelvis Excess weight gain in Gastric reflux Migraine Right ankle swelling Scoliosis Viral URI Histories Past Medical History: Resolved Dysmenorrhea (206856510): Resolved. COVID-19 (5653689750): Resolved. Dyspareunia, female (111071581): Resolved. Right ankle sprain (76753180): Resolved. Family History: Breast cancer Grandparent Heart attack Grandparent Depression Grandparent Liver disease Paternal Grandfather Skin cancer Grandparent Diabetes Grandparent Paternal Aunt Mitral valve disorder Mother Procedure history: Nasal cautery (636385888). Creola tooth (24616727). Social History Social & Psychosocial Habits Alcohol 01/11/2020 Use: Never Substance Abuse 09/02/2020 Use: Never Tobacco 09/02/2020 Tobacco Use: Never (less than 100 in l Exposure to Tobacco Smoke Lives in non-smoking home Nutrition/Health 09/02/2020 Caffeine intake amount: 1-2 servings daily . Physical Examination Vital Signs 12/09/2022 0:09 EDT Heart Rate Monitored 111 bpm HI Respiratory Rate 18 br/min Systolic Blood Pressure Non-Invasive 108 mmHg Diastolic Blood Pressure Non-Invasive 53 mmHg LOW Reason For Taking VItal Signs Routine 12/09/2022 0:07 EDT Heart Rate Monitored 115 bpm HI Respiratory Rate 18 br/min Systolic Blood Pressure Non-Invasive 122 mmHg Diastolic Blood Pressure Non-Invasive 59 mmHg LOW Reason For Taking VItal Signs Routine 12/09/2022 0:05 EDT Heart Rate Monitored 112 bpm HI Respiratory Rate 18 br/min Systolic Blood Pressure Non-Invasive 140 mmHg Diastolic Blood Pressure Non-Invasive 73 mmHg Reason For Taking VItal Signs Routine 12/08/2022 22:30 EDT Temperature Temporal Artery 36.7 DegC Heart Rate Monitored 92 bpm Respiratory Rate 18 br/min Systolic Blood Pressure Non-Invasive 137 mmHg Diastolic Blood Pressure Non-Invasive 79 mmHg Reason For Taking VItal Signs Admission 12/08/2022 3:43 EDT Temperature Oral 36.5 DegC Heart Rate Monitored 89 bpm Respiratory Rate 18 br/min Systolic Blood Pressure Non-Invasive 116 mmHg Diastolic Blood Pressure Non-Invasive 69 mmHg Reason For Taking VItal Signs Admission Vital Signs(last 24 hrs) Last Charted Heart Rate MonitoredH 111bpm (DEC 09 00:09) Resp Rate 18 br/min (DEC 09 00:09) TXZ264 mmHg (DEC 09 00:09) DBPL 53mmHg (DEC 09 00:09) BMI29.37 (DEC 08 22:42) Measurements from flowsheet : Measurements 12/08/2022 22:42 EDT Height 167.6 cm Admission Weight 82.5 kg [place] Body Weight 59.26 kg BSA Admission 1.92 Body Mass Index 29.37 kg/m2 12/08/2022 22:28 EDT Height 167.6 cm Admission Weight 82.5 kg [place] Body Weight 59.26 kg BSA Admission 1.92 Body Mass Index 29.37 kg/m2 12/08/2022 3:43 EDT Height 167.5 cm Admission Weight 82.7 kg [place] Body Weight 59.17 kg BSA Admission 1.92 Body Mass Index 29.48 kg/m2 Pain assessment: Pain Assessment 12/08/2022 22:30 EDT Primary Pain Location Uterine Primary Pain Intensity 7 Primary Pain Quality Contraction Pain Scale Type 0-10 Pain scale 12/08/2022 4:26 EDT Primary Pain Intensity 0 Pain Scale Type 0-10 Pain scale . General: Alert and oriented. Airway: Normal temporomandibular joint mobility. Mallampati classification: II (soft palate, fauces, uvula visible). Head: Normocephalic. Dentition Evaluation: Own teeth. Neck: Supple. Respiratory: Lungs are clear to auscultation. Cardiovascular: Normal rate. Heart Sounds: Normal. Gastrointestinal: Soft. Musculoskeletal Normal range of motion. Integumentary: Intact. Neurologic: Alert, Oriented. Review / Management Results review: Labs (Last four charted values) WBC H 14.6(DEC 08) Hgb 12.4(DEC 08) Hct 37.3(DEC 08) Plt 384(DEC 08) , Lab results 12/09/2022 0:09 EDT Heart Rate Monitored 111 bpm HI Respiratory Rate 18 br/min Systolic Blood Pressure Non-Invasive 108 mmHg Diastolic Blood Pressure Non-Invasive 53 mmHg LOW Reason For Taking VItal Signs Routine Oxygen Saturation 98 % 12/09/2022 0:07 EDT Heart Rate Monitored 115 bpm HI Respiratory Rate 18 br/min Systolic Blood Pressure Non-Invasive 122 mmHg Diastolic Blood Pressure Non-Invasive 59 mmHg LOW Reason For Taking VItal Signs Routine Oxygen Saturation 98 % 12/09/2022 0:05 EDT Heart Rate Monitored 112 bpm HI Respiratory Rate 18 br/min Systolic Blood Pressure Non-Invasive 140 mmHg Diastolic Blood Pressure Non-Invasive 73 mmHg Reason For Taking VItal Signs Routine Oxygen Saturation 99 % Uterine Contraction Monitoring Method External toco Uterine Contraction Frequency 2.5-3 Uterine Contraction Duration 30-60 Uterine Contraction Intensity, Ext Palp Strong Uterine Resting Tone, External Soft Uterine Activity Regular contractions Baby A FHR Baseline: 140 bpm FHR Baseline Variability: Moderate variability FHR Accelerations: Present FHR Deceleration: Absent FHR Interpretation Category: Category One FHR Monitoring Method: External US transducer 12/08/2022 23:54 EDT Epidural Patient Position Side of bed, leaning forward with support Epidural Placed By ANTOINETTE KAHN FISHING FLOATS ASSEMBLER-HEAT TREATMENT TECHNICIAN Epidural Test Dose Time 12/09/2022 0:02 Epidural Bolus, Anesthesia 12/09/2022 0:05 Epidural Care Patient Response pt tolerated well Monitoring Annotations pt sitting for epidural 12/08/2022 23:43 EDT Patient Information Note anesthesia called for epidural request 12/08/2022 23:28 EDT Hand Left 12/08/2022 18 gauge Peripheral IV Activity: Insert new site Peripheral IV Dressing Condition: Clean, Dry, Intact Peripheral IV Dressing Activity: Applied, Transparent dressing Peripheral IV Line Status/Patency: Flushes easily, Continuous infusion Peripheral IV Site Condition: No complications Peripheral IV Equipment: Manual, Extension set, Stopcock, IV Pump, PRN Adaptor Peripheral IV Number of Attempts: 1 12/08/2022 23:22 EDT WBC 14.6 10^3/mcL HI RBC 4.32 10^6/mcL Hgb 12.4 G/dL Hct 37.3 % MCV 86.3 fL MCH 28.8 pg MCHC 33.4 G/dL RDW 14.3 % Platelet 384 10^3/mcL MPV 7.3 fL LOW Neutrophil % 85.2 % HI Lymphocyte % 9.1 % LOW Monocyte % 5.5 % Eosinophil % 0.1 % Basophil % 0.1 % Neutrophil, Absolute 12.4 10^3/mcL HI Lymphocyte, Absolute 1.3 10^3/mcL Monocyte, Absolute 0.8 10^3/mcL Eosinophil, Absolute 0.0 10^3/mcL Basophil, Absolute 0.0 10^3/mcL ABO/Rh Interp O POS Antibody Screen Gel Negative ABSC 12/08/2022 22:56 EDT [place] History and Physical History and Physical 12/08/2022 22:52 EDT Uterine Contraction Monitoring Method External toco Uterine Contraction Frequency 2-3 Uterine Contraction Duration 40-50 Uterine Contraction Intensity, Ext Palp Moderate Uterine Resting Tone, External Soft Uterine Activity Regular contractions Patient Position, OB Sitting Baby A FHR Baseline: 150 bpm FHR Baseline Variability: Minimal variability FHR Accelerations: Absent FHR Deceleration: Absent FHR Monitoring Method: External US transducer 12/08/2022 22:42 EDT Blood Type, External O positive Rubella, External Immune Group B Strep, External Negative Group B Strep Date Performed 11/09/2022 Hepatitis B, External Negative Hepatitis B Date Performed 05/19/2022 RPR, External Nonreactive Designated Person #1 We May Share [facility] Fabrizio Stephanie [phone] Designated Person #1 Relationship Spouse Privacy Restrictions Requested None Height 167.6 cm Admission Weight 82.5 kg [place] Body Weight 59.26 kg BSA Admission 1.92 Body Mass Index 29.37 kg/m2 Expected Outcome Live Patient Type Inpatient Thrombosis Risk Factors (1) or post- less than 1 month Thrombosis Risk Factor Add'l Assessment NA Thrombosis Risk Score 1 Status Yes Risk Factors, Antepartum Current Preg None Movement Present Vaginal bleeding No PPH Risk Low risk for hemorrhage PPH Low Risk Factors Angulo , Less than 4 previous deliveries, Unscarred uterus, Absence of hemorrhage history Infant Feeding Breast milk Anesthesia/Pain Medication During Labor Epidural/Spinal Baby For Adoption No Surrogate No Tubal Sterilization Planned No Discharge Physician Jenniffer Perea Written Plan Yes - See paper plan on chart [facility] Participant No Safe Sleep Environment for Baby Yes Safe Sleep Environment Outside Home Yes Maternal Transport No Thoughts of Harming Others - History No Thoughts of Suicide - History No Coping Effective Emotional Abuse History Denies Physical Abuse History Denies Sexual Abuse Denies Hospital Clergy to Visit Patient Verbalizes No Spiritual Needs Financial Concerns Re: Hospital/Disch No Living Situation Home independently Current Home Treatments None Professional Skilled Services None Special Services and Community Resources None Advanced Directives No - refuses information Infectious Disease Symptoms Patient states no symptoms Infectious Disease Recent Exposure No Alcohol and Drug Use No Employee of Institutional Living No Health Care Employee No History of Exposure to TB No History of Positive Chest X-Ray for TB No History of Positive TB Skin Test No Homeless No Known Immunosuppression No Recent Immigrant No Resident of Institutional Living No Bloody Sputum No Fatigue No Fever No Loss of Appetite No Night Sweats No Persistent Cough > 3 Weeks No Weight Loss No Safety Brochure Information Reviewed Unable to complete [facility] Video Viewed Patient refused Teaching Evaluation No further teaching needed Preferred Written Language Hungarian Preferred Spoken Language Hungarian Chief Complaint labor check Mode of Arrival Wheelchair Information Given by Spouse Patient's Current Physicians Dr. Lee/ Dr. Ulloa Emergency Contact Number fabrizio brown [phone] Reason For Visit OB Labor check Belongings At Bedside None Personal Home Medications Received No home medications were brought in Belongings Sent Home None Belongings to Security/Secured in Dept None Discharge To, Anticipated Home independently Other Anticipated Needs After Discharge No Anticoagulants Taken In Past 6 Wks. No Prev Test Positive/Diagnosis w/COVID-19 Yes Previous COVID-19 Positive Date 06/2021 Current Quarantine/Isolated any Illness No Any Contact with Sick Animals/Birds No Traveled Anywhere in Last 30 Days No No Able To Drink Order Detail Yes Able To Sign Consents Order Detail Yes Code Status Order Detail Full code IV Order Detail No Dialysis Schedule Order Detail N/A Has Diabetes Order Detail No Isolation Precautions Order Detail None Nurse Collect Order Detail 0 Oxygen Order Detail No Order Detail Yes Prior Valve Replacement Order Detail No Transport Mode Order Detail Ambulatory Anesthesia/Transfusions Prior anesthesia Admission Note-Nursing Patient History OB 12/08/2022 22:40 EDT Patient Information Note Marsha Simmons CNM in room Cervix Dilation 4 cm Cervix Effacement 80 Station -2 Vaginal Exam Performed By JAXSON SIMMONS 12/08/2022 22:32 EDT Baby A FHR Monitoring Method: monitoring explained, External US transducer Heart Tone: 140 12/08/2022 22:30 EDT Temperature Temporal Artery 36.7 DegC Heart Rate Monitored 92 bpm Respiratory Rate 18 br/min Systolic Blood Pressure Non-Invasive 137 mmHg Diastolic Blood Pressure Non-Invasive 79 mmHg Reason For Taking VItal Signs Admission Primary Pain Location Uterine Primary Pain Intensity 7 Primary Pain Quality Contraction Pain Scale Type 0-10 Pain scale Oxygen Saturation 98 % Baby A Membrane Status: Intact 12/08/2022 22:28 EDT Height 167.6 cm Admission Weight 82.5 kg [place] Body Weight 59.26 kg BSA Admission 1.92 Body Mass Index 29.37 kg/m2 Expected Outcome Live Status Yes Risk Factors, Antepartum Current Preg None Movement Present Vaginal bleeding No Maternal Transport No Thoughts of Harming Others - History No Thoughts of Suicide - History No Emotional Abuse History Denies Physical Abuse History Denies Sexual Abuse Denies Advanced Directives Unable to obtain Infectious Disease Symptoms Patient states no symptoms Infectious Disease Recent Exposure No Alcohol and Drug Use No Employee of Institutional Living No Health Care Employee No History of Exposure to TB No History of Positive Chest X-Ray for TB No History of Positive TB Skin Test No Homeless No Known Immunosuppression No Recent Immigrant No Resident of Institutional Living No Bloody Sputum No Fatigue No Fever No Loss of Appetite No Night Sweats No Persistent Cough > 3 Weeks No Weight Loss No Preferred Written Language Hungarian Preferred Spoken Language Hungarian Chief Complaint labor check Mode of Arrival Wheelchair Information Given by Spouse Patient's Current Physicians dr. lee Emergency Contact Number fabrizio camarenaman [phone] Reason For Visit OB Labor check Belongings At Bedside None Personal Home Medications Received No home medications were brought in Belongings Sent Home None Belongings to Security/Secured in Dept None Prev Test Positive/Diagnosis w/COVID-19 Yes Previous COVID-19 Positive Date 06/2021 Current Quarantine/Isolated any Illness No Any Contact with Sick Animals/Birds No Traveled Anywhere in Last 30 Days No No Able To Drink Order Detail Yes Able To Sign Consents Order Detail Yes Code Status Order Detail Full code IV Order Detail No Dialysis Schedule Order Detail N/A Has Diabetes Order Detail No Isolation Precautions Order Detail None Nurse Collect Order Detail 0 Oxygen Order Detail No Order Detail Yes Prior Valve Replacement Order Detail No Transport Mode Order Detail Ambulatory Admission Note-Nursing Patient History OB Triage 12/08/2022 12:21 EDT CSummary CSUMMARY 12/08/2022 4:49 EDT Monitoring Annotations Triage Evaluation 12/08/2022 4:42 EDT [place] [facility] In[facility] Summary [facility] Inpatient Discharge Instructions 12/08/2022 4:26 EDT Primary Pain Intensity 0 Pain Scale Type 0-10 Pain scale Uterine Contraction Monitoring Method External toco Uterine Activity Occasional contractions Baby A FHR Baseline: 140 bpm FHR Baseline Variability: Moderate variability FHR Accelerations: Present FHR Deceleration: Absent FHR Interpretation Category: Category One 12/08/2022 4:06 EDT Monitoring Annotations unable to associate 12/08/2022 3:58 EDT OB Screen /Para Para 0 (0) OB Screen Gestational Age > 37 weeks (0) OB Screen Cervical Dilatation > 3 cms (2) OB Screen Cervical Effacement 50-80% (1) OB Screen Station - 2 or above (0) OB Screen Cervical Position Midposition (0) OB Screen Presentation Vertex Presentation (0) OB Screen Contraction Pattern Irregular > 5 minutes apart (0) OB Screen Contraction Strength Not applicable OB Screen Membranes Intact (0) OB Screen FHR Variability Moderate (0) OB Screen Duration of Fastest Labor Not applicable OB Screen Travel Time 0-30 minutes (0) OB Screen Previous Uterine Scar None (0) OB Screen Pain With Contractions (1) OB Screen Pain Unrelated to Contractions None OB Screen Total Score 4 Presence of decelerations No Vaginal bleeding No Prolapsed Cord or Part No Persistent Maternal BP>140/90 No Persistent Headache No Visual Disturbances No Epigastric Pain No Proteinuria > 2+ No with dilation of 5cm or > No Non-reassuring FHR pattern No FHR Baseline < 110 or > 160 bpm No Decreased Movement/NR NST No No Care in Active Labor No Purulent Vaginal Discharge No Maternal Temp of > 38 degrees Celsius No Membranes Intact Yes Trauma OB Screen No OB Visit Outcome Discharged Method of Certification Telephone/Read Back Date/Time of Certification 12/08/2022 4:30 Certifying Provider LILLI LEE MD OB Certification Patient not in active labor, Patient has no emergency medical condition Chief Complaint Labor check Last Food Intake 12/08/2022 3:28 [place] OB Screen Note OB Screening [place] (Modified) OB Screening Form [place] OB Screening Form [place] (Modified) 12/08/2022 3:55 EDT Amnisure Negative QC AMNI Valid 12/08/2022 3:43 EDT Height 167.5 cm Admission Weight 82.7 kg [place] Body Weight 59.17 kg BSA Admission 1.92 Body Mass Index 29.48 kg/m2 Temperature Oral 36.5 DegC Heart Rate Monitored 89 bpm Respiratory Rate 18 br/min Systolic Blood Pressure Non-Invasive 116 mmHg Diastolic Blood Pressure Non-Invasive 69 mmHg Reason For Taking VItal Signs Admission Expected Outcome Live Oxygen Saturation 98 % Status Yes Cervix Dilation 3 cm Cervix Effacement 70 Station -2 Cervical Consistency Medium Cervical Position Mid Presenting Part Vertex Vaginal Exam Performed By Frandy Yanez RN Tian's Score 7 Maternal Transport No Thoughts of Harming Others - History No Thoughts of Suicide - History No Emotional Abuse History Denies Physical Abuse History Denies Sexual Abuse Denies Advanced Directives Unable to obtain Infectious Disease Symptoms Patient states no symptoms Infectious Disease Recent Exposure No Alcohol and Drug Use No Employee of Institutional Living No Health Care Employee No History of Exposure to TB No History of Positive Chest X-Ray for TB No History of Positive TB Skin Test No Homeless No Known Immunosuppression No Recent Immigrant No Resident of Institutional Living No Bloody Sputum No Fatigue No Fever No Loss of Appetite No Night Sweats No Persistent Cough > 3 Weeks No Weight Loss No Preferred Written Language Hungarian Preferred Spoken Language Hungarian Chief Complaint Labor check Mode of Arrival Ambulatory Information Given by Patient Patient's Current Physicians dr. lee Emergency Contact Number fabrizio brown [phone] Belongings At Bedside Cell phone, Purse Personal Home Medications Received No home medications were brought in Belongings Sent Home None Belongings to Security/Secured in Dept None Prev Test Positive/Diagnosis w/COVID-19 Yes Previous COVID-19 Positive Date 06/2021 Current Quarantine/Isolated any Illness No Any Contact with Sick Animals/Birds No Traveled Anywhere in Last 30 Days No No Able To Drink Order Detail Yes Able To Sign Consents Order Detail Yes Code Status Order Detail Full code IV Order Detail No Dialysis Schedule Order Detail N/A Has Diabetes Order Detail No Isolation Precautions Order Detail None Nurse Collect Order Detail 0 Oxygen Order Detail No Order Detail Yes Prior Valve Replacement Order Detail No Transport Mode Order Detail Ambulatory Admission Note-Nursing Patient History OB Triage . Assessment and Plan [place] [employer] (ASA) physical status classification: Class II. Anesthetic Preoperative Plan Anesthetic technique: Epidural. Postoperative pain management: Per surgeon. Informed consent: signed by patient. Digitally Signed by ANTOINETTE KAHN on 12/09/2022 12:42 AM [facility]06-28-2023 Hospital Discharge instructions Patient Education 12/08/2022 04:42:53 7 - Labor and Delivery Outpatient Instructions (CUSTOM) [place] OUT[facility]IENT HOME-GOING INSTRUCTIONS _X_ You are to follow up with your physician in ___ days/weeks. ACTIVITY ___ Bedrest _X__Activity as tolerated ___ No work/school for ___ days. ___Other PRESCRIPTION GIVEN ___Yes NAUSEA/VOMITING ___ Take small, frequent amounts of clear liquids. Avoid fruit juices and milk. ___ Increase fluid intake to a minimum of 8 ounces of fluid every hour while awake. ___ Soft diet. Rice, crackers, bananas, Jell-O, cooked carrots, applesauce. ___ [place] diet. Avoid caffeine, chocolate, alcohol, spiced/greasy foods. URINARY TRACT INFECTION ___ Drink 8-12 glasses of water every day. ___ Urinate frequently; do not limit fluids to reduce frequency of urination. ___ Call your physician if burning and frequency with urination returns after taking all your medication. ___ Call your physician if you have a temperature of 100.4 degrees Fahrenheit or higher. ___ Wipe from front to back. SIGNS OF PRE-ECLAMPSIA ___ Severe heartburn. ___ Persistent headache not relieved by Tylenol. ___ Increased in swelling of face, hands and feet. ___ Blurred vision, double vision, or spots in the eyes. ___ Persistent vomiting. ___ *Convulsions or seizures. LABOR ___ Restrict activity. ___ Drink 8-12 glasses of water every day. ___ Urinate frequently ___ Pelvic rest. No sexual intercourse/ Call your physician if you experience: _X__ Increase in vaginal discharge, leaking fluid, or vaginal bleeding. ___ More than 4, 5, or 6 contractions in one hour. __X_ Burning and frequency with urination. DECREASED MOVEMENT __X_ Lie down on your left side, drink some fluids and relax. Count the movements. You need to have 10 movements in 2 hours. __X If you do not feel the 10 movements, call your physician. OTHER _X__ After an exam you may experience some spotting or discharge. As long as it is not bright red and heavy like a period or continues to leak as if your water broke, it is to be expected. ___ LABOR Call your physician if you experience: _X__ Painful uterine contractions every _3__ minutes for __1_ hours. _X__A gush or continuous trickle of watery discharge. COME TO THE HOSPITAL AND CALL PHYSICIAN IF: _X__ Your abdomen feels continually firm. _X__ *Bleeding is bright red and enough to saturate a pad in one hour or less. *Call 911 or go to the nearest Emergency Room for assistance. Form [id number] D: 05/21 Document Released: 05/30/2006 Document Revised: 05/18/2012 Document Reviewed: 05/30/2006 ExitCare Patient Information 2012 [employer]. Follow Up Care 12/08/2022 03:37:01 With:LILLI LEE Address: [address] [facility] [address] [place] [address] [phone] Business (1) When: Unknown [facility] 06-27-2023 Hospital Discharge instructions Patient Education 12/07/2022 03:22:01 [place] [facility] Outpatient Instructions (AORN) [facility] OUTPATIENT HOME-GOING INSTRUCTIONS _X_ You are to follow up with your physician in ___ days/weeks. ACTIVITY ___ Bedrest ___Activity as tolerated ___ No work/school for ___ days. ___Other PRESCRIPTION GIVEN ___Yes NAUSEA/VOMITING ___ Take small, frequent amounts of clear liquids. Avoid fruit juices and milk. ___ Increase fluid intake to a minimum of 8 ounces of fluid every hour while awake. ___ Soft diet. Rice, crackers, bananas, Jell-O, cooked carrots, applesauce. ___ [place] diet. Avoid caffeine, chocolate, alcohol, spiced/greasy foods. URINARY TRACT INFECTION ___ Drink 8-12 glasses of water every day. ___ Urinate frequently; do not limit fluids to reduce frequency of urination. ___ Call your physician if burning and frequency with urination returns after taking all your medication. ___ Call your physician if you have a temperature of 100.4 degrees Fahrenheit or higher. ___ Wipe from front to back. SIGNS OF PRE-ECLAMPSIA ___ Severe heartburn. ___ Persistent headache not relieved by Tylenol. ___ Increased in swelling of face, hands and feet. ___ Blurred vision, double vision, or spots in the eyes. ___ Persistent vomiting. ___ *Convulsions or seizures. LABOR ___ Restrict activity. ___ Drink 8-12 glasses of water every day. ___ Urinate frequently ___ Pelvic rest. No sexual intercourse/ Call your physician if you experience: ___ Increase in vaginal discharge, leaking fluid, or vaginal bleeding. ___ More than 4, 5, or 6 contractions in one hour. ___ Burning and frequency with urination. DECREASED MOVEMENT ___ Lie down on your left side, drink some fluids and relax. Count the movements. You need tohave 10 movements in 2 hours. ___ If you do not feel the 10 movements, call your physician. OTHER ___ After an exam you may experience some spotting or discharge. As long as it is not bright red and heavy like a period or continues to leak as if your water broke, it is to be expected. ___ LABOR Call your physician if you experience: ___ Painful uterine contractions every ___ minutes for ___ hours. ___A gush or continuous trickle of watery discharge. COME TO THE HOSPITAL AND CALL PHYSICIAN IF: ___ Your abdomen feels continually firm. ___ *Bleeding is bright red and enough to saturate a pad in one hour or less. *Call 911 or go to the nearest Emergency Room for assistance. Form D: 05/21 [facility] 01-29-2023 Hospital Discharge instructions Patient Education 07/11/2022 19:47:05 Medicines for GERD Medicines for GERD Gastroesophageal reflux disease (GERD) can be treated with medicine. This may be done with a medicine you can buy over the counter. Or it may be done with a medicine that your healthcare provider hasto prescribe. In some cases, both types may be used. Your provider will tell you what is best for your symptoms. Antacids Antacids work to weaken the acid in your stomach and can give you quick relief. You can buy many ofthem with no prescription. Antacids can be high in sodium. This may be a problem if you have high blood pressure. Some antacids also have aluminum. This should be avoided if you have long-term (chronic) kidney disease. So check with your provider first. Take antacids only when you need to, as advised by your provider. Side effects: Constipation, diarrhea. If you take too much medicine, it can cause calcium to build up. H-2 blockers H-2 blockers cause the stomach to make less acid. They are often used both on demand as symptoms occur, and daily to keep symptoms away. Your provider may prescribe them if antacids don t work for you. You can buy some of them over the counter. These come in a lower dosage. Side effects: Confusion in older adults Proton-pump inhibitors These also cause the stomach to make less acid. They reduce stomach acid more than H-2 blockers. They may be used for a short time, or longer to treat certain conditions. You can buy some of them over the counter. Or your provider may prescribe them. They help control GERD symptoms. Side effects: Belly (abdominal) pain, diarrhea, upset stomach (nausea). Possible other side effectslinked to long-term use and high doses. Prokinetics These medicines affect the movement of the digestive tract. They may be recommended if your stomachis emptying too slowly. But in most cases they are not recommended for treating GERD. Side effects: Tiredness, depression, anxiety, problems with physical movement, belly cramps, constipation, diarrhea, a jittery feeling Medicines to avoid Don t take aspirin without your provider s approval. And don t take a nonsteroidal anti-inflammatory drug (NSAID), such as ibuprofen. These reduce the protective lining of your stomach. This can leadto more GERD symptoms. Check with your provider or pharmacist before taking a new medicine. [id number] [employer] [address] [place] [address]. All rights reserved. This information is not intended as a substitute for professional medical care. Always follow yourhealthcare professional's instructions. Follow Up Care 07/11/2022 18:49:49 With:LILLI LEE MD Address: [address] [facility] [address] [facility] [place] [address] [phone] When:2-4 days [facility] Address: [address] [facility] [place] [address]- [phone] When:2-4 days [facility] 01-29-2023 Note Discharge Instructions Thank you for allowing [facility] to assist you with your healthcare needs. The following is importantdischarge information regarding your hospital visit. Diagnosis from Today's Visit Abdominal discomfort Headache GERD (gastroesophageal reflux disease) Abdominal pain - 19 weeks What to Do Next Instructions from Your Care Team Please follow-up with your MERCURY WASHER. We are providing you with a prescription for Pepcid as well. This can help with any sort of acid reflux you may be experiencing. If you begin having worsening abdominal pain, vaginal bleeding then please return to the hospital. Discharge Return to Work, School, or Sports (Return to Work, School, or Sports) - Ordered -- 07/12/22, May return to: work, 07/11/22 19:49:00 EST Post Acute Orders No qualifying data available. You Need to Schedule the Following Appointments Follow Up with LILLI LEE MD When Within 2-4 days Where: [address] [facility] [address] [facility] [address]- [phone] Follow Up with JENNIFFER PEREA When Within 2-4 days Where: [address] [facility] [place] [address]- [phone] Allergies NKA Medications Please ask your primary doctor or pharmacist before taking any other medication not listed, including over the counter drugs, herbal medications, vitamins and or supplements as they may interact withyour home medications. What How Much When Why Instructions Last Dose New famotidine (Pepcid 20 mg oral tablet) 1 tab(s) by mouth Once a day Abdominal discomfort Headache Printed Prescription Unchanged acetaminophen (Tylenol) 325 Milligram by mouth As needed for as needed for pain Unchanged albuterol (Ventolin HFA MDI (90 mcg/ inh) inhalation aerosol) 2 puff(s) by inhalation Every 4 hours as needed for as needed for wheezing Unchanged Misc Medication (RA VITAMIN B-6 50 MG TABLET) take 1 tablet by mouth twice a day Unchanged multivitamin, ( Multivitamins with Vitamin B Complex, Vitamin C, Minerals and L-Methylfolate oral capsule) 1 cap by mouth Every day Please take this list to your next doctor s visit. Bring all medications you take, including over the counter medications, herbals and other supplements with you to your doctor s visit. Patients and families are reminded to discard old lists and to update any records with all medication providers or retail pharmacies. Education Materials Medicines for GERD Gastroesophageal reflux disease (GERD) can be treated with medicine. This may be done with a medicine you can buy over the counter. Or it may be done with a medicine that your healthcare provider hasto prescribe. In some cases, both types may be used. Your provider will tell you what is best for your symptoms. Antacids Antacids work to weaken the acid in your stomach and can give you quick relief. You can buy many ofthem with no prescription. Antacids can be high in sodium. This may be a problem if you have high blood pressure. Some antacids also have aluminum. This should be avoided if you have long-term (chronic) kidney disease. So check with your provider first. Take antacids only when you need to, as advised by your provider. Side effects: Constipation, diarrhea. If you take too much medicine, it can cause calcium to build up. H-2 blockers H-2 blockers cause the stomach to make less acid. They are often used both on demand as symptoms occur, and daily to keep symptoms away. Your provider may prescribe them if antacids don t work for you. You can buy some of them over the counter. These come in a lower dosage. Side effects: Confusion in older adults Proton-pump inhibitors These also cause the stomach to make less acid. They reduce stomach acid more than H-2 blockers. They may be used for a short time, or longer to treat certain conditions. You can buy some of them over the counter. Or your provider may prescribe them. They help control GERD symptoms. Side effects: Belly (abdominal) pain, diarrhea, upset stomach (nausea). Possible other side effectslinked to long-term use and high doses. Prokinetics These medicines affect the movement of the digestive tract. They may be recommended if your stomachis emptying too slowly. But in most cases they are not recommended for treating GERD. Side effects: Tiredness, depression, anxiety, problems with physical movement, belly cramps, constipation, diarrhea, a jittery feeling Medicines to avoid Don t take aspirin without your provider s approval. And don t take a nonsteroidal anti-inflammatory drug (NSAID), such as ibuprofen. These reduce the protective lining of your stomach. This can leadto more GERD symptoms. Check with your provider or pharmacist before taking a new medicine. [id number] [employer] [address] [place] [address], [place] [address]. All rights reserved. This information is not intended as a substitute for professional medical care. Always follow yourhealthcare professional's instructions. Additional Information VACCINATE! IT SAVES LIVES! Members of the community who have not yet received the COVID-19 vaccine and would like to receive it can visit one of [facility] vaccine clinics. There are many vaccine clinic locations within the [facility]. For locations and available times, please visit [email or web address]. It is important to note that some COVID mobile vaccine clinics are held outdoors and may be canceled in rainy orstormy conditions. To learn more about pediatric vaccinations (ages 5-11), we invite you to visit the [facility] webpage. [email or web address]/[email or web address] stions.htmlTo learn more about the COVID-19 vaccine, we invite you to visit the [facility] website for a list of frequently asked questions. [email or web address] [facility] Patient Portal Access Instructions: Stay connected with your healthcare team and access your personal medical information anytime with the [facility] Patient Portal. If you would like a full copy of your medical records please contact the [facility] Medical Records Department Tuesday through Tuesday between 8a.m. and 4:30p.m. Please follow the directions below to access the portal: 1.Access the email account you provided upon registration to the hospital.2.Look for an invitation email from [facility].3.Open the email and access the invitation link: Accept Invitation to [facility]4.Fill in the required velasquez to create your account. Sign into www.[employer] with your username and password that you created in the above steps to stay up to date. You can then view a summary of results, a summary of your visits, and the ability to download your summaries to your computer or send the information securely to a physician. Remember that your healthcare information is confidential, so carefully consider who you will allow to register on the [facility] Patient Portal for access to your information. You can also access the [facility] Patient Portal on the [employer] rashel. Simply click on Health Records under [employer] and then click on the [facility] logo. HOW TO SAFELY DISPOSE OF PRESCRIPTION MEDICATIONS Please use one of the following methods to safely dispose of your unused medications. 1.Use a drug disposal kit: the drug disposal pouch allows you to safely discard your old and unuseddrugs. Ask your nurse to give you one when you are discharged.2.Visit a local take-back location: Many local pharmacies and police departments have programs that collect old and unwanted prescriptiondrugs. Call your local pharmacy or go to http://Brandicted.LikeIt.com/0C1Tx2m to find one close to you.3.Make use of household items: Use cat litter or old coffee grounds to dispose medications if other options arenot available. Mix your drugs with these household products, seal them in an airtight container andthrow it into the garbage. Call [facility]: [phone] to be sure your drugs can be disposed of in this way. Some medicines may require a different approach.4.Never flush your medications down the toilet. IF YOU HAVE BEEN PRESCRIBED AN OPIOIDS FOR PAIN If you have been prescribed an opioid (such as hydrocodone, oxycodone or morphine), it is critical to understand the possible side effects and risks of opioid pain medications. Even when taken as directed, opioids can have several side effects including: Tolerance, meaning you might need to take more of a medication for the same pain relief. Nausea, vomiting and/or constipation. Sleepiness, dizziness, dry mouth, confusion, depression or itching. Physical dependence, meaning you have withdrawal symptoms when a medication is stopped ? this can develop within a few days. KNOW YOUR RESPONSIBILITIES It is important to know exactly how much and how often to take the opioid pain medications you are prescribed. Never take opioids in higher amounts or more often than prescribed. Do not combine opioids with alcohol or other drugs that cause drowsiness, such as benzodiazepines, also known as benzos,including diazepam and alprazolam, muscle relaxants or sleep aids. Never sell or share prescriptionopioids. This is illegal. Store opioids in a secure place and out of reach of others (including children, family, friends and visitors). The last page(s) of this document has been signed and retained as a CHART COPY Signatures Patient Education Materials Medicines for GERD Medication Leaflets My discharge plan and instructions have been reviewed and explained to me and I,STEPHANIE, CYDNEY M understand my current condition and have read and understand these discharge instructions. I have received a written copy of the plan/instructions. If I have questions, I am aware that I should contactmy doctor. 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/Infrastructure Manager Signature: Date/Time: Relationship to Patient: Witness Name/Signature: [facility] No data available for this section [facility] Evaluation + Plan note Future Appointments Appointment Date:12/17/2021 05:00:00 PM Scheduled Provider: Location:[facility] Appointment Type:US Pelvis Non-OB Complete Future Scheduled Tests Laboratory* Pathology Inbound Sales Advisor Request 12/02/21 Radiology* US Pelvis Non-OB Complete 12/17/21 [facility] Evaluation + Plan note Future Appointments Appointment Date:06/16/2022 02:00:00 PM Scheduled Provider:SAURABH PARSONS Location:[facility] Appointment Type: OV OB Routine Follow Up Diagnostic Tests Pending * N. gonorrhoeae PCR 05/19/22 * Urine Culture 05/19/22 * Varicella Zoster Antibody 05/19/22 * Chlamydia trachomatis PCR 05/19/22 * Panel (AO) 05/19/22 Future Scheduled Tests Laboratory* Panel (AO) 05/19/22 * HIV 1/2 Ab 05/19/22 * [facility] Send out (Blood Specimens) 05/19/22 [facility] Evaluation + Plan note Future Appointments Appointment Date:06/16/2022 02:00:00 PM Scheduled Provider:SAURABH PARSONS Location:[facility] Appointment Type: OV OB Routine Follow Up Future Scheduled Tests Laboratory* Panel (AO) 05/19/22 * HIV 1/2 Ab 05/19/22 * [facility] Lab Send out (Blood Specimens) 05/19/22 [facility] Evaluation + Plan note Future Appointments Appointment Date:07/14/2022 02:30:00 PM Scheduled Provider:LILLI LEE MD Location:[facility] Appointment Type: OV OB Routine Follow Up Appointment Date:07/14/2022 04:00:00 PM Scheduled Provider: Location:[facility] Appointment Type:US OB > 14 wks Future Scheduled Tests Laboratory* Panel (AO) 05/19/22 * HIV 1/2 Ab 05/19/22 * [facility] Lab Send out (Blood Specimens) 05/19/22 Radiology* US OB > 14 weeks 07/14/22 [facility] Evaluation + Plan note Future Appointments Appointment Date:08/16/2022 02:00:00 PM Scheduled Provider:MELISA ULLOA MD Location:[facility] Appointment Type:[facility] OB Routine Follow Up Future Scheduled Tests Laboratory* Panel (AO) 05/19/22 * HIV 1/2 Ab 05/19/22 * [facility] Lab Send out (Blood Specimens) 05/19/22 [facility] Evaluation + Plan note Future Appointments Appointment Date:09/27/2022 01:15:00 PM Scheduled Provider:MELISA ULLOA MD Location:[facility] Appointment Type: OV OB Routine Follow Up Diagnostic Tests Pending * Rapid Plasma Reagin Test 09/14/22 [facility] Evaluation + Plan note Future Appointments Appointment Date:11/16/2022 01:45:00 PM Scheduled Provider:LILLI LEE MD Location:[facility] Appointment Type: OV OB Routine Follow Up [facility] Evaluation + Plan note Future Appointments Appointment Date:12/15/2022 11:00:00 AM Scheduled Provider:LILLI LEE MD Location:[facility] Appointment Type: OV OB Routine Follow Up [facility] Evaluation noteNo assessment information available [facility] Work Phone: Evaluation note* Diagnosis Onset Date Resolution Status Migraine with aura acute Encounter for routine gynecological examination noneactive Care and examination of lactating mother noneactive Nipple pain noneactive [facility] Work Phone: Hospital Discharge instructions No data available for this section [facility] Progress note No data available for this section [facility] Prograqw note Author Lashay Tellez [facility] Note Date/Time December 03, 2024 9:56 am [facility] [address], [address] [place] [address] OFFICE VISIT Date of Service: 12/03/24 MR#: [id number] Acct: [id number] Name: CYDNEY BROWN Rep #: [id number] : 2000 Provider: Dr. Karen Fields DO Age/Sex: 24/F [place] [facility] [place]: Signed Intake Vital Signs 09/24/24 09:00 11/19/24 08:30 12/03/24 09:10 12/03/24 09:11 Height 5 ft 6 in 5 ft 6 in 5 ft 6 in 5 ft 6 in Weight: 215 lb BMI 34.7 BP 127/86 H Intake Visit Reasons: 32 WK OB Special Education Paraeducator Required: No Is patient in pain?: No Allergies No Known Allergies Allergy (Verified 12/03/24 09:10) Medications ?Medication ?Instructions ?Recorded ?Confirmed ?Type albuterol sulfate 90 mcg/actuation 2 puff inhalation Q 6H PRN 08/08/23 12/03/24 History aerosol inhaler shortness of breath or wheez ing docosahexaenoic acid 200 mg 1 mg PO QHS 06/26/2412/03 History capsule ( DHA) lactobacillus combination no.4 3 3,000 mmu cells PO QD AY 06/26/24 12/03/24 History billion cell capsule (Probiotic) magnesium 200 mg tablet 350 mg PO QDAY 06/26/2411/12 History nystatin 100,000 unit/gram topical 1 applic topical BI D #30 grams 10/22/24 12/03/24 Rx powder acetaminophen 500 mg capsule 1,000 mg PO Q6H PRN pain 10/29/24 12/03/24 History Last Menstrual Period: 04/22/24 Zika: Zika virus screening: Negative : No PFSH PFSH Surgical History S/P nasal surgery S/P wisdom tooth extraction S/P D&C (status post dilation and curettage) Family History Grandmother Breast cancer maternal Grandfather Cancer Skin Aunt Cancer Skin Grandmother Heart disease Myocardial infarction Grandfather Kidney failure Father Pre-diabetes Social History adopted: No household members: spouse and children number of children: 1 current occupation: [employer] current occupational exposures/hazards: No pets and animals: No history of recent travel: No sexually active: Yes Smoking Status: Never smoker alcohol intake: current alcohol intake frequency: holidays/special occasions only details: Not while substance use type: does not use well-balanced diet: daily or most days caffeine: Yes Type: coffee eating out: rarely or never during the past year weight has: remained stable what type of physical activity do you participate in: walking and weight training frequency: 5-6 times per week duration: 30-45 minutes/day feliciano/baptist: Scientologist seatbelt use: always do you feel safe at home: Yes additional social history: : 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 Date Name GA/Weeks Outcome Route Bth Weight Gen Labor Lgth Anesthesia Del Locatn Provider FOB 12/09/22 Ines 41 live - full term 7lbs 6oz Female 12 hours epidural Andie Roberts Delivery Date: 12/09/22 Last Updated by: Rachel Peña RN Retained placenta - bleed x8wk pp, D&C 8wk pp HPI 32 WK OB Details: CYDNEY BROWN is a 24 year old who presents for routine OB visit. OB Visit JANNET Calculator Estimated Delivery Date Method Current WG Current Estimate 01/27/25 LMP (Certain) 32w 1d Expected Delivery Route/Plan Labor Preferences- CB/BF classes: no labor support person: Fabrizio labor intervention preferences: [] pain management options preferred: epidural cut cord/dad catch: maybe : yes PP control planned: discussed discussed possible routes of delivery and associated risks: [] special requests: [] Specific Issue/Plans Covid status: [] Flu vaccine: [] Tdap vaccine: [] Rhogam: na LARC form signed: yes Problem list reviewed and updated with the most current plan of care details and appropriate orders placed. Relevant counseling for the gestational age provided. Continue routine care and follow up unless otherwise noted in visit notes/problem list details Initial Weight: 189 lb Date -?-?-?-?-?-?-?-?-?-?-?-?- EGA Weight BP Urine Prot -?-?-?-?-?-?-?-?-?-?-?-?- Glucose FHR FuHt Pres Dilation -?-?-?-?-?-?-?-?-?-?-?-?- Effaced St Visit Note 07/02/24 -?-?-?-?-?-?-?-?-?-?-?-?- 10w 1d 189 lb (+0 oz) 112/76 -?-?-?-?-?-?-?-?-?-?-?-?- 176 -?-?-?-?-?-?-?-?-?-?-?-?- JV- CRL measures 10 weeks 6 days but still not off by more than 7 days. JANNET is per LMP 01/27/25. Desires nipt. was delivered [facility] last . had retained placenta and D&C several weeks after delivery 07/30/24 -?-?-?-?-?-?-?-?-?-?-?-?- 14w 1d 192 lb 4 oz (+3 lb 4 oz) 124/77 Negative -?-?-?-?-?-?-?-?-?-?-?-?- Negative 168 -?-?-?-?-?-?-?-?-?-?-?-?- KW- no vb/crampi ng. feeling some flutters. anatomy US ordered. 08/27/24 -?-?-?-?-?-?-?-?-?-?-?-?- 18w 1d 201 lb (+12 lb) 115/77 Negative -?-?-?-?-?-?-?-?-?-?-?-?- Negative 176 -?-?-?-?-?-?-?-?-?-?-?-?- JV- pt complains of round ligament pain and pain during sex. was told may have endometriosis. no lof, vaginal bleeding, cramping. 09/24/24 -?-?-?-?-?--?-?-?-?-?-?-?- 22w 1d 202 lb 6 oz (+13 lb 6 oz) 100/63 Negative -?-?-?-?-?-?-?-?-?-?-?-?- Negative 150 -?-?-?-?-?-?-?-?-?-?-?-?- SM- no vb lof go od fm some ijeoma seaman. 10/22/24 -?-?-?-?-?-?-?-?-?-?-?-?- 26w 1d 209 lb 2 oz (+20 lb 2 oz) 98/66 Negative -?-?-?-?-?-?-?-?-?-?-?-?- Negative 143 26 -?-?-?-?-?-?-?-?-?-?-?-?- MH-No VB. Ezra F M. Rash comes and goes under breasts, nystatin sent. Larc. 28 wk labs pending 11/06/24 -?-?-?-?-?-?-?-?-?-?-?-?- 28w 2d 214 lb 2 oz (+25 lb 2 oz) 103/51 Negative -?-?-?-?-?-?-?-?-?-?-?-?- Negative 145 29 -?-?-?-?-?-?-?-?-?-?-?-?- KW- no vb/lof. B H ctx becoming more regular- every 3-4 days. increased stress with husbands health concerns and notices a correlation. good fm. Tdap today 12/03/24 -?-?-?-?-?-?-?-?-?-?-?-?- 32w 1d 215 lb (+26 lb) 127/86 Negative -?-?-?-?-?-?-?-?-?-?-?-?- Negative 164 32 Cephalic -?-?-?-?-?-?-?-?-?-?-?-?- JV- lots of ques tions about h/o retained placenta. states would appreciate a physician at delivery . ACOG First Trimester First Trimester: Discussed Second Trimester Second Trimester: Signs and Symptoms of Labor; Discussed Tobacco Cessation, Discussed Depression/Anxiety and Discussed Intimate Partner Violence Third Trimester Third Trimester: Pain Management Plans, Labor support person(s), Immediate Larc, Signs and Symptoms of Preeclampsia, Infant Feeding No and Family Medical Leave or Disability Forms; Discussed Circumcision preference Results POC Urinalysis 2 Dip (Clinic) Office Urine Glucose Negative Last Edit by Cydney Wright on 12/03/24 09: 19 Office Urine Protein Negative Last Edit by Cydney Wright on 12/03/24 09: 19 Coding Level of Care Code OB Routine Diagnoses History of retained placenta Z87.59 Obesity affecting in second trimester, unspecified obesity type O99.212 Obesity type affecting : unspecified obesity Trimester: second trimester Supervision of high risk in third trimester O09.93 Trimester: third trimester 32 weeks gestation of Z3A.32 Weeks of gestation: 32 weeks Family history of spina bifida Z82.79 History of eating disorder Z86.59 Asthma, unspecified asthma severity, unspecified whether complicated, unspecified whether persistent J45.909 Asthma complication type: unspecified Asthma persistence: unspecified Asthma severity: unspecified severity Migraine with aura and without status migrainosus, not intractable G43.109 Intractability: not intractable Status migrainosus presence: without status migrainosus Assessment and Plan Assessment and Plan (1) History of retained placenta: Status: Acute Comment: very traumatic-found at 8w pp, calcified, took 45min to remove at surgery. (2) Obesity affecting : Status: Acute Qualifiers: Obesity type affecting : unspecified obesity Trimester: second trimester Qualified Code(s): O99.212 - Obesity complicating , second trimester Comment: BMI 30.2, HgBA1C w/NOB (3) Supervision of high-risk : Status: Acute Qualifiers: Trimester: third trimester Qualified Code(s): O09.93 - Supervision of high risk , unspecified, third trimester Comment: PRR, , JANNET 01/27/25,girl Brionna PC: Ines, : Fabrizio (4) : Status: Acute Qualifiers: Weeks of gestation: 32 weeks Qualified Code(s): Z3A.32 - 32 weeks gestation of Comment: NIPT low risk, carrier negative in first . ntd screen declined. (5) Family history of spina bifida: Status: Acute Comment: Pt's sister (also has scoliosis), recommended 4 mg daily folic acid (6) History of eating disorder: Status: Acute Comment: Doing well with eating during , please be mindful of weight checks (7) Asthma: Status: Acute Qualifiers: Asthma complication type: unspecified Asthma persistence: unspecified Asthma severity: unspecified severity Qualified Code(s): J45.909 - Unspecified asthma, uncomplicated Comment: Albuterol PRN (8) Migraine with aura: Status: Acute Qualifiers: Intractability: not intractable Status migrainosus presence: without status migrainosus Qualified Code(s): G43.109 - Migraine with aura, not intractable, without status migrainosus Comment: avoid estrogen Orders: Orders POC Urinalysis 2 Dip (Clinic) Today 12/03/24 0956 <Electronically signed by Lashay Ibanez DO> Date _ Lashay Fields Cosigner Signature: Date (if applicable) CC: ~ [facility] Work Phone: Progress note Author Sophia Ellison [facility] Note Date/Time December 13, 2024 3:01p [facility] Medical Records Department [address] [place] [address] OB Triage Progress Note 12/13/24 1500 MR#: [id number] Acct: [id number] Name: CYDNEY BROWN Rep #:[id number] : 2000 24 From: Sophia marte MD PCP: NOEMÍ Alvarez Status:REG C LI Y DOS: Location: [place] [address] Progress Notes Date of Service: 12/13/24 Progress Note: Patient presents for triage evaluation secondary to dec movement FHT: 140 Moderate variability reactive no decelerations category I tracing [place]: no regular Contractions Assessment and plan: 33 weeks decreased movement Reactive NST, reassuring maternal and status patient discharged to home to follow-up as scheduled. See problem list details for additional plan information. Charges/Coding Procedures Urinary/Genital 52xxx-59xxx: 82046-84 non-stress test Interp 12/13/24 1501 <Electronically signed by Sophia grossman MD> Date _ Sophia Hernandezignromel Signature (if applicable): Date CC: CONCESSION ATTENDANTWoodrow Perea; Dr. Sophia Ellison MD ~ Signed [facility] Work Phone: Progress note Author Gonzalez Dunne [facility] Note Date/Time December 31, 2024 10:1 0am [facility] [address] [place] [address], [address] [place] [address] OFFICE VISIT Date of Service: 12/31/24 MR#: [id number] Acct: [id number] Name: CYDNEY BROWN Rep #: [id number] : 2000 Provider: HARJIT Dunne Age/Sex: 24/F [place] [facility] [place]: Signed Intake Vital Signs 10/22/24 12:58 12/25/24 13:53 12/31/24 09:41 Height 5 ft 6 in 5 ft 6 in 5 ft 6 in Weight: 213 lb 2 oz BMI 34.4 BP 99/68 Intake Visit Reasons: 36 wk ob Chief Complaint: 36wk OB Special Education Paraeducator Required: No Is patient in pain?: No Allergies No Known Allergies Allergy (Verified 12/31/24 09:39) Medications ?Medication ?Instructions ?Recorded ?Confirmed ?Type albuterol sulfate 90 mcg/actuation 2 puff inhalation Q 6H PRN 08/08/23 12/31/24 History aerosol inhaler shortness of breath or wheez ing docosahexaenoic acid 200 mg 1 mg PO QHS 06/26/2412/31 History capsule ( DHA) lactobacillus combination no.4 3 3,000 mmu cells PO QD AY 06/26/24 12/31/24 History billion cell capsule (Probiotic) magnesium 200 mg tablet 350 mg PO QDAY 06/26/2412/12 History acetaminophen 500 mg capsule 1,000 mg PO Q6H PRN pain 10/29/24 12/31/24 History nystatin 100,000 unit/gram topical 1 applic topical BI D #30 grams 12/17/24 12/31/24 Rx powder melatonin 3 mg capsule 2 mg PO PRN 12/25/24 5 History Last Menstrual Period: 04/22/24 : No PFSH PFSH Surgical History S/P nasal surgery S/P wisdom tooth extraction S/P D&C (status post dilation and curettage) Family History Grandmother Breast cancer maternal Grandfather Cancer Skin Aunt Cancer Skin Grandmother Heart disease Myocardial infarction Grandfather Kidney failure Father Pre-diabetes Social History adopted: No household members: spouse and children number of children: 1 current occupation: [employer] current occupational exposures/hazards: No pets and animals: No history of recent travel: No sexually active: Yes Smoking Status: Never smoker alcohol intake: current alcohol intake frequency: holidays/special occasions only details: Not while substance use type: does not use well-balanced diet: daily or most days caffeine: Yes Type: coffee eating out: rarely or never during the past year weight has: remained stable what type of physical activity do you participate in: walking and weight training frequency: 5-6 times per week duration: 30-45 minutes/day feliciano/baptist: Scientologist seatbelt use: always do you feel safe at home: Yes additional social history: : 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 Date Name GA/Weeks Outcome Route Bth Weight Infant Gen Labor Lgth Anesthesia Del Locatn Provider FOB 12/09/22 Ines 41 live - full term 7lbs 6oz Female [address] [facility] Melisa Roberts Delivery Date: 12/09/22 Last Updated by: Rachel Peña RN Retained placenta - bleed x8wk pp, D&C 8wk pp HPI 36 wk ob Details: CYDNEY BROWN is a 24 year old who presents for routine OB visit. OB Visit JANNET Calculator Estimated Delivery Date Method Current WG Current Estimate 01/27/25 LMP (Certain) 36w 1d Expected Delivery Route/Plan Labor Preferences- CB/BF classes: no labor support person: Fabrizio labor intervention preferences: [] pain management options preferred: epidural cut cord/dad catch: maybe : yes PP control planned: discussed discussed possible routes of delivery and associated risks: [] special requests: [] Specific Issue/Plans Covid status: [] Flu vaccine: [] Tdap vaccine: given Rhogam: na LARC form signed: yes Problem list reviewed and updated with the most current plan of care details and appropriate orders placed. Relevant counseling for the gestational age provided. Continue routine care and follow up unless otherwise noted in visit notes/problem list details Initial Weight: 189 lb Date -?-?-?-?-?-?-?-?-?-?-?-?- EGA Weight BP Urine Prot -?-?-?-?-?-?-?-?-?-?-?-?- Glucose FHR FuHt Pres Dilation -?-?-?-?-?-?-?-?-?-?-?-?- Effaced St Visit Note 07/02/24 -?-?-?-?-?-?-?-?-?-?-?-?- 10w 1d 189 lb (+0 oz) 112/76 -?-?-?-?-?-?-?-?-?-?-?-?- 176 -?-?-?-?-?-?-?-?-?-?-?-?- JV- CRL measures 10 weeks 6 days but still not off by more than 7 days. JANNET is per LMP 01/27/25. Desires nipt. was delivered [facility] last . had retained placenta and D&C several weeks after delivery 07/30/24 -?-?-?-?-?-?-?-?-?-?-?-?- 14w 1d 192 lb 4 oz (+3 lb 4 oz) 124/77 Negative -?-?-?-?-?-?-?-?-?-?-?-?- Negative 168 -?-?-?-?-?-?-?-?-?-?-?-?- KW- no vb/crampi ng. feeling some flutters. anatomy US ordered. 08/27/24 -?-?-?-?-?-?-?-?-?-?-?-?- 18w 1d 201 lb (+12 lb) 115/77 Negative -?-?-?-?-?-?-?-?-?-?-?-?- Negative 176 -?-?-?-?-?-?-?-?--?-?-?-?- JV- pt complains of round ligament pain and pain during sex. was told may have endometriosis. no lof, vaginal bleeding, cramping. 09/24/24 -?-?-?-?-?-?-?-?-?-?-?-?- 22w 1d 202 lb 6 oz (+13 lb 6 oz) 100/63 Negative -?-?-?-?-?-?-?-?-?-?-?-?- Negative 150 -?-?-?-?-?-?-?-?-?-?-?-?- SM- no vb lof go od fm some ijeoma seaman. 10/22/24 -?-?-?-?-?-?-?-?-?-?-?-?- 26w 1d 209 lb 2 oz (+20 lb 2 oz) 98/66 Negative -?-?--?-?-?-?-?-?-?-?-?-?- Negative 143 26 -?-?-?-?-?-?-?-?-?-?-?-?- MH-No VB. Ezra F M. Rash comes and goes under breasts, nystatin sent. Larc. 28 wk labs pending 11/06/24 -?-?-?-?-?-?-?-?-?-?-?-?- 28w 2d 214 lb 2 oz (+25 lb 2 oz) 103/51 Negative -?-?-?-?-?-?-?-?-?-?-?-?- Negative 145 29 -?-?-?-?-?-?-?-?-?-?-?-?- KW- no vb/lof. B H ctx becoming more regular- every 3-4 days. increased stress with husbands health concerns and notices a correlation. good fm. Tdap today 12/03/24 -?-?-?-?-?-?-?-?-?-?-?-?- 32w 1d 215 lb (+26 lb) 127/86 Negative -?-?-?-?-?-?-?-?-?-?-?-?- Negative 164 32 Cephalic -?-?-?-?-?-?-?-?-?-?-?-?- JV- lots of ques tions about h/o retained placenta. states would appreciate a physician at delivery . 12/17/24 -?-?-?-?-?-?-?-?-?-?-?-?- 34w 1d 214 lb 4 oz (+25 lb 4 oz) 104/80 Negative -?-?-?-?-?-?-?-?-?-?-?-?- Negative 154 34 Cephalic -?-?-?-?-?-?-?-?-?-?-?-?- MH-NO VB. Good F M. Occa BH ctx. 12/31/24 -?-?-?-?-?-?-?-?-?-?-?-?- 36w 1d 213 lb 2 oz (+24 lb 2 oz) 99/68 Negative -?-?-?-?-?-?-?-?-?-?-?-?- Negative 145 36 Cephalic 2 .5 -?-?-?-?-?-?-?-?-?-?-?-?- 30 -3 KW- no vb/ lof/ctx. good fm. GBS today. increased heart burn and recommended pepcid. chiropractor for hip pain ACOG First Trimester First Trimester: Discussed Second Trimester Second Trimester: Signs and Symptoms of Labor; Discussed Tobacco Cessation, Discussed Depression/Anxiety and Discussed Intimate Partner Violence Third Trimester Third Trimester: Pain Management Plans, Labor support person(s), Immediate Larc, Signs and Symptoms of Preeclampsia, Feeding No and Family Medical Leave or Disability Forms; Discussed Circumcision preference ROS Const Reports system reviewed and no additional complaints, except as documented Eyes Reports system reviewed and no additional complaints, except as documented ENT Reports system reviewed and no additional complaints, except as documented Card Reports system reviewed and no additional complaints, except as documented Resp Reports system reviewed and no additional complaints, except as documented GI Reports system reviewed and no additional complaints, except as documented, Denies nausea and Denies vomiting Reports system reviewed and no additional complaints, except as documented Musc Reports system reviewed and no additional complaints, except as documented Skin/Breast Reports system reviewed and no additional complaints, except as documented Neuro Yes system reviewed and no additional complaints, except as documented Psych Reports system reviewed and no additional complaints, except as documented Endo Reports system reviewed and no additional complaints, except as documented Charlie/Lymph Reports system reviewed and no additional complaints, except as documented Aller/Immun Reports system reviewed and no additional complaints, except as documented Exam Const General: cooperative, healthy appearing and no acute distress Orientation: alert, awake and oriented x3 Neck Neck: normal visual inspection and full ROM Resp Effort & Inspection: normal respiratory effort, able to speak in complete sentences and symmetric chest movement GI Inspection: normal to inspection Palpation: soft and other Other: gravid Skin General: no rashes or lesions noted Neuro General: patient alert, patient awake and patient oriented x3 Cognition: normal cognition Speech: speech normal Gait: normal gait Motor: muscle tone normal throughout Extrem General: normal to inspection and full ROM Psych Appearance: grossly normal Mental Status: mental status grossly normal Mood: congruent mood Affect: normal affect Speech and Movement: speech and movement normal Attitude: cooperative Thought Process: normal Thought Content: normal Judgment: judgment good Results POC Urinalysis 2 Dip (Clinic) Office Urine Glucose Negative Last Edit by Jennifer Alan on 12/31/24 09:53 Office Urine Protein Negative Last Edit by Jennifer Alan on 12/31/24 09:53 Coding Level of Care Code OB Routine Diagnoses History of retained placenta Z87.59 Obesity affecting in second trimester, unspecified obesity type O99.212 Obesity type affecting : unspecified obesity Trimester: second trimester Supervision of high risk in third trimester O09.93 Trimester: third trimester 36 weeks gestation of Z3A.36 Weeks of gestation: 36 weeks History of eating disorder Z86.59 Family history of spina bifida Z82.79 Asthma, unspecified asthma severity, unspecified whether complicated, unspecified whether persistent J45.909 Asthma complication type: unspecified Asthma persistence: unspecified Asthma severity: unspecified severity Migraine with aura and without status migrainosus, not intractable G43.109 Intractability: not intractable Status migrainosus presence: without status migrainosus Assessment and Plan Assessment and Plan (1) History of retained placenta: Status: Acute Comment: very traumatic-found at 8w pp, calcified, took 45min to remove at surgery. (2) Obesity affecting : Status: Acute Qualifiers: Obesity type affecting : unspecified obesity Trimester: second trimester Qualified Code(s): O99.212 - Obesity complicating , second trimester Comment: BMI 30.2, HgBA1C w/NOB (3) Supervision of high-risk : Status: Acute Qualifiers: Trimester: third trimester Qualified Code(s): O09.93 - Supervision of high risk , unspecified, third trimester Comment: PRR, , JANNET [birth year],girl Brionna PC: Ines, : Fabrizio (4) : Status: Acute Qualifiers: Weeks of gestation: 36 weeks Qualified Code(s): Z3A.36 - 36 weeks gestation of Comment: NIPT low risk, carrier negative in first . ntd screen declined. (5) History of eating disorder: Status: Acute Comment: Doing well with eating during , please be mindful of weight checks (6) Family history of spina bifida: Status: Acute Comment: Pt's sister (also has scoliosis), recommended 4 mg daily folic acid (7) Asthma: Status: Acute Qualifiers: Asthma complication type: unspecified Asthma persistence: unspecified Asthma severity: unspecified severity Qualified Code(s): J45.909 - Unspecified asthma, uncomplicated Comment: Albuterol PRN (8) Migraine with aura: Status: Acute Qualifiers: Intractability: not intractable Status migrainosus presence: without status migrainosus Qualified Code(s): G43.109 - Migraine with aura, not intractable, without status migrainosus Comment: avoid estrogen Orders: Orders POC Urinalysis 2 Dip (Clinic) Today Culture, Group B Streptococcus Today O09.93 - Supervision of high risk , unspecified, third trimester, Z3A.36 - 36 weeks gestation of Plan Details Additional Comments: ACOG trimester education reviewed and updated. see problem list details for updated plan management information and see below for orders placed at this visit. GA appropriate handout given. 12/31/24 1010 <Electronically signed by Gonzalez gomez CNM> Date _ Gonzalez Dunne CNM Cosigner Signature: Date (if applicable) CC: ~ [facility] Work Phone: Reason for referral (narrative)No reason for referral information available[facility] Work Phone: Discharge Instructions * Attachments The following attachments cannot be sent through Care Everywhere. * Back: Preventing Injuries (Hungarian) documented in this encounter Assessments Diagnosis Strain of lumbar region, initial encounter- Primary Summary Purpose Family History Relationship Condition Age at Onset Recorded Date/T kaye grandmother Malignant neoplasm of breast Unknown grandfather Malignant neoplasm Unknown aunt Malignant neoplasm Unknown Relationship Condition Age at Onset Recorded Date/T kaye grandmother Malignant neoplasm of breast Unknown grandfather Malignant neoplasm Unknown aunt Malignant neoplasm Unknown grandmother Cardiac disease Unknown Myocardial infarction Unknown grandfather Renal failure Unknown father Prediabetes Unknown Advance Directives Advance Directive Response Recorded Date/ Time Living Will Yes July 21 7:48pm Do you have a Healthcare Power of Manager Medical Device? Yes July 21, 2024 7:48pm Name of Medical Power of Manager Medical Device FABRIZIO STEPHANIE July 21, 2024 7:48pm Chief Complaint and Reason for Visit Chief Complaint bleach in eye Chief Complaint Annual (IRONMOLDER) nipple pain NEED ORDER Reason for Visit Migraine with aura Encounter for routine gynecological examination Care and examination of lactating mother Nipple pain Chief Complaint Admit Date Amb Documentation June 26, 2024 8 :24am NEW OB LMP 04/22July 02, 2024 9 :54am palpitations July 21, 2024 6 :34pm 14wk OB July 30, 2024 1:08pm 18 wk ob August 27, 2024 2:2 0pm 22wk ob September 24, 2024 8:5 2am 1 HOUR GLUCOSE October 22, 2024 12:24 pm 26 wk ob/GLUCOSE October 22, 2024 12:37 pm Reason for Visit Admit Date Asthma July 02, 2024 9 :54am Family history of spina bifida June 142024 9:54am History of eating disorder July 02, 2024 9:54am Migraine with aura July 02, 2024 9 :54am Obesity affecting June 9:54am July 02, 2024 9 :54am Supervision of high-risk Janua ry 2024 9:54am Asthma July 30, 2024 1:08pm Family history of spina bifida July 30, 2024 1:08pm History of eating disorder July 1:08pm Migraine with aura July 30, 2024 1:08pm Obesity affecting July 1:08pm July 30, 2024 1:08pm Supervision of high-risk Febru ingrid 2024 1:08pm Asthma August 27, 2024 2:2 0pm Family history of spina bifida August 2:20pm History of eating disorder August 27 025 2:20pm Migraine with aura August 27, 2024 2:2 0pm Obesity affecting August 27, 2024 2:20pm August 27, 2024 2:2 0pm Supervision of high-risk August 27, 2024 2:20pm Asthma September 24, 2024 8:5 2am Family history of spina bifida September 8:52am History of eating disorder September 24 025 8:52am Migraine with aura September 24, 2024 8:5 2am Obesity affecting September 24, 2024 8:52am September 24, 2024 8:5 2am Supervision of high-risk September 24, 2024 8:52am Asthma October 22, 2024 12:37 pm Family history of spina bifida October 22, 2024 12:37pm History of eating disorder October 22 12:37pm Migraine with aura October 22, 2024 12:37 pm Obesity affecting October 22 12:37pm October 22, 2024 12:37 pm Supervision of high-risk October 112024 12:37pm Chief Complaint Admit Date NEW OB LMP 04/22July 02, 2024 9 :54am palpitations July 21, 2024 6 :34pm 14wk OB July 30, 2024 1:08pm 18 wk ob August 27, 2024 2:2 0pm 22wk ob September 24, 2024 8:5 2am 1 HOUR GLUCOSE October 22, 2024 12:24 pm 26 wk ob/GLUCOSE October 22, 2024 12:37 pm R/O LABOR October 28, 2024 11:30 pm Chief Complaint Admit Date palpitations July 21, 2024 6 :34pm 14wk OB July 30, 2024 1:08pm 18 wk ob August 27, 2024 2:2 0pm 22wk ob September 24, 2024 8:5 2am 1 HOUR GLUCOSE October 22, 2024 12:24 pm 26 wk ob/GLUCOSE October 22, 2024 12:37 pm R/O LABOR October 28, 2024 11:30 pm R/O LABOR October 29, 2024 7:36a m 28 WK OB November 06, 2024 9:51a m Reason for Visit Admit Date Asthma July 30, 2024 1:08pm Family history of spina bifida July 30, 2024 1:08pm History of eating disorder July 1:08pm Migraine with aura July 30, 2024 1:08pm Obesity affecting July 1:08pm July 30, 2024 1:08pm Supervision of high-risk Febru ingrid 2024 1:08pm Asthma August 27, 2024 2:2 0pm Family history of spina bifida August 2:20pm History of eating disorder August 27, 025 2:20pm Migraine with aura August 27, 2024 2:2 0pm Obesity affecting August 27, 2024 2:20pm August 27, 2024 2:2 0pm Supervision of high-risk August 27, 2024 2:20pm Asthma September 24, 2024 8:5 2am Family history of spina bifida September 8:52am History of eating disorder September 24, 025 8:52am Migraine with aura September 24, 2024 8:5 2am Obesity affecting September 24, 2024 8:52am September 24, 2024 8:5 2am Supervision of high-risk September 24, 2024 8:52am Asthma October 22, 2024 12:37 pm Family history of spina bifida October 22, 2024 12:37pm History of eating disorder October 22 12:37pm Migraine with aura October 22, 2024 12:37 pm Obesity affecting October 22 12:37pm October 22, 2024 12:37 pm Supervision of high-risk October 112024 12:37pm Asthma November 06, 2024 9:51a m Family history of spina bifida November 06, 2024 9:51am History of eating disorder November 06 9:51am Migraine with aura November 06, 2024 9:51a m Obesity affecting November 06 9:51am November 06, 2024 9:51a m Supervision of high-risk October 122024 9:51am Chief Complaint Admit Date 14wk OB July 30, 2024 1:08pm 18 wk ob August 27, 2024 2:2 0pm wk ob September 24, 2024 8:5 2am 1 HOUR GLUCOSE October 22, 2024 12:24 pm 26 wk ob/GLUCOSE October 22, 2024 12:37 pm R/O LABOR October 28, 2024 11:30 pm R/O LABOR October 29, 2024 7:36a m 28 WK OB November 06, 2024 9:51a m 30 WK OB November 19, 2024 8:27a m Reason for Visit Admit Date Asthma July 30, 2024 1:08pm Family history of spina bifida July 30, 2024 1:08pm History of eating disorder July 1:08pm Migraine with aura July 30, 2024 1:08pm Obesity affecting July 1:08pm July 30, 2024 1:08pm Supervision of high-risk Febru ingrid 2024 1:08pm Asthma August 27, 2024 2:2 0pm Family history of spina bifida August 2:20pm History of eating disorder August 27, 2:20pm Migraine with aura August 27, 2024 2:2 0pm Obesity affecting August 27, 2024 2:20pm August 27, 2024 2:2 0pm Supervision of high-risk August 27, 2024 2:20pm Asthma September 24, 2024 8:5 2am Family history of spina bifida September 8:52am History of eating disorder September 24, 025 8:52am Migraine with aura September 24, 2024 8:5 2am Obesity affecting September 24, 2024 8:52am September 24, 2024 8:5 2am Supervision of high-risk September 24, 2024 8:52am Asthma October 22, 2024 12:37 pm Family history of spina bifida October 22, 2024 12:37pm History of eating disorder October 22 12:37pm Migraine with aura October 22, 2024 12:37 pm Obesity affecting October 22 12:37pm October 22, 2024 12:37 pm Supervision of high-risk October 112024 12:37pm Asthma November 06, 2024 9:51a m Family history of spina bifida November 06, 2024 9:51am History of eating disorder November 06 9:51am Migraine with aura November 06, 2024 9:51a m Obesity affecting November 06 9:51am November 06, 2024 9:51a m Supervision of high-risk October 122024 9:51am Family history of spina bifida November 19, 2024 8:27am History of eating disorder November 19 8:27am History of retained placenta November 19, 025 8:27am Obesity affecting November 19 8:27am November 19, 2024 8:27a m Supervision of high-risk November 19, 2024 8:27am Chief Complaint Admit Date 18 wk ob August 27, 2024 2:2 0pm 22wk ob September 24, 2024 8:5 2am 1 HOUR GLUCOSE October 22, 2024 12:24 pm 26 wk ob/GLUCOSE October 22, 2024 12:37 pm R/O LABOR October 28, 2024 11:30 pm R/O LABOR October 29, 2024 7:36a m 28 WK OB November 06, 2024 9:51a m 30 WK OB November 19, 2024 8:27a m 32 WK OB December 03, 2024 9:09 am Reason for Visit Admit Date Asthma August 27, 2024 2:2 0pm Family history of spina bifida August 2:20pm History of eating disorder August 27, 025 2:20pm Migraine with aura August 27, 2024 2:2 0pm Obesity affecting August 27, 2024 2:20pm August 27, 2024 2:2 0pm Supervision of high-risk August 27, 2024 2:20pm Asthma September 24, 2024 8:5 2am Family history of spina bifida September 8:52am History of eating disorder September 24, 025 8:52am Migraine with aura September 24, 2024 8:5 2am Obesity affecting September 24, 2024 8:52am September 24, 2024 8:5 2am Supervision of high-risk September 24, 2024 8:52am Asthma October 22, 2024 12:37 pm Family history of spina bifida October 22, 2024 12:37pm History of eating disorder October 22 12:37pm Migraine with aura October 22, 2024 12:37 pm Obesity affecting October 22 12:37pm October 22, 2024 12:37 pm Supervision of high-risk October 112024 12:37pm Asthma November 06, 2024 9:51a m Family history of spina bifida November 06, 2024 9:51am History of eating disorder November 06 9:51am Migraine with aura November 06, 2024 9:51a m Obesity affecting November 06 9:51am November 06, 2024 9:51a m Supervision of high-risk October 122024 9:51am Family history of spina bifida November 19, 2024 8:27am History of eating disorder November 19 8:27am History of retained placenta November 19, 025 8:27am Obesity affecting November 19 8:27am November 19, 2024 8:27a m Supervision of high-risk November 19, 2024 8:27am Asthma December 03, 2024 9:09 am Family history of spina bifida November 9:09am History of eating disorder December 03 9:09am History of retained placenta December 03, 2024 9:09am Migraine with aura December 03, 2024 9:09 am Obesity affecting December 03, 025 9:09am December 03, 2024 9:09 am Supervision of high-risk December 03, 2024 9:09am Chief Complaint Admit Date 18 wk ob August 27, 2024 2:2 0pm 22wk ob September 24, 2024 8:5 2am 1 HOUR GLUCOSE October 22, 2024 12:24 pm 26 wk ob/GLUCOSE October 22, 2024 12:37 pm R/O LABOR October 28, 2024 11:30 pm R/O LABOR October 29, 2024 7:36a m 28 WK OB November 06, 2024 9:51a m 30 WK OB November 19, 2024 8:27a m 32 WK OB December 03, 2024 9:09 am LOW MOVEMENT December 13, 2024 1:55p m LOW MOVEMENT December 13, 2024 3:00p m Chief Complaint Admit Date 18 wk ob August 27, 2024 2:2 0pm 22wk ob September 24, 2024 8:5 2am 1 HOUR GLUCOSE October 22, 2024 12:24 pm 26 wk ob/GLUCOSE October 22, 2024 12:37 pm R/O LABOR October 28, 2024 11:30 pm R/O LABOR October 29, 2024 7:36a m 28 WK OB November 06, 2024 9:51a m 30 WK OB November 19, 2024 8:27a m 32 WK OB December 03, 2024 9:09 am LOW MOVEMENT December 13, 2024 1:55p m LOW MOVEMENT December 13, 2024 3:00p m 34 wk ob December 17, 2024 9:29a m Reason for Visit Admit Date Asthma August 27, 2024 2:2 0pm Family history of spina bifida August 2:20pm History of eating disorder August 27, 2 025 2:20pm Migraine with aura August 27, 2024 2:2 0pm Obesity affecting August 27, 2024 2:20pm August 27, 2024 2:2 0pm Supervision of high-risk August 27, 2024 2:20pm Asthma September 24, 2024 8:5 2am Family history of spina bifida September 8:52am History of eating disorder September 24, 2 025 8:52am Migraine with aura September 24, 2024 8:5 2am Obesity affecting September 24, 2024 8:52am September 24, 2024 8:5 2am Supervision of high-risk September 24, 2024 8:52am Asthma October 22, 2024 12:37 pm Family history of spina bifida October 22, 2024 12:37pm History of eating disorder October 22 12:37pm Migraine with aura October 22, 2024 12:37 pm Obesity affecting October 22 12:37pm October 22, 2024 12:37 pm Supervision of high-risk October 112024 12:37pm Asthma November 06, 2024 9:51a m Family history of spina bifida November 06, 2024 9:51am History of eating disorder November 06 9:51am Migraine with aura November 06, 2024 9:51a m Obesity affecting November 06 9:51am November 06, 2024 9:51a m Supervision of high-risk October 122024 9:51am Family history of spina bifida November 19, 2024 8:27am History of eating disorder November 19 8:27am History of retained placenta November 19 025 8:27am Obesity affecting November 19 8:27am November 19, 2024 8:27a m Supervision of high-risk November 19, 2024 8:27am Asthma December 03, 2024 9:09 am Family history of spina bifida November 9:09am History of eating disorder December 03 9:09am History of retained placenta December 03, 2024 9:09am Migraine with aura December 03, 2024 9:09 am Obesity affecting December 03 025 9:09am December 03, 2024 9:09 am Supervision of high-risk December 03, 2024 9:09am Asthma December 17, 2024 9:29a m Family history of spina bifida December 17, 2024 9:29am History of eating disorder December 17 9:29am History of retained placenta December 17, 025 9:29am Migraine with aura December 17, 2024 9:29a m Obesity affecting December 17 9:29am December 17, 2024 9:29a m Supervision of high-risk December 17, 2024 9:29am Chief Complaint Admit Date 18 wk ob August 27, 2024 2:2 0pm wk ob September 24, 2024 8:5 2am 1 HOUR GLUCOSE October 22, 2024 12:24 pm 26 wk ob/GLUCOSE October 22, 2024 12:37 pm R/O LABOR October 28, 2024 11:30 pm R/O LABOR October 29, 2024 7:36a m 28 WK OB November 06, 2024 9:51a m 30 WK OB November 19, 2024 8:27a m 32 WK OB December 03, 2024 9:09 am LOW MOVEMENT December 13, 2024 1:55p m LOW MOVEMENT December 13, 2024 3:00p m 34 wk ob December 17, 2024 9:29a m R/O RUPTURE MEMBRANES December 25, 2024 1: 50pm Chief Complaint Admit Date 22wk ob September 24, 2024 8:5 2am 1 HOUR GLUCOSE October 22, 2024 12:24 pm 26 wk ob/GLUCOSE October 22, 2024 12:37 pm R/O LABOR October 28, 2024 11:30 pm R/O LABOR October 29, 2024 7:36a m 28 WK OB November 06, 2024 9:51a m 30 WK OB November 19, 2024 8:27a m 32 WK OB December 03, 2024 9:09 am LOW MOVEMENT December 13, 2024 1:55p m LOW MOVEMENT December 13, 2024 3:00p m 34 wk ob December 17, 2024 9:29a m R/O RUPTURE [place]BRANES December 25, 2024 1: 50pm R/O RUPTURE MEMBRANES December 25, 2024 7: 07pm 36 wk ob December 31, 2024 9:37 am Reason for Visit Admit Date Asthma September 24, 2024 8:5 2am Family history of spina bifida September 8:52am History of eating disorder September 24 8:52am Migraine with aura September 24, 2024 8:5 2am Obesity affecting September 24, 2024 8:52am September 24, 2024 8:5 2am Supervision of high-risk September 24, 2024 8:52am Asthma October 22, 2024 12:37 pm Family history of spina bifida October 22, 2024 12:37pm History of eating disorder October 22 12:37pm Migraine with aura October 22, 2024 12:37 pm Obesity affecting October 22 12:37pm October 22, 2024 12:37 pm Supervision of high-risk October 112024 12:37pm Asthma November 06, 2024 9:51a m Family history of spina bifida November 06, 2024 9:51am History of eating disorder November 06 9:51am Migraine with aura November 06, 2024 9:51a m Obesity affecting November 06 9:51am November 06, 2024 9:51a m Supervision of high-risk October 122024 9:51am Family history of spina bifida November 19, 2024 8:27am History of eating disorder November 19 8:27am History of retained placenta November 19 025 8:27am Obesity affecting November 19 8:27am November 19, 2024 8:27a m Supervision of high-risk November 19, 2024 8:27am Asthma December 03, 2024 9:09 am Family history of spina bifida November 9:09am History of eating disorder December 03 9:09am History of retained placenta December 03, 2024 9:09am Migraine with aura December 03, 2024 9:09 am Obesity affecting December 03 9:09am December 03, 2024 9:09 am Supervision of high-risk December 03, 2024 9:09am Asthma December 17, 2024 9:29a m Family history of spina bifida December 17, 2024 9:29am History of eating disorder December 17 9:29am History of retained placenta December 17 025 9:29am Migraine with aura December 17, 2024 9:29a m Obesity affecting December 17 9:29am December 17, 2024 9:29a m Supervision of high-risk December 17, 2024 9:29am Asthma December 25, 2024 1:50 pm Family history of spina bifida December 1:50pm History of eating disorder December 25 1:50pm History of retained placenta December 25, 2024 1:50pm Migraine with aura December 25, 2024 1:50 pm Obesity affecting December 25 1:50pm December 25, 2024 1:50 pm Supervision of high-risk December 25, 2024 1:50pm Asthma December 31, 2024 9:37 am Family history of spina bifida December 9:37am History of eating disorder December 31 9:37am History of retained placenta December 31, 2024 9:37am Migraine with aura December 31, 2024 9:37 am Obesity affecting December 31 9:37am December 31, 2024 9:37 am Supervision of high-risk December 31, 2024 9:37am Chief Complaint Admit Date 22wk ob September 24, 2024 8:5 2am 1 HOUR GLUCOSE October 22, 2024 12:24 pm 26 wk ob/GLUCOSE October 22, 2024 12:37 pm R/O LABOR October 28, 2024 11:30 pm R/O LABOR October 29, 2024 7:36a m 28 WK OB November 06, 2024 9:51a m 30 WK OB November 19, 2024 8:27a m 32 WK OB December 03, 2024 9:09 am LOW MOVEMENT December 13, 2024 1:55p m LOW MOVEMENT December 13, 2024 3:00p m 34 wk ob December 17, 2024 9:29a m R/O RUPTURE [facility]BRANES December 25, 2024 1: 50pm R/O RUPTURE [facility]ANES December 25, 2024 7: 07pm 36 wk ob December 31, 2024 9:37 am VISIT December 31 10:25am Additional Source Comments Reason for Visit (unrecogniz ed section and content) Reason Comments Back Pain Specialty Diagnoses / Procedures Referred By Anabel t Referred To Contact Diagnoses Epistaxis Epistaxis [R04.0] Procedures HI CONTROL NASAL HEMORRHAGE ANTERIOR COMPLEX LEFT CONTROL OF ANTERIOR NASAL HEMORRHAGE, COMPLEX Radha Scott, DO [address] [facility] [address] [place] [address] [facility] Main Or [address] [place] [address] Referral ID Status Reason Start Date Expiration Date Visits Re quested Visits Authorized [id number] 1 1 INFORMATION SOURCE (unrecogn ized section and content) DATE CREATED AUTHOR 09/06/2019 [facility] DATE CREATED AUTHOR AUTHOR'S ORGANIZ ATION 12/31/2019 [facility] DATE CREATED AUTHOR AUTHOR'S ORGANIZ ATION 09/30/2023 [facility] DATE CREATED AUTHOR AUTHOR'S ORGANIZ ATION 12/11/2023 [facility] ([place]) DATE CREATED AUTHOR AUTHOR'S ORGANIZ ATION 09/08/2024 [facility] DATE CREATED AUTHOR AUTHOR'S ORGANIZ ATION 12/29/2024 [facility] Care Team (unrecognized sect ion and content) Personnel Name: JENNIFFER PEREA Address: Address: [address] [place] [address]- Care Team Personnel Name: JENNIFFER PEREA Position: P4 Advanced Practice Nurse Med Service: Active Provider Member Role: Primary Care Physician Address: Address: [address] [place] [address]- Care Team Related Persons Name: NORY RAMÍREZ Address: Home [address] [place], [place] [id number] [place] Name: NORY RAMÍREZ Address: Home [id number] [place] [phone] Care Team Personnel Name: JENNIFFER PEREA Position: P4 Advanced Practice Nurse Member Role: Primary Care Physician Address: Address: [address] [place] [address] [place] [address]- Care Team Related Persons Name: FABRIZIO BROWN Address: Home [address] [place] [address] Care Team Personnel Name: JENNIFFER PEREA FISHING FLOATS ASSEMBLER-SEPARATING MACHINE OPERATOR Position: P4 Advanced Practice Nurse Member Role: Primary Care Physician Address: Address: [address] [place], [place] [id number]- Care Team Related Persons Name: FABRIZIO BROWN Address: Home [address] [place], [place] [phone] Care Team Personnel Name: JENNIFFER PEREA FISHING FLOATS ASSEMBLER-SEPARATING MACHINE OPERATOR Position: P4 Advanced Practice Nurse Member Role: Primary Care Physician Address: Address: [address] [place], [place] [address]- Care Team Related Persons Name: FABRIZIO BROWN Address: Home [address] [place] [phone] Care Team Personnel Name: JENNIFFER PEREA FISHING FLOATS ASSEMBLER-SEPARATING MACHINE OPERATOR Position: P4 Advanced Practice Nurse Member Role: Primary Care Physician Address: Address: [address] [place], [place] [phone]- Care Team Related Persons Name: FABRIZIO BROWN Address: Home [address] [place] [phone] Patient Care team informatio n (unrecognized section and content) Team Status: Active Member Role Status Dates Jenniffer Perea CONCESSION ATTENDANT, CONCESSION ATTENDANT-C Primary Care Provider Active Team Status: Inactive Member Role Status Dates Jenniffer Perea NP, CONCESSION ATTENDANT-C Primary Care Provider Active Start: July 02, 2024 End: July 02, 2024 Jenniffer Perea CONCESSION ATTENDANT, CONCESSION ATTENDANT-C Referring Provider Active Start: July 02, 2024 End: July 02, 2024 Dr. Lashay Fields , DO Attending Provider Activ e Start: July 02, 2024 End: July 02, 2024 Team Status: Inactive Member Role Status Dates Jenniffer Perea CONCESSION ATTENDANT, CONCESSION ATTENDANT-C Primary Care Provider Active Start: July 02, 2024 End: July 02, 2024 Dr. Lashay Fields , DO Attending Provider Activ e Start: July 02, 2024 End: July 02, 2024 Dr. Lashay Fields , DO Referring Provider Activ e Start: July 02, 2024 End: July 02, 2024 Team Status: Inactive Member Role Status Dates Jenniffer Perea CONCESSION ATTENDANT, CONCESSION ATTENDANT-C Primary Care Provider Active Start: July 21, 2024 End: July 21, 2024 Aashish Thomas MD Attending Provider Active Star t: July 21, 2024 End: July 21, 2024 Aashish Thomas MD Emergency Provider Active Star t: July 21, 2024 End: July 21, 2024 Team Status: Inactive Member Role Status Dates Jenniffer Perea CONCESSION ATTENDANT, CONCESSION ATTENDANT-C Primary Care Provider Active Start: July 30, 2024 End: July 30, 2024 Jenniffer Perea CONCESSION ATTENDANT, CONCESSION ATTENDANT-C Referring Provider Active Start: July 30, 2024 End: July 30, 2024 Gonzalez Dunne CNM Attending Provider Active S tart: July 30, 2024 End: July 30, 2024 Team Status: Inactive Member Role Status Dates Jenniffer Perea CONCESSION ATTENDANT, CONCESSION ATTENDANT-C Primary Care Provider Active Start: August 27, 2024 End: August 27, 2024 Jenniffer Perea CONCESSION ATTENDANT, CONCESSION ATTENDANT-C Referring Provider Active Start: August 27, 2024 End: August 27, 2024 Dr. Lashay Fields DO Attending Provider Activ e Start: August 27, 2024 End: August 27, 2024 Team Status: Inactive Member Role Status Dates Jenniffer Perea CONCESSION ATTENDANT, CONCESSION ATTENDANT-C Primary Care Provider Active Start: September 24, 2024 End: September 24, 2024 Jenniffer Perea CONCESSION ATTENDANT, CONCESSION ATTENDANT-C Referring Provider Active Start: September 24, 2024 End: September 24, 2024 Dr. Sophia Ellison MD Attending Provider Active Start: September 24, 2024 End: September 24, 2024 Team Status: Inactive Member Role Status Dates Jenniffer Perea CONCESSION ATTENDANT, CONCESSION ATTENDANT-C Primary Care Provider Active Start: October 22, 2024 End: October 22, 2024 Dr. Sophia Ellison MD Attending Provider Active Start: October 22, 2024 End: October 22, 2024 Dr. Sophia Ellison MD Referring Provider Active Start: October 22, 2024 End: October 22, 2024 Team Status: Inactive Member Role Status Dates Jenniffer Perea CONCESSION ATTENDANT, CONCESSION ATTENDANT-C Primary Care Provider Active Start: October 22, 2024 End: October 22, 2024 Jenniffer Perea CONCESSION ATTENDANT, CONCESSION ATTENDANT-C Referring Provider Active Start: October 22, 2024 End: October 22, 2024 Malathi Magdaleno CONCESSION ATTENDANT, CONCESSION ATTENDANT-C Attending Provider Active Start: October 22, 2024 End: October 22, 2024 Team Status: Inactive Member Role Status Dates Jenniffer Perea CONCESSION ATTENDANT, CONCESSION ATTENDANT-C Primary Care Provider Active Start: October 28, 2024 End: October 29, 2024 Dr. 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 Start Date End Date Alanaberenice Jenniffer [address] [place] [id number] PCP - General Nurse Practitioner Family 09/29/23 Team Status: Inactive Member Role Status Dates Jenniffer Perea CONCESSION ATTENDANT, CONCESSION ATTENDANT-C Primary Care Provider, Referri ng Provider Active Malathi Magdaleno CONCESSION ATTENDANT, CONCESSION ATTENDANT-C Attending Provider Active Team Status: Inactive Member Role Status Dates Jenniffer Perea CONCESSION ATTENDANT, CONCESSION ATTENDANT-C Primary Care Provider, Referri ng Provider Active Kristi Mathur CONCESSION ATTENDANT, CONCESSION ATTENDANT-C Attending Provider Active Team Status: Inactive Member Role Status Dates Jenniffer Perea CONCESSION ATTENDANT, CONCESSION ATTENDANT-C Primary Care Provider Active Malathi Magdaleno CONCESSION ATTENDANT, CONCESSION ATTENDANT-C Attending Provider, Referring Provider Active Team Status: Active Member Role Status Dates Jenniffer Perea CONCESSION ATTENDANT, CONCESSION ATTENDANT-C Primary Care Provider Active Start: October 29, 2024 Dr. Sophia Ellison MD Attending Provider Active Start: October 29, 2024 Dr. Sophia Ellison MD Other Provider Active Start: October 29, 2024 Team Status: Inactive Member Role Status Dates Jenniffer Perea CONCESSION ATTENDANT, CONCESSION ATTENDANT-C Primary Care Provider Active Start: November 06, 2024 End: November 06, 2024 Jenniffer Perea CONCESSION ATTENDANT, CONCESSION ATTENDANT-C Referring Provider Active Start: November 06, 2024 End: November 06, 2024 Gonzalez Dunne CNM Attending Provider Active S tart: November 06, 2024 End: November 06, 2024 Team Status: Inactive Member Role Status Dates Jenniffer Perea CONCESSION ATTENDANT, CONCESSION ATTENDANT-C Primary Care Provider Active Start: October 28, 2024 End: October 29, 2024 Dr. Sophia Ellison MD Attending Provider Active Start: October 28, 2024 End: October 29, 2024 Dr. Sophia Ellison MD Referring Provider Active Start: October 28, 2024 End: October 29, 2024 Team Status: Inactive Member Role Status Dates Jenniffer Perea CONCESSION ATTENDANT, CONCESSION ATTENDANT-C Primary Care Provider Active Start: November 19, 2024 End: November 19, 2024 Jenniffer Perea CONCESSION ATTENDANT, CONCESSION ATTENDANT-C Referring Provider Active Start: November 19, 2024 End: November 19, 2024 Malathi Magdaleno CONCESSION ATTENDANT, CONCESSION ATTENDANT-C Attending Provider Active Start: November 19, 2024 End: November 19, 2024 Team Status: Inactive Member Role Status Dates Jenniffer Perea CONCESSION ATTENDANT, CONCESSION ATTENDANT-C Primary Care Provider Active Start: December 03, 2024 End: December 03, 2024 Jenniffer Perea CONCESSION ATTENDANT, CONCESSION ATTENDANT-C Referring Provider Active Start: December 03, 2024 End: December 03, 2024 Dr. Lashay Fields DO Attending Provider Activ e Start: December 03, 2024 End: December 03, 2024 Team Status: Active Member Role/Relationship Status Dates Jenniffer Perea CONCESSION ATTENDANT, CONCESSION ATTENDANT-C Primary Care Provider Active Team Status: Inactive Member Role/Relationship Status Dates Jenniffer Perea CONCESSION ATTENDANT, CONCESSION ATTENDANT-C Primary Care Provider Active Start: August 27, 2024 End: August 27, 2024 Jenniffer Perea CONCESSION ATTENDANT, CONCESSION ATTENDANT-C Referring Provider Active Start: August 27, 2024 End: August 27, 2024 Dr. Lashay Fields DO Attending Provider Activ e Start: August 27, 2024 End: August 27, 2024 Team Status: Inactive Member Role/Relationship Status Dates Jenniffer Perea CONCESSION ATTENDANT, CONCESSION ATTENDANT-C Primary Care Provider Active Start: September 24, 2024 End: September 24, 2024 Jenniffer Perea CONCESSION ATTENDANT, CONCESSION ATTENDANT-C Referring Provider Active Start: September 24, 2024 End: September 24, 2024 Dr. Sophia Ellison MD Attending Provider Active Start: September 24, 2024 End: September 24, 2024 Team Status: Inactive Member Role/Relationship Status Dates Jenniffer Perea CONCESSION ATTENDANT, CONCESSION ATTENDANT-C Primary Care Provider Active Start: October 22, 2024 End: October 22, 2024 Dr. Sophia Ellison MD Attending Provider Active Start: October 22, 2024 End: October 22, 2024 Dr. Sophia Ellison MD Referring Provider Active Start: October 22, 2024 End: October 22, 2024 Team Status: Inactive Member Role/Relationship Status Dates Jenniffer Perea CONCESSION ATTENDANT, CONCESSION ATTENDANT-C Primary Care Provider Active Start: October 22, 2024 End: October 22, 2024 Jenniffer Perea CONCESSION ATTENDANT, CONCESSION ATTENDANT-C Referring Provider Active Start: October 22, 2024 End: October 22, 2024 Malathi Magdaleno CONCESSION ATTENDANT, CONCESSION ATTENDANT-C Attending Provider Active Start: October 22, 2024 End: October 22, 2024 Team Status: Inactive Member Role/Relationship Status Dates Jenniffer Perea CONCESSION ATTENDANT, CONCESSION ATTENDANT-C Primary Care Provider Active Start: October 28, 2024 End: October 29, 2024 Dr. Sophia Ellison MD Attending Provider Active Start: October 28, 2024 End: October 29, 2024 Dr. Sophia Ellison MD Referring Provider Active Start: October 28, 2024 End: October 29, 2024 Team Status: Active Member Role/Relationship Status Dates Jenniffer Perea NP, CONCESSION ATTENDANT-C Primary Care Provider Active Start: October 29, 2024 Dr. Sophia Ellison MD Attending Provider Active Start: October 29, 2024 Dr. Sophia Ellison MD Other Provider Active Start: October 29, 2024 Team Status: Inactive Member Role/Relationship Status Dates Jenniffer Perea CONCESSION ATTENDANT, CONCESSION ATTENDANT-C Primary Care Provider Active Start: November 06, 2024 End: November 06, 2024 Jenniffer Perea CONCESSION ATTENDANT, CONCESSION ATTENDANT-C Referring Provider Active Start: November 06, 2024 End: November 06, 2024 Gonzalez Dunne CNM Attending Provider Active S tart: November 06, 2024 End: November 06, 2024 Team Status: Inactive Member Role/Relationship Status Dates Jenniffer Perea CONCESSION ATTENDANT, CONCESSION ATTENDANT-C Primary Care Provider Active Start: November 19, 2024 End: November 19, 2024 Jenniffer Perea CONCESSION ATTENDANT, CONCESSION ATTENDANT-C Referring Provider Active Start: November 19, 2024 End: November 19, 2024 Malathi Magdaleno CONCESSION ATTENDANT, CONCESSION ATTENDANT-C Attending Provider Active Start: November 19, 2024 End: November 19, 2024 Team Status: Inactive Member Role/Relationship Status Dates Jenniffer Perea CONCESSION ATTENDANT, CONCESSION ATTENDANT-C Primary Care Provider Active Start: December 03, 2024 End: December 03, 2024 Jenniffer Perea CONCESSION ATTENDANT, CONCESSION ATTENDANT-C Referring Provider Active Start: December 03, 2024 End: December 03, 2024 Dr. Lashay Fields , Attending Provider Activ e Start: December 03, 2024 End: December 03, 2024 Team Status: Inactive Member Role/Relationship Status Dates Jenniffer Perea CONCESSION ATTENDANT, CONCESSION ATTENDANT-C Primary Care Provider Active Start: December 13, 2024 End: December 13, 2024 Dr. Sophia Ellison MD Attending Provider Active Start: December 13, 2024 End: December 13, 2024 Dr. Sophia Ellison MD Referring Provider Active Start: December 13, 2024 End: December 13, 2024 Team Status: Active Member Role/Relationship Status Dates Jenniffer Perea CONCESSION ATTENDANT, CONCESSION ATTENDANT-C Primary Care Provider Active Start: December 13, 2024 Dr. Sophia Ellison MD Attending Provider Active Start: December 13, 2024 Dr. Sophia Ellison MD Referring Provider Active Start: December 13, 2024 Dr. Sophia Ellison MD Other Provider Active Start: December 13, 2024 Team Status: Inactive Member Role/Relationship Status Dates Jenniffer Perea CONCESSION ATTENDANT, CONCESSION ATTENDANT-C Primary Care Provider Active Start: December 17, 2024 End: December 17, 2024 Jenniffer Perea CONCESSION ATTENDANT, CONCESSION ATTENDANT-C Referring Provider Active Start: December 17, 2024 End: December 17, 2024 Malathi Magdaleno CONCESSION ATTENDANT, CONCESSION ATTENDANT-C Attending Provider Active Start: December 17, 2024 End: December 17, 2024 Team Status: Inactive Member Role/Relationship Status Dates Jenniffer Perea CONCESSION ATTENDANT, CONCESSION ATTENDANT-C Primary Care Provider Active Start: December 25, 2024 End: December 25, 2024 Dr. Lashay Fields DO Attending Provider Activ e Start: December 25, 2024 End: December 25, 2024 Dr. Lashay Fields DO Referring Provider Activ e Start: December 25, 2024 End: December 25, 2024 Team Status: Inactive Member Role/Relationship Status Dates Jenniffer Perea CONCESSION ATTENDANT, CONCESSION ATTENDANT-C Primary Care Provider Active Start: September 24, 2024 End: September 24, 2024 Jenniffer Perea CONCESSION ATTENDANT, CONCESSION ATTENDANT-C Referring Provider Active Start: September 24, 2024 End: September 24, 2024 Dr. Sophia Ellison MD Attending Provider Active Start: September 24, 2024 End: September 24, 2024 Team Status: Inactive Member Role/Relationship Status Dates Jenniffer Perea CONCESSION ATTENDANT, CONCESSION ATTENDANT-C Primary Care Provider Active Start: October 22, 2024 End: October 22, 2024 Dr. Sophia Ellison MD Attending Provider Active Start: October 22, 2024 End: October 22, 2024 Dr. Sophia Ellison MD Referring Provider Active Start: October 22, 2024 End: October 22, 2024 Team Status: Inactive Member Role/Relationship Status Dates Jenniffer Perea CONCESSION ATTENDANT, CONCESSION ATTENDANT-C Primary Care Provider Active Start: October 22, 2024 End: October 22, 2024 Jenniffer Perea CONCESSION ATTENDANT, CONCESSION ATTENDANT-C Referring Provider Active Start: October 22, 2024 End: October 22, 2024 Malathi Magdaleno CONCESSION ATTENDANT, CONCESSION ATTENDANT-C Attending Provider Active Start: October 22, 2024 End: October 22, 2024 Team Status: Inactive Member Role/Relationship Status Dates Jenniffer Perea CONCESSION ATTENDANT, CONCESSION ATTENDANT-C Primary Care Provider Active Start: October 28, 2024 End: October 29, 2024 Dr. Sophia Ellison MD Attending Provider Active Start: October 28, 2024 End: October 29, 2024 Dr. Sophia Ellison MD Referring Provider Active Start: October 28, 2024 End: October 29, 2024 Team Status: Active Member Role/Relationship Status Dates Jenniffer Perea CONCESSION ATTENDANT, CONCESSION ATTENDANT-C Primary Care Provider Active Start: October 29, 2024 Dr. Sophia Ellison MD Attending Provider Active Start: October 29, 2024 Dr. Sophia Ellison MD Other Provider Active Start: October 29, 2024 Team Status: Inactive Member Role/Relationship Status Dates Jenniffer Perea CONCESSION ATTENDANT, CONCESSION ATTENDANT-C Primary Care Provider Active Start: November 06, 2024 End: November 06, 2024 Jenniffer Perea CONCESSION ATTENDANT, CONCESSION ATTENDANT-C Referring Provider Active Start: November 06, 2024 End: November 06, 2024 Gonzalez Dunne CNM Attending Provider Active S tart: November 06, 2024 End: November 06, 2024 Team Status: Inactive Member Role/Relationship Status Dates Jenniffer Perea CONCESSION ATTENDANT, CONCESSION ATTENDANT-C Primary Care Provider Active Start: November 19, 2024 End: November 19, 2024 Jenniffer Perea CONCESSION ATTENDANT, CONCESSION ATTENDANT-C Referring Provider Active Start: November 19, 2024 End: November 19, 2024 Malathi Magdaleno CONCESSION ATTENDANT, CONCESSION ATTENDANT-C Attending Provider Active Start: November 19, 2024 End: November 19, 2024 Team Status: Inactive Member Role/Relationship Status Dates Jenniffer Perea CONCESSION ATTENDANT, CONCESSION ATTENDANT-C Primary Care Provider Active Start: December 03, 2024 End: December 03, 2024 Jenniffer Perea CONCESSION ATTENDANT, CONCESSION ATTENDANT-C Referring Provider Active Start: December 03, 2024 End: December 03, 2024 Dr. Lashay Fields DO Attending Provider Activ e Start: December 03, 2024 End: December 03, 2024 Team Status: Inactive Member Role/Relationship Status Dates Jenniffer Perea CONCESSION ATTENDANT, CONCESSION ATTENDANT-C Primary Care Provider Active Start: December 13, 2024 End: December 13, 2024 Dr. Sophia Ellison MD Attending Provider Active Start: December 13, 2024 End: December 13, 2024 Dr. Sophia Ellison MD Referring Provider Active Start: December 13, 2024 End: December 13, 2024 Team Status: Active Member Role/Relationship Status Dates Jenniffer Perea NP, CONCESSION ATTENDANT-C Primary Care Provider Active Start: December 13, 2024 Dr. Sophia Ellison MD Attending Provider Active Start: December 13, 2024 Dr. Sophia Ellison MD Referring Provider Active Start: December 13, 2024 Dr. Sophia Ellison MD Other Provider Active Start: December 13, 2024 Team Status: Inactive Member Role/Relationship Status Dates Jenniffer Perea CONCESSION ATTENDANT, CONCESSION ATTENDANT-C Primary Care Provider Active Start: December 17, 2024 End: December 17, 2024 Jenniffer Perea CONCESSION ATTENDANT, CONCESSION ATTENDANT-C Referring Provider Active Start: December 17, 2024 End: December 17, 2024 Malathi Magdaleno CONCESSION ATTENDANT, CONCESSION ATTENDANT-C Attending Provider Active Start: December 17, 2024 End: December 17, 2024 Team Status: Inactive Member Role/Relationship Status Dates Jenniffer Perea NP, CONCESSION ATTENDANT-C Primary Care Provider Active Start: December 25, 2024 End: December 25, 2024 Dr. Lashay Fields , DO Attending Provider Activ e Start: December 25, 2024 End: December 25, 2024 Dr. Lashay Fields , Referring Provider Activ e Start: December 25, 2024 End: December 25, 2024 Team Status: Active Member Role/Relationship Status Dates Jenniffer Perea NP, CONCESSION ATTENDANT-C Primary Care Provider Active Start: December 25, 2024 Dr. Lashay Fields , Attending Provider Activ e Start: December 25, 2024 Dr. Lashay Fields DO Referring Provider Activ e Start: December 25, 2024 Dr. Lashay Fields , DO Other Provider Active Start: December 25, 2024 Team Status: Inactive Member Role/Relationship Status Dates Jenniffer Perea NP, CONCESSION ATTENDANT-C Primary Care Provider Active Start: December 31, 2024 End: December 31, 2024 Jenniffer Perea NP, CONCESSION ATTENDANT-C Referring Provider Active Start: December 31, 2024 End: December 31, 2024 Gonzalez Dunne CNM Attending Provider Active S tart: December 31, 2024 End: December 31, 2024 Team Status: Inactive Member Role/Relationship Status Dates Jenniffer Perea NP, CONCESSION ATTENDANT-C Primary Care Provider Active Start: December 31, 2024 End: December 31, 2024 Gonzalez Dunne CNM Attending Provider Active S tart: December 31, 2024 End: December 31, 2024 Gonzalez Dunne CNM Referring Provider Active S tart: December 31, 2024 End: December 31, 2024 Team Status: Active Member Role/Relationship Status Dates Jenniffer Perea NP, CONCESSION ATTENDANT-C Primary Care Provider Active Start: December 31, 2024 Gonzalez Dunne CNM Attending Provider Active S tart: December 31, 2024 Gonzalez Dunne CNM Referring Provider Active S tart: December 31, 2024 Goals (unrecognized section and content) Goals may be documented in a n alternate section Scheduled Active and Recently Administ ered Medications (unrecognized section and content) Medication Order 09/27/2023 09/28/2023 09/29/2023 acetaminophen (Tylenol) tablet 1,000 mg (COMPLETED) 1,000 mg, Oral, Once, On Margaret 09/29/23 at 0815, For 1 dose, Preprocedure, Administer 60 minutes prior to surgery. 0849 (Given - Provid er: Frandy Porras RN) famotidine (Pepcid) tablet 20 mg (COMPLETED)(Linked Group 1) 20 mg, Oral, Once, On Margaret 09/29/23 at 0815, For 1 dose, Preprocedure, IV or Oral - Use PO option as first line. If unable to tolerate PO, then okay to use IV. 0849 (Given - Provid er: Frandy Porras RN) sodium chloride 0.9% (NS) flush 5-40 mL 5-40 mL, IntraVENous, Every 12 hours, First dose on Margaret 09/29/23 at 0815, Preprocedure, For Line Patency: Peripheral IV = 5 mL; Midline or Central Line = 10 mL/lumen. If following IV push medication, administer flush at same rate as the IV push. Flush volume is determined by type of infusion therapy being given. For non-viscous solutions use: Peripheral IV = 5 mL Midline or Central Line = 10 mL/lumen For viscous solutions (i.e. blood components, parenteral nutrition, contrast media, or after obtaining blood sample) use: Peripheral IV = 10 mL Midline or Central Line = 20 mL/lumen 0815 (Canceled Entry - Provider: Automatic Discharge Provider - Comment: Automatically canceled at discontinue of medication order) Continuous Medication Order 09/27/2023 09/28/2023 09/29/2023 lactated Ringer's (LR) infusion 50 mL/hr, IntraVENous, Continuous, Starting on Margaret 09/29/23 at 0815, Preprocedure, Upon admission to sameday - please start iv if patient does not have iv access. Use 500ml NS for patients on dialysis. 0849 (New Bag - Prov ider: Frandy Porras RN)0930 (Continued by Anesthesia - Provider: MINOR Walsh CRNA)1005 (Anesthesia Volume Adjustment - Provider: MINOR Walsh CRNA) PRN Medication Order 09/27/2023 09/28/2023 09/29/2023 bacitracin ointment (CANCELED) As needed, Starting on Margaret 09/29/23 at 0951, Intraprocedure 0951 (Given - Provid er: Radha Scott DO) diphenhydrAMINE (BENADryl) injection 12.5 mg 12.5 mg, IntraVENous, Once PRN, itching, Starting on Margaret 09/29/23 at 1000, For 1 dose, Recovery (only) hydrALAZINE (Apresoline) injection 5 mg(Linked Group 2) 5 mg, IntraVENous, Every 15 min PRN, high blood pressure, for SBP greater than 160 mmHg for 2 consecutive measurements taken from different sites, Starting on Margaret 09/29/23 at 1000, For 2 doses, Recovery (only), PRN for SBP > 160 for 2 consecutive measurements, and if one of the following conditions is met: 1) If IV labetolol is ineffective. 2) If HR is under 60. 3) If patient has heart block, COPD or asthma. If both labetalol and hydralazine ineffective, notify anesthesia provider. HYDROmorphone (Dilaudid) injection 0.25 mg 0.25 mg, IntraVENous, Every 5 min PRN, moderate pain (4-6), Starting on Margaret 09/29/23 at 1000, For 4 doses, Recovery (only), For Phase I. If Phase II oral narcotics have been administered in the last 60 minutes, do not administer IV narcotics unless specifically approved by provider. HYDROmorphone (Dilaudid) injection 0.5 mg 0.5 mg, IntraVENous, Every 5 min PRN, severe pain (7-10), Starting on Margaret 09/29/23 at 1000, For 4 doses, Recovery (only), For Phase I. If Phase II oral narcotics have been administered in the last 60 minutes, do not administer IV narcotics unless specifically approved by provider. labetalol (Normodyne,Trandate) injection 5 mg(Linked Group 2) 5 mg, IntraVENous, Every 10 min PRN, high blood pressure, for SBP greater than 160 mmHg for 2 consecutive measurements taken from different sites., Starting on Margaret 09/29/23 at 1000, For 2 doses, Recovery (only), PRN for SBP >160 for 2 consecutive measurements, if HR is 60 or greater. If beta wai is contraindicated (HR less than 60, heart block, COPD or asthma) use hydralazine IV order. LORazepam (Ativan) injection 0.5 mg 0.5 mg, IntraVENous, Once PRN, for anxiety or muscle spasm., Starting on Margaret 24 at 1000, For 1 dose, Recovery (only), For IV doses dilute dose with 1ml NS. meperidine (Demerol) injection 12.5 mg 12.5 mg, IntraVENous, Every 5 min PRN, shivering, Starting on Margaret 24 at 1000, For 2 doses, Recovery (only), May give every 5 minutes to max of 25mg. Notify Anesthesia Provider before administration. ondansetron (Zofran) injection 4 mg 4 mg, IntraVENous, Once PRN, nausea, Starting on Margaret 24 at 1000, For 1 dose, Recovery (only), Initial antiemetic therapy. oxyCODONE (Roxicodone) immediate release tablet 10 mg(Linked Group 3) 10 mg, Oral, PRN, severe pain (7-10), Starting on Margaret 24 at 1000, For 1 dose, Recovery (only), PHASE II oxyCODONE (Roxicodone) immediate release tablet 5 mg(Linked Group 3) 5 mg, Oral, PRN, moderate pain (4-6), Starting on Margaret 24 at 1000, For 1 dose, Recovery (only), PHASE II oxymetazoline (Afrin) 0.05 % nasal spray (CANCELED) As needed, Starting on Margaret 09/29/23 at 0952, Intraprocedure 0952 (Given - Provid er: Radha Scott, DO - Comment: on 1x3 cottoniods) sodium chloride 0.9 % bolus 500 mL 500 mL, IntraVENous, at 1,000 mL/hr, Administer over 0.5 Hours, PRN, Anti-nausea, Starting on Margaret 24 at 0958, Recovery (only), Indications: Anti-nausea sodium chloride 0.9 % infusion 5-250 mL/hr, IntraVENous, PRN, if patient receiving piggyback infusions and maintenance fluids are not ordered OR KVO fluids to protect IV site / prevent frequent line interruptions / long duration, Starting on Margaret 09/29/23 at 0802, Preprocedure, For piggyback infusion, administer at same rate as piggyback for a total of 25 mL. Enter 25 mL into dose field and piggyback rate into rate field of order. If piggyback is infusing at a rate less than 100 mL/hr, enter 25 mL into dose field and 100 mL/hr into rate field of order. For KVO fluids, enter rate of 20 mL/hr or less into rate field of order. sodium chloride 0.9% (NS) flush 5-40 mL 5-40 mL, IntraVENous, PRN, line care, After every IV line use, Starting on Margaret 09/29/23 at 0802, Preprocedure, For Line Patency: Peripheral IV = 5 mL; Midline or Central Line = 10 mL/lumen. If following IV push medication, administer flush at same rate as the IV push. Flush volume is determined by type of infusion therapy being given. For non-viscous solutions use: Peripheral IV = 5 mL Midline or Central Line = 10 mL/lumen For viscous solutions (i.e. blood components, parenteral nutrition, contrast media, or after obtaining blood sample) use: Peripheral IV = 10 mL Midline or Central Line = 20 mL/lumen Linked Groups Order Group 1: famotidine (Pepcid) tablet 20 mg (COMPLETED)Jump to med 20 mg, Oral, Once, On Margaret 09/29/23 at 0815, For 1 dose, Preprocedure, IV or Oral - Use PO option as first line. If unable to tolerate PO, then okay to use IV. Or famotidine (Pepcid) 20 mg in sodium chloride (PF) 0.9 % 10 mL injection (COMPLETED) 20 mg, IntraVENous, Administer over 2 Minutes, Once, On Margaret 09/29/23 at 0815, For 1 dose, Preprocedure, IV or Oral Group 2: labetalol (Normodyne,Trandate) injection 5 mgJump to med 5 mg, IntraVENous, Every 10 min PRN, high blood pressure, for SBP greater than 160 mmHg for 2 consecutive measurements taken from different sites., Starting on Margaret 09/29/23 at 1000, For 2 doses, Recovery (only), PRN for SBP >160 for 2 consecutive measurements, if HR is 60 or greater. If beta wai is contraindicated (HR less than 60, heart block, COPD or asthma) use hydralazine IV order. Or hydrALAZINE (Apresoline) injection 5 mgJump to med 5 mg, IntraVENous, Every 15 min PRN, high blood pressure, for SBP greater than 160 mmHg for 2 consecutive measurements taken from different sites, Starting on Margaret 09/29/23 at 1000, For 2 doses, Recovery (only), PRN for SBP > 160 for 2 consecutive measurements, and if one of the following conditions is met: 1) If IV labetolol is ineffective. 2) If HR is under 60. 3) If patient has heart block, COPD or asthma. If both labetalol and hydralazine ineffective, notify anesthesia provider. Group 3: oxyCODONE (Roxicodone) immediate release tablet 5 mgJump to med 5 mg, Oral, PRN, moderate pain (4-6), Starting on Margaret 09/29/23 at 1000, For 1 dose, Recovery (only), PHASE II Or oxyCODONE (Roxicodone) immediate release tablet 10 mgJump to med 10 mg, Oral, PRN, severe pain (7-10), Starting on Margaret 09/29/23 at 1000, For 1 dose, Recovery (only), PHASE II FOR RECORDS PERTAINING TO PATIENTS WHO ARE OR HAVE BEEN ENROLLED IN A CHEMICAL DEPENDENCY/SUBSTANCEABUSE PROGRAM, SOME INFORMATION MAY BE OMITTED. This clinical summary was aggregated from multiple sources. Caution should be exercised in using it in the provision of clinical care. This summary normalizes information from multiple sources, and as a consequence, information in this document may materially change the coding, format and clinical context of patient data. In addition, data may be omitted in some cases. CLINICAL DECISIONS SHOULD BE BASED ON THE PRIMARY CLINICAL RECORDS. [email or web address] provides no warranty or guarantee of the accuracy or completeness of information in this document.
== END 2024-12-31 11:00 | disposition home or self-care (01) ==
LOC: WPOUT 10:29 → WP 10:29
PROVIDERS: PCP Nurse Practitioner Family; Referring Provider Advanced Practice Midwife; Visit Provider Advanced Practice Midwife
DX: Z71.89 Other specified counseling (principal)
CPT/HCPCS: 96158

== ENCOUNTER → 2024-12-31 | Outpatient (CLI) | payer BC, SELFPAY | END | disposition home or self-care (01) | LOC: LABSPEC 10:40 | PROVIDERS: PCP Nurse Practitioner Family; Referring Provider Advanced Practice Midwife; Visit Provider Advanced Practice Midwife | DX: O09.93 Supervision of high risk pregnancy, unspecified, third trimester (principal); Z3A.36 36 weeks gestation of pregnancy | CPT/HCPCS: 87081 ==

== ENCOUNTER → 2025-01-21 | Outpatient (CLI) | payer BC, SELFPAY ==
[2025-01-21 14:58] LABS: ROM Internal Control Test YES-OK TO RESULT pt. (Internal QC); ROM Patient Test Negative (Negative); Record Kit Lot#, ROM+ K3358
== END | disposition home or self-care (01) ==
LOC: LABSPEC 14:25
PROVIDERS: PCP Nurse Practitioner Family; Visit Provider Obstetrics & Gynecology
DX: O99.891 Other specified diseases and conditions complicating pregnancy (principal); N89.8 Other specified noninflammatory disorders of vagina; Z3A.00 Weeks of gestation of pregnancy not specified
CPT/HCPCS: 84112

== ENCOUNTER 2025-01-30 05:01 | Inpatient (IN) | payer BC, SELFPAY ==
[2025-01-30] VITALS (59 sets, daily range): BP systolic 86–142; BP diastolic 48–74; PULSE 72–150; RESP 15–18; TEMP 36.3–36.7; O2SAT 88–100; BMI 35.1
--- OUTSIDE RECORDS SUMMARY | 2025-01-30 04:45 | XMS RPT_ITS | CCD ---
Author Organization [facility] CliniSyar Care Team Providers Care Pit Crew Support Worker Name Role Phone Unavailable Primary Care Provider Unavailabl e ELIAZAR BRICK SETTER OPERATOR-JENNIFFER MAXWELL Primary Care Physician ELIAZAR NO, JENNIFFER Primary Care Physician Jenniffer Perea Primary Care Provider [phone] RADHA SCOTT Attending Unavailable JENNIFFER PEREA Referring Unavailable RADHA SCOTT Admitting Unavailable RADHA SCOTT Attending Unavailable JENNIFFER PEREA Primary Care Unavailable Eliazar PERSONNEL ADVISER, PERSONNEL ADVISER-C Jenniffer Primary Care Provider [phone] Eliazar PERSONNEL ADVISER, PERSONNEL ADVISER-C Jenniffer Referring Provider Rasta PERSONNEL ADVISER, PERSONNEL ADVISER-C Malathi Attending Provider [phone] Kevan PERSONNEL ADVISER, PERSONNEL ADVISER-C Kristi Attending Provider ELIAZAR BRICK SETTER OPERATOR-ALISSA, [facility] Unavail able JAXSON SANTILLAN Attending Unav ailable ELIAZAR BRICK SETTER OPERATOR-ALISSA, [facility] Unavail able MELISA ULLOA MD Attending Unavailable LORSON BRICK SETTER OPERATOR-EMPLOYEE'S REPRESENTATIVE, [place] Primary Care Unavail able LORSON BRICK SETTER OPERATOR-EMPLOYEE'S REPRESENTATIVE, JENNIFFER Attending Unavail able LORSON BRICK SETTER OPERATOR-EMPLOYEE'S REPRESENTATIVE, [place] Primary Care Unavail able LORSON BRICK SETTER OPERATOR-EMPLOYEE'S REPRESENTATIVE, JENNIFFER Attending Unavail able LORSON BRICK SETTER OPERATOR-EMPLOYEE'S REPRESENTATIVE, JENNIFFER Attending Unavail able LORSON BRICK SETTER OPERATOR-EMPLOYEE'S REPRESENTATIVE, [facility] Care Unavail able DEVAN VILLARREAL Attending Unavailable GONZALEZ DUNNE Referring Unavailable Eliazar PERSONNEL ADVISER-C, Arabi Primary Care Provider Rachel Peña RN Attending Provider Unavailabl e Eliazar PERSONNEL ADVISER-C, Jenniffer Referring Provider Dr. Lashay Fields DO Attending Provider Dr. Lashay Fields DO Referring Provider Martha MANRIQUEZ, Aashish Attending Provider Martha MANRIQUEZ, Aashish Emergency Provider Gonzalez Dunne CNM Attending Provider [phone] Scot MANRIQUEZ, Dr. Cortes Attending Provider Dr. Sophia Ellison MD Referring Provider [place] PERSONNEL ADVISER-C, Malathi Attending Provider [phone]) [place] PERSONNEL ADVISER-C, Arabi Primary Care Provider [phone] ) [place] PERSONNEL ADVISER-C, Arabi Primary Care Provider [phone] ) [place] PERSONNEL ADVISER-C, Arabi Referring Provider [phone] Dr. Lashay Fields DO Attending Provider Scot MANRIQUEZ, Dr. Cortes Other Provider 1([phone] ) [place] PERSONNEL ADVISER-C, Arabi Primary Care Provider 1(330 ) [place] PERSONNEL ADVISER-C, Arabi Primary Care Provider 1(330 ) [place] PERSONNEL ADVISER-C, Arabi Referring Provider [phone] Gonzalez Dunne CNM Attending Provider 1([phone]) Dr. Lashay Fields DO Referring Provider [place] PERSONNEL ADVISER-C, Arabi Primary Care Provider 1([phone] ) [place] PERSONNEL ADVISER-C, Arabi Referring Provider [phone] Dr. Lashay Fields DO Attending Provider Dr. Lashay Fields DO Other Provider [phone] Gonzalez Dunne CNM Referring Provider 1(330) [place] PERSONNEL ADVISER-C, Arabi Primary Care Provider 1([phone] ) Dr. Sophia Ellison MD Attending Provider [place] PERSONNEL ADVISER-C, Arabi Referring Provider [phone] Sophia Ellison Attending Unavailable [place] PERSONNEL ADVISER, Arabi Primary Care Unavailable Sophia Ellison Referring Unavailable Sophia Ellison Attending Unavailable [place] PERSONNEL ADVISER, [facility] Unavailable Rachel Peña Attending Unavailable [place] PERSONNEL ADVISER, [facility] Unavailable Sophia Ellison Attending Unavailable Sophia Ellison Referring Unavailable Sophia Ellison Consulting Unavailable [place] PERSONNEL ADVISER, [facility] Unavailable Sophia Ellison Attending Unavailable Sophia Ellison Referring Unavailable [place] PERSONNEL ADVISER, [facility] Unavailable Aashish Thomas Attending Unavailable [place] PERSONNEL ADVISER, [facility] Unavailable Lashay Fields Attending Unavailabl e Vande Velde, Lashay Referring Unavailabl e [place] PERSONNEL ADVISER, [facility] Unavailable Sophia Ellison Consulting Unavailable Sophia Ellison Attending Unavailable [place] PERSONNEL ADVISER, [facility] Unavailable Lashay Fields Attending Unavailabl e Vande Velde, Lashay Referring Unavailabl e Vande Velde, Lashay Consulting Unavailabl e [place] PERSONNEL ADVISER, [facility] Unavailable Sophia Ellison Attending Unavailable [place] PERSONNEL ADVISER, Arabi Referring Unavailable [place] PERSONNEL ADVISER, [facility] Unavailable [place] PERSONNEL ADVISER, Arabi Referring Unavailable [place] PERSONNEL ADVISER, [facility] Unavailable Gonzalez Dunne Attending Unavailable [place] PERSONNEL ADVISER, Malathi Attending Unavailable [place] PERSONNEL ADVISER, [facility] Unavailable [place] PERSONNEL ADVISER, Arabi Referring Unavailable [place] PERSONNEL ADVISER, [facility] Unavailable [place] PERSONNEL ADVISER, Malathi Attending Unavailable [place] PERSONNEL ADVISER, Arabi Referring Unavailable Gonzalez Dunne Attending Unavailable [place] PERSONNEL ADVISER, Arabi Referring Unavailable [place] PERSONNEL ADVISER, [facility] Unavailable [place] PERSONNEL ADVISER, [facility] Unavailable Sophia Ellison Referring Unavailable Sophia Ellison Attending Unavailable Lashay Fields Attending Unavailabl e [place] PERSONNEL ADVISER, Arabi Referring Unavailable [place] PERSONNEL ADVISER, [facility] Unavailable [place] PERSONNEL ADVISER, Arabi Referring Unavailable Gonzalez Dunne Attending Unavailable [place] PERSONNEL ADVISER, [facility] Unavailable [place] PERSONNEL ADVISER, Arabi Referring Unavailable Gonzalez Dunne Attending Unavailable [place] PERSONNEL ADVISER, [facility] Unavailable Lashay Fields Attending Unavailabl e [place] PERSONNEL ADVISER, Arabi Referring Unavailable [place] PERSONNEL ADVISER, [facility] Unavailable Sophia Ellison Admitting Unavailable Sophia Ellison Attending Unavailable [place] PERSONNEL ADVISER, [facility] Unavailable [place] PERSONNEL ADVISER, Malathi Attending Unavailable [place] PERSONNEL ADVISER, Arabi Referring Unavailable [place] PERSONNEL ADVISER, [facility] Unavailable Zachery, Gonzalez Referring Unavailable Gonzalez Dunne Attending Unavailable Eliazar PERSONNEL ADVISER, [facility] Unavailable Lashay Fields Attending Unavailabl e Eliazar PERSONNEL ADVISER, Arabi Referring Unavailable [place] PERSONNEL ADVISER, [facility] Unavailable Lorberenice PERSONNEL ADVISER, [facility] Unavailable Gonzalez Dunne Attending Unavailable [place]be[place] PERSONNEL ADVISER, Arabi Referring Unavailable [place] PERSONNEL ADVISER, [facility] Unavailable Lashay Fields Attending Unavailabl e Alanason PERSONNEL ADVISER, Arabi Referring Unavailable [place] PERSONNEL ADVISER, [facility] Unavailable Sophia Ellison Attending Unavailable [place] PERSONNEL ADVISER, Arabi Referring Unavailable Rasta PERSONNEL ADVISER, Malathi Attending Unavailable [place] PERSONNEL ADVISER, Arabi Referring Unavailable [place] PERSONNEL ADVISER, [facility] Unavailable Lashay Fields Referring UnavailLashay Pinzon Attending Unavailabl e Eliazar PERSONNEL ADVISER, [facility] Unavailable Gonzalez Dunne Referring Unavailable Gonzalez Dunne Attending Unavailable Eliazar PERSONNEL ADVISER, [facility] Unavailable Medications Current Medications Medication Drug Class(es) Dates [...] tab(s), 1 Refill(s), 01/07/23 9:45:00 EDT, [facility]acy: [facility] #[id number], 167.6, cm, 12/08/22 22:42:00 EDT, Height Start [...] day(s), # 12 tab(s), 0 Refill(s), [facility]: [id number], Postoperative pain, 167.6, cm, 02/04/23 6:23:00 EDT, Height, 75, kg, 02/04/23 6:23:00 EDT, Dosing Weight Start Date: 02/04/23 Stop Date: 02/11/23 Status: Ordered [id number] 200 actuat albuterol 0.09 mg/actuat metered dose inhaler (20 sources) beta2-Adrenerg ic Agonist Start: 08-08-2023 Albuterol Sulfate 90 mcg/actuation HFA aerosol inhaler Active 2 NMA INHALATION EVERY 6 HOURS as needed for shortness of breath or wheezing August 08, 2023 1:00am Start: 08-08-2023 take 1 puff(s) by in halation every six hours Albuterol Sulfate Active 2 PUFF INHALATION EVERY 6 HOURS August 08, 2023 1:00am Start: 09-02-2022 take 2 puff(s) by in halation every four hours as needed for wheezing Ventolin HFA MDI (90 mcg/inh) inhalation aerosol 2 puff(s), Inhalation, q4h, PRN as needed for wheezing, # 6.7 gram(s), 0 Refill(s), [facility]: [facility] #[id number], 167, cm, 08/16/22 13:53:00 EST, Height, kg, 06/08/22 10:52:00 EST, Dosing Weight Start Date: 09/02/22 Status: Ordered Start: 09-19-2021 take 2 puff(s) by in halation every four hours as needed for wheezing Ventolin HFA MDI (90 mcg/inh) inhalation aerosol 2 puff(s), Inhalation, q4h, PRN as needed for wheezing, # 1 EA, 0 Refill(s), [facility]: [facility] 167.6, cm, 09/02/20 14:42:00 EDT, Height, kg, 09/02/20 14:42:00 EDT, Dosing Weight Start Date: 09/19/21 Status: Ordered Start: 09-02-2020 take 2 puff(s) by in halation every four hours as needed for wheezing Ventolin HFA MDI (90 mcg/inh) inhalation aerosol 2 puff(s), Inhalation, q4h, PRN as needed for wheezing, # 1 EA, 0 Refill(s), [facility]acy: [facility] [facility], 167.6, cm, 09/02/20 14:42:00 EDT, Height, kg, [...] spray (1 source) Standardized Chemical Allergen Start: 023 End: 023 apply 1 dose topically four times daily Americaine 20% topical spray Dose = 1 rashel, Topical, QID, X 14 day(s), # 1 EA, 0 Refill(s), [facility]: [facility] #[id number], 167.6, cm, 12/08/22 22:42:00 EDT, Height Start Date: 12/10/22 Stop Date: 12/24/22 Status: Ordered DME MISCellaneous (8 sources) Start: 023 DME MISCellaneous See Instructions, Spacer chamber, Dx: J45.909, # 1 EA, 0 Refill(s), Pharmacy: [facility] #[id number], 167, cm, 09/25/22 8:01:00 EDT, Height, 79.5 Start Date: 09/25/22 Status: Ordered docosahexaenoic acid 200 mg oral capsule (16 sources) Start: 025 take 1 mg by mouth at bedtime Docosahexaenoic Acid ( Dha) 200 mg capsule Active 1 mg PO AT BEDTIME June 26, 2024 1:00am evening primrose oil 1000 mg oral capsule (3 sources) Start: Evening [place] Oil 1000 mg oral capsule Dose : 1,000 mg = 1 cap(s), Oral, Daily, 0 Refill(s) Start Date: 12/07/22 Status: Ordered famotidine 20 mg oral tablet (6 sources) Histamine-2 Receptor Antagonist Start: Pepcid 20 mg oral tablet Dose : 20 mg = 1 tab(s), Oral, BID, # 60 tab(s), 0 Refill(s), Pharmacy: [facility] #[id number], 31 weeks gestation of Gastric reflux, 167, [...] food., # 30 tab(s), 3 Refill(s), Pharmacy: [facility] #[id number], 167.6, cm, 12/08/22 22:42:00 EDT, Height Start Date: 12/10/22 Status: Ordered Start: 09-27-2022 ferrous sulfat e 325 mg (65 mg elemental iron) oral delayed release tablet Dose : 325 mg = 1 tab(s), Oral, qDay, # 30 tab(s), 6 Refill(s), Pharmacy: [facility] #[id number], 167, cm, 09/27/22 13:18:00 EDT, Height Start Date: 09/27/22 Status: Ordered ibuprofen 800 mg oral tablet (6 sources) Nonsteroidal Anti-inflammatory Drug Start: 02-04-2023 End: 02-18-2023 ibuprofen 800 mg oral tablet Dose : 800 mg = 1 tab(s), Oral, q8h, X 14 day(s), # 42 tab(s), 0 Refill(s), 02/18/23 6:33:00 AM EDT, Pharmacy: [facility] #[id number], 167.6, cm, 02/04/23 6:23:00 EDT, Height, kg, 02/04/23 6:23:00 EDT, Dosing Weight Start Date: 02/04/23 Stop Date: 02/18/23 Status: Ordered Start: 12-10-2022 End: 12-24-2022 ibuprofen 800 mg oral tablet Dose : 800 mg = 1 tab(s), Oral, q8h, X 14 day(s), # 42 tab(s), 0 Refill(s), 12/24/22 9:45:00 EDT, Pharmacy: [facility] #[id number], 167.6, cm, 12/08/22 22:42:00 EDT, Height Start Date: 12/10/22 Stop Date: 12/24/22 Status: Ordered Start: 08-01-2020 ibuprofen PRN as needed for pain, 0 Refill(s) Start Date: 08/01/20 Status: Ordered Start: 07-21-2019 End: 07-21-2019 ibuprofen (ADVIL;MOTRIN) tab let 400 mg Lactobacillus Combination No.4 (Probiotic) 3 billion cell capsule (16 sources) Start: 06-26-2024 take 3 capsules by mouth once daily Lactobacillus Combination No.4 (Probiotic) 3 billion cell capsule Active 3000 NMA PO daily June 26, 2024 1:00am administer with a meal Magnesium (16 sources) Start: 06-26-2024 Magnesium 200 mg tablet Active 350 mg PO daily June 26, 2024 1:00am Start: 06-26-2024 take 1 tablet by kyle th once daily Magnesium 200 mg tablet Active 200 mg PO daily June 26, 2024 1:00am melatonin 3 mg oral capsule (9 sources) Start: 12-25-2024 Melatonin 3 mg capsule [...] Status: Ordered nystatin 100 unt/mg topical powder (10 sources) Polyene Antifungal Start: 12-17-2024 Nystatin 100,000 unit/gram powder Active 1 NMA TOPICAL TWICE A DAY 12 07December 17, 2024 9:51am Multivitamin + DHA (3 [...] # 48 tab(s), 3 Refill(s), [facility]: [facility], Menorrhagia, 167.6, cm, 09/02/20 14:42:00 EDT, Height, kg, 09/02/20 14:42:00 EDT, Dosing Weight Start Date: 07/15/21 Status: Ordered Vitamin B6 50 mg oral tablet (5 sources) Start: 11-02-2022 take 1 tablet by mouth twice daily Vitamin B6 50 mg oral tablet 1 tab(s), Oral, BID, # 28 tab(s), 0 Refill(s), [facility]: [facility] #[id number], 167, cm, 10/25/22 10:43:00 EDT, Height, kg, [...] injection 12.5 mg Nystatin 100,000 unit/gram powder (16 sources) Start: 10-22-2024 End: 12-17-2024 Nystatin 100,000 unit/gram powder Discontinued 1 NMA TOPICAL TWICE A DAY 30 October 22, 2024 12:00am December 17, 2024 9:51am Start: 10-22-2024 Nystatin 100,0 00 unit/gram powder Active 1 NMA TOPICAL TWICE A DAY 30 October 22, 2024 12:00am Start: 10-22-2024 Nystatin 100,0 [...] End: 09-29-2023 sodium chloride 0.9% (NS) fl [facility] 5-40 mL Vitamin B Complex (B-Complex ) tablet (16 sources) Start: 06-26-2024 End: 10-29-2024 Vitamin B [...] Translations: [Unspecified abdominal pain] Onset: 07-11-2022 Episodic Administrative/socia l admission (1 source) Other specified counseling; Translations: [Other specified counseling] Onset: 01-03-2025 Episodic Asthma (20 sources) Asthma; Translations: [Unspecified asthma, uncomplicated] Onset: 01-16-2025 09-01-2020 Chronic Comment on above: Albuterol PRN Conditions associated with dizziness or vertigo (1 [...] Onset: 07-11-2022 Chronic Fluid and electrolyte disorders (16 sources) Hypokalemia; Translations: [Hypokalemia] 07-29-2024 Episodic Headache; including migraine (20 sources) Migraine; Translations: [Migraine with aura] Onset: 01-16-2025 09-01-2020 Chronic Comment on above: avoid estrogen [...] Translations: [Obesity complicating , second trimester] Onset: 01-16-2025 Chronic Other complications of (1 source) Obesity [...] high risk , unspecified, third trimester] Onset: 01-16-2025 Episodic Other complications of (1 source) Supervision of other high risk pregnancies, third trimester; Translations: [Supervision of other high risk pregnancies, third trimester] Onset: 01-16-2025 Episodic Other complications of (1 source) Decreased movements, third trimester, not applicable or unspecified; Translations: [Decreased movements, third trimester, not applicable or unspecified] Onset: 12-20-2024 Episodic Other female genital disorders (9 sources) Pain in female genitalia on intercourse 12-04-2021 Chronic Other nervous system disorders (1 source) Postoperative pain ; Translations: [Other acute postprocedural pain] Onset: 02-04-2023 Episodic Other skin disorders (8 sources) Swollen ankle [...] of , childbirth and the puerperium] Onset: 01-16-2025 Episodic Residual codes; unclassified (2 sources) Family history of other congenital malformations, deformations and chromosomal abnormalities; Translations: [Family history of other congenital malformations, deformations and chromosomal abnormalities] Onset: 01-16-2025 Episodic Residual codes; unclassified (1 source) 40 weeks gestation of ; Translations: [40 weeks gestation of ] Onset: 01-28-2025 Episodic Residual codes; unclassified (1 source) 39 weeks gestation of ; Translations: [39 weeks gestation of ] Onset: 01-21-2025 Episodic Residual codes; unclassified (1 source) 38 weeks gestation of ; Translations: [38 weeks gestation of ] Onset: 01-15-2025 Episodic Residual codes; unclassified (1 source) 37 weeks gestation of ; Translations: [37 weeks gestation of ] Onset: 01-07-2025 Episodic Residual codes; unclassified (1 source) 36 weeks gestation of ; Translations: [36 weeks gestation of ] Onset: 12-31-2024 Episodic Residual codes; unclassified (1 source) 34 weeks gestation of ; Translations: [34 weeks gestation of ] Onset: 01-16-2025 Episodic Residual codes; unclassified (1 source) 32 weeks gestation of ; Translations: [32 weeks gestation of ] Onset: 12-03-2024 Episodic Screening and history of mental health and substance abuse codes (20 sources) History of eating disorder; Translations: [Personal history of other mental and behavioral disorders] Onset: 01-16-2025 06-26-2024 Episodic Comment on above: Doing well with wil garcia during , please be mindful of weight checks Sprains and strains (1 source) Low back strain Episodic Unclassified (8 sources) Excessive weight gain during 10-11-2022 Viral infection (5 sources) Disease caused by 2019-nCoV 09-02-2020 Past or Other Problems Problem Classification Problem Date Documented Da te Episodic/Chronic Cardiac dysrhythmias (17 sources) Tachycardia; Translations: [Tachycardia, unspecified] Onset: 08-07-2024 07-29-2024 Episodic Other complications of (1 source) Supervision of high risk , unspecified, unspecified trimester; Translations: [Supervision of high risk , unspecified, unspecified trimester] Onset: 10-24-2024 Episodic Other female genital disorders (1 source) Vulvar cyst; Translations: [Vulvar cyst] Onset: 05-21-2024 Episodic Other and delivery including normal (20 sources) ; Translations: [Encounter for care and examination of lactating mother] Onset: 03-02-2022 05-19-2022 Episodic Comment on above: 2wk PP visit. NIPT low risk, kelli er negative in first . ntd screen declined. GBS neg, NIPT low ri sk, carrier negative in first . ntd screen declined. Other screening for suspected conditions (not mental [...] Test Name Value Interpretation Reference Range Facility Ballroom Dancer Office Visit Reporton 01-28-2025 Ballroom Dancer Office Visit Report [facility] [address], [address] [place] [address] OFFICE VISIT Date of Service: 01/28/25 MR#: [id number] Acct: [id number] Name: CYDNEY BROWN Rep #: [id number] 1 : 2000 Provider: HARJIT Castañeda ams Age/Sex: 24/F [place] [facility] [place]: [place]igned Intake Vital Signs 12/03/24 09:11 01/21/25 14:02 01/28/25 10:31 Height 5 ft 6 in 5 ft 6 in 5 ft 6 in Weight: 216 lb BMI 34.8 BP 118/65 Intake Visit Reasons: 40wk ob *JANNET 01/27 Chief Complaint: 40wk OB Hammerer Tab Required: No Is patient in pain?: No Allergies No Known Allergies Allergy (Verified 01/28/25 10:28) Medications ???Medication ???Instructions ???Recorded ???Confirmed ???Type albuterol sulfate 90 mcg/actuation 2 puff inhalation Q6H PRN 01/28/25 History aerosol inhaler shortness of breath or wheezing docosahexaenoic acid 200 mg 1 mg PO QHS 06/26/24 01/28/25 Hist ory capsule ( DHA) lactobacillus combination no.4 3 3,000 mmu cells PO QDAY 06/26/24 0 01/28/25 History billion cell capsule (Probiotic) magnesium 200 mg tablet 350 mg PO QDAY 06/26/24 01/28/25 H istory acetaminophen 500 mg capsule 1,000 mg PO Q6H PRN pain 10/29/24 01/28/25 History nystatin 100,000 unit/gram topical 1 applic topical BID #30 grams 0 12/17/24 01/28/25 Rx powder melatonin 3 mg capsule 2 mg PO PRN 12/25/24 01/28/25 Hist ory Last Menstrual Period: 04/22/24 : No PFSH PFSH Surgical History S/P nasal surgery S/P wisdom tooth extraction S/P D C (status post dilation and curettage) Family History Grandmother Breast cancer maternal Grandfather Cancer Skin Aunt Cancer Skin Grandmother Heart disease Myocardial infarction Grandfather Kidney failure Father Pre-diabetes Social History adopted: No household members: spouse and children number of children: 1 current occupation: [employer] current occupational exposures/hazards: No pets and animals: [...] 5-6 times per week duration: 30-45 minutes/day feliciano/samaritan: Buddhist seatbelt use: always do you feel safe at home: Yes additional social history: : [employer]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 OB Visit JANNET Calculator Estimated Delivery Date Method Current WG Current Estimate 01/27/25 LMP (Certain) 40w 1d Expected Delivery Route/Plan Labor Preferences- CB/BF [...] ???-???-???-???-???-? ??-???- (more content not included)... Normal [facility] (ROM) Rupture Of Membraneson 01-21-2025 ROM Negative Normal Negative [facility] Comment on above: Result Comment: Amni otic fluid not present indicates No Rupture of Membranes at time of specimen collection. Performed By: #### L 205.1000 #### [facility] [place], [address] Laboratory - Chemistry and C hemistry - challengeOrdered By: Sophia Ellison on 01-21-2025 Glucose Ql (U) Negative [facility] - UrinalysisOrder ed By: Sophia Ellison on 01-21-2025 Protein Ql (U) Negative [facility] Ballroom Dancer Office Visit Reporton 01-21-2025 Ballroom Dancer Office Visit Report [facility] [address], [address] [place] [address] OFFICE VISIT Date of Service: 01/21/25 MR#: [id number] Acct: [id number] Name: CYDNEY BROWN Rep #: [id number] 2 : 2000 Provider: Dr. Sophia mora MD Age/Sex: 24/F [place] [facility] [place]: Signed Intake Vital Signs 12/03/24 09:11 01/15/25 14:26 01/21/25 13:59 01/21/25 14:02 Height 5 ft 6 in 5 ft 6 in 5 ft 6 in 5 ft 6 in Weight: 214 lb BMI 34.5 BP 116/81 H Intake Visit Reasons: 39 wk ob Hammerer Tab Required: No Is patient in pain?: No Allergies No Known Allergies Allergy (Verified 01/21/25 13:58) Medications ???Medication ???Instructions ???Recorded ???Confirmed ???Type albuterol sulfate 90 mcg/actuation 2 puff inhalation Q6H PRN 01/21/25 History aerosol inhaler shortness of breath or wheezing docosahexaenoic acid 200 mg 1 mg PO QHS 06/26/24 01/21/25 Hist ory capsule ( DHA) lactobacillus combination no.4 3 3,000 mmu cells PO QDAY 06/26/24 0 01/21/25 History billion cell capsule (Probiotic) magnesium 200 mg tablet 350 mg PO QDAY 06/26/24 01/21/25 H istory acetaminophen 500 mg capsule 1,000 mg PO Q6H PRN pain 10/29/24 01/21/25 History nystatin 100,000 unit/gram topical 1 applic topical BID #30 grams 0 12/17/24 01/21/25 Rx powder melatonin 3 mg capsule 2 mg PO PRN 12/25/24 01/21/25 Hist ory Last Menstrual Period: 04/22/24 Zika: Zika virus [...] children number of children: 1 current occupation: [employer] current occupational exposures/hazards: No pets and animals: [...] 5-6 times per week duration: 30-45 minutes/day feliciano/samaritan: Buddhist seatbelt use: always do you feel safe at home: Yes additional social history: : 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 OB Visit JANNET Calculator Estimated Delivery Date Method Current WG Current Estimate 01/27/25 LMP (Certain) 39w 1d Expected Delivery Route/Plan Labor Preferences- CB/BF [...] 10w 1d 189 lb (+0 oz) 112/76 -???-???-? (more content not included)... Normal [facility] Laboratory - Chemistry and C hemistry - challengeOrdered By: Lashay Tellez on 01-15-2025 Glucose Ql (U) Negative [facility] - UrinalysisOrder ed By: Lashay Tellez on 01-15-2025 Protein Ql (U) Negative [facility] Ballroom Dancer Office Visit Reporton 01-15-2025 Ballroom Dancer Office Visit Report [facility] [address] [place] [address], [address] [place] [address] OFFICE VISIT Date of Service: 01/15/25 MR#: [id number] Acct: [id number] Name: CYDNEY BROWN Rep #: [id number] : 2000 Provider: Dr. Lashay Franks, Age/Sex: 24/F [place] [facility] [place]: Signed Intake Vital Signs 12/03/24 09:11 01/07/25 11:31 01/15/25 14:26 Height 5 ft 6 in 5 ft 6 in 5 ft 6 in Weight: 213 lb 8 oz BMI 34.4 BP 121/76 H Intake Visit Reasons: 38 wk ob Hammerer Tab Required: No Is patient in pain?: No Allergies No Known Allergies Allergy (Verified 01/15/25 14:25) Medications ???Medication ???Instructions ???Recorded ???Confirmed ???Type albuterol sulfate 90 mcg/actuation 2 puff inhalation Q6H PRN 01/15/25 History aerosol inhaler shortness of breath or wheezing docosahexaenoic acid 200 mg 1 mg PO QHS 06/26/24 01/15/25 Hist ory capsule ( DHA) lactobacillus combination no.4 3 3,000 mmu cells PO QDAY 06/26/24 0 01/15/25 History billion cell capsule (Probiotic) magnesium 200 mg tablet 350 mg PO QDAY 06/26/24 01/15/25 H istory acetaminophen 500 mg capsule 1,000 mg PO Q6H PRN pain 10/29/24 01/15/25 History nystatin 100,000 unit/gram topical 1 applic topical BID #30 grams 0 12/17/24 01/15/25 Rx powder melatonin 3 mg capsule 2 mg PO PRN 12/25/24 01/15/25 Hist ory Last Menstrual Period: 04/22/24 Zika: Zika virus [...] children number of children: 1 current occupation: [employer] current occupational exposures/hazards: No pets and animals: [...] 5-6 times per week duration: 30-45 minutes/day feliciano/samaritan: Buddhist seatbelt use: always do you feel safe at home: Yes additional social history: : 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 Date Name GA/Weeks Outcome Route Bth Weight Gen Labor Lgth Anesthesia Del Ronnieatrusty Provider FOB 12/09/22 Ines 41 live - full term 7lbs 6oz Female 12 hours epi dural Andie Rigo Roberts Delivery Date: 12/09/22 Last Updated by: Rachel Peña RN Retained placenta - bleed x8wk pp, D C 8wk pp HPI 38 wk ob Details: CYDNEY BROWN is a 24 year old who presents for routine OB visit. OB Visit JANNET Calculator Estimated Delivery Date Method Current WG Current Estimate 01/27/25 LMP (Certain) 38w 2d Expected Delivery Route/Plan Labor Preferences- CB/BF [...] 1d 189 lb (+0 oz) 112/76 -???-???-???-???-???- ???-???-? (more content not included)... Normal [facility] Laboratory - Chemistry and C hemistry - challengeOrdered By: Gonzalez Dunne on 01-07-2025 Glucose Ql (U) Negative [facility] Laboratory - UrinalysisOrder ed By: Gonzalez Dunne on 01-07-2025 Protein Ql (U) Negative [facility] Ballroom Dancer Office Visit Reporton 01-07-2025 Ballroom Dancer Office Visit Report [facility] [address], [address] [place] [address] OFFICE VISIT Date of Service: 01/07/25 MR#: [id number] Acct: [id number] Name: CYDNEY BROWN Rep #: [id number] : 2000 Provider: HARJIT Castañeda ams Age/Sex: 24/F [place] [facility] [place]: Signed Intake Vital Signs 12/03/24 09:11 12/31/24 09:41 01/07/25 11:31 Height 5 ft 6 in 5 ft 6 in 5 ft 6 in Weight: 213 lb 2 oz 215 lb 2 oz BMI 34.4 34.7 BP 99/68 119/78 Intake Visit Reasons: 37 wk ob Chief Complaint: 37wk OB Hammerer Tab Required: No Is patient in pain?: No Allergies No Known Allergies Allergy (Verified 01/07/25 11:29) Medications ???Medication ???Instructions ???Recorded ???Confirmed ???Type albuterol sulfate 90 mcg/actuation 2 puff inhalation Q6H PRN 01/07/25 History aerosol inhaler shortness of breath or wheezing docosahexaenoic acid 200 mg 1 mg PO QHS 06/26/24 01/07/25 Hist ory capsule ( DHA) lactobacillus combination no.4 3 3,000 mmu cells PO QDAY 06/26/24 0 01/07/25 History billion cell capsule (Probiotic) magnesium 200 mg tablet 350 mg PO QDAY 06/26/24 01/07/25 H istory acetaminophen 500 mg capsule 1,000 mg PO Q6H PRN pain 10/29/24 01/07/25 History nystatin 100,000 unit/gram topical 1 applic topical BID #30 grams 0 12/17/24 01/07/25 Rx powder melatonin 3 mg capsule 2 mg PO PRN 12/25/24 01/07/25 Hist ory Last Menstrual Period: 04/22/24 : No PFSH PFSH Surgical History S/P nasal surgery S/P wisdom tooth extraction S/P D C (status post dilation and curettage) Family History Grandmother Breast cancer maternal Grandfather Cancer Skin Aunt Cancer Skin Grandmother Heart disease Myocardial infarction Grandfather Kidney failure Father Pre-diabetes Social History adopted: No household members: spouse and children number of children: 1 current occupation: [employer] current occupational exposures/hazards: No pets and animals: [...] 5-6 times per week duration: 30-45 minutes/day feliciano/samaritan: Buddhist seatbelt use: always do you feel safe at home: Yes additional social history: : Fabrizio- Avionics Electronics Technician @ [employer] History 2 Elective abortions Hx Para 1 [...] x8wk pp, D C 8wk pp HPI 37 wk ob Details: CYDNEY BROWN is a 24 year old who presents for routine OB visit. OB Visit JANNET Calculator Estimated Delivery Date Method Current WG Current Estimate 01/27/25 LMP (Certain) 37w 1d Expected Delivery Route/Plan Labor Preferences- CB/BF [...] 189 lb (+0 oz) 112/76 -???-???-???-???-???- ???-???-???-???-???-? ??-? (more content not included)... Normal [facility] Rule out Beta Strep (Grp. B) on 01-02-2025 CECI Group B Beta Streptococcus is not isolated. Normal [facility] Comment on above: Performed By: #### M 100.6581 #### [facility] [address] [place], [address] Laboratory - Chemistry and C hemistry - challengeOrdered By: Gonzalez Dunne on 12-31-2024 Glucose Ql (U) Negative [facility] Laboratory - UrinalysisOrder ed By: Gonzalez Dunne on 12-31-2024 Protein Ql (U) Negative [facility] Ballroom Dancer Office Visit Reporton 12-31-2024 Ballroom Dancer Office Visit Report [facility] [address], [address] [place] [address] OFFICE VISIT Date of Service: 12/31/24 MR#: [id number] Acct: [id number] Name: CYDNEY BROWN Rep #: [id number] : 2000 Provider: HARJIT Castañeda ams Age/Sex: 24/F [place] [facility] [place]: Signed Intake Vital Signs 10/22/24 12:58 12/25/24 13:53 12/31/24 09:41 Height 5 ft 6 in 5 ft 6 in 5 ft 6 in Weight: 213 lb 2 oz BMI 34.4 BP 99/68 Intake Visit Reasons: 36 wk ob Chief Complaint: 36wk OB Hammerer Tab Required: No Is patient in pain?: No Allergies No Known Allergies Allergy (Verified 12/31/24 09:39) Medications ???Medication ???Instructions ???Recorded ???Confirmed ???Type albuterol sulfate 90 mcg/actuation 2 puff inhalation Q6H PRN 12/31/24 History aerosol inhaler shortness of breath or wheezing docosahexaenoic acid 200 mg 1 mg PO QHS 06/26/24 12/31/24 Hist ory capsule ( DHA) lactobacillus combination no.4 3 3,000 mmu cells PO QDAY 06/26/24 0 12/31/24 History billion cell capsule (Probiotic) magnesium 200 mg tablet 350 mg PO QDAY 06/26/24 12/31/24 H istory acetaminophen 500 mg capsule 1,000 mg PO Q6H PRN pain 10/29/24 12/31/24 History nystatin 100,000 unit/gram topical 1 applic topical BID #30 grams 0 12/17/24 12/31/24 Rx powder melatonin 3 mg capsule 2 mg PO PRN 12/25/24 12/31/24 Hist ory Last Menstrual Period: 04/22/24 : No PFSH PFSH Surgical History S/P nasal surgery S/P wisdom tooth extraction S/P D C (status post dilation and curettage) Family History Grandmother Breast cancer maternal Grandfather Cancer Skin Aunt Cancer Skin Grandmother Heart disease Myocardial infarction Grandfather Kidney failure Father Pre-diabetes Social History adopted: No household members: spouse and children number of children: 1 current occupation: [employer] current occupational exposures/hazards: No pets and animals: [...] 5-6 times per week duration: 30-45 minutes/day feliciano/samaritan: Buddhist seatbelt use: always do you feel safe at home: Yes additional social history: : Fabrizio- Avionics Electronics Technician @ [employer] History 2 Elective abortions Hx Para 1 [...] x8wk pp, D C 8wk pp HPI 36 wk ob Details: [...] (+0 oz) 112/76 -???-???-???-???-???- ???-???-???-???-???-? ??-???- 176 -???-???-??? (more content not included)... Normal [facility] Screening beta-hemolytic Str eptococcus cultureOrdered By: Gonzalez Dunne on 12-31-2024 Beta-hemolytic Streptococcus culture Group B Beta Streptococcus is not isolated. [facility] (ROM) Rupture Of Membraneson 12-25-2024 ROM Negative Normal Negative [facility] Comment on above: Result Comment: Amni otic fluid not present indicates No Rupture of Membranes at time of specimen collection. Performed By: #### L 205.1000 ####[facility] [id number] [facility], [address] OB Triage Physician Noteon 0 12-25-2024 OB Triage Physician Note [facility] Medical Records Department [address] [place] [address] OB Triage Physician Note 12/25/24 190 MR#: [id number] Acct: [id number] Name: CYDNEY BROWN Rep #: [id number] : 2000 24 From: Lashay Fields DO PCP: NOEMÍ Alvarez Status:DEP CLI Y Location: [facility] HPI - General HPI Narrative CYDNEY BROWN, [...] children number of children: 1 current occupation: [employer] current occupational exposures/hazards: No pets and animals: [...] 5-6 times per week duration: 30-45 minutes/day feliciano/samaritan: Buddhist seatbelt use: always do you feel safe at home: Yes additional social history: : Fabrizio- Avionics Electronics Technician @ [employer] History 2 Elective abortions Hx Para 1 Spontaneous abortions Hx # Term Pregnancies Ectopic pregnancies Hx # Pregnancies Multiple births # of living children 1 Past Pregnancies Del. Date Name GA/Weeks Outcome Route Bth Weight Infant Gen Labor Lgth Anesthesia Del Locatn Provider FOB 12/09/22 Ines 41 live - full term 7lbs 6oz Female 12 hours epi dural Andiedell Roberts Delivery Date: 12/09/22 Last Updated by: Rachel Peña RN Retained placenta - bleed x8wk pp, Evelia Sheets 8wk pp Visit Details Expected Delivery Route/Plan [...] LMP 01/27/25. Desires nipt. was delivered in [facility] last p (more content not included)... Normal [facility] Laboratory - Chemistry and C hemistry - challengeOrdered By: Malathi Magdaleno on 12-17-2024 Glucose Ql (U) Negative [facility] Laboratory - UrinalysisOrder ed By: Malathi Magdaleno on 12-17-2024 Protein Ql (U) Negative [facility] Ballroom Dancer Office Visit Reporton 12-17-2024 Ballroom Dancer Office Visit Report [facility] [address], [address] [place] [address] OFFICE VISIT Date of Service: 12/17/24 MR#: [id number] Acct: [id number] Name: CYDNEY BROWN Rep #: [id number] : 2000 Provider: NOEMÍ oakley Age/Sex: 24/F [place] [facility] [place]: Signed Intake Vital Signs 10/22/24 12:58 12/03/24 09:11 12/17/24 09:32 12/17/24 09:39 Height 5 ft 6 in 5 ft 6 in 5 ft 6 in 5 ft 6 in Weight: 214 lb 4 oz BMI 34.5 BP 104/80 Intake Visit Reasons: 34 wk ob Chief Complaint: 34 Week OB Hammerer Tab Required: No Is patient in pain?: No [...] children number of children: 1 current occupation: [employer] current occupational exposures/hazards: No pets and animals: [...] 5-6 times per week duration: 30-45 minutes/day feliciano/samaritan: Buddhist seatbelt use: always do you feel safe at home: Yes additional social history: : 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 Date Name GA/Weeks Outcome Route Bth Weight Gen Labor Lgth Anesthesia Del Locatn Provider FOB 12/09/22 Ines 41 live - full term 7lbs 6oz Female 12 hours epi dural Andiedell Roberts Delivery Date: 12/09/22 Last Updated by: [...] ???-???-???-???-???-? ??-???- (more content not included)... Normal [facility] OB Triage Progress Noteon OB Triage Progress Note [facility] Medical Records Department [address] [place] [address] OB Triage Progress Note 07/03/25 1500 MR#: [id number] Acct: [id number] Name: CYDNEY BROWN Rep #: [id number] : 2000 24 From: Sophia Ellison MD PCP: NOEMÍ Alvarez Status:REG CLI Y DOS: Location: [place] [address] Progress Notes Date of Service: 12/13/24 Progress Note: Patient presents for triage evaluation secondary to dec movement FHT: 140 Moderate variability reactive no decelerations category I tracing [place]: no regular Contractions Assessment and plan: 33 weeks decreased movement Reactive NST, reassuring maternal and status patient discharged to home to follow-up as scheduled. See problem list details for additional plan information. Charges/Coding Procedures Urinary/Genital 52xxx-59xxx: 41128-60 non-stress test Interp 12/13/24 1501 Date Sophia Ellison MD Cosigner Signature (if applicable): Date CC: NOEMÍ Perea; Dr. Sophia Ellison MD Signed Normal [facility] Laboratory - Chemistry and C hemistry - challengeOrdered By: Lashay Tellez on 12-03-2024 Glucose Ql (U) Negative [facility] Laboratory - UrinalysisOrder ed By: Lsahay Tellez on 12-03-2024 Protein Ql (U) Negative [facility] Ballroom Dancer Office Visit Reporton 12-03-2024 Ballroom Dancer Office Visit Report [facility] [address], [address] [place] [address] OFFICE VISIT Date of Service: 12/03/24 MR#: [id number] Acct: [id number] Name: CYDNEY BROWN Rep #: [id number] : 2000 Provider: Dr. Lashay Franks DO Age/Sex: 24/F [place] [facility] [place]: Signed Intake Vital Signs 09/24/24 09:00 11/19/24 08:30 12/03/24 09:10 12/03/24 09:11 Height 5 ft 6 in 5 ft 6 in 5 ft 6 in 5 ft 6 in Weight: 215 lb BMI 34.7 BP 127/86 H Intake Visit Reasons: 32 WK OB Hammerer Tab Required: No Is patient in pain?: No [...] children number of children: 1 current occupation: [employer] current occupational exposures/hazards: No pets and animals: [...] 5-6 times per week duration: 30-45 minutes/day feliciano/samaritan: Buddhist seatbelt use: always do you feel safe at home: Yes additional social history: : 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 Date Name GA/Weeks Outcome Route Bth Weight Infant Gen Labor Lgth Anesthesia Del Locatn Provider FOB 12/09/22 Ines 41 live - full term 7lbs 6oz Female 12 hours epi dural Andie Percybernabe Roberts Delivery Date: 12/09/22 Last Updated by: [...] 176 -???-???-???-???-???- (more content not included)... Normal [facility] Laboratory - Chemistry and C hemistry - challengeOrdered By: Malathi Magdaleno on 11-19-2024 Glucose Ql (U) Negative [facility] Laboratory - UrinalysisOrder ed By: Malathi Magdaleno on 11-19-2024 Protein Ql (U) Trace [facility] Ballroom Dancer Office Visit Reporton 11-19-2024 Ballroom Dancer Office Visit Report [facility] [address], [address] [place] [address] OFFICE VISIT Date of Service: 11/19/24 MR#: [id number] Acct: [id number] Name: CYDNEY BROWN Rep #: [id number] : 2000 Provider: NOEMÍ oakley Age/Sex: 24/F [place] [facility]: Signed Intake Vital Signs 09/24/24 09:00 11/06/24 09:54 11/19/24 08:30 Height 5 ft 6 in 5 ft 6 in 5 ft 6 in Weight: 214 lb 2 oz 214 lb 6 oz BMI 34.5 34.6 BP 103/51 L 102/64 Intake Visit Reasons: 30 WK OB Chief Complaint: 30 Week OB Hammerer Tab Required: No Is patient in pain?: No [...] children number of children: 1 current occupation: [employer] current occupational exposures/hazards: No pets and animals: [...] 5-6 times per week duration: 30-45 minutes/day feliciano/samaritan: Buddhist seatbelt use: always do you feel safe at home: Yes additional social history: : Fabrizio- Avionics Electronics Technician @ [employer] History 2 Elective abortions [...] ??-???- 1 (more content not included)... Normal [facility] Laboratory - Chemistry and C hemistry - challengeOrdered By: Gonzalez Dunne on 11-06-2024 Glucose Ql (U) Negative [facility] Laboratory - UrinalysisOrder ed By: Gonzalez Dunne on 11-06-2024 Protein Ql (U) Negative [facility] Ballroom Dancer Office Visit Reporton 11-06-2024 Ballroom Dancer Office Visit Report [facility] [address], [address] [place] [address] OFFICE VISIT Date of Service: 11/06/24 MR#: [id number] Acct: [id number] Name: CYDNEY BROWN Rep #: [id number] : 2000 Provider: HARJIT Castañeda ams Age/Sex: 24/F [place] [facility] [place]: Signed Intake Vital Signs 09/24/24 09:00 10/22/24 12:58 10/28/24 23:52 11/06/24 09:54 Height 5 ft 6 in 5 ft 6 in 5 ft 6 in 5 ft 6 in Weight: 214 lb 2 oz BMI 34.5 BP 103/51 L Intake Visit Reasons: 28 WK OB Chief Complaint: 28wk OB Hammerer Tab Required: No Is patient in pain?: No [...] children number of children: 1 current occupation: [employer] current occupational exposures/hazards: No pets and animals: [...] 5-6 times per week duration: 30-45 minutes/day feliciano/samaritan: Buddhist seatbelt use: always do you feel safe at home: Yes additional social history: : 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 Date Name GA/Weeks Outcome Route Bth Weight Gen Labor Lgth Anesthesia Del Locatn Provider FOB 12/09/22 Ines 41 live - full term 7lbs 6oz Female 12 hours epi dural Andie Rigo Ashbydaisy Ulloa Fabrizio Delivery Date: 12/09/22 Last Updated by: [...] -???-???-???-???-???- ???-???-???- (more content not included)... Normal [facility] Urine Cultureon 10-30-2024 URC Mixed Gram Positive Organisms [place] Count 11,000-25,000 MIXC Mixed contaminants. Submit a new specimen if indicated. Normal [facility] Comment on above: Performed By: #### M 100.2200 ####[facility] [id number] [facility], [address] OB Triage Progress Noteon OB Triage Progress Note [facility] Medical Records Department [address] [place] [address] OB Triage Progress Note 10/29/24 0736 MR#: [id number] Acct: [id number] Name: CYDNEY BROWN Rep #: [id number] : 2000 24 From: Sophia Ellison MD PCP: NOEMÍ Alvarez Status:DEP CLI Y DOS: Location: [facility] Progress Notes Date of Service: 10/28/24 Progress Note: Patient presents for triage evaluation secondary to threatened contracitons FHT: 150 Moderate variability reactive no decelerations category I tracing [place]: isolated Contractions Assessment and plan: 27 weeks threatened contractions cervix closed urine culture sent Reactive NST, reassuring maternal and status patient discharged to home to follow-up as scheduled. See problem list details for additional plan information. Laboratory Studies: Laboratory Tests 10/28/24 Range/Units 00:20 Urine Color Yellow (Yellow) Urine Clarity Clear (Clear) Urine pH 7.0 (5.0 - 8.0) Ur Specific [place] 1.015 (1.002-1.030) Urine Protein 15 H (Negative) mg/dl Urine Glucose (UA) Normal (Normal) mg/dl Urine Ketones Negative (Negative) mg/dl Urine Occult Blood 10 H (Negative) /ul Urine Nitrite Negative (Negative) Urine Bilirubin Negative (Negative) mg/dL Urine Urobilinogen Normal (Normal) mg/dl Ur Leukocyte Esterase Negative (Negative) /ul Charges/Coding Procedures Urinary/Genital 52xxx-59xxx: 55760-74 non-stress test Interp 10/29/24 0737 Date Sophia Ellison MD Cosigner Signature (if applicable): Date CC: PERSONNEL ADVISER-Sudeep Perea; Dr. Sophia Ellison MD Signed Normal [facility] Urinalysis, Routine (Dipstic k)on 10-29-2024 BILIRUBIN URINE Negative Normal Negative [facility] Comment on above: Order Comment: CLEAN CATCH Performed By: #### L 400.2010 #### [facility] [address] [place], [place], [id number] Clarity (U) Clear Normal Clear [facility] Comment on above: Order Comment: CLEAN CATCH Performed By: #### L 400.2010 #### [facility] [address] [place], [place], [id number] Color (U) Yellow Normal Yellow [facility] Comment on above: Order Comment: CLEAN CATCH Performed By: #### L 400 #### [facility] [address] [place], [place], [id number] GLUCOSE, UR Normal Normal Normal [facility] Comment on above: Order Comment: CLEAN CATCH Performed By: #### L 400 #### [facility] [address] [place], [address] KETONE UR Negative Normal Negative [facility] Comment on above: Order Comment: CLEAN CATCH Performed By: #### L 400.2010 #### [facility] [address] [place], [address] LEUK ESTERASE Negative Normal Negative [facility] Comment on above: Order Comment: CLEAN CATCH Performed By: #### L 400.2010 #### [facility] [address] [place], [address] Nitrite Ql (U) Negative Normal Negative [facility] Comment on above: Order Comment: CLEAN CATCH Performed By: #### L 400 #### [facility] [address] [place], [address] OCCULT BLOOD-UR 10 /ul Abnormal Negative [facility] Comment on above: Order Comment: CLEAN CATCH Performed By: #### L 400.2010 #### [facility] [address] [place], [address] pH UR 7.0 Normal 5.0 - 8.0 [facility] Comment on above: Order Comment: CLEAN CATCH Performed By: #### L 400.2010 #### [facility] [address] [place], [address] PROT DIPSTX 15 mg/dl Abnormal Negative [facility] Comment on above: Order Comment: CLEAN CATCH Performed By: #### L 400.2010 #### [facility] [address] [place], [address] SP.GR. DIPSTX 1.015 Normal 1.002-1.030 [facility] Comment on above: Order Comment: CLEAN CATCH Performed By: #### L 400 #### [facility] [address] [place], [address] UROBILI Normal Normal Normal [facility] Comment on above: Order Comment: CLEAN CATCH Performed By: #### L 400.2010 #### [facility] [address] [place], [place], [address] Urine cultureOrdered By: Israel Ellison on 10-29-2024 Bacteria identified Cx Nom (U) Positive Abnormal [facility] Bilirubin Test strip Ql (U)O rdered By: Sophia Ellison on 10-28-2024 Bilirubin Ql (U) Negative Negative [facility] Ketones Test strip Ql (U)Ord ered By: Sophia Ellison on 10-28-2024 Ketones Ql (U) Negative Negative [facility] Nitrite Test strip Ql (U)Ord ered By: Sophia Ellison on 10-28-2024 Nitrite Ql (U) Negative Negative [facility] Protein Test strip Ql (U)Ord ered By: Sophia Ellison on 10-28-2024 Protein Ql (U) 15 mg/dl High Negative [facility] Urine clarityOrdered By: Israel Ellison on 10-28-2024 Clarity (U) Clear Clear [facility] Urine color determinationOrd ered By: Sophia Ellison on 10-28-2024 Color (U) Yellow Yellow [facility] Urine glucose detectionOrder ed By: Sophia Ellison on 10-28-2024 Glucose Ql (U) Normal mg/dl Normal [facility] Urine leukocyte esterase det ection by dipstickOrdered By: Sophia Ellison on 10-28-2024 Leukocyte esterase Test strip Ql (U) Negative Negative [facility] Urine pHOrdered By: Sophia mejia on 10-28-2024 pH (U) 7.0 [pH] 5.0 - 8.0 [facility] Urine specific gravity measu rementOrdered By: Sophia Ellison on 10-28-2024 Specific gravity (U) [Rel density] 1.015 1.002-1.030 [facility] Urine urobilinogen measureme ntOrdered By: Sophia Ellison on 10-28-2024 Urobilinogen Ql (U) Normal mg/dl Normal [facility] Absolute lymphocyte countOrd ered By: Sophia Ellison on 10-22-2024 Lymphocytes Auto (Unsp spec) [#/Vol] 1.49 10*3/uL 0.83-4.51 [facility] Absolute neutrophil countOrd ered By: Sophia Ellison on 10-22-2024 Neutrophils (Bld) [#/Vol] 9.0 10*3/uL High 2.0-7.7 [facility] Automated lymphocyte count a s percentage of total leukocytesOrdered By: Sophia Ellison on 10-22-2024 Lymphocytes/100 WBC Auto (Unsp spec) 13.2 % Low 19-41 [facility] Basophil percentageOrdered B y: Sophia Ellison on 10-22-2024 Basophils/100 WBC (Bld) 0.2 % 0-1 [facility] CBC W/Diff, Automatedon 10-11 Absolute Lymph 1.49 X10 3/uL Normal 0.83-4.51 [facility] Comment on above: Performed By: #### L 509.8002, L501.0250, L3890.6006, L100.0100 ####[facility] [address] [place], [address] Absolute Neut 9.0 X10 3/uL High 2.0-7.7 [facility] Comment on above: Performed By: #### L 509.8002, L501.0250, L3890.6006, L100.0100 ####[facility] [address] [place], [address] Basophils/100 WBC (Bld) 0.2 % Normal 0-1 [facility] Comment on above: Performed By: #### L 509.8002, L501.0250, L3890.6006, L100.0100 ####[facility] [address] [place], [address] Eosinophils/100 WBC (Bld) 0.3 % Normal 0-5 [facility] Comment on above: Performed By: #### L 509.8002, L501.0250, L3890.6006, L100.0100 ####[facility] [address] [place], [address] Erythrocyte distribution width (RBC) [Ratio] 13.5 % Normal 11.6-14.6 [facility] Comment on above: Performed By: #### L 509.8002, L501.0250, L3890.6006, L100.0100 ####[facility] [address] [place], [address] Hematocrit (Bld) [Volume fraction] 40.1 % Normal 37-47 [facility] Comment on above: Performed By: #### L 509.8002, L501.0250, L3890.6006, L100.0100 ####[facility] [address] [place], [address] Hemoglobin (Bld) [Mass/Vol] 13.0 g/dL Normal 12.0-15.0 [facility] Comment on above: Performed By: #### L 509.8002, L501.0250, L3890.6006, L100.0100 ####[facility] [address] [place], [address] IG% 1.200 High 0.0-0.9 [facility] Comment on above: Result Comment: IG% - Immature Granulocytes (promyelocytes, myelocytes and metamyelocytes) > 1% indicates that a LEFT SHIFT is Present. Performed By: #### L 509.8002, L501.0250, L3890.6006, L100.0100 ####[facility] [address] [place], [address] Lymphocytes/100 WBC (Bld) 13.2 % Low 19-41 [facility] Comment on above: Performed By: #### L 509.8002, L501.0250, L3890.6006, L100.0100 ####[facility] [address] [place], [address] MCH (RBC) [Entitic mass] 30.1 pg Normal 27.0-32.0 [facility] Comment on above: Performed By: #### L 509.8002, L501.0250, L3890.6006, L100.0100 ####[facility] [address] [place], [address] MCHC (RBC) [Mass/Vol] 32.4 g/dL Normal 32-36 [facility] Comment on above: Performed By: #### L 509.8002, L501.0250, L3890.6006, L100.0100 ####[facility] [address] [place], [address] MCV (RBC) [Entitic vol] 92.8 fL Normal 81-99 [facility] Comment on above: Performed By: #### L 509.8002, L501.0250, L3890.6006, L100.0100 ####[facility] [address] [place], [address] Monocytes/100 WBC (Bld) 5.1 % Normal 0-10 [facility] Comment on above: Performed By: #### L 509.8002, L501.0250, L3890.6006, L100.0100 ####[facility] [address] [place], [address] Neutrophils/100 WBC (Bld) 80.0 % High 47-70 [facility] Comment on above: Performed By: #### L 509.8002, L501.0250, L3890.6006, L100.0100 ####[facility] [address] [place], [address] Nucleated RBC (Bld) [#/Vol] 0 10*3/uL Normal 0-5 [facility] Comment on above: Performed By: #### L 509.8002, L501.0250, L3890.6006, L100.0100 ####[facility] [address] [place], [address] Platelet mean volume (Bld) [Entitic vol] 9.4 fL Normal 6.2-12.0 [facility] Comment on above: Performed By: #### L 509.8002, L501.0250, L3890.6006, L100.0100 ####[facility] [address] [place], [address] Platelets (Bld) [#/Vol] 358 10*3/uL Normal 150-450 [facility] Comment on above: Performed By: #### L 509.8002, L501.0250, L3890.6006, L100.0100 ####[facility] [address] [place], [address] RBC (Bld) [#/Vol] 4.32 10*6/uL Normal 4.2-5.4 [facility] Comment on above: Performed By: #### L 509.8002, L501.0250, L3890.6006, L100.0100 ####[facility] [address] [place], [address] RDW SD 46.0 fl High 35.1-43.9 [facility] Comment on above: Performed By: #### L 509.8002, L501.0250, L3890.6006, L100.0100 ####[facility] [address] [place], [address] WBC (Bld) [#/Vol] 11.3 10*3/uL High 4.4-11.0 [facility] Comment on above: Performed By: #### L 509.8002, L501.0250, L3890.6006, L100.0100 ####[facility] [address] [place], [address] Eosinophil percentageOrdered By: Sophia lElison on 10-22-2024 Eosinophils/100 WBC (Bld) 0.3 % 0-5 [facility] Erythrocyte distribution wid th ratioOrdered By: Sophia Ellison on 10-22-2024 Erythrocyte distribution width (RBC) [Ratio] 13.5 % 11.6-14.6 [facility] Erythrocyte distribution wid th standard deviationOrdered By: Sophia Ellison on 10-22-2024 Erythrocyte distribution width (RBC) [Ratio] 46.0 fl High 35.1-43.9 [facility] Glucose Challenge Gest 1H 50 regi 10-22-2024 GLU GEST 50g 1H 85 mg/dL Normal 70-140 [facility] Comment on above: Performed By: #### L 509.8002, L501.0250, L3890.6006, L100.0100 ####[facility] [address] [place], [place], [address] Glucose measurement at 2 rosas rs post-dose gestational glucose tolerance testOrdered By: Sophia Ellison on 10-22-2024 Glucose [Mass/Vol] 85 mg/dL 70-140 [facility] HIVon 10-22-2024 HIV Non-Reactive Normal Nonreactive [facility] Comment on above: Result Comment: Non- Reactive Reactive Repeatedly reactive samples must be confirmed according to CDC recommended confirmatory algorithms. The subresults for either HIVAG or AHIV can be used as an aid in the selection of the confirmation algorithm for reactive samples. Send out specimens with Reactive results to [facility] for confirmation. Order the HIV antibody detection and differentiation: lc#[id number] Performed By: #### L 509.8002, L501.0250, L3890.6006, L100.0100 ####[facility] [address] [place], [place], [address] Hematocrit Auto (Bld) [Volum e fraction]Ordered By: Sophia Ellison on 10-22-2024 Hematocrit (Bld) [Volume fraction] 40.1 % 37-47 [facility] Hemoglobin measurementOrdere d By: Sophia Ellison on 10-22-2024 Hemoglobin (Bld) [Mass/Vol] 13.0 g/dL 12.0-15.0 [facility] Immature granulocytes/100 WB C Auto (Bld)Ordered By: Sophia Ellison on 10-22-2024 Immature granulocytes/100 WBC (Bld) 1.200 % High 0.0-0.9 [facility] Comment on above: IG% - Immature Granu locytes (promyelocytes, myelocytes and metamyelocytes) > 1% indicates that a LEFT SHIFT is Present. Laboratory - Chemistry and C hemistry - challengeOrdered By: Malathi Magdaleno on 10-22-2024 Glucose Ql (U) Negative [facility] Laboratory - UrinalysisOrder ed By: Malathi Magdaleno on 10-22-2024 Protein Ql (U) Negative [facility] MCV (mean corpuscular volume ) determinationOrdered By: Sophia Ellison on 10-22-2024 MCV (RBC) [Entitic vol] 92.8 fL 81-99 [facility] Mean corpuscular hemoglobin (MCH) determinationOrdered By: Sophia Ellison on 10-22-2024 MCH (RBC) [Entitic mass] 30.1 pg 27.0-32.0 [facility] Mean corpuscular hemoglobin concentration (MCHC) determinationOrdered By: Sophia Ellison on 10-22-2024 MCHC (RBC) [Mass/Vol] 32.4 g/dL 32-36 [facility] Mean platelet volume determi nationOrdered By: Sophia Ellison on 10-22-2024 Platelet mean volume (Bld) [Entitic vol] 9.4 fL 6.2-12.0 [facility] Monocyte percentageOrdered B y: Sophia Ellison on 10-22-2024 Monocytes/100 WBC (Bld) 5.1 % 0-10 [facility] Neutrophil percentageOrdered By: Sophia Ellison on 10-22-2024 Neutrophils/100 WBC (Bld) 80.0 % High 47-70 [facility] No Panel InformationOrdered By: Sophia Ellison on 10-22-2024 HIV (1&2) Antibody Non-Reactive Nonreactive [facility] Comment on above: Non-ReactiveReactive Repeatedly reactive samples must be confirmed according to CDC recommended confirmatory algorithms. The subresults for either HIVAG or AHIV can be used as an aid in the selection of the confirmation algorithm for reactive samples.Send out specimens with Reactive results to [facility] for confirmation.Order the HIV antibody detection and differentiation: #[id number] Nucleated red blood cell per centageOrdered By: Sophia Ellison on 10-22-2024 Nucleated RBC/100 WBC (Bld) [Ratio] 0 % 0-5 [facility] Office Visit Reporton 10-22-2024 Ballroom Dancer Office Visit Report [facility] [address], [address] [place] [address] OFFICE VISIT Date of Service: 10/22/24 MR#: [id number] Acct: [id number] Name: CYDNEY BROWN Rep #: [id number] : 2000 Provider: NOEMÍ oakley Age/Sex: 24/F [place] [facility] [place]: Signed Intake Vital Signs 08/27/24 14:39 09/24/24 09:00 10/22/24 12:58 Height 5 ft 6 in 5 ft 6 in 5 ft 6 in Weight: 209 lb 2 oz BMI 33.7 BP 98/66 Intake Visit Reasons: 26 wk ob/GLUCOSE Chief Complaint: 26 Week OB/Glucose Hammerer Tab Required: No Is patient in pain?: No [...] children number of children: 1 current occupation: [employer] current occupational exposures/hazards: No pets and animals: [...] 5-6 times per week duration: 30-45 minutes/day feliciano/samaritan: Buddhist seatbelt use: always do you feel safe at home: Yes additional social history: : 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 Normal [facility] Platelet countOrdered By: Dre Ellison on 10-22-2024 Platelets (Bld) [#/Vol] 358 10*3/uL 150-450 [facility] RBC Auto (Bld) [#/Vol]Ordere d By: Sophia Ellison on 10-22-2024 RBC (Bld) [#/Vol] 4.32 10*6/uL 4.2-5.4 [facility] Syphilis Antibodieson 2024 Syphilis Abs Non-Reactive Normal Nonreactive [facility] Comment on above: Performed By: #### L 509.8002, L501.0250, L3890.6006, L100.0100 ####[facility] [address] [place], [address] White blood cell (WBC) count Ordered By: Sophia Ellison on 10-22-2024 WBC (Bld) [#/Vol] 11.3 10*3/uL High 4.4-11.0 [facility] Laboratory - Chemistry and C hemistry - challengeOrdered By: Sophia Ellison on 09-24-2024 Glucose Ql (U) Negative [facility] Laboratory - UrinalysisOrder ed By: Sophia Ellison on 09-24-2024 Protein Ql (U) Negative [facility] Ballroom Dancer Office Visit Reporton 09-24-2024 Ballroom Dancer Office Visit Report [facility], [address] [place] [address] OFFICE VISIT Date of Service: 09/24/24 MR#: [id number] Acct: [id number] Name: CYDNEY BROWN Rep #: [id number] : 2000 Provider: Dr. Sophia mora MD Age/Sex: 24/F [place] [facility] [place]: Signed Intake Vital Signs 07/30/24 13:15 08/27/24 14:39 09/24/24 09:00 Height 5 ft 6 in 5 ft 6 in 5 ft 6 in Weight: 192 lb 4 oz 202 lb 6 oz BMI 31.0 32.6 BP 124/77 H 100/63 Intake Visit Reasons: 22wk ob Hammerer Tab Required: No Is patient in pain?: No [...] children number of children: 1 current occupation: [employer] current occupational exposures/hazards: No pets and animals: [...] 5-6 times per week duration: 30-45 minutes/day feliciano/samaritan: Buddhist seatbelt use: always do you feel safe at home: Yes additional social history: : 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 Date Name GA/Weeks Outcome Route Bth Weight Infant Gen Labor Lgth Anesthesia Del Locatn Provider FOB 12/09/22 Ines 41 live - full term 7lbs 6oz Female 12 hours epi dural Andie Roberts Delivery Date: 12/09/22 Last Updated [...] 6 day (more content not included)... Normal [facility] Laboratory - Chemistry and C hemistry - challengeOrdered By: Lashay Tellez on 08-27-2024 Glucose Ql (U) Negative [facility] Laboratory - UrinalysisOrder ed By: Lashay Tellez on 08-27-2024 Protein Ql (U) Negative [facility] Ballroom Dancer Office Visit Reporton 08-27-2024 Ballroom Dancer Office Visit Report [facility] [address], [address] [place] [address] OFFICE VISIT Date of Service: 08/27/24 MR#: [id number] Acct: [id number] Name: CYDNEY BROWN Rep #: [id number] : 2000 Provider: Dr. Lashay Franks, Age/Sex: 24/F [place] [facility] [place]: Signed Intake Vital Signs 07/02/24 10:19 07/30/24 13:15 08/27/24 14:38 08/27/24 14:39 Height 5 ft 6 in 5 ft 6 in 5 ft 6 in 5 ft 6 in Weight: 201 lb BMI 32.4 BP 115/77 Intake Visit Reasons: 18 wk ob Hammerer Tab Required: No Is patient in pain?: No [...] children number of children: 1 current occupation: [employer] current occupational exposures/hazards: No pets and animals: [...] 5-6 times per week duration: 30-45 minutes/day feliciano/samaritan: Buddhist seatbelt use: always do you feel safe at home: Yes additional social history: : 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 Date Name GA/Weeks Outcome Route Bth Weight Gen Labor Lgth Anesthesia Del Ronnieatn Provider FOB 12/09/22 Ines 41 live - full term 7lbs 6oz Female 12 hours epi dural Andie Roberts Delivery Date: 12/09/22 Last Updated [...] 10 weeks (more content not included)... Normal [facility] Laboratory - Chemistry and C hemistry - challengeOrdered By: Gonzalez Dunne on 07-30-2024 Glucose Ql (U) Negative [facility] Laboratory - UrinalysisOrder ed By: Gonzalez Dunne on 07-30-2024 Protein Ql (U) Negative [facility] Ballroom Dancer Office Visit Reporton 07-30-2024 Ballroom Dancer Office Visit Report [facility] [address], [address] [place] [address] OFFICE VISIT Date of Service: 07/30/24 MR#: [id number] Acct: [id number] Name: CYDNEY BROWN Rep #: [id number] : 2000 Provider: HARJIT Castañeda ams Age/Sex: 24/F [place] [facility] [place]: Signed Intake Vital Signs 05/21/24 11:39 [...] children number of children: 1 current occupation: [employer] current occupational exposures/hazards: No pets and animals: [...] 5-6 times per week duration: 30-45 minutes/day feliciano/samaritan: Buddhist seatbelt use: always do you feel safe at home: Yes additional social history: : 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 Date Name GA/Weeks Outcome Route Bth Weight Infant Gen Labor Lgth Anesthesia Del Locatn Provider FOB 12/09/22 Ines 41 live - full term 7lbs 6oz Female 12 hours epi dural Andie Percy Melisa Artemio Fabrizio Delivery Date: 12/09/22 Last Updated [...] Desires nipt (more content not included)... Normal [facility] 12 Lead EKGon 07-21-2024 12 Lead EKG [facility] Cardiovascular Services [address] [place] [address] 12 Lead EKG 07/21/24 1841 MR#: [id number] Acct: [id number] Name: CYDNEY BROWN Rep #: [id number] : 2000 24 From: Wei Schroeder MD [...] normal ECG Confirmed by WEI SCHROEDER MD ([id number]), editorial clerk SANDIE IVRING ([id number]) on 07/23/2024 6:33:14 AM Referred By: AR Confirmed By: WEI SCHROEDER MD 07/23/24 0633 Date Wei Schroeder MD CC: PERSONNEL ADVISER-C Jenniffer Perea; Dr. Aashish Thomas MD Signed Normal [facility] Absolute lymphocyte countOrd ered By: Aashish Thomas on 07-21-2024 Lymphocytes Auto (Unsp spec) [#/Vol] 0.48 10*3/uL Low 0.83-4.51 [facility] Absolute neutrophil countOrd ered By: Aashish Dolandaisy on 07-21-2024 Neutrophils (Bld) [#/Vol] 8.9 10*3/uL High 2.0-7.7 [facility] Albumin to globulin ratioOrd ered By: Aashish Komaljosephine on 07-21-2024 Albumin/Globulin [Mass ratio] 0.8 {ratio} Low 0.9-2.4 [facility] Automated lymphocyte count a s percentage of total leukocytesOrdered By: Aashish Thomas on 07-21-2024 Lymphocytes/100 WBC Auto (Unsp spec) 4.8 % Low 19-41 [facility] Basophil percentageOrdered B y: Aashish Komaljosephine on 07-21-2024 Basophils/100 WBC (Bld) 0.1 % 0-1 [facility] Bilirubin Test strip Ql (U)O rdered By: Aashish Thomas on 07-21-2024 Bilirubin Ql (U) Negative Negative [facility] Bilirubin, totalOrdered By: Aashish Komaljosephine on 07-21-2024 Bilirubin [Mass/Vol] 0.10 mg/dL Low 0.20-1.00 [facility] Comment on above: For patients on eltr ombopag therapy, use of Dimension Reagan TBIL is not recommended. Blood urea nitrogen (BUN)/cr eatinine ratioOrdered By: Aashish Thomas on 07-21-2024 Urea nitrogen/Creatinine [Mass ratio] 10.0 mg/mg 10-20 [facility] CBC W/Diff, Automatedon Absolute Lymph 0.48 X10 3/uL Low 0.83-4.51 [facility] Comment on above: Performed By: #### L 500.4050, L100.0100 ####[facility] [address] [place], [address] Absolute Neut 8.9 X10 3/uL High 2.0-7.7 [facility] Comment on above: Performed By: #### L 500.4050, L100.0100 ####[facility] [address] [place], [address] Basophils/100 WBC (Bld) 0.1 % Normal 0-1 [facility] Comment on above: Performed By: #### L 500.4050, L100.0100 ####[facility] [address] [place], [address] Eosinophils/100 WBC (Bld) 0.1 % Normal 0-5 [facility] Comment on above: Performed By: #### L 500.4050, L100.0100 ####[facility] [address] [place], [address] Erythrocyte distribution width (RBC) [Ratio] 13.0 % Normal 11.6-14.6 [facility] Comment on above: Performed By: #### L 500.4050, L100.0100 ####[facility] [address] [place], [address] Hematocrit (Bld) [Volume fraction] 40.1 % Normal 37-47 [facility] Comment on above: Performed By: #### L 500.4050, L100.0100 ####[facility] [address] [place], [address] Hemoglobin (Bld) [Mass/Vol] 13.1 g/dL Normal 12.0-15.0 [facility] Comment on above: Performed By: #### L 500.4050, L100.0100 ####[facility] [address] [place], [address] IG% 0.400 Normal 0.0-0.9 [facility] Comment on above: Result Comment: IG% - Immature Granulocytes (promyelocytes, myelocytes and metamyelocytes) > 1% indicates that a LEFT SHIFT is Present. Performed By: #### L 500.4050, L100.0100 ####[facility] [address] [place], [address] Lymphocytes/100 WBC (Bld) 4.8 % Low 19-41 [facility] Comment on above: Performed By: #### L 500.4050, L100.0100 ####[facility] [address] [place], [address] MCH (RBC) [Entitic mass] 29.1 pg Normal 27.0-32.0 [facility] Comment on above: Performed By: #### L 500.4050, L100.0100 ####[facility] [address] [place], [address] MCHC (RBC) [Mass/Vol] 32.7 g/dL Normal 32-36 [facility] Comment on above: Performed By: #### L 500.4050, L100.0100 ####[facility] [address] [place], [address] MCV (RBC) [Entitic vol] 89.1 fL Normal 81-99 [facility] Comment on above: Performed By: #### L 500.4050, L100.0100 ####[facility] [address] [place], [address] Monocytes/100 WBC (Bld) 5.2 % Normal 0-10 [facility] Comment on above: Performed By: #### L 500.4050, L100.0100 ####[facility] [address] [place], [address] Neutrophils/100 WBC (Bld) 89.4 % High 47-70 [facility] Comment on above: Performed By: #### L 500.4050, L100.0100 ####[facility] [address] [place], [address] Nucleated RBC (Bld) [#/Vol] 0 10*3/uL Normal 0-5 [facility] Comment on above: Performed By: #### L 500.4050, L100.0100 ####[facility] [address] [place], [address] Platelet mean volume (Bld) [Entitic vol] 8.6 fL Normal 6.2-12.0 [facility] Comment on above: Performed By: #### L 500.4050, L100.0100 ####[facility] [address] [place], [address] Platelets (Bld) [#/Vol] 307 10*3/uL Normal 150-450 [facility] Comment on above: Performed By: #### L 500.4050, L100.0100 ####[facility] [address] [place], [address] RBC (Bld) [#/Vol] 4.50 10*6/uL Normal 4.2-5.4 [facility] Comment on above: Performed By: #### L 500.4050, L100.0100 ####[facility] [address] [place], [address] RDW SD 42.7 fl Normal 35.1-43.9 [facility] Comment on above: Performed By: #### L 500.4050, L100.0100 ####[facility] [address] [place], [address] WBC (Bld) [#/Vol] 10.0 10*3/uL Normal 4.4-11.0 [facility] Comment on above: Performed By: #### L 500.4050, L100.0100 ####[facility] [address] [place], [address] Carbon dioxide measurementOr dered By: Aashish Thomas on 07-21-2024 CO2 [Moles/Vol] 24.0 mmol/L 21.0-32.0 [facility] Chloride measurementOrdered By: Aashish Thomas on 07-21-2024 Chloride [Moles/Vol] 107 mmol/L 98-107 [facility] Comprehensive Metabolic Prof ilon 07-21-2024 Albumin [Mass/Vol] 3.1 g/dL Low 3.2-5.0 [facility] Comment on above: Performed By: #### L 500.4050, L100.0100 ####[facility] [address] [place], [address] Albumin/Globulin [Mass ratio] 0.8 {ratio} Low 0.9-2.4 [facility] Comment on above: Performed By: #### L 500.4050, L100.0100 ####[facility] [address] [place], [address] ALK P 91 U/L Normal 45-117 [facility] Comment on above: Performed By: #### L 500.4050, L100.0100 ####[facility] [address] [place], [address] ALT [Catalytic activity/Vol] 38 U/L Normal 13-56 [facility] Comment on above: Performed By: #### L 500.4050, L100.0100 ####[facility] [address] [place], [address] AST [Catalytic activity/Vol] 31 U/L Normal 15-37 [facility] Comment on above: Performed By: #### L 500.4050, L100.0100 ####[facility] [address] [place], [address] Bilirubin [Mass/Vol] 0.10 mg/dL Low 0.20-1.00 [facility] Comment on above: Result Comment: For patients on eltrombopag therapy, use of Dimension Reagan TBIL is not recommended. Performed By: #### L 500.4050, L100.0100 ####[facility] [address] [place], [address] BUN/CRE 10.0 RATIO Normal 10-20 [facility] Comment on above: Performed By: #### L 500.4050, L100.0100 ####[facility] [address] [place], [address] CA,Total 8.7 mg/dL Normal 8.5-10.1 [facility] Comment on above: Performed By: #### L 500.4050, L100.0100 ####[facility] [address] [place], [address] Chloride [Moles/Vol] 107 mmol/L Normal 98-107 [facility] Comment on above: Performed By: #### L 500.4050, L100.0100 ####[facility] [address] [place], [address] CO2 [Moles/Vol] 24.0 mmol/L Normal 21.0-32.0 [facility] Comment on above: Performed By: #### L 500.4050, L100.0100 ####[facility] [address] [place], [address] Creatinine [Mass/Vol] 0.60 mg/dL Normal 0.55-1.02 [facility] Comment on above: Result Comment: The validity of the calculated GFR GFRAA in patients over 70 years has not been determined. Clinical correlation is essential. Performed By: #### L 500.4050, L100.0100 ####[facility] [address] [place], [address] ECRCL 163.86 ml/min Normal [facility] Comment on above: Performed By: #### L 500.4050, L100.0100 ####[facility] [address] [place], [address] EST GFR - AA 159 mL/min Normal >60 [facility] Comment on above: Result Comment: Afri can Faroese GFR Calc Performed By: #### L 500.4050, L100.0100 ####[facility] [address] [place], [address] GAP 7 Normal 5-15 [facility] Comment on above: Performed By: #### L 500.4050, L100.0100 ####[facility] [address] [place], [address] GFR/1.73 sq M.predicted among non-blacks MDRD (S/P/Bld) [Vol rate/Area] 132 mL/min/{1.73_m2} Normal >60 [facility] Comment on above: Result Comment: Non- GFR Calc Performed By: #### L 500.4050, L100.0100 ####[facility] [address] [place], [address] Globulin (S) [Mass/Vol] 3.8 g/dL Normal 2.2-4.2 [facility] Comment on above: Performed By: #### L 500.4050, L100.0100 ####[facility] [address] [place], [address] Glucose [Mass/Vol] 90 mg/dL Normal 74-106 [facility] Comment on above: Performed By: #### L 500.4050, L100.0100 ####[facility] [address] [place], [address] Potassium [Moles/Vol] 3.3 mmol/L Low 3.5-5.1 [facility] Comment on above: Performed By: #### L 500.4050, L100.0100 ####[facility] [address] [place], [address] Sodium [Moles/Vol] 138 mmol/L Normal 136-145 [facility] Comment on above: Performed By: #### L 500.4050, L100.0100 ####[facility] [address] [place], [address] T PROT 6.9 g/dL Normal 6.4-8.2 [facility] Comment on above: Performed By: #### L 500.4050, L100.0100 ####[facility] [address] [place], [address] Urea nitrogen [Mass/Vol] 6 mg/dL Low 7-18 [facility] Comment on above: Performed By: #### L 500.4050, L100.0100 ####[facility] [address] [place], [address] Emergency Department Summary on 07-21-2024 Emergency Department Summary [facility] Medical Records Department [address] [place] [address] Emergency Department Summary 07/21/24 MR#: [id number] Acct: [id number] Name: CYDNEY BROWN Rep #: [id number] : 2000 24 From: Aashish Thomas MD PCP: NOEMÍ Alvarez Status:REG ER Location: ED HPI History of Present Illness Chief Complaint: Palpitations Narrative Narrative: 24-year-old female, G2, P1 sees [place] RADIOGRAPHER ANGIOGRAM's presents with heart palpitations and rapid heart [...] of breath. It was suggested by her RADIOGRAPHER ANGIOGRAM that she present to the emergency department [...] children number of children: 1 current occupation: [employer] current occupational exposures/hazards: No pets and animals: [...] 5-6 times per week duration: 30-45 minutes/day feliciano/samaritan: Buddhist seatbelt use: always do you feel safe at home: Yes additional social history: : Fabrizio- [employer] @ [place] [employer] ROS ED ROS Narrative Constitutional: No fever, [...] MDM MDM (more content not included)... Normal [facility] Eosinophil percentageOrdered By: Aashish Thomas on 07-21-2024 Eosinophils/100 WBC (Bld) 0.1 % 0-5 [facility] Erythrocyte distribution wid th ratioOrdered By: Aashish Thomas on 07-21-2024 Erythrocyte distribution width (RBC) [Ratio] 13.0 % 11.6-14.6 [facility] Erythrocyte distribution wid th standard deviationOrdered By: Aashish Thomas on 07-21-2024 Erythrocyte distribution width (RBC) [Ratio] 42.7 fl 35.1-43.9 [facility] Glomerular filtration rate ( GFR) estimationOrdered By: Aashish Thomas on 07-21-2024 GFR/1.73 sq M.predicted among non-blacks MDRD (S/P/Bld) [Vol rate/Area] 132 mL/min/{1.73_m2} >60 [facility] Comment on above: Non- GFR Calc Glucose measurementOrdered B y: Aashish Thomas on 07-21-2024 Glucose [Mass/Vol] 90 mg/dL 74-106 [facility] Hematocrit Auto (Bld) [Volum e fraction]Ordered By: Aashish Thomas on 07-21-2024 Hematocrit (Bld) [Volume fraction] 40.1 % 37-47 [facility] Hemoglobin measurementOrdere d By: Aashish Thomas on 07-21-2024 Hemoglobin (Bld) [Mass/Vol] 13.1 g/dL 12.0-15.0 [facility] Immature granulocytes/100 WB C Auto (Bld)Ordered By: Aashish Thomas on 07-21-2024 Immature granulocytes/100 WBC (Bld) 0.400 % 0.0-0.9 [facility] Comment on above: IG% - Immature Granu locytes (promyelocytes, myelocytes and metamyelocytes) > 1% indicates that a LEFT SHIFT is Present. Ketones Test strip Ql (U)Ord ered By: Aashish Thomas on 07-21-2024 Ketones Ql (U) Negative Negative [facility] - Chemistry and C hemistry - challengeOrdered By: Aashish Thomas on 07-21-2024 AST [Catalytic activity/Vol] 31 U/L 15-37 [facility] MCV (mean corpuscular volume ) determinationOrdered By: Aashish Thomas on 07-21-2024 MCV (RBC) [Entitic vol] 89.1 fL 81-99 [facility] Mean corpuscular hemoglobin (MCH) determinationOrdered By: Aashish Thomas on 07-21-2024 MCH (RBC) [Entitic mass] 29.1 pg 27.0-32.0 [facility] Mean corpuscular hemoglobin concentration (MCHC) determinationOrdered By: Aashish Thomas on 07-21-2024 MCHC (RBC) [Mass/Vol] 32.7 g/dL 32-36 [facility] Mean platelet volume determi nationOrdered By: Aashish Thomas on 07-21-2024 Platelet mean volume (Bld) [Entitic vol] 8.6 fL 6.2-12.0 [facility] Microscopic analysis of urin e for red blood cells (RBC)Ordered By: Aashish Thomas on 07-21-2024 Microscopic analysis of urine for red blood cells (RBC) 0-5 SEEN /hpf 0-5 [facility] Monocyte percentageOrdered B y: Aashish Thomas on 07-21-2024 Monocytes/100 WBC (Bld) 5.2 % 0-10 [facility] Mucus LM Ql (Urine sed)Order ed By: Aashish Thomas on 07-21-2024 Mucus Ql (Urine sed) 0 SEEN /hpf [facility] Neutrophil percentageOrdered By: Aashish Thomas on 07-21-2024 Neutrophils/100 WBC (Bld) 89.4 % High 47-70 [facility] Nitrite Test strip Ql (U)Ord ered By: Aashish Thomas on 07-21-2024 Nitrite Ql (U) Negative Negative [facility] Nucleated red blood cell per centageOrdered By: Aashish Thomas on 07-21-2024 Nucleated RBC/100 WBC (Bld) [Ratio] 0 % 0-5 [facility] Platelet countOrdered By: Malick Thomas on 07-21-2024 Platelets (Bld) [#/Vol] 307 10*3/uL 150-450 [facility] Potassium measurementOrdered By: Aashish Thomas on 07-21-2024 Potassium [Moles/Vol] 3.3 mmol/L Low 3.5-5.1 [facility] Protein Test strip Ql (U)Ord ered By: Aashish Thomas on 07-21-2024 Protein Ql (U) Negative Negative [facility] RBC Auto (Bld) [#/Vol]Ordere d By: Aashish Thomas on 07-21-2024 RBC (Bld) [#/Vol] 4.50 10*6/uL 4.2-5.4 [facility] Serum anion gap measurementO rdered By: Aashish Thomas on 07-21-2024 Anion gap [Moles/Vol] 7 mmol/L 5-15 [facility] Serum globulin measurementOr dered By: Aashish Thomas on 07-21-2024 Globulin (S) [Mass/Vol] 3.8 g/dL 2.2-4.2 [facility] Serum or plasma alanine noland otransferase (ALT) measurementOrdered By: Aashish Thomas on 07-21-2024 ALT [Catalytic activity/Vol] 38 U/L 13-56 [facility] Serum or plasma albumin puma urement (mass/volume)Ordered By: Aashish Thomas on 07-21-2024 Albumin [Mass/Vol] 3.1 g/dL Low 3.2-5.0 [facility] Serum or plasma alkaline coby sphatase measurementOrdered By: Aashish Thomas on 07-21-2024 ALP [Catalytic activity/Vol] 91 U/L 45-117 [facility] Serum or plasma calcium puma urement (mass/volume)Ordered By: Aashish Thomas on 07-21-2024 Calcium [Mass/Vol] 8.7 mg/dL 8.5-10.1 [facility] Serum or plasma creatinine m easurement (mass/volume)Ordered By: Aashish Thomas on 07-21-2024 Creatinine [Mass/Vol] 0.60 mg/dL 0.55-1.02 [facility] Comment on above: The validity of the calculated GFR & GFRAA in patients over 70 years has not been determined. Clinical correlation is essential. Serum or plasma urea nitroge n measurement (mass/volume)Ordered By: Aashish Thomas on 07-21-2024 Urea nitrogen [Mass/Vol] 6 mg/dL Low 7-18 [facility] Sodium levelOrdered By: Aashish Thomas on 07-21-2024 Sodium [Moles/Vol] 138 mmol/L 136-145 [facility] Squamous epithelial cells de tection in urine sediment by light microscopyOrdered By: Aashish Thomas on 07-21-2024 Epithelial cells.squamous LM Ql (Urine sed) 0 SEEN /hpf 5-10 [facility] Total proteinOrdered By: Tanesha Thomas on 07-21-2024 Protein [Mass/Vol] 6.9 g/dL 6.4-8.2 [facility] Urinalysis, Completeon 07-21 RBC 0-5 SEEN Normal 0-5 [facility] Comment on above: Order Comment: CLEAN CATCH Performed By: #### L 400.0001 #### [facility] [place], [address] BACTERIA 0 SEEN Normal None Seen [facility] Comment on above: Order Comment: CLEAN CATCH Performed By: #### L 400.0001 #### [facility] [address] [place], [address] EPI,SQUAMOUS 0 SEEN Normal 5-10 [facility] Comment on above: Order Comment: CLEAN CATCH Performed By: #### L 400.0001 #### [facility] [address] [place], [address] Mucus Ql (Urine sed) 0 SEEN Normal [facility] Comment on above: Order Comment: CLEAN CATCH Performed By: #### L 400.0001 #### [facility] [address] [place], [address] WBC 0 SEEN Normal 0-5 [facility] Comment on above: Order Comment: CLEAN CATCH Performed By: #### L 400.0001 #### [facility] [address] [place], [address] Urine clarityOrdered By: Tanesha Thomas on 07-21-2024 Clarity (U) Sl. Cloudy Clear [facility] Urine color determinationOrd ered By: Aashish Thomas on 07-21-2024 Color (U) Yellow Yellow [facility] Urine glucose detectionOrder ed By: Aashish Thomas on 07-21-2024 Glucose Ql (U) Normal mg/dl Normal [facility] Urine leukocyte esterase det ection by dipstickOrdered By: Aashish Thomas on 07-21-2024 Leukocyte esterase Test strip Ql (U) Negative Negative [facility] Urine pHOrdered By: Aashish wagner on 07-21-2024 pH (U) 7.0 [pH] 5.0 - 8.0 [facility] Urine sediment bacteria coun t by microscopy (number/high power field)Ordered By: Aashish Thomas on 07-21-2024 Bacteria LM.HPF (Urine sed) [#/Area] 0 /[HPF] None Seen [facility] Urine specific gravity measu rementOrdered By: Aashish Thomas on 07-21-2024 Specific gravity (U) [Rel density] 1.005 1.002-1.030 [facility] Urine urobilinogen measureme ntOrdered By: Aashish Thomas on 07-21-2024 Urobilinogen Ql (U) Normal mg/dl Normal [facility] White blood cell (WBC) count Ordered By: Aashish Thomas on 07-21-2024 WBC (Bld) [#/Vol] 10.0 10*3/uL 4.4-11.0 [facility] White blood cell countOrdere d By: Aashish Thomas on 07-21-2024 White blood cell count 0 SEEN /hpf 0-5 [facility] PAP I-G w/rfx hrHPV-Aptimaon 07-09-2024 ADEQ Comment Normal . [facility] Comment on above: Order Comment: Speci men Comment: [id number] Comment: Source.............CervixSpecimen Comment: Other..............Specimen Comment: No. of containers..01 ThinPrep Vial Result Comment: Sati sfactory for evaluation. No endocervical component is identified. An endocervical component is not commonly seen in the patient. Performed By: #### L 7000.1800, L509.8000, L3890.6005, L100.0100, BTS, L7400.0353, L900.0098, L501.9985, L509.4005, L3890.6300, L3890.6100 ####[facility] [address] [place], [address] COMM . Normal . [facility] Comment on above: Order Comment: Speci men Comment: [id number] Comment: Source.............CervixSpecimen Comment: Other..............Specimen Comment: No. of containers..01 ThinPrep Vial Performed By: #### L 7000.1800, L509.8000, L3890.6005, L100.0100, BTS, L7400.0353, L900.0098, L501.9985, L509.4005, L3890.6300, L3890.6100 ####[facility] [address] [place], [place], [address] COMMENT Comment Normal . [facility] Comment on above: Order Comment: Speci men Comment: [id number] Comment: Source.............CervixSpecimen Comment: Other..............Specimen Comment: No. of containers..01 ThinPrep Vial Result Comment: This liquid based ThinPrep(R) pap test was screened with the use of an image guided system. Performed By: #### L 7000.1800, L509.8000, L3890.6005, L100.0100, BTS, L7400.0353, L900.0098, L501.9985, L509.4005, L3890.6300, L3890.6100 ####[facility] [address] [place], [place], [address] DIAG Comment Normal . [facility] Comment on above: Order Comment: Speci men Comment: [id number] Comment: Source.............CervixSpecimen Comment: Other..............Specimen Comment: No. of containers..01 ThinPrep Vial Result Comment: NEGA TIVE FOR INTRAEPITHELIAL LESION OR MALIGNANCY. THIS SPECIMEN WAS RESCREENED PART OF OUR CLINICAL LAB SPECIALIST PROGRAM. Performed By: #### L 7000.1800, L509.8000, L3890.6005, L100.0100, BTS, L7400.0353, L900.0098, L501.9985, L509.4005, L3890.6300, L3890.6100 ####[facility] [address] [place], [place], [address] HPV RFLX Comment Normal . [facility] Comment on above: Order Comment: Speci men Comment: [id number] Comment: Source.............CervixSpecimen Comment: Other..............Specimen Comment: No. of containers..01 ThinPrep Vial Result Comment: The HPV DNA reflex criteria were not met with this specimen result therefore, no HPV testing was performed. Performed at: [address] [id number] Information Systems Administrator: Em Ramirez MD, Phone: [phone] Performed By: #### L 7000.1800, L509.8000, L3890.6005, L100.0100, BTS, L7400.0353, L900.0098, L501.9985, L509.4005, L3890.6300, L3890.6100 ####[facility] [address] [facility] [place], [place], [address] PAPSMR Comment Normal . [facility] Comment on above: Order Comment: Speci men Comment: [id number] Comment: Source.............CervixSpecimen Comment: Other..............Specimen Comment: No. of [...] BTS, L7400.0353, L900.0098, L501.9985, L509.4005, L3890.6300, L3890.6100 ####[facility] [address] [place], [place], [address] PERFORM Comment Normal . [facility] Comment on above: Order Comment: Speci men Comment: [id number] Comment: Source.............CervixSpecimen Comment: Other..............Specimen Comment: No. of containers..01 ThinPrep Vial Result Comment: Freddie Cassidy, Straightedge Worker (ASCP) Performed By: #### L 7000.1800, L509.8000, L3890.6005, L100.0100, BTS, L7400.0353, L900.0098, L501.9985, L509.4005, L3890.6300, L3890.6100 ####[facility] [address] [place], [address] QC REV Comment Normal . [facility] Comment on above: Order Comment: Speci men Comment: [id number] Comment: Source.............CervixSpecimen Comment: Other..............Specimen Comment: No. of containers..01 ThinPrep Vial Result Comment: Jada Roa, Straightedge Worker (ASCP) Performed By: #### L 7000.1800, L509.8000, L3890.6005, L100.0100, BTS, L7400.0353, L900.0098, L501.9985, L509.4005, L3890.6300, L3890.6100 ####[facility] [address] [place], [place], [id number] Chlamydia/GC JOSE aptimaon CHLAMY,NUC ACID Negative Normal Negative [facility] Comment on above: Performed By: #### L 7000.1800, L509.8000, L3890.6005, L100.0100, BTS, L7400.0353, L900.0098, L501.9985, L509.4005, L3890.6300, L3890.6100 ####[facility] [address] [place], [place], [address] GC BY NUC ACID Negative Normal Negative [facility] Comment on above: Result Comment: Perf ormed at: =G - [facility] [address] [place], [place] [id number] Information Systems Administrator: Em Ramirez MD, Phone: [phone] Performed By: #### L 7000.1800, L509.8000, L3890.6005, L100.0100, BTS, L7400.0353, L900.0098, L501.9985, L509.4005, L3890.6300, L3890.6100 ####[facility] [address] [place], [place], [address] Urine Cultureon 07-03-2024 URC Culture exhibits no growth. Normal [facility] Comment on above: Performed By: #### M 100.2200 #### [facility] [address] [place], [place], [address] Absolute lymphocyte countOrd ered By: Lashay Tellez on 07-02-2024 Lymphocytes Auto (Unsp spec) [#/Vol] 1.71 10*3/uL 0.83-4.51 [facility] Absolute neutrophil countOrd ered By: Lashay Tellez on 07-02-2024 Neutrophils (Bld) [#/Vol] 7.5 10*3/uL 2.0-7.7 [facility] Automated lymphocyte count a s percentage of total leukocytesOrdered By: Lashay Tellez on 07-02-2024 Lymphocytes/100 WBC Auto (Unsp spec) 17.3 % Low 19-41 [facility] Basophil percentageOrdered B y: Lashay Tellez on 07-02-2024 Basophils/100 WBC (Bld) 0.3 % 0-1 [facility] CBC W/Diff, Automatedon 01-2 0-2024 Absolute Lymph 1.71 X10 3/uL Normal 0.83-4.51 [facility] Comment on above: Performed By: #### L 7000.1800, L509.8000, L3890.6005, L100.0100, BTS, L7400.0353, L900.0098, L501.9985, L509.4005, L3890.6300, L3890.6100 #### [facility] [address] [place], [address] Absolute Neut 7.5 X10 3/uL Normal 2.0-7.7 [facility] Comment on above: Performed By: #### L 7000.1800, L509.8000, L3890.6005, L100.0100, BTS, L7400.0353, L900.0098, L501.9985, L509.4005, L3890.6300, L3890.6100 #### [facility] [address] [place], [address] Basophils/100 WBC (Bld) 0.3 % Normal 0-1 [facility] Comment on above: Performed By: #### L 7000.1800, L509.8000, L3890.6005, L100.0100, BTS, L7400.0353, L900.0098, L501.9985, L509.4005, L3890.6300, L3890.6100 #### [facility] [address] [place], [address] Eosinophils/100 WBC (Bld) 0.3 % Normal 0-5 [facility] Comment on above: Performed By: #### L 7000.1800, L509.8000, L3890.6005, L100.0100, BTS, L7400.0353, L900.0098, L501.9985, L509.4005, L3890.6300, L3890.6100 #### [facility] [address] [facility] [place], [place], [address] Erythrocyte distribution width (RBC) [Ratio] 13.1 % Normal 11.6-14.6 [facility] Comment on above: Performed By: #### L 7000.1800, L509.8000, L3890.6005, L100.0100, BTS, L7400.0353, L900.0098, L501.9985, L509.4005, L3890.6300, L3890.6100 #### [facility] [address] [place], [address] (112) Hematocrit (Bld) [Volume fraction] 44.3 % Normal 37-47 [facility] Comment on above: Performed By: #### L 7000.1800, L509.8000, L3890.6005, L100.0100, BTS, L7400.0353, L900.0098, L501.9985, L509.4005, L3890.6300, L3890.6100 #### [facility] [address] [facility], [address] Hemoglobin (Bld) [Mass/Vol] 14.1 g/dL Normal 12.0-15.0 [facility] Comment on above: Performed By: #### L 7000.1800, L509.8000, L3890.6005, L100.0100, BTS, L7400.0353, L900.0098, L501.9985, L509.4005, L3890.6300, L3890.6100 #### [facility] [address] [facility], [address] IG% 0.300 Normal 0.0-0.9 [facility] Comment on above: Result Comment: IG% - Immature Granulocytes (promyelocytes, myelocytes and metamyelocytes) > 1% indicates that a LEFT SHIFT is Present. Performed By: #### L 7000.1800, L509.8000, L3890.6005, L100.0100, BTS, L7400.0353, L900.0098, L501.9985, L509.4005, L3890.6300, L3890.6100 #### [facility] [address] [place], [address] Lymphocytes/100 WBC (Bld) 17.3 % Low 19-41 [facility] Comment on above: Performed By: #### L 7000.1800, L509.8000, L3890.6005, L100.0100, BTS, L7400.0353, L900.0098, L501.9985, L509.4005, L3890.6300, L3890.6100 #### [facility] [address] [facility], [address] MCH (RBC) [Entitic mass] 28.7 pg Normal 27.0-32.0 [facility] Comment on above: Performed By: #### L 7000.1800, L509.8000, L3890.6005, L100.0100, BTS, L7400.0353, L900.0098, L501.9985, L509.4005, L3890.6300, L3890.6100 #### [facility] [address] [facility], [address] MCHC (RBC) [Mass/Vol] 31.8 g/dL Low 32-36 [facility] Comment on above: Performed By: #### L 7000.1800, L509.8000, L3890.6005, L100.0100, BTS, L7400.0353, L900.0098, L501.9985, L509.4005, L3890.6300, L3890.6100 #### [facility] [address] [facility] [place] [place], [address] MCV (RBC) [Entitic vol] 90.0 fL Normal 81-99 [facility] Comment on above: Performed By: #### L 7000.1800, L509.8000, L3890.6005, L100.0100, BTS, L7400.0353, L900.0098, L501.9985, L509.4005, L3890.6300, L3890.6100 #### [facility] [address] [place], [address] Monocytes/100 WBC (Bld) 5.6 % Normal 0-10 [facility] Comment on above: Performed By: #### L 7000.1800, L509.8000, L3890.6005, L100.0100, BTS, L7400.0353, L900.0098, L501.9985, L509.4005, L3890.6300, L3890.6100 #### [facility] [address] [facility] [place], [address] Neutrophils/100 WBC (Bld) 76.2 % High 47-70 [facility] Comment on above: Performed By: #### L 7000.1800, L509.8000, L3890.6005, L100.0100, BTS, L7400.0353, L900.0098, L501.9985, L509.4005, L3890.6300, L3890.6100 #### [facility] [address] [place], [address] Nucleated RBC (Bld) [#/Vol] 0 10*3/uL Normal 0-5 [facility] Comment on above: Performed By: #### L 7000.1800, L509.8000, L3890.6005, L100.0100, BTS, L7400.0353, L900.0098, L501.9985, L509.4005, L3890.6300, L3890.6100 #### [facility] [address] [facility] [place], [address] Platelet mean volume (Bld) [Entitic vol] 8.8 fL Normal 6.2-12.0 [facility] Comment on above: Performed By: #### L 7000.1800, L509.8000, L3890.6005, L100.0100, BTS, L7400.0353, L900.0098, L501.9985, L509.4005, L3890.6300, L3890.6100 #### [facility] [address] [place], [address] (848) Platelets (Bld) [#/Vol] 428 10*3/uL Normal 150-450 [facility] Comment on above: Performed By: #### L 7000.1800, L509.8000, L3890.6005, L100.0100, BTS, L7400.0353, L900.0098, L501.9985, L509.4005, L3890.6300, L3890.6100 #### [facility] [address] [place], [place], [id number] (870) RBC (Bld) [#/Vol] 4.92 10*6/uL Normal 4.2-5.4 [facility] Comment on above: Performed By: #### L 7000.1800, L509.8000, L3890.6005, L100.0100, BTS, L7400.0353, L900.0098, L501.9985, L509.4005, L3890.6300, L3890.6100 #### [facility] [address] [place], [place], [id number] (424) RDW SD 42.9 fl Normal 35.1-43.9 [facility] Comment on above: Performed By: #### L 7000.1800, L509.8000, L3890.6005, L100.0100, BTS, L7400.0353, L900.0098, L501.9985, L509.4005, L3890.6300, L3890.6100 #### [facility] [address] [place], [address] WBC (Bld) [#/Vol] 9.9 10*3/uL Normal 4.4-11.0 [facility] Comment on above: Performed By: #### L 7000.1800, L509.8000, L3890.6005, L100.0100, BTS, L7400.0353, L900.0098, L501.9985, L509.4005, L3890.6300, L3890.6100 #### [facility] [address] [place], [address] Cervical or vagninal specime n microscopic examination by cytology stain (reported asOrdered By: Lashay Tellez on 07-02-2024 Cytology report Cyto stain Doc (Cvx/Vag) Comment . [facility] Comment on above: The Pap smear is [...] rRNA JOSE+probe Ql (Unsp spec) Negative Negative [facility] Eosinophil percentageOrdered By: Lashay Tellez on 07-02-2024 Eosinophils/100 WBC (Bld) 0.3 % 0-5 [facility] Erythrocyte distribution wid th ratioOrdered By: Lashay Tellez on 07-02-2024 Erythrocyte distribution width (RBC) [Ratio] 13.1 % 11.6-14.6 [facility] Erythrocyte distribution wid th standard deviationOrdered By: Lashay Tellez on 07-02-2024 Erythrocyte distribution width (RBC) [Ratio] 42.9 fl 35.1-43.9 [facility] HIV - WCHon 07-02-2024 HIV Non-Reactive Normal Nonreactive [facility] Comment on above: Order Comment: Reaso n for Exam: Performed By: #### L 7000.1800, L509.8000, L3890.6005, L100.0100, BTS, L7400.0353, L900.0098, L501.9985, L509.4005, L3890.6300, L3890.6100 ####[facility] [address] [place], [place], [id number] HIV 1 and HIV-2 antibody ass ay with HIV-1 p24 antigen detectionOrdered By: Lashay Tellez on 07-02-2024 HIV 1+2 Ab+HIV1 p24 Ag IA Ql Non-Reactive Nonreactive [facility] Hematocrit Auto (Bld) [Volum e fraction]Ordered By: Lashay Tellez on 07-02-2024 Hematocrit (Bld) [Volume fraction] 44.3 % 37-47 [facility] Hemoglobin A1con 07-02-2024 HbA1c (Bld) [Mass fraction] 5.2 % Normal 3.8-5.6 [facility] Comment on above: Result Comment: Norm al < 5.7 % Prediabetic 5.7 - 6.4 % Diabetic >or= 6.5 % Please note range changes. Performed By: #### L 7000.1800, L509.8000, L3890.6005, L100.0100, BTS, L7400.0353, L900.0098, L501.9985, L509.4005, L3890.6300, L3890.6100 ####[facility] [address] [place], [place], [phone] Hemoglobin A1c percentageOrd ered By: Lashay Tellez on 07-02-2024 HbA1c (Bld) [Mass fraction] 5.2 % 3.8-5.6 [facility] Comment on above: Normal < 5.7 % Predi abetic 5.7 - 6.4 % Diabetic >or= 6.5 % Please note range changes. Hemoglobin measurementOrdere d By: Lashay Tellez on 07-02-2024 Hemoglobin (Bld) [Mass/Vol] 14.1 g/dL 12.0-15.0 [facility] Hepatitis B Surface Antigeno n 07-02-2024 HEP B Surf Ag Non-Reactive Normal Nonreactive [facility] Comment on above: Order Comment: Reaso n for Exam: Performed By: #### L 7000.1800, L509.8000, L3890.6005, L100.0100, BTS, L7400.0353, L900.0098, L501.9985, L509.4005, L3890.6300, L3890.6100 ####[facility] [address] [place], [place], [id number] Hepatitis C Antibodyon 07-02 Hepatitis C AB Non-Reactive Normal Nonreactive [facility] Comment on above: Order Comment: Reaso n for Exam: Result Comment: Non Reactive: < 0.8 Equivocal: >/= 0.8 to < 1.0 Reactive: >/= 1.0 The CDC requires that a reactive/equivocal HCV antibody result be sent out for confirmation. HCV Quant by PCR testing. Performed By: #### L 7000.1800, L509.8000, L3890.6005, L100.0100, BTS, L7400.0353, L900.0098, L501.9985, L509.4005, L3890.6300, L3890.6100 ####[facility] [address] [facility] [place], [place], [id number] Immature granulocytes/100 WB C Auto (Bld)Ordered By: Lashay Tellez on 07-02-2024 Immature granulocytes/100 WBC (Bld) 0.300 % 0.0-0.9 [facility] Comment on above: IG% - Immature Granu locytes (promyelocytes, myelocytes and metamyelocytes) > 1% indicates that a LEFT SHIFT is Present. L509.8000on 07-02-2024 Syphilis Abs Non-Reactive Normal [facility] Comment on above: Order Comment: Reaso n for Exam: Performed By: #### L 7000.1800, L509.8000, L3890.6005, L100.0100, BTS, L7400.0353, L900.0098, L501.9985, L509.4005, L3890.6300, L3890.6100 ####[facility] [address] [place], [address] Laboratory - CytologyOrdered By: Lashay Tellez on 07-02-2024 Correctional Counselor/Case Manager Cyto stain Nom (Cvx/Vag) [ID] Comment . [facility] Comment on above: Escobar Cassidy, Dennis otechnologist (ASCP) Laboratory - Miscellaneous t estsOrdered By: Lashay Tellez on 07-02-2024 Service comment (Unsp spec) [Interp] . . [facility] MCV (mean corpuscular volume ) determinationOrdered By: Lashay Tellez on 07-02-2024 MCV (RBC) [Entitic vol] 90.0 fL 81-99 [facility] Mean corpuscular hemoglobin (MCH) determinationOrdered By: Lashay Tellez on 07-02-2024 MCH (RBC) [Entitic mass] 28.7 pg 27.0-32.0 [facility] Mean corpuscular hemoglobin concentration (MCHC) determinationOrdered By: Lashay Tellez on 07-02-2024 MCHC (RBC) [Mass/Vol] 31.8 g/dL Low 32-36 [facility] Mean platelet volume determi nationOrdered By: Lashay Tellez on 07-02-2024 Platelet mean volume (Bld) [Entitic vol] 8.8 fL 6.2-12.0 [facility] Monocyte percentageOrdered B y: Lashay Tellez on 07-02-2024 Monocytes/100 WBC (Bld) 5.6 % 0-10 [facility] NATERAon 07-02-2024 NATURA SEE SCANNED REPORT Normal [facility] Comment on above: Performed By: #### L 7000.1800, L509.8000, L3890.6005, L100.0100, BTS, L7400.0353, L900.0098, L501.9985, L509.4005, L3890.6300, L3890.6100 #### [facility] [address] [place], [address] Neisseria gonorrhoeae nuclei c acid detection by amplified probe techniqueOrdered By: Lashay Tellez on 07-02-2024 N. gonorrhoeae DNA JOSE+probe Ql (Unsp spec) Negative Negative [facility] Comment on above: Performed at: =[address] [place] [id number] Director: Em Ramirez MD, Phone: [phone] Neutrophil percentageOrdered By: Lashay Tellez on 07-02-2024 Neutrophils/100 WBC (Bld) 76.2 % High 47-70 [facility] No Panel InformationOrdered By: Lashay Tellez on 07-02-2024 Pap Smear QC Review Comment . [facility] Comment on above: Ivanna Roa Cytot echnologist (ASCP) Pap Smear Specimen Adequacy Comment . [facility] Comment on above: Satisfactory for jessica luation. No endocervical component is identified.An endocervical component is not commonly seen in the patient. Nucleated red blood cell per centageOrdered By: Lashay Tellez on 07-02-2024 Nucleated RBC/100 WBC (Bld) [Ratio] 0 % 0-5 [facility] Ballroom Dancer Office Visit Reporton 07-02-2024 Ballroom Dancer Office Visit Report [facility] [address], [address] [place] [address] OFFICE VISIT Date of Service: 07/02/24 MR#: [id number] Acct: [id number] Name: CYDNEY BROWN Rep #: [id number] : 2000 Provider: Dr. 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 Date Name GA/Weeks Outcome Route Bth Weight Gen Labor Lgth Anesthesia Del Locatn Provider FOB 12/09/22 Ines 41 live - full term 7lbs 6oz Female 12 hours epi dural Andie Roberts Delivery Date: 12/09/22 Last Updated [...] 6 day (more content not included)... Normal [facility] Platelet countOrdered By: Darrell Tellez on 07-02-2024 Platelets (Bld) [#/Vol] 428 10*3/uL 150-450 [facility] RBC Auto (Bld) [#/Vol]Ordere d By: Lashay Tellez on 07-02-2024 RBC (Bld) [#/Vol] 4.92 10*6/uL 4.2-5.4 [facility] Rubella IgGon 07-02-2024 Rubella IgG Reactive Normal Nonreactive [facility] Comment on above: Order Comment: Reaso n for Exam: Result Comment: Anti body Results Interpretation of Immune Status Non Reactive Presumed Non-Immune Equivocal Equivocal Reactive Presumed Immune Performed By: #### L 7000.1800, L509.8000, L3890.6005, L100.0100, BTS, L7400.0353, L900.0098, L501.9985, L509.4005, L3890.6300, L3890.6100 ####[facility] [address] [place], [address] Serum Treponema species anti body detectionOrdered By: Lashay Tellez on 07-02-2024 Treponema sp Ab Ql (S) Non-Reactive [facility] Type AND Screenon 07-02-2024 Ab SCREEN GEL Negative Normal [facility] Comment on above: Order Comment: PN Performed By: #### L 7000.1800, L509.8000, L3890.6005, L100.0100, BTS, L7400.0353, L900.0098, L501.9985, L509.4005, L3890.6300, L3890.6100 ####[facility] [address] [place], [address] Urine cultureOrdered By: Elysia Tellez on 07-02-2024 Bacteria identified Cx Nom (U) Culture exhibits no growth. [facility] White blood cell (WBC) count Ordered By: Lashay Tellez on 07-02-2024 WBC (Bld) [#/Vol] 9.9 10*3/uL 4.4-11.0 [facility] Ballroom Dancer Office Visit Reporton 05-21-2024 Ballroom Dancer Office Visit Report [facility] [address], [address] [place] [address] OFFICE VISIT Date of Service: 05/21/24 MR#: [id number] Acct: [id number] Name: CYDNEY BROWN [place] Rep #: [id number] : 2000 Provider: NOEMÍ oakley Age/Sex: 24/F [place] [facility] [place]: Signed Intake Vital Signs 08/25/23 14:52 05/21/24 11:39 Height 5 ft 6 in 5 ft 6 in Weight: 187 lb 2 oz BMI 30.2 BP 110/74 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 Tab Required: No Is patient in pain?: No [...] Social History household members: spouse current occupation: [employer] Smoking Status: Never smoker alcohol intake: never substance use type: does not use seatbelt use: always do you feel safe at home: Yes additional 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 history: - 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 Reflex testing is not indicated. No laboratory evidence of infection with B. burgdorferi (Lyme disease). Negative results may occur in patients recently infected (less than or equal to 14 days) with B. burgdorferi. If recent infection is suspected, repeat testing on a new sample collected in 7 to 14 days is recommended. Performed At: [facility] [address] [id number] Dian Reveles PhD Ph:[phone] Performed By: #### 1 80867, GFR, TSHR, ANEU, CMP, CBC, ADIFF ####[address] [address] .Auto Diffon 12-08-2023 Basophil, Absolute 0.0 10 3/mcL Normal 0.0-0.2 [facility] ([place]) Comment on above: Performed By: #### 1 18895, GFR, TSHR, ANEU, CMP, CBC, ADIFF #### [address] [address] Basophils/100 WBC (Bld) 0.3 % Normal 0.0-2.5 A [facility] ([place] Comment on above: Performed By: #### 1 44056, GFR, TSHR, ANEU, CMP, CBC, ADIFF #### [address] [address] Eosinophil, Absolute 0.0 10 3/mcL [facility] 0[facility]0-0.4 [facility] [place] Comment on above: Performed By: #### 1 53209, GFR, TSHR, ANEU, CMP, CBC, ADIFF #### [address] [address] Eosinophils/100 WBC (Bld) 0.7 % Normal 0.0-7.0 [facility] ([place] Comment on above: Performed By: #### 1 52200, GFR, TSHR, ANEU, CMP, CBC, ADIFF #### [address] [address] Lymphocyte, Absolute 1.7 10 3/mcL Normal 0.8-3.9 [facility] [place] Comment on above: Performed By: #### 1 65376, GFR, TSHR, ANEU, CMP, CBC, ADIFF #### [address] [address] Lymphocytes/100 WBC (Bld) 26.7 % Normal 10.0-50.0 [facility] ([place] Comment on above: Performed By: #### 1 95464, GFR, TSHR, ANEU, CMP, CBC, ADIFF #### [address] [address] Monocyte, Absolute 0.5 10 3/mcL Normal 0.2-1.0 [facility] ([place] Comment on above: Performed By: #### 1 69942, GFR, TSHR, ANEU, CMP, CBC, ADIFF #### [address] [address] Monocytes/100 WBC (Bld) 7.4 % Normal 1.7-13.0 [facility] ([place]) Comment on above: Performed By: #### 1 44412, GFR, TSHR, ANEU, CMP, CBC, ADIFF #### [address] [address] Neutrophils/100 WBC (Bld) 64.9 % Normal 37.0-80.0 [facility] ([place] Comment on above: Performed By: #### 1 06831, GFR, TSHR, ANEU, CMP, CBC, ADIFF #### [address] [address] .GFRon 12-08-2023 GFR 109 ml/min/1.73sqm Normal [facility] ([place] Comment on above: Result Comment: GFR Population [...] mL/min/1.73 square meters Performed By: #### 1 70014, GFR, TSHR, ANEU, CMP, CBC, ADIFF #### [address] [address] GFR Non- 90 ml/min/1.73sqm Normal [facility] ([place]) Comment on above: Result Comment: GFR Population [...] mL/min/1.73 square meters Performed By: #### 1 31222, GFR, TSHR, ANEU, CMP, CBC, ADIFF #### [address] [place], [place] [address] .NEUABSon 12-08-2023 Neutrophil, Absolute 4.2 10 3/mcL Normal 2.9-6.2 [facility] [place] Comment on above: Performed By: #### 1 75544, GFR, TSHR, ANEU, CMP, CBC, ADIFF #### [place] [address] CBCon 12-08-2023 Erythrocyte distribution width (RBC) [Ratio] 13.6 % Normal 11.5-14.5 [facility] ([place] Comment on above: Performed By: #### 1 97735, GFR, TSHR, ANEU, CMP, CBC, ADIFF #### [place] [address] Hematocrit (Bld) [Volume fraction] 46.1 % Normal 37.0-47.0 [facility] ([place] Comment on above: Performed By: #### 1 53337, GFR, TSHR, ANEU, CMP, CBC, ADIFF #### [place] [address] Hgb 15.4 G/dL Normal 12.0-16.0 [facility] ([place] Comment on above: Performed By: #### 1 77389, GFR, TSHR, ANEU, CMP, CBC, ADIFF #### [place] [address] MCH (RBC) [Entitic mass] 29.8 pg Normal 27.0-31.2 [facility] ([place] Comment on above: Performed By: #### 1 01047, GFR, TSHR, ANEU, CMP, CBC, ADIFF #### [place] [address] MCHC 33.5 G/dL Normal 33.0-37.0 [facility] ([place] Comment on above: Performed By: #### 1 30094, GFR, TSHR, ANEU, CMP, CBC, ADIFF #### [place] [address] MCV (RBC) [Entitic vol] 89.0 fL Normal 80.0-94.0 A [facility] ([place] Comment on above: Performed By: #### 1 92144, GFR, TSHR, ANEU, CMP, CBC, ADIFF #### [address] [address] Platelet 380 10 3/mcL Normal 130-400 [facility] ([place] Comment on above: Performed By: #### 1 92085, GFR, TSHR, ANEU, CMP, CBC, ADIFF #### [address] [address] Platelet mean volume (Bld) [Entitic vol] 7.3 fL Low 7.4-10.4 [facility] ([place] Comment on above: Performed By: #### 1 65982, GFR, TSHR, ANEU, CMP, CBC, ADIFF #### [address] [address] RBC 5.18 10 6/mcL Normal 4.20-5.40 [facility] ([place] Comment on above: Performed By: #### 1 28143, GFR, TSHR, ANEU, CMP, CBC, ADIFF #### [address] [address] WBC 6.5 10 3/mcL Normal 4.6-10.8 [facility] ([place] Comment on above: Performed By: #### 1 64402, GFR, TSHR, ANEU, CMP, CBC, ADIFF #### [address] [address] CMPon 12-08-2023 Albumin Level 3.9 G/dL Normal 3.5-5.0 [facility] ([place] Comment on above: Performed By: #### 1 92066, GFR, TSHR, ANEU, CMP, CBC, ADIFF #### [address] [address] Albumin/Globulin [Mass ratio] 1.2 {ratio} Normal 1.1-2.5 [facility] ([place] Comment on above: Performed By: #### 1 96004, GFR, TSHR, ANEU, CMP, CBC, ADIFF #### [address] [address] ALP [Catalytic activity/Vol] 102 U/L Normal 40-135 [facility] ([place] Comment on above: Performed By: #### 1 61202, GFR, TSHR, ANEU, CMP, CBC, ADIFF #### [address] [address] ALT [Catalytic activity/Vol] 28 U/L Normal 14-59 [facility] ([place] Comment on above: Performed By: #### 1 39326, GFR, TSHR, ANEU, CMP, CBC, ADIFF #### [address] [address] AST [Catalytic activity/Vol] 15 U/L Normal 10-40 [facility] ([place] Comment on above: Performed By: #### 1 23582, GFR, TSHR, ANEU, CMP, CBC, ADIFF #### [address] [address] Bili Total 0.4 mg/dL Normal 0.2-1.0 [facility] ([place] Comment on above: Result Comment: Use of this assay is not recommended for patients undergoing treatment with eltrombopag due to the potential for falsely elevated results. Performed By: #### 1 14755, GFR, TSHR, ANEU, CMP, CBC, ADIFF #### [address] [address] BUN/Creatinine Ratio 20 ratio Normal 7-27 [facility] ([place] Comment on above: Performed By: #### 1 87888, GFR, TSHR, ANEU, CMP, CBC, ADIFF #### [address] [address] Calcium [Mass/Vol] 9.0 mg/dL Normal 8.4-10.2 [facility] ([place] Comment on above: Performed By: #### 1 28766, GFR, TSHR, ANEU, CMP, CBC, ADIFF #### [address] [address] Chloride [Moles/Vol] 104 mmol/L Normal 98-107 [facility] ([place] Comment on above: Performed By: #### 1 69872, GFR, TSHR, ANEU, CMP, CBC, ADIFF #### [address] [address] CO2 [Moles/Vol] 28 mmol/L Normal 22-29 [facility] ([place] Comment on above: Performed By: #### 1 82747, GFR, TSHR, ANEU, CMP, CBC, ADIFF #### [address] [address] Creatinine [Mass/Vol] 0.80 mg/dL Normal 0.55-1.02 [facility] ([place]) Comment on above: Performed By: #### 1 96330, GFR, TSHR, ANEU, CMP, CBC, ADIFF #### [address] [address] Electrolyte Balance 8.0 mEq/L Normal 4.0-15.0 [facility] ([place] Comment on above: Performed By: #### 1 03204, GFR, TSHR, ANEU, CMP, CBC, ADIFF #### [address] [address] Globulin 3.3 G/dL Normal [facility] ([place] Comment on above: Performed By: #### 1 46403, GFR, TSHR, ANEU, CMP, CBC, ADIFF #### [address] [address] Glucose [Mass/Vol] 85 mg/dL Normal 70-105 [facility] ([place] Comment on above: Performed By: #### 1 68368, GFR, TSHR, ANEU, CMP, CBC, ADIFF #### [address] [address] Potassium [Moles/Vol] 4.4 mmol/L Normal 3.5-5.1 [facility] ([place] Comment on above: Performed By: #### 1 05180, GFR, TSHR, ANEU, CMP, CBC, ADIFF #### [address] [address] Sodium [Moles/Vol] 140 mmol/L Normal 136-145 [facility] ([place] Comment on above: Performed By: #### 1 25166, GFR, TSHR, ANEU, CMP, CBC, ADIFF #### [address] [place], [place] [address] Total Protein 7.2 G/dL Normal 6.4-8.2 [facility] ([place] Comment on above: Performed By: #### 1 32032, GFR, TSHR, ANEU, CMP, CBC, ADIFF #### [address] [address] Urea nitrogen [Mass/Vol] 16 mg/dL Normal 7-18 [facility] ([place] Comment on above: Performed By: #### 1 70866, GFR, TSHR, ANEU, CMP, CBC, ADIFF #### [address] [address] TSHRon 12-08-2023 TSH Qn 0.91 m[IU]/L Normal 0.36-3.74 [facility] ([place] Comment on above: Performed By: #### 1 33149, GFR, TSHR, ANEU, CMP, CBC, ADIFF #### [address] [address] [address] ABDOMEN/PELVIS W/CONTRAST on 10-04-2023 CT ABDOMEN/PELVIS [...] 10/04/2023 1:27:17 PM Ordering Provider: JENNIFFER Naranjo [facility] ([place]) HCG QUALITATIVE URINEon 09-11 Beta HCG ( test) Ql (U) Negative Normal Negative [facility] Comment on above: Order Comment: If no t on record less than 7 days and indicated. For female patients less than 55 years old and no history of hysterectomy. Result Comment: Plea note: Very dilute urine specimens, as indicated by a low specific gravity, may not contain outside medical sales representative levels of hCG. If is still suspected, a first morning urine specimen should be collected 48 hours later and tested. ORDER COMMENTS: is the most common reason for HCG in urine, although choriocarcinoma, hydatidiform mole, and certain nontrophoblastic malignancies also result in detectable urinary HCG levels. Sensitivity = 20mIU/mL. Performed By: #### L [id number] #### Gang Bore Operator: THEODORE BRITTON ([id number]) [facility] ([facility]) [address] [place] [address] Laboratory - Chemistry and C hemistry - challengeOrdered By: Rula Michael on 09-29-2023 Beta HCG ( test) Ql Negative Negative [facility] Comment on above: Please note: Very di lute urine specimens, as indicated by a low specific gravity, may not contain outside medical sales representative levels of hCG. If is still suspected, a first morning urine specimen should be collected 48 hours later and tested. Beta HCG ( test) Ql (U) is the most common reason for HCG in urine, although choriocarcinoma, hydatidiform mole, and certain nontrophoblastic malignancies also result in detectable urinary HCG levels. Sensitivity = 20mIU/mL. [facility] No Panel InformationOrdered By: Rula Michael on 09-29-2023 [facility] Nursing Noteon 09-29-2023 Nursing Note Pt and family verbalized understanding of recovery instructions, pt verbalized a readiness to be discharged home. Pt discharged home via wheelchair accompanied by RN/volunteer. Pt has had all their belongings returned to them at discharge Normal [facility] Nursing Note Patient is transported to same day surgery for discharge and is brought to bedside. She is alert and has no complaints. Discharge instructions reviewed with pt and and she states she is ready to go home. Iv discontinued and report is given to [facility] Nursing Note Pt received from OR via cart, spont. Resp. With MECHANICAL STRIPER in attendance. Placed on monitor. Monitor alarms on in PACU [facility] Op Noteon 09-29-2023 Op Note OPERATIVE NOTE [...] patient tolerated the closed reduction without incident. [facility] Serum or plasma choriogonado tropin detectionOrdered By: Malathi Magdaleno on 09-27-2023 HCG ( test) Ql < 1 mIU/mL <4 [facility] Comment on above: hCG levels with Gest ational AgeGestational Age hCG mIU/mL (IU/L)0.2 - 1 week 5 - 501-2 weeks 50 - 5002-3 weeks 100 - 26915-9 weeks 500 - 749414-4 weeks 1000 - 838485-3 weeks 80313 - 100,0006-8 weeks 8[address]77 - 200,0002-3 months [address] - 100,000 PREPROCINSon 09-23-2023 PREPROCINS Medication List [...] your scheduled surgery time. Please bring your [facility] Surgical folder and medication list with you day of surgery. We encourage you to write down any questions you may have for the surgeon, anesthesiologist, or other members of the surgical team and bring it with you the day of surgery. Please bring photo ID and insurance information. [facility] [facility] Final Surgical Pathology Rep [facility] 02-08-2023 Final Surgical Pathology Report . Pathology Reports Accession: Collected Date/Time: Received Date/Time: Pathologist: [id number] 02/04/2023 07:35 EDT 02/07/2023 08:27 EDT HOANG [...] Electronically Signed by Pathology Report verified by [facility] HOANG CARRASCO Sign out Date: 02/08/2023 12:07 Performing Lab: [facility], [facility] [address] [place] [address] Pathology Dept Disclaimer If ancillary studies were utilized, the following Laboratory Developed Test (LDT) disclaimer will apply: Under CLIA requirements, [facility]ology Laboratory is qualified to perform high complexity testing. For all ancillary stains, positive and negative controls stain appropriately. Performance characteristics of immunohistochemical and chromogenic in-situ hybridization tests have been determined by [facility] Pathology Laboratory. These tests are used for clinical purposes, They should not be regarded as investigational or for research. Normal [facility] ([place] US INTRAOPERATIVEon 02-05-20 US INTRAOPERATIVE ORIGINAL HISTORY: Retained products of conception COMPARISON: No IMPRESSION: Intraoperative ultrasound provided to the OBGYN service. Interpreted by: Cale Khanna MD Preliminary Report By: Cale Khanna MD Electronically signed By Cale Khanna MD Dictated Date: 02/04/2023 9:49:55 AM Prelim Date: 02/04/2023 9:50:31 AM Sign Date: 02/04/2023 9:50:31 AM Ordering Provider: MELISA ULLOA Normal [facility] ([place]) .Auto Diffon 02-02-2023 Basophil, Absolute 0.0 10 3/mcL Normal 0.0-0.2 [facility] ([place]) Comment on above: Performed By: #### A CHRISTAL, ADIFF, GFR, CMP, CBC ####[address] [address] Basophils/100 WBC (Bld) 0.5 % Normal 0.0-2.5 A [facility] ([place]) Comment on above: Performed By: #### A CHRISTAL, ADIFF, GFR, CMP, CBC ####[address] [address] Eosinophil, Absolute 0.0 10 3/mcL Normal 0.0-0.4 [facility] ([place] Comment on above: Performed By: #### A CHRISTAL, ADIFF, GFR, CMP, CBC ####[address] [address] Eosinophils/100 WBC (Bld) 0.7 % Normal 0.0-7.0 [facility] ([place] Comment on above: Performed By: #### A CHRISTAL, ADIFF, GFR, CMP, CBC ####[address] [address] Lymphocyte, Absolute 1.7 10 3/mcL Normal 0.8-3.9 [facility] [place] Comment on above: Performed By: #### A CHRISTAL, ADIFF, GFR, CMP, CBC ####[address] [address] Lymphocytes/100 WBC (Bld) 25.2 % Normal 10.0-50.0 [facility] ([place] Comment on above: Performed By: #### A CHRISTAL, ADIFF, GFR, CMP, CBC ####[address] [address] Monocyte, Absolute 0.5 10 3/mcL Normal 0.2-1.0 [facility] ([place] Comment on above: Performed By: #### A CHRISTAL, ADIFF, GFR, CMP, CBC ####[address] [address] Monocytes/100 WBC (Bld) 7.1 % Normal 1.7-13.0 [facility] ([place]) Comment on above: Performed By: #### A CHRISTAL, ADIFF, GFR, CMP, CBC ####[address] [address] Neutrophils/100 WBC (Bld) 66.5 % Normal 37.0-80.0 [facility] ([place]) Comment on above: Performed By: #### A CHRISTAL, ADIFF, GFR, CMP, CBC ####[address] [address] .GFRon 02-02-2023 GFR 100 ml/min/1.73sqm Normal [facility] ([place]) Comment on above: Result Comment: GFR Population [...] #### A CHRISTAL, ADIFF, GFR, CMP, CBC ####[place] [address] GFR Non- 82 ml/min/1.73sqm Normal [facility] ([place]) Comment on above: Result Comment: GFR Population [...] #### A CHRISTAL, ADIFF, GFR, CMP, CBC ####[place] [address] .NEUABSon 02-02-2023 Neutrophil, Absolute 4.4 10 3/mcL Normal 2.9-6.2 [facility] [place] Comment on above: Performed By: #### A CHRISTAL, ADIFF, GFR, CMP, CBC ####[place] [address] CBCon 02-02-2023 Erythrocyte distribution width (RBC) [Ratio] 14.3 % Normal 11.5-14.5 [facility] ([place] Comment on above: Performed By: #### A CHRISTAL, ADIFF, GFR, CMP, CBC ####[place] [address] Hematocrit (Bld) [Volume fraction] 44.1 % Normal 37.0-47.0 [facility] ([place] Comment on above: Performed By: #### A CHRISTAL, ADIFF, GFR, CMP, CBC ####[place] [address] Hgb 14.6 G/dL Normal 12.0-16.0 [facility] ([place] Comment on above: Performed By: #### A CHRISTAL, ADIFF, GFR, CMP, CBC ####[place] [address] MCH (RBC) [Entitic mass] 28.9 pg Normal 27.0-31.2 [facility] ([place] Comment on above: Performed By: #### A CHRISTAL, ADIFF, GFR, CMP, CBC ####[place] [address] MCHC 33.1 G/dL Normal 33.0-37.0 [facility] ([place] Comment on above: Performed By: #### A CHRISTAL, ADIFF, GFR, CMP, CBC ####[place] [address] MCV (RBC) [Entitic vol] 87.4 fL Normal 80.0-94.0 [facility] ([place]) Comment on above: Performed By: #### A CHRISTAL, ADIFF, GFR, CMP, CBC ####[place] [address] Platelet 364 10 3/mcL Normal 130-400 [facility] ([place] Comment on above: Performed By: #### A CHRISTAL, ADIFF, GFR, CMP, CBC ####[place] [address] Platelet mean volume (Bld) [Entitic vol] 7.1 fL Low 7.4-10.4 [facility] ([place] Comment on above: Performed By: #### A CHRISTAL, ADIFF, GFR, CMP, CBC ####[address] [address] RBC 5.04 10 6/mcL Normal 4.20-5.40 [facility] ([place] Comment on above: Performed By: #### A CHRISTAL, ADIFF, GFR, CMP, CBC ####[place] [address] WBC 6.6 10 3/mcL Normal 4.6-10.8 [facility] ([place] Comment on above: Performed By: #### A CHRISTAL, ADIFF, GFR, CMP, CBC ####[place] [address] CMPon 02-02-2023 Albumin Level 3.8 G/dL Normal 3.5-5.0 [facility] ([place] Comment on above: Performed By: #### A CHRISTAL, ADIFF, GFR, CMP, CBC ####[place] [address] Albumin/Globulin [Mass ratio] 1.1 {ratio} Normal 1.1-2.5 [facility] ([place] Comment on above: Performed By: #### A CHRISTAL, ADIFF, GFR, CMP, CBC ####[place] [address] ALP [Catalytic activity/Vol] 117 U/L Normal 40-135 [facility] ([place] Comment on above: Performed By: #### A CHRISTAL, ADIFF, GFR, CMP, CBC ####[place] [address] ALT [Catalytic activity/Vol] 29 U/L Normal 14-59 [facility] ([place] Comment on above: Performed By: #### A CHRISTAL, ADIFF, GFR, CMP, CBC ####[place] [address] AST [Catalytic activity/Vol] 26 U/L Normal 10-40 [facility] ([place] Comment on above: Performed By: #### A CHRISTAL, ADIFF, GFR, CMP, CBC ####[address] [address] Bili Total 0.4 mg/dL Normal 0.2-1.0 [facility] ([place]) Comment on above: Result Comment: Use of this assay is not recommended for patients undergoing treatment with eltrombopag due to the potential for falsely elevated results. Performed By: #### A CHRISTAL, ADIFF, GFR, CMP, CBC ####[place] [address] BUN/Creatinine Ratio 16 ratio Normal 7-27 [facility] ([place] Comment on above: Performed By: #### A CHRISTAL, ADIFF, GFR, CMP, CBC ####[place] [address] Calcium [Mass/Vol] 8.7 mg/dL Normal 8.4-10.2 [facility] ([place]) Comment on above: Performed By: #### A CHRISTAL, ADIFF, GFR, CMP, CBC ####[place] [address] Chloride [Moles/Vol] 107 mmol/L Normal 98-107 [facility] ([place] Comment on above: Performed By: #### A CHRISTAL, ADIFF, GFR, CMP, CBC ####[place] [address] CO2 [Moles/Vol] 28 mmol/L Normal 22-29 [facility] ([place] Comment on above: Performed By: #### A CHRISTAL, ADIFF, GFR, CMP, CBC ####[place] [address] Creatinine [Mass/Vol] 0.87 mg/dL Normal 0.55-1.02 [facility] ([place]) Comment on above: Performed By: #### A CHRISTAL, ADIFF, GFR, CMP, CBC ####[place] [address] Electrolyte Balance 8.0 mEq/L Normal 4.0-15.0 [facility] ([place]) Comment on above: Performed By: #### A CHRISTAL, ADIFF, GFR, CMP, CBC ####[place] [address] Globulin 3.4 G/dL Normal [facility] ([place] Comment on above: Performed By: #### A CHRISTAL, ADIFF, GFR, CMP, CBC ####[address] [address] Glucose [Mass/Vol] 82 mg/dL Normal 70-105 [facility] ([place]) Comment on above: Performed By: #### A CHRISTAL, ADIFF, GFR, CMP, CBC ####[address] [address] Potassium [Moles/Vol] 4.4 mmol/L Normal 3.5-5.1 [facility] ([place]) Comment on above: Performed By: #### A CHRISTAL, ADIFF, GFR, CMP, CBC ####[place] [address] Sodium [Moles/Vol] 143 mmol/L Normal 136-145 [facility] ([place] Comment on above: Performed By: #### A CHRISTAL, ADIFF, GFR, CMP, CBC ####[address] [address] Total Protein 7.2 G/dL Normal 6.4-8.2 [facility] ([place]) Comment on above: Performed By: #### A CHRISTAL, ADIFF, GFR, CMP, CBC ####[address] [address] Urea nitrogen [Mass/Vol] 14 mg/dL Normal 7-18 [facility] ([place] Comment on above: Performed By: #### A CHRISTAL, ADIFF, GFR, CMP, CBC ####[address] [address] LABORATORYOrdered By: SYSTEM SYSTEM on 02-02-2023 Albumin [...] 02/02/2023 2:33:37 PM Ordering Provider: JAXSON SIMMONS [facility] ([place]) LABORATORYOrdered By: SYSTEM SYSTEM on 12-10-2022 Hematocrit [...] 4.6 - 10.8 10^3/mcL AO Workflow SS Usubw-3-Brzpjrpsizduf.p lacental Ql (Vag fld) Negative (12/08/22 3:55 AM) Invalid Interpretation Code Negative AO Rapid Testing SS LABORATORYOrdered By: Daniel Gentile on 12-08-2022 Reagin Ab RPR Ql (S) Non-Reactive (12/08/22 11:22 PM) Invalid Interpretation Code Non-Reactive AH Man Viro/Sero SS LABORATORYOrdered By: Frandy Yanez on 12-08-2022 ABO and Rh group Nom (Bld) O positive (12/08/22 10:42 PM) [facility] Work Phone: Group B Strep Date Performed [id number] [facility] Work Phone: Group B Strep, External Negative (12/08/22 10:42 PM) [facility] Work Phone: Hepatitis B Date Performed [id number] [facility] Work Phone: Hepatitis B, External Negative (12/08/22 10:42 PM) [facility] Work Phone: RPR, External Nonreactive (12/08/22 10:42 PM) [facility] Work Phone: Rubella, External Immune (12/08/22 10:42 PM) [facility] Work Phone: LABORATORYOrdered By: Getachew Tang on [...] Workflow SS LABORATORYOrdered By: SYSTEM SYSTEM on 04-04-2023 Glucose [Mass/Vol] 106 mg/dL Invalid Interpretation Code [...] (05/19/22 2:38 PM) Invalid Interpretation Code Non-Reactive ADM SS LABORATORYOrdered By: Baljeet Ramon on 05-19-2022 HCV Ab IA Ql Non-Reactive (05/19/22 2:38 PM) Invalid Interpretation Code Non-Reactive ADM SS HCV Ab IA Ql Nonreactive: Samples with a value < 0.80 are considered nonreactive (negative) for antibodies to HCV.A negative test result does not exclude the possibility of exposure to or infection with HCV. HCV antibodies may be undetectable in some stages of the infection and in some clinical conditions. Invalid Interpretation Code Chemistry S LABORATORYOrdered By: Stacie Guillory on [...] SS HAS SYMPTOMS RELATED TO CONDITION OF INTEREST:FIND:PT:^PATIE NT:ORD: Yes (06/11/21 3:50 PM) Invalid Interpretation Code AO Auto Urine SS Illness or injury onset date and time 20210609 Invalid Interpretation Code AO Auto Urine SS Patient was hospitalized because of this condition No (06/11/21 3:50 PM) Invalid Interpretation Code AO Auto Urine SS status Not (06/11/21 3:50 PM) Invalid Interpretation Code AO Auto Urine SS RESIDES IN A CONGREGATE CARE SETTING:FIND:PT:^PATIEN T:ORD: No (06/11/21 3:50 PM) Invalid [...] definite cause of disease. Laboratories within the [place] and its territories are required to [...] AO Auto Urine SS COVID PCR, SCREENING CONGREG ATEon 12-05-2019 CORONAVIRUS 2019,PCR NOT DETECTED Normal Not Detected [facility] Comment on above: Result Comment: This assay [...] patient management decisions. Fact sheet for providers: https://www.fda.gov/media/968311/download Fact sheet for patients: https://www.fda.gov/media/215477/download This test has received FDA Emergency Use Authorization (EUA) and has been verified by [facility] ([facility]). This test is only authorized for the duration of time that circumstances exist to justify the authorization of the emergency use of in vitro diagnostic tests for the detection of SARS-CoV-2 virus and/or diagnosis of COVID-19 infection under section 564(b)(1) of the Act, 21 U.S.C. 360bbb-3(b)(1), unless the authorization is terminated or revoked sooner. [facility] ([facility]) is certified under CLIA-88 as qualified to perform high complexity testing. This tests analytical performance characteristics have been determined by [facility]. Testing is performed at [facility] is located at [address] [place] [address] (CLIA License #[id number], CAP #[id number]). Performed By: #### C VCLA #### [facility] [address] [place] [address] COVID PCR, SCREENING CONGREG ATEon 12-04-2019 Lab Specimen Source Nasal, Nasopharyngeal Normal [facility] Comment on above: Performed By: #### C VCLA #### [facility] [address] [place] [address] CR Spine Lumbosacral 2 or 3 Viewson 07-21-2019 CR Spine Lumbosacral 2 or 3 Views Patient Name: CYDNEY RAMÍREZ Diagnostic Radiology Exam Date/Time 07/21/2019 19:54:42 EST Exam CR Spine Lumbosacral 2 or 3 Views [facility] Accession Number [id number] CPT4 Codes 47512 () Reason For Exam back pain Report [...] Transcribed Date and Time: 07/21/2019 8:11 Normal [facility] CR Spine Thoracic Minimum 4 Viewson 07-21-2019 CR Spine Thoracic Minimum 4 Views Patient Name: CYDNEY RAMÍREZ Diagnostic Radiology Exam Date/Time 07/21/2019 19:54:42 EST Exam CR Spine Thoracic Minimum 4 Views Ordering Physician MD COLEY VIJAY Accession Number [id number] CPT4 Codes 96103 () Reason For Exam injury Report THORACIC [...] Transcribed Date and Time: 07/21/2019 8:12 Normal [facility] XR LUMBAR SPINE (2-3 VIEWS)o n 07-21-2019 Patient Name: CYDNEY RAMÍREZ ---Diagnostic Radiology--- Exam Date/Time 07/21/2019 19:54:42 EST Exam CR Spine Lumbosacral 2 or 3 Views Ordering Physician MD COLEY VIJAY Accession Number [id number] CPT4 Codes 49664 () Reason For Exam back pain Report [...] NICHOLAS Transcribed Date and Time: 07/21/2019 8:11 [facility] From [facility] - 07/21/2019 8:11 PM EST Patient Name: CYDNEY RAMÍREZ ---Diagnostic Radiology--- Exam Date/Time 07/21/2019 19:54:42 EST Exam CR Spine Lumbosacral 2 or 3 Views Ordering Physician MD COLEY VIJAY Accession Number [id number] CPT4 Codes 72147 () Reason For Exam back pain Report [...] NICHOLAS Transcribed Date and Time: 07/21/2019 8:11 [facility] Work Phone: XR THORACIC SPINE (MIN 4 VIE WS)on 07-21-2019 Patient Name: CYDNEY RAMÍREZ ---Diagnostic Radiology--- Exam Date/Time 07/21/2019 19:54:42 EST Exam CR Spine Thoracic Minimum 4 Views Ordering Physician MD COLEY VIJAY Accession Number [id number] CPT4 Codes 96166 () Reason For Exam injury Report THORACIC [...] Phone: [facility], [facility] Incoming Radiology Results From [facility] - 07/21/2019 8:12 PM EST Patient Name: CYDNEY RAMÍREZ ---Diagnostic Radiology--- Exam Date/Time 07/21/2019 19:54:42 EST Exam CR Spine Thoracic Minimum 4 Views Ordering Physician MD BRIJESH, [facility] Accession Number [id number] CPT4 Codes 24545 () Reason For Exam injury Report THORACIC [...] Time Vital Sign Value Performing Clinician Facility 01-28-2025 10:31-0400 Body height 167.64 cm [facility] 01-28-2025 10:31-0400 Body mass index (BMI) [Ratio] 34.8 kg/m2 Jenniffer Perea PERSONNEL ADVISER-C Work Phone: [facility] 01-28-2025 10:31-0400 Body weight 97.97 kg Jenniffernorman Perea PERSONNEL ADVISER-C Work Phone: [facility] 01-28-2025 10:31-0400 Diastolic blood pressure 65 mm[Hg] Jenniffer Perea PERSONNEL ADVISER-C Work Phone: [facility] 01-28-2025 10:31-0400 Systolic blood pressure 118 mm[Hg] Jenniffer Perea PERSONNEL ADVISER-C Work Phone: [facility] 01-21-2025 14:02-0400 Body height 167.64 cm Jenniffer Perea PERSONNEL ADVISER-C Work Phone: [facility] 01-21-2025 13:59-0400 Body mass index (BMI) [Ratio] 34.5 kg/m2 Jenniffer Perea PERSONNEL ADVISER-C Work Phone: [facility] 01-21-2025 13:59-0400 Body weight 97.06 kg Jenniffer Lorson PERSONNEL ADVISER-C Work Phone: [facility] 01-21-2025 13:59-0400 Diastolic blood pressure 81 mm[Hg] Jenniffer Warnerson PERSONNEL ADVISER-C Work Phone: [facility] 01-21-2025 13:59-0400 Systolic blood pressure 116 mm[Hg] Jenniffer Perea PERSONNEL ADVISER-C Work Phone: [facility] 01-15-2025 14:26-0400 Body height 167.64 cm Jenniffer Perea PERSONNEL ADVISER-C Work Phone: [facility] 01-15-2025 14:26-0400 Body mass index (BMI) [Ratio] 34.4 kg/m2 Jenniffer Perea PERSONNEL ADVISER-C Work Phone: [facility] 01-15-2025 14:26-0400 Body weight 96.84 kg Jenniffer Perea PERSONNEL ADVISER-C Work Phone: [facility] 01-15-2025 14:26-0400 Diastolic blood pressure 76 mm[Hg] Jenniffer Perea PERSONNEL ADVISER-C Work Phone: [facility] 01-15-2025 14:26-0400 Systolic blood pressure 121 mm[Hg] Jenniffernorman Perea PERSONNEL ADVISER-C Work Phone: [facility] 01-07-2025 11:31-0400 Body height 167.64 cm Jenniffer Perea PERSONNEL ADVISER-C Work Phone: [facility] 01-07-2025 11:31-0400 Body mass index (BMI) [Ratio] 34.7 kg/m2 Jenniffer Perea PERSONNEL ADVISER-C Work Phone: [facility] 01-07-2025 11:31-0400 Body weight 97.57 kg Jenniffer Perea PERSONNEL ADVISER-C Work Phone: [facility] 01-07-2025 11:31-0400 Diastolic blood pressure 78 mm[Hg] Jenniffer Perea PERSONNEL ADVISER-C Work Phone: [facility] 01-07-2025 11:31-0400 Systolic blood pressure 119 mm[Hg] Jenniffer Perea PERSONNEL ADVISER-C Work Phone: [facility] 12-31-2024 09:41-0400 Body height 167.64 cm Jenniffer Perea PERSONNEL ADVISER-C Work Phone: [facility] 12-31-2024 09:41-0400 Body mass index (BMI) [Ratio] 34.4 kg/m2 Jenniffer Perea PERSONNEL ADVISER-C Work Phone: [facility] 12-31-2024 09:41-0400 Body weight 96.67 kg Jenniffer Perea PERSONNEL ADVISER-C Work Phone: [facility] 12-31-2024 09:41-0400 Diastolic blood pressure 68 mm[Hg] Jenniffer Perea PERSONNEL ADVISER-C Work Phone: [facility] 12-31-2024 09:41-0400 Systolic blood pressure 99 mm[Hg] Jenniffer Perea PERSONNEL ADVISER-C Work Phone: [facility] 12-25-2024 14:09-0400 Body temperature 97.9 [degF] Jenniffer Perea PERSONNEL ADVISER-C Work Phone: [facility] 12-25-2024 14:09-0400 Respiratory rate 17 /min Jenniffer Perea PERSONNEL ADVISER-C Work Phone: [facility] 12-25-2024 14:09-0400 SaO2% (BldA) [Mass fraction] 97 % Jenniffer Perea PERSONNEL ADVISER-C Work Phone: [facility] 12-25-2024 14:08-0400 Diastolic blood pressure 76 mm[Hg] Jenniffer Perea PERSONNEL ADVISER-C Work Phone: [facility] 12-25-2024 14:08-0400 Heart rate 107 /min Jenniffer Perea PERSONNEL ADVISER-C Work Phone: [facility] 12-25-2024 14:08-0400 Systolic blood pressure 121 mm[Hg] Jenniffer Perea PERSONNEL ADVISER-C Work Phone: [facility] 12-25-2024 13:53-0400 Body height 167.64 cm Jenniffer Perea PERSONNEL ADVISER-C Work Phone: [facility] 12-25-2024 13:53-0400 Body mass index (BMI) [Ratio] 34.3 kg/m2 Jenniffer Perea PERSONNEL ADVISER-C Work Phone: [facility] 12-25-2024 13:53-0400 Body weight 96.61 kg Jenniffer Perea PERSONNEL ADVISER-C Work Phone: [facility] 12-17-2024 09:39-0400 Body height 167.64 cm Jenniffer Perea PERSONNEL ADVISER-C Work Phone: [facility] 12-17-2024 09:32-0400 Body mass index (BMI) [Ratio] 34.5 kg/m2 Jenniffer Perea PERSONNEL ADVISER-C Work Phone: [facility] 12-17-2024 09:32-0400 Body weight 97.18 kg Jenniffer Perea PERSONNEL ADVISER-C Work Phone: [facility] 12-17-2024 09:32-0400 Diastolic blood pressure 80 mm[Hg] Jenniffer Perea PERSONNEL ADVISER-C Work Phone: [facility] 12-17-2024 09:32-0400 Systolic blood pressure 104 mm[Hg] Jenniffer Perea PERSONNEL ADVISER-C Work Phone: [facility] 12-13-2024 14:10-0400 Heart rate 101 /min Jenniffer Perea PERSONNEL ADVISER-C Work Phone: [facility] 12-13-2024 14:10-0400 SaO2% (BldA) [Mass fraction] 94 % Jenniffer Preea PERSONNEL ADVISER-C Work Phone: [facility] 12-13-2024 14:08-0400 Diastolic blood pressure 67 mm[Hg] Jenniffer Perea PERSONNEL ADVISER-C Work Phone: [facility] 12-13-2024 14:08-0400 Systolic blood pressure 117 mm[Hg] Jenniffer Perea PERSONNEL ADVISER-C Work Phone: [facility] 12-03-2024 09:11-0400 Body height 167.64 cm Jenniffer Perea PERSONNEL ADVISER-C Work Phone: [facility] 12-03-2024 09:10-0400 Body mass index (BMI) [Ratio] 34.7 kg/m2 Jenniffer Perea PERSONNEL ADVISER-C Work Phone: [facility] 12-03-2024 09:10-0400 Body weight 97.52 kg Jenniffer Perea PERSONNEL ADVISER-C Work Phone: [facility] 12-03-2024 09:10-0400 Diastolic blood pressure 86 mm[Hg] Jenniffer Perea PERSONNEL ADVISER-C Work Phone: [facility] 12-03-2024 09:10-0400 Systolic blood pressure 127 mm[Hg] Jenniffer Perea PERSONNEL ADVISER-C Work Phone: [facility] 11-19-2024 08:30-0400 Body height 167.64 cm Jenniffer Perea PERSONNEL ADVISER-C Work Phone: [facility] 11-19-2024 08:30-0400 Body mass index (BMI) [Ratio] 34.6 kg/m2 Jenniffer Perea PERSONNEL ADVISER-C Work Phone: [facility] 11-19-2024 08:30-0400 Body weight 97.23 kg Jenniffer Perea PERSONNEL ADVISER-C Work Phone: [facility] 11-19-2024 08:30-0400 Diastolic blood pressure 64 mm[Hg] Jenniffer Perea PERSONNEL ADVISER-C Work Phone: [facility] 11-19-2024 08:30-0400 Systolic blood pressure 102 mm[Hg] Jenniffer Perea PERSONNEL ADVISER-C Work Phone: [facility] 11-06-2024 09:54-0400 Body height 167.64 cm Jenniffer Perea PERSONNEL ADVISER-C Work Phone: [facility] 11-06-2024 09:54-0400 Body mass index (BMI) [Ratio] 34.5 kg/m2 Jenniffer Perea PERSONNEL ADVISER-C Work Phone: [facility] 11-06-2024 09:54-0400 Body weight 97.12 kg Jenniffer Perea PERSONNEL ADVISER-C Work Phone: [facility] 11-06-2024 09:54-0400 Diastolic blood pressure 51 mm[Hg] Jenniffer Perea PERSONNEL ADVISER-C Work Phone: [facility] 11-06-2024 09:54-0400 Systolic blood pressure 103 mm[Hg] Jenniffer Perea PERSONNEL ADVISER-C Work Phone: [facility] 10-29-2024 00:08-0400 Respiratory rate 20 /min Jenniffer Perea PERSONNEL ADVISER-C Work Phone: [facility] 10-28-2024 23:58-0400 Body temperature 98.7 [degF] Jenniffer Perea PERSONNEL ADVISER-C Work Phone: [facility] 10-28-2024 23:58-0400 Diastolic blood pressure 62 mm[Hg] Jenniffer Perea PERSONNEL ADVISER-C Work Phone: [facility] 10-28-2024 23:58-0400 Heart rate 95 /min Jenniffer Perea PERSONNEL ADVISER-C Work Phone: [facility] 10-28-2024 23:58-0400 SaO2% (BldA) [Mass fraction] 96 % Jenniffer Perea PERSONNEL ADVISER-C Work Phone: [facility] 10-28-2024 23:58-0400 Systolic blood pressure 118 mm[Hg] Jennfifer Perea PERSONNEL ADVISER-C Work Phone: [facility] 10-28-2024 23:52-0400 Body height 167.64 cm Jenniffer Perea PERSONNEL ADVISER-C Work Phone: [facility] 10-28-2024 23:52-0400 Body mass index (BMI) [Ratio] 34.4 kg/m2 Jenniffer Perea PERSONNEL ADVISER-C Work Phone: [facility] 10-28-2024 23:52-0400 Body weight 96.79 kg Jenniffer Perea PERSONNEL ADVISER-C Work Phone: [facility] 10-22-2024 12:58-0400 Body height 167.64 cm Jenniffer Perea PERSONNEL ADVISER-C Work Phone: [facility] 10-22-2024 12:58-0400 Body mass index (BMI) [Ratio] 33.7 kg/m2 Jenniffer Perea PERSONNEL ADVISER-C Work Phone: [facility] [facility]24 12:58-0400 Body weight 94.85 kg Jenniffer Perea PERSONNEL ADVISER-C Work Phone: [facility] 10-22-2024 12:58-0400 Diastolic blood pressure 66 mm[Hg] Jenniffer Perea PERSONNEL ADVISER-C Work Phone: [facility] 10-22-2024 12:58-0400 Systolic blood pressure 98 mm[Hg] Jenniffer Perea PERSONNEL ADVISER-C Work Phone: [facility] 09-24-2024 09:00-0400 Body mass index (BMI) [Ratio] 32.6 kg/m2 Jenniffer Perea PERSONNEL ADVISER-C Work Phone: [facility] 09-24-2024 09:00-0400 Body weight 91.79 kg Jenniffernorman Perea PERSONNEL ADVISER-C Work Phone: [facility] 09-24-2024 09:00-0400 Diastolic blood pressure 63 mm[Hg] Jenniffernorman Perea PERSONNEL ADVISER-C Work Phone: [facility] 09-24-2024 09:00-0400 Systolic blood pressure 100 mm[Hg] Jenniffer Perea PERSONNEL ADVISER-C Work Phone: [facility] 08-27-2024 14:38-0400 Body mass index (BMI) [Ratio] 32.4 kg/m2 Jenniffer Perea PERSONNEL ADVISER-C Work Phone: [facility] 08-27-2024 14:38-0400 Body weight 91.17 kg Jenniffer Lorson PERSONNEL ADVISER-C Work Phone: [facility] 08-27-2024 14:38-0400 Diastolic blood pressure 77 mm[Hg] Jenniffer Perea PERSONNEL ADVISER-C Work Phone: [facility] 08-27-2024 14:38-0400 Systolic blood pressure 115 mm[Hg] Jenniffer Perea PERSONNEL ADVISER-C Work Phone: [facility] 07-30-2024 13:15-0500 Body mass index (BMI) [Ratio] 31 kg/m2 Jenniffer Perea PERSONNEL ADVISER-C Work Phone: [facility] 07-30-2024 13:15-0500 Body weight 87.2 kg Jenniffer Perea PERSONNEL ADVISER-C Work Phone: [facility] 07-30-2024 13:15-0500 Diastolic blood pressure 77 mm[Hg] Jenniffer Perea PERSONNEL ADVISER-C Work Phone: [facility] 07-30-2024 13:15-0500 Systolic blood pressure 124 mm[Hg] Jenniffer Perea PERSONNEL ADVISER-C Work Phone: [facility] 07-21-2024 21:03-0500 Body temperature 96.1 [degF] Jenniffer Perea PERSONNEL ADVISER-C Work Phone: [facility] 07-21-2024 21:03-0500 Diastolic blood pressure 67 mm[Hg] Jenniffer Perea PERSONNEL ADVISER-C Work Phone: [facility] 07-21-2024 21:03-0500 Heart rate 108 /min Jenniffer Perea PERSONNEL ADVISER-C Work Phone: [facility] 07-21-2024 21:03-0500 Respiratory rate 16 /min Jenniffer Perea PERSONNEL ADVISER-C Work Phone: [facility] 07-21-2024 21:03-0500 SaO2% (BldA) [Mass fraction] 100 % Jenniffer Perea PERSONNEL ADVISER-C Work Phone: [facility] 07-21-2024 21:03-0500 Systolic blood pressure 106 mm[Hg] Jenniffer Perea PERSONNEL ADVISER-C Work Phone: [facility] 07-21-2024 18:34-0500 Body mass index (BMI) [Ratio] 31.6 kg/m2 Jenniffer Perea PERSONNEL ADVISER-C Work Phone: [facility] 07-21-2024 18:34-0500 Body weight 88.99 kg Jenniffer Perea PERSONNEL ADVISER-C Work Phone: [facility] 07-02-2024 10:17-0500 Body mass index (BMI) [Ratio] 30.4 kg/m2 Jenniffer Perea PERSONNEL ADVISER-C Work Phone: [facility] 07-02-2024 10:17-0500 Body weight 85.72 kg Jenniffer Perea PERSONNEL ADVISER-C Work Phone: [facility] 07-02-2024 10:17-0500 Diastolic blood pressure 76 mm[Hg] Jenniffer Perea PERSONNEL ADVISER-C Work Phone: [facility] 07-02-2024 10:17-0500 Systolic blood pressure 112 mm[Hg] Jenniffer DOWD Work Phone: [facility] 09-29-2023 11:06-0400 Body temperature 97.2 [degF] Radha Tyler [employer] Work Phone: [facility] [employer] 09-29-2023 11:06-0400 Diastolic blood pressure 73 mm[Hg] Radha Tyler [employer] Work Phone: [facility] 09-29-2023 11:06-0400 Heart rate 77 /min Radha Tyler DO Work Phone: [facility] 09-29-2023 11:06-0400 Respiratory rate 18 /min Radha Tyler [employer] Phone: [facility] 09-29-2023 11:06-0400 SaO2% (BldA) [Mass fraction] 100 % Radha Tyler DO Work Phone: [facility] [employer] 09-29-2023 11:06-0400 Systolic blood pressure 104 mm[Hg] Radha [employer] Phone: [facility] 09-29-2023 08:47-0400 Body height 167.6 cm Radha [employer] Phone: [facility] 09-29-2023 08:47-0400 Body mass index (BMI) [Ratio] 30.34 kg/m2 Radha [employer] Phone: [facility] 09-29-2023 08:47-0400 Body weight 85.28 kg Radha [employer] Phone: [facility] 08-25-2023 14:52-0400 Body height 167.64 cm NOEMÍ Perea NP Work Phone: [facility] 03-14-2023 15:03-0400 Body height 167.64 cm [facility] 03-14-2023 15:03-0400 Body temperature 96.5 [degF] [facility] 03-14-2023 15:03-0400 Diastolic blood pressure 67 mm[Hg] [facility] 03-14-2023 15:03-0400 Heart rate 83 /min [facility] 03-14-2023 15:03-0400 Respiratory rate 14 /min [facility] 03-14-2023 15:03-0400 SaO2% (BldA) [Mass fraction] 98 % [facility] 03-14-2023 15:03-0400 Systolic blood pressure 104 mm[Hg] [facility] 02-04-2023 09:04-0400 Diastolic Blood Pressure Non-Invasive 64 1 MELISA ULLOA MD [facility] 02-04-2023 09:04-0400 Heart rate 66 /min MELISA ULLOA MD [facility] 02-04-2023 09:04-0400 Respiratory rate 16 /min MELISA ULLOA MD [facility] 02-04-2023 09:04-0400 Systolic Blood Pressure Non-Invasive 101 1 MELISA ULLOA MD [facility] 02-04-2023 08:45-0400 Diastolic Blood Pressure Non-Invasive 75 1 MELISA ULLOA MD [facility] 02-04-2023 08:45-0400 Heart rate 65 /min MELISA ULLOA MD [facility] 02-04-2023 08:45-0400 Respiratory rate 14 /min MELISA ULLOA MD [facility] 02-04-2023 08:45-0400 Systolic Blood Pressure Non-Invasive 112 1 MELISA ULLOA MD [facility] 02-04-2023 08:30-0400 Diastolic Blood Pressure Non-Invasive 71 1 MELISA ULLOA MD [facility] 02-04-2023 08:30-0400 Heart rate 70 /min MELISA ULLOA MD [facility] 02-04-2023 08:30-0400 Respiratory rate 15 /min MELISA ULLOA MD [facility] 02-04-2023 08:30-0400 Systolic Blood Pressure Non-Invasive 114 1 MELISA ULLOA MD [facility] 02-04-2023 07:57-0400 Body temperature 96.44 [degF] MELISA ULLOA MD [facility] 02-04-2023 07:50-0400 Respiratory Rate - Anes 20 br/min MELISA ULLOA MD [facility] 02-04-2023 07:45-0400 Respiratory Rate - Anes 20 br/min MELISA ULLOA MD [facility] 02-04-2023 07:40-0400 Respiratory Rate - Anes 18 br/min MELISA ULLOA MD [facility] 02-04-2023 07:30-0400 temperature 96.8 [degF] MELISA ULLOA MD [facility] 02-04-2023 07:25-0400 temperature 96.8 [degF] MELISA ULLOA MD [facility] 02-04-2023 07:20-0400 temperature 96.8 [degF] MELISA ULLOA MD [facility] 02-04-2023 06:23-0400 Body weight 26.7 kg/m2 MELISA ULLOA MD [facility] 02-04-2023 06:06-0400 Body height 167.6 cm MELISA ULLOA MD [facility] 02-04-2023 06:06-0400 Body temperature 95.54 [degF] MELISA ULLOA MD [facility] 02-04-2023 06:06-0400 Body weight 75 kg MELISA ULLOA MD [facility] 02-04-2023 06:06-0400 Diastolic blood pressure 71 mm[Hg] MELISA ULLOA MD [facility] 02-04-2023 06:06-0400 Heart rate 81 /min MELISA ULLOA MD [facility] 02-04-2023 06:06-0400 Systolic blood pressure 106 mm[Hg] MELISA ULLOA MD [facility] 12-10-2022 08:47-0400 Body temperature 98.6 [degF] JAXSON BEITLER BRICK SETTER OPERATOR-CNM [facility] 12-10-2022 08:47-0400 Diastolic Blood Pressure Non-Invasive 78 1 JAXSON BEITLER BRICK SETTER OPERATOR-CNM [facility] 12-10-2022 08:47-0400 Heart rate 86 /min JAXSON BEITLER BRICK SETTER OPERATOR-CNM [facility] 12-10-2022 08:47-0400 Respiratory rate 16 /min JAXSON BEITLER BRICK SETTER OPERATOR-CNM [facility] 12-10-2022 08:47-0400 Systolic Blood Pressure Non-Invasive 124 1 JAXSON BEITLER BRICK SETTER OPERATOR-CNM [facility] 12-10-2022 00:08-0400 Body temperature 97.7 [degF] JAXSON BEITLER BRICK SETTER OPERATOR-CNM [facility] 12-10-2022 00:08-0400 Diastolic Blood Pressure Non-Invasive 78 1 JAXSON BEITLER BRICK SETTER OPERATOR-CNM [facility] 12-10-2022 00:08-0400 Heart rate 90 /min JAXSON BEITLER BRICK SETTER OPERATOR-CNM [facility] 12-10-2022 00:08-0400 Reason For Taking VItal Signs JAXSON BEITLER BRICK SETTER OPERATOR-CNM [facility] 12-10-2022 00:08-0400 Respiratory rate 18 /min JAXSON BEITLER BRICK SETTER OPERATOR-CNM [facility] 12-10-2022 00:08-0400 Systolic Blood Pressure Non-Invasive 125 1 JAXSON BEITLER BRICK SETTER OPERATOR-CNM [facility] 12-09-2022 15:45-0400 Body temperature 97.7 [degF] JAXSON BEITLER BRICK SETTER OPERATOR-CNM [facility] 12-09-2022 15:45-0400 Diastolic Blood Pressure Non-Invasive 75 1 JAXSON BEITLER BRICK SETTER OPERATOR-CNM [facility] 12-09-2022 15:45-0400 Heart rate 81 /min JAXSON BEITLER BRICK SETTER OPERATOR-CNM [facility] 12-09-2022 15:45-0400 Reason For Taking VItal Signs JAXSON BEITLER BRICK SETTER OPERATOR-CNM [facility] 12-09-2022 15:45-0400 Respiratory rate 16 /min JAXSON COPEITLER BRICK SETTER OPERATOR-CNM [facility] 12-09-2022 15:45-0400 Systolic Blood Pressure Non-Invasive 124 1 JAXSON BEITLER BRICK SETTER OPERATOR-CNM [facility] 12-08-2022 22:42-0400 Body height 167.6 cm JAXSON BEITLER BRICK SETTER OPERATOR-CNM [facility] 12-08-2022 22:42-0400 Body weight 82.5 kg JAXSON BEITLER BRICK SETTER OPERATOR-CNM [facility] 12-08-2022 22:42-0400 Body weight 29.37 kg/m2 JAXSON BEITLER BRICK SETTER OPERATOR-CNM [facility] 12-08-2022 22:30-0400 Body temperature 98.06 [degF] JAXSON BEITLER BRICK SETTER OPERATOR-CNM [facility] 12-08-2022 22:28-0400 Body height 167.6 cm JAXSON BEITLER BRICK SETTER OPERATOR-CNM [facility] 12-08-2022 22:28-0400 Body weight 82.5 kg JAXSON BEITLER BRICK SETTER OPERATOR-CNM [facility] 12-08-2022 22:28-0400 Body weight 29.37 kg/m2 JAXSON BEITLER BRICK SETTER OPERATOR-CNM [facility] 12-08-2022 03:43-0400 Body height 167.5 cm LILLI LEE MD [facility] 12-08-2022 03:43-0400 Body temperature 97.7 [degF] LILLI LEE MD [facility] 12-08-2022 03:43-0400 Body weight 82.7 kg LILLI LEE MD [facility] 12-08-2022 03:43-0400 Body weight 29.48 kg/m2 LILLI LEE MD [facility] 12-08-2022 03:43-0400 Diastolic Blood Pressure Non-Invasive 69 1 LILLI LEE MD [facility] 12-08-2022 03:43-0400 Heart rate 89 /min LILLI LEE MD [facility] 12-08-2022 03:43-0400 Reason For Taking VItal Signs LILLI LEE MD [facility] 12-08-2022 03:43-0400 Respiratory rate 18 /min LILLI LEE MD [facility] 12-08-2022 03:43-0400 Systolic Blood Pressure Non-Invasive 116 1 LILLI LEE MD [facility] 12-07-2022 03:17-0400 Body temperature 96.98 [degF] MELISA ULLOA MD [facility] 12-07-2022 03:17-0400 Diastolic Blood Pressure Non-Invasive 68 1 MELISA ULLOA MD [facility] 12-07-2022 03:17-0400 Respiratory rate 18 /min MELISA ULLOA MD [facility] 12-07-2022 03:17-0400 Systolic Blood Pressure Non-Invasive 116 1 MELISA ULLOA MD [facility] 12-07-2022 02:55-0400 Diastolic Blood Pressure Non-Invasive 76 1 MELISA ULLOA MD [facility] 12-07-2022 02:55-0400 Heart rate 82 /min MELISA ULLOA MD [facility] 12-07-2022 02:55-0400 Systolic Blood Pressure Non-Invasive 116 1 MELISA ULLOA MD [facility] 12-07-2022 02:37-0400 Body height 167.6 cm MELISA ULLOA MD [facility] 12-07-2022 02:37-0400 Body temperature 96.98 [degF] MELISA ULLOA MD [facility] 12-07-2022 02:37-0400 Body weight 83 kg MELISA ULLOA MD [facility] 12-07-2022 02:37-0400 Body weight 29.55 kg/m2 MELISA ULLOA MD [facility] 12-07-2022 02:37-0400 Diastolic Blood Pressure Non-Invasive 85 1 MELISA ULLOA MD [facility] 12-07-2022 02:37-0400 Heart rate 84 /min MELISA ULLOA MD [facility] 12-07-2022 02:37-0400 Reason For Taking VItal Signs MELISA LULOA MD [facility] 12-07-2022 02:37-0400 Respiratory rate 18 /min MELISA ULLOA MD [facility] 12-07-2022 02:37-0400 Systolic Blood Pressure Non-Invasive 142 1 MELISA ULLOA MD [facility] 07-11-2022 18:57-0500 Body temperature 98.96 [degF] KEVIN HARDIN MD [facility] 07-11-2022 18:57-0500 Diastolic Blood Pressure Non-Invasive 66 1 KEVIN HARDIN MD [facility] 07-11-2022 18:57-0500 Heart rate 99 /min KEVIN HARDIN MD [facility] 07-11-2022 18:57-0500 Systolic Blood Pressure Non-Invasive 113 1 KEVIN HARDIN MD [facility] 07-21-2019 19:17-0500 BMI (Body Mass Index) 21.63 [...] 07-21-2019 19:17-0500 Pulse Oximetry 100 % Quang HIRSCH Work Phone: 07-21-2019 19:17-0500 Respiratory Rate 18 /min Quang HIRSCH Work Phone: Encounters Encounter Date Encounter Type Care Provider Facility Start: 02-04-2025 ambulatory Sophia Ellison [facility] lity:[facility] Start: 01-28-2025 End: 01-28-2025 Patient encounter procedure Gonzalez Dunne CNM -[facility] Work Phone: Start: 01-28-2025 End: 01-28-2025 ambulatory Jenniffer Perea PERSONNEL ADVISER-C Work Phone: [facility] Start: 01-21-2025 End: 01-21-[address] Sophia Ellison MD -[facility] Work Phone: Start: 01-21-2025 End: 01-21-2025 ambulatory Jenniffer Perea PERSONNEL ADVISER-C Work Phone: [facility] Start: 01-21-2025 End: 01-21-2025 ambulatory Sophia Ellison Facility:[facility] Start: 01-15-2025 End: 01-15-[address] Lashay Fields DO -[facility] Work Phone: Start: 01-15-2025 End: 01-15-2025 ambulatory Jenniffer Perea PERSONNEL ADVISER-C Work Phone: [facility] Start: 01-07-2025 End: 01-07-2025 Patient encounter procedure Gonzalez Dunne CNM -[facility] Work Phone: Start: 01-07-2025 End: 01-07-2025 ambulatory Jenniffer Perea PERSONNEL ADVISER-C Work Phone: [facility] Start: 12-31-2024 End: 12-31-2024 ambulatory Jenniffer Perea PERSONNEL ADVISER-C Work Phone: -Laboratory Specimen Start: 12-31-2024 End: 12-31-2024 Patient encounter procedure Gonzalez Dunne CNM -Laboratory Specimen Work Phone: Start: 12-31-2024 End: 12-31-2024 Patient encounter procedure Gonzalez Dunne CNM -[facility] Work Phone: Start: 12-31-2024 End: 12-31-2024 ambulatory Jenniffer Perea PERSONNEL ADVISER-C Work Phone: -[facility] Start: 12-31-2024 End: 12-31-2024 ambulatory Gonzalez Dunne Facility:[facility] Start: 12-25-2024 ambulatory Lashay Mcdaniels cility:[facility] Start: 12-25-2024 Non-patient / Non-visit Dr. Lashay Fields DO -[facility] Start: 12-25-2024 End: 12-25-[address] [facility] Work Phone: Start: 12-25-2024 End: 12-25-2024 ambulatory Jenniffer Perea PERSONNEL ADVISER-C [facility] Phone[facility] Start: 12-17-2024 End: 12-17-2024 Patient encounter procedure Malathi Magdaleno PERSONNEL ADVISER-C -[facility] Work Phone: Start: 12-17-2024 End: 12-17-2024 ambulatory Jenniffer Perea PERSONNEL ADVISER-C Work Phone: -[facility] Start: 12-13-2024 Non-patient / Non-visit Dr. Sophia Ellison MD -[facility] Start: 12-13-2024 End: 12-13-2024 ambulatory Jenniffer Perea PERSONNEL ADVISER-C Work Phone: -[facility] Start: 12-13-2024 End: 12-13-[address] [facility] Work Phone: Start: 12-03-2024 End: 12-03-[address] Lashay Fields DO -[facility] Work Phone: Start: 12-03-2024 End: 12-03-2024 ambulatory Jenniffer Perea PERSONNEL ADVISER-C Work Phone: [facility] Work Phone: Start: 11-19-2024 End: 11-19-2024 Patient encounter procedure Malathi Magdaleno PERSONNEL ADVISER-C -[facility] Work Phone: Start: 11-19-2024 End: 11-19-2024 ambulatory Jenniffer Perea PERSONNEL ADVISER-C Work Phone: [facility] Work Phone: Start: 11-06-2024 End: 11-06-2024 Patient encounter procedure Gonzalez Dunne CNM -[facility] Work Phone: Start: 11-06-2024 End: 11-06-2024 ambulatory Jenniffer Perea PERSONNEL ADVISER-C Work Phone: [facility] Work Phone: Start: 10-29-2024 ambulatory Sophia Harris lity:[facility] Start: 10-29-2024 Non-patient / Non-visit Dr. Sophia Ellison MD -[facility] Start: 10-28-2024 End: 10-29-2024 ambulatory Jenniffer Perea PERSONNEL ADVISER-C Work Phone: [facility] Work Phone: Start: 10-28-2024 End: 10-29-[address] Sophia Ellison MD [facility] Work Phone: Start: 10-22-2024 End: 10-22-2024 ambulatory Jenniffer Perea PERSONNEL ADVISER-C Work Phone: [facility] Work Phone: Start: 10-22-2024 End: 10-22-2024 Patient encounter procedure Malathi Magdaleno PERSONNEL ADVISER-C -[facility] Work Phone: Start: 10-22-2024 End: 10-22-2024 ambulatory Jenniffer Perea PERSONNEL ADVISER Facility:[facility] Start: 09-24-2024 End: 09-24-[address] Sophia Ellison MD -[facility] Work Phone: Start: 09-24-2024 End: 09-24-2024 ambulatory Jenniffer Perea PERSONNEL ADVISER Facility:[facility] Start: 09-07-2024 End: 09-07-2024 ambulatory DEVAN D [facility] Start: 08-27-2024 End: 08-27-[address] Lashay Fields DO -[facility] Work Phone: Start: 08-27-2024 End: 08-27-2024 ambulatory Jenniffer Perea PERSONNEL ADVISER Facility:[facility] Start: 07-30-2024 End: 07-30-2024 Patient encounter procedure Gonzalez Dunne CNM -[facility] Work Phone: Start: 07-30-2024 End: 07-30-2024 ambulatory Jenniffer Perea PERSONNEL ADVISER Facility:[facility] Start: 07-21-2024 End: 07-21-2024 Emergency department patient visit Dr. Aashish Thomas MD -Emergency Department Work Phone: Start: 07-02-2024 End: 07-02-[address] Lashay Fields DO -[facility] Start: 07-02-2024 End: 07-02-[address] Lashay Fields DO -[facility] Work Phone: Start: 07-02-2024 End: 07-02-2024 ambulatory Lashay Fields Facility:[facility] Start: 07-02-2024 End: 07-02-2024 ambulatory Lashay Fields Facility:[facility] Start: 06-26-2024 Non-patient / Non-visit Rachel Peña RN -[facility] Work Phone: Start: 06-26-2024 ambulatory Rachel Peña Facility :[facility] Start: 05-21-2024 End: 05-21-2024 ambulatory Malathi Magdaleno NP Facility:[facility] Start: 12-08-2023 End: 12-08-2023 ambulatory JENNIFFER PEREA BRICK SETTER OPERATOR-EMPLOYEE'S REPRESENTATIVE Facility:B Start: 10-04-2023 End: 10-04-2023 ambulatory JENNIFFER PEREA BRICK SETTER OPERATOR-EMPLOYEE'S REPRESENTATIVE Facility:[facility] Start: 09-29-2023 End: 09-29-2023 ambulatory [facility] Start: 09-29-2023 End: 09-29-2023 Subsequent hospital visit by physician Radha Scott DO Work Phone: [facility] Start: 09-27-2023 End: 09-27-2023 ambulatory PERSONNEL ADVISER-C Jenniffer Perea PERSONNEL ADVISER Work Phone: [facility] Work Phone: Start: 09-27-2023 End: 09-27-2023 Patient encounter procedure PERSONNEL ADVISER-C Jenniffer Perea PERSONNEL ADVISER Work Phone: [facility]-Laboratory Work Phone: Start: 09-23-2023 End: 09-23-2023 ambulatory [facility] Start: 08-25-2023 End: 08-25-2023 Patient encounter procedure PERSONNEL ADVISER-C Jenniffer Perea PERSONNEL ADVISER Work Phone: [facility] Work Phone: Start: 08-08-2023 End: 08-08-2023 Patient encounter procedure PERSONNEL ADVISER-C Jenniffer Perea PERSONNEL ADVISER Work Phone: [facility] Work Phone: Start: 03-14-2023 End: 03-14-2023 Emergency department patient visit [facility]-Emergency Department Work Phone: Start: 02-04-2023 End: 02-04-2023 ambulatory JENNIFFER PEREA BRICK SETTER OPERATOR-EMPLOYEE'S REPRESENTATIVE Facility:[facility] Start: 02-04-2023 End: 02-04-2023 SAME DAY STAY MELISA ULLOA MD [facility] Start: 02-02-2023 End: 02-02-2023 ambulatory JENNIFFER PEREA BRICK SETTER OPERATOR-EMPLOYEE'S REPRESENTATIVE Facility:[facility] Start: 02-02-2023 End: 02-02-2023 Patient encounter procedure JAXSON SIMMONS BRICK SETTER OPERATOR-CNM [facility] Start: 02-02-2023 End: 02-02-2023 ambulatory JENNIFFER PEREA BRICK SETTER OPERATOR-EMPLOYEE'S REPRESENTATIVE Facility:[facility] Start: 02-02-2023 End: 02-02-2023 Patient encounter procedure JENNIFFER PEREA BRICK SETTER OPERATOR-EMPLOYEE'S REPRESENTATIVE [facility] Start: 12-08-2022 End: 12-10-2022 Evaluation and management of inpatient JAXSON SIMMONS BRICK SETTER OPERATOR-CNM [facility] Start: 12-08-2022 End: 12-08-2022 SAME DAY STAY LILLI LEE MD [facility] Start: 12-07-2022 End: 12-07-2022 SAME DAY STAY MELISA ULLOA MD [facility] Start: 11-10-2022 End: 11-10-2022 Patient encounter procedure LILLI LEE MD [facility] Start: 11-09-2022 End: 11-13-2022 Outreach Lab LILLI LEE MD [facility] Start: 09-14-2022 End: 09-14-2022 Patient encounter procedure MELISA ULLOA MD [facility] Start: 07-14-2022 End: 07-14-2022 Patient encounter procedure SAURABH PARSONS BRICK SETTER OPERATOR-EMPLOYEE'S REPRESENTATIVE [facility] Start: 07-11-2022 End: 07-11-2022 Emergency department patient visit KEVIN HARDIN MD [facility] Start: 05-19-2022 End: 05-23-2022 Outreach Lab SAURABH PARSONS BRICK SETTER OPERATOR-EMPLOYEE'S REPRESENTATIVE [facility] Start: 05-19-2022 End: 05-19-2022 Patient encounter procedure SAURABH PARSONS BRICK SETTER OPERATOR-EMPLOYEE'S REPRESENTATIVE [facility] Start: 12-16-2021 End: 12-16-2021 Patient encounter procedure LILLI LEE MD [facility] Start: 12-02-2021 End: 12-06-2021 Outreach Lab LILLI LEE MD [facility] Start: 06-11-2021 End: 06-11-2021 Patient encounter procedure JENNIFFER PEREA BRICK SETTER OPERATOR-EMPLOYEE'S REPRESENTATIVE [facility] Start: 07-21-2019 End: 07-21-2019 Emergency department patient visit Quangjeronimo Coley Work Phone: [facility] ED Comment on above: Strain of lumbar reg ion, initial encounter (Primary Dx) Procedures Date Procedure Procedure Detail Performing Clinician Start: 01-21-2025 Measurement of pH in vaginal fluid specimen using nitrazine yellow for detection of rupture of amniotic membrane Jenniffer Perea PERSONNEL ADVISER-C Work Phone: Comment on above: Amniotic fluid not p resent indicates No Rupture of FetalMembranes at time of specimen collection. Start: 12-31-2024 Beta-hemolytic Strep tococcus culture Jenniffer Perea PERSONNEL ADVISER-C Work Phone: Start: 12-25-2024 Measurement of pH in vaginal fluid specimen using nitrazine yellow for detection of rupture of amniotic membrane Jenniffer Perea PERSONNEL ADVISER-C Work Phone: Comment on above: Amniotic fluid not p resent indicates No Rupture of FetalMembranes at time of specimen collection. Start: 10-29-2024 Urine culture Jenniffer matthews PERSONNEL ADVISER-C Work Phone: Start: 10-28-2024 Urnls dip stick/tabl et reagent auto microscopy Jenniffer Perea PERSONNEL ADVISER-C Work Phone: Start: 10-22-2024 Serologic test for syphilis Jenniffer Perea PERSONNEL ADVISER-C Work Phone: Start: 07-21-2024 Estimated creatinine clearance Jenniffer Perea PERSONNEL ADVISER-C Work Phone: Start: 07-21-2024 Measurement of renal function Jenniffer Perea PERSONNEL ADVISER-C Work Phone: Comment on above: GFR Calc Start: 07-21-2024 Urnls dip stick/tabl et reagent auto microscopy Jenniffer Perea PERSONNEL ADVISER-C Work Phone: Start: 07-02-2024 Urine culture Jenniffer matthews PERSONNEL ADVISER-C Work Phone: Start: 07-02-2024 Procedure Jenniffer painting PERSONNEL ADVISER-C Work Phone: Start: 07-02-2024 Hepatitis B surface antigen measurement Jenniffer Perea PERSONNEL ADVISER-C Work Phone: Start: 07-02-2024 Hepatitis C antibody measurement Jenniffer Perae PERSONNEL ADVISER-C Work Phone: Comment on above: Non Reactive: < 0.8 Equivocal: >/= 0.8 to < 1.0 Reactive: >/= 1.0The CDC requires that a reactive/equivocal HCV antibody result be sent out for confirmation. HCV Quant by PCR testing. Start: 07-02-2024 Liquid based cervica l cytology screening Jenniffer Perea PERSONNEL ADVISER-C Work Phone: Comment on above: NEGATIVE FOR INTRAEP ITHELIAL LESION OR MALIGNANCY.THIS SPECIMEN WAS RESCREENED PART OF OUR CLINICAL LAB SPECIALIST PROGRAM. This liquid based Th inPrep(R) pap test was screened withthe use of an image guided system. The HPV DNA reflex c riteria were not met with this specimenresult therefore, no HPV testing was performed.Performed at: [address] [id number] Director: Em Ramirez MD, Phone: [phone] Start: 07-02-2024 Rubella IgG measurement Jenniffer Perea PERSONNEL ADVISER-C Work Phone: Comment on above: Antibody Results Int erpretation of Immune Status Non Reactive Presumed Non-Immune Equivocal Equivocal Reactive Presumed Immune Start: 09-29-2023 Urine test visual color cmprsn meths Inge Hillantel BRICK SETTER OPERATOR - MECHANICAL STRIPER Work Phone: Start: 02-04-2023 Dilation and curettage MELISA ULLOA MD Start: 07-21-2019 Radex spine lumbosac ral 2/3 views Quang Adusumilli Work Phone: Start: 07-21-2019 Radex spine thoracic minimum 4 views Quang Adusumilli Work Phone: Nasal cautery JENNIFFER PEREA BRICK SETTER OPERATOR-EMPLOYEE'S REPRESENTATIVE Structure of wisdom tooth (body structure) MELISA ULLOA MD Plan of Treatment Date Care Activity Detail Author Start: 2061 RSV Immunization aged 60 or older (1 - 1-dose 60+ series) RSV Immunization aged 60 or older (1 - 1-dose 60+ series) [facility] [employer] Start: 2051 Zoster Vaccines (1 of 2) Zoster Vaccines (1 of 2) [facility] Start: 10-11-2032 DTaP/Tdap/Td Vaccines (3 - Td or Tdap) DTaP/Tdap/Td Vaccines (3 - Td or Tdap) [facility] Start: 12-31-2024 Group B Streptococcus Culture Group B Streptococcus Culture [facility] Start: 12-31-2024 Streptococcus agalactiae [Presence] in Unspecified specimen by Organism specific culture [facility] Start: 12-25-2024 Nonstress test [facility] Start: 12-25-2024 Obstetric monitoring [facility] Start: 12-25-2024 Vital signs measurements [facility] Start: 12-25-2024 [facility] Start: 12-25-2024 Patient discharge [facility] Start: 12-13-2024 Nonstress test [facility] Start: 12-13-2024 Obstetric monitoring [facility] Start: 12-13-2024 [facility] Start: 12-13-2024 Vital signs measurements [facility] Start: 10-29-2024 Patient discharge [facility] Start: 10-28-2024 End: 10-29-2024 [facility] Start: 10-28-2024 Nonstress test [facility] Start: 10-28-2024 Obstetric monitoring [facility] Start: 10-28-2024 Vital signs measurements [facility] Start: 02-12-2024 Influenza vaccination Influenza Vaccine (Season Ended) [facility] Start: 09-29-2023 End: 09-29-2023 Control nasal hemorrhage anterior complex CONTROL NASAL HEMORRHAGE ANTERIOR COMPLEX Epistaxis 09/29/2023 9:34 AM EDT [facility] Operating Room Start: 02-11-2023 COVID-19 Vaccine ( season) COVID-19 Vaccine ( season) [facility] Start: 2022 Screening for malignant neoplasm of cervix Pap Smear [facility] Start: 2020 Hepatitis B Vaccines (1 of 3 - 19+ 3-dose series) Hepatitis B Vaccines (1 of 3 - 19+ 3-dose series) [facility] Start: 2019 Hepatitis C screening Hepatitis C Screening [facility] Start: 02-11-2019 Influenza vaccination Flu vaccine (#1) [facility] Work Phone: Start: 2016 HPV Vaccines (1 - 3-dose series) HPV Vaccines (1 - 3-dose series) [facility] Start: 2014 Varicella vaccination Varicella Vaccines (1 of 2 - 13+ 2-dose series) [facility] Start: 2013 Depression Screening Depression Screening [facility] Start: 2007 Pneumococcal Vaccine: Pediatrics (0 to 5 Years) and At-Risk Patients (6 to 64 Years) (1 of 2 - PCV) Pneumococcal Vaccine: Pediatrics (0 to 5 Years) and At-Risk Patients (6 to 64 Years) (1 of 2 - PCV) [facility] Start: 2002 MMR Vaccines (1 of 1 - Standard series) MMR Vaccines (1 of 1 - Standard series) [facility] Start: 2001 HIV screening HIV Screening [facility] Beta-hemolytic Streptococcus culture [facility] Patient Education [facility] Work Phone: Patient referral [facility] Work Phone: Streptococcus agalac tiae [Presence] in Unspecified specimen by Organism specific culture [facility] Urine culture [facility] Immunizations Immunization Date Immunization Notes Care Provider [facility] 11-06-2024 tetanus toxoid, redu taniya diphtheria toxoid, and acellular pertussis vaccine, adsorbed Jenniffer Perea PERSONNEL ADVISER-C Work Phone: [facility] 10-11-2022 tetanus toxoid, redu taniya diphtheria toxoid, and acellular pertussis vaccine, adsorbed; Translations: [Boostrix (Tdap)] LILLI LEE MD [facility] Comment on above: Early/Late Reason: E eduardo/Late Reason: Other : nurse unable to chart at time of injection Result Comment: [facility] [id number] 01-01-2014 meningococcal polysaccharide (groups A, C, Y and W-135) diphtheria toxoid conjugate vaccine (MCV4P) JENNIFFER PEREA BRICK SETTER OPERATOR-EMPLOYEE'S REPRESENTATIVE [facility] 01-01-2014 tetanus toxoid, redu taniya diphtheria toxoid, and acellular pertussis vaccine, adsorbed JENNIFFER PEREA BRICK SETTER OPERATOR-EMPLOYEE'S REPRESENTATIVE [facility] Payers Date Payer Category Payer Self-pay [id number] 2021 Unknown [id number] 2021 Unknown ANTHEM BLUE CROS S ANTHEM BLUE CROSS [id number] 2021-Present [address] [place] [address] Commercial [id number] 2001 Unknown [id number] 2.16840.1.600592.3.579.2.627 2001 Unknown [id number] 2.16.840.1.925254.3.579.2.627 2001 Unknown [id number] 2.16840.1.802947.3.579.2.627 2001 Unknown [id number] 2.16.840.1.138097.3.579.2.627 2001 Unknown [id number] 2.16.840.1.507230.3.579.2.627 2001 Unknown [id number] 2.16.840.1.898314.3.579.2.479 Unknown [facility] [id number] Unknown [id number] 2.16.840.1.431834.3.579.2.462 Unknown [id number] 2.16.840.1.160980.3.579.2.462 Unknown [id number] 2.16.840.1.689850.3.579.2.462 Unknown [id number] 2.16.840.1.053712.3.579.2.462 Unknown [id number] 2.16.840.1.817977.3.579.2.462 Unknown [id number] 2.16.840.1.048072.3.579.2.462 Unknown [id number] 2.16.840.1.589409.3.579.2.462 Unknown [id number] 2.16.840.1.291763.3.579.2.462 Unknown [id number] 2.16.840.1.852834.3.579.2.462 Unknown [id number] 2.16840.1.353543.3.579.2.462 Unknown [id number] 2.16.840.1.678527.3.579.2.462 Unknown [id number] 2.16.840.1.762871.3.579.2.462 Unknown [id number] 2.16.840.1.477003.3.579.2.462 Unknown [id number] 2.16.840.1.095226.3.579.2.462 Unknown [id number] 2.16.840.1.509635.3.579.2.462 Unknown [id number] 2.16.840.1.179370.3.579.2.462 Unknown [id number] 2.16.840.1.553623.3.579.2.462 Unknown [id number] 2.16.840.1.054791.3.579.2.462 Unknown [id number] 2.16.840.1.018921.3.579.2.462 Unknown [id number] 2.16.840.1.040899.3.579.2.462 Unknown [id number] 2.16.840.1.992654.3.579.2.462 Unknown [id number] 2.16.840.1.875183.3.579.2.462 Unknown [id number] 2.16.840.1.466226.3.579.2.462 Unknown [id number] 2.16.840.1.928682.3.579.2.462 Unknown [id number] 2.16.840.1.674865.3.579.2.462 Unknown [id number] 2.16.840.1.693431.3.579.2.462 Unknown [id number] 2.16.840.1.273145.3.579.2.462 Unknown [id number] 2.16.840.1.167065.3.579.2.462 Unknown [id number] 2.16.840.1.554376.3.579.2.462 Unknown [id number] 2.16.840.1.344093.3.579.2.462 Social History Date Type Detail Facility Start: 07-21-2019 End: 07-21-2024 Tobacco smoking status [facility] Never smoker [employer] Work Phone: Start: 07-21-2019 Alcohol intake Lifetime non-d maya (finding) [employer] Work Phone: Start: 07-21-2019 History SDOH Alcohol Frequency 1 [employer] Work Phone: Start: 2001 Sex Assigned At Not on file [facility] Work Phone: Sex Assigned At [facility] Start: 2001 Sex Assigned At Female [facility] Start: 09-23-2023 Tobacco use and exposure Smoke less tobacco non-user [facility] [employer] Start: 09-29-2023 Alcohol intake Ex-drinker (finding) [facility] [employer] Start: 09-29-2023 History of Social function [facility] Start: 09-29-2023 Humiliation, Afraid, Rape, and Kick questionnaire [HARK] [facility] Within the last year , have you been afraid of your partner or ex-partner? No [facility] Start: 08-08-2023 Tobacco smoking stat us NYIS Unknown if ever smoked [facility] Functional Status Date Assessment Result Facility 02-04-2023 Functional Status Activity Statu s ADL Up to bathroom [facility] 02-04-2023 Functional Status bilateral knee high rashel lied/on [facility] 02-04-2023 Functional Status Maintained [facility] 12-10-2022 Functional Status Safety level maintained [facility] 12-10-2022 Functional Status [facility] 12-10-2022 Functional Status Rooming in [facility] 12-09-2022 Functional Status [facility] 12-09-2022 Functional Status [facility] 12-09-2022 Functional Status [facility] 12-09-2022 Functional Status [facility] 12-08-2022 Functional Status Home independently [facility] 07-11-2022 Functional Status Independent [facility] 07-11-2022 Functional Status Standard Safet y ID band on, Call device within reach, Bed in low position, Wheels locked, Upper/Half-Length side-rails up, Phone within reach, personal items within reach, Safety level maintained [facility] Mental Status Date Assessment Result Facility 07-21-2024 Cognitive function Voice/Name [facility] Work Phone: 02-04-2023 Mental Status Orientation Oriented x 4 [facility] 02-04-2023 Mental Status [facility] 12-10-2022 Mental Status Oriented x 4 [facility] 12-09-2022 Mental Status [facility] 07-11-2022 Mental Status Orientation Oriented x 4 [facility] 07-11-2022 Mental Status [facility] Clinical Notes 07-11-2022 to 01-28-2025 Note Date & Type Note Facility 01-28-2025 Progress note [facility] 01-21-2025 Progress note [facility] 01-21-2025 Progress note Note Date/Time January 21, 2025 2:17pm [facility] [address], [address] [place] [address] OFFICE VISIT Date of Service: 01/21/25 MR#: [id number] Acct: [id number] Name: CYDNEY BROWN Rep #: [id number] : 2000 Provider: Dr. Osbaldo Ellison MD Age/Sex: 24/F [place] [facility] [place]: Signed Intake Vital Signs 12/03/24 09:11 01/15/25 14:26 01/21/25 13:59 01/21/25 14:02 Height 5 ft 6 in 5 ft 6 in 5 ft 6 in 5 ft 6 in Weight: 214 lb BMI 34.5 BP 116/81 H Intake Visit Reasons: 39 wk ob Hammerer Tab Required: No Is patient in pain?: No Allergies No Known Allergies Allergy (Verified 01/21/25 13:58) Medications ?Medication ?Instructions ?Recorded ?Confirmed ?Type albuterol sulfate 90 mcg/actuation 2 puff inhalation Q 6H PRN 08/08/23 01/21/25 History aerosol inhaler shortness of breath or wheez ing docosahexaenoic acid 200 mg 1 mg PO QHS 06/26/2401/21 History capsule ( DHA) lactobacillus combination no.4 3 3,000 mmu cells PO QD AY 06/26/24 01/21/25 History billion cell capsule (Probiotic) magnesium 200 mg tablet 350 mg PO QDAY 06/26/2401/11 History acetaminophen 500 mg capsule 1,000 mg PO Q6H PRN pain 10/29/24 01/21/25 History nystatin 100,000 unit/gram topical 1 applic topical BI D #30 grams 12/17/24 01/21/25 Rx powder melatonin 3 mg capsule 2 mg PO PRN 12/25/24 5 History Last Menstrual Period: 04/22/24 Zika: Zika [...] children number of children: 1 current occupation: [employer] current occupational exposures/hazards: No pets and animals: [...] 5-6 times per week duration: 30-45 minutes/day feliciano/samaritan: Buddhist seatbelt use: always do you feel safe at home: Yes additional social history: : 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 OB Visit JANNET Calculator Estimated Delivery Date Method Current WG Current Estimate 08/17/25 LMP (Certain) 39w 1d Expected Delivery Route/Plan Labor Preferences- CB/BF [...] Date -?-?-?-?-?-?-?-?-?-?-?-?- EGA Weight BP Urine Prot -?-?-?--?-?-?-?-?-?-?-?-?- Glucose FHR FuHt Pres Dilation -?-?-?-?-?-?-?-?-?--?-?-?- Effaced St Visit Note 07/02/24 -?-?-?-?-?-?-?-?-?-?-?-?- 10w 1d 189 lb (+0 oz) 112/76 -?-?-?-?-?-?-?-?-?-?-?-?- 176 -?-?-?-?-?-?-?-?-?-?-?-?- JV- CRL measures 10 weeks 6 days but still not off by more than 7 days. JANNET is per LMP 01/27/25. Desires nipt. was delivered in [facility] last . had retained placenta and D&C [...] 98/66 Negative -?-?-?-?-?-?-?-?-?-?-?-?- Negative 143 26 -?-?-?-?-?-?-?-?-?-?-?-?- -No VB. Ezra Porter. Bobby comes and goes under breasts, nystatin sent. [...] and recommended pepcid. chiropractor for hip pain 01/07/25 -?-?-?-?-?-?-?-?-?-?-?-?- 37w 1d 215 lb 2 oz (+26 lb 2 oz) 119/78 Negative -?-?-?-?-?-?-?-?-?-?-?-?- Negative 145 38 Cephalic 3 -?-?-?-?-?-?-?-?-?-?-?-?- 40 -3 KW- no vb/ lof. some regular contractions on and off. good fm 01/15/25 -?-?-?-?-?-?-?-?-?-?-?-?- 38w 2d 213 lb 8 oz (+24 lb 8 oz) 121/76 Negative -?-?-?-?-?-?-?-?-?-?-?-?- Negative 140 38 Cephalic 3 -?-?-?-?-?-?-?-?-?-?-?-?- 40 -3 ALYX ESCAMILLA is undergoing BCG immunotherapy for bladder cancer and chemotherapy and she wonders if safe to be around him. After researching it appears safe as long as no exposure to bodily fluids. wants to do accu puncture next week. 01/21/25 -?-?-?-?-?-?-?-?-?-?-?-?- 39w 1d 214 lb (+25 lb) 116/81 Negative -?-?-?-?-?-?-?-?-?-?-?-?- Negative 140 39 Cephalic 3 -?-?-?-?-?-?-?-?-?-?-?-?- 40 -2 SM- no vb quesitonable lof good fm n oreuglar ctx ACOG First Trimester First Trimester: Discussed Second [...] Office Urine Glucose Negative Last Edit by Malathi Ramos on 01/21/25 14:03 Office Urine Protein Negative Last Edit by Malathi Ramos on 01/21/25 14:03 Coding Level of Care Code OB Routine Diagnoses History of retained placenta Z87.59 Obesity affecting in second trimester, unspecified obesity type O99.212 Obesity type affecting : unspecified obesity Trimester: second trimester Supervision of high risk in third trimester O09.93 Trimester: third trimester 39 weeks gestation of Z3A.39 Weeks of gestation: 39 weeks Family history of spina bifida Z82.79 [...] : Status: Acute Qualifiers: Weeks of gestation: 39 weeks Qualified Code(s): Z3A.39 - 39 weeks gestation of Comment: GBS neg, NIPT low risk, carrier negative in first [...] Orders POC Urinalysis 2 Dip (Clinic) Today 01/21/25 1417 <Electronically signed by Sophia grossman MD> Date _ Sophia Ellison MD Cosigner Signature: Date (if applicable) CC: ~ [facility] Work Phone: 1(614) 939-233008-05-2025 Progress [facility] [address] [place] [address], [address] [place] [address] OFFICE VISIT Date of Service: 01/15/25 MR#: [id number] Acct: [id number] Name: CYDNEY BROWN Rep #: [id number] : 2000 Provider: Dr. Karen Fields DO Age/Sex: 24/F [place] [facility] [place]: Signed Intake Vital Signs 12/03/24 09:11 01/07/25 11:31 01/15/25 14:26 Height 5 ft 6 in 5 ft 6 in 5 ft 6 in Weight: 213 lb 8 oz BMI 34.4 BP 121/76 H Intake Visit Reasons: 38 wk ob Hammerer Tab Required: No Is patient in pain?: No Allergies No Known Allergies Allergy (Verified 01/15/25 14:25) Medications ?Medication ?Instructions ?Recorded ?Confirmed ?Type albuterol sulfate 90 mcg/actuation 2 puff inhalation Q 6H PRN 08/08/23 01/15/25 History aerosol inhaler shortness of breath or wheez ing docosahexaenoic acid 200 mg 1 mg PO QHS 06/26/2401/15 History capsule ( DHA) lactobacillus combination no.4 3 3,000 mmu cells PO QD AY 06/26/24 01/15/25 History billion cell capsule (Probiotic) magnesium 200 mg tablet 350 mg PO QDAY 06/26/24 08/11/04 History acetaminophen 500 mg capsule 1,000 mg PO Q6H PRN pain 10/29/24 01/15/25 History nystatin 100,000 unit/gram topical 1 applic topical BI D #30 grams 12/17/24 01/15/25 Rx powder melatonin 3 mg capsule 2 mg PO PRN 12/25/24 5 History Last Menstrual Period: 04/22/24 Zika: Zika [...] children number of children: 1 current occupation: [employer] current occupational exposures/hazards: No pets and animals: [...] 5-6 times per week duration: 30-45 minutes/day feliciano/samaritan: Buddhist seatbelt use: always do you feel safe at home: Yes additional social history: : 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 OB Visit JANNET Calculator Estimated Delivery Date Method Current WG Current Estimate 01/27/25 LMP (Certain) 38w 2d Expected Delivery Route/Plan Labor Preferences- CB/BF [...] current plan of care details and appropriate ordersplaced. Relevant counseling for the gestational age provided. Continue routine care and follow up unless otherwise noted in visit notes/problem list details Initial Weight: 189 lb Date -?-?--?-?-?-?-?-?-?-?-?-?- EGA Weight BP Urine Prot -?-?-?-?-?-?-?-?-?-?-?-?- Glucose FHR FuHt Pres Dilation -?-?-?-?-?-?-?-?-?-?-?-?- Effaced St Visit Note 07/02/24 -?-?-?-?-?-?-?-?-?-?-?-?- 10w 1d 189 lb (+0 oz) 112/76 -?-?-?-?-?-?-?-?-?-?-?-?- 176 -?-?-?-?-?-?-?-?-?-?-?-?- JV- CRL measures 10 weeks 6 days but still not off by more than 7 days. JANNET is per LMP 01/27/25. Desires nipt. was delivered in [facility] last . had retained placenta andD&C several weeks after delivery 07/30/24 -?-?-?-?-?-?-?-?-?-?-?-?- 14w [...] and recommended pepcid. chiropractor for hip pain 01/07/25 -?-?-?-?-?-?-?-?-?-?-?-?- 37w 1d 215 lb 2 oz (+26 lb 2 oz) 119/78 Negative -?-?-?-?-?-?-?-?-?-?-?-?- Negative 145 38 Cephalic 3 -?-?-?-?-?-?-?-?-?-?-?-?- 40 -3 KW- no vb/ lof. some regular contractions on and off. good fm 01/15/25 -?-?-?-?-?-?-?-?-?-?-?-?- 38w 2d 213 lb 8 oz (+24 lb 8 oz) 121/76 Negative -?-?-?-?-?-?-?-?-?-?-?-?- Negative 140 38 Cephalic 3 -?-?-?-?-?-?-?-?-?-?-?-?- 40 -3 ALYX ESCAMILLA is undergoing BCG immunotherapy for bladder cancer and chemotherapy and she wonders if safe to be around him. After researching it appears safe as long asno exposure to bodily fluids. wants to do accu puncture next week. ACOG First Trimester First Trimester: Discussed Second [...] Negative Last Edit by Cydney Wright on 01/15/25 15: 05 Office Urine Protein Negative Last Edit by Cydney Wright on 01/15/25 15: 05 Coding Level of Care Code OB Routine Diagnoses History of retained placenta Z87.59 Obesity affecting in second trimester, unspecified obesity type O99.212 Obesity type affecting : unspecified obesity Trimester: second trimester Supervision of high risk in third trimester O09.93 Trimester: third trimester 38 weeks gestation of Z3A.38 Weeks of gestation: 38 weeks Family history of spina bifida Z82.79 [...] : Status: Acute Qualifiers: Weeks of gestation: 38 weeks Qualified Code(s): Z3A.38 - 38 weeks gestation of Comment: GBS neg, NIPT low risk, carrier negative in first [...] Orders POC Urinalysis 2 Dip (Clinic) Today 01/15/25 1510 e Velde DO> Date _ Lashay Fields DO Cosigner Signature: Date (if applicable) CC: ~ [facility] [id number] Progress note Author Lashay Tellez [facility] Note Date/Time January 15, 2025 3:1 0pm [facility] [address] [place] [address], [address] [place] [address] OFFICE VISIT Date of Service: 01/15/25 MR#: [id number] Acct: [id number] Name: CYDNEY BROWN Rep #: [id number] : 2000 Provider: Dr. Karen Fields DO Age/Sex: 24/F [place] [facility] [place]: Signed Intake Vital Signs 12/03/24 09:11 01/07/25 11:31 01/15/25 14:26 Height 5 ft 6 in 5 ft 6 in 5 ft 6 in Weight: 213 lb 8 oz BMI 34.4 BP 121/76 H Intake Visit Reasons: 38 wk ob Hammerer Tab Required: No Is patient in pain?: No Allergies No Known Allergies Allergy (Verified 01/15/25 14:25) Medications ?Medication ?Instructions ?Recorded ?Confirmed ?Type albuterol sulfate 90 mcg/actuation 2 puff inhalation Q 6H PRN 08/08/23 01/15/25 History aerosol inhaler shortness of breath or wheez ing docosahexaenoic acid 200 mg 1 mg PO QHS 06/26/2401/15 History capsule ( DHA) lactobacillus combination no.4 3 3,000 mmu cells PO QD AY 06/26/24 01/15/25 History billion cell capsule (Probiotic) magnesium 200 mg tablet 350 mg PO QDAY 06/26/24 08/11/04 History acetaminophen 500 mg capsule 1,000 mg PO Q6H PRN pain 10/29/24 01/15/25 History nystatin 100,000 unit/gram topical 1 applic topical BI D #30 grams 12/17/24 01/15/25 Rx powder melatonin 3 mg capsule 2 mg PO PRN 12/25/24 5 History Last Menstrual Period: 04/22/24 Zika: Zika [...] children number of children: 1 current occupation: [employer] current occupational exposures/hazards: No pets and animals: [...] 5-6 times per week duration: 30-45 minutes/day feliciano/samaritan: Buddhist seatbelt use: always do you feel safe at home: Yes additional social history: : 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 Date Name GA/Weeks Outcome Route Bth Weight Infant Gen Labor Lgth Anesthesia Del Locatn Provider FOB 12/09/22 Ines 41 live - full term 7lbs 6oz Female 12 hours epidural Andie Sierra Meilsaeusebio Ulloa Fabrizio Delivery Date: 12/09/22 Last Updated by: Rachel Peña RN Retained placenta - bleed x8wk pp, D&C 8wk pp HPI 38 wk ob Details: CYDNEY BROWN is a 24 year old who presents for routine OB visit. OB Visit JANNET Calculator Estimated Delivery Date Method Current WG Current Estimate 01/27/25 LMP (Certain) 38w 2d Expected Delivery Route/Plan Labor Preferences- CB/BF [...] list details Initial Weight: 189 lb Date -?-?--?-?-?-?-?-?-?-?-?-?- EGA Weight BP Urine Prot -?-?-?-?-?-?-?-?-?-?-?-?- Glucose FHR FuHt Pres Dilation -?-?-?-?-?-?-?-?-?-?-?-?- Effaced St Visit Note 07/02/24 -?-?-?-?-?-?-?-?-?-?-?-?- 10w 1d 189 lb (+0 oz) 112/76 -?-?-?-?-?-?-?-?-?-?-?-?- 176 -?-?-?-?-?-?-?-?-?-?-?-?- JV- CRL measures 10 weeks 6 days but still not off by more than 7 days. JANNET is per LMP 01/27/25. Desires nipt. was delivered in [facility] last . had retained placenta and D&C [...] 98/66 Negative -?-?-?-?-?-?-?-?-?-?-?-?- Negative 143 26 -?-?-?-?-?-?-?-?-?-?-?-?- -No VB. Good F M. Rash comes and goes under [...] and recommended pepcid. chiropractor for hip pain 01/07/25 -?-?-?-?-?-?-?-?-?-?-?-?- 37w 1d 215 lb 2 oz (+26 lb 2 oz) 119/78 Negative -?-?-?-?-?-?-?-?-?-?-?-?- Negative 145 38 Cephalic 3 -?-?-?-?-?-?-?-?-?-?-?-?- 40 -3 KW- no vb/ lof. some regular contractions on and off. good fm 01/15/25 -?-?-?-?-?-?-?-?-?-?-?-?- 38w 2d 213 lb 8 oz (+24 lb 8 oz) 121/76 Negative -?-?-?-?-?-?-?-?-?-?-?-?- Negative 140 38 Cephalic 3 -?-?-?-?-?-?-?-?-?-?-?-?- 40 -3 ALYX ESCAMILLA is undergoing BCG immunotherapy for bladder cancer and chemotherapy and she wonders if safe to be around him. After researching it appears safe as long as no exposure to bodily fluids. wants to do accu puncture next week. ACOG First Trimester First Trimester: Discussed Second [...] Negative Last Edit by Cydney Wright on 01/15/25 15: 05 Office Urine Protein Negative Last Edit by Cydney Wright on 01/15/25 15: 05 Coding Level of Care Code OB Routine Diagnoses History of retained placenta Z87.59 Obesity affecting in second trimester, unspecified obesity type O99.212 Obesity type affecting : unspecified obesity Trimester: second trimester Supervision of high risk in third trimester O09.93 Trimester: third trimester 38 weeks gestation of Z3A.38 Weeks of gestation: 38 weeks Family history of spina bifida Z82.79 [...] : Status: Acute Qualifiers: Weeks of gestation: 38 weeks Qualified Code(s): Z3A.38 - 38 weeks gestation of Comment: GBS neg, NIPT low risk, carrier negative in first [...] Orders POC Urinalysis 2 Dip (Clinic) Today 01/15/25 1510 <Electronically signed by Lashay Ibanez DO> Date _ Lashay Fields DO Cosigner Signature: Date (if applicable) CC: ~ [facility] Work Phone: 1(350) 186-488507-28-2025 Progress [facility] [address] [place] [address], [address] [place] [id number] OFFICE VISIT Date of Service: 01/07/25 MR#: [id number] Acct: [id number] Name: CYDNEY BROWN Rep #: [id number] : 2000 Provider: HARJIT Dunne Age/Sex: 24/F [place] [facility] [place]: Signed Intake Vital Signs 12/03/24 09:11 12/31/24 09:41 01/07/25 11:31 Height 5 ft 6 in 5 ft 6 in 5 ft 6 in Weight: 213 lb 2 oz 215 lb 2 oz BMI 34.4 34.7 BP 99/68 119/78 Intake Visit Reasons: 37 wk ob Chief Complaint: 37wk OB Hammerer Tab Required: No Is patient in pain?: No Allergies No Known Allergies Allergy (Verified 01/07/25 11:29) Medications ?Medication ?Instructions ?Recorded ?Confirmed ?Type albuterol sulfate 90 mcg/actuation 2 puff inhalation Q 6H PRN 08/08/23 01/07/25 History aerosol inhaler shortness of breath or wheez ing docosahexaenoic acid 200 mg 1 mg PO QHS 06/26/2401/07 History capsule ( DHA) lactobacillus combination no.4 3 3,000 mmu cells PO QD AY 06/26/24 01/07/25 H istory billion cell capsule (Probiotic) magnesium 200 mg tablet 350 mg PO QDAY 06/26/2412/12 History acetaminophen 500 mg capsule 1,000 mg PO Q6H PRN pain 10/29/24 01/07/25 History nystatin 100,000 unit/gram topical 1 applic topical BI D #30 grams 12/17/24 01/07/25 Rx powder melatonin 3 mg capsule 2 [...] children number of children: 1 current occupation: [employer] current occupational exposures/hazards: No pets and animals: [...] 5-6 times per week duration: 30-45 minutes/day feliciano/samaritan: Buddhist seatbelt use: always do you feel safe at home: Yes additional social history: : 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 Date Name GA/Weeks Outcome Route Bth Weight Infant Gen Labor Lgth Anesthesia Del Locatn Provider FOB 12/09/22 Ines 41 live - full term 7lbs 6oz Female 12 hours epidural Andie Rigo [facility] Delivery Date: 12/09/22 Last Updated by: Rachel Peña RN Retained placenta - bleed x8wk pp, D&C 8wk pp HPI 37 wk ob Details: CYDNEY BROWN is a 24 year old who presents for routine OB visit. OB Visit JANNET Calculator Estimated Delivery Date Method Current WG Current Estimate 01/27/25 LMP (Certain) 37w 1d Expected Delivery Route/Plan Labor Preferences- CB/BF [...] current plan of care details and appropriate ordersplaced. Relevant counseling for the gestational age provided. Continue routine care and follow up unless otherwise noted in visit notes/problem list details Initial Weight: 189 lb Date -?-?-?-?-?-?-?-?-?-?-?-?- EGA Weight BP Urine Prot -?-?-?-?-?-?-?-?-?-?-?-?- Glucose FHR FuHt Pres Dilation -?-?-?-?-?-?-?-?-?-?-?-?- Effaced St Visit Note 07/02/24 -?-?-?-?-?-?-?-?-?-?-?-?- 10w 1d 189 lb (+0 oz) 112/76 -?-?-?-?--?-?-?-?-?-?-?-?- 176 -?-?-?-?-?-?-?-?-?-?-?-?- JV- CRL measures 10 weeks 6 days but still not off by more than 7 days. JANNET is per LMP 01/27/25. Desires nipt. was delivered in [facility] last . had retained placenta andD&C several weeks after delivery 07/30/24 -?-?-?-?-?-?-?-?-?-?-?-?- 14w [...] 6 oz) 100/63 Negative -?-?-?-?-?-?-?-?-?-?-?-?- Negative 150 -?-?-?-?--?-?-?-?-?-?-?-?- SM- no vb lof go od fm [...] husbands health concerns and notices a correlation. ezra fm. Tdap today 12/03/24 -?-?-?-?-?-?-?-?-?-?-?-?- 32w 1d [...] and recommended pepcid. chiropractor for hip pain 01/07/25 -?-?-?-?-?-?-?-?-?-?-?-?- 37w 1d 215 lb 2 oz (+26 lb 2 oz) 119/78 Negative -?-?-?-?-?-?-?-?-?-?-?-?- Negative 145 38 Cephalic 3 -?-?-?-?-?-?-?-?-?-?-?-?- 40 -3 KW- no vb/ lof. some regular contractions on and off. good fm ACOG First Trimester First Trimester: Discussed Second [...] Negative Last Edit by Jennifer Alan on 01/07/25 11:36 Office Urine Protein Negative Last Edit by Jennifer Alan on 01/07/25 11:36 Coding Level of Care Code OB Routine Diagnoses History of retained placenta Z87.59 Obesity affecting in second trimester, unspecified obesity type O99.212 Obesity type affecting : unspecified obesity Trimester: second trimester Supervision of high risk in third trimester O09.93 Trimester: third trimester 37 weeks gestation of Z3A.37 Weeks of gestation: 37 weeks Family history of spina bifida Z82.79 [...] : Status: Acute Qualifiers: Weeks of gestation: 37 weeks Qualified Code(s): Z3A.37 - 37 weeks gestation of Comment: GBS neg, NIPT low risk, carrier negative in first [...] Orders POC Urinalysis 2 Dip (Clinic) Today Plan Details Additional Comments: ACOG trimester education reviewed and updated. see problem list details for updated plan management information and see below for orders placed atthis visit. GA appropriate handout given. 01/07/25 1156 s CNM> Date _ Gonzalez Dnune CNM Cosigner Signature: Date (if applicable) CC: ~ [facility]07-21-2025 Progress [facility] [address] [place] [address], [address] [place] [address] OFFICE VISIT Date of Service: 12/31/24 MR#: [id number] Acct: [id number] Name: CYDNEY BROWN Rep #: [id number] : 2000 Provider: HARJIT Dunne Age/Sex: 24/F [place] [facility] [place]: Signed Intake Vital Signs 10/22/24 12:58 12/25/24 13:53 12/31/24 09:41 Height 5 ft 6 in 5 ft 6 in 5 ft 6 in Weight: 213 lb 2 oz BMI 34.4 BP 99/68 Intake Visit Reasons: 36 wk ob Chief Complaint: 36wk OB Hammerer Tab Required: No Is patient in pain?: No [...] children number of children: 1 current occupation: [employer] current occupational exposures/hazards: No pets and animals: [...] 5-6 times per week duration: 30-45 minutes/day feliciano/samaritan: Buddhist seatbelt use: always do you feel safe at home: Yes additional social history: : 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 Relevant counseling for the gestational age provided. [...] LMP 01/27/25. Desires nipt. was delivered in [facility] last . had retained placenta andD&C several weeks after delivery 07/30/24 -?-?-?-?-?-?-?-?-?-?-?-?- 14w [...] Negative 143 26 -?-?-?-?-?-?-?-?-?-?-?-?- MH-No VB. Ezra Porter. Rash comes and goes under breasts, nystatin [...] information and see below for orders placed atthis visit. GA appropriate handout given. 12/31/24 1010 s HARJIT> Date _ Gonzalez Dunne CNM Cosigner Signature: Date (if applicable) CC: ~ [facility]07-03-2025 Progress note [facility] Medical Records Department [address] [place] [id number] OB Triage Progress Note 12/13/24 1500 MR#: [id number] Acct: [id number] Name: CYDNEY BROWN Rep #:[id number] : 2000 24 From: Sophia marte MD PCP: NOEMÍ Alvarez Status:REG C LI Y DOS: Location: [place] [address] Progress Notes Date of Service: 12/13/24 Progress Note: Patient presents for triage evaluation secondary to dec movement FHT: 140 Moderate variability reactive no decelerations category I tracing [place]: no regular Contractions Assessment and plan: 33 weeks decreased movement Reactive NST, reassuring maternal and status patient discharged to home to follow-up as scheduled. See problem list details for additional plan information. Charges/Coding Procedures Urinary/Genital 52xxx-59xxx: 58988-05 non-stress test Interp 12/13/24 1501 ngoc MANRIQUEZ> Date _ Sophia Ellison MD [facility] Signature (if applicable): Date CC: NOEMÍ Perea; Dr. Sophia Ellison MD ~ Signed [facility]06-23-2025 Progress [facility] [address], [address] [place] [address] OFFICE VISIT Date of Service: 12/03/24 MR#: [id number] Acct: [id number] Name: CYDNEY BROWN Rep #: [id number] : 2000 Provider: Dr. Karen Fields DO Age/Sex: 24/F Location: [facility] [place] Status: Signed Intake Vital Signs 09/24/24 09:00 11/19/24 08:30 12/03/24 09:10 12/03/24 09:11 Height 5 ft 6 in 5 ft 6 in 5 ft 6 in 5 ft 6 in Weight: 215 lb BMI 34.7 BP 127/86 H Intake Visit Reasons: 32 WK OB Hammerer Tab Required: No Is patient in pain?: No [...] 200 mg tablet 350 mg PO QDAY 06/26/24/09/04 History nystatin 100,000 unit/gram topical 1 applic [...] children number of children: 1 current occupation: [employer] current occupational exposures/hazards: No pets and animals: [...] 5-6 times per week duration: 30-45 minutes/day feliciano/samaritan: Buddhist seatbelt use: always do you feel safe at home: Yes additional social history: : 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 Relevant counseling for the gestational age provided. [...] LMP 01/27/25. Desires nipt. was delivered in [facility] last . had retained placenta andD&C several weeks after delivery 07/30/24 -?-?-?-?-?-?-?-?-?-?-?-?- 14w [...] Negative 143 26 -?-?-?-?-?-?-?-?-?-?-?-?- MH-No VB. Ezra Rosales comes and goes under breasts, nystatin sent. [...] Urinalysis 2 Dip (Clinic) Today 12/03/24 0956 e Rosalinda DO> Date _ Lashay Fields DO Cosignromel Signature: Date (if applicable) CC: ~ [facility]05-12-2025 Evaluation note* Diagnosis Onset Date Resolution Status Admit Date Asthma acute October 22, 2024 12:37pm Family [...] high-risk acute December 17, 2024 9 :29am Asthma acute December 25 1:50pm Family history of spina bifida acute December 25, 2024 1:50pm History of eating disorder acute December 25, 2024 1:50pm History of retained placenta acute December 25, 2024 1:50pm Migraine with aura acute December 112024 1:50pm Obesity affecting acute December 25, 2024 1:50pm acute December 25 1:50pm Supervision of high-risk acute December 25, 2024 1:50pm Asthma acute December 31 9:37am Family history of spina bifida acute December 31, 2024 9:37am History of eating disorder acute December 31, 2024 9:37am History of retained placenta acute December 31, 2024 9:37am Migraine with aura acute December 122024 9:37am Obesity affecting acute December 31, 2024 9:37am acute December 31 9:37am Supervision of high-risk acute December 31, 2024 9:37am Asthma acute January 07 11:25am Family history of spina bifida acute January 07, 2025 11:25am History of eating disorder acute January 07, 2025 11:25am History of retained placenta acute January 07, 2025 11:25am Migraine with aura acute December 122024 11:25am Obesity affecting acute January 07, 2025 11:25am acute January 07 11:25am Supervision of high-risk acute January 07, 2025 11:25am Asthma acute January 15 2:00pm Family history of spina bifida acute January 15, 2025 2:00pm History of eating disorder acute January 15, 2025 2:00pm History of retained placenta acute January 15, 2025 2:00pm Migraine with aura acute January 15, 2025 2:00pm Obesity affecting acute January 15, 2025 2:00pm acute January 15 2:00pm Supervision of high-risk acute January 15, 2025 2:00pm Asthma acute January 21, 2 025 1:55pm Family history of spina bifida acute January 21, 2025 1:55pm History of eating disorder acute January 21, 2025 1:55pm History of retained placenta acute January 21, 2025 1:55pm Migraine with aura acute January 21, 2025 1:55pm Obesity affecting acute January 21, 2025 1:55pm acute January 21, 2 025 1:55pm Supervision of high-risk acute January 21 1:55pm [facility] Work Phone: 1(465) 895-229905-12-2025 Evaluation note* Diagnosis Onset Date Resolution Status Admit Date Asthma acute October 22, 2024 12:37pm Family [...] high-risk acute December 17, 2024 9 :29am Asthma acute December 25 1:50pm Family history of spina bifida acute December 25, 2024 1:50pm History of eating disorder acute December 25, 2024 1:50pm History of retained placenta acute December 25, 2024 1:50pm Migraine with aura acute December 112024 1:50pm Obesity affecting acute December 25, 2024 1:50pm acute December 25 1:50pm Supervision of high-risk acute December 25, 2024 1:50pm Asthma acute December 31 9:37am Family history of spina bifida acute December 31, 2024 9:37am History of eating disorder acute December 31, 2024 9:37am History of retained placenta acute December 31, 2024 9:37am Migraine with aura acute December 122024 9:37am Obesity affecting acute December 31, 2024 9:37am acute December 31 9:37am Supervision of high-risk acute December 31, 2024 9:37am Asthma acute January 07 11:25am Family history of spina bifida acute January 07, 2025 11:25am History of eating disorder acute January 07, 2025 11:25am History of retained placenta acute January 07, 2025 11:25am Migraine with aura acute December 122024 11:25am Obesity affecting acute January 07, 2025 11:25am acute January 07 11:25am Supervision of high-risk acute January 07, 2025 11:25am Asthma acute January 15 2:00pm Family history of spina bifida acute January 15, 2025 2:00pm History of eating disorder acute January 15, 2025 2:00pm History of retained placenta acute January 15, 2025 2:00pm Migraine with aura acute January 15, 2025 2:00pm Obesity affecting acute January 15, 2025 2:00pm acute January 15 2:00pm Supervision of high-risk acute January 15, 2025 2:00pm Asthma acute January 21, 2 025 1:55pm Family history of spina bifida acute January 21, 2025 1:55pm History of eating disorder acute January 21, 2025 1:55pm History of retained placenta acute January 21, 2025 1:55pm Migraine with aura acute January 21, 2025 1:55pm Obesity affecting acute January 21, 2025 1:55pm acute January 21, 025 1:55pm Supervision of high-risk acute January 21 1:55pm Asthma acute January 28, 10:25am Family history of spina bifida acute January 28, 2025 10:25am History of eating disorder acute January 28, 2025 10:25am History of retained placenta acute January 28, 2025 10:25am Migraine with aura acute January 28, 2025 10:25am Obesity affecting acute January 28, 2025 10:25am acute January 28, 025 10:25am Supervision of high-risk acute January 28 10:25am [facility] Work Phone: 1(344) 917-800304-14-2025 Evaluation note* Diagnosis Onset Date Resolution Status Admit Date Asthma acute September 24 8:52am Family history [...] high-risk acute December 17, 2024 9 :29am Asthma acute December 25 1:50pm Family history of spina bifida acute December 25, 2024 1:50pm History of eating disorder acute December 25, 2024 1:50pm History of retained placenta acute December 25, 2024 1:50pm Migraine with aura acute December 112024 1:50pm Obesity affecting acute December 25, 2024 1:50pm acute December 25 1:50pm Supervision of high-risk acute December 25, 2024 1:50pm Asthma acute December 31 9:37am Family history of spina bifida acute December 31, 2024 9:37am History of eating disorder acute December 31, 2024 9:37am History of retained placenta acute December 31, 2024 9:37am Migraine with aura acute December 122024 9:37am Obesity affecting acute December 31, 2024 9:37am acute December 31 9:37am Supervision of high-risk acute December 31, 2024 9:37am [facility] Work Phone: 1(704) 871-220804-14-2025 Evaluation note* Diagnosis Onset Date Resolution Status Admit Date Asthma acute September 24 8:52am Family history [...] high-risk acute December 17, 2024 9 :29am Asthma acute December 25 1:50pm Family history of spina bifida acute December 25, 2024 1:50pm History of eating disorder acute December 25, 2024 1:50pm History of retained placenta acute December 25, 2024 1:50pm Migraine with aura acute December 112024 1:50pm Obesity affecting acute December 25, 2024 1:50pm acute December 25 1:50pm Supervision of high-risk acute December 25, 2024 1:50pm Asthma acute December 31 9:37am Family history of spina bifida acute December 31, 2024 9:37am History of eating disorder acute December 31, 2024 9:37am History of retained placenta acute December 31, 2024 9:37am Migraine with aura acute December 122024 9:37am Obesity affecting acute December 31, 2024 9:37am acute December 31 9:37am Supervision of high-risk acute December 31, 2024 9:37am Asthma acute January 07 11:25am Family history of spina bifida acute January 07, 2025 11:25am History of eating disorder acute January 07, 2025 11:25am History of retained placenta acute January 07, 2025 11:25am Migraine with aura acute December 122024 11:25am Obesity affecting acute January 07, 2025 11:25am acute January 07 11:25am Supervision of high-risk acute January 07, 2025 11:25am [facility] Work Phone: 1(474) 759-732204-14-2025 Evaluation note* Diagnosis Onset Date Resolution Status Admit Date Asthma acute September 24 8:52am Family history [...] high-risk acute December 17, 2024 9 :29am Asthma acute December 25 1:50pm Family history of spina bifida acute December 25, 2024 1:50pm History of eating disorder acute December 25, 2024 1:50pm History of retained placenta acute December 25, 2024 1:50pm Migraine with aura acute December 112024 1:50pm Obesity affecting acute December 25, 2024 1:50pm acute December 25 1:50pm Supervision of high-risk acute December 25, 2024 1:50pm Asthma acute December 31 9:37am Family history of spina bifida acute December 31, 2024 9:37am History of eating disorder acute December 31, 2024 9:37am History of retained placenta acute December 31, 2024 9:37am Migraine with aura acute December 122024 9:37am Obesity affecting acute December 31, 2024 9:37am acute December 31 9:37am Supervision of high-risk acute December 31, 2024 9:37am Asthma acute January 07 11:25am Family history of spina bifida acute January 07, 2025 11:25am History of eating disorder acute January 07, 2025 11:25am History of retained placenta acute January 07, 2025 11:25am Migraine with aura acute December 122024 11:25am Obesity affecting acute January 07, 2025 11:25am acute January 07 11:25am Supervision of high-risk acute January 07, 2025 11:25am Asthma acute January 15 2:00pm Family history of spina bifida acute January 15, 2025 2:00pm History of eating disorder acute January 15, 2025 2:00pm History of retained placenta acute January 15, 2025 2:00pm Migraine with aura acute January 15, 2025 2:00pm Obesity affecting acute January 15, 2025 2:00pm acute January 15 2:00pm Supervision of high-risk acute January 15, 2025 2:00pm [facility] Work Phone: 1(335) 123-856004-14-2025 Evaluation note* Diagnosis Onset Date Resolution Status Admit Date Asthma acute September 24 8:52am Family history [...] high-risk acute December 17, 2024 9 :29am Asthma acute December 25 1:50pm Family history of spina bifida acute December 25, 2024 1:50pm History of eating disorder acute December 25, 2024 1:50pm History of retained placenta acute December 25, 2024 1:50pm Migraine with aura acute December 112024 1:50pm Obesity affecting acute December 25, 2024 1:50pm acute December 25 1:50pm Supervision of high-risk acute December 25, 2024 1:50pm Asthma acute December 31 9:37am Family history of spina bifida acute December 31, 2024 9:37am History of eating disorder acute December 31, 2024 9:37am History of retained placenta acute December 31, 2024 9:37am Migraine with aura acute December 122024 9:37am Obesity affecting acute December 31, 2024 9:37am acute December 31 9:37am Supervision of high-risk acute December 31, 2024 9:37am Asthma acute January 07 11:25am Family history of spina bifida acute January 07, 2025 11:25am History of eating disorder acute January 07, 2025 11:25am History of retained placenta acute January 07, 2025 11:25am Migraine with aura acute December 122024 11:25am Obesity affecting acute January 07, 2025 11:25am acute January 07 11:25am Supervision of high-risk acute January 07, 2025 11:25am Asthma acute January 15 2:00pm Family history of spina bifida acute January 15, 2025 2:00pm History of eating disorder acute January 15, 2025 2:00pm History of retained placenta acute January 15, 2025 2:00pm Migraine with aura acute January 15, 2025 2:00pm Obesity affecting acute January 15, 2025 2:00pm acute January 15 2:00pm Supervision of high-risk acute January 15, 2025 2:00pm Asthma acute January 21, 2 1:55pm Family history of spina bifida acute January 21, 2025 1:55pm History of eating disorder acute January 21, 2025 1:55pm History of retained placenta acute January 21, 2025 1:55pm Migraine with aura acute January 21, 2025 1:55pm Obesity affecting acute January 21, 2025 1:55pm acute January 21, 2 025 1:55pm Supervision of high-risk acute January 21 1:55pm [facility] Work Phone: 1([phone]) 923-678703-17-2025 Evaluation note* Diagnosis Onset Date Resolution Status [...] of high-risk acute December 03, 2024 9:09am [facility] Work Phone: 1(514) 559-706303-17-2025 Evaluation note* Diagnosis Onset Date Resolution Status [...] high-risk acute December 17, 2024 9 :29am [facility] Work Phone: 1(176) 933-295502-17-2025 Evaluation note* Diagnosis Onset Date Resolution Status [...] high-risk acute November 06, 2024 9 :51am [facility] Work Phone: 1(304) 542-306702-17-2025 Evaluation note* Diagnosis Onset Date Resolution Status [...] high-risk acute November 19, 2024 8 :27am [facility] Work Phone: 1(488) 344-113201-20-2025 Evaluation note* Diagnosis Onset Date Resolution Status [...] 1:08pm Supervision of high-risk acute July 30, 2 1:08pm Asthma acute August 27 2:20pm Family [...] high-risk acute October 22, 2024 1 2:37pm [facility] Work Phone: [phone] NotePatient: Cydney Brown Procedure Summary Date: 09/29/23 Room / Location: [address] Operating Room Anesthesia Start: 929 Anesthesia Stop: 1004 Procedure: LEFT CONTROL OF ANTERIOR NASAL HEMORRHAGE, COMPLEX (Left: Nose) Diagnosis: Epistaxis (Epistaxis [R04.0]) Surgeons: Radha Scott DO Responsible Provider: Aissatou Garcia APRN - MECHANICAL STRIPER Anesthesia Type: general ASA Status: 2 Anesthesia [...] Allowed opportunity for questions and acknowledgement of understanding.[facility] [id number] NotePatient: Cydney Brown Procedure Summary Date: 09/29/23 Room / Location: [address] Operating Room Anesthesia Start: 929 Anesthesia [...] discharged once all PACU criteria has been met.[place] [address]-18-2024 NoteAirway Date/Time: 09/29/2023 9:38 AM Urgency: scheduled Airway not difficult General Information and Staff Patient location during procedure: Procedural Resident/MECHANICAL STRIPER: Filiberto Rao APRN - MECHANICAL STRIPER Performed: MECHANICAL STRIPER Indications and Patient Condition Indications for airway [...] approach: 1 Number of other approaches attempted: 0[place] [address]-18-2024 NoteH&P reviewed. The patient was examined and there are no changes to the H&P.[place] [address]-18-2024 Note* Perioperative Nursing Note - Coral Baires RN - 09/29/2023 11:05 AM EDT Pt and family verbalized understanding of recovery instructions, pt verbalized a readiness to be discharged home. Pt discharged home via wheelchair accompanied by RN/volunteer. Pt has had all their belongings returned to them at discharge [id number] Note* Perioperative Nursing Note - Coral Baires RN - 09/29/2023 11:05 AM EDT Pt and family verbalized understanding of recovery instructions, pt verbalized a readiness to be discharged home. Pt discharged home via wheelchair accompanied by RN/volunteer. Pt has had all their belongings returned to them at discharge [id number] Miscellaneous Notes* Perioperative Nursing Note - Coral [...] from OR via cart, spont. Resp. With MECHANICAL STRIPER in attendance. Placed on monitor. Monitor alarms [...] closed reduction without incident. documented in this [facility]04-18-2024 Note* Perioperative Nursing Note - Mercedes Rodriguez RN - 09/29/2023 10:52 AM EDT Patient is transported to same day surgery for discharge and is brought to bedside. She is alert and has no complaints. Discharge instructions reviewed with pt and and she states she is ready to go home. Iv discontinued and report is given to coral [id number]* Perioperative Nursing Note - Mercedes Rodriguez RN - 09/29/2023 10:52 AM EDT Patient is transported to same day surgery for discharge and is brought to bedside. She is alert and has no complaints. Discharge instructions reviewed with pt and and she states she is ready to go home. Iv discontinued and report is given to coral [place] [id number] Note* Perioperative Nursing Note - Soumya Marquez RN - 09/29/2023 10:00 AM EDT Pt received from OR via cart, spont. Resp. With MECHANICAL STRIPER in attendance. Placed on monitor. Monitor alarms on in PACU [place] [id number] Note* Perioperative Nursing Note - Soumya Marquez RN - 09/29/2023 10:00 AM EDT Pt received from OR via cart, spont. Resp. With MECHANICAL STRIPER in attendance. Placed on monitor. Monitor alarms on in PACU [facility] [id number] Note* Op Note - Radha Scott DO [...] tolerated the closed reduction without incident. T [facility] [id number] Note* Op Note - Radha Scott DO [...] patient tolerated the closed reduction without incident. [id number] Hospital Discharge instructions* Discharge Instructions* Radha Scott [...] any problems, questions, or concerns. Office Number: [phone] IF YOU HAVE AN EMERGENCY, AND ARE UNABLE TO REACH THE DOCTOR AT THE ABOVE NUMBER, CALL OR GO TO [facility] EMERGENCY ROOM [phone] For patients who have had general anesthesia: [...] Care Everywhere. * General Anesthesia Discharge Instructions (Citizen Of [place]) documented in this [facility]04-18-2024 Attending History and physical note* Radha Scott [...] Nose) - total time 30 minutes Location: [address] Operating Room Surgeons: Radha Scott DO [...] DM, COPD, HERSON, CAD, CHF, a fib, DC, TIA/CVA, DVT/PE Hx problems with anesthesia? -wakes [...] OG Colón Date: 09/23/2023 at 9:40 AM [employer] Phone: [phone] History and physical note* Radha Scott DO [...] Nose) - total time 30 minutes Location: [address] Operating Room Surgeons: Radha Scott DO [...] DM, COPD, HERSON, CAD, CHF, a fib, DC, TIA/CVA, DVT/PE Hx problems with anesthesia? -wakes [...] 09/23/2023 at 9:40 AM documented in this [facility]04-12-2024 NotePatient: Cydney Brown Procedure Information Date/Time: 09/29/23 1000 Procedure: LEFT CONTROL OF ANTERIOR NASAL HEMORRHAGE, COMPLEX (Left: Nose) - total time 30 minutes Location: [address] Operating Room Surgeons: Radha Scott, Relevant [...] results found for this or any previous visit.[facility] 09-23-2023 [id number] PreSurgical History and Physical ? Name: Cydney Brown : 2000 (Age-23 y.o.) Date of Service: Pt seen/examined on 09/23/2023 Procedure Information Date/Time: 09/29/23 1000 Procedure: LEFT CONTROL OF ANTERIOR NASAL HEMORRHAGE, COMPLEX (Left: Nose) - total time 30 minutes Location: [address] Operating Room Surgeons: Radha Scott DO [...] DM, COPD, HERSON, CAD, CHF, a fib, DC, TIA/CVA, DVT/PE Hx problems with anesthesia? -wakes [...] Class I 0.5% 1 (more content not included)...[facility]04-12-2024 Note 2Comprehensive PreSurgical History and Physical ? Name: Cydney Brown : 2000 (Age-23 y.o.) Date of Service: Pt seen/examined on 09/23/2023 Procedure Information Date/Time: 09/29/23 1000 Procedure: LEFT CONTROL OF ANTERIOR NASAL HEMORRHAGE, COMPLEX (Left: Nose) - total time 30 minutes Location: [address] Operating Room Surgeons: Radha Scott DO [...] DM, COPD, HERSON, CAD, CHF, a fib, DC, TIA/CVA, DVT/PE Hx problems with anesthesia? -wakes [...] Class I 0.5% 1 (more content not included)...[facility] [id number] Hospital Discharge instructions Patient Education 02/04/2023 08:30:11 Dilation and Curettage or Vacuum Curettage, Care After, Jzrb-ex-Weoo Dilation and Curettage or Vacuum Curettage, Care [...] ?Do not have sex. General instructions Take zzkq-lqe-vcpulyj and prescription medicines only as told by [...] 03/08/2009 Document Revised: 05/12/2018 Document Reviewed: 02/14/2017 FlexScore Patient Education 2020 [employer]. 02/04/2023 08:30:00 Pain Medicine Instructions, Qluf-th-Nmxn Pain Medicine Instructions You may need pain [...] you take your next dose. Take other onsm-rki-hdhyjmd or prescription medicines only as told by [...] 11/15/2008 Document Revised: 05/12/2018 Document Reviewed: 01/09/2018 FlexScore Patient Education 2020 [employer]Score Inc. 02/04/2023 08:29:23 General Anesthesia, Adult, Care [...] what activities are safe for you. Take vumv-owr-okkxgyx and prescription medicines only as told by [...] 2001 Document Revised: 06/02/2018 Document Reviewed: 01/13/2018 FlexScore Patient Education [employer]. Follow Up Care 02/03/2023 14:19:25 With:MELISA ULLOA MD Address: [address] [place] [phone]- [phone] When:Within 2 Week(s) [facility] 08-25-2023 Nurse Progress note IV discontinued per protocol. No resistance, catheter intact. Bandage applied. Digitally Signed by Anna Koroma RN on 02/04/2023 09:53 AM [facility]08-25-2023 Summary of episode note Discharge Instructions Thank you for allowing [facility] to assist you with your healthcare needs. The following is importantdischarge information regarding your hospital visit. Your Care Team JENNIFFER PEREA APRN-ALISSA What to do next Follow Up Appointments Follow Up with MELISA ULLOA MD When In 2 weeks Where: [address] [place] [phone] The Following Activity and Diet Have Been Ordered for You Discharge Activity - Ordered -- Sexual [place] Restricted, 2 weeks, 02/04/23 8:08:00 EDT Discharge [...] Postoperative pain Duration: 7 Days Pickup at [facility] #31388 New ibuprofen (ibuprofen 800 mg oral tablet) 1 tab(s) by mouth Every 8 hours Duration: 14 Days Pickup at [facility] #82168 Unchanged albuterol (Ventolin HFA MDI (90 mcg/ [...] Multivitamin + DHA) by mouth Pharmacy Information [facility][id number]: [address], [place] [phone] Please take this list to your next [...] Do not have sex. General instructions Take hnsv-bac-ordmsov and prescription medicines only as told by [...] 03/08/2009 Document Revised: 05/12/2018 Document Reviewed: 02/14/2017 Elseagreement24 avtal24 Patient Education 2020 Elsevier Inc. Pain Medicine Instructions You may need [...] you take your next dose. Take other opel-xwm-dzexzrj or prescription medicines only as told by [...] 11/15/2008 Document Revised: 05/12/2018 Document Reviewed: 01/09/2018 Elseagreement24 [email or web address] Patient Education 2020 [employer] Inc. General Anesthesia, Adult, Care After This sheet [...] what activities are safe for you. Take ohyv-awm-ylupool and prescription medicines only as told by [...] 2001 Document Revised: 06/02/2018 Document Reviewed: 01/13/2018 FlexScore Patient Education 2020 [employer]. Additional Information VACCINATE! IT SAVES LIVES! Members of the community who have not yet received the COVID-19 vaccine and would like to receive it can visit one of [facility] vaccine clinics. There are many vaccine clinic locations within the [facility]. For locations and available times, please visit [email or web address].[place].gov/. It is important to note that some COVID mobile vaccine clinics are held outdoors and may be canceled in rainy or stormy conditions. To learn more about pediatric vaccinations (ages 5-11), we invite you to visit the [facility] webpage. [email or web address] [email or web address] learn more about the COVID-19 vaccine, we invite you to visit the CDC website for a list of frequently asked questions.https://www.cdc.gov/coronavirus/2019-ncov/vaccines/faq.html [facility] Patient Portal Access Instructions: Stay connected with your healthcare team and access your personal medical information anytime with the [facility] Patient Portal. Please follow the directions below to create your [facility] account: 1.Access the email account you provided upon registration to the hospital/physician office.2.Look for an invitation email from [facility].3.Open the email and access the invitation link: AcceptInvitation to [facility].4.Fill in the required velasquez to create your account. To access your account, visit [email or web address]. Click the blue button labeled Access Patient Portal and then log in with the username and password that you created in the steps above. You will be able to view your test results, lab results, a summary of your visits, upcoming appointments and more. There is also a convenient messaging option where you can send secure messages to your p MyFreightWorldvider. In addition, you will have the ability to download any documents or summaries to your computer and/or send the information securely to a physician. Remember that your healthcare information is confidential, so carefully consider who you will allowto register on the [facility] Patient Portal for access to your information. You can also access the [facility] Patient Portal on the [facility] Know[facility] rashel. Simply click on Patient Portal and then log into your account. If you would like to receive a full copy of your medical records, please contact the [facility] Medical Records Department by calling [phone], Tuesday through Tuesday between 8 a.m. and [...] Call your local pharmacy or go to http://bit.ly/4A1Zg7t to find one close to you.3.Make use of household items: Use cat litter or old coffee grounds to dispose medications if other options arenot available. Mix your drugs with these household products, seal them in an airtight container andthrow it into the garbage. Call [facility]: [phone] to be sure your drugs can be [...] and Curettage or Vacuum Curettage, Care After, Ggxm-pq-Dyyq Pain Medicine Instructions, Xzzy-sr-Qrnr General Anesthesia, Adult, Care After Medication Leaflets My discharge plan and instructions have been reviewed and explained to me and I,CYDNEY BROWN M understand my current condition and have read and understand these discharge instructions. I have received a written copy of the plan/instructions. If I have questions, I am aware that I should contactmy doctor. Patient/Circle Shear Operator Signature: Date/Time: Relationship to Patient: Witness Name/Signature: Date/Time: [facility]08-25-2023 Note ORIGINAL HISTORY: Retained products of conception COMPARISON: No IMPRESSION: Intraoperative ultrasound provided to the OBGYN service. Interpreted by: Cale Khanna MD Preliminary Report By: Cale Khanna MD Electronically signed By Cale Khanna MD Dictated Date: 02/04/2023 9:49:55 AM Prelim Date: 02/04/2023 9:50:31 AM Sign Date: 02/04/2023 9:50:31 AM Ordering Provider: [facility]08-25-2023 Anesthesiology Consult note Patient: CYDNEY BROWN Age: 22 years Sex: Female : 2000 Associated Diagnoses: None Author: GURMEET JUAREZ APRN-MECHANICAL STRIPER Preoperative Information Time of last food or [...] Problem list: Medical Asthma / SNOMED CT 095353154 / Confirmed Endometriosis of pelvis / SNOMED CT 77596909 / Confirmed Excess weight gain in / SNOMED CT 1490717282 / Confirmed Gastric reflux / SNOMED CT 625370343 / Confirmed Migraine / SNOMED CT 02352216 / Confirmed / SNOMED CT 671216602 / Confirmed Scoliosis / SNOMED CT 671722883 / Confirmed Right ankle swelling / SNOMED CT 1332054310 / Confirmed Viral URI / SNOMED CT 652063783 / Confirmed Resolved: COVID-19 / SNOMED CT 6551465388 Resolved: Dysmenorrhea / SNOMED CT 808758246 Resolved: Dyspareunia, female / SNOMED CT 535884083 Resolved: Right ankle sprain / SNOMED CT 96791810 Canceled: Upper respiratory disease / SNOMED CT 4918829618 Canceled: Viral URI with cough / SNOMED CT 764957885, Active Problems (9) Asthma Endometriosis of pelvis Excess weight gain in Gastric reflux Migraine Right ankle swelling Scoliosis Viral URI Histories Past Medical History: Resolved Dysmenorrhea (534170227): Resolved. COVID-19 (8441253032): Resolved. Dyspareunia, female (472023043): Resolved. Right ankle sprain (68432013): Resolved. Family History: Breast cancer Grandparent Heart attack Grandparent Depression Grandparent Liver disease Paternal Grandfather Skin cancer Grandparent Diabetes Grandparent Paternal Aunt Mitral valve disorder Mother Procedure history: Nasal cautery (569015801). [place] tooth (46832147). Social History Social & Psychosocial Habits Alcohol [...] OralL 35.3DegC (FEB 04 06:06) Heart Rate Tfqbhbrfv12 bpm (FEB 04 07:20) Resp Rate 15 br/min (FEB 04 06:06) SBP91 mmHg (FEB 04 07:15) DBP50 mmHg (FEB 04 07:15) BMI26.7 (FEB 04 06:23) Measurements from flowsheet : Measurements 02/04/2023 6:23 EDT Body Mass Index 26.7 kg/m2 02/04/2023 6:06 EDT Height 167.6 cm Admission Weight 75 kg [place] Body Weight 59.26 kg Admission Body Mass Index 26.7 m2 02/03/2023 14:04 EDT Height 167.6 cm Height in inches 66 inch(es) Admission Weight 75 kg Weight Lbs 165 lb [place] Body Weight 59.26 kg BSA Admission 1.84 [...] EDT SN - CAt - Role Performed Fruit Thinner Machine Operator 02/04/2023 7:20 EDT Heart Rate Monitored 78 [...] Type CATH URETHRAL 14FR RED RUBBER 100/CA [id number] SN - TDC - Location BLADDER SN [...] Attendee SN - CAt - Role Performed MECHANICAL STRIPER SN - CAt - Role Performed Community Coordinator For High School 1 SN - CAt - Role Performed Scrub 1 SN - CAt - Role Performed Primer Inserting Machine Adjuster 1 02/04/2023 6:32 EDT SN - GCD [...] Person #1 We May Share RONIT Roberts [facility] [phone] Designated Person #1 Relationship Spouse Privacy Restrictions [...] evident Teaching Method Explanation Preferred Spoken Language Citizen Of [place] Preferred Written Language Citizen Of [place] Teaching Evaluation Needs further teaching Safety Brochure [...] 6:09 EDT IV Present Present Allergies No Wireless Telegrapher On Yes Consent Form Signed Yes Patient [...] Height 167.6 cm Admission Weight 75 kg [place] Body Weight 59.26 kg Admission Body Mass [...] no difficulties Skin Temperature Warm Skin Description [place], Dry Skin Integrity Intact Mucous Membrane Color [place] Characteristics of Speech Clear Level of Consciousness [...] Wheels locked, Non-Slip footwear 02/03/2023 14:58 EDT RADIOGRAPHER ANGIOGRAM Phone Message Computer Application Developer 02/03/2023 14:19 EDT Gynecology Office Note CORPORATE LOGISTICS MANAGER preop Office Visit Note History of Present Illness Documentation History of Present Illness Documentation 02/03/2023 14:07 EDT D-EGA at Documented Date, Time 40W 2D 02/03/2023 14:04 EDT Height 167.6 cm Height in inches 66 inch(es) Admission Weight 75 kg Weight Lbs 165 lb [place] Body Weight 59.26 kg BSA Admission 1.84 [...] Text Ambulatory Quick Intake Amb Preferred Lab [facility] 02/03/2023 7:18 EDT CSummary CSUMMARY 02/03/2023 0:41 EDT [facility] . Assessment and Plan [place] Society of Anesthesiologists (ASA) physical status classification: Class II. Anesthetic Preoperative Plan Premedication: intravenous. Anesthetic technique: General. Induction: intravenously. Maintenance airway: Laryngeal mask airway. Postoperative pain management: Per surgeon. Risks discussed: nausea, vomiting, headache, sore throat, dental injury, hypotension, allergic reaction, serious complications. Informed consent: signed by patient. Digitally Signed by GURMEET JUAREZ on 02/04/2023 07:29 AM [facility]08-25-2023 Note Date of Service 02/04/23 History and [...] MELISA ULLOA MD on 02/04/2023 06:32 AM [facility]08-23-2023 Note ORIGINAL EXAMINATION: TRANSVAGINAL and transabdominal PELVIC [...] Date: 02/02/2023 2:33:37 PM Ordering Provider: [facility]SChildren[facility] Hospital Discharge instructions Patient Education 12/10/2022 11:05:50 [...] or silent sucking, without causing you pain. Infant's lips should be extended outward (flanged). Swallowing [...] sounds, smacking lips, cooing, sighing, or squeaking. Dinh-wm-vlrrx movements and sucking on fingers or hands. [...] able to be present during feedings. Your healthcare market consultant can help you find a method [...] recommendations, contact your health careprovider or a healthcare market consultant. Overall health care recommendations while Eat [...] provider before taking any medicines. These include konx-lya-twllfzm andprescription medicines as well as vitamins and herbal supplements. Some medicines that may be harmful to your baby can pass through breast milk. It is possible to become while . If control is desired, ask your healthcare provider about options that will be safe while your baby. Where to find more information: [employer]: www.llli.org Contact a health care [...] for and mothers. Try to breastfeed your infant when he or she shows early signs [...] Talk with your health care provider or healthcare market consultant if you have questions or you face problems as you breastfeed. This information is not intended to replace advice given to you by your health care provider. Make sure you discuss any questions you have with your health care provider. Document Released: 05/30/2006 Document Revised: 08/24/2018 Document Reviewed: 07/01/2017 FlexScore Patient Education 2020 [employer]. 12/10/2022 11:05:43 7b- Depression and Blues (03/2020)(CUSTOM) [...] psychosis. Often, a screening tool called the [place] Depression Scale is used to diagnose depression [...] music. Avoid alcohol. Ask for help with director of product management, cooking, grocery shopping, or running errands as needed. Do nottry to do everything. Talk to people close to you about how you are feeling. Get support from your partner, family members, and friends. Try to stay positive in how you think. Think about the things you are grateful for. Do not spend a lot of time alone. Only take dpay-jfm-vkkdpwx or prescription medicine as directed by your [...] not doing well or get worse. Resource: [facility] Patient Information 2015 [facility]. This information is not intended to replace [...] work with your health care provider or healthcare market consultant. If you are not : ?Avoid [...] about methods of control (contraception). Medicines Take yune-vgo-tkzblzz and prescription medicines only as told by [...] 03/26/2008 Document Revised: 06/02/2018 Document Reviewed: 03/13/2018 FlexScore Patient Education 2020 [employer]. [facility] 06-29-2023 Anesthesiology Consult note Patient: CYDNEY BROWN Age: 22 years Sex: Female : 2000 Associated Diagnoses: None Author: ANTOINETTE KAHNMECHANICAL STRIPER Preoperative Information Time of last food or [...] tab(s), 6 Refill(s) Documented Medications Documented Evening [place] [employer] 1000 mg oral capsule: 1,000 mg, [...] Problem list: Medical Asthma / SNOMED CT 982578715 / Confirmed Endometriosis of pelvis / SNOMED CT 87243872 / Confirmed Excess weight gain in / SNOMED CT 7066583022 / Confirmed Gastric reflux / SNOMED CT 222966835 / Confirmed Migraine / SNOMED CT 42565721 / Confirmed / SNOMED CT 270809422 / Confirmed Scoliosis / SNOMED CT 092044211 / Confirmed Right ankle swelling / SNOMED CT 8573267559 / Confirmed Viral URI / SNOMED CT 930542674 / Confirmed, Active Problems (9) Asthma Endometriosis of pelvis Excess weight gain in Gastric reflux Migraine Right ankle swelling Scoliosis Viral URI Histories Past Medical History: Resolved Dysmenorrhea (784977394): Resolved. COVID-19 (7286218098): Resolved. Dyspareunia, female (507350017): Resolved. Right ankle sprain (22724973): Resolved. Family History: Breast cancer Grandparent Heart attack Grandparent Depression Grandparent Liver disease Paternal Grandfather Skin cancer Grandparent Diabetes Grandparent Paternal Aunt Mitral valve disorder Mother Procedure history: Nasal cautery (126856715). [place] tooth (44973851). Social History Social & Psychosocial Habits Alcohol [...] Resp Rate 18 br/min (DEC 09 00:09) HVV385 mmHg (DEC 09 00:09) DBPL 53mmHg (DEC 09 00:09) BMI29.37 (DEC 08 22:42) Measurements from flowsheet : Measurements 12/08/2022 22:42 EDT Height 167.6 cm Admission Weight 82.5 kg [place] Body Weight 59.26 kg BSA Admission 1.92 Body Mass Index 29.37 kg/m2 12/08/2022 22:28 EDT Height 167.6 cm Admission Weight 82.5 kg [place] Body Weight 59.26 kg BSA Admission 1.92 Body Mass Index 29.37 kg/m2 12/08/2022 3:43 EDT Height 167.5 cm Admission Weight 82.7 kg [place] Body Weight 59.17 kg BSA Admission 1.92 [...] with support Epidural Placed By ANTOINETTE KAHN BRICK SETTER OPERATOR-MECHANICAL STRIPER Epidural Test Dose Time 12/09/2022 0:02 Epidural [...] Screen Gel Negative ABSC 12/08/2022 22:56 EDT [place] History and Physical History and Physical 12/08/2022 [...] Nonreactive Designated Person #1 We May Share [facility] Fabrizio [facility] [phone] Designated Person #1 Relationship Spouse Privacy Restrictions Requested None Height 167.6 cm Admission Weight 82.5 kg [place] Body Weight 59.26 kg BSA Admission 1.92 [...] Surrogate No Tubal Sterilization Planned No Discharge [place] Physician Jenniffer Perea Written Plan Yes - See paper plan on chart [facility] Participant No Safe Sleep Environment for Baby [...] Unable to complete Andie Pfeiffer Video Viewed Patient refused Teaching Evaluation No further teaching needed Preferred Written Language Citizen Of [place] Preferred Spoken Language Citizen Of [place] Chief Complaint labor check Mode of Arrival Wheelchair Information Given by Spouse Patient's Current Physicians Dr. Lee/ Dr. Ulloa Emergency Contact Number fabrizio brown [phone] Reason For Visit OB Labor check Belongings [...] Height 167.6 cm Admission Weight 82.5 kg [place] Body Weight 59.26 kg BSA Admission 1.92 [...] No Weight Loss No Preferred Written Language Citizen Of [place] Preferred Spoken Language Citizen Of [place] Chief Complaint labor check Mode of Arrival Wheelchair Information Given by Spouse Patient's Current Physicians dr. lee Emergency Contact Number fabrizio banner [facility] [phone] Reason For Visit OB Labor check Belongings [...] Monitoring Annotations Triage Evaluation 12/08/2022 4:42 EDT [facility] Inpatient Summary Women's Health Inpatient Discharge Instructions [...] Labor check Last Food Intake 12/08/2022 3:28 [facility] OB Screen Note OB Screening [facility] (Modified) OB Screening Form [facility] OB Screening Form [facility] (Modified) 12/08/2022 3:55 EDT Amnisure Negative QC AMNI Valid 12/08/2022 3:43 EDT Height 167.5 cm Admission Weight 82.7 kg [place] Body Weight 59.17 kg BSA Admission 1.92 [...] No Weight Loss No Preferred Written Language Citizen Of [place] Preferred Spoken Language Citizen Of [place] Chief Complaint Labor check Mode of Arrival Ambulatory Information Given by Patient Patient's Current Physicians dr. lee Emergency Contact Number fabrizio brown [phone] Belongings At Bedside Cell phone, Purse Personal [...] History OB Triage . Assessment and Plan [place] Society of Anesthesiologists (ASA) physical status classification: Class II. Anesthetic Preoperative Plan Anesthetic technique: Epidural. Postoperative pain management: Per surgeon. Informed consent: signed by patient. Digitally Signed by ANTOINETTE KAHN on 12/09/2022 12:42 AM [facility] Hospital Discharge instructions Patient Education 12/08/2022 04:42:53 7 - Labor and Delivery Outpatient Instructions (CUSTOM) [place] OUTPATIENT HOME-GOING INSTRUCTIONS _X_ [...] crackers, bananas, Jell-O, cooked carrots, applesauce. ___ [place] diet. Avoid caffeine, chocolate, alcohol, spiced/greasy foods. [...] the nearest Emergency Room for assistance. Form [id number] D: 05/21 Document Released: 05/30/2006 Document Revised: 05/18/2012 Document Reviewed: 05/30/2006 ExitCare Patient Information 2012 [employer]. Follow Up Care 12/08/2022 03:37:01 With:LILLI LEE Address: [address] [facility] [address] [facility] [place] [address]- [phone] Business (1) When: Unknown [facility] 06-27-2023 Hospital Discharge instructions Patient Education 12/07/2022 03:22:01 [facility] L&D Outpatient Instructions (AORN) [facility] DELIVERY OUTPATIENT HOME-GOING INSTRUCTIONS _X_ [...] crackers, bananas, Jell-O, cooked carrots, applesauce. ___ [place] diet. Avoid caffeine, chocolate, alcohol, spiced/greasy foods. [...] Emergency Room for assistance. Form D: 05/21 [facility] 01-29-2023 Hospital Discharge instructions Patient Education 07/11/2022 [...] or pharmacist before taking a new medicine. [phone] The Mobile Messenger. [address] [place] [address]. All rights reserved. This information is not intended as a substitute for professional medical care. Always follow yourhealthcare professional's instructions. Follow Up Care 07/11/2022 18:49:49 With:LILLI LEE MD Address: [address] [facility] [address] [facility] [place] [address]- [phone] When:2-4 days With:JENNIFFER PEREA [facility] Address: [address] [facility] [place] [address]- [phone] When:2-4 days [facility] 01-29-2023 Note Discharge Instructions Thank you for allowing [facility] to assist you with your healthcare needs. The following is importantdischarge information regarding your hospital visit. Diagnosis from Today's Visit Abdominal discomfort Headache GERD (gastroesophageal reflux disease) Abdominal pain - 19 weeks What to Do Next Instructions from Your Care Team Please follow-up with your RADIOGRAPHER ANGIOGRAM. We are providing you with a prescription [...] When Within 2-4 days Where: [address] [facility] [address] [facility] [place] [address]- [phone] Follow Up with JENNIFFER PEREA APRN-ALISSA When Within 2-4 days Where: [address] [facility] [place] [address]- [phone] Allergies NKA Medications Please ask your primary [...] or pharmacist before taking a new medicine. [phone] The Mobile Messenger. [address] [place] [address], [place] [address]. All rights reserved. This information is not intended as a substitute for professional medical care. Always follow yourhealthcare professional's instructions. Additional Information VACCINATE! IT SAVES LIVES! Members of the community who have not yet received the COVID-19 vaccine and would like to receive it can visit one of [facility] vaccine clinics. There are many vaccine clinic locations within the [facility]. For locations and available times, please visit [email or web address]. It is important to note that some COVID mobile vaccine clinics are held outdoors and may be canceled in rainy orstormy conditions. To learn more about pediatric vaccinations (ages 5-11), we invite you to visit the [facility] webpage. [email or web address] /[email or web address]-Cudea-Yhpvvkywqws-Rfpylwmqsi-Vyhqf-Vud stions.htmlTo learn more about the COVID-19 vaccine, we invite you to visit the [facility] website for a list of frequently asked questions. [email or web address]-[email or web address] _Asked-Questions.pdf [facility] Patient Portal Access Instructions: Stay connected with your healthcare team and access your personal medical information anytime with the [facility] Patient Portal. If you would like a full copy of your medical records please contact the [facility] Medical Records Department Tuesday through Tuesday between 8a.m. and 4:30p.m. Please follow the directions below to access the portal: 1.Access the email account you provided upon registration to the hospital.2.Look for an invitation email from [facility].3.Open the email and access the invitation link: Accept Invitation to [facility]4.Fill in the required velasquez to create your account. Sign into www.[employer] with your username and password that you [...] you will allow to register on the [facility] Patient Portal for access to your information. You can also access the [facility] Patient Portal on the First Coverage. Simply click on Health Records under HealthData and then click on the [employer] logo. HOW TO SAFELY DISPOSE OF PRESCRIPTION [...] Call your local pharmacy or go to http://Habet.Choister/5T3Kq1a to find one close to you.3.Make use of household items: Use cat litter or old coffee grounds to dispose medications if other options arenot available. Mix your drugs with these household products, seal them in an airtight container andthrow it into the garbage. Call [facility]: [phone] to be sure your drugs can be [...] am aware that I should contactmy doctor. Patient/Circle Shear Operator Signature: Date/Time: Relationship to Patient: Witness Name/Signature: Date[facility]Time: [facility] No data available for this section [facility] Evaluation + Plan note Future Appointments Appointment Date:12/17/2021 05:00:00 PM Scheduled Provider: Location:[facility] Appointment Type:US Pelvis Non-OB Complete Future Scheduled Tests Laboratory* Pathology Computer Application Developer Request 12/02/21 Radiology* US Pelvis Non-OB Complete 12/17/21 [facility] Evaluation + Plan note Future Appointments Appointment Date:06/16/2022 02:00:00 PM Scheduled Provider:SAURABH PARSONS Location:[facility] Appointment Type:WH OV OB Routine Follow Up Diagnostic Tests Pending * N. gonorrhoeae PCR 05/19/22 * Urine Culture 05/19/22 * Varicella Zoster Antibody 05/19/22 * Chlamydia trachomatis PCR 05/19/22 * Panel (AO) 05/19/22 Future Scheduled Tests Laboratory* Panel (AO) 05/19/22 * HIV 1/2 Ab 05/19/22 * [facility] [place] (Blood Specimens) 05/19/22 [facility] Evaluation + Plan note Future Appointments Appointment Date:06/16/2022 02:00:00 PM Scheduled Provider:SAURABH PARSONS Location:[facility] Appointment Type: OV OB Routine Follow Up Future Scheduled Tests Laboratory* Panel (AO) 05/19/22 * HIV 1/2 Ab 05/19/22 * [facility] Lab Send out (Blood Specimens) 05/19/22 [facility] evaluation + Plan note Future Appointments Appointment Date:07/14/2022 02:30:00 PM Scheduled Provider:LILLI LEE MD Location:[facility] Appointment Type: OV OB Routine Follow Up Appointment Date:07/14/2022 04:00:00 PM Scheduled Provider: Location:[facility] Appointment Type:US OB > 14 wks Future Scheduled Tests Laboratory* Panel (AO) 05/19/22 * HIV 1/2 Ab 05/19/22 * [facility] Lab Send out (Blood Specimens) 05/19/22 Radiology* US OB > 14 weeks 07/14/22 [facility] Evaluation + Plan note Future Appointments Appointment Date:08/16/2022 02:00:00 PM Scheduled Provider:MELISA ULLOA MD Location:[facility] Appointment Type:[facility] OB Routine Follow Up Future Scheduled Tests Laboratory* Panel (AO) 05/19/22 * HIV 1/2 Ab 05/19/22 * [facility] Lab Send out (Blood Specimens) 05/19/22 [facility] [place] + Plan note Future Appointments Appointment Date:09/27/2022 01:15:00 PM Scheduled Provider:MELISA ULLOA MD Location:[facility] Appointment Type: OV OB Routine Follow Up Diagnostic Tests Pending * Rapid Plasma Reagin Test 09/14/22 [facility] evaluation + Plan note Future Appointments Appointment Date:11/16/2022 01:45:00 PM Scheduled Provider:LILLI LEE MD Location:[facility] Appointment Type: OV OB Routine Follow Up [facility] evaluation + Plan note Future Appointments Appointment Date:12/15/2022 11:00:00 AM Scheduled Provider:LILLI LEE MD Location:[facility] Appointment Type: OV OB Routine Follow Up [facility] Evaluation noteNo assessment information available [facility] Work Phone: Evaluation note* Diagnosis Onset Date Resolution Status Migraine with aura acute Encounter for routine gynecological examination noneactive Care and examination of lactating mother noneactive Nipple pain noneactive [facility] Work Phone: Hospital Discharge instructions No data available for this section [facility] Progress note No data available for this section [facility] Progress note Author Lashay Tellez [facility] Note Date/Time December 03, 2024 9:56 am [facility] [address], [address] [place] [address] OFFICE VISIT Date of Service: 12/03/24 MR#: [id number] Acct: [id number] Name: CYDNEY BROWN Rep #: [id number] : 2000 Provider: Dr. Karen Fields DO Age/Sex: 24/F [place] [facility] [place]: Signed Intake Vital Signs 09/24/24 09:00 11/19/24 08:30 12/03/24 09:10 12/03/24 09:11 Height 5 ft 6 in 5 ft 6 in 5 ft 6 in 5 ft 6 in Weight: 215 lb BMI 34.7 BP 127/86 H Intake Visit Reasons: 32 WK OB Hammerer Tab Required: No Is patient in pain?: No [...] 200 mg tablet 350 mg PO QDAY 06/26/24/09/04 History nystatin 100,000 unit/gram topical 1 applic [...] children number of children: 1 current occupation: [employer] current occupational exposures/hazards: No pets and animals: [...] 5-6 times per week duration: 30-45 minutes/day feliciano/samaritan: Buddhist seatbelt use: always do you feel safe at home: Yes additional social history: : Fabrizio- Avionics Electronics Technician @ [employer] History 2 Elective abortions [...] LMP 01/27/25. Desires nipt. was delivered in [facility] last . had retained placenta and D&C [...] -?-?-?-?-?-?-?-?-?-?-?-?- Negative 143 26 -?-?-?-?-?-?-?-?-?-?-?-?- MH-No VB. Good F M. Rash comes and goes under [...] Lashay Ibanez DO> Date _ Lashay Fields DO Patel Signature: Date (if applicable) CC: ~ [facility] Work Phone: Progress note Author Sophia Ellison [facility] Note Date/Time December 13, 2024 3:01p [facility] Medical Records Department [address] [place] [address] OB Triage Progress Note 12/13/24 1500 MR#: [id number] Acct: [id number] Name: CYDNEY BROWN Rep #:[id number] : 2000 24 From: Sophia marte MD PCP: NOEMÍ Alvarez Status:REG C LI Y DOS: Location: [place] [address] Progress Notes Date of Service: 12/13/24 Progress Note: Patient presents for triage evaluation secondary to dec movement FHT: 140 Moderate variability reactive no decelerations category I tracing [place]: no regular Contractions Assessment and plan: 33 weeks decreased movement Reactive NST, reassuring maternal and status patient discharged to home to follow-up as scheduled. See problem list details for additional plan information. Charges/Coding Procedures Urinary/Genital 52xxx-59xxx: [id number] non-stress test Interp 12/13/24 1501 <Electronically signed by Sophia grossman MD> Date _ Sophia Patel Signature (if applicable): Date CC: PERSONNEL ADVISERWoodrow Perea; Dr. Sophia Ellison MD ~ Signed [facility] Work Phone: Progress note Author Gonzalez Dunne [facility] Note Date/Time December 31, 2024 10:1 0am [facility] [address] [place] [address], [address] [place] [address] OFFICE VISIT Date of Service: 12/31/24 MR#: [id number] Acct: [id number] Name: CYDNEY BROWN Rep #: [id number] : 2000 Provider: HARJIT Dunne Age/Sex: 24/F [place] [facility] [place]: Signed Intake Vital Signs 10/22/24 12:58 12/25/24 13:53 12/31/24 09:41 Height 5 ft 6 in 5 ft 6 in 5 ft 6 in Weight: 213 lb 2 oz BMI 34.4 BP 99/68 Intake Visit Reasons: 36 wk ob Chief Complaint: 36wk OB Hammerer Tab Required: No Is patient in pain?: No [...] children number of children: 1 current occupation: [employer] current occupational exposures/hazards: No pets and animals: [...] 5-6 times per week duration: 30-45 minutes/day feliciano/samaritan: Buddhist seatbelt use: always do you feel safe at home: Yes additional social history: : 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 Date Name GA/Weeks Outcome Route Bth Weight Gen Labor Lgth Anesthesia Del Locatn Provider FOB 12/09/22 Ines 41 live - full term 7lbs 6oz Female 12 hours epidural Andie Percybernabe Roberts Delivery Date: 12/09/22 Last Updated by: [...] LMP 01/27/25. Desires nipt. was delivered in [facility] last . had retained placenta and D&C [...] Negative 143 26 -?-?-?-?-?-?-?-?-?-?-?-?- MH-No VB. Ezra Gan M. Rash comes and goes under breasts, nystatin sent. [facility]. 28 wk labs pending 11/06/24 -?-?-?-?-?-?-?-?-?-?-?-?- 28w [...] Cosigner Signature: Date (if applicable) CC: ~ [facility] Work Phone: Progress note Author Gonzalez Dunne [facility] Note Date/Time January 07, 2025 11:5 6am [facility] [address] [place] [address], [address] [place] [address] OFFICE VISIT Date of Service: 01/07/25 MR#: [id number] Acct: [id number] Name: CYDNEY BROWN Rep #: [id number] : 2000 Provider: HARJIT Dunne Age/Sex: 24/F Location[place] [facility] Status: Signed Intake Vital Signs 12/03/24 09:11 12/31/24 09:41 01/07/25 11:31 Height 5 ft 6 in 5 ft 6 in 5 ft 6 in Weight: 213 lb 2 oz 215 lb 2 oz BMI 34.4 34.7 BP 99/68 119/78 Intake Visit Reasons: 37 wk ob Chief Complaint: 37wk OB Hammerer Tab Required: No Is patient in pain?: No Allergies No Known Allergies Allergy (Verified 01/07/25 11:29) Medications ?Medication ?Instructions ?Recorded ?Confirmed ?Type albuterol sulfate 90 mcg/actuation 2 puff inhalation Q 6H PRN 08/08/23 01/07/25 History aerosol inhaler shortness of breath or wheez ing docosahexaenoic acid 200 mg 1 mg PO QHS 06/26/2401/07 History capsule ( DHA) lactobacillus combination no.4 3 3,000 mmu cells PO QD AY 06/26/24 01/07/25 H istory billion cell capsule (Probiotic) magnesium 200 mg tablet 350 mg PO QDAY 06/26/2412/12 History acetaminophen 500 mg capsule 1,000 mg PO Q6H PRN pain 10/29/24 01/07/25 History nystatin 100,000 unit/gram topical 1 applic topical BI D #30 grams 12/17/24 01/07/25 Rx powder melatonin 3 mg capsule 2 [...] children number of children: 1 current occupation: [employer] current occupational exposures/hazards: No pets and animals: [...] 5-6 times per week duration: 30-45 minutes/day feliciano/samaritan: Buddhist seatbelt use: always do you feel safe at home: Yes additional social history: : 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 OB Visit JANNET Calculator Estimated Delivery Date Method Current WG Current Estimate 01/27/25 LMP (Certain) 37w 1d Expected Delivery Route/Plan Labor Preferences- CB/BF [...] 10w 1d 189 lb (+0 oz) 112/76 -?-?-?-?--?-?-?-?-?-?-?-?- 176 -?-?-?-?-?-?-?-?-?-?-?-?- JV- CRL measures 10 weeks 6 days but still not off by more than 7 days. JANNET is per LMP 01/27/25. Desires nipt. was delivered in [facility] last . had retained placenta and D&C [...] 6 oz) 100/63 Negative -?-?-?-?-?-?-?-?-?-?-?-?- Negative 150 -?-?-?-?--?-?-?-?-?-?-?-?- SM- no vb lof go od fm some ijeoma seaman. 10/22/24 -?-?-?-?-?-?-?-?-?-?-?-?- 26w 1d 209 lb 2 oz (+20 lb 2 oz) 98/66 Negative -?-?-?-?-?-?-?-?-?-?-?-?- Negative 143 26 -?-?-?-?-?-?-?-?-?-?-?-?- -No VB. Ezra Rosales comes and goes under breasts, nystatin sent. [...] and recommended pepcid. chiropractor for hip pain 01/07/25 -?-?-?-?-?-?-?-?-?-?-?-?- 37w 1d 215 lb 2 oz (+26 lb 2 oz) 119/78 Negative -?-?-?-?-?-?-?-?-?-?-?-?- Negative 145 38 Cephalic 3 -?-?-?-?-?-?-?-?-?-?-?-?- 40 -3 KW- no vb/ lof. some regular contractions on and off. good fm ACOG First Trimester First Trimester: Discussed Second [...] Negative Last Edit by Jennifer Alan on 01/07/25 11:36 Office Urine Protein Negative Last Edit by Jennifer Alan on 01/07/25 11:36 Coding Level of Care Code OB Routine Diagnoses History of retained placenta Z87.59 Obesity affecting in second trimester, unspecified obesity type O99.212 Obesity type affecting : unspecified obesity Trimester: second trimester Supervision of high risk in third trimester O09.93 Trimester: third trimester 37 weeks gestation of Z3A.37 Weeks of gestation: 37 weeks Family history of spina bifida Z82.79 [...] : Status: Acute Qualifiers: Weeks of gestation: 37 weeks Qualified Code(s): Z3A.37 - 37 weeks gestation of Comment: GBS neg, NIPT low risk, carrier negative in first [...] Orders POC Urinalysis 2 Dip (Clinic) Today Plan Details Additional Comments: ACOG trimester education reviewed and updated. see problem list details for updated plan management information and see below for orders placed at this visit. GA appropriate handout given. 01/07/25 1156 <Electronically signed by Gonzalez gomez CNM> Date _ Gonzalez Dunne CNM Cosigner Signature: Date (if applicable) CC: ~ [facility] Work Phone: Progress note Author Gonzalez Dunne [facility] Note Date/Time January 28, 2025 11 :07am [facility] [address], [address] [place] [address] OFFICE VISIT Date of Service: 01/28/25 MR#: [id number] Acct: [id number] Name: CYDNEY BROWN Rep #: [id number] : 2000 Provider: HARJIT Dunne Age/Sex: 24/F [place] [facility] [place]: Signed Intake Vital Signs 12/03/24 09:11 01/21/25 14:02 01/28/25 10:31 Height 5 ft 6 in 5 ft 6 in 5 ft 6 in Weight: 216 lb BMI 34.8 BP 118/65 Intake Visit Reasons: 40wk ob *JANNET 01/27 Chief Complaint: 40wk OB Hammerer Tab Required: No Is patient in pain?: No Allergies No Known Allergies Allergy (Verified 01/28/25 10:28) Medications ?Medication ?Instructions ?Recorded ?Confirmed ?Type albuterol sulfate 90 mcg/actuation 2 puff inhalation Q 6H PRN 08/08/23 01/28/25 History aerosol inhaler shortness of breath or wheez ing docosahexaenoic acid 200 mg 1 mg PO QHS 06/26/2401/28 History capsule ( DHA) lactobacillus combination no.4 3 3,000 mmu cells PO QD AY 06/26/24 01/28/25 History billion cell capsule (Probiotic) magnesium 200 mg tablet 350 mg PO QDAY 06/26/2401/11 History acetaminophen 500 mg capsule 1,000 mg PO Q6H PRN pain 10/29/24 01/28/25 History nystatin 100,000 unit/gram topical 1 applic topical BI D #30 grams 12/17/24 01/28/25 Rx powder melatonin 3 mg capsule 2 [...] children number of children: 1 current occupation: [employer] current occupational exposures/hazards: No pets and animals: [...] 5-6 times per week duration: 30-45 minutes/day feliciano/samaritan: Buddhist seatbelt use: always do you feel safe at home: Yes additional social history: : 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 OB Visit JANNET Calculator Estimated Delivery Date Method Current WG Current Estimate 01/27/25 LMP (Certain) 40w 1d Expected Delivery Route/Plan Labor Preferences- CB/BF [...] 10w 1d 189 lb (+0 oz) 112/76 -?-?-?-?-?-?-?-?-?-?--?-?- 176 -?-?-?-?-?-?-?-?-?-?-?-?- JV- CRL measures 10 weeks 6 days but still not off by more than 7 days. JANNET is per LMP 01/27/25. Desires nipt. was delivered in [facility] last . had retained placenta and D&C [...] 6 oz) 100/63 Negative -?-?-?-?-?-?-?-?-?-?-?-?- Negative 150 -?-?-?-?-?-?-?-?-?-?--?-?- SM- no vb lof go od fm some ijeoma seaman. 10/22/24 -?-?-?-?-?-?-?-?-?-?-?-?- 26w 1d 209 lb 2 oz (+20 lb 2 oz) 98/66 Negative -?-?-?-?-?-?-?-?-?-?-?-?- Negative 143 26 -?-?-?-?-?-?-?-?-?-?-?-?- MH-No VB. Ezra Porter. Rash comes and goes under breasts, nystatin sent. [facility] 28 wk labs pending 11/06/24 -?-?-?-?-?-?-?-?-?-?-?-?- 28w 2d 214 lb 2 oz (+25 lb 2 oz) 103/51 Negative -?-?-?-?-?-?-?-?-?-?-?-?- Negative 145 29 -?-?-?-?-?-?-?-?-?-?-?-?- KW- no vb/lof. B H ctx becoming more regular- every 3-4 days. increased stress with husbands health concerns and notices a correlation. ezra fm. Tdap today 12/03/24 -?-?-?-?-?-?-?-?-?-?-?-?- 32w 1d 215 lb (+26 lb) 127/86 Negative -?-?-?-?-?-?-?-?-?-?-?-?- Negative 164 32 Cephalic -?-?-?-?-?-?-?-?-?-?-?-?- JV- lots of ques tions about h/o retained placenta. states would appreciate a physician at delivery . 12/17/24 -?-?-?-?-?-?-?-?-?-?-?-?- 34w 1d 214 lb 4 oz (+25 lb 4 oz) 104/80 Negative -?-?-?-?-?-?-?-?-?-?-?-?- Negative 154 34 Cephalic -?-?-?-?-?-?-?-?-?-?-?-?- -NO VB. Ezra Gan [place]. [facility] ctx. 12/31/24 -?-?-?-?-?-?-?-?-?-?-?-?- 36w 1d 213 lb 2 oz (+24 lb 2 oz) 99/68 Negative -?-?-?-?-?-?-?-?-?-?-?-?- Negative 145 36 Cephalic 2 .5 -?-?-?-?-?-?-?-?-?-?-?-?- 30 -3 KW- no vb/ lof/ctx. good fm. GBS today. increased heart burn and recommended pepcid. chiropractor for hip pain 01/07/25 -?-?-?-?-?-?-?-?-?-?-?-?- 37w 1d 215 lb 2 oz (+26 lb 2 oz) 119/78 Negative -?--?-?-?-?-?-?-?-?-?-?-?- Negative 145 38 Cephalic 3 -?-?-?-?-?-?-?-?-?-?-?-?- 40 -3 KW- no vb/ lof. some regular contractions on and off. good fm 01/15/25 -?-?-?-?-?-?-?-?-?-?-?-?- 38w 2d 213 lb 8 oz (+24 lb 8 oz) 121/76 Negative -?-?-?-?-?-?-?-?-?-?-?-?- Negative 140 38 Cephalic 3 -?-?-?-?-?-?-?-?-?-?-?-?- 40 -3 ALYX ESCAMILLA is undergoing BCG immunotherapy for bladder cancer and chemotherapy and she wonders if safe to be around him. After researching it appears safe as long as no exposure to bodily fluids. wants to do accu puncture next week. 01/21/25 -?-?-?-?-?-?-?-?-?-?-?-?- 39w 1d 214 lb (+25 lb) 116/81 Negative -?-?-?-?-?-?-?-?-?-?-?-?- Negative 140 39 Cephalic 3 -?-?-?-?-?-?-?-?-?-?-?-?- 40 -2 SM- no vb quesitonable lof good fm n oreuglar ctx 01/28/25 -?-?-?-?-?-?-?-?-?-?-?-?- 40w 1d 216 lb (+27 lb) 118/65 Negative -?-?-?-?-?-?-?-?-?-?-?-?- Negative 140 40 Cephalic 4 -?-?-?-?-?-?-?-?-?-?-?-?- 70 -2 KW- no vb/ lof/ctx. good fm IOL set up. Prefers a physician for delivery do to hx of retained placenta. ACOG First Trimester First Trimester: Discussed Second [...] Negative Last Edit by Jennifer Alan on 01/28/25 10:39 Office Urine Protein Negative Last Edit by Jennifer Alan on 01/28/25 10:39 Coding Level of Care Code OB Routine Diagnoses History of retained placenta Z87.59 Obesity affecting in second trimester, unspecified obesity type O99.212 Obesity type affecting : unspecified obesity Trimester: second trimester Supervision of high risk in third trimester O09.93 Trimester: third trimester 40 weeks gestation of Z3A.40 Weeks of gestation: 40 weeks Family history of spina bifida Z82.79 [...] : Status: Acute Qualifiers: Weeks of gestation: 40 weeks Qualified Code(s): Z3A.40 - 40 weeks gestation of Comment: GBS neg, NIPT low risk, carrier negative in first [...] Orders POC Urinalysis 2 Dip (Clinic) Today Plan Details Additional Comments: ACOG trimester education reviewed and updated. see problem list details for updated plan management information and see below for orders placed at this visit. GA appropriate handout given. 01/28/25 1107 <Electronically signed by Gonzalez gomez CNM> Date _ Gonzalez Dunne CNM Cosigner Signature: Date (if applicable) CC: ~ [facility] Work Phone: Reason for referral (narrative)No reason for referral information availableW[facility] Phone: Discharge Instructions * Attachments The following attachments cannot be sent through Care Everywhere. * Back: Preventing Injuries (Citizen Of [place]) documented in this encounter Assessments Diagnosis Strain of lumbar region, initial encounter- Primary Summary Purpose Family History No Family History Records Found Relationship Condition Age at Onset Recorded Date/T kaye grandmother Malignant neoplasm of breast Unknown grandfather Malignant neoplasm Unknown aunt Malignant neoplasm Unknown Relationship Condition Age at Onset Recorded Date/T kaye grandmother Malignant neoplasm of breast Unknown grandfather Malignant neoplasm Unknown aunt Malignant neoplasm Unknown grandmother Cardiac disease Unknown Myocardial infarction Unknown grandfather Renal failure Unknown father Prediabetes Unknown Advance Directives No Advanced Directives Records Found Advance Directive Response Recorded Date/ Time Living Will Yes July 21 7:48pm Do you have a Healthcare Power of Cae Engineer? 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 NEED ORDER Reason for Visit Migraine with aura Encounter for routine gynecological examination Care and examination of lactating mother Nipple pain Chief Complaint Admit Date Amb Documentation June 26, 2024 8 :24am NEW OB LMP /10 July 02, 2024 9 :54am palpitations July 21, [...] 2024 9 :54am Supervision of high-risk Janua 2024 9:54am Asthma July 30, 2024 1:08pm Family history of spina bifida July 30, 2024 1:08pm History of eating disorder July 1:08pm Migraine with aura July 30, 2024 1:08pm Obesity affecting July 1:08pm July 30, 2024 1:08pm Supervision of high-risk Febru ingrid 2024 1:08pm Asthma August 27, 2024 2:2 0pm Family history of spina bifida August 2:20pm History of eating disorder August 27 2:20pm Migraine with aura August 27, 2024 [...] 30, 2024 1:08pm Supervision of high-risk Febru [email or web address] 1:08pm Asthma August 27, 2024 2:2 0pm [...] 8:27am History of retained placenta November 19 8:27am Obesity affecting November 19 8:27am November [...] 8:27am History of retained placenta November 19, 8:27am Obesity affecting November 19 8:27am November 19, 2024 8:27a m Supervision of high-risk November 19, 2024 8:27am Asthma December 03, 2024 9:09 am Family history of spina bifida November 9:09am History of eating disorder December 03 9:09am History of retained placenta December 03, 2024 9:09am Migraine with aura December 03, 2024 9:09 am Obesity affecting December 03, 9:09am December 03, 2024 9:09 am Supervision [...] 2024 9:09 am Obesity affecting December 03, 2 025 9:09am December 03, 2024 9:09 am [...] 25, 2024 1:50 pm Obesity affecting December 25, 025 1:50pm December 25, 2024 1:50 pm Supervision of high-risk December 25, 2024 1:50pm Asthma December 31, 2024 9:37 am Family history of spina bifida December 9:37am History of eating disorder December 31 9:37am History of retained placenta December 31, 2024 9:37am Migraine with aura December 31, 2024 9:37 am Obesity affecting December 31, 025 9:37am December 31, 2024 9:37 am Supervision of high-risk December 31, 2024 9:37am Chief Complaint Admit Date wk ob September 24, 2024 8:5 2am [...] 2024 9:37 am VISIT December 31 10:25am Chief Complaint Admit Date k ob September 24, 2024 8:5 2am 1 [...] 2024 9:37 am VISIT December 31 10:25am 37 wk ob January 07, 2025 11:2 5am Reason for Visit Admit Date Asthma September [...] 9:29am History of retained placenta December 17 9:29am Migraine with aura December 17, 2024 [...] Supervision of high-risk December 31, 2024 9:37am Asthma January 07, 2025 11:2 5am Family history of spina bifida December 11:25am History of eating disorder January 07 11:25am History of retained placenta January 07, 2025 11:25am Migraine with aura January 07, 2025 11:2 5am Obesity affecting January 07 11:25am January 07, 2025 11:2 5am Supervision of high-risk January 07, 2025 11:25am Chief Complaint Admit Date 22wk ob September [...] 2024 9:37 am VISIT December 31 10:25am 37 wk ob January 07, 2025 11:2 5am 38 wk ob January 15, 2025 2:0 0pm Reason for Visit Admit Date Asthma September 24, 2024 8:5 2am Family history of spina bifida September 8:52am History of eating disorder September 24, 8:52am Migraine with aura September 24, 2024 [...] November 19 8:27am History of retained placenta Bella 9th, 2 025 8:27am Obesity affecting November 19 8:27am November 19, 2024 8:27a m Supervision of high-risk November 19, 2024 8:27am Asthma December 03, 2024 9:09 am Family history of spina bifida November 9:09am History of eating disorder December 03 9:09am History of retained placenta December 03, 2024 9:09am Migraine with aura December 03, 2024 9:09 am Obesity affecting December 03, 2 025 9:09am December 03, 2024 9:09 am Supervision of high-risk December 03, 2024 9:09am Asthma December 17, 2024 9:29a m Family history of spina bifida December 17, 2024 9:29am History of eating disorder December 17 9:29am History of retained placenta December 17 9:29am Migraine with aura December 17, 2024 [...] 2024 1:50 pm Obesity affecting December 25 025 1:50pm December 25, 2024 1:50 pm Supervision of high-risk December 25, 2024 1:50pm Asthma December 31, 2024 9:37 am Family history of spina bifida December 9:37am History of eating disorder December 31 9:37am History of retained placenta December 31, 2024 9:37am Migraine with aura December 31, 2024 9:37 am Obesity affecting December 31 025 9:37am December 31, 2024 9:37 am Supervision of high-risk December 31, 2024 9:37am Asthma January 07, 2025 11:2 5am Family history of spina bifida December 11:25am History of eating disorder January 07 11:25am History of retained placenta January 07, 2025 11:25am Migraine with aura January 07, 2025 11:2 5am Obesity affecting January 07, 025 11:25am January 07, 2025 11:2 5am Supervision of high-risk January 07, 2025 11:25am Asthma January 15, 2025 2:0 0pm Family history of spina bifida January 2:00pm History of eating disorder January 15, 2 025 2:00pm History of retained placenta January 15, 2025 2:00pm Migraine with aura January 15, 2025 2:0 0pm Obesity affecting January 15, 2025 2:00pm January 15, 2025 2:0 0pm Supervision of high-risk Augus 2024 2:00pm Chief Complaint Admit Date 22wk ob September [...] 2024 9:37 am VISIT December 31 10:25am 37 wk ob January 07, 2025 11:2 5am 38 wk ob January 15, 2025 2:0 0pm 39 wk ob January 21, 2025 1: 55pm Reason for Visit Admit Date Asthma September [...] 2024 9:09 am Obesity affecting December 03, 9:09am December 03, 2024 9:09 am Supervision [...] 25, 2024 1:50 pm Obesity affecting December 25, 2 025 1:50pm December 25, 2024 1:50 pm Supervision of high-risk December 25, 2024 1:50pm Asthma December 31, 2024 9:37 am Family history of spina bifida December 9:37am History of eating disorder December 31 9:37am History of retained placenta December 31, 2024 9:37am Migraine with aura December 31, 2024 9:37 am Obesity affecting December 31, 025 9:37am December 31, 2024 9:37 am Supervision of high-risk December 31, 2024 9:37am Asthma January 07, 2025 11:2 5am Family history of spina bifida December 11:25am History of eating disorder January 07 11:25am History of retained placenta January 07, 2025 11:25am Migraine with aura January 07, 2025 11:2 5am Obesity affecting January 07, 025 11:25am January 07, 2025 11:2 5am Supervision of high-risk January 07, 2025 11:25am Asthma January 15, 2025 2:0 0pm Family history of spina bifida January 2:00pm History of eating disorder January 15, 2 025 2:00pm History of retained placenta January 15, 2025 2:00pm Migraine with aura January 15, 2025 2:0 0pm Obesity affecting January 15, 2025 2:00pm January 15, 2025 2:0 0pm Supervision of high-risk Augus 2024 2:00pm Asthma January 21, 2025 1: 55pm Family history of spina bifida January 212024 1:55pm History of eating disorder January 21, 2025 1:55pm History of retained placenta January 1:55pm Migraine with aura January 21, 2025 1: 55pm Obesity affecting January 21, 2025 1:55pm January 21, 2025 1: 55pm Supervision of high-risk Augus t 2024 1:55pm Chief Complaint Admit Date 1 HOUR GLUCOSE October 22, 2024 12:24 [...] 2024 9:37 am VISIT December 31 10:25am 37 wk ob January 07, 2025 11:2 5am 38 wk ob January 15, 2025 2:0 0pm 39 wk ob January 21, 2025 1: 55pm Reason for Visit Admit Date Asthma October 22, 2024 12:37 pm Family [...] 25, 2024 1:50 pm Obesity affecting December 25, 025 1:50pm December 25, 2024 1:50 pm Supervision of high-risk December 25, 2024 1:50pm Asthma December 31, 2024 9:37 am Family history of spina bifida December 9:37am History of eating disorder December 31 9:37am History of retained placenta December 31, 2024 9:37am Migraine with aura December 31, 2024 9:37 am Obesity affecting December 31, 2 025 9:37am December 31, 2024 9:37 am Supervision of high-risk December 31, 2024 9:37am Asthma January 07, 2025 11:2 5am Family history of spina bifida December 11:25am History of eating disorder January 07 11:25am History of retained placenta January 07, 2025 11:25am Migraine with aura January 07, 2025 11:2 5am Obesity affecting January 07, 025 11:25am January 07, 2025 11:2 5am Supervision of high-risk January 07, 2025 11:25am Asthma January 15, 2025 2:0 0pm Family history of spina bifida January 2:00pm History of eating disorder January 15, 025 2:00pm History of retained placenta January 15, 2025 2:00pm Migraine with aura January 15, 2025 2:0 0pm Obesity affecting January 15, 2025 2:00pm January 15, 2025 2:0 0pm Supervision of high-risk Augus t 2024 2:00pm Asthma January 21, 2025 1: 55pm Family history of spina bifida January 212024 1:55pm History of eating disorder January 21, 2025 1:55pm History of retained placenta January 1:55pm Migraine with aura January 21, 2025 1: 55pm Obesity affecting January 21, 2025 1:55pm January 21, 2025 1: 55pm Supervision of high-risk Augus t 2024 1:55pm Chief Complaint Admit Date 1 HOUR GLUCOSE October 22, 2024 12:24 [...] 2024 9:37 am VISIT December 31 10:25am 37 wk ob January 07, 2025 11:2 5am 38 wk ob January 15, 2025 2:0 0pm 39 wk ob January 21, 2025 1: 55pm 40wk ob *JANNET 01/27January 28, 2025 10 :25am Reason for Visit Admit Date Asthma October 22, 2024 12:37 pm Family [...] 2024 1:50 pm Obesity affecting December 25 025 1:50pm December 25, 2024 1:50 pm Supervision of high-risk December 25, 2024 1:50pm Asthma December 31, 2024 9:37 am Family history of spina bifida December 9:37am History of eating disorder December 31 9:37am History of retained placenta December 31, 2024 9:37am Migraine with aura December 31, 2024 9:37 am Obesity affecting December 31, 025 9:37am December 31, 2024 9:37 am Supervision of high-risk December 31, 2024 9:37am Asthma January 07, 2025 11:2 5am Family history of spina bifida December 11:25am History of eating disorder January 07 11:25am History of retained placenta January 07, 2025 11:25am Migraine with aura January 07, 2025 11:2 5am Obesity affecting January 07, 025 11:25am January 07, 2025 11:2 5am Supervision of high-risk January 07, 2025 11:25am Asthma January 15, 2025 2:0 0pm Family history of spina bifida January 2:00pm History of eating disorder January 15, 2 025 2:00pm History of retained placenta January 15, 2025 2:00pm Migraine with aura January 15, 2025 2:0 0pm Obesity affecting January 15, 2025 2:00pm January 15, 2025 2:0 0pm Supervision of high-risk Augus t 2024 2:00pm Asthma January 21, 2025 1: 55pm Family history of spina bifida January 212024 1:55pm History of eating disorder January 21, 2025 1:55pm History of retained placenta January 1:55pm Migraine with aura January 21, 2025 1: 55pm Obesity affecting January 21, 2025 1:55pm January 21, 2025 1: 55pm Supervision of high-risk Augus t 2024 1:55pm Asthma January 28, 2025 10 :25am Family history of spina bifida January 282024 10:25am History of eating disorder January 28, 2025 10:25am History of retained placenta January 10:25am Migraine with aura January 28, 2025 10 :25am Obesity affecting January 28, 2025 10:25am January 28, 2025 10 :25am Supervision of high-risk Augus t 2024 10:25am Additional Source Comments Reason for Visit (unrecogniz ed section and content) Reason Comments Back Pain Specialty Diagnoses / Procedures Referred By Anabel resendiz Referred To Contact Diagnoses Epistaxis Epistaxis [R04.0] Procedures MS CONTROL NASAL HEMORRHAGE ANTERIOR COMPLEX LEFT CONTROL OF ANTERIOR NASAL HEMORRHAGE, COMPLEX Radha Scott, DO [address] [place] [address] [facility] Main Or [address] [place] [address] Referral ID Status Reason Start Date Expiration Date Visits Re quested Visits Authorized [id number] 1 1 INFORMATION SOURCE (unrecogn ized section and content) DATE CREATED AUTHOR 09/06/2019 [employer] [facility] [employer] DATE CREATED AUTHOR AUTHOR'S ORGANIZ ATION 12/31/2019 [facility] [place] DATE CREATED AUTHOR AUTHOR'S ORGANIZ ATION 09/30/2023 [facility] DATE CREATED AUTHOR AUTHOR'S ORGANIZ ATION 12/11/2023 [facility] ([place]) DATE CREATED AUTHOR AUTHOR'S ORGANIZ ATION 09/08/2024 [facility] DATE CREATED AUTHOR AUTHOR'S ORGANIZ ATION 01/29/2025 [facility] Care Team (unrecognized sect ion and content) Personnel Name: JENNIFFER PEREA Address: Address: [address] [place] [address]- [place] Care Team Personnel Name: JENNIFFER PEREAEMPLOYEE'S REPRESENTATIVE Position: P4 Advanced Practice Nurse Med Service: Active Provider Member Role: Primary Care Physician Address: Address: [address] [place] [address]- Care Team Related Persons Name: NORY RAMÍREZ Address: Home [address] [place], [place] [id number] [place] Name: NORY RAMÍREZ Address: Home [id number] [place] [id number] Care Team Personnel Name: JENNIFFER PEREA APRN-EMPLOYEE'S REPRESENTATIVE Position: P4 Advanced Practice Nurse Member Role: Primary Care Physician Address: Address: [address] [place] [address] [place] Care Team Related Persons Name: FABRIZIO BROWN Address: Home [address] [place] [address] Care Team Personnel Name: JENNIFFER PEREAEMPLOYEE'S REPRESENTATIVE Position: P4 Advanced Practice Nurse Member Role: Primary Care Physician Address: Address: [address] [place] [address] [place] Care Team Related Persons Name: FABRIZIO BROWN Address: Home [address] [place] [address] Care Team Personnel Name: JENNIFFER PEREA APRN-EMPLOYEE'S REPRESENTATIVE Position: P4 Advanced Practice Nurse Member Role: Primary Care Physician Address: Address: [address] [place] [address]- Care Team Related Persons Name: FABRIZIO BROWN Address: Home [address] [place], [place] [id number] Care Team Personnel Name: JENNIFFER PEREA APRN-EMPLOYEE'S REPRESENTATIVE Position: P4 Advanced Practice Nurse Member Role: Primary Care Physician Address: Address: [address] [facility] [place], [place] [address] Care Team Related Persons Name: FABRIZIO BROWN Address: Home [address] [place], [place] [id number] Patient Care team informatio n (unrecognized section and content) Team Status: Active Member Role Status Dates Jenniffer Perea PERSONNEL ADVISER, PERSONNEL ADVISER-C Primary Care Provider Active Team Status: Inactive Member Role Status Dates Jenniffer Perea NP, PERSONNEL ADVISER-C Primary Care Provider Active Start: July 02, 2024 End: July 02, 2024 Jenniffer Perea NP, PERSONNEL ADVISER-C Referring Provider Active Start: July 02, 2024 End: July 02, 2024 Dr. Lashay Fields DO Attending Provider Activ e Start: July 02, 2024 End: July 02, 2024 Team Status: Inactive Member Role Status Dates Jenniffer Perea NP, PERSONNEL ADVISER-C Primary Care Provider Active Start: July 02, 2024 End: July 02, 2024 Dr. Lashay Fields DO Attending Provider Activ e Start: July 02, 2024 End: July 02, 2024 Dr. Lashay Fields DO Referring Provider Activ e Start: July 02, 2024 End: July 02, 2024 Team Status: Inactive Member Role Status Dates Jenniffer Perea NP, PERSONNEL ADVISER-C Primary Care Provider Active Start: July 21, 2024 End: July 21, 2024 Aashish Thomas MD Attending Provider Active Star t: July 21, 2024 End: July 21, 2024 Aashish Thomas MD Emergency Provider Active Star t: July 21, 2024 End: July 21, 2024 Team Status: Inactive Member Role Status Dates Jenniffer Perea NP, PERSONNEL ADVISER-C Primary Care Provider Active Start: July 30, 2024 End: July 30, 2024 Jenniffer Perea NP, PERSONNEL ADVISER-C Referring Provider Active Start: July 30, 2024 End: July 30, 2024 Gonzalez Dunne CNM Attending Provider Active S tart: July 30, 2024 End: July 30, 2024 Team Status: Inactive Member Role Status Dates Jenniffer Perea NP, PERSONNEL ADVISER-C Primary Care Provider Active Start: August 27, 2024 End: August 27, 2024 Jenniffer Perea NP, PERSONNEL ADVISER-C Referring Provider Active Start: August 27, 2024 End: August 27, 2024 Dr. Lashay Fields DO Attending Provider Activ e Start: August 27, 2024 End: August 27, 2024 Team Status: Inactive Member Role Status Dates Jenniffer Perea PERSONNEL ADVISER, PERSONNEL ADVISER-C Primary Care Provider Active Start: September 24, 2024 End: September 24, 2024 Jenniffer Perea PERSONNEL ADVISER, PERSONNEL ADVISER-C Referring Provider Active Start: September 24, 2024 End: September 24, 2024 Dr. Sophia Ellison MD Attending Provider Active Start: September 24, 2024 End: September 24, 2024 Team Status: Inactive Member Role Status Dates Jenniffer Perea PERSONNEL ADVISER, PERSONNEL ADVISER-C Primary Care Provider Active Start: October 22, 2024 End: October 22, 2024 Dr. Sophia Elliosn MD Attending Provider Active Start: October 22, 2024 End: October 22, 2024 Dr. Sophia Ellison MD Referring Provider Active Start: October 22, 2024 End: October 22, 2024 Team Status: Inactive Member Role Status Dates Jenniffer Perea PERSONNEL ADVISER, PERSONNEL ADVISER-C Primary Care Provider Active Start: October 22, 2024 End: October 22, 2024 Jenniffer Perea PERSONNEL ADVISER, PERSONNEL ADVISER-C Referring Provider Active Start: October 22, 2024 End: October 22, 2024 Malathi Magdaleno PERSONNEL ADVISER, PERSONNEL ADVISER-C Attending Provider Active Start: October 22, 2024 End: October 22, 2024 Team Status: Inactive Member Role Status Dates Jenniffer Perea PERSONNEL ADVISER, PERSONNEL ADVISER-C Primary Care Provider Active Start: October 28, 2024 End: October 29, 2024 Dr. 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 Relationship Specialty Start Date End Date Jenniffer Perea [address] [place] [id number] PCP - General Nurse Practitioner Family 09/29/23 Team Status: Inactive Member Role Status Dates Jenniffer Perea PERSONNEL ADVISER, PERSONNEL ADVISER-C Primary Care Provider, Referri ng Provider Active Malathi Magdaleno PERSONNEL ADVISER, PERSONNEL ADVISER-C Attending Provider Active Team Status: Inactive Member Role Status Dates Jenniffer Perea PERSONNEL ADVISER, PERSONNEL ADVISER-C Primary Care Provider, Referri ng Provider Active Kristi Mathur PERSONNEL ADVISER, PERSONNEL ADVISER-C Attending Provider Active Team Status: Inactive Member Role Status Dates Jenniffer Perea PERSONNEL ADVISER, PERSONNEL ADVISER-C Primary Care Provider Active Malathi Magdaleno PERSONNEL ADVISER, PERSONNEL ADVISER-C Attending Provider, Referring Provider Active Team Status: Active Member Role Status Dates Jenniffer Perea PERSONNEL ADVISER, PERSONNEL ADVISER-C Primary Care Provider Active Start: October 29, 2024 Dr. Sophia Ellison MD Attending Provider Active Start: October 29, 2024 Dr. Sophia Ellison MD Other Provider Active Start: October 29, 2024 Team Status: Inactive Member Role Status Dates Jenniffer Perea NP, PERSONNEL ADVISER-C Primary Care Provider Active Start: November 06, 2024 End: November 06, 2024 Jenniffer Perea NP, PERSONNEL ADVISER-C Referring Provider Active Start: November 06, 2024 End: November 06, 2024 Gonzalez Dunne CNM Attending Provider Active S tart: November 06, 2024 End: November 06, 2024 Team Status: Inactive Member Role Status Dates Jenniffer Perea NP, PERSONNEL ADVISER-C Primary Care Provider Active Start: October 28, 2024 End: October 29, 2024 Dr. Sophia Ellison MD Attending Provider Active Start: October 28, 2024 End: October 29, 2024 Dr. Sophia Ellison MD Referring Provider Active Start: October 28, 2024 End: October 29, 2024 Team Status: Inactive Member Role Status Dates Jenniffer Perea NP, PERSONNEL ADVISER-C Primary Care Provider Active Start: November 19, 2024 End: November 19, 2024 Jenniffer Perea NP, PERSONNEL ADVISER-C Referring Provider Active Start: November 19, 2024 End: November 19, 2024 Malathi Magdaleno PERSONNEL ADVISER, PERSONNEL ADVISER-C Attending Provider Active Start: November 19, 2024 End: November 19, 2024 Team Status: Inactive Member Role Status Dates Jenniffer Perea NP, PERSONNEL ADVISER-C Primary Care Provider Active Start: December 03, 2024 End: December 03, 2024 Jenniffer Perea PERSONNEL ADVISER, PERSONNEL ADVISER-C Referring Provider Active Start: December 03, 2024 End: December 03, 2024 Dr. Lashay Fields DO Attending Provider Activ e Start: December 03, 2024 End: December 03, 2024 Team Status: Active Member Role/Relationship Status Dates Jenniffer Perea PERSONNEL ADVISER, PERSONNEL ADVISER-C Primary Care Provider Active Team Status: Inactive Member Role/Relationship Status Dates Jenniffer Perea PERSONNEL ADVISER, PERSONNEL ADVISER-C Primary Care Provider Active Start: August 27, 2024 End: August 27, 2024 Jenniffer Perea PERSONNEL ADVISER, PERSONNEL ADVISER-C Referring Provider Active Start: August 27, 2024 End: August 27, 2024 Dr. Lashay Fields DO Attending Provider Activ e Start: August 27, 2024 End: August 27, 2024 Team Status: Inactive Member Role/Relationship Status Dates Jenniffer Perea PERSONNEL ADVISER, PERSONNEL ADVISER-C Primary Care Provider Active Start: September 24, 2024 End: September 24, 2024 Jenniffer Perea PERSONNEL ADVISER, PERSONNEL ADVISER-C Referring Provider Active Start: September 24, 2024 End: September 24, 2024 Dr. Sophia Ellison MD Attending Provider Active Start: September 24, 2024 End: September 24, 2024 Team Status: Inactive Member Role/Relationship Status Dates Jenniffer Perea PERSONNEL ADVISER, PERSONNEL ADVISER-C Primary Care Provider Active Start: October 22, 2024 End: October 22, 2024 Dr. Sophia Ellison MD Attending Provider Active Start: October 22, 2024 End: October 22, 2024 Dr. Sophia Ellison MD Referring Provider Active Start: October 22, 2024 End: October 22, 2024 Team Status: Inactive Member Role/Relationship Status Dates Jenniffer Perea PERSONNEL ADVISER, PERSONNEL ADVISER-C Primary Care Provider Active Start: October 22, 2024 End: October 22, 2024 Jenniffer Perea PERSONNEL ADVISER, PERSONNEL ADVISER-C Referring Provider Active Start: October 22, 2024 End: October 22, 2024 Malathi Magdaleno NP, PERSONNEL ADVISER-C Attending Provider Active Start: October 22, 2024 End: October 22, 2024 Team Status: Inactive Member Role/Relationship Status Dates Jenniffer Perea PERSONNEL ADVISER, PERSONNEL ADVISER-C Primary Care Provider Active Start: October 28, 2024 End: October 29, 2024 Dr. Sophia Ellison MD Attending Provider Active Start: October 28, 2024 End: October 29, 2024 Dr. Sophia Ellison MD Referring Provider Active Start: October 28, 2024 End: October 29, 2024 Team Status: Active Member Role/Relationship Status Dates Jenniffer Perea PERSONNEL ADVISER, PERSONNEL ADVISER-C Primary Care Provider Active Start: October 29, 2024 Dr. Sophia Ellison MD Attending Provider Active Start: October 29, 2024 Dr. Sophia Ellison MD Other Provider Active Start: October 29, 2024 Team Status: Inactive Member Role/Relationship Status Dates Jenniffer Perea PERSONNEL ADVISER, PERSONNEL ADVISER-C Primary Care Provider Active Start: November 06, 2024 End: November 06, 2024 Jenniffer Perea PERSONNEL ADVISER, PERSONNEL ADVISER-C Referring Provider Active Start: November 06, 2024 End: November 06, 2024 Gonzalez Dunne CNM Attending Provider Active S tart: November 06, 2024 End: November 06, 2024 Team Status: Inactive Member Role/Relationship Status Dates Jenniffer Perea PERSONNEL ADVISER, PERSONNEL ADVISER-C Primary Care Provider Active Start: November 19, 2024 End: November 19, 2024 Jenniffer Perea PERSONNEL ADVISER, PERSONNEL ADVISER-C Referring Provider Active Start: November 19, 2024 End: November 19, 2024 Malathi Magdaleno PERSONNEL ADVISER, PERSONNEL ADVISER-C Attending Provider Active Start: November 19, 2024 End: November 19, 2024 Team Status: Inactive Member Role/Relationship Status Dates Jenniffer Perea PERSONNEL ADVISER, PERSONNEL ADVISER-C Primary Care Provider Active Start: December 03, 2024 End: December 03, 2024 Jenniffer Perea PERSONNEL ADVISER, PERSONNEL ADVISER-C Referring Provider Active Start: December 03, 2024 End: December 03, 2024 Dr. Lashay Fields DO Attending Provider Activ e Start: December 03, 2024 End: December 03, 2024 Team Status: Inactive Member Role/Relationship Status Dates Jenniffer Perea PERSONNEL ADVISER, PERSONNEL ADVISER-C Primary Care Provider Active Start: December 13, 2024 End: December 13, 2024 Dr. Sophia Ellison MD Attending Provider Active Start: December 13, 2024 End: December 13, 2024 Dr. Sophia Ellison MD Referring Provider Active Start: December 13, 2024 End: December 13, 2024 Team Status: Active Member Role/Relationship Status Dates Jenniffer Perea PERSONNEL ADVISER, PERSONNEL ADVISER-C Primary Care Provider Active Start: December 13, 2024 Dr. Sophia Ellison MD Attending Provider Active Start: December 13, 2024 Dr. Sophia Ellison MD Referring Provider Active Start: December 13, 2024 Dr. Sophia Ellison MD Other Provider Active Start: December 13, 2024 Team Status: Inactive Member Role/Relationship Status Dates Jenniffer Perea PERSONNEL ADVISER, PERSONNEL ADVISER-C Primary Care Provider Active Start: December 17, 2024 End: December 17, 2024 Jenniffer Perea PERSONNEL ADVISER, PERSONNEL ADVISER-C Referring Provider Active Start: December 17, 2024 End: December 17, 2024 Malathi Magdaleno PERSONNEL ADVISER, PERSONNEL ADVISER-C Attending Provider Active Start: December 17, 2024 End: December 17, 2024 Team Status: Inactive Member Role/Relationship Status Dates Jenniffer Perea PERSONNEL ADVISER, PERSONNEL ADVISER-C Primary Care Provider Active Start: December 25, 2024 End: December 25, 2024 Dr. Lashay Fields DO Attending Provider Activ e Start: December 25, 2024 End: December 25, 2024 Dr. Lashay Fields DO Referring Provider Activ e Start: December 25, 2024 End: December 25, 2024 Team Status: Inactive Member Role/Relationship Status Dates Jenniffer Perea PERSONNEL ADVISER, PERSONNEL ADVISER-C Primary Care Provider Active Start: September 24, 2024 End: September 24, 2024 Jenniffer Perea PERSONNEL ADVISER, PERSONNEL ADVISER-C Referring Provider Active Start: September 24, 2024 End: September 24, 2024 Dr. Sophia Ellison MD Attending Provider Active Start: September 24, 2024 End: September 24, 2024 Team Status: Inactive Member Role/Relationship Status Dates Jenniffer Perea PERSONNEL ADVISER, PERSONNEL ADVISER-C Primary Care Provider Active Start: October 22, 2024 End: October 22, 2024 Dr. Sophia Ellison MD Attending Provider Active Start: October 22, 2024 End: October 22, 2024 Dr. Sophia Ellison MD Referring Provider Active Start: October 22, 2024 End: October 22, 2024 Team Status: Inactive Member Role/Relationship Status Dates Jenniffer Perea PERSONNEL ADVISER, PERSONNEL ADVISER-C Primary Care Provider Active Start: October 22, 2024 End: October 22, 2024 Jenniffer Perea PERSONNEL ADVISER, PERSONNEL ADVISER-C Referring Provider Active Start: October 22, 2024 End: October 22, 2024 Malathi Magdaleno PERSONNEL ADVISER, PERSONNEL ADVISER-C Attending Provider Active Start: October 22, 2024 End: October 22, 2024 Team Status: Inactive Member Role/Relationship Status Dates eJnniffer Perea PERSONNEL ADVISER, PERSONNEL ADVISER-C Primary Care Provider Active Start: October 28, 2024 End: October 29, 2024 Dr. Sophia Ellison MD Attending Provider Active Start: October 28, 2024 End: October 29, 2024 Dr. Sophia Ellison MD Referring Provider Active Start: October 28, 2024 End: October 29, 2024 Team Status: Active Member Role/Relationship Status Dates Jenniffer Perea PERSONNEL ADVISER, PERSONNEL ADVISER-C Primary Care Provider Active Start: October 29, 2024 Dr. Sophia Ellison MD Attending Provider Active Start: October 29, 2024 Dr. Sophia Ellison MD Other Provider Active Start: October 29, 2024 Team Status: Inactive Member Role/Relationship Status Dates Jenniffer Perea PERSONNEL ADVISER, PERSONNEL ADVISER-C Primary Care Provider Active Start: November 06, 2024 End: November 06, 2024 Jenniffer Perea PERSONNEL ADVISER, PERSONNEL ADVISER-C Referring Provider Active Start: November 06, 2024 End: November 06, 2024 Gonzalez Dunne CNM Attending Provider Active S tart: November 06, 2024 End: November 06, 2024 Team Status: Inactive Member Role/Relationship Status Dates Jenniffer Perea PERSONNEL ADVISER, PERSONNEL ADVISER-C Primary Care Provider Active Start: November 19, 2024 End: November 19, 2024 Jenniffer Perea PERSONNEL ADVISER, PERSONNEL ADVISER-C Referring Provider Active Start: November 19, 2024 End: November 19, 2024 Malathi Magdaleno PERSONNEL ADVISER, PERSONNEL ADVISER-C Attending Provider Active Start: November 19, 2024 End: November 19, 2024 Team Status: Inactive Member Role/Relationship Status Dates Jenniffer Perea PERSONNEL ADVISER, PERSONNEL ADVISER-C Primary Care Provider Active Start: December 03, 2024 End: December 03, 2024 Jenniffer Perea PERSONNEL ADVISER, PERSONNEL ADVISER-C Referring Provider Active Start: December 03, 2024 End: December 03, 2024 Dr. Lashay Fields DO Attending Provider Activ e Start: December 03, 2024 End: December 03, 2024 Team Status: Inactive Member Role/Relationship Status Dates Jenniffer Perea PERSONNEL ADVISER, PERSONNEL ADVISER-C Primary Care Provider Active Start: December 13, 2024 End: December 13, 2024 Dr. Sophia Ellison MD Attending Provider Active Start: December 13, 2024 End: December 13, 2024 Dr. Sophia Ellison MD Referring Provider Active Start: December 13, 2024 End: December 13, 2024 Team Status: Active Member Role/Relationship Status Dates Jenniffer Perea PERSONNEL ADVISER, PERSONNEL ADVISER-C Primary Care Provider Active Start: December 13, 2024 Dr. Sophia Ellison MD Attending Provider Active Start: December 13, 2024 Dr. Sophia Ellison MD Referring Provider Active Start: December 13, 2024 Dr. Sophia Ellison MD Other Provider Active Start: December 13, 2024 Team Status: Inactive Member Role/Relationship Status Dates Jenniffer Perea PERSONNEL ADVISER, PERSONNEL ADVISER-C Primary Care Provider Active Start: December 17, 2024 End: December 17, 2024 Jenniffer Perea PERSONNEL ADVISER, PERSONNEL ADVISER-C Referring Provider Active Start: December 17, 2024 End: December 17, 2024 Malathi Magdaleno PERSONNEL ADVISER, PERSONNEL ADVISER-C Attending Provider Active Start: December 17, 2024 End: December 17, 2024 Team Status: Inactive Member Role/Relationship Status Dates Jenniffer Perea PERSONNEL ADVISER, PERSONNEL ADVISER-C Primary Care Provider Active Start: December 25, 2024 End: December 25, 2024 Dr. Lashay Fields DO Attending Provider Activ e Start: December 25, 2024 End: December 25, 2024 Dr. Lashay Fields DO Referring Provider Activ e Start: December 25, 2024 End: December 25, 2024 Team Status: Active Member Role/Relationship Status Dates Jenniffer Perea PERSONNEL ADVISER, PERSONNEL ADVISER-C Primary Care Provider Active Start: December 25, 2024 Dr. Lashay Fields DO Attending Provider Activ e Start: December 25, 2024 Dr. Lashay Fields DO Referring Provider Activ e Start: December 25, 2024 Dr. Lashay Fields DO Other Provider Active Start: December 25, 2024 Team Status: Inactive Member Role/Relationship Status Dates Jenniffer Perea PERSONNEL ADVISER, PERSONNEL ADVISER-C Primary Care Provider Active Start: December 31, 2024 End: December 31, 2024 Jenniffer Perea PERSONNEL ADVISER, PERSONNEL ADVISER-C Referring Provider Active Start: December 31, 2024 End: December 31, 2024 Gonzalez Dunne CNM Attending Provider Active S tart: December 31, 2024 End: December 31, 2024 Team Status: Inactive Member Role/Relationship Status Dates Jenniffer Perea NP, PERSONNEL ADVISER-C Primary Care Provider Active Start: December 31, 2024 End: December 31, 2024 Gonzalez Dunne CNM Attending Provider Active S tart: December 31, 2024 End: December 31, 2024 Gonzalez Dunne CNM Referring Provider Active S tart: December 31, 2024 End: December 31, 2024 Team Status: Active Member Role/Relationship Status Dates Jenniffer Perea PERSONNEL ADVISER, PERSONNEL ADVISER-C Primary Care Provider Active Start: December 31, 2024 Gonzalez Dunne CNM Attending Provider Active S tart: December 31, 2024 Gonzalez Dunne CNM Referring Provider Active S tart: December 31, 2024 Team Status: Inactive Member Role/Relationship Status Dates Jenniffer Perea PERSONNEL ADVISER, PERSONNEL ADVISER-C Primary Care Provider Active Start: December 31, 2024 End: December 31, 2024 Gonzalez Dunne CNM Attending Provider Active S tart: December 31, 2024 End: December 31, 2024 Gonzalez Dunne CNM Referring Provider Active S tart: December 31, 2024 End: December 31, 2024 Team Status: Inactive Member Role/Relationship Status Dates Jenniffer Perea NP, PERSONNEL ADVISER-C Primary Care Provider Active Start: January 07, 2025 End: January 07, 2025 Jenniffer Perea NP, PERSONNEL ADVISER-C Referring Provider Active Start: January 07, 2025 End: January 07, 2025 Gonzalez Dunne CNM Attending Provider Active S tart: January 07, 2025 End: January 07, 2025 Team Status: Inactive Member Role/Relationship Status Dates Jenniffer Perea PERSONNEL ADVISER, PERSONNEL ADVISER-C Primary Care Provider Active Start: January 15, 2025 End: January 15, 2025 Jenniffer Perea PERSONNEL ADVISER, PERSONNEL ADVISER-C Referring Provider Active Start: January 15, 2025 End: January 15, 2025 Dr. Lashay Fields , Attending Provider Activ e Start: January 15, 2025 End: January 15, 2025 Team Status: Inactive Member Role/Relationship Status Dates Jenniffer Perea PERSONNEL ADVISER, PERSONNEL ADVISER-C Primary Care Provider Active Start: January 21, 2025 End: January 21, 2025 Jenniffer Perea PERSONNEL ADVISER, PERSONNEL ADVISER-C Referring Provider Active Start: January 21, 2025 End: January 21, 2025 Dr. Sophia Ellison MD Attending Provider Active Start: January 21, 2025 End: January 21, 2025 Team Status: Inactive Member Role/Relationship Status Dates Jenniffer Perea PERSONNEL ADVISER, PERSONNEL ADVISER-C Primary Care Provider Active Start: October 22, 2024 End: October 22, 2024 Dr. Sophia Ellison MD Attending Provider Active Start: October 22, 2024 End: October 22, 2024 Dr. Sophia Ellison MD Referring Provider Active Start: October 22, 2024 End: October 22, 2024 Team Status: Inactive Member Role/Relationship Status Dates Jenniffer Perea PERSONNEL ADVISER, PERSONNEL ADVISER-C Primary Care Provider Active Start: October 22, 2024 End: October 22, 2024 Jenniffer Perea PERSONNEL ADVISER, PERSONNEL ADVISER-C Referring Provider Active Start: October 22, 2024 End: October 22, 2024 Malathi Magdaleno PERSONNEL ADVISER, PERSONNEL ADVISER-C Attending Provider Active Start: October 22, 2024 End: October 22, 2024 Team Status: Inactive Member Role/Relationship Status Dates Jenniffer Perea NP, PERSONNEL ADVISER-C Primary Care Provider Active Start: October 28, 2024 End: October 29, 2024 Dr. Sophia Ellison MD Attending Provider Active Start: October 28, 2024 End: October 29, 2024 Dr. Sophia Ellison MD Referring Provider Active Start: October 28, 2024 End: October 29, 2024 Team Status: Active Member Role/Relationship Status Dates Jenniffer Perea PERSONNEL ADVISER, PERSONNEL ADVISER-C Primary Care Provider Active Start: October 29, 2024 Dr. Sophia Ellison MD Attending Provider Active Start: October 29, 2024 Dr. Sophia Ellison MD Other Provider Active Start: October 29, 2024 Team Status: Inactive Member Role/Relationship Status Dates Jenniffer Perea PERSONNEL ADVISER, PERSONNEL ADVISER-C Primary Care Provider Active Start: November 06, 2024 End: November 06, 2024 Jenniffer Perea PERSONNEL ADVISER, PERSONNEL ADVISER-C Referring Provider Active Start: November 06, 2024 End: November 06, 2024 Gonzalez Dunne CNM Attending Provider Active S tart: November 06, 2024 End: November 06, 2024 Team Status: Inactive Member Role/Relationship Status Dates Jenniffer Perea PERSONNEL ADVISER, PERSONNEL ADVISER-C Primary Care Provider Active Start: November 19, 2024 End: November 19, 2024 Jenniffer Perea PERSONNEL ADVISER, PERSONNEL ADVISER-C Referring Provider Active Start: November 19, 2024 End: November 19, 2024 Malathi Magdaleno PERSONNEL ADVISER, PERSONNEL ADVISER-C Attending Provider Active Start: November 19, 2024 End: November 19, 2024 Team Status: Inactive Member Role/Relationship Status Dates Jenniffer Perea PERSONNEL ADVISER, PERSONNEL ADVISER-C Primary Care Provider Active Start: December 03, 2024 End: December 03, 2024 Jenniffer Perea PERSONNEL ADVISER, PERSONNEL ADVISER-C Referring Provider Active Start: December 03, 2024 End: December 03, 2024 Dr. Lashay Fields DO Attending Provider Activ e Start: December 03, 2024 End: December 03, 2024 Team Status: Inactive Member Role/Relationship Status Dates Jenniffer Perea PERSONNEL ADVISER, PERSONNEL ADVISER-C Primary Care Provider Active Start: December 13, 2024 End: December 13, 2024 Dr. Sophia Ellison MD Attending Provider Active Start: December 13, 2024 End: December 13, 2024 Dr. Sophia Ellison MD Referring Provider Active Start: December 13, 2024 End: December 13, 2024 Team Status: Active Member Role/Relationship Status Dates Jenniffer Perea NP, PERSONNEL ADVISER-C Primary Care Provider Active Start: December 13, 2024 Dr. Sophia Ellison MD Attending Provider Active Start: December 13, 2024 Dr. Sophia Ellison MD Referring Provider Active Start: December 13, 2024 Dr. Sophia Ellison MD Other Provider Active Start: December 13, 2024 Team Status: Inactive Member Role/Relationship Status Dates Jenniffer Perea PERSONNEL ADVISER, PERSONNEL ADVISER-C Primary Care Provider Active Start: December 17, 2024 End: December 17, 2024 Jenniffer Perea NP, PERSONNEL ADVISER-C Referring Provider Active Start: December 17, 2024 End: December 17, 2024 Malathi Magdaleno PERSONNEL ADVISER, PERSONNEL ADVISER-C Attending Provider Active Start: December 17, 2024 End: December 17, 2024 Team Status: Inactive Member Role/Relationship Status Dates Jenniffer Perea PERSONNEL ADVISER, PERSONNEL ADVISER-C Primary Care Provider Active Start: December 25, 2024 End: December 25, 2024 Dr. Lashay Fields , Attending Provider Activ e Start: December 25, 2024 End: December 25, 2024 Dr. Lashay Fields DO Referring Provider Activ e Start: December 25, 2024 End: December 25, 2024 Team Status: Active Member Role/Relationship Status Dates Jenniffer Perea NP, PERSONNEL ADVISER-C Primary Care Provider Active Start: December 25, 2024 Dr. Lashay Fields DO Attending Provider Activ e Start: December 25, 2024 Dr. Lashay Fields DO Referring Provider Activ e Start: December 25, 2024 Dr. Lashay Fields , Other Provider Active Start: December 25, 2024 Team Status: Inactive Member Role/Relationship Status Dates Jenniffer Perea NP, PERSONNEL ADVISER-C Primary Care Provider Active Start: December 31, 2024 End: December 31, 2024 Jenniffer Perea NP, PERSONNEL ADVISER-C Referring Provider Active Start: December 31, 2024 End: December 31, 2024 Gonzalez Dunne CNM Attending Provider Active S tart: December 31, 2024 End: December 31, 2024 Team Status: Inactive Member Role/Relationship Status Dates Jenniffer Perea NP, PERSONNEL ADVISER-C Primary Care Provider Active Start: December 31, 2024 End: December 31, 2024 Gonzalez Dunne CNM Attending Provider Active S tart: December 31, 2024 End: December 31, 2024 Gonzalez Dunne CNM Referring Provider Active S tart: December 31, 2024 End: December 31, 2024 Team Status: Inactive Member Role/Relationship Status Dates Jenniffer Perea NP, PERSONNEL ADVISER-C Primary Care Provider Active Start: January 07, 2025 End: January 07, 2025 Jenniffer Perea NP, PERSONNEL ADVISER-C Referring Provider Active Start: January 07, 2025 End: January 07, 2025 Gonzalez Dunne CNM Attending Provider Active S tart: January 07, 2025 End: January 07, 2025 Team Status: Inactive Member Role/Relationship Status Dates Jenniffer Perea NP, PERSONNEL ADVISER-C Primary Care Provider Active Start: January 15, 2025 End: January 15, 2025 Jenniffer Perea NP, PERSONNEL ADVISER-C Referring Provider Active Start: January 15, 2025 End: January 15, 2025 Dr. Lashay Fields DO Attending Provider Activ e Start: January 15, 2025 End: January 15, 2025 Team Status: Inactive Member Role/Relationship Status Dates Jenniffer Perea NP, PERSONNEL ADVISER-C Primary Care Provider Active Start: January 21, 2025 End: January 21, 2025 Jenniffer Perea NP, PERSONNEL ADVISER-C Referring Provider Active Start: January 21, 2025 End: January 21, 2025 Dr. Sophia Ellison MD Attending Provider Active Start: January 21, 2025 End: January 21, 2025 Team Status: Inactive Member Role/Relationship Status Dates Jenniffer Perea NP, PERSONNEL ADVISER-C Primary Care Provider Active Start: January 21, 2025 End: January 21, 2025 Dr. Sophia Ellison MD Attending Provider Active Start: January 21, 2025 End: January 21, 2025 Team Status: Inactive Member Role/Relationship Status Dates Jenniffer Perea NP, PERSONNEL ADVISER-C Primary Care Provider Active Start: January 28, 2025 End: January 28, 2025 Jenniffer Perea NP, PERSONNEL ADVISER-C Referring Provider Active Start: January 28, 2025 End: January 28, 2025 Gonzalez Dunne CNM Attending Provider Active S tart: January 28, 2025 End: January 28, 2025 Goals (unrecognized section and content) Goals may [...] Porras [id number] (Continued by Anesthesia - Provider: Aissatou Garcia APRN - ELE)[id number] (Anesthesia Volume Adjustment - Provider: MINOR Walsh [...] taken from different sites, Starting on Margaret 4/18/24 at 1000, For 2 doses, Recovery (only), [...] anxiety or muscle spasm., Starting on Margaret 09/29/23 at 1000, For 1 dose, Recovery (only), For IV doses dilute dose with 1ml NS. meperidine (Demerol) injection 12.5 mg 12.5 mg, IntraVENous, Every 5 min PRN, shivering, Starting on Margaret 09/29/23 at 1000, For 2 doses, Recovery (only), May give every 5 minutes to max of 25mg. Notify Anesthesia Provider before administration. ondansetron (Zofran) injection 4 mg 4 mg, IntraVENous, Once PRN, nausea, Starting on Margaret 09/29/23 at 1000, For [...] 0952 (Given - Provid er: Radha Scott, - Comment: on 1x3 cottoniods) sodium chloride 0.9 % bolus 500 mL 500 mL, IntraVENous, at 1,000 mL/hr, Administer over 0.5 Hours, PRN, Anti-nausea, Starting on Margaret 09/29/23 at 0958, Recovery (only), Indications: Anti-nausea sodium [...] BE BASED ON THE PRIMARY CLINICAL RECORDS. [employer] provides no warranty or guarantee of the accuracy or completeness of information in this document.
--- OUTSIDE RECORDS SUMMARY | 2025-01-30 05:21 | XMS RPT_ITS | CCD ---
Author Organization [facility] [place] [facility] Care Team Providers Care Marble Machine Operator Name Role Phone Unavailable Primary Care Provider Unavailabl e ELIAZAR OXYHYDROGEN WELDER-JENNIFFER MAXWELL Primary Care Physician ELIAZAR NO, JENNIFFER Primary Care Physician Jenniffer Perea Primary Care Provider RADHA SCOTT Attending Unavailable JENNIFFER PEREA Referring Unavailable RADHA SCOTT Admitting Unavailable RADHA SCOTT Attending Unavailable JENNIFFER PEREA Primary Care Unavailable Eliaazr AUTOMOTIVE FLEET SUPERVISOR, AUTOMOTIVE FLEET SUPERVISOR-C Jenniffer Primary Care Provider [phone] Eliazar AUTOMOTIVE FLEET SUPERVISOR, AUTOMOTIVE FLEET SUPERVISOR-C Jenniffer Referring Provider Rasta AUTOMOTIVE FLEET SUPERVISOR, AUTOMOTIVE FLEET SUPERVISOR-C Malathi Attending Provider [phone] Kevan AUTOMOTIVE FLEET SUPERVISOR, AUTOMOTIVE FLEET SUPERVISOR-C Kristi Attending Provider [phone] ELIAZAR OXYHYDROGEN WELDER-ALISSA, [facility] Unavail able JAXSON SANTILLAN Attending Unav ailable ELIAZAR OXYHYDROGEN WELDER-ALISSA, [facility] Unavail able MELISA ULLOA MD Attending Unavailable LORSON OXYHYDROGEN WELDER-CUSTOMS COMPLIANCE DIRECTOR, [place] Primary Care Unavail able LORSON OXYHYDROGEN WELDER-CUSTOMS COMPLIANCE DIRECTOR, JENNIFFER Attending Unavail able LORSON OXYHYDROGEN WELDER-CUSTOMS COMPLIANCE DIRECTOR, [place] Primary Care Unavail able LORSON OXYHYDROGEN WELDER-CUSTOMS COMPLIANCE DIRECTOR, JENNIFFER Attending Unavail able LORSON OXYHYDROGEN WELDER-CUSTOMS COMPLIANCE DIRECTOR, JENNIFFER Attending Unavail able LORSON OXYHYDROGEN WELDER-CUSTOMS COMPLIANCE DIRECTOR, [facility] Care Unavail able DEVAN VILLARREAL Attending Unavailable GONZALEZ DUNNE Referring Unavailable Eliazar AUTOMOTIVE FLEET SUPERVISOR-C, [place] Primary Care Provider Rachel Peña RN Attending Provider Unavailabl e Eliazar AUTOMOTIVE FLEET SUPERVISOR-C, Jenniffer Referring Provider [phone] Dr. Lashay Fields DO Attending Provider Dr. Lashay Fields DO Referring Provider Martha MANRIQUEZ, Aashish Attending Provider Martha MANRIQUEZ, Aashish Emergency Provider Gonzalez Dunne CNM Attending Provider [phone] Scot MANRIQUEZ, Dr. Cortes Attending Provider Dr. Sophia Ellison MD Referring Provider Dysart AUTOMOTIVE FLEET SUPERVISOR-C, Malathi Attending Provider [phone]) Lorson AUTOMOTIVE FLEET SUPERVISOR-C, [place] Primary Care Provider [phone] L[place]on AUTOMOTIVE FLEET SUPERVISOR-C, [place] Primary Care Provider [phone] [place]on AUTOMOTIVE FLEET SUPERVISOR-C, [place] Referring Provider [phone] Dr. Lashay Fields DO Attending Provider Scto MANRIQUEZ, Dr. Cortes Other Provider [phone] Lorson AUTOMOTIVE FLEET SUPERVISOR-C, [place] Primary Care Provider [phone] ) Lorson AUTOMOTIVE FLEET SUPERVISOR-C, [place] Primary Care Provider [phone] [place]on AUTOMOTIVE FLEET SUPERVISOR-C, [place] Referring Provider [phone] Gonzalez Dunne CNM Attending Provider [phone] Dr. Lashay Fields DO Referring Provider L[place]on AUTOMOTIVE FLEET SUPERVISOR-C, [place] Primary Care Provider [phone] ) [place]on AUTOMOTIVE FLEET SUPERVISOR-C, [place] Referring Provider [phone] Dr. Lashay Fields DO Attending Provider Dr. Lashay Fields DO Other Provider [phone] Gonzalez Dunne CNM Referring Provider [phone]) [place]on AUTOMOTIVE FLEET SUPERVISOR-C, [place] Primary Care Provider [phone] Dr. Sophia Ellison MD Attending Provider [place]on AUTOMOTIVE FLEET SUPERVISOR-C, [place] Referring Provider [phone] Sophia Ellison Attending Unavailable [place]on AUTOMOTIVE FLEET SUPERVISOR, [place] Primary Care Unavailable Sophia Ellison Referring Unavailable Sophia Ellison Attending Unavailable [place] AUTOMOTIVE FLEET SUPERVISOR, [facility] Unavailable Rachel Peña Attending Unavailable [place] AUTOMOTIVE FLEET SUPERVISOR, [facility] Unavailable Sophia Ellison Attending Unavailable Sophia Ellison Referring Unavailable Sophia Ellison Consulting Unavailable [place]on AUTOMOTIVE FLEET SUPERVISOR, [facility] Unavailable Sophia Ellison Attending Unavailable Sophia Ellison Referring Unavailable [place]orson AUTOMOTIVE FLEET SUPERVISOR, [facility] Unavailable Aashish Thomas Attending Unavailable [place] AUTOMOTIVE FLEET SUPERVISOR, [facility] Unavailable Lashay Fields Attending Unavailabl e Vande Velde, Lashay Referring Unavailabl e [place]on AUTOMOTIVE FLEET SUPERVISOR, [facility] Unavailable Sophia Ellison Consulting Unavailable Sophia Ellison Attending Unavailable [place] AUTOMOTIVE FLEET SUPERVISOR, [facility] Unavailable Lashay Fields Attending Unavailabl e Vande Velde, Lashay Referring Unavailabl e Vande Velde, Lashay Consulting Unavailabl e [place]on AUTOMOTIVE FLEET SUPERVISOR, [facility] Unavailable Sophia Ellison Attending Unavailable [place]on AUTOMOTIVE FLEET SUPERVISOR, [place] Referring Unavailable Lorson AUTOMOTIVE FLEET SUPERVISOR, [facility] Unavailable Lorson AUTOMOTIVE FLEET SUPERVISOR, [place] Referring Unavailable Lorson AUTOMOTIVE FLEET SUPERVISOR, [facility] Unavailable Gonzalez Dunne Attending Unavailable Dysart AUTOMOTIVE FLEET SUPERVISOR, Malathi Attending Unavailable Lorson AUTOMOTIVE FLEET SUPERVISOR, [facility] Unavailable Lorson AUTOMOTIVE FLEET SUPERVISOR, [place] Referring Unavailable Lorson AUTOMOTIVE FLEET SUPERVISOR, [facility] Unavailable Dysart AUTOMOTIVE FLEET SUPERVISOR, Malathi Attending Unavailable Lorson AUTOMOTIVE FLEET SUPERVISOR, [place] Referring Unavailable Gonzalez Dunne Attending Unavailable Lorson AUTOMOTIVE FLEET SUPERVISOR, [place] Referring Unavailable [place]orson AUTOMOTIVE FLEET SUPERVISOR, [facility] Unavailable Lorson AUTOMOTIVE FLEET SUPERVISOR, [facility] Unavailable Sophia Ellison Referring Unavailable Sophia Ellison Attending Unavailable Lashay Fields Attending Unavailabl e [place]orson AUTOMOTIVE FLEET SUPERVISOR, [place] Referring Unavailable Lorson AUTOMOTIVE FLEET SUPERVISOR, [facility] Unavailable Lorson AUTOMOTIVE FLEET SUPERVISOR, [place] Referring Unavailable Gonzalez Dunne Attending Unavailable [place]on AUTOMOTIVE FLEET SUPERVISOR, [facility] Unavailable Lorson AUTOMOTIVE FLEET SUPERVISOR, [place] Referring Unavailable Gonzalez Dunne Attending Unavailable [place]orson AUTOMOTIVE FLEET SUPERVISOR, [facility] Unavailable Lashay Fields Attending Unavailabl e [place]on AUTOMOTIVE FLEET SUPERVISOR, [place] Referring Unavailable Lorson AUTOMOTIVE FLEET SUPERVISOR, [facility] Unavailable Sophia Ellison Admitting Unavailable Sophia Ellison Attending Unavailable Lorson AUTOMOTIVE FLEET SUPERVISOR, [facility] Unavailable Dysart AUTOMOTIVE FLEET SUPERVISOR, Malathi Attending Unavailable Lorson AUTOMOTIVE FLEET SUPERVISOR, [place] Referring Unavailable Lorson AUTOMOTIVE FLEET SUPERVISOR, [facility] Unavailable Zachery, Gonzalez Referring Unavailable Gonzalez Dunne Attending Unavailable Eliazar AUTOMOTIVE FLEET SUPERVISOR, [facility] Unavailable Lashay Fields Attending Unavailabl e Eliazar AUTOMOTIVE FLEET SUPERVISOR, [place] Referring Unavailable Lorson AUTOMOTIVE FLEET SUPERVISOR, [facility] Unavailable Lorberenice AUTOMOTIVE FLEET SUPERVISOR, [facility] Unavailable Gonzalez Dunne Attending Unavailable Lorberenice AUTOMOTIVE FLEET SUPERVISOR, [place] Referring Unavailable Lorson AUTOMOTIVE FLEET SUPERVISOR, [facility] Unavailable Lashay Fields Attending Unavailabl e Alanason AUTOMOTIVE FLEET SUPERVISOR, [place] Referring Unavailable L[place]on AUTOMOTIVE FLEET SUPERVISOR, [facility] Unavailable Sophia Ellison Attending Unavailable [place]on AUTOMOTIVE FLEET SUPERVISOR, [place] Referring Unavailable Rasta AUTOMOTIVE FLEET SUPERVISOR, Malatih Attending Unavailable Lorson AUTOMOTIVE FLEET SUPERVISOR, [place] Referring Unavailable [place]on AUTOMOTIVE FLEET SUPERVISOR, [facility] Unavailable Lashay Fields Referring UnavailLashay Pinzon Attending Unavailabl e Eliazar AUTOMOTIVE FLEET SUPERVISOR, [facility] Unavailable Gonzalez Dunne Referring Unavailable Gonzalez Dunne Attending Unavailable Eliazar AUTOMOTIVE FLEET SUPERVISOR, [facility] Unavailable Medications Current Medications Medication Drug Class(es) [...] tab(s), 1 Refill(s), 01/07/23 9:45:00 EDT, [facility]acy: [facility] #[id number], 167.6, cm, 12/08/22 22:42:00 EDT, Height Start [...] 12 tab(s), 0 Refill(s), [id number], Postoperative pain, 167.6, cm, 02/04/23 6:23:00 EDT, Height, 75, kg, 02/04/23 6:23:00 EDT, Dosing Weight Start Date: 02/04/23 Stop Date: 02/11/23 Status: Ordered [id number] 200 actuat albuterol 0.09 mg/actuat metered dose [...] 6.7 gram(s), 0 Refill(s), [facility]: [facility] #[id number], 167, cm, 08/16/22 13:53:00 EST, Height, kg, [...] 0 Refill(s), [facility] [facility], 167.6, cm, 09/02/20 14:42:00 EDT, Height, kg, [...] day(s), # 1 EA, 0 Refill(s), [facility]acy: [facility] #[id number], 167.6, cm, 12/08/22 22:42:00 EDT, Height Start Date: 12/10/22 Stop Date: 12/24/22 Status: Ordered DME MISCellaneous (8 sources) Start: 023 DME MISCellaneous See Instructions, Spacer chamber, Dx: J45.909, # 1 EA, 0 Refill(s), [facility]acy: [facility] #[id number], 167, cm, 09/25/22 8:01:00 EDT, Height, 79.5 Start Date: 09/25/22 Status: Ordered docosahexaenoic acid 200 mg oral capsule (16 sources) Start: 025 take 1 mg by mouth at bedtime Docosahexaenoic Acid ( Dha) 200 mg capsule Active 1 mg PO AT BEDTIME June 26, 2024 1:00am evening primrose oil 1000 mg oral capsule (3 sources) Start: Evening [place] Oil 1000 mg oral capsule Dose : 1,000 mg = 1 cap(s), Oral, Daily, 0 Refill(s) Start Date: 12/07/22 Status: Ordered famotidine 20 mg oral tablet (6 sources) Histamine-2 Receptor Antagonist Start: Pepcid 20 mg oral tablet Dose : 20 mg = 1 tab(s), Oral, BID, # 60 tab(s), 0 Refill(s), [facility]acy: [facility] #[id number], 31 weeks gestation of Gastric reflux, 167, [...] 30 tab(s), 3 Refill(s), Pharmacy: [facility] #[id number], 167.6, cm, 12/08/22 22:42:00 EDT, Height Start Date: 12/10/22 Status: Ordered Start: 09-27-2022 ferrous sulfat e 325 mg (65 mg elemental iron) oral delayed release tablet Dose : 325 mg = 1 tab(s), Oral, qDay, # 30 tab(s), 6 Refill(s), [facility]acy: [facility] #[id number], 167, cm, 09/27/22 13:18:00 EDT, Height Start Date: 09/27/22 Status: Ordered ibuprofen 800 mg oral tablet (6 sources) Nonsteroidal Anti-inflammatory Drug Start: 02-04-2023 End: 02-18-2023 ibuprofen 800 mg oral tablet Dose : 800 mg = 1 tab(s), Oral, q8h, X 14 day(s), # 42 tab(s), 0 Refill(s), 02/18/23 6:33:00 AM EDT, Pharmacy: [facility] #[id number], 167.6, cm, 02/04/23 6:23:00 EDT, Height, kg, 02/04/23 6:23:00 EDT, Dosing Weight Start Date: 02/04/23 Stop Date: 02/18/23 Status: Ordered Start: 12-10-2022 End: 12-24-2022 ibuprofen 800 mg oral tablet Dose : 800 mg = 1 tab(s), Oral, q8h, X 14 day(s), # 42 tab(s), 0 Refill(s), 12/24/22 9:45:00 EDT, Pharmacy: [facility] #[id number], 167.6, cm, 12/08/22 22:42:00 EDT, Height Start [...] # 48 tab(s), 3 Refill(s), [facility]: [facility], Menorrhagia, 167.6, cm, 09/02/20 14:42:00 EDT, Height, kg, 09/02/20 14:42:00 EDT, Dosing Weight Start Date: 07/15/21 Status: Ordered Vitamin B6 50 mg oral tablet (5 sources) Start: 11-02-2022 take 1 tablet by mouth twice daily Vitamin B6 50 mg oral tablet 1 tab(s), Oral, BID, # 28 tab(s), 0 Refill(s), [facility]acy: [facility] #[id number], 167, cm, 10/25/22 10:43:00 EDT, Height, kg, [...] End: 09-29-2023 sodium chloride 0.9% (NS) fl [facility] 5-40 mL Vitamin B Complex (B-Complex ) [...] Test Name Value Interpretation Reference Range Facility Social Work Nurse Office Visit Reporton 01-28-2025 Social Work Nurse Office Visit Report [facility] [address], [address] [place] [address] OFFICE VISIT Date of Service: 01/28/25 MR#: [id number] Acct: [id number] Name: CYDNEY BROWN Rep #: [id number] : 2000 Provider: HARJIT Castañeda ams Age/Sex: 24/F [place] [facility] [place]: Signed Intake Vital Signs 12/03/24 09:11 01/21/25 14:02 01/28/25 10:31 Height 5 ft 6 in 5 ft 6 in 5 ft 6 in Weight: 216 lb BMI 34.8 BP 118/65 Intake Visit Reasons: 40wk ob *JANNET 01/27 Chief Complaint: 40wk OB Pattern Weaver Required: No Is patient in pain?: No [...] children number of children: 1 current occupation: [employer] current occupational exposures/hazards: No pets and [...] 5-6 times per week duration: 30-45 minutes/day feliciano/shinto: Yarsani seatbelt use: always do you feel safe at home: Yes additional social history: : [employer]riz[employer]- [employer] @ [place] History 2 Elective abortions [...] ???-???-???-???-???-? ??-???- (more content not included)... Normal [facility] (ROM) Rupture Of Membraneson 01-21-2025 ROM Negative Normal Negative [facility] Comment on above: Result Comment: Amni otic fluid not present indicates No Rupture of Membranes at time of specimen collection. Performed By: #### L 205.1000 #### [facility] Laboratory [facility], [address] Laboratory - Chemistry and C hemistry - challengeOrdered By: Sophia Ellison on 01-21-2025 Glucose Ql (U) Negative [facility] Laboratory - UrinalysisOrder ed By: Sophia Ellison on 01-21-2025 Protein Ql (U) Negative [facility] Social Work Nurse Office Visit Reporton 01-21-2025 Social Work Nurse Office Visit Report [facility] [address], [address] [place] [address] OFFICE VISIT Date of Service: 01/21/25 MR#: [id number] Acct: [id number] Name: CYDNEY BROWN Rep #: [id number] : 2000 Provider: Dr. Sophia mora MD Age/Sex: 24/F [place] [facility] [place]: Signed Intake Vital Signs 12/03/24 09:11 01/15/25 14:26 01/21/25 13:59 01/21/25 14:02 Height 5 ft 6 in 5 ft 6 in 5 ft 6 in 5 ft 6 in Weight: 214 lb BMI 34.5 BP 116/81 H Intake Visit Reasons: 39 wk ob Pattern Weaver Required: No Is patient in pain?: No [...] children number of children: 1 current occupation: [employer] current occupational exposures/hazards: No pets and [...] 5-6 times per week duration: 30-45 minutes/day feliciano/shinto: Yarsani seatbelt use: always do you feel safe at home: Yes additional social history: : [employer]- [employer] @ [place] History 2 Elective abortions [...] 112/76 -???-???-? (more content not included)... Normal [facility] Laboratory - Chemistry and C hemistry - challengeOrdered By: Lashay Tellez on 01-15-2025 Glucose Ql (U) Negative [facility] Laboratory - UrinalysisOrder ed By: Lashay Tellez on 01-15-2025 Protein Ql (U) Negative [facility] Social Work Nurse Office Visit Reporton 01-15-2025 Social Work Nurse Office Visit Report [facility] [address] [place] [address], [address] [place] [address] OFFICE VISIT Date of Service: 01/15/25 MR#: [id number] Acct: [id number] Name: CYDNEY BROWN Rep #: [id number] : 2000 Provider: Dr. Lashay Franks, Age/Sex: 24/F [place] [facility] [place]: Signed Intake Vital Signs 12/03/24 09:11 01/07/25 11:31 01/15/25 14:26 Height 5 ft 6 in 5 ft 6 in 5 ft 6 in Weight: 213 lb 8 oz BMI 34.4 BP 121/76 H Intake Visit Reasons: 38 wk ob Pattern Weaver Required: No Is patient in pain?: No [...] children number of children: 1 current occupation: [employer] current occupational exposures/hazards: No pets and [...] 5-6 times per week duration: 30-45 minutes/day feliciano/shinto: Yarsani seatbelt use: always do you feel safe at home: Yes additional social history: : [employer]- [employer] @ [place] History 2 Elective abortions Hx Para 1 [...] -???-???-???-???-???- ???-???-? (more content not included)... Normal [facility] Laboratory - Chemistry and C hemistry - challengeOrdered By: Gonzalez Dunne on 01-07-2025 Glucose Ql (U) Negative [facility] Laboratory - UrinalysisOrder ed By: Gonzalez Dunne on 01-07-2025 Protein Ql (U) Negative [facility] Social Work Nurse Office Visit Reporton 01-07-2025 Social Work Nurse Office Visit Report [facility] [address], [address] [place] [address] OFFICE VISIT Date of Service: 01/07/25 MR#: [id number] Acct: [id number] Name: CYDNEY BROWN Rep #: [id number] : 2000 Provider: HARJIT Castañeda ams Age/Sex: 24/F [place] [facility] [place]: Signed Intake Vital Signs 12/03/24 09:11 12/31/24 09:41 01/07/25 11:31 Height 5 ft 6 in 5 ft 6 in 5 ft 6 in Weight: 213 lb 2 oz 215 lb 2 oz BMI 34.4 34.7 BP 99/68 119/78 Intake Visit Reasons: 37 wk ob Chief Complaint: 37wk OB Pattern Weaver Required: No Is patient in pain?: No [...] children number of children: 1 current occupation: [employer] current occupational exposures/hazards: No pets and [...] 5-6 times per week duration: 30-45 minutes/day feliciano/shinto: Yarsani seatbelt use: always do you feel safe at home: Yes additional social history: : [employer]- [employer] @ [place] History 2 Elective abortions Hx Para 1 [...] ???-???-???-???-???-? ??-? (more content not included)... Normal [facility] Rule out Beta Strep (Grp. B) on 01-02-2025 CECI Group B Beta Streptococcus is not isolated. Normal [facility] Comment on above: Performed By: #### M 100.2636 #### [facility] Laboratory [address] [place], [address] Laboratory - Chemistry and C hemistry - challengeOrdered By: Gonzalez Dunne on 12-31-2024 Glucose Ql (U) Negative [facility] Laboratory - UrinalysisOrder ed By: Gonzalez Dunne on 12-31-2024 Protein Ql (U) Negative [facility] Social Work Nurse Office Visit Reporton 12-31-2024 Social Work Nurse Office Visit Report [facility] [address], [address] [place] [address] OFFICE VISIT Date of Service: 12/31/24 MR#: [id number] Acct: [id number] Name: CYDNEY BROWN Rep #: [id number] : 2000 Provider: HARJIT Castañeda ams Age/Sex: 24/F [place] [facility] [place]: Signed Intake Vital Signs 10/22/24 12:58 12/25/24 13:53 12/31/24 09:41 Height 5 ft 6 in 5 ft 6 in 5 ft 6 in Weight: 213 lb 2 oz BMI 34.4 BP 99/68 Intake Visit Reasons: 36 wk ob Chief Complaint: 36wk OB Pattern Weaver Required: No Is patient in pain?: No [...] children number of children: 1 current occupation: [employer] current occupational exposures/hazards: No pets and [...] 5-6 times per week duration: 30-45 minutes/day feliciano/shinto: Yarsani seatbelt use: always do you feel safe at home: Yes additional social history: : [employer]- [employer] @ [place] History 2 Elective abortions Hx Para 1 [...] 176 -???-???-??? (more content not included)... Normal [facility] Screening beta-hemolytic Str eptococcus cultureOrdered By: Gonzalez Dunne on 12-31-2024 Beta-hemolytic Streptococcus culture Group B Beta Streptococcus is not isolated. [facility] (ROM) Rupture Of Membraneson 12-25-2024 ROM Negative Normal Negative [facility] Comment on above: Result Comment: Amni otic fluid not present indicates No Rupture of Membranes at time of specimen collection. Performed By: #### L 205.1000 ####[facility] [id number] [facility] [place], [address] OB Triage Physician Noteon 0 12-25-2024 OB Triage Physician Note [facility] Medical Records Department [address] [place] [address] OB Triage Physician Note 12/25/24 190 MR#: [id number] Acct: [id number] Name: CYDNEY BROWN Rep #: [id number] : 2000 24 From: Lashay Fields DO PCP: NOEMÍ Alvarez Status:DEP CLI Y Location: [facility] HPI - General HPI Narrative [...] children number of children: 1 current occupation: [employer] current occupational exposures/hazards: No pets and [...] 5-6 times per week duration: 30-45 minutes/day feliciano/shinto: Yarsani seatbelt use: always do you feel safe at home: Yes additional social history: : [employer]- [employer] @ [employer] History 2 Elective abortions Hx Para [...] LMP 01/27/25. Desires nipt. was delivered in [facility] last p (more content not included)... Normal [facility] Laboratory - Chemistry and C hemistry - challengeOrdered By: Malathi Magdaleno on 12-17-2024 Glucose Ql (U) Negative [facility] Laboratory - UrinalysisOrder ed By: Malathi Magdaelno on 12-17-2024 Protein Ql (U) Negative [facility] Social Work Nurse Office Visit Reporton 12-17-2024 Social Work Nurse Office Visit Report [facility] [address], [address] [place] [address] OFFICE VISIT Date of Service: 12/17/24 MR#: [id number] Acct: [id number] Name: CYDNEY BROWN Rep #: [id number] : 2000 Provider: NOEMÍ oakley Age/Sex: 24/F [place] [facility] [place]: Signed Intake Vital Signs 10/22/24 12:58 12/03/24 09:11 12/17/24 09:32 12/17/24 09:39 Height 5 ft 6 in 5 ft 6 in 5 ft 6 in 5 ft 6 in Weight: 214 lb 4 oz BMI 34.5 BP 104/80 Intake Visit Reasons: 34 wk ob Chief Complaint: 34 Week OB Pattern Weaver Required: No Is patient in pain?: No [...] children number of children: 1 current occupation: [employer] current occupational exposures/hazards: No pets and [...] 5-6 times per week duration: 30-45 minutes/day feliciano/shinto: Yarsani seatbelt use: always do you feel safe at home: Yes additional social history: : [employer]- [employer] @ [place] History 2 Elective abortions Hx Para 1 [...] ???-???-???-???-???-? ??-???- (more content not included)... Normal [facility] OB Triage Progress Noteon OB Triage Progress Note [facility] Medical Records Department [address] [place] [address] OB Triage Progress Note 07/03/25 1500 MR#: [id number] Acct: [id number] Name: CYDNEY BROWN Rep #: [id number] : 2000 24 From: Sophia Ellison MD PCP: NOEMÍ Alvarez Status:REG CLI Y DOS: Location: [place] [address] Progress Notes Date of Service: 12/13/24 Progress Note: Patient presents for triage evaluation secondary to dec movement FHT: 140 Moderate variability reactive no decelerations category I tracing [place]: no regular Contractions Assessment and plan: 33 weeks decreased movement Reactive NST, reassuring maternal and status patient discharged to home to follow-up as scheduled. See problem list details for additional plan information. Charges/Coding Procedures Urinary/Genital 52xxx-59xxx: 45423-80 non-stress test Interp 12/13/24 1501 Date Sophia Ellison MD Cosigner Signature (if applicable): Date CC: NOEMÍ Perea; Dr. Sophia Ellison MD Signed Normal [facility] Laboratory - Chemistry and C hemistry - challengeOrdered By: Lashay Tellez on 12-03-2024 Glucose Ql (U) Negative [facility] Laboratory - UrinalysisOrder ed By: Lashay Tellez on 12-03-2024 Protein Ql (U) Negative [facility] Social Work Nurse Office Visit Reporton 12-03-2024 Social Work Nurse Office Visit Report [facility] [address], [address] [place] [address] OFFICE VISIT Date of Service: 12/03/24 MR#: [id number] Acct: [id number] Name: CYDNEY BROWN Rep #: [id number] : 2000 Provider: Dr. Lashay Franks DO Age/Sex: 24/F [place] [facility] [place]: Signed Intake Vital Signs 09/24/24 09:00 11/19/24 08:30 12/03/24 09:10 12/03/24 09:11 Height 5 ft 6 in 5 ft 6 in 5 ft 6 in 5 ft 6 in Weight: 215 lb BMI 34.7 BP 127/86 H Intake Visit Reasons: 32 WK OB Pattern Weaver Required: No Is patient in pain?: No [...] children number of children: 1 current occupation: [employer] current occupational exposures/hazards: No pets and animals: [...] 5-6 times per week duration: 30-45 minutes/day feliciano/shinto: Yarsani seatbelt use: always do you feel safe at home: Yes additional social history: : [employer]- [employer] @ [place] History 2 Elective abortions Hx Para 1 Spontaneous abortions Hx # Term Pregnancies Ectopic pregnancies Hx # Pregnancies Multiple births # of living children 1 Past Pregnancies Del. Date Name GA/Weeks Outcome Route Bth Weight Infant Gen Labor Lgth Anesthesia Del Locatn Provider FOB 12/09/22 Ines 41 live - full term 7lbs 6oz Female 12 hours epi dural Andie Winstedbernabe Roberts Delivery Date: 12/09/22 Last Updated by: [...] 176 -???-???-???-???-???- (more content not included)... Normal [facility] Laboratory - Chemistry and C hemistry - challengeOrdered By: Malathi Magdaleno on 11-19-2024 Glucose Ql (U) Negative [facility] Laboratory - UrinalysisOrder ed By: Malathi Magdaleno on 11-19-2024 Protein Ql (U) Trace [facility] Social Work Nurse Office Visit Reporton 11-19-2024 Social Work Nurse Office Visit Report [facility] [address], [address] [place] [address] OFFICE VISIT Date of Service: 11/19/24 MR#: [id number] Acct: [id number] Name: CYDNEY BROWN Rep #: [id number] : 2000 Provider: NOEMÍ oakley Age/Sex: 24/F [place] [facility] [place]: Signed Intake Vital Signs 09/24/24 09:00 11/06/24 09:54 11/19/24 08:30 Height 5 ft 6 in 5 ft 6 in 5 ft 6 in Weight: 214 lb 2 oz 214 lb 6 oz BMI 34.5 34.6 BP 103/51 L 102/64 Intake Visit Reasons: 30 WK OB Chief Complaint: 30 Week OB Pattern Weaver Required: No Is patient in pain?: No [...] children number of children: 1 current occupation: [employer] current occupational exposures/hazards: No pets and [...] 5-6 times per week duration: 30-45 minutes/day feliciano/shinto: Yarsani seatbelt use: always do you feel safe at home: Yes additional social history: : [employer]- [employer] [place] History 2 Elective abortions [...] ??-???- 1 (more content not included)... Normal [facility] Laboratory - Chemistry and C hemistry - challengeOrdered By: Gonzalez Dunne on 11-06-2024 Glucose Ql (U) Negative [facility] Laboratory - UrinalysisOrder ed By: Gonzalez Dunne on 11-06-2024 Protein Ql (U) Negative [facility] Social Work Nurse Office Visit Reporton 11-06-2024 Social Work Nurse Office Visit Report [facility] [address], [address] [place] [address] OFFICE VISIT Date of Service: 11/06/24 MR#: [id number] Acct: [id number] Name: CYDNEY BROWN Rep #: [id number] : 2000 Provider: HARJIT Castañeda ams Age/Sex: 24/F [place] [facility] [place]: Signed Intake Vital Signs 09/24/24 09:00 10/22/24 12:58 10/28/24 23:52 11/06/24 09:54 Height 5 ft 6 in 5 ft 6 in 5 ft 6 in 5 ft 6 in Weight: 214 lb 2 oz BMI 34.5 BP 103/51 L Intake Visit Reasons: 28 WK OB Chief Complaint: 28wk OB Pattern Weaver Required: No Is patient in pain?: No [...] children number of children: 1 current occupation: [employer] current occupational exposures/hazards: No pets and [...] 5-6 times per week duration: 30-45 minutes/day feliciano/shinto: Yarsani seatbelt use: always do you feel safe at home: Yes additional social history: : [employer]- [employer] [place] History 2 Elective abortions [...] -???-???-???-???-???- ???-???-???- (more content not included)... Normal [facility] Urine Cultureon 10-30-2024 URC Mixed Gram Positive Organisms [place] Count 11,000-25,000 MIXC Mixed contaminants. Submit a new specimen if indicated. Normal [facility] Comment on above: Performed By: #### M 100.2200 ####[facility] [address] [facility] [place], [address] OB Triage Progress Noteon OB Triage Progress Note [facility] Medical Records Department [address] [place] [address] OB Triage Progress Note 10/29/24 0736 MR#: [id number] Acct: [id number] Name: CYDNEY BROWN Rep #: [id number] : 2000 24 From: Sophia Ellison MD PCP: NOEMÍ Alvarez Status:DEP CLI Y DOS: Location: [facility]OUT Progress Notes Date of Service: 10/28/24 Progress Note: Patient presents for triage evaluation secondary to threatened contracitons FHT: 150 Moderate variability reactive no decelerations category I tracing [place]: isolated Contractions Assessment and plan: 27 weeks threatened contractions cervix closed urine culture sent Reactive NST, reassuring maternal and status patient discharged to home to follow-up as scheduled. See problem list details for additional plan information. Laboratory Studies: Laboratory Tests 10/28/24 Range/Units 00:20 Urine Color Yellow (Yellow) Urine Clarity Clear (Clear) Urine pH 7.0 (5.0 - 8.0) Ur Specific [place] 1.015 (1.002-1.030) Urine Protein 15 H (Negative) mg/dl Urine Glucose (UA) Normal (Normal) mg/dl Urine Ketones Negative (Negative) mg/dl Urine Occult Blood 10 H (Negative) /ul Urine Nitrite Negative (Negative) Urine Bilirubin Negative (Negative) mg/dL Urine Urobilinogen Normal (Normal) mg/dl Ur Leukocyte Esterase Negative (Negative) /ul Charges/Coding Procedures Urinary/Genital 52xxx-59xxx: 35516-06 non-stress test Interp 10/29/24 0737 Date Sophia Ellison MD Cosigner Signature (if applicable): Date CC: AUTOMOTIVE FLEET SUPERVISOR-Sudeep Perea; Dr. Sophia Ellison MD Signed Normal [facility] Urinalysis, Routine (Dipstic k)on 10-29-2024 BILIRUBIN URINE Negative Normal Negative [facility] Comment on above: Order Comment: CLEAN CATCH Performed By: #### L 400.2010 #### [facility] Laboratory [address] [place], [place], [id number] Clarity (U) Clear Normal Clear [facility] Comment on above: Order Comment: CLEAN CATCH Performed By: #### L 400.2010 #### [facility] [address] [place], [place], [id number] Color (U) Yellow Normal Yellow [facility] Comment on above: Order Comment: CLEAN CATCH Performed By: #### L 400 #### [facility] [address] [place], [place], [id number] GLUCOSE, UR Normal Normal Normal [facility] Comment on above: Order Comment: CLEAN CATCH Performed By: #### L 400 #### [facility] [address] [place], [address] KETONE UR Negative Normal Negative [facility] Comment on above: Order Comment: CLEAN CATCH Performed By: #### L 400.2010 #### [facility] [address] [place], [address] LEUK ESTERASE Negative Normal Negative [facility] Comment on above: Order Comment: CLEAN CATCH Performed By: #### L 400.2010 #### [facility] [address] [place], [address] Nitrite Ql (U) Negative Normal Negative [facility] Comment on above: Order Comment: CLEAN CATCH Performed By: #### L 400 #### [facility] [address] [place], [address] OCCULT BLOOD-UR 10 /ul Abnormal Negative [facility] Comment on above: Order Comment: CLEAN CATCH Performed By: #### L 400.2010 #### [facility] [address] [place], [address] pH UR 7.0 Normal 5.0 - 8.0 [facility] Comment on above: Order Comment: CLEAN CATCH Performed By: #### L 400.2010 #### [facility] [address] [place], [address] PROT DIPSTX 15 mg/dl Abnormal Negative [facility] Comment on above: Order Comment: CLEAN CATCH Performed By: #### L 400.2010 #### [facility] [address] [place], [address] SP.GR. DIPSTX 1.015 Normal 1.002-1.030 [facility] Comment on above: Order Comment: CLEAN CATCH Performed By: #### L 400 #### [facility] [address] [place], [address] UROBILI Normal Normal Normal [facility] Comment on above: Order Comment: CLEAN CATCH Performed By: #### L 400.2010 #### [facility] Laboratory [address] [place], [place], [id number] Urine cultureOrdered By: Israel Ellison on 10-29-2024 Bacteria identified Cx Nom (U) Positive Abnormal [facility] Bilirubin Test strip Ql (U)O rdered By: Sophia Ellison on 10-28-2024 Bilirubin Ql (U) Negative Negative [facility] Ketones Test strip Ql (U)Ord ered By: Sophia Ellison on 10-28-2024 Ketones Ql (U) Negative Negative [facility] Nitrite Test strip Ql (U)Ord ered By: Sophia Ellison on 10-28-2024 Nitrite Ql (U) Negative Negative [facility] Protein Test strip Ql (U)Ord ered By: Sophia Ellison on 10-28-2024 Protein Ql (U) 15 mg/dl High Negative [facility] Urine clarityOrdered By: Israel Ellison on 10-28-2024 Clarity (U) Clear Clear [facility] Urine color determinationOrd ered By: Sophia Ellison on 10-28-2024 Color (U) Yellow Yellow [facility] Urine glucose detectionOrder ed By: Sophia Ellison on 10-28-2024 Glucose Ql (U) Normal mg/dl Normal [facility] Urine leukocyte esterase det ection by dipstickOrdered By: Sophia Ellison on 10-28-2024 Leukocyte esterase Test strip Ql (U) Negative Negative [facility] Urine pHOrdered By: Sophia mejia on 10-28-2024 pH (U) 7.0 [pH] 5.0 - 8.0 [facility] Urine specific gravity measu rementOrdered By: Sophia Ellison on 10-28-2024 Specific gravity (U) [Rel density] 1.015 1.002-1.030 [facility] Urine urobilinogen measureme ntOrdered By: Sophia Ellison on 10-28-2024 Urobilinogen Ql (U) Normal mg/dl Normal [facility] Absolute lymphocyte countOrd ered By: Sophia Ellison on 10-22-2024 Lymphocytes Auto (Unsp spec) [#/Vol] 1.49 10*3/uL 0.83-4.51 [facility] Absolute neutrophil countOrd ered By: Sophia Ellison on 10-22-2024 Neutrophils (Bld) [#/Vol] 9.0 10*3/uL High 2.0-7.7 [facility] Automated lymphocyte count a s percentage of total leukocytesOrdered By: Sopiha Ellison on 10-22-2024 Lymphocytes/100 WBC Auto (Unsp spec) 13.2 % Low 19-41 [facility] Basophil percentageOrdered B y: Sophia Ellison on 10-22-2024 Basophils/100 WBC (Bld) 0.2 % 0-1 [facility] CBC W/Diff, Automatedon 10-11 Absolute Lymph 1.49 X10 3/uL Normal 0.83-4.51 [facility] Comment on above: Performed By: #### L 509.8002, L501.0250, L3890.6006, L100.0100 ####[facility] [address] [place], [address] Absolute Neut 9.0 X10 3/uL High 2.0-7.7 [facility] Comment on above: Performed By: #### L 509.8002, L501.0250, L3890.6006, L100.0100 ####[facility] [address] [place], [address] Basophils/100 WBC (Bld) 0.2 % Normal 0-1 [facility] Comment on above: Performed By: #### L 509.8002, L501.0250, L3890.6006, L100.0100 ####[facility] [address] [place], [address] Eosinophils/100 WBC (Bld) 0.3 % Normal 0-5 [facility] Comment on above: Performed By: #### L 509.8002, L501.0250, L3890.6006, L100.0100 ####[facility] [address] [place], [address] Erythrocyte distribution width (RBC) [Ratio] 13.5 % Normal 11.6-14.6 [facility] Comment on above: Performed By: #### L 509.8002, L501.0250, L3890.6006, L100.0100 ####[facility] [address] [place], [address] Hematocrit (Bld) [Volume fraction] 40.1 % Normal 37-47 [facility] Comment on above: Performed By: #### L 509.8002, L501.0250, L3890.6006, L100.0100 ####[facility] [address] [place], [address] Hemoglobin (Bld) [Mass/Vol] 13.0 g/dL Normal 12.0-15.0 [facility] Comment on above: Performed By: #### L 509.8002, L501.0250, L3890.6006, L100.0100 ####[facility] [address] [place], [address] IG% 1.200 High 0.0-0.9 [facility] Comment on above: Result Comment: IG% - Immature Granulocytes (promyelocytes, myelocytes and metamyelocytes) > 1% indicates that a LEFT SHIFT is Present. Performed By: #### L 509.8002, L501.0250, L3890.6006, L100.0100 ####[facility] [address] [place], [address] Lymphocytes/100 WBC (Bld) 13.2 % Low 19-41 [facility] Comment on above: Performed By: #### L 509.8002, L501.0250, L3890.6006, L100.0100 ####[facility] [address] [place], [address] MCH (RBC) [Entitic mass] 30.1 pg Normal 27.0-32.0 [facility] Comment on above: Performed By: #### L 509.8002, L501.0250, L3890.6006, L100.0100 ####[facility] [address] [place], [address] MCHC (RBC) [Mass/Vol] 32.4 g/dL Normal 32-36 [facility] Comment on above: Performed By: #### L 509.8002, L501.0250, L3890.6006, L100.0100 ####[facility] [address] [place], [address] MCV (RBC) [Entitic vol] 92.8 fL Normal 81-99 [facility] Comment on above: Performed By: #### L 509.8002, L501.0250, L3890.6006, L100.0100 ####[facility] [address] [place], [address] Monocytes/100 WBC (Bld) 5.1 % Normal 0-10 [facility] Comment on above: Performed By: #### L 509.8002, L501.0250, L3890.6006, L100.0100 ####[facility] [address] [place], [address] Neutrophils/100 WBC (Bld) 80.0 % High 47-70 [facility] Comment on above: Performed By: #### L 509.8002, L501.0250, L3890.6006, L100.0100 ####[facility] [address] [place], [address] Nucleated RBC (Bld) [#/Vol] 0 10*3/uL Normal 0-5 [facility] Comment on above: Performed By: #### L 509.8002, L501.0250, L3890.6006, L100.0100 ####[facility] [address] [place], [address] Platelet mean volume (Bld) [Entitic vol] 9.4 fL Normal 6.2-12.0 [facility] Comment on above: Performed By: #### L 509.8002, L501.0250, L3890.6006, L100.0100 ####[facility] [address] [place], [address] Platelets (Bld) [#/Vol] 358 10*3/uL Normal 150-450 [facility] Comment on above: Performed By: #### L 509.8002, L501.0250, L3890.6006, L100.0100 ####[facility] [address] [place], [address] RBC (Bld) [#/Vol] 4.32 10*6/uL Normal 4.2-5.4 [facility] Comment on above: Performed By: #### L 509.8002, L501.0250, L3890.6006, L100.0100 ####[facility] [address] [place], [address] RDW SD 46.0 fl High 35.1-43.9 [facility] Comment on above: Performed By: #### L 509.8002, L501.0250, L3890.6006, L100.0100 ####[facility] [address] [place], [address] WBC (Bld) [#/Vol] 11.3 10*3/uL High 4.4-11.0 [facility] Comment on above: Performed By: #### L 509.8002, L501.0250, L3890.6006, L100.0100 ####[facility] [address] [place], [address] Eosinophil percentageOrdered By: Sophia Ellison on 10-22-2024 Eosinophils/100 WBC (Bld) 0.3 % 0-5 [facility] Erythrocyte distribution wid th ratioOrdered By: Sophia Ellison on 10-22-2024 Erythrocyte distribution width (RBC) [Ratio] 13.5 % 11.6-14.6 [facility] Erythrocyte distribution wid th standard deviationOrdered By: Sophia Ellison on 10-22-2024 Erythrocyte distribution width (RBC) [Ratio] 46.0 fl High 35.1-43.9 [facility] Glucose Challenge Gest 1H 50 regi 10-22-2024 GLU GEST 50g 1H 85 mg/dL Normal 70-140 [facility] Comment on above: Performed By: #### L 509.8002, L501.0250, L3890.6006, L100.0100 ####[facility] [address] [place], [place], [address] Glucose measurement at 2 rosas rs post-dose gestational glucose tolerance testOrdered By: Sophia Ellison on 10-22-2024 Glucose [Mass/Vol] 85 mg/dL 70-140 [facility] HIVon 10-22-2024 HIV Non-Reactive Normal Nonreactive [facility] Comment on above: Result Comment: Non- Reactive Reactive Repeatedly reactive samples must be confirmed according to CDC recommended confirmatory algorithms. The subresults for either HIVAG or AHIV can be used as an aid in the selection of the confirmation algorithm for reactive samples. Send out specimens with Reactive results to [facility] for confirmation. Order the HIV antibody detection and differentiation: lc#[id number] Performed By: #### L 509.8002, L501.0250, L3890.6006, L100.0100 ####[facility] [address] [place], [place], [address] Hematocrit Auto (Bld) [Volum e fraction]Ordered By: Sophia Ellison on 10-22-2024 Hematocrit (Bld) [Volume fraction] 40.1 % 37-47 [facility] Hemoglobin measurementOrdere d By: Sophia Ellison on 10-22-2024 Hemoglobin (Bld) [Mass/Vol] 13.0 g/dL 12.0-15.0 [facility] Immature granulocytes/100 WB C Auto (Bld)Ordered By: Sophia Ellison on 10-22-2024 Immature granulocytes/100 WBC (Bld) 1.200 % High 0.0-0.9 [facility] Comment on above: IG% - Immature Granu locytes (promyelocytes, myelocytes and metamyelocytes) > 1% indicates that a LEFT SHIFT is Present. Laboratory - Chemistry and C hemistry - challengeOrdered By: Malathi Magdaleno on 10-22-2024 Glucose Ql (U) Negative [facility] Laboratory - UrinalysisOrder ed By: Malathi Magdaleno on 10-22-2024 Protein Ql (U) Negative [facility] MCV (mean corpuscular volume ) determinationOrdered By: Sophia Ellison on 10-22-2024 MCV (RBC) [Entitic vol] 92.8 fL 81-99 [facility] Mean corpuscular hemoglobin (MCH) determinationOrdered By: Sophia Ellison on 10-22-2024 MCH (RBC) [Entitic mass] 30.1 pg 27.0-32.0 [facility] Mean corpuscular hemoglobin concentration (MCHC) determinationOrdered By: Sophia Ellison on 10-22-2024 MCHC (RBC) [Mass/Vol] 32.4 g/dL 32-36 [facility] Mean platelet volume determi nationOrdered By: Sophia Ellison on 10-22-2024 Platelet mean volume (Bld) [Entitic vol] 9.4 fL 6.2-12.0 [facility] Monocyte percentageOrdered B y: Sophia Ellison on 10-22-2024 Monocytes/100 WBC (Bld) 5.1 % 0-10 [facility] Neutrophil percentageOrdered By: Sophia Ellison on 10-22-2024 Neutrophils/100 WBC (Bld) 80.0 % High 47-70 [facility] No Panel InformationOrdered By: Sophia Ellison on 10-22-2024 HIV (1&2) Antibody Non-Reactive Nonreactive [facility] Comment on above: Non-ReactiveReactive Repeatedly reactive samples must be confirmed according to CDC recommended confirmatory algorithms. The subresults for either HIVAG or AHIV can be used as an aid in the selection of the confirmation algorithm for reactive samples.Send out specimens with Reactive results to [facility] for confirmation.Order the HIV antibody detection and differentiation: #[id number] Nucleated red blood cell per centageOrdered By: Sophia Ellison on 10-22-2024 Nucleated RBC/100 WBC (Bld) [Ratio] 0 % 0-5 [facility] Social Work Nurse Office Visit Reporton 10-22-2024 Social Work Nurse Office Visit Report [facility] [address], [address] [place] [address] OFFICE VISIT Date of Service: 10/22/24 MR#: [id number] Acct: [id number] Name: CYDNEY BROWN Rep #: [id number] : 2000 Provider: NOEMÍ oakley Age/Sex: 24/F [place] [facility] [place]: Signed Intake Vital Signs 08/27/24 14:39 09/24/24 09:00 10/22/24 12:58 Height 5 ft 6 in 5 ft 6 in 5 ft 6 in Weight: 209 lb 2 oz BMI 33.7 BP 98/66 Intake Visit Reasons: 26 wk ob/GLUCOSE Chief Complaint: 26 Week OB/Glucose Pattern Weaver Required: No Is patient in pain?: No [...] children number of children: 1 current occupation: [employer] current occupational exposures/hazards: No pets and [...] 5-6 times per week duration: 30-45 minutes/day feliciano/shinto: Yarsani seatbelt use: always do you feel safe at home: Yes additional social history: : [employer]- [employer] @ [employer] [place] History 2 Elective abortions Hx Para 1 [...] lb (+0 (more content not included)... Normal [facility] Platelet countOrdered By: Dre Ellison on 10-22-2024 Platelets (Bld) [#/Vol] 358 10*3/uL 150-450 [facility] RBC Auto (Bld) [#/Vol]Ordere d By: Sophia Ellison on 10-22-2024 RBC (Bld) [#/Vol] 4.32 10*6/uL 4.2-5.4 [facility] Syphilis Antibodieson 2024 Syphilis Abs Non-Reactive Normal Nonreactive [facility] Comment on above: Performed By: #### L 509.8002, L501.0250, L3890.6006, L100.0100 ####[facility] [address] [place], [address] White blood cell (WBC) count Ordered By: Sophia Ellison on 10-22-2024 WBC (Bld) [#/Vol] 11.3 10*3/uL High 4.4-11.0 [facility] Laboratory - Chemistry and C hemistry - challengeOrdered By: Sophia Ellison on 09-24-2024 Glucose Ql (U) Negative [facility] Laboratory - UrinalysisOrder ed By: Sophia Ellison on 09-24-2024 Protein Ql (U) Negative [facility] Social Work Nurse Office Visit Reporton 09-24-2024 Social Work Nurse Office Visit Report [facility], [address] [place] [address] OFFICE VISIT Date of Service: 09/24/24 MR#: [id number] Acct: [id number] Name: CYDNEY BROWN Rep #: [id number] : 2000 Provider: Dr. Sophia mora MD Age/Sex: 24/F [place] [facility] [place]: Signed Intake Vital Signs 07/30/24 13:15 08/27/24 14:39 09/24/24 09:00 Height 5 ft 6 in 5 ft 6 in 5 ft 6 in Weight: 192 lb 4 oz 202 lb 6 oz BMI 31.0 32.6 BP 124/77 H 100/63 Intake Visit Reasons: 22wk ob Pattern Weaver Required: No Is patient in pain?: No [...] children number of children: 1 current occupation: [employer] current occupational exposures/hazards: No pets and [...] 5-6 times per week duration: 30-45 minutes/day feliciano/shinto: Yarsani seatbelt use: always do you feel safe at home: Yes additional social history: : [employer]- [employer] @ [employer] [place] History 2 Elective abortions Hx Para 1 [...] 6 day (more content not included)... Normal [facility] Laboratory - Chemistry and C hemistry - challengeOrdered By: Lashay Tellez on 08-27-2024 Glucose Ql (U) Negative [facility] Laboratory - UrinalysisOrder ed By: Lashay Tellez on 08-27-2024 Protein Ql (U) Negative [facility] Social Work Nurse Office Visit Reporton 08-27-2024 Social Work Nurse Office Visit Report [facility] [address], [address] [place] [address] OFFICE VISIT Date of Service: 08/27/24 MR#: [id number] Acct: [id number] Name: CYDNEY BROWN Rep #: [id number] : 2000 Provider: Dr. Lashay Franks, Age/Sex: 24/F [place] [facility] [place]: Signed Intake Vital Signs 07/02/24 10:19 07/30/24 13:15 08/27/24 14:38 08/27/24 14:39 Height 5 ft 6 in 5 ft 6 in 5 ft 6 in 5 ft 6 in Weight: 201 lb BMI 32.4 BP 115/77 Intake Visit Reasons: 18 wk ob Pattern Weaver Required: No Is patient in pain?: No [...] children number of children: 1 current occupation: [employer] current occupational exposures/hazards: No pets and [...] 5-6 times per week duration: 30-45 minutes/day feliciano/shinto: Yarsani seatbelt use: always do you feel safe at home: Yes additional social history: : [employer]- [employer] @ [place] History 2 Elective abortions Hx Para 1 [...] 10 weeks (more content not included)... Normal [facility] Laboratory - Chemistry and C hemistry - challengeOrdered By: Gonzalez Dunne on 07-30-2024 Glucose Ql (U) Negative [facility] Laboratory - UrinalysisOrder ed By: Gonzalez Dunne on 07-30-2024 Protein Ql (U) Negative [facility] Social Work Nurse Office Visit Reporton 07-30-2024 Social Work Nurse Office Visit Report [facility] [address], [address] [place] [address] OFFICE VISIT Date of Service: 07/30/24 MR#: [id number] Acct: [id number] Name: CYDNEY BROWN Rep #: [id number] : 2000 Provider: HARJIT Castañeda ams Age/Sex: 24/F [place] [facility] [place]: Signed Intake Vital Signs 05/21/24 11:39 [...] children number of children: 1 current occupation: [employer] current occupational exposures/hazards: No pets and [...] 5-6 times per week duration: 30-45 minutes/day feliciano/shinto: Yarsani seatbelt use: always do you feel safe at home: Yes additional social history: : [employer]- [employer] @ [place] History 2 Elective abortions Hx Para 1 Spontaneous abortions Hx # Term Pregnancies Ectopic pregnancies Hx # Pregnancies Multiple births # of living children 1 Past Pregnancies Del. Date Name GA/Weeks Outcome Route Bth Weight Infant Gen Labor Lgth Anesthesia Del Locatn Provider FOB 12/09/22 Ines 41 live - full term 7lbs 6oz Female 12 hours epi dural Andie Winsted Melisa Artemio Fabrizio Delivery Date: 12/09/22 Last [...] Desires nipt (more content not included)... Normal [facility] 12 Lead EKGon 07-21-2024 12 Lead EKG [facility] Cardiovascular Services [address] [place] [address] 12 Lead EKG 07/21/24 1841 MR#: [id number] Acct: [id number] Name: CYDNEY BROWN Rep #: [id number] : 2000 24 From: Wei Schroeder MD [...] ECG Confirmed by WEI SCHROEDER MD ([id number]), news assignment editor SANDIE IRVING ([id number]) on 07/23/2024 6:33:14 AM Referred By: AR Confirmed By: WEI SCHROEDER MD 07/23/24 0633 Date Wei Schroeder MD CC: AUTOMOTIVE FLEET SUPERVISOR-C Jenniffer Perea; Dr. Aashish Thomas MD Signed Normal [facility] Absolute lymphocyte countOrd ered By: Aashish Thomas on 07-21-2024 Lymphocytes Auto (Unsp spec) [#/Vol] 0.48 10*3/uL Low 0.83-4.51 [facility] Absolute neutrophil countOrd ered By: Aashish Dolandaisy on 07-21-2024 Neutrophils (Bld) [#/Vol] 8.9 10*3/uL High 2.0-7.7 [facility] Albumin to globulin ratioOrd ered By: Aashish Komaljosephine on 07-21-2024 Albumin/Globulin [Mass ratio] 0.8 {ratio} Low 0.9-2.4 [facility] Automated lymphocyte count a s percentage of total leukocytesOrdered By: Aashish Thomas on 07-21-2024 Lymphocytes/100 WBC Auto (Unsp spec) 4.8 % Low 19-41 [facility] Basophil percentageOrdered B y: Aashish Komaljosephine on 07-21-2024 Basophils/100 WBC (Bld) 0.1 % 0-1 [facility] Bilirubin Test strip Ql (U)O rdered By: Aashish Thomas on 07-21-2024 Bilirubin Ql (U) Negative Negative [facility] Bilirubin, totalOrdered By: Aashish Komaljosephine on 07-21-2024 Bilirubin [Mass/Vol] 0.10 mg/dL Low 0.20-1.00 [facility] Comment on above: For patients on eltr ombopag therapy, use of Dimension [place] TBIL is not recommended. Blood urea nitrogen (BUN)/cr eatinine ratioOrdered By: Aashish Thomas on 07-21-2024 Urea nitrogen/Creatinine [Mass ratio] 10.0 mg/mg 10-20 [facility] CBC W/Diff, Automatedon Absolute Lymph 0.48 X10 3/uL Low 0.83-4.51 [facility] Comment on above: Performed By: #### L 500.4050, L100.0100 ####[facility] [address] [place], [address] Absolute Neut 8.9 X10 3/uL High 2.0-7.7 [facility] Comment on above: Performed By: #### L 500.4050, L100.0100 ####[facility] [address] [place], [address] Basophils/100 WBC (Bld) 0.1 % Normal 0-1 [facility] Comment on above: Performed By: #### L 500.4050, L100.0100 ####[facility] [address] [place], [address] Eosinophils/100 WBC (Bld) 0.1 % Normal 0-5 [facility] Comment on above: Performed By: #### L 500.4050, L100.0100 ####[facility] [address] [place], [address] Erythrocyte distribution width (RBC) [Ratio] 13.0 % Normal 11.6-14.6 [facility] Comment on above: Performed By: #### L 500.4050, L100.0100 ####[facility] [address] [place], [address] Hematocrit (Bld) [Volume fraction] 40.1 % Normal 37-47 [facility] Comment on above: Performed By: #### L 500.4050, L100.0100 ####[facility] [address] [place], [address] Hemoglobin (Bld) [Mass/Vol] 13.1 g/dL Normal 12.0-15.0 [facility] Comment on above: Performed By: #### L 500.4050, L100.0100 ####[facility] [address] [place], [address] IG% 0.400 Normal 0.0-0.9 [facility] Comment on above: Result Comment: IG% - Immature Granulocytes (promyelocytes, myelocytes and metamyelocytes) > 1% indicates that a LEFT SHIFT is Present. Performed By: #### L 500.4050, L100.0100 ####[facility] [address] [place], [address] Lymphocytes/100 WBC (Bld) 4.8 % Low 19-41 [facility] Comment on above: Performed By: #### L 500.4050, L100.0100 ####[facility] [address] [place], [address] MCH (RBC) [Entitic mass] 29.1 pg Normal 27.0-32.0 [facility] Comment on above: Performed By: #### L 500.4050, L100.0100 ####[facility] [address] [place], [address] MCHC (RBC) [Mass/Vol] 32.7 g/dL Normal 32-36 [facility] Comment on above: Performed By: #### L 500.4050, L100.0100 ####[facility] [address] [place], [address] MCV (RBC) [Entitic vol] 89.1 fL Normal 81-99 [facility] Comment on above: Performed By: #### L 500.4050, L100.0100 ####[facility] [address] [place], [address] Monocytes/100 WBC (Bld) 5.2 % Normal 0-10 [facility] Comment on above: Performed By: #### L 500.4050, L100.0100 ####[facility] [address] [place], [address] Neutrophils/100 WBC (Bld) 89.4 % High 47-70 [facility] Comment on above: Performed By: #### L 500.4050, L100.0100 ####[facility] [address] [place], [address] Nucleated RBC (Bld) [#/Vol] 0 10*3/uL Normal 0-5 [facility] Comment on above: Performed By: #### L 500.4050, L100.0100 ####[facility] [address] [place], [address] Platelet mean volume (Bld) [Entitic vol] 8.6 fL Normal 6.2-12.0 [facility] Comment on above: Performed By: #### L 500.4050, L100.0100 ####[facility] [address] [place], [address] Platelets (Bld) [#/Vol] 307 10*3/uL Normal 150-450 [facility] Comment on above: Performed By: #### L 500.4050, L100.0100 ####[facility] [address] [place], [address] RBC (Bld) [#/Vol] 4.50 10*6/uL Normal 4.2-5.4 [facility] Comment on above: Performed By: #### L 500.4050, L100.0100 ####[facility] [address] [place], [address] RDW SD 42.7 fl Normal 35.1-43.9 [facility] Comment on above: Performed By: #### L 500.4050, L100.0100 ####[facility] [address] [place], [address] WBC (Bld) [#/Vol] 10.0 10*3/uL Normal 4.4-11.0 [facility] Comment on above: Performed By: #### L 500.4050, L100.0100 ####[facility] [address] [place], [address] Carbon dioxide measurementOr dered By: Aashish Thomas on 07-21-2024 CO2 [Moles/Vol] 24.0 mmol/L 21.0-32.0 [facility] Chloride measurementOrdered By: Aashish Thomas on 07-21-2024 Chloride [Moles/Vol] 107 mmol/L 98-107 [facility] Comprehensive Metabolic Prof ilon 07-21-2024 Albumin [Mass/Vol] 3.1 g/dL Low 3.2-5.0 [facility] Comment on above: Performed By: #### L 500.4050, L100.0100 ####[facility] [address] [place], [address] Albumin/Globulin [Mass ratio] 0.8 {ratio} Low 0.9-2.4 [facility] Comment on above: Performed By: #### L 500.4050, L100.0100 ####[facility] [address] [place], [address] ALK P 91 U/L Normal 45-117 [facility] Comment on above: Performed By: #### L 500.4050, L100.0100 ####[facility] [address] [place], [address] ALT [Catalytic activity/Vol] 38 U/L Normal 13-56 [facility] Comment on above: Performed By: #### L 500.4050, L100.0100 ####[facility] [address] [place], [address] AST [Catalytic activity/Vol] 31 U/L Normal 15-37 [facility] Comment on above: Performed By: #### L 500.4050, L100.0100 ####[facility] [address] [place], [address] Bilirubin [Mass/Vol] 0.10 mg/dL Low 0.20-1.00 [facility] Comment on above: Result Comment: For patients on eltrombopag therapy, use of Dimension [place] TBIL is not recommended. Performed By: #### L 500.4050, L100.0100 ####[facility] [address] [place], [address] BUN/CRE 10.0 RATIO Normal 10-20 [facility] Comment on above: Performed By: #### L 500.4050, L100.0100 ####[facility] [address] [place], [address] CA,Total 8.7 mg/dL Normal 8.5-10.1 [facility] Comment on above: Performed By: #### L 500.4050, L100.0100 ####[facility] [address] [place], [address] Chloride [Moles/Vol] 107 mmol/L Normal 98-107 [facility] Comment on above: Performed By: #### L 500.4050, L100.0100 ####[facility] [address] [place], [address] CO2 [Moles/Vol] 24.0 mmol/L Normal 21.0-32.0 [facility] Comment on above: Performed By: #### L 500.4050, L100.0100 ####[facility] [address] [place], [address] Creatinine [Mass/Vol] 0.60 mg/dL Normal 0.55-1.02 [facility] Comment on above: Result Comment: The validity of the calculated GFR GFRAA in patients over 70 years has not been determined. Clinical correlation is essential. Performed By: #### L 500.4050, L100.0100 ####[facility] [address] [place], [address] ECRCL 163.86 ml/min Normal [facility] Comment on above: Performed By: #### L 500.4050, L100.0100 ####[facility] [address] [place], [address] EST GFR - AA 159 mL/min Normal >60 [facility] Comment on above: Result Comment: Afri can [facility] GFR Calc Performed By: #### L 500.4050, L100.0100 ####[facility] [address] [place], [address] GAP 7 Normal 5-15 [facility] Comment on above: Performed By: #### L 500.4050, L100.0100 ####[facility] [address] [place], [address] GFR/1.73 sq M.predicted among non-blacks MDRD (S/P/Bld) [Vol rate/Area] 132 mL/min/{1.73_m2} Normal >60 [facility] Comment on above: Result Comment: Non- GFR Calc Performed By: #### L 500.4050, L100.0100 ####[facility] [address] [place], [address] Globulin (S) [Mass/Vol] 3.8 g/dL Normal 2.2-4.2 [facility] Comment on above: Performed By: #### L 500.4050, L100.0100 ####[facility] [address] [place], [address] Glucose [Mass/Vol] 90 mg/dL Normal 74-106 [facility] Comment on above: Performed By: #### L 500.4050, L100.0100 ####[facility] [address] [place], [address] Potassium [Moles/Vol] 3.3 mmol/L Low 3.5-5.1 [facility] Comment on above: Performed By: #### L 500.4050, L100.0100 ####[facility] [address] [place], [address] Sodium [Moles/Vol] 138 mmol/L Normal 136-145 [facility] Comment on above: Performed By: #### L 500.4050, L100.0100 ####[facility] [address] [place], [address] T PROT 6.9 g/dL Normal 6.4-8.2 [facility] Comment on above: Performed By: #### L 500.4050, L100.0100 ####[facility] [address] [place], [address] Urea nitrogen [Mass/Vol] 6 mg/dL Low 7-18 [facility] Comment on above: Performed By: #### L 500.4050, L100.0100 ####[facility] [address] [place], [address] Emergency Department Summary on 07-21-2024 Emergency Department Summary [facility] Medical Records Department [address] [place] [address] Emergency Department Summary 07/21/24 MR#: [id number] Acct: [id number] Name: CYDNEY BROWN Rep #: [id number] : 2000 24 From: Aashish Thomas MD PCP: NOEMÍ Alvarez Status:REG ER Location: ED HPI History of Present Illness Chief Complaint: Palpitations Narrative Narrative: 24-year-old female, G2, P1 sees [facility] [employer] presents with heart palpitations and rapid heart [...] of breath. 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 Normal [facility] Eosinophil percentageOrdered By: Aashish Thomas on 07-21-2024 Eosinophils/100 WBC (Bld) 0.1 % 0-5 [facility] Erythrocyte distribution wid th ratioOrdered By: Aashish Thomas on 07-21-2024 Erythrocyte distribution width (RBC) [Ratio] 13.0 % 11.6-14.6 [facility] Erythrocyte distribution wid th standard deviationOrdered By: Aashish Thomas on 07-21-2024 Erythrocyte distribution width (RBC) [Ratio] 42.7 fl 35.1-43.9 [facility] Glomerular filtration rate ( GFR) estimationOrdered By: Aashish Thomas on 07-21-2024 GFR/1.73 sq M.predicted among non-blacks MDRD (S/P/Bld) [Vol rate/Area] 132 mL/min/{1.73_m2} >60 [facility] Comment on above: Non- GFR Calc Glucose measurementOrdered B y: Aashish Thomas on 07-21-2024 Glucose [Mass/Vol] 90 mg/dL 74-106 [facility] Hematocrit Auto (Bld) [Volum e fraction]Ordered By: Aashish Thomas on 07-21-2024 Hematocrit (Bld) [Volume fraction] 40.1 % 37-47 [facility] Hemoglobin measurementOrdere d By: Aashish Thomas on 07-21-2024 Hemoglobin (Bld) [Mass/Vol] 13.1 g/dL 12.0-15.0 [facility] Immature granulocytes/100 WB C Auto (Bld)Ordered By: Aashish Thomas on 07-21-2024 Immature granulocytes/100 WBC (Bld) 0.400 % 0.0-0.9 [facility] Comment on above: IG% - Immature Granu locytes (promyelocytes, myelocytes and metamyelocytes) > 1% indicates that a LEFT SHIFT is Present. Ketones Test strip Ql (U)Ord ered By: Aashish Thomas on 07-21-2024 Ketones Ql (U) Negative Negative [facility] Laboratory - Chemistry and C hemistry - challengeOrdered By: Aashish Thomas on 07-21-2024 AST [Catalytic activity/Vol] 31 U/L 15-37 [facility] MCV (mean corpuscular volume ) determinationOrdered By: Aashish Thomas on 07-21-2024 MCV (RBC) [Entitic vol] 89.1 fL 81-99 [facility] Mean corpuscular hemoglobin (MCH) determinationOrdered By: Aashish Thomas on 07-21-2024 MCH (RBC) [Entitic mass] 29.1 pg 27.0-32.0 [facility] Mean corpuscular hemoglobin concentration (MCHC) determinationOrdered By: Aashish Thomas on 07-21-2024 MCHC (RBC) [Mass/Vol] 32.7 g/dL 32-36 [facility] Mean platelet volume determi nationOrdered By: Aashish Thomas on 07-21-2024 Platelet mean volume (Bld) [Entitic vol] 8.6 fL 6.2-12.0 [facility] Microscopic analysis of urin e for red blood cells (RBC)Ordered By: Aashish Thomas on 07-21-2024 Microscopic analysis of urine for red blood cells (RBC) 0-5 SEEN /hpf 0-5 [facility] Monocyte percentageOrdered B y: Aashish Thomas on 07-21-2024 Monocytes/100 WBC (Bld) 5.2 % 0-10 [facility] Mucus LM Ql (Urine sed)Order ed By: Aashish Thomas on 07-21-2024 Mucus Ql (Urine sed) 0 SEEN /hpf [facility] Neutrophil percentageOrdered By: Aashish Thomas on 07-21-2024 Neutrophils/100 WBC (Bld) 89.4 % High 47-70 [facility] Nitrite Test strip Ql (U)Ord ered By: Aashish Thomas on 07-21-2024 Nitrite Ql (U) Negative Negative [facility] Nucleated red blood cell per centageOrdered By: Aashish Thomas on 07-21-2024 Nucleated RBC/100 WBC (Bld) [Ratio] 0 % 0-5 [facility] Platelet countOrdered By: Malick Thomas on 07-21-2024 Platelets (Bld) [#/Vol] 307 10*3/uL 150-450 [facility] Potassium measurementOrdered By: Aashish Thomas on 07-21-2024 Potassium [Moles/Vol] 3.3 mmol/L Low 3.5-5.1 [facility] Protein Test strip Ql (U)Ord ered By: Aashish Thomas on 07-21-2024 Protein Ql (U) Negative Negative [facility] RBC Auto (Bld) [#/Vol]Ordere d By: Aashish Thomas on 07-21-2024 RBC (Bld) [#/Vol] 4.50 10*6/uL 4.2-5.4 [facility] Serum anion gap measurementO rdered By: Aashish Thomas on 07-21-2024 Anion gap [Moles/Vol] 7 mmol/L 5-15 [facility] Serum globulin measurementOr dered By: Aashish Thomas on 07-21-2024 Globulin (S) [Mass/Vol] 3.8 g/dL 2.2-4.2 [facility] Serum or plasma alanine noland otransferase (ALT) measurementOrdered By: Aashish Thomas on 07-21-2024 ALT [Catalytic activity/Vol] 38 U/L 13-56 [facility] Serum or plasma albumin puma urement (mass/volume)Ordered By: Aashish Thomas on 07-21-2024 Albumin [Mass/Vol] 3.1 g/dL Low 3.2-5.0 [facility] Serum or plasma alkaline coby sphatase measurementOrdered By: Aashish Thomas on 07-21-2024 ALP [Catalytic activity/Vol] 91 U/L 45-117 [facility] Serum or plasma calcium puma urement (mass/volume)Ordered By: Aashish Thomas on 07-21-2024 Calcium [Mass/Vol] 8.7 mg/dL 8.5-10.1 [facility] Serum or plasma creatinine m easurement (mass/volume)Ordered By: Aashish Thomas on 07-21-2024 Creatinine [Mass/Vol] 0.60 mg/dL 0.55-1.02 [facility] Comment on above: The validity of the calculated GFR & GFRAA in patients over 70 years has not been determined. Clinical correlation is essential. Serum or plasma urea nitroge n measurement (mass/volume)Ordered By: Aashish Thomas on 07-21-2024 Urea nitrogen [Mass/Vol] 6 mg/dL Low 7-18 [facility] Sodium levelOrdered By: Aashish Thomas on 07-21-2024 Sodium [Moles/Vol] 138 mmol/L 136-145 [facility] Squamous epithelial cells de tection in urine sediment by light microscopyOrdered By: Aashish Thomas on 07-21-2024 Epithelial cells.squamous LM Ql (Urine sed) 0 SEEN /hpf 5-10 [facility] Total proteinOrdered By: Tanesha Thomas on 07-21-2024 Protein [Mass/Vol] 6.9 g/dL 6.4-8.2 [facility] Urinalysis, Completeon 07-21 RBC 0-5 SEEN Normal 0-5 [facility] Comment on above: Order Comment: CLEAN CATCH Performed By: #### L 400.0001 #### [facility] Laboratory [facility], [address] BACTERIA 0 SEEN Normal None Seen [facility] Comment on above: Order Comment: CLEAN CATCH Performed By: #### L 400.0001 #### [facility] [address] [place], [address] EPI,SQUAMOUS 0 SEEN Normal 5-10 [facility] Comment on above: Order Comment: CLEAN CATCH Performed By: #### L 400.0001 #### [facility] [address] [place], [address] Mucus Ql (Urine sed) 0 SEEN Normal [facility] Comment on above: Order Comment: CLEAN CATCH Performed By: #### L 400.0001 #### [facility] [address] [place], [address] WBC 0 SEEN Normal 0-5 [facility] Comment on above: Order Comment: CLEAN CATCH Performed By: #### L 400.0001 #### [facility] [address] [place], [address] Urine clarityOrdered By: Tanesha Thomas on 07-21-2024 Clarity (U) Sl. Cloudy Clear [facility] Urine color determinationOrd ered By: Aashish Thomas on 07-21-2024 Color (U) Yellow Yellow [facility] Urine glucose detectionOrder ed By: Aashish Thomas on 07-21-2024 Glucose Ql (U) Normal mg/dl Normal [facility] Urine leukocyte esterase det ection by dipstickOrdered By: Aashish Thomas on 07-21-2024 Leukocyte esterase Test strip Ql (U) Negative Negative [facility] Urine pHOrdered By: Aashish wagner on 07-21-2024 pH (U) 7.0 [pH] 5.0 - 8.0 [facility] Urine sediment bacteria coun t by microscopy (number/high power field)Ordered By: Aashish Thomas on 07-21-2024 Bacteria LM.HPF (Urine sed) [#/Area] 0 /[HPF] None Seen [facility] Urine specific gravity measu rementOrdered By: Aashish Thomas on 07-21-2024 Specific gravity (U) [Rel density] 1.005 1.002-1.030 [facility] Urine urobilinogen measureme ntOrdered By: Aashish Thomas on 07-21-2024 Urobilinogen Ql (U) Normal mg/dl Normal [facility] White blood cell (WBC) count Ordered By: Aashish Thomas on 07-21-2024 WBC (Bld) [#/Vol] 10.0 10*3/uL 4.4-11.0 [facility] White blood cell countOrdere d By: Aashish Thomas on 07-21-2024 White blood cell count 0 SEEN /hpf 0-5 [facility] PAP I-G w/rfx hrHPV-Aptimaon 07-09-2024 ADEQ Comment Normal . [facility] Comment on above: Order Comment: Speci men Comment: [id number] Comment: Source.............CervixSpecimen Comment: Other..............Specimen Comment: No. of containers..01 ThinPrep Vial Result Comment: Sati sfactory for evaluation. No endocervical component is identified. An endocervical component is not commonly seen in the patient. Performed By: #### L 7000.1800, L509.8000, L3890.6005, L100.0100, BTS, L7400.0353, L900.0098, L501.9985, L509.4005, L3890.6300, L3890.6100 ####[facility] [address] [place], [address] COMM . Normal . [facility] Comment on above: Order Comment: Speci men Comment: [id number] Comment: Source.............CervixSpecimen Comment: Other..............Specimen Comment: No. of containers..01 ThinPrep Vial Performed By: #### L 7000.1800, L509.8000, L3890.6005, L100.0100, BTS, L7400.0353, L900.0098, L501.9985, L509.4005, L3890.6300, L3890.6100 ####[facility] [address] [place], [place], [address] COMMENT Comment Normal . [facility] Comment on above: Order Comment: Speci men Comment: [id number] Comment: Source.............CervixSpecimen Comment: Other..............Specimen Comment: No. of containers..01 ThinPrep Vial Result Comment: This liquid based ThinPrep(R) pap test was screened with the use of an image guided system. Performed By: #### L 7000.1800, L509.8000, L3890.6005, L100.0100, BTS, L7400.0353, L900.0098, L501.9985, L509.4005, L3890.6300, L3890.6100 ####[facility] [address] [place], [place], [address] DIAG Comment Normal . [facility] Comment on above: Order Comment: Speci men Comment: [id number] Comment: Source.............CervixSpecimen Comment: Other..............Specimen Comment: No. of containers..01 ThinPrep Vial Result Comment: NEGA TIVE FOR INTRAEPITHELIAL LESION OR MALIGNANCY. THIS SPECIMEN WAS RESCREENED PART OF OUR CHIROPRACTIC ASSISTANT PROGRAM. Performed By: #### L 7000.1800, L509.8000, L3890.6005, L100.0100, BTS, L7400.0353, L900.0098, L501.9985, L509.4005, L3890.6300, L3890.6100 ####[facility] [address] [place], [place], [address] HPV RFLX Comment Normal . [facility] Comment on above: Order Comment: Speci men Comment: [id number] Comment: Source.............CervixSpecimen Comment: Other..............Specimen Comment: No. of containers..01 ThinPrep Vial Result Comment: The HPV DNA reflex criteria were not met with this specimen result therefore, no HPV testing was performed. Performed at: [address] [id number] Manager Cath Lab: Em Ramirez MD, Phone: [phone] Performed By: #### L 7000.1800, L509.8000, L3890.6005, L100.0100, BTS, L7400.0353, L900.0098, L501.9985, L509.4005, L3890.6300, L3890.6100 ####[facility] [address] [facility]. [place], [place], [address] PAPSMR Comment Normal . [facility] Comment on above: Order Comment: Speci men Comment: [id number] Comment: Source.............CervixSpecimen Comment: Other..............Specimen Comment: No. of [...] BTS, L7400.0353, L900.0098, L501.9985, L509.4005, L3890.6300, L3890.6100 ####[facility] [address] [place], [place], [id number] PERFORM Comment Normal . [facility] Comment on above: Order Comment: Speci men Comment: [id number] Comment: Source.............CervixSpecimen Comment: Other..............Specimen Comment: No. of containers..01 ThinPrep Vial Result Comment: Freddie Cassidy, Boiler Attendant (ASCP) Performed By: #### L 7000.1800, L509.8000, L3890.6005, L100.0100, BTS, L7400.0353, L900.0098, L501.9985, L509.4005, L3890.6300, L3890.6100 ####[facility] [address] [place], [address] QC REV Comment Normal . [facility] Comment on above: Order Comment: Speci men Comment: [id number] Comment: Source.............CervixSpecimen Comment: Other..............Specimen Comment: No. of containers..01 ThinPrep Vial Result Comment: Jada Roa, Boiler Attendant (ASCP) Performed By: #### L 7000.1800, L509.8000, L3890.6005, L100.0100, BTS, L7400.0353, L900.0098, L501.9985, L509.4005, L3890.6300, L3890.6100 ####[facility] [address] [place], [place], [address] Chlamydia/GC JOSE aptimaon CHLAMY,NUC ACID Negative Normal Negative [facility] Comment on above: Performed By: #### L 7000.1800, L509.8000, L3890.6005, L100.0100, BTS, L7400.0353, L900.0098, L501.9985, L509.4005, L3890.6300, L3890.6100 ####[facility] [address] [place], [place], [address] GC BY NUC ACID Negative Normal Negative [facility] Comment on above: Result Comment: Perf ormed at: =G - [facility] [address] [place], [place] [id number] Manager Cath Lab: Em Ramirez MD, Phone: [phone] Performed By: #### L 7000.1800, L509.8000, L3890.6005, L100.0100, BTS, L7400.0353, L900.0098, L501.9985, L509.4005, L3890.6300, L3890.6100 ####[facility] [address] [place], [place], [phone] Urine Cultureon 07-03-2024 URC Culture exhibits no growth. Normal [facility] Comment on above: Performed By: #### M 100.2200 #### [facility] [address] [place], [place], [id number] Absolute lymphocyte countOrd ered By: Lashay Tellez on 07-02-2024 Lymphocytes Auto (Unsp spec) [#/Vol] 1.71 10*3/uL 0.83-4.51 [facility] Absolute neutrophil countOrd ered By: Lashay Tellez on 07-02-2024 Neutrophils (Bld) [#/Vol] 7.5 10*3/uL 2.0-7.7 [facility] Automated lymphocyte count a s percentage of total leukocytesOrdered By: Lashay Tellez on 07-02-2024 Lymphocytes/100 WBC Auto (Unsp spec) 17.3 % Low 19-41 [facility] Basophil percentageOrdered B y: Lashay Tellez on 07-02-2024 Basophils/100 WBC (Bld) 0.3 % 0-1 [facility] CBC W/Diff, Automatedon 01-2 0-2024 Absolute Lymph 1.71 X10 3/uL Normal 0.83-4.51 [facility] Comment on above: Performed By: #### L 7000.1800, L509.8000, L3890.6005, L100.0100, BTS, L7400.0353, L900.0098, L501.9985, L509.4005, L3890.6300, L3890.6100 #### [facility] [address] [place], [address] Absolute Neut 7.5 X10 3/uL Normal 2.0-7.7 [facility] Comment on above: Performed By: #### L 7000.1800, L509.8000, L3890.6005, L100.0100, BTS, L7400.0353, L900.0098, L501.9985, L509.4005, L3890.6300, L3890.6100 #### [facility] [address] [place], [address] Basophils/100 WBC (Bld) 0.3 % Normal 0-1 [facility] Comment on above: Performed By: #### L 7000.1800, L509.8000, L3890.6005, L100.0100, BTS, L7400.0353, L900.0098, L501.9985, L509.4005, L3890.6300, L3890.6100 #### [facility] [address] [place], [address] Eosinophils/100 WBC (Bld) 0.3 % Normal 0-5 [facility] Comment on above: Performed By: #### L 7000.1800, L509.8000, L3890.6005, L100.0100, BTS, L7400.0353, L900.0098, L501.9985, L509.4005, L3890.6300, L3890.6100 #### [facility] [address] [facility]. [place], [place], [address] Erythrocyte distribution width (RBC) [Ratio] 13.1 % Normal 11.6-14.6 [facility] Comment on above: Performed By: #### L 7000.1800, L509.8000, L3890.6005, L100.0100, BTS, L7400.0353, L900.0098, L501.9985, L509.4005, L3890.6300, L3890.6100 #### [facility] [address] [place], [address] (002) Hematocrit (Bld) [Volume fraction] 44.3 % Normal 37-47 [facility] Comment on above: Performed By: #### L 7000.1800, L509.8000, L3890.6005, L100.0100, BTS, L7400.0353, L900.0098, L501.9985, L509.4005, L3890.6300, L3890.6100 #### [facility] [address] [facility] [place], [address] Hemoglobin (Bld) [Mass/Vol] 14.1 g/dL Normal 12.0-15.0 [facility] Comment on above: Performed By: #### L 7000.1800, L509.8000, L3890.6005, L100.0100, BTS, L7400.0353, L900.0098, L501.9985, L509.4005, L3890.6300, L3890.6100 #### [facility] [address] [facility] [place], [address] IG% 0.300 Normal 0.0-0.9 [facility] Comment on above: Result Comment: IG% - Immature Granulocytes (promyelocytes, myelocytes and metamyelocytes) > 1% indicates that a LEFT SHIFT is Present. Performed By: #### L 7000.1800, L509.8000, L3890.6005, L100.0100, BTS, L7400.0353, L900.0098, L501.9985, L509.4005, L3890.6300, L3890.6100 #### [facility] [address] [place], [address] Lymphocytes/100 WBC (Bld) 17.3 % Low 19-41 [facility] Comment on above: Performed By: #### L 7000.1800, L509.8000, L3890.6005, L100.0100, BTS, L7400.0353, L900.0098, L501.9985, L509.4005, L3890.6300, L3890.6100 #### [facility] [address] [facility] [place], [address] MCH (RBC) [Entitic mass] 28.7 pg Normal 27.0-32.0 [facility] Comment on above: Performed By: #### L 7000.1800, L509.8000, L3890.6005, L100.0100, BTS, L7400.0353, L900.0098, L501.9985, L509.4005, L3890.6300, L3890.6100 #### [facility] [address] [facility] [place], [address] MCHC (RBC) [Mass/Vol] 31.8 g/dL Low 32-36 [facility] Comment on above: Performed By: #### L 7000.1800, L509.8000, L3890.6005, L100.0100, BTS, L7400.0353, L900.0098, L501.9985, L509.4005, L3890.6300, L3890.6100 #### [facility] [address] [facility] [place], [address] MCV (RBC) [Entitic vol] 90.0 fL Normal 81-99 [facility] Comment on above: Performed By: #### L 7000.1800, L509.8000, L3890.6005, L100.0100, BTS, L7400.0353, L900.0098, L501.9985, L509.4005, L3890.6300, L3890.6100 #### [facility] [address] [place], [address] Monocytes/100 WBC (Bld) 5.6 % Normal 0-10 [facility] Comment on above: Performed By: #### L 7000.1800, L509.8000, L3890.6005, L100.0100, BTS, L7400.0353, L900.0098, L501.9985, L509.4005, L3890.6300, L3890.6100 #### [facility] [address] [facility] [place], [address] Neutrophils/100 WBC (Bld) 76.2 % High 47-70 [facility] Comment on above: Performed By: #### L 7000.1800, L509.8000, L3890.6005, L100.0100, BTS, L7400.0353, L900.0098, L501.9985, L509.4005, L3890.6300, L3890.6100 #### [facility] [address] [facility] [place], [address] Nucleated RBC (Bld) [#/Vol] 0 10*3/uL Normal 0-5 [facility] Comment on above: Performed By: #### L 7000.1800, L509.8000, L3890.6005, L100.0100, BTS, L7400.0353, L900.0098, L501.9985, L509.4005, L3890.6300, L3890.6100 #### [facility] [address] [facility] [place], [address] Platelet mean volume (Bld) [Entitic vol] 8.8 fL Normal 6.2-12.0 [facility] Comment on above: Performed By: #### L 7000.1800, L509.8000, L3890.6005, L100.0100, BTS, L7400.0353, L900.0098, L501.9985, L509.4005, L3890.6300, L3890.6100 #### [facility] [address] [place], [address] (667) Platelets (Bld) [#/Vol] 428 10*3/uL Normal 150-450 [facility] Comment on above: Performed By: #### L 7000.1800, L509.8000, L3890.6005, L100.0100, BTS, L7400.0353, L900.0098, L501.9985, L509.4005, L3890.6300, L3890.6100 #### [facility] [address] [place], [place], [address] (139) RBC (Bld) [#/Vol] 4.92 10*6/uL Normal 4.2-5.4 [facility] Comment on above: Performed By: #### L 7000.1800, L509.8000, L3890.6005, L100.0100, BTS, L7400.0353, L900.0098, L501.9985, L509.4005, L3890.6300, L3890.6100 #### [facility] [address] [place], [place], [address] (939) RDW SD 42.9 fl Normal 35.1-43.9 [facility] Comment on above: Performed By: #### L 7000.1800, L509.8000, L3890.6005, L100.0100, BTS, L7400.0353, L900.0098, L501.9985, L509.4005, L3890.6300, L3890.6100 #### [facility] [address] [place], [address] WBC (Bld) [#/Vol] 9.9 10*3/uL Normal 4.4-11.0 [facility] Comment on above: Performed By: #### L 7000.1800, L509.8000, L3890.6005, L100.0100, BTS, L7400.0353, L900.0098, L501.9985, L509.4005, L3890.6300, L3890.6100 #### [facility] [address] [place], [address] Cervical or vagninal specime n microscopic examination by cytology stain (reported asOrdered By: Lashay Tellez on 07-02-2024 Cytology report Cyto stain Doc (Cvx/Vag) Comment . [facility] Comment on above: The [...] rRNA JOSE+probe Ql (Unsp spec) Negative Negative [facility] Eosinophil percentageOrdered By: Lashay Tellez on 07-02-2024 Eosinophils/100 WBC (Bld) 0.3 % 0-5 [facility] Erythrocyte distribution wid th ratioOrdered By: Lashay Tellez on 07-02-2024 Erythrocyte distribution width (RBC) [Ratio] 13.1 % 11.6-14.6 [facility] Erythrocyte distribution wid th standard deviationOrdered By: Lashay Tellez on 07-02-2024 Erythrocyte distribution width (RBC) [Ratio] 42.9 fl 35.1-43.9 [facility] HIV - WCHon 07-02-2024 HIV Non-Reactive Normal Nonreactive [facility] Comment on above: Order Comment: Reaso n for Exam: Performed By: #### L 7000.1800, L509.8000, L3890.6005, L100.0100, BTS, L7400.0353, L900.0098, L501.9985, L509.4005, L3890.6300, L3890.6100 ####[facility] [address] [place], [place], [address] HIV 1 and HIV-2 antibody ass ay with HIV-1 p24 antigen detectionOrdered By: Lashay Tellez on 07-02-2024 HIV 1+2 Ab+HIV1 p24 Ag IA Ql Non-Reactive Nonreactive [facility] Hematocrit Auto (Bld) [Volum e fraction]Ordered By: Lashay Tellez on 07-02-2024 Hematocrit (Bld) [Volume fraction] 44.3 % 37-47 [facility] Hemoglobin A1con 07-02-2024 HbA1c (Bld) [Mass fraction] 5.2 % Normal 3.8-5.6 [facility] Comment on above: Result Comment: Norm al < 5.7 % Prediabetic 5.7 - 6.4 % Diabetic >or= 6.5 % Please note range changes. Performed By: #### L 7000.1800, L509.8000, L3890.6005, L100.0100, BTS, L7400.0353, L900.0098, L501.9985, L509.4005, L3890.6300, L3890.6100 ####[facility] [address] [place], [place], [address] Hemoglobin A1c percentageOrd ered By: Lashay Tellez on 07-02-2024 HbA1c (Bld) [Mass fraction] 5.2 % 3.8-5.6 [facility] Comment on above: Normal < 5.7 % Predi abetic 5.7 - 6.4 % Diabetic >or= 6.5 % Please note range changes. Hemoglobin measurementOrdere d By: Lashay Tellez on 07-02-2024 Hemoglobin (Bld) [Mass/Vol] 14.1 g/dL 12.0-15.0 [facility] Hepatitis B Surface Antigeno n 07-02-2024 HEP B Surf Ag Non-Reactive Normal Nonreactive [facility] Comment on above: Order Comment: Reaso n for Exam: Performed By: #### L 7000.1800, L509.8000, L3890.6005, L100.0100, BTS, L7400.0353, L900.0098, L501.9985, L509.4005, L3890.6300, L3890.6100 ####[facility] [address] [place], [place], [address] Hepatitis C Antibodyon 07-02 Hepatitis C AB Non-Reactive Normal Nonreactive [facility] Comment on above: Order Comment: Reaso n for Exam: Result Comment: Non Reactive: < 0.8 Equivocal: >/= 0.8 to < 1.0 Reactive: >/= 1.0 The CDC requires that a reactive/equivocal HCV antibody result be sent out for confirmation. HCV Quant by PCR testing. Performed By: #### L 7000.1800, L509.8000, L3890.6005, L100.0100, BTS, L7400.0353, L900.0098, L501.9985, L509.4005, L3890.6300, L3890.6100 ####[facility] [address] [facility] [place], [place], [address] Immature granulocytes/100 WB C Auto (Bld)Ordered By: Lashay Tellez on 07-02-2024 Immature granulocytes/100 WBC (Bld) 0.300 % 0.0-0.9 [facility] Comment on above: IG% - Immature Granu locytes (promyelocytes, myelocytes and metamyelocytes) > 1% indicates that a LEFT SHIFT is Present. L509.8000on 07-02-2024 Syphilis Abs Non-Reactive Normal [facility] Comment on above: Order Comment: Reaso n for Exam: Performed By: #### L 7000.1800, L509.8000, L3890.6005, L100.0100, BTS, L7400.0353, L900.0098, L501.9985, L509.4005, L3890.6300, L3890.6100 ####[facility] [address] [place], [address] Laboratory - CytologyOrdered By: Lashay Tellez on 07-02-2024 Tin Tie Machine Operator Automatic Cyto stain Nom (Cvx/Vag) [ID] Comment . [facility] Comment on above: Escobar Cassidy, Dennis otechnologist (ASCP) Laboratory - Miscellaneous t estsOrdered By: Lashay Tellez on 07-02-2024 Service comment (Unsp spec) [Interp] . . [facility] MCV (mean corpuscular volume ) determinationOrdered By: Lashay Tellez on 07-02-2024 MCV (RBC) [Entitic vol] 90.0 fL 81-99 [facility] Mean corpuscular hemoglobin (MCH) determinationOrdered By: Lashay Tellez on 07-02-2024 MCH (RBC) [Entitic mass] 28.7 pg 27.0-32.0 [facility] Mean corpuscular hemoglobin concentration (MCHC) determinationOrdered By: Lashay Tellez on 07-02-2024 MCHC (RBC) [Mass/Vol] 31.8 g/dL Low 32-36 [facility] Mean platelet volume determi nationOrdered By: Lsahay Tellez on 07-02-2024 Platelet mean volume (Bld) [Entitic vol] 8.8 fL 6.2-12.0 [facility] Monocyte percentageOrdered B y: Lashay Tellez on 07-02-2024 Monocytes/100 WBC (Bld) 5.6 % 0-10 [facility] NATERAon 07-02-2024 NATURA SEE SCANNED REPORT Normal [facility] Comment on above: Performed By: #### L 7000.1800, L509.8000, L3890.6005, L100.0100, BTS, L7400.0353, L900.0098, L501.9985, L509.4005, L3890.6300, L3890.6100 #### [facility] [address] [place], [address] Neisseria gonorrhoeae nuclei c acid detection by amplified probe techniqueOrdered By: Lashay Tellez on 07-02-2024 N. gonorrhoeae DNA JOSE+probe Ql (Unsp spec) Negative Negative [facility] Comment on above: Performed at: =[address] [place] [id number] Director: Em Ramirez MD, Phone: [phone] Neutrophil percentageOrdered By: Lashay Tellez on 07-02-2024 Neutrophils/100 WBC (Bld) 76.2 % High 47-70 [facility] No Panel InformationOrdered By: Lashay Tellez on 07-02-2024 Pap Smear QC Review Comment . [facility] Comment on above: Ivanna Roa Cytot echnologist (ASCP) Pap Smear Specimen Adequacy Comment . [facility] Comment on above: Satisfactory for jessica luation. No endocervical component is identified.An endocervical component is not commonly seen in the patient. Nucleated red blood cell per centageOrdered By: Lashay Tellez on 07-02-2024 Nucleated RBC/100 WBC (Bld) [Ratio] 0 % 0-5 [facility] Social Work Nurse Office Visit Reporton 07-02-2024 Social Work Nurse Office Visit Report [facility] [address], [address] [place] [address] OFFICE VISIT Date of Service: 07/02/24 MR#: [id number] Acct: [id number] Name: CYDNEY BROWN Rep #: [id number] : 2000 Provider: Dr. 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 Normal [facility] Platelet countOrdered By: Darrell Tellez on 07-02-2024 Platelets (Bld) [#/Vol] 428 10*3/uL 150-450 [facility] RBC Auto (Bld) [#/Vol]Ordere d By: Lashay Tellez on 07-02-2024 RBC (Bld) [#/Vol] 4.92 10*6/uL 4.2-5.4 [facility] Rubella IgGon 07-02-2024 Rubella IgG Reactive Normal Nonreactive [facility] Comment on above: Order Comment: Reaso n for Exam: Result Comment: Anti body Results Interpretation of Immune Status Non Reactive Presumed Non-Immune Equivocal Equivocal Reactive Presumed Immune Performed By: #### L 7000.1800, L509.8000, L3890.6005, L100.0100, BTS, L7400.0353, L900.0098, L501.9985, L509.4005, L3890.6300, L3890.6100 ####[facility] [address] [place], [address] Serum Treponema species anti body detectionOrdered By: Lashay Tellez on 07-02-2024 Treponema sp Ab Ql (S) Non-Reactive [facility] Type AND Screenon 07-02-2024 Ab SCREEN GEL Negative Normal [facility] Comment on above: Order Comment: PN Performed By: #### L 7000.1800, L509.8000, L3890.6005, L100.0100, BTS, L7400.0353, L900.0098, L501.9985, L509.4005, L3890.6300, L3890.6100 ####[facility] [address] [place], [address] Urine cultureOrdered By: Elysia Tellez on 07-02-2024 Bacteria identified Cx Nom (U) Culture exhibits no growth. [facility] White blood cell (WBC) count Ordered By: Lashay Tellez on 07-02-2024 WBC (Bld) [#/Vol] 9.9 10*3/uL 4.4-11.0 [facility] Social Work Nurse Office Visit Reporton 05-21-2024 Social Work Nurse Office Visit Report [facility] [address], [address] [place] [address] OFFICE VISIT Date of Service: 05/21/24 MR#: [id number] Acct: [id number] Name: CYDNEY BROWN [place] Rep #: [id number] : 2000 Provider: NOEMÍ oakley Age/Sex: 24/F [place] [facility] [place]: Signed Intake Vital Signs 08/25/23 14:52 05/21/24 11:39 Height 5 ft 6 in 5 ft 6 in Weight: 187 lb 2 oz BMI 30.2 BP 110/74 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 Pattern Weaver Required: No Is patient in pain?: No [...] Social History household members: spouse current occupation: [employer] Smoking Status: Never smoker alcohol intake: never substance use type: does not use seatbelt use: always do you feel safe at home: Yes additional social history: - 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 Performed At: [facility] [address] [id number] Dian Reveles PhD Ph:[phone] Performed By: #### 1 [id number], GFR, TSHR, ANEU, CMP, CBC, ADIFF ####[address] [place] [address] [address] .Auto Diffon 12-08-2023 Basophil, Absolute 0.0 10 3/mcL Normal 0.0-0.2 [facility] ([place]) Comment on above: Performed By: #### 1 39565, GFR, TSHR, ANEU, CMP, CBC, ADIFF #### [address] [address] Basophils/100 WBC (Bld) 0.3 % Normal 0.0-2.5 A [facility] ([place]) Comment on above: Performed By: #### 1 17269, GFR, TSHR, ANEU, CMP, CBC, ADIFF #### [address] [address] Eosinophil, Absolute 0.0 10 3/mcL Normal 0.0-0.4 [facility] ([place]) Comment on above: Performed By: #### 1 61641, GFR, TSHR, ANEU, CMP, CBC, ADIFF #### [address] [address] Eosinophils/100 WBC (Bld) 0.7 % Normal 0.0-7.0 [facility] ([place]) Comment on above: Performed By: #### 1 17597, GFR, TSHR, ANEU, CMP, CBC, ADIFF #### [address] [address] Lymphocyte, Absolute 1.7 10 3/mcL Normal 0.8-3.9 [facility] ([place]) Comment on above: Performed By: #### 1 08708, GFR, TSHR, ANEU, CMP, CBC, ADIFF #### [address] [address] Lymphocytes/100 WBC (Bld) 26.7 % Normal 10.0-50.0 [facility] ([place]) Comment on above: Performed By: #### 1 36548, GFR, TSHR, ANEU, CMP, CBC, ADIFF #### [address] [address] Monocyte, Absolute 0.5 10 3/mcL Normal 0.2-1.0 [facility] ([place]) Comment on above: Performed By: #### 1 93291, GFR, TSHR, ANEU, CMP, CBC, ADIFF #### [address] [address] Monocytes/100 WBC (Bld) 7.4 % Normal 1.7-13.0 [facility] ([place]) Comment on above: Performed By: #### 1 98312, GFR, TSHR, ANEU, CMP, CBC, ADIFF #### [address] [address] Neutrophils/100 WBC (Bld) 64.9 % Normal 37.0-80.0 [facility] ([place]) Comment on above: Performed By: #### 1 57597, GFR, TSHR, ANEU, CMP, CBC, ADIFF #### [address] [address] .GFRon 12-08-2023 GFR 109 ml/min/1.73sqm Normal [facility] ([place]) Comment on above: Result Comment: GFR Population [...] mL/min/1.73 square meters Performed By: #### 1 69523, GFR, TSHR, ANEU, CMP, CBC, ADIFF #### [address] [address] GFR Non- 90 ml/min/1.73sqm Normal [facility] ([place]) Comment on above: Result Comment: GFR Population [...] mL/min/1.73 square meters Performed By: #### 1 95172, GFR, TSHR, ANEU, CMP, CBC, ADIFF #### [address] [place], [place] [address] .NEUABSon 12-08-2023 Neutrophil, Absolute 4.2 10 3/mcL Normal 2.9-6.2 [facility] ([place]) Comment on above: Performed By: #### 1 87118, GFR, TSHR, ANEU, CMP, CBC, ADIFF #### [place] [address] CBCon 12-08-2023 Erythrocyte distribution width (RBC) [Ratio] 13.6 % Normal 11.5-14.5 [facility] ([place]) Comment on above: Performed By: #### 1 24996, GFR, TSHR, ANEU, CMP, CBC, ADIFF #### [place] [address] Hematocrit (Bld) [Volume fraction] 46.1 % Normal 37.0-47.0 [facility] ([place]) Comment on above: Performed By: #### 1 24165, GFR, TSHR, ANEU, CMP, CBC, ADIFF #### [place] [address] Hgb 15.4 G/dL Normal 12.0-16.0 [facility] ([place]) Comment on above: Performed By: #### 1 48321, GFR, TSHR, ANEU, CMP, CBC, ADIFF #### [place] [address] MCH (RBC) [Entitic mass] 29.8 pg Normal 27.0-31.2 [facility] ([place]) Comment on above: Performed By: #### 1 48329, GFR, TSHR, ANEU, CMP, CBC, ADIFF #### [place] [address] MCHC 33.5 G/dL Normal 33.0-37.0 [facility] ([place]) Comment on above: Performed By: #### 1 49124, GFR, TSHR, ANEU, CMP, CBC, ADIFF #### [place] [address] MCV (RBC) [Entitic vol] 89.0 fL Normal 80.0-94.0 A [facility] ([place]) Comment on above: Performed By: #### 1 08715, GFR, TSHR, ANEU, CMP, CBC, ADIFF #### [address] [address] Platelet 380 10 3/mcL Normal 130-400 [facility] ([place]) Comment on above: Performed By: #### 1 50632, GFR, TSHR, ANEU, CMP, CBC, ADIFF #### [address] [address] Platelet mean volume (Bld) [Entitic vol] 7.3 fL Low 7.4-10.4 [facility] ([place]) Comment on above: Performed By: #### 1 16937, GFR, TSHR, ANEU, CMP, CBC, ADIFF #### [address] [address] RBC 5.18 10 6/mcL Normal 4.20-5.40 [facility] ([place]) Comment on above: Performed By: #### 1 87147, GFR, TSHR, ANEU, CMP, CBC, ADIFF #### [address] [address] WBC 6.5 10 3/mcL Normal 4.6-10.8 [facility] ([place]) Comment on above: Performed By: #### 1 28084, GFR, TSHR, ANEU, CMP, CBC, ADIFF #### [address] [address] CMPon 12-08-2023 Albumin Level 3.9 G/dL Normal 3.5-5.0 [facility] ([place]) Comment on above: Performed By: #### 1 10486, GFR, TSHR, ANEU, CMP, CBC, ADIFF #### [address] [address] Albumin/Globulin [Mass ratio] 1.2 {ratio} Normal 1.1-2.5 [facility] ([place]) Comment on above: Performed By: #### 1 67901, GFR, TSHR, ANEU, CMP, CBC, ADIFF #### [address] [address] ALP [Catalytic activity/Vol] 102 U/L Normal 40-135 [facility] ([place]) Comment on above: Performed By: #### 1 44543, GFR, TSHR, ANEU, CMP, CBC, ADIFF #### [address] [address] ALT [Catalytic activity/Vol] 28 U/L Normal 14-59 [facility] ([place]) Comment on above: Performed By: #### 1 58476, GFR, TSHR, ANEU, CMP, CBC, ADIFF #### [address] [address] AST [Catalytic activity/Vol] 15 U/L Normal 10-40 [facility] ([place]) Comment on above: Performed By: #### 1 99786, GFR, TSHR, ANEU, CMP, CBC, ADIFF #### [address] [address] Bili Total 0.4 mg/dL Normal 0.2-1.0 [facility] ([place]) Comment on above: Result Comment: Use of this assay is not recommended for patients undergoing treatment with eltrombopag due to the potential for falsely elevated results. Performed By: #### 1 32635, GFR, TSHR, ANEU, CMP, CBC, ADIFF #### [address] [address] BUN/Creatinine Ratio 20 ratio Normal 7-27 [facility] ([place]) Comment on above: Performed By: #### 1 69954, GFR, TSHR, ANEU, CMP, CBC, ADIFF #### [address] [address] Calcium [Mass/Vol] 9.0 mg/dL Normal 8.4-10.2 [facility] ([place]) Comment on above: Performed By: #### 1 38973, GFR, TSHR, ANEU, CMP, CBC, ADIFF #### [address] [address] Chloride [Moles/Vol] 104 mmol/L Normal 98-107 [facility] ([place]) Comment on above: Performed By: #### 1 32179, GFR, TSHR, ANEU, CMP, CBC, ADIFF #### [address] [address] CO2 [Moles/Vol] 28 mmol/L Normal 22-29 [facility] ([place]) Comment on above: Performed By: #### 1 32732, GFR, TSHR, ANEU, CMP, CBC, ADIFF #### [address] [address] Creatinine [Mass/Vol] 0.80 mg/dL Normal 0.55-1.02 [facility] ([place]) Comment on above: Performed By: #### 1 94650, GFR, TSHR, ANEU, CMP, CBC, ADIFF #### [address] [address] Electrolyte Balance 8.0 mEq/L Normal 4.0-15.0 Pending sale to [facility] ([place]) Comment on above: Performed By: #### 1 42042, GFR, TSHR, ANEU, CMP, CBC, ADIFF #### [address] [address] Globulin 3.3 G/dL Normal [facility] ([place]) Comment on above: Performed By: #### 1 24297, GFR, TSHR, ANEU, CMP, CBC, ADIFF #### [address] [address] Glucose [Mass/Vol] 85 mg/dL Normal 70-105 [facility] ([place]) Comment on above: Performed By: #### 1 30420, GFR, TSHR, ANEU, CMP, CBC, ADIFF #### [address] [address] Potassium [Moles/Vol] 4.4 mmol/L Normal 3.5-5.1 [facility] ([place]) Comment on above: Performed By: #### 1 68926, GFR, TSHR, ANEU, CMP, CBC, ADIFF #### [address] [address] Sodium [Moles/Vol] 140 mmol/L Normal 136-145 [facility] ([place]) Comment on above: Performed By: #### 1 38918, GFR, TSHR, ANEU, CMP, CBC, ADIFF #### [address] [place], [place] [address] Total Protein 7.2 G/dL Normal 6.4-8.2 [facility] ([place]) Comment on above: Performed By: #### 1 73478, GFR, TSHR, ANEU, CMP, CBC, ADIFF #### [address] [address] Urea nitrogen [Mass/Vol] 16 mg/dL Normal 7-18 [facility] ([place]) Comment on above: Performed By: #### 1 13927, GFR, TSHR, ANEU, CMP, CBC, ADIFF #### [address] [address] TSHRon 12-08-2023 TSH Qn 0.91 m[IU]/L Normal 0.36-3.74 [facility] ([place]) Comment on above: Performed By: #### 1 69103, GFR, TSHR, ANEU, CMP, CBC, ADIFF #### [address] [address] [address] ABDOMEN/PELVIS W/CONTRAST on 10-04-2023 CT ABDOMEN/PELVIS [...] 10/04/2023 1:27:17 PM Ordering Provider: JENNIFFER Naranjo [facility] ([place]) HCG QUALITATIVE URINEon 09-11 Beta HCG ( test) Ql (U) Negative Normal Negative [facility] Comment on above: Order Comment: If no t on record less than 7 days and indicated. For female patients less than 55 years old and no history of hysterectomy. Result Comment: Plea note: Very dilute urine specimens, as indicated by a low specific gravity, may not contain physician relations representative levels of hCG. If is still suspected, a first morning urine specimen should be collected 48 hours later and tested. ORDER COMMENTS: is the most common reason for HCG in urine, although choriocarcinoma, hydatidiform mole, and certain nontrophoblastic malignancies also result in detectable urinary HCG levels. Sensitivity = 20mIU/mL. Performed By: #### L [id number] #### Solid [employer] Division Supervisor: THEODORE BRITTON ([phone]) [facility] [address] [place] [address] Laboratory - Chemistry and C hemistry - challengeOrdered By: Rula Michael on 09-29-2023 Beta HCG ( test) Ql Negative Negative [facility] Comment on above: Please note: Very di lute urine specimens, as indicated by a low specific gravity, may not contain physician relations representative levels of hCG. If is still suspected, a first morning urine specimen should be collected 48 hours later and tested. Beta HCG ( test) Ql (U) is the most common reason for HCG in urine, although choriocarcinoma, hydatidiform mole, and certain nontrophoblastic malignancies also result in detectable urinary HCG levels. Sensitivity = 20mIU/mL. [facility] No Panel InformationOrdered By: Rula Michael on 09-29-[address] [facility] Nursing Noteon 09-29-2023 Nursing Note Pt and family verbalized understanding of recovery instructions, pt verbalized a readiness to be discharged home. Pt discharged home via wheelchair accompanied by RN/volunteer. Pt has had all their belongings returned to them at discharge Normal [facility] Nursing Note Patient is transported to same day surgery for discharge and is brought to bedside. She is alert and has no complaints. Discharge instructions reviewed with pt and and she states she is ready to go home. Iv discontinued and report is given to [facility] Nursing Note Pt received from OR via cart, spont. Resp. With INTRAN[employer] SPECIALIST in attendance. Placed on monitor. Monitor alarms on in PACU [facility] Op Noteon 09-29-2023 Op Note OPERATIVE NOTE [...] patient tolerated the closed reduction without incident. [facility] Serum or plasma choriogonado tropin detectionOrdered By: Malathi Magdaleno on 09-27-2023 HCG ( test) Ql < 1 mIU/mL <4 [facility] Comment on above: hCG levels with Gest ational AgeGestational Age hCG mIU/mL (IU/L)0.2 - 1 week 5 - 501-2 weeks 50 - 5002-3 weeks 100 - 87534-9 weeks 500 - 860559-8 weeks 1000 - 711727-5 weeks 51432 - 100,0006-8 weeks 42544 - 200,0002-3 months 55512 - 100,000 PREPROCINSon 09-23-2023 PREPROCINS Medication List [...] your scheduled surgery time. Please bring your [facility] Surgical folder and medication list with you day of surgery. We encourage you to write down any questions you may have for the surgeon, anesthesiologist, or other members of the surgical team and bring it with you the day of surgery. Please bring photo ID and insurance information. [facility] Final Surgical Pathology Rep [facility] 02-08-2023 Final Surgical Pathology Report . Pathology Reports Accession: Collected Date/Time: Received Date/Time: Pathologist: [id number] 02/04/2023 07:35 EDT 02/07/2023 08:27 EDT HOANG [...] Electronically Signed by Pathology Report verified by [facility] HOANG CARRASCO Sign out Date: 02/08/2023 12:07 Performing Lab: [facility], [facility] [address] [place] [address] Pathology Dept Disclaimer If ancillary studies were utilized, the following Laboratory Developed Test (LDT) disclaimer will apply: Under CLIA requirements, [facility] Pathology Laboratory is qualified to perform high complexity testing. For all ancillary stains, positive and negative controls stain appropriately. Performance characteristics of immunohistochemical and chromogenic in-situ hybridization tests have been determined by [facility] Pathology Laboratory. These tests are used for clinical purposes, They should not be regarded as investigational or for research. Normal [facility] ([place]) US INTRAOPERATIVEon 02-05-20 US INTRAOPERATIVE ORIGINAL HISTORY: Retained products of conception COMPARISON: No IMPRESSION: Intraoperative ultrasound provided to the OBGYN service. Interpreted by: Cale Khanna MD Preliminary Report By: Cale Khanna MD Electronically signed By Cale Khanna MD Dictated Date: 02/04/2023 9:49:55 AM Prelim Date: 02/04/2023 9:50:31 AM Sign Date: 02/04/2023 9:50:31 AM Ordering Provider: MELISA ULLOA Normal [facility] ([place]) .Auto Diffon 02-02-2023 Basophil, Absolute 0.0 10 3/mcL Normal 0.0-0.2 [facility] ([place]) Comment on above: Performed By: #### A CHRISTAL, ADIFF, GFR, CMP, CBC ####[address] [address] Basophils/100 WBC (Bld) 0.5 % Normal 0.0-2.5 A [facility] ([place]) Comment on above: Performed By: #### A CHRISTAL, ADIFF, GFR, CMP, CBC ####[address] [address] Eosinophil, Absolute 0.0 10 3/mcL Normal 0.0-0.4 [facility] ([place]) Comment on above: Performed By: #### A CHRISTAL, ADIFF, GFR, CMP, CBC ####[address] [address] Eosinophils/100 WBC (Bld) 0.7 % Normal 0.0-7.0 [facility] ([place]) Comment on above: Performed By: #### A CHRISTAL, ADIFF, GFR, CMP, CBC ####[address] [address] Lymphocyte, Absolute 1.7 10 3/mcL Normal 0.8-3.9 [facility] ([place]) Comment on above: Performed By: #### A CHRISTAL, ADIFF, GFR, CMP, CBC ####[address] [address] Lymphocytes/100 WBC (Bld) 25.2 % Normal 10.0-50.0 [facility] ([place]) Comment on above: Performed By: #### A CHRISTAL, ADIFF, GFR, CMP, CBC ####[address] [address] Monocyte, Absolute 0.5 10 3/mcL Normal 0.2-1.0 [facility] ([place]) Comment on above: Performed By: #### A CHRISTAL, ADIFF, GFR, CMP, CBC ####[address] [address] Monocytes/100 WBC (Bld) 7.1 % Normal 1.7-13.0 [facility] ([place]) Comment on above: Performed By: #### A CHRISTAL, ADIFF, GFR, CMP, CBC ####[address] [address] Neutrophils/100 WBC (Bld) 66.5 % Normal 37.0-80.0 [facility] ([place]) Comment on above: Performed By: #### A CHRISTAL, ADIFF, GFR, CMP, CBC ####[address] [address] .GFRon 02-02-2023 GFR 100 ml/min/1.73sqm Normal [facility] ([place]) Comment on above: Result Comment: GFR Population [...] #### A CHRISTAL, ADIFF, GFR, CMP, CBC ####[place] [address] GFR Non- 82 ml/min/1.73sqm Normal [facility] ([place]) Comment on above: Result Comment: GFR Population [...] #### A CHRISTAL, ADIFF, GFR, CMP, CBC ####[place] [address] .NEUABSon 02-02-2023 Neutrophil, Absolute 4.4 10 3/mcL Normal 2.9-6.2 [facility] ([place]) Comment on above: Performed By: #### A CHRISTAL, ADIFF, GFR, CMP, CBC ####[place] [address] CBCon 02-02-2023 Erythrocyte distribution width (RBC) [Ratio] 14.3 % Normal 11.5-14.5 [facility] ([place]) Comment on above: Performed By: #### A CHRISTAL, ADIFF, GFR, CMP, CBC ####[place] [address] Hematocrit (Bld) [Volume fraction] 44.1 % Normal 37.0-47.0 [facility] ([place]) Comment on above: Performed By: #### A CHRISTAL, ADIFF, GFR, CMP, CBC ####[place] [address] Hgb 14.6 G/dL Normal 12.0-16.0 [facility] ([place]) Comment on above: Performed By: #### A CHRISTAL, ADIFF, GFR, CMP, CBC ####[place] [address] MCH (RBC) [Entitic mass] 28.9 pg Normal 27.0-31.2 [facility] ([place]) Comment on above: Performed By: #### A CHRISTAL, ADIFF, GFR, CMP, CBC ####[place] [address] MCHC 33.1 G/dL Normal 33.0-37.0 [facility] ([place]) Comment on above: Performed By: #### A CHRISTAL, ADIFF, GFR, CMP, CBC ####[place] [address] MCV (RBC) [Entitic vol] 87.4 fL Normal 80.0-94.0 [facility] ([place]) Comment on above: Performed By: #### A CHRISTAL, ADIFF, GFR, CMP, CBC ####[place] [address] Platelet 364 10 3/mcL Normal 130-400 [facility] ([place]) Comment on above: Performed By: #### A CHRISTAL, ADIFF, GFR, CMP, CBC ####[place] [address] Platelet mean volume (Bld) [Entitic vol] 7.1 fL Low 7.4-10.4 [facility] ([place]) Comment on above: Performed By: #### A CHRISTAL, ADIFF, GFR, CMP, CBC ####[address] [address] RBC 5.04 10 6/mcL Normal 4.20-5.40 [facility] ([place]) Comment on above: Performed By: #### A CHRISTAL, ADIFF, GFR, CMP, CBC ####[place] [address] WBC 6.6 10 3/mcL Normal 4.6-10.8 [facility] ([place]) Comment on above: Performed By: #### A CHRISTAL, ADIFF, GFR, CMP, CBC ####[place] [address] CMPon 02-02-2023 Albumin Level 3.8 G/dL Normal 3.5-5.0 [facility] ([place]) Comment on above: Performed By: #### A CHRISTAL, ADIFF, GFR, CMP, CBC ####[place] [address] Albumin/Globulin [Mass ratio] 1.1 {ratio} Normal 1.1-2.5 [facility] ([place]) Comment on above: Performed By: #### A CHRISTAL, ADIFF, GFR, CMP, CBC ####[place] [address] ALP [Catalytic activity/Vol] 117 U/L Normal 40-135 [facility] ([place]) Comment on above: Performed By: #### A CHRISTAL, ADIFF, GFR, CMP, CBC ####[place] [address] ALT [Catalytic activity/Vol] 29 U/L Normal 14-59 [facility] ([place]) Comment on above: Performed By: #### A CHRISTAL, ADIFF, GFR, CMP, CBC ####[place] [address] AST [Catalytic activity/Vol] 26 U/L Normal 10-40 [facility] ([place]) Comment on above: Performed By: #### A CHRISTAL, ADIFF, GFR, CMP, CBC ####[address] [address] Bili Total 0.4 mg/dL Normal 0.2-1.0 [facility] ([place]) Comment on above: Result Comment: Use of this assay is not recommended for patients undergoing treatment with eltrombopag due to the potential for falsely elevated results. Performed By: #### A CHRISTAL, ADIFF, GFR, CMP, CBC ####[place] [address] BUN/Creatinine Ratio 16 ratio Normal 7-27 [facility] ([place]) Comment on above: Performed By: #### A CHRISTAL, ADIFF, GFR, CMP, CBC ####[place] [address] Calcium [Mass/Vol] 8.7 mg/dL Normal 8.4-10.2 [facility] ([place]) Comment on above: Performed By: #### A CHRISTAL, ADIFF, GFR, CMP, CBC ####[place] [address] Chloride [Moles/Vol] 107 mmol/L Normal 98-107 [facility] ([place]) Comment on above: Performed By: #### A CHRISTAL, ADIFF, GFR, CMP, CBC ####[place] [address] CO2 [Moles/Vol] 28 mmol/L Normal 22-29 [facility] ([place]) Comment on above: Performed By: #### A CHRISTAL, ADIFF, GFR, CMP, CBC ####[place] [address] Creatinine [Mass/Vol] 0.87 mg/dL Normal 0.55-1.02 [facility] ([place]) Comment on above: Performed By: #### A CHRISTAL, ADIFF, GFR, CMP, CBC ####[place] [address] Electrolyte Balance 8.0 mEq/L Normal 4.0-15.0 Pending sale to [facility] ([place]) Comment on above: Performed By: #### A CHRISTAL, ADIFF, GFR, CMP, CBC ####[place] [address] Globulin 3.4 G/dL Normal [facility] ([place]) Comment on above: Performed By: #### A CHRISTAL, ADIFF, GFR, CMP, CBC ####[address] [address] Glucose [Mass/Vol] 82 mg/dL Normal 70-105 [facility] ([place]) Comment on above: Performed By: #### A CHRISTAL, ADIFF, GFR, CMP, CBC ####[address] [address] Potassium [Moles/Vol] 4.4 mmol/L Normal 3.5-5.1 [facility] ([place]) Comment on above: Performed By: #### A CHRISTAL, ADIFF, GFR, CMP, CBC ####[place] [address] Sodium [Moles/Vol] 143 mmol/L Normal 136-145 [facility] ([place]) Comment on above: Performed By: #### A CHRISTAL, ADIFF, GFR, CMP, CBC ####[address] [address] Total Protein 7.2 G/dL Normal 6.4-8.2 [facility] ([place]) Comment on above: Performed By: #### A CHRISTAL, ADIFF, GFR, CMP, CBC ####[address] [address] Urea nitrogen [Mass/Vol] 14 mg/dL Normal 7-18 [facility] ([place]) Comment on above: Performed By: #### A CHRISTAL, ADIFF, GFR, CMP, CBC ####[address] [address] LABORATORYOrdered By: SYSTEM SYSTEM on 02-02-2023 Albumin [...] PM Ordering Provider: JAXSON SIMMONS [facility] ([place]) LABORATORYOrdered By: SYSTEM SYSTEM on 12-10-2022 Hematocrit [...] 4.6 - 10.8 10^3/mcL AO Workflow SS Dzlih-9-Ltknwjqmfsmsc.p lacental Ql (Vag fld) Negative (12/08/22 3:55 AM) Invalid Interpretation Code Negative AO Rapid Testing SS LABORATORYOrdered By: Daniel Gentile on 12-08-2022 Reagin Ab RPR Ql (S) Non-Reactive (12/08/22 11:22 PM) Invalid Interpretation Code Non-Reactive AH Man Viro/Sero SS LABORATORYOrdered By: Frandy Yanez on 12-08-2022 ABO and Rh group Nom (Bld) O positive (12/08/22 10:42 PM) [facility] Work Phone: Group B Strep Date Performed [id number] [facility] Work Phone: Group B Strep, External Negative (12/08/22 10:42 PM) [facility] Work Phone: Hepatitis B Date Performed [id number] [facility] Work Phone: Hepatitis B, External Negative (12/08/22 10:42 PM) [facility] Work Phone: RPR, External Nonreactive (12/08/22 10:42 PM) [facility] Work Phone: Rubella, External Immune (12/08/22 10:42 PM) [facility] Work Phone: LABORATORYOrdered By: Getachew Tang on [...] definite cause of disease. Laboratories within the [place] and its territories are required to [...] CORONAVIRUS 2019,PCR NOT DETECTED Normal Not Detected [facility] Comment on above: Result Comment: This assay [...] patient management decisions. Fact sheet for providers: https://www.fda.gov/media/513021/download Fact sheet for patients: https://www.fda.gov/media/239616/download This test has received FDA Emergency Use [...] is terminated or revoked sooner. [facility] ([facility]) is certified under CLIA-88 as qualified to perform high complexity testing. This tests analytical performance characteristics have been determined by [facility]. Testing is performed at [facility] is located at [address] [place] [address] (CLIA License #[id number], CAP #[id number]). Performed By: #### C VCLA #### [facility] [address] [place] [address] COVID PCR, SCREENING CONGREG ATEon 12-04-2019 Lab Specimen Source Nasal, Nasopharyngeal Normal [facility] Comment on above: Performed By: #### C VCLA #### [facility] [address] [place] [address] CR Spine Lumbosacral 2 or 3 Viewson 07-21-2019 CR Spine Lumbosacral 2 or 3 Views Patient Name: CYDNEY RAMÍREZ Diagnostic Radiology Exam Date/Time 07/21/2019 19:54:42 EST Exam CR Spine Lumbosacral 2 or 3 Views Ordering Physician [facility] Accession Number [id number] CPT4 Codes 09490 () Reason For Exam back pain Report [...] Date and Time: 07/21/2019 8:11 Normal [facility] CR Spine Thoracic Minimum 4 Viewson 07-21-2019 CR Spine Thoracic Minimum 4 Views Patient Name: CYDNEY RAMÍREZ Diagnostic Radiology Exam Date/Time 07/21/2019 19:54:42 EST Exam CR Spine Thoracic Minimum 4 Views Ordering Physician MD COLEY VIJAY Accession Number [id number] CPT4 Codes 54161 () Reason For Exam injury Report THORACIC [...] Transcribed Date and Time: 07/21/2019 8:[address] [facility] XR LUMBAR SPINE (2-3 VIEWS)o n 07-21-2019 Patient Name: CYDNEY RAMÍREZ ---Diagnostic Radiology--- Exam Date/Time 07/21/2019 19:54:42 EST Exam CR Spine Lumbosacral 2 or 3 Views Ordering Physician MD COLEY VIJAY Accession Number [id number] CPT4 Codes 86209 () Reason For Exam back pain Report [...] NICHOLAS Transcribed Date and Time: 07/21/2019 8:11 [facility] Work Phone: [facility] Results From [facility] - 07/21/2019 8:11 PM EST Patient Name: CYDNEY RAMÍREZ ---Diagnostic Radiology--- Exam Date/Time 07/21/2019 19:54:42 EST Exam CR Spine Lumbosacral 2 or 3 Views Ordering Physician MD COLEY VIJAY Accession Number [id number] CPT4 Codes 12605 () Reason For Exam back pain Report [...] NICHOLAS Transcribed Date and Time: 07/21/2019 8:11 [facility] Work Phone: XR THORACIC SPINE (MIN 4 VIE WS)on 07-21-2019 Patient Name: CYDNEY RAMÍREZ ---Diagnostic Radiology--- Exam Date/Time 07/21/2019 19:54:42 EST Exam CR Spine Thoracic Minimum 4 Views Ordering Physician MD COLEY VIJAY Accession Number [id number] CPT4 Codes 33378 () Reason For Exam injury Report THORACIC [...] Phone: [facility], [facility] Incoming Radiology Results From [facility] - 07/21/2019 8:12 PM EST Patient Name: CYDNEY RAMÍREZ ---Diagnostic Radiology--- Exam Date/Time 07/21/2019 19:54:42 EST Exam CR Spine Thoracic Minimum 4 Views Ordering Physician MD BRIJESH, [facility] Accession Number [id number] CPT4 Codes 58352 () Reason For Exam injury Report THORACIC [...] 01-28-2025 10:31-0400 Body height 167.64 cm [facility] Work Phone: [facility] 01-28-2025 10:31-0400 Body mass index (BMI) [Ratio] 34.8 kg/m2 Jenniffer Perea [employer] Work Phone: [facility] 01-28-2025 10:31-0400 Body weight 97.97 kg Jenniffernorman Perea [employer] Work Phone: [facility] 01-28-2025 10:31-0400 Diastolic blood pressure 65 mm[Hg] Jenniffer Perea [employer] Work Phone: [facility] 01-28-2025 10:31-0400 Systolic blood pressure 118 mm[Hg] Jenniffer Perea [employer] Work Phone: [facility] 01-21-2025 14:02-0400 Body height 167.64 cm Jenniffer Perea [employer] Work Phone: [facility] 01-21-2025 13:59-0400 Body mass index (BMI) [Ratio] 34.5 kg/m2 Jenniffer Perea [employer] Work Phone: [facility] 01-21-2025 13:59-0400 Body weight 97.06 kg Jenniffer Lorson [employer] Work Phone: [facility] 01-21-2025 13:59-0400 Diastolic blood pressure 81 mm[Hg] Jenniffer Warnerson [employer] Work Phone: [facility] 01-21-2025 13:59-0400 Systolic blood pressure 116 mm[Hg] Jenniffer Perea [employer] Work Phone: [facility] 01-15-2025 14:26-0400 Body height 167.64 cm Jenniffer Perea [employer] Work Phone: [facility] 01-15-2025 14:26-0400 Body mass index (BMI) [Ratio] 34.4 kg/m2 Jenniffer Perea [employer] Work Phone: [facility] 01-15-2025 14:26-0400 Body weight 96.84 kg Jenniffer Perea [employer] Work Phone: [facility] 01-15-2025 14:26-0400 Diastolic blood pressure 76 mm[Hg] Jenniffer Perea [employer] Work Phone: [facility] 01-15-2025 14:26-0400 Systolic blood pressure 121 mm[Hg] Jenniffernorman Perea [employer] Work Phone: [facility] 01-07-2025 11:31-0400 Body height 167.64 cm Jenniffer Perea [employer] Work Phone: [facility] 01-07-2025 11:31-0400 Body mass index (BMI) [Ratio] 34.7 kg/m2 Jenniffer Perea [employer] Work Phone: [facility] 01-07-2025 11:31-0400 Body weight 97.57 kg Jenniffer Perea [employer] Work Phone: [facility] 01-07-2025 11:31-0400 Diastolic blood pressure 78 mm[Hg] Jenniffer Perea [employer] Work Phone: [facility] 01-07-2025 11:31-0400 Systolic blood pressure 119 mm[Hg] Jenniffer Perea [employer] Work Phone: [facility] 12-31-2024 09:41-0400 Body height 167.64 cm Jenniffer Perea [employer] Work Phone: [facility] 12-31-2024 09:41-0400 Body mass index (BMI) [Ratio] 34.4 kg/m2 Jenniffer Perea [employer] Work Phone: [facility] 12-31-2024 09:41-0400 Body weight 96.67 kg Jenniffer Perea [employer] Work Phone: [facility] 12-31-2024 09:41-0400 Diastolic blood pressure 68 mm[Hg] Jenniffer Perea [employer] Work Phone: [facility] 12-31-2024 09:41-0400 Systolic blood pressure 99 mm[Hg] Jenniffer Perea [employer] Work Phone: [facility] 12-25-2024 14:09-0400 Body temperature 97.9 [degF] Jenniffer Perea [employer] Work Phone: [facility] 12-25-2024 14:09-0400 Respiratory rate 17 /min Jenniffer Perea [employer] Work Phone: [facility] 12-25-2024 14:09-0400 SaO2% (BldA) [Mass fraction] 97 % Jenniffer Perea [employer] Work Phone: [facility] 12-25-2024 14:08-0400 Diastolic blood pressure 76 mm[Hg] Jenniffer Perea [employer] Work Phone: [facility] 12-25-2024 14:08-0400 Heart rate 107 /min Jenniffer Perea [employer] Work Phone: [facility] 12-25-2024 14:08-0400 Systolic blood pressure 121 mm[Hg] Jenniffer Perea [employer] Work Phone: [facility] 12-25-2024 13:53-0400 Body height 167.64 cm Jenniffer Perea [employer] Work Phone: [facility] 12-25-2024 13:53-0400 Body mass index (BMI) [Ratio] 34.3 kg/m2 Jenniffer Perea [employer] Work Phone: [facility] 12-25-2024 13:53-0400 Body weight 96.61 kg Jenniffer Perea [employer] Work Phone: [facility] 12-17-2024 09:39-0400 Body height 167.64 cm Jenniffer Perea [employer] Work Phone: [facility] 12-17-2024 09:32-0400 Body mass index (BMI) [Ratio] 34.5 kg/m2 Jenniffer Perea [employer] Work Phone: [facility] 12-17-2024 09:32-0400 Body weight 97.18 kg Jenniffer Perea [employer] Work Phone: [facility] 12-17-2024 09:32-0400 Diastolic blood pressure 80 mm[Hg] Jenniffer Perea [employer] Work Phone: [facility] 12-17-2024 09:32-0400 Systolic blood pressure 104 mm[Hg] Jenniffer Perea [employer] Work Phone: [facility] 12-13-2024 14:10-0400 Heart rate 101 /min Jenniffer Perea [employer] Work Phone: [facility] 12-13-2024 14:10-0400 SaO2% (BldA) [Mass fraction] 94 % Jenniffer Perea [employer] Work Phone: [facility] 12-13-2024 14:08-0400 Diastolic blood pressure 67 mm[Hg] Jenniffer Perea [employer] Work Phone: [facility] 12-13-2024 14:08-0400 Systolic blood pressure 117 mm[Hg] Jenniffer Perea [employer] Work Phone: [facility] 12-03-2024 09:11-0400 Body height 167.64 cm Jenniffer Perea [employer] Work Phone: [facility] 12-03-2024 09:10-0400 Body mass index (BMI) [Ratio] 34.7 kg/m2 Jenniffer Perea [employer] Work Phone: [facility] 12-03-2024 09:10-0400 Body weight 97.52 kg Jenniffer Perea [employer] Work Phone: [facility] 12-03-2024 09:10-0400 Diastolic blood pressure 86 mm[Hg] Jenniffer Perea [employer] Work Phone: [facility] 12-03-2024 09:10-0400 Systolic blood pressure 127 mm[Hg] Jenniffer Perea [employer] Work Phone: [facility] 11-19-2024 08:30-0400 Body height 167.64 cm Jenniffer Perea [employer] Work Phone: [facility] 11-19-2024 08:30-0400 Body mass index (BMI) [Ratio] 34.6 kg/m2 Jenniffer Perea [employer] Work Phone: [facility] 11-19-2024 08:30-0400 Body weight 97.23 kg Jenniffer Perea [employer] Work Phone: [facility] 11-19-2024 08:30-0400 Diastolic blood pressure 64 mm[Hg] Jenniffer Perea [employer] Work Phone: [facility] 11-19-2024 08:30-0400 Systolic blood pressure 102 mm[Hg] Jenniffer Perea [employer] Work Phone: [facility] 11-06-2024 09:54-0400 Body height 167.64 cm Jenniffer Perea [employer] Work Phone: [facility] 11-06-2024 09:54-0400 Body mass index (BMI) [Ratio] 34.5 kg/m2 Jenniffer Perea [employer] Work Phone: [facility] 11-06-2024 09:54-0400 Body weight 97.12 kg Jenniffer Perea [employer] Work Phone: [facility] 11-06-2024 09:54-0400 Diastolic blood pressure 51 mm[Hg] Jenniffer Perea [employer]PER[employer] Work Phone: [facility] 11-06-2024 09:54-0400 Systolic blood pressure 103 mm[Hg] Jenniffer Perea [employer] Work Phone: [facility] 10-29-2024 00:08-0400 Respiratory rate 20 /min Jenniffer Perea [employer] Work Phone: [facility] 10-28-2024 23:58-0400 Body temperature 98.7 [degF] Jenniffer Perea [employer] Work Phone: [facility] 10-28-2024 23:58-0400 Diastolic blood pressure 62 mm[Hg] Jenniffer Perea [employer] Work Phone: [facility] 10-28-2024 23:58-0400 Heart rate 95 /min Jenniffer Perea [employer] Work Phone: [facility] 10-28-2024 23:58-0400 SaO2% (BldA) [Mass fraction] 96 % Jenniffer Perea [employer] Work Phone: [facility] 10-28-2024 23:58-0400 Systolic blood pressure 118 mm[Hg] Jenniffer Perea [employer] Work Phone: [facility] 10-28-2024 23:52-0400 Body height 167.64 cm Jenniffer Perea [employer] Work Phone: [facility] 10-28-2024 23:52-0400 Body mass index (BMI) [Ratio] 34.4 kg/m2 Jenniffer Perea [employer] Work Phone: [facility] 10-28-2024 23:52-0400 Body weight 96.79 kg Jenniffer Perea [employer] Work Phone: [facility] 10-22-2024 12:58-0400 Body height 167.64 cm Jenniffer Perea [employer] Work Phone: [facility] 10-22-2024 12:58-0400 Body mass index (BMI) [Ratio] 33.7 kg/m2 Jenniffer Perea [employer] Work Phone: [facility] 10-22-2024 12:58-0400 Body weight 94.85 kg Jenniffer Perea [employer] Work Phone: [facility] 10-22-2024 12:58-0400 Diastolic blood pressure 66 mm[Hg] Jenniffer Perea [employer]PER[employer] Work Phone: [facility] 10-22-2024 12:58-0400 Systolic blood pressure 98 mm[Hg] Jenniffer Perea [employer]PER[employer] Work Phone: [facility] 09-24-2024 09:00-0400 Body mass index (BMI) [Ratio] 32.6 kg/m2 Jenniffer Perea [employer] Work Phone: [facility] 09-24-2024 09:00-0400 Body weight 91.79 kg Jenniffernorman Perea [employer] Work Phone: [facility] 09-24-2024 09:00-0400 Diastolic blood pressure 63 mm[Hg] Jenniffernorman Perea [employer]PER[employer] Work Phone: [facility] 09-24-2024 09:00-0400 Systolic blood pressure 100 mm[Hg] Jenniffer Perea [employer]PER[employer] Work Phone: [facility] 08-27-2024 14:38-0400 Body mass index (BMI) [Ratio] 32.4 kg/m2 Jenniffer Perea [employer] Work Phone: [facility] 08-27-2024 14:38-0400 Body weight 91.17 kg Jenniffer Lorson [employer]PER[employer]OR[employer] Work Phone: [facility] 08-27-2024 14:38-0400 Diastolic blood pressure 77 mm[Hg] Jenniffer Perea [employer] SUPER[employer]OR[employer] Work Phone: [facility] 08-27-2024 14:38-0400 Systolic blood pressure 115 mm[Hg] Jenniffer Perea [employer]PER[employer] Work Phone: [facility] 07-30-2024 13:15-0500 Body mass index (BMI) [Ratio] 31 kg/m2 Jenniffer Perea [employer] Work Phone: [facility] 07-30-2024 13:15-0500 Body weight 87.2 kg Jenniffer Perea [employer] Work Phone: [facility] 07-30-2024 13:15-0500 Diastolic blood pressure 77 mm[Hg] Jenniffer Perea [employer] Work Phone: [facility] 07-30-2024 13:15-0500 Systolic blood pressure 124 mm[Hg] Jenniffer Perea [employer] Work Phone: [facility] 07-21-2024 21:03-0500 Body temperature 96.1 [degF] Jenniffer Perea [employer] Work Phone: [facility] 07-21-2024 21:03-0500 Diastolic blood pressure 67 mm[Hg] Jenniffer Perea [employer]PER[employer] Work Phone: [facility] 07-21-2024 21:03-0500 Heart rate 108 /min Jenniffer Perea [employer] Work Phone: [facility] 07-21-2024 21:03-0500 Respiratory rate 16 /min Jenniffer Perea [employer] Work Phone: [facility] 07-21-2024 21:03-0500 SaO2% (BldA) [Mass fraction] 100 % Jenniffer Perea [employer] Work Phone: [facility] 07-21-2024 21:03-0500 Systolic blood pressure 106 mm[Hg] Jenniffer Perea [employer] SUPER[employer]OR[employer] Work Phone: [facility] 07-21-2024 18:34-0500 Body mass index (BMI) [Ratio] 31.6 kg/m2 Jenniffer Perea [employer] Work Phone: [facility] 07-21-2024 18:34-0500 Body weight 88.99 kg Jenniffer Perea [employer]PER[employer]OR[employer] Work Phone: [facility] 07-02-2024 10:17-0500 Body mass index (BMI) [Ratio] 30.4 kg/m2 Jenniffer Perea [employer] Work Phone: [facility] 07-02-2024 10:17-0500 Body weight 85.72 kg Jenniffer Perea [employer] SUPER[employer]OR[employer] Work Phone: [facility] 07-02-2024 10:17-0500 Diastolic blood pressure 76 mm[Hg] Jenniffer Perea [employer] SUPER[employer]OR[employer] Work Phone: [facility] 07-02-2024 10:17-0500 Systolic blood pressure 112 mm[Hg] Jenniffer DOWD Work Phone: [facility] 09-29-2023 11:06-0400 Body temperature 97.2 [degF] Radha Tyler [employer] Work Phone: [facility] [employer] 09-29-2023 11:06-0400 Diastolic blood pressure 73 mm[Hg] Radha Tyler [employer] Work Phone: [facility] 09-29-2023 11:06-0400 Heart rate 77 /min Radha Tyler DO Work Phone: [facility] 09-29-2023 11:06-0400 Respiratory rate 18 /min Radha Tyler [employer] Phone: [facility] 09-29-2023 11:06-0400 SaO2% (BldA) [Mass fraction] 100 % Radha Tyler DO Work Phone: [facility] [employer] 09-29-2023 11:06-0400 Systolic blood pressure 104 mm[Hg] Radha [employer] Phone: [facility] 09-29-2023 08:47-0400 Body height 167.6 cm Radha [employer] Phone: [facility] 09-29-2023 08:47-0400 Body mass index (BMI) [Ratio] 30.34 kg/m2 [employer] Phone: [facility] 09-29-2023 08:47-0400 Body weight 85.28 kg Radha [employer] Phone: [facility] 08-25-2023 14:52-0400 Body height 167.64 cm NOEMÍ Perea NP Work Phone: [facility] 03-14-2023 15:03-0400 Body height 167.64 cm [facility] 03-14-2023 15:03-0400 Body temperature 96.5 [degF] [facility] 03-14-2023 15:03-0400 Diastolic blood pressure 67 mm[Hg] [facility] 03-14-2023 15:03-0400 Heart rate 83 /min [facility] 03-14-2023 15:03-0400 Respiratory rate 14 /min [facility] 03-14-2023 15:03-0400 SaO2% (BldA) [Mass fraction] 98 % [facility] 03-14-2023 15:03-0400 Systolic blood pressure 104 mm[Hg] [facility] 02-04-2023 09:04-0400 Diastolic Blood Pressure Non-Invasive 64 1 MELISA ULLOA MD [facility] 02-04-2023 09:04-0400 Heart rate 66 /min MELISA ULLOA MD [facility] 02-04-2023 09:04-0400 Respiratory rate 16 /min MELISA ULLOA MD [facility] 02-04-2023 09:04-0400 Systolic Blood Pressure Non-Invasive 101 1 MELISA ULLOA MD [facility] 02-04-2023 08:45-0400 Diastolic Blood Pressure Non-Invasive 75 1 MELISA ULLOA MD [facility] 02-04-2023 08:45-0400 Heart rate 65 /min MELISA ULLOA MD [facility] 02-04-2023 08:45-0400 Respiratory rate 14 /min MELISA ULLOA MD [facility] 02-04-2023 08:45-0400 Systolic Blood Pressure Non-Invasive 112 1 MELISA ULLOA MD [facility] 02-04-2023 08:30-0400 Diastolic Blood Pressure Non-Invasive 71 1 MELISA ULLOA MD [facility] 02-04-2023 08:30-0400 Heart rate 70 /min MELISA ULLOA MD [facility] 02-04-2023 08:30-0400 Respiratory rate 15 /min MELISA ULLOA MD [facility] 02-04-2023 08:30-0400 Systolic Blood Pressure Non-Invasive 114 1 MELISA ULLOA MD [facility] 02-04-2023 07:57-0400 Body temperature 96.44 [degF] MELISA ULLOA MD [facility] 02-04-2023 07:50-0400 Respiratory Rate - Anes 20 br/min MELIAS ULLOA MD [facility] 02-04-2023 07:45-0400 Respiratory Rate - Anes 20 br/min MELISA ULLOA MD [facility] 02-04-2023 07:40-0400 Respiratory Rate - Anes 18 br/min MELISA ULLOA MD [facility] 02-04-2023 07:30-0400 temperature 96.8 [degF] MELISA ULLOA MD [facility] 02-04-2023 07:25-0400 temperature 96.8 [degF] MELISA ULLOA MD [facility] 02-04-2023 07:20-0400 temperature 96.8 [degF] MELISA ULLOA MD [facility] 02-04-2023 06:23-0400 Body weight 26.7 kg/m2 MELISA ULLOA MD [facility] 02-04-2023 06:06-0400 Body height 167.6 cm MELISA ULLOA MD [facility] 02-04-2023 06:06-0400 Body temperature 95.54 [degF] MELISA ULLOA MD [facility] 02-04-2023 06:06-0400 Body weight 75 kg MELISA ULLOA MD [facility] 02-04-2023 06:06-0400 Diastolic blood pressure 71 mm[Hg] MELISA ULLOA MD [facility] 02-04-2023 06:06-0400 Heart rate 81 /min MELISA ULLOA MD [facility] 02-04-2023 06:06-0400 Systolic blood pressure 106 mm[Hg] MELISA ULLOA MD [facility] 12-10-2022 08:47-0400 Body temperature 98.6 [degF] JAXSON BEITLER [employer] 12-10-2022 08:47-0400 Diastolic Blood Pressure Non-Invasive 78 1 JAXSON BEITLER [employer] 12-10-2022 08:47-0400 Heart rate 86 /min JAXSON BEITLER [employer] 12-10-2022 08:47-0400 Respiratory rate 16 /min JAXSON BEITLER [employer] 12-10-2022 08:47-0400 Systolic Blood Pressure Non-Invasive 124 1 JAXSON BEITLER [employer] 12-10-2022 00:08-0400 Body temperature 97.7 [degF] JAXSON BEITLER [employer] 12-10-2022 00:08-0400 Diastolic Blood Pressure Non-Invasive 78 1 JAXSON BEITLER [employer] 12-10-2022 00:08-0400 Heart rate 90 /min JAXSON BEITLER [employer] 12-10-2022 00:08-0400 Reason For Taking VItal Signs JAXSON BEITLER [employer] 12-10-2022 00:08-0400 Respiratory rate 18 /min JAXSON BEITLER [employer] 12-10-2022 00:08-0400 Systolic Blood Pressure Non-Invasive 125 1 JAXSON BEITLER [employer] 12-09-2022 15:45-0400 Body temperature 97.7 [degF] JAXSON BEITLER [employer] 12-09-2022 15:45-0400 Diastolic Blood Pressure Non-Invasive 75 1 JAXSON BEITLER [employer] 12-09-2022 15:45-0400 Heart rate 81 /min JAXSON BEITLER [employer] 12-09-2022 15:45-0400 Reason For Taking VItal Signs JAXSON BEITLER [employer] 12-09-2022 15:45-0400 Respiratory rate 16 /min JAXSON COPEITLER [employer]HYDROG[employer] W[employer] 12-09-2022 15:45-0400 Systolic Blood Pressure Non-Invasive 124 1 JAXSON BEITLER [employer] 12-08-2022 22:42-0400 Body height 167.6 cm JAXSON BEITLER [employer] 12-08-2022 22:42-0400 Body weight 82.5 kg JAXSON BEITLER [employer] 12-08-2022 22:42-0400 Body weight 29.37 kg/m2 JAXSON BEITLER [employer] [facility] 12-08-2022 22:30-0400 Body temperature 98.06 [degF] JAXSON BEITLER [employer] 12-08-2022 22:28-0400 Body height 167.6 cm JAXSON BEITLER [employer] 12-08-2022 22:28-0400 Body weight 82.5 kg JAXSON BEITLER [employer] 12-08-2022 22:28-0400 Body weight 29.37 kg/m2 JAXSON BEITLER [employer] 12-08-2022 03:43-0400 Body height 167.5 cm LILLI LEE MD [facility] 12-08-2022 03:43-0400 Body temperature 97.7 [degF] LILLI LEE MD [facility] 12-08-2022 03:43-0400 Body weight 82.7 kg LILLI LEE MD [facility] 12-08-2022 03:43-0400 Body weight 29.48 kg/m2 LILLI LEE MD [facility] 12-08-2022 03:43-0400 Diastolic Blood Pressure Non-Invasive 69 1 LILLI LEE MD [facility] 12-08-2022 03:43-0400 Heart rate 89 /min LILLI LEE MD [facility] 12-08-2022 03:43-0400 Reason For Taking VItal Signs LILLI LEE MD [facility] 12-08-2022 03:43-0400 Respiratory rate 18 /min LILLI LEE MD [facility] 12-08-2022 03:43-0400 Systolic Blood Pressure Non-Invasive 116 1 LILLI LEE MD [facility] 12-07-2022 03:17-0400 Body temperature 96.98 [degF] MELISA ULLOA MD [facility] 12-07-2022 03:17-0400 Diastolic Blood Pressure Non-Invasive 68 1 MELISA ULLOA MD [facility] 12-07-2022 03:17-0400 Respiratory rate 18 /min MELISA ULLOA MD [facility] 12-07-2022 03:17-0400 Systolic Blood Pressure Non-Invasive 116 1 MELISA ULLOA MD [facility] 12-07-2022 02:55-0400 Diastolic Blood Pressure Non-Invasive 76 1 MELISA ULLOA MD [facility] 12-07-2022 02:55-0400 Heart rate 82 /min MELISA ULLOA MD [facility] 12-07-2022 02:55-0400 Systolic Blood Pressure Non-Invasive 116 1 MELISA ULLOA MD [facility] 12-07-2022 02:37-0400 Body height 167.6 cm MELISA ULLOA MD [facility] 12-07-2022 02:37-0400 Body temperature 96.98 [degF] MELISA ULLOA MD [facility] 12-07-2022 02:37-0400 Body weight 83 kg MELISA ULLOA MD [facility] 12-07-2022 02:37-0400 Body weight 29.55 kg/m2 MELISA ULLOA MD [facility] 12-07-2022 02:37-0400 Diastolic Blood Pressure Non-Invasive 85 1 MELISA ULLOA MD [facility] 12-07-2022 02:37-0400 Heart rate 84 /min MELISA ULLOA MD [facility] 12-07-2022 02:37-0400 Reason For Taking VItal Signs MELISA ULLOA MD [facility] 12-07-2022 02:37-0400 Respiratory rate 18 /min MELISA ULLOA MD [facility] 12-07-2022 02:37-0400 Systolic Blood Pressure Non-Invasive 142 1 MELISA ULLOA MD [facility] 07-11-2022 18:57-0500 Body temperature 98.96 [degF] KEVIN HARDIN MD [facility] 07-11-2022 18:57-0500 Diastolic Blood Pressure Non-Invasive 66 1 KEVIN HARDIN MD [facility] 07-11-2022 18:57-0500 Heart rate 99 /min KEVIN HARDIN MD [facility] 07-11-2022 18:57-0500 Systolic Blood Pressure Non-Invasive 113 1 KEVIN HARDIN MD [facility] 07-21-2019 19:17-0500 BMI (Body Mass Index) 21.63 [...] Provider Facility Start: 02-04-2025 ambulatory Sophia Ellison [facility] lity:[facility] Start: 01-28-2025 End: 01-28-2025 Patient encounter procedure Gonzalez Dunne CNM -[facility] Work Phone: Start: 01-28-2025 End: 01-28-2025 ambulatory Jenniffer Perea AUTOMOTIVE FLEET SUPERVISOR-C Work Phone: [facility] Start: 01-21-2025 End: 01-21-[address] Sophia Ellison MD -[facility] Work Phone: Start: 01-21-2025 End: 01-21-2025 ambulatory Jenniffer Perea AUTOMOTIVE FLEET SUPERVISOR-C Work Phone: [facility] Start: 01-21-2025 End: 01-21-2025 ambulatory Sophia Ellison Facility:[facility] Start: 01-15-2025 End: 01-15-[address] Lashay Fields DO -[facility] Work Phone: Start: 01-15-2025 End: 01-15-2025 ambulatory Jenniffer Perea AUTOMOTIVE FLEET SUPERVISOR-C Work Phone: [facility] Start: 01-07-2025 End: 01-07-2025 Patient encounter procedure Gonzalez Dunne CNM -[facility] Work Phone: Start: 01-07-2025 End: 01-07-2025 ambulatory Jenniffer Perea AUTOMOTIVE FLEET SUPERVISOR-C Work Phone: [facility] Start: 12-31-2024 End: 12-31-2024 ambulatory Jenniffer Perea AUTOMOTIVE FLEET SUPERVISOR-C Work Phone: -Laboratory Specimen Start: 12-31-2024 End: 12-31-2024 Patient encounter procedure Gonzalez Dunne CNM -[facility] Spec[facility] Work Phone: Start: 12-31-2024 End: 12-31-2024 Patient encounter procedure Gonzalez Dunne CNM -[facility] Work Phone: Start: 12-31-2024 End: 12-31-2024 ambulatory Jenniffer Perea AUTOMOTIVE FLEET SUPERVISOR-C Work Phone: -[facility] Start: 12-31-2024 End: 12-31-2024 ambulatory Gonzalez Dunne Facility:[facility] Start: 12-25-2024 ambulatory Lashay Mcdaniels cility:[facility] Start: 12-25-2024 Non-patient / Non-visit Dr. Lashay Fields DO -[facility] Start: 12-25-2024 End: 12-25-[address] [facility] Work Phone: Start: 12-25-2024 End: 12-25-2024 ambulatory Jenniffer Perea AUTOMOTIVE FLEET SUPERVISOR-C Work Phone: [facility] Start: 12-17-2024 End: 12-17-2024 Patient encounter procedure Malathi Magdaleno AUTOMOTIVE FLEET SUPERVISOR-C -[facility] Work Phone: Start: 12-17-2024 End: 12-17-2024 ambulatory Jenniffer Perea AUTOMOTIVE FLEET SUPERVISOR-C Work Phone: -[facility] Start: 12-13-2024 Non-patient / Non-visit Dr. Sophia Ellison MD -[facility] Start: 12-13-2024 End: 12-13-2024 ambulatory Jenniffer Perea AUTOMOTIVE FLEET SUPERVISOR-C Work Phone: -[facility] Start: 12-13-2024 End: 12-13-[address] Sophia Ellison [facility] Work Phone: Start: 12-03-2024 End: 12-03-[address] Lashay Fields DO -[facility] Work Phone: Start: 12-03-2024 End: 12-03-2024 ambulatory Jenniffer Perea AUTOMOTIVE FLEET SUPERVISOR-C Work Phone: [facility] Work Phone: Start: 11-19-2024 End: 11-19-2024 Patient encounter procedure Malathi Magdaleno AUTOMOTIVE FLEET SUPERVISOR-C -[facility] Work Phone: Start: 11-19-2024 End: 11-19-2024 ambulatory Jenniffer Perea AUTOMOTIVE FLEET SUPERVISOR-C Work Phone: [facility] Work Phone: Start: 11-06-2024 End: 11-06-2024 Patient encounter procedure Gonzalez Dunne CNM -[facility] Work Phone: Start: 11-06-2024 End: 11-06-2024 ambulatory Jenniffer Perea AUTOMOTIVE FLEET SUPERVISOR-C Work Phone: [facility] Work Phone: Start: 10-29-2024 ambulatory Sophia Harris lity:[facility] Start: 10-29-2024 Non-patient / Non-visit Dr. Sophia Ellison MD -[facility] Start: 10-28-2024 End: 10-29-2024 ambulatory Jenniffer Perea AUTOMOTIVE FLEET SUPERVISOR-C Work Phone: [facility] Work Phone: Start: 10-28-2024 End: 10-29-[address] [facility] Ell[facility] Work Phone: Start: 10-22-2024 End: 10-22-2024 ambulatory Jenniffer Perea AUTOMOTIVE FLEET SUPERVISOR-C Work Phone: [facility] Work Phone: Start: 10-22-2024 End: 10-22-2024 Patient encounter procedure Malathi Magdaleno AUTOMOTIVE FLEET SUPERVISOR-C -[facility] Work Phone: Start: 10-22-2024 End: 10-22-2024 ambulatory Jneniffer Perea AUTOMOTIVE FLEET SUPERVISOR Facility:[facility] Start: 09-24-2024 End: 09-24-[address] Sophia Ellison MD -[facility] Work Phone: Start: 09-24-2024 End: 09-24-2024 ambulatory Jenniffer Perea AUTOMOTIVE FLEET SUPERVISOR Facility:[facility] Start: 09-07-2024 End: 09-07-2024 ambulatory DEVAN D [facility] Start: 08-27-2024 End: 08-27-[address] Lashay Fields DO -[facility] Work Phone: Start: 08-27-2024 End: 08-27-2024 ambulatory Jenniffer Perea AUTOMOTIVE FLEET SUPERVISOR Facility:[facility] Start: 07-30-2024 End: 07-30-2024 Patient encounter procedure Gonzalez Dunne CNM -[facility] Work Phone: Start: 07-30-2024 End: 07-30-2024 ambulatory Jenniffer Perea AUTOMOTIVE FLEET SUPERVISOR Facility:[facility] Start: 07-21-2024 End: 07-21-2024 Emergency department patient visit Dr. Aashish Thomas MD -Emergency Department Work Phone: Start: 07-02-2024 End: 07-02-[address] Lashay Fields DO -[facility] Start: 07-02-2024 End: 07-02-[address] Lashay Fields DO -[facility] Work Phone: Start: 07-02-2024 End: 07-02-2024 ambulatory Lashay Fields Facility:[facility] Start: 07-02-2024 End: 07-02-2024 ambulatory Lashay Fields Facility:[facility] Start: 06-26-2024 Non-patient / Non-visit Rachel Peña RN -[facility] Work Phone: Start: 06-26-2024 ambulatory Rachel Peña Facility :[facility] Start: 05-21-2024 End: 05-21-2024 ambulatory Malathi Magdaleno NP Facility:[facility] Start: 12-08-2023 End: 12-08-2023 ambulatory JENNIFFER PEREA OXYHYDROGEN WELDER-CUSTOMS COMPLIANCE DIRECTOR Facility:B Start: 10-04-2023 End: 10-04-2023 ambulatory JENNIFFER PEREA OXYHYDROGEN WELDER-CUSTOMS COMPLIANCE DIRECTOR Facility:B Start: 09-29-2023 End: 09-29-2023 ambulatory [facility] Start: 09-29-2023 End: 09-29-2023 Subsequent hospital visit by physician Radha Scott DO Work Phone: [facility] Start: 09-27-2023 End: 09-27-2023 ambulatory AUTOMOTIVE FLEET SUPERVISOR-C Jenniffer Perea AUTOMOTIVE FLEET SUPERVISOR Work Phone: [facility] Work Phone: Start: 09-27-2023 End: 09-27-2023 Patient encounter procedure AUTOMOTIVE FLEET SUPERVISOR-C Jenniffer Perea AUTOMOTIVE FLEET SUPERVISOR Work Phone: [facility]-Laboratory Work Phone: Start: 09-23-2023 End: 09-23-2023 ambulatory [facility] Start: 08-25-2023 End: 08-25-2023 Patient encounter procedure AUTOMOTIVE FLEET SUPERVISOR-C Jenniffer Perea AUTOMOTIVE FLEET SUPERVISOR Work Phone: [facility] Work Phone: Start: 08-08-2023 End: 08-08-2023 Patient encounter procedure AUTOMOTIVE FLEET SUPERVISOR-C Jenniffer Perea AUTOMOTIVE FLEET SUPERVISOR Work Phone: [facility] Work Phone: Start: 03-14-2023 End: 03-14-2023 Emergency department patient visit [facility]-Emergency Department Work Phone: Start: 02-04-2023 End: 02-04-2023 ambulatory JENNIFFER PEREA OXYHYDROGEN WELDER-CUSTOMS COMPLIANCE DIRECTOR Facility:B Start: 02-04-2023 End: 02-04-2023 SAME DAY STAY MELISA ULLOA MD [facility] Start: 02-02-2023 End: 02-02-2023 ambulatory JENNIFFER PEREA OXYHYDROGEN WELDER-CUSTOMS COMPLIANCE DIRECTOR Facility:B Start: 02-02-2023 End: 02-02-2023 Patient encounter procedure JAXSON SIMMONS OXYHYDROGEN WELDER-CNM [facility] Start: 02-02-2023 End: 02-02-2023 ambulatory JENNIFFER PEREA OXYHYDROGEN WELDER-CUSTOMS COMPLIANCE DIRECTOR Facility:[facility] Start: 02-02-2023 End: 02-02-2023 Patient encounter procedure JENNIFFER PEREA OXYHYDROGEN WELDER-CUSTOMS COMPLIANCE DIRECTOR [facility] Start: 12-08-2022 End: 12-10-2022 Evaluation and management of inpatient JAXSON SIMMONS OXYHYDROGEN WELDER-CNM [facility] Start: 12-08-2022 End: 12-08-2022 SAME DAY STAY LILLI LEE MD [facility] Start: 12-07-2022 End: 12-07-2022 SAME DAY STAY MELISA ULLOA MD [facility] Start: 11-10-2022 End: 11-10-2022 Patient encounter procedure LILLI LEE MD [facility] Start: 11-09-2022 End: 11-13-2022 Outreach Lab LILLI LEE MD [facility] Start: 09-14-2022 End: 09-14-2022 Patient encounter procedure MELISA ULLOA MD [facility] Start: 07-14-2022 End: 07-14-2022 Patient encounter procedure SAURABH PARSONS OXYHYDROGEN WELDER-CUSTOMS COMPLIANCE DIRECTOR [facility] Start: 07-11-2022 End: 07-11-2022 Emergency department patient visit KEVIN HARDIN MD [facility] Start: 05-19-2022 End: 05-23-2022 Outreach Lab SAURABH PARSONS OXYHYDROGEN WELDER-CUSTOMS COMPLIANCE DIRECTOR [facility] Start: 05-19-2022 End: 05-19-2022 Patient encounter procedure SAURABH PARSONS OXYHYDROGEN WELDER-CUSTOMS COMPLIANCE DIRECTOR [facility] Start: 12-16-2021 End: 12-16-2021 Patient encounter procedure LILLI LEE MD [facility] Start: 12-02-2021 End: 12-06-2021 Outreach Lab LILLI LEE MD [facility] Start: 06-11-2021 End: 06-11-2021 Patient encounter procedure JENNIFFER PEREA OXYHYDROGEN WELDER-CUSTOMS COMPLIANCE DIRECTOR [facility] Start: 07-21-2019 End: 07-21-2019 Emergency department patient visit Quangjeronimo Coley Work Phone: [facility] ED Comment on above: Strain of lumbar reg ion, initial encounter (Primary Dx) Procedures Date Procedure Procedure Detail Performing Clinician Start: 01-21-2025 Measurement of pH in vaginal fluid specimen using nitrazine yellow for detection of rupture of amniotic membrane Jenniffer Perea AUTOMOTIVE FLEET SUPERVISOR-C Work Phone: Comment on above: Amniotic fluid not p resent indicates No Rupture of FetalMembranes at time of specimen collection. Start: 12-31-2024 Beta-hemolytic Strep tococcus culture Jenniffer Perea AUTOMOTIVE FLEET SUPERVISOR-C Work Phone: Start: 12-25-2024 Measurement of pH in vaginal fluid specimen using nitrazine yellow for detection of rupture of amniotic membrane Jenniffer Perea AUTOMOTIVE FLEET SUPERVISOR-C Work Phone: Comment on above: Amniotic fluid not p resent indicates No Rupture of FetalMembranes at time of specimen collection. Start: 10-29-2024 Urine culture Jenniffer matthews AUTOMOTIVE FLEET SUPERVISOR-C Work Phone: Start: 10-28-2024 Urnls dip stick/tabl et reagent auto microscopy Jenniffer Perea AUTOMOTIVE FLEET SUPERVISOR-C Work Phone: Start: 10-22-2024 Serologic test for syphilis Jenniffer Perea AUTOMOTIVE FLEET SUPERVISOR-C Work Phone: Start: 07-21-2024 Estimated creatinine clearance Jenniffer Perea AUTOMOTIVE FLEET SUPERVISOR-C Work Phone: Start: 07-21-2024 Measurement of renal function Jenniffer Perea AUTOMOTIVE FLEET SUPERVISOR-C Work Phone: Comment on above: GFR Calc Start: 07-21-2024 Urnls dip stick/tabl et reagent auto microscopy Jenniffer Perea AUTOMOTIVE FLEET SUPERVISOR-C Work Phone: Start: 07-02-2024 Urine culture Jenniffer matthews AUTOMOTIVE FLEET SUPERVISOR-C Work Phone: Start: 07-02-2024 Procedure Jenniffer painting AUTOMOTIVE FLEET SUPERVISOR-C Work Phone: Start: 07-02-2024 Hepatitis B surface antigen measurement Jenniffer Perea AUTOMOTIVE FLEET SUPERVISOR-C Work Phone: Start: 07-02-2024 Hepatitis C antibody measurement Jenniffer Perea AUTOMOTIVE FLEET SUPERVISOR-C Work Phone: Comment on above: Non Reactive: < 0.8 Equivocal: >/= 0.8 to < 1.0 Reactive: >/= 1.0The CDC requires that a reactive/equivocal HCV antibody result be sent out for confirmation. HCV Quant by PCR testing. Start: 07-02-2024 Liquid based cervica l cytology screening Jenniffer Perea AUTOMOTIVE FLEET SUPERVISOR-C Work Phone: Comment on above: NEGATIVE FOR INTRAEP ITHELIAL LESION OR MALIGNANCY.THIS SPECIMEN WAS RESCREENED PART OF OUR CHIROPRACTIC ASSISTANT PROGRAM. This liquid based Th inPrep(R) pap test was screened withthe use of an image guided system. The HPV DNA reflex c riteria were not met with this specimenresult therefore, no HPV testing was performed.Performed at: [address] [id number] Director: Em Ramirez MD, Phone: [phone] Start: 07-02-2024 Rubella IgG measurement Jenniffer Perea AUTOMOTIVE FLEET SUPERVISOR-C Work Phone: Comment on above: Antibody Results Int erpretation of Immune Status Non Reactive Presumed Non-Immune Equivocal Equivocal Reactive Presumed Immune Start: 09-29-2023 Urine test visual color cmprsn meths Inge Hillantel OXYHYDROGEN WELDER - INTRANET SPECIALIST Work Phone: Start: 02-04-2023 Dilation and curettage MELISA ULLOA MD Start: 07-21-2019 Radex spine lumbosac ral 2/3 views Qu[facility] Adusumilli Work Phone: Start: 07-21-2019 Radex spine thoracic minimum 4 views Quang Adusumilli Work Phone: Nasal cautery JENNIFFER PEERA OXYHYDROGEN WELDER-CUSTOMS COMPLIANCE DIRECTOR Structure of wisdom tooth (body structure) MELISA ULLOA MD Plan of Treatment Date Care Activity Detail Author Start: 2061 RSV Immunization aged 60 or older (1 - 1-dose 60+ series) RSV Immunization aged 60 or older (1 - 1-dose 60+ series) [facility] [employer] Start: 2051 Zoster Vaccines (1 of 2) Zoster Vaccines (1 of 2) [facility] Start: 10-11-2032 DTaP/Tdap/Td Vaccines (3 - Td or Tdap) DTaP/Tdap/Td Vaccines (3 - Td or Tdap) [facility] Start: 12-31-2024 Group B Streptococcus Culture Group B Streptococcus Culture [facility] Start: 12-31-2024 Streptococcus agalactiae [Presence] in Unspecified specimen by Organism specific culture [facility] Start: 12-25-2024 Nonstress test [facility] Start: 12-25-2024 Obstetric monitoring [facility] Start: 12-25-2024 Vital signs measurements [facility] Start: 12-25-2024 [facility] Start: 12-25-2024 Patient discharge [facility] Start: 12-13-2024 Nonstress test [facility] Start: 12-13-2024 Obstetric monitoring [facility] Start: 12-13-2024 [facility] Start: 12-13-2024 Vital signs measurements [facility] Start: 10-29-2024 Patient discharge [facility] Start: 10-28-2024 End: 10-29-2024 [facility] Start: 10-28-2024 Nonstress test [facility] Start: 10-28-2024 Obstetric monitoring [facility] Start: 10-28-2024 Vital signs measurements [facility] Start: 02-12-2024 Influenza vaccination Influenza Vaccine (Season Ended) [facility] Start: 09-29-2023 End: 09-29-2023 Control nasal hemorrhage anterior complex CONTROL NASAL HEMORRHAGE ANTERIOR COMPLEX Epistaxis 09/29/2023 9:34 AM EDT [facility] Operating Room Start: 02-11-2023 COVID-19 Vaccine ( season) COVID-19 Vaccine ( season) [facility] Start: 2022 Screening for malignant neoplasm of cervix Pap Smear [facility] Start: 2020 Hepatitis B Vaccines (1 of 3 - 19+ 3-dose series) Hepatitis B Vaccines (1 of 3 - 19+ 3-dose series) [facility] Start: 2019 Hepatitis C screening Hepatitis C Screening [facility] Start: 02-11-2019 Influenza vaccination Flu vaccine (#1) [facility] Work Phone: Start: 2016 HPV Vaccines (1 - 3-dose series) HPV Vaccines (1 - 3-dose series) [facility] Start: 2014 Varicella vaccination Varicella Vaccines (1 of 2 - 13+ 2-dose series) [facility] Start: 2013 Depression Screening Depression Screening [facility] Start: 2007 Pneumococcal Vaccine: Pediatrics (0 to 5 Years) and At-Risk Patients (6 to 64 Years) (1 of 2 - PCV) Pneumococcal Vaccine: Pediatrics (0 to 5 Years) and At-Risk Patients (6 to 64 Years) (1 of 2 - PCV) [facility] Start: 2002 MMR Vaccines (1 of 1 - Standard series) MMR Vaccines (1 of 1 - Standard series) [facility] Start: 2001 HIV screening HIV Screening [facility] Beta-hemolytic Streptococcus culture [facility] Patient Education [facility] Work Phone: Patient referral [facility] Work Phone: Streptococcus agalac tiae [Presence] in Unspecified specimen by Organism specific culture [facility] Urine culture [facility] Immunizations Immunization Date Immunization Notes Care Provider [facility] 11-06-2024 tetanus toxoid, redu taniya diphtheria toxoid, and acellular pertussis vaccine, adsorbed Jenniffer Perea AUTOMOTIVE FLEET SUPERVISOR-C Work Phone: [facility] 10-11-2022 tetanus toxoid, redu taniya diphtheria toxoid, and acellular pertussis vaccine, adsorbed; Translations: [Boostrix (Tdap)] LILLI LEE MD [facility] Comment on above: Early/Late Reason: E eduardo/Late Reason: Other : nurse unable to chart at time of injection Result Comment: [facility]# [id number] 01-01-2014 meningococcal polysaccharide (groups A, C, Y and W-135) diphtheria toxoid conjugate vaccine (MCV4P) JENNIFFER PEREA OXYHYDROGEN WELDER-CUSTOMS COMPLIANCE DIRECTOR [facility] 01-01-2014 tetanus toxoid, redu taniya diphtheria toxoid, and acellular pertussis vaccine, adsorbed JENNIFFER PEREA OXYHYDROGEN WELDER-CUSTOMS COMPLIANCE DIRECTOR [facility] Payers Date Payer Category Payer Self-pay [id number] 2021 Unknown [id number] 2021 Unknown [employer] S [employer]OSS [id number] 2021-Present [address] [place] [address] Commercial [id number] 2001 Unknown [id number] 2.16840.1.746038.3.579.2.627 2001 Unknown [id number] 2.16.840.1.134349.3.579.2.627 2001 Unknown [id number] 2.16840.1.778643.3.579.2.627 2001 Unknown [id number] 2.16.840.1.617987.3.579.2.627 2001 Unknown [id number] 2.16.840.1.434798.3.579.2.627 2001 Unknown [id number] 2.16.840.1.217708.3.579.2.479 Unknown [facility] [id number] Unknown [id number] 2.16.840.1.499357.3.579.2.462 Unknown [id number] 2.16.840.1.428147.3.579.2.462 Unknown [id number] 2.16.840.1.649665.3.579.2.462 Unknown [id number] 2.16.840.1.311160.3.579.2.462 Unknown [id number] 2.16.840.1.807090.3.579.2.462 Unknown [id number] 2.16.840.1.863812.3.579.2.462 Unknown [id number] 2.16.840.1.342507.3.579.2.462 Unknown [id number] 2.16.840.1.500401.3.579.2.462 Unknown [id number] 2.16.840.1.150108.3.579.2.462 Unknown [id number] 2.16840.1.748473.3.579.2.462 Unknown [id number] 2.16.840.1.009617.3.579.2.462 Unknown [id number] 2.16.840.1.539485.3.579.2.462 Unknown [id number] 2.16.840.1.150534.3.579.2.462 Unknown [id number] 2.16.840.1.514086.3.579.2.462 Unknown [id number] 2.16.840.1.263193.3.579.2.462 Unknown [id number] 2.16.840.1.279673.3.579.2.462 Unknown [id number] 2.16.840.1.315231.3.579.2.462 Unknown [id number] 2.16.840.1.711401.3.579.2.462 Unknown [id number] 2.16.840.1.652237.3.579.2.462 Unknown [id number] 2.16.840.1.870591.3.579.2.462 Unknown [id number] 2.16.840.1.671682.3.579.2.462 Unknown [id number] 2.16.840.1.176618.3.579.2.462 Unknown [id number] 2.16.840.1.186352.3.579.2.462 Unknown [id number] 2.16.840.1.376304.3.579.2.462 Unknown [id number] 2.16.840.1.922945.3.579.2.462 Unknown [id number] 2.16.840.1.434962.3.579.2.462 Unknown [id number] 2.16.840.1.340095.3.579.2.462 Unknown [id number] 2.16.840.1.522350.3.579.2.462 Unknown [id number] 2.16.840.1.847611.3.579.2.462 Unknown [id number] 2.16.840.1.962418.3.579.2.462 Social History Date Type Detail Facility Start: 07-21-2019 End: 07-21-2024 Tobacco smoking status [facility] Never smoker [employer] Work Phone: Start: 07-21-2019 Alcohol intake Lifetime non-d maya (finding) [employer] Work Phone: Start: 07-21-2019 History SDOH Alcohol Frequency 1 [employer] Work Phone: Start: 2001 Sex Assigned At Not on file S [facility] Work Phone: Sex Assigned At [facility] Start: 2001 Sex Assigned At Female W [facility] Start: 09-23-2023 Tobacco use and exposure Smoke less tobacco non-user [facility] [employer] Start: 09-29-2023 Alcohol intake Ex-drinker (finding) [facility] [employer] Start: 09-29-2023 History of Social function [facility] Start: 09-29-2023 Humiliation, Afraid, Rape, and Kick questionnaire [HARK] [facility] Within the last year , have you been afraid of your partner or ex-partner? No [facility] Start: 08-08-2023 Tobacco smoking stat us INIS Unknown if ever smoked [facility] Functional Status Date Assessment Result Facility 02-04-2023 Functional Status Activity Statu s ADL Up to bathroom [facility] 02-04-2023 Functional Status bilateral knee high rashel lied/on [facility] 02-04-2023 Functional Status Maintained [facility] 12-10-2022 Functional Status Safety level maintained [facility] 12-10-2022 Functional Status [facility] 12-10-2022 Functional Status Rooming in [facility] 12-09-2022 Functional Status [facility] 12-09-2022 Functional Status [facility] 12-09-2022 Functional Status [facility] [facility] 12-09-2022 Functional Status [facility] 12-08-2022 Functional Status Home independently [facility] 07-11-2022 Functional Status Independent [facility] 07-11-2022 Functional Status Standard Safet y ID band on, Call device within reach, Bed in low position, Wheels locked, Upper/Half-Length side-rails up, Phone within reach, personal items within reach, Safety level maintained [facility] Mental Status Date Assessment Result Facility 07-21-2024 Cognitive function Voice/Name [facility] Work Phone: 02-04-2023 Mental Status Orientation Oriented x 4 [facility] 02-04-2023 Mental Status [facility] 12-10-2022 Mental Status Oriented x 4 [facility] 12-09-2022 Mental Status [facility] 07-11-2022 Mental Status Orientation Oriented x 4 [facility] 07-11-2022 Mental Status [facility] Clinical Notes 07-11-2022 to 01-28-2025 Note Date & Type Note Facility 01-28-2025 Progress note [facility] 01-21-2025 Progress note [facility] 01-21-2025 Progress note Note Date/Time January 21, 2025 2:17pm [facility] [address], [address] [place] [address] OFFICE VISIT Date of Service: 01/21/25 MR#: [id number] Acct: [id number] Name: CYDNEY BROWN Rep #: [id number] : 2000 Provider: Dr. 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 Desires nipt. was delivered in [facility] last . had retained placenta and [...] Cosigner Signature: Date (if applicable) CC: ~ [facility] Work Phone: 1(469) 878-308608-05-2025 Progress [facility] [address] [place] [address], [address] [place] [address] OFFICE VISIT Date of Service: 01/15/25 MR#: [id number] Acct: [id number] Name: CYDNEY BROWN Rep #: [id number] : 2000 Provider: Dr. Karen Fields DO Age/Sex: 24/F [place] [facility] [place]: Signed Intake Vital Signs 12/03/24 09:11 01/07/25 11:31 01/15/25 14:26 Height 5 ft 6 in 5 ft 6 in 5 ft 6 in Weight: 213 lb 8 oz BMI 34.4 BP 121/76 H Intake Visit Reasons: 38 wk ob Pattern Weaver Required: No Is patient in pain?: No [...] children number of children: 1 current occupation: [employer] current occupational exposures/hazards: No pets and [...] 5-6 times per week duration: 30-45 minutes/day feliciano/shinto: Yarsani seatbelt use: always do you feel safe at home: Yes additional social history: : [employer] @ [place] History 2 Elective abortions Hx Para 1 [...] LMP 01/27/25. Desires nipt. was delivered in [facility] last . had retained placenta andD&C several [...] Cosigner Signature: Date (if applicable) CC: ~ [facility] [id number] Progress note Author Lashay Tellez [facility] Note Date/Time January 15, 2025 3:1 0pm [facility] [address] [place] [address], [address] [place] [address] OFFICE VISIT Date of Service: 01/15/25 MR#: [id number] Acct: [id number] Name: CYDNEY BROWN Rep #: [id number] : 2000 Provider: Dr. Karen Fields DO Age/Sex: 24/F [place] [facility] [place] Status: Signed Intake Vital Signs 12/03/24 09:11 01/07/25 11:31 01/15/25 14:26 Height 5 ft 6 in 5 ft 6 in 5 ft 6 in Weight: 213 lb 8 oz BMI 34.4 BP 121/76 H Intake Visit Reasons: 38 wk ob Pattern Weaver Required: No Is patient in pain?: No [...] children number of children: 1 current occupation: [employer] current occupational exposures/hazards: No pets and [...] 5-6 times per week duration: 30-45 minutes/day feliciano/shinto: Yarsani seatbelt use: always do you feel safe at home: Yes additional social history: : [employer] @ [place] History 2 Elective abortions Hx Para 1 Spontaneous abortions Hx # Term Pregnancies Ectopic pregnancies Hx # Pregnancies Multiple births # of living children 1 Past Pregnancies Del. Date Name GA/Weeks Outcome Route Bth Weight Infant Gen Labor Lgth Anesthesia Del Locatn Provider FOB 12/09/22 Ines 41 live - full term 7lbs 6oz Female 12 hours epidural Andie Sierra Melisaeusebio Ulloa Fabrizio Delivery Date: 12/09/22 Last Updated [...] LMP 01/27/25. Desires nipt. was delivered in [facility] last . had retained placenta and [...] , JANNET 01/27/25,girl Brionna PC: Ines, : Farbizio (4) : Status: Acute Qualifiers: Weeks of [...] Cosigner Signature: Date (if applicable) CC: ~ [facility] Work Phone: 1(868) 547-562307-28-2025 Progress [facility] [address] [place] [address], [address] [place] [id number] OFFICE VISIT Date of Service: 01/07/25 MR#: [id number] Acct: [id number] Name: CYDNEY BROWN Rep #: [id number] : 2000 Provider: HARJIT Dunne Age/Sex: 24/F [place] [facility] Status: Signed Intake Vital Signs 12/03/24 09:11 12/31/24 09:41 01/07/25 11:31 Height 5 ft 6 in 5 ft 6 in 5 ft 6 in Weight: 213 lb 2 oz 215 lb 2 oz BMI 34.4 34.7 BP 99/68 119/78 Intake Visit Reasons: 37 wk ob Chief Complaint: 37wk OB Pattern Weaver Required: No Is patient in pain?: No [...] children number of children: 1 current occupation: [employer] current occupational exposures/hazards: No pets and [...] 5-6 times per week duration: 30-45 minutes/day feliciano/shinto: Yarsani seatbelt use: always do you feel safe at home: Yes additional social history: : [employer] @ [place] History 2 Elective abortions [...] LMP 01/27/25. Desires nipt. was delivered in [facility] last . had retained placenta andD&C several [...] 01/07/25 1156 s CNM> Date _ Gonzalez Dunne CNM Cosigner Signature: Date (if applicable) CC: ~ [facility]07-21-2025 Progress [facility] [address] [place] [address], [address] [place] [address] OFFICE VISIT Date of Service: 12/31/24 MR#: [id number] Acct: [id number] Name: CYDNEY BROWN Rep #: [id number] : 2000 Provider: HARJIT Dunne Age/Sex: 24/F [place] [facility] Status: Signed Intake Vital Signs 10/22/24 12:58 12/25/24 13:53 12/31/24 09:41 Height 5 ft 6 in 5 ft 6 in 5 ft 6 in Weight: 213 lb 2 oz BMI 34.4 BP 99/68 Intake Visit Reasons: 36 wk ob Chief Complaint: 36wk OB Pattern Weaver Required: No Is patient in pain?: No [...] children number of children: 1 current occupation: [employer] current occupational exposures/hazards: No pets and [...] 5-6 times per week duration: 30-45 minutes/day feliciano/shinto: Yarsani seatbelt use: always do you feel safe at home: Yes additional social history: : [employer] [place] History 2 Elective abortions [...] LMP 01/27/25. Desires nipt. was delivered in [facility] last . had retained placenta andD&C several [...] Cosigner Signature: Date (if applicable) CC: ~ [facility]07-03-2025 Progress note [facility] Medical Records Department [address] [place] [address] OB Triage Progress Note 12/13/24 1500 MR#: [id number] Acct: [id number] Name: CYDNEY BROWN Rep #:[id number] : 2000 24 From: Sophia marte MD PCP: NOEMÍ Alvarez Status:REG C LI Y DOS: Location: [place] [address] Progress Notes Date of Service: 12/13/24 Progress Note: Patient presents for triage evaluation secondary to dec movement FHT: 140 Moderate variability reactive no decelerations category I tracing Moxee: no regular Contractions Assessment and plan: 33 weeks decreased movement Reactive NST, reassuring maternal and status patient discharged to home to follow-up as scheduled. See problem list details for additional plan information. Charges/Coding Procedures Urinary/Genital 52xxx-59xxx: 20990-15 non-stress test Interp 12/13/24 1501 ngoc MANRIQUEZ> Date _ Sophia Ellison MD [facility] Signature (if applicable): Date CC: NOEMÍ Perea; Dr. Sophia Ellison MD ~ Signed [facility]06-23-2025 Progress [facility] [address], [address] [place] [address] OFFICE VISIT Date of Service: 12/03/24 MR#: [id number] Acct: [id number] Name: CYDNEY BROWN Rep #: [id number] : 2000 Provider: Dr. Karen Fields DO Age/Sex: 24/F [place] [facility] Status: Signed Intake Vital Signs 09/24/24 09:00 11/19/24 08:30 12/03/24 09:10 12/03/24 09:11 Height 5 ft 6 in 5 ft 6 in 5 ft 6 in 5 ft 6 in Weight: 215 lb BMI 34.7 BP 127/86 H Intake Visit Reasons: 32 WK OB Pattern Weaver Required: No Is patient in pain?: No [...] children number of children: 1 current occupation: [employer] current occupational exposures/hazards: No pets and [...] 5-6 times per week duration: 30-45 minutes/day feliciano/shinto: Yarsani seatbelt use: always do you feel safe at home: Yes additional social history: : [employer] @ [place] History 2 Elective abortions Hx Para 1 [...] LMP 01/27/25. Desires nipt. was delivered in [facility] last . had retained placenta andD&C several [...] Cosignromel Signature: Date (if applicable) CC: ~ [facility]05-12-2025 Evaluation note* Diagnosis Onset Date Resolution Status [...] Supervision of high-risk acute January 21 1:55pm [facility] Work Phone: 1(878) 889-885305-12-2025 Evaluation note* Diagnosis Onset Date Resolution Status [...] Supervision of high-risk acute January 28 10:25am [facility] Work Phone: [phone]) 355-321504-14-2025 Evaluation note* Diagnosis Onset Date Resolution Status [...] of high-risk acute December 31, 2024 9:37am [facility] Work Phone: 1([phone]) 262-265304-14-2025 Evaluation note* Diagnosis Onset Date Resolution Status [...] of high-risk acute January 07, 2025 11:25am [facility] Work Phone: 1([phone]) 680-876304-14-2025 Evaluation note* Diagnosis Onset Date Resolution Status [...] of high-risk acute January 15, 2025 2:00pm [facility] Work Phone: 1(991) 368-115504-14-2025 Evaluation note* Diagnosis Onset Date Resolution Status [...] Supervision of high-risk acute January 21 1:55pm [facility] Work Phone: [phone]) 175-724103-17-2025 Evaluation note* Diagnosis Onset Date Resolution Status [...] of high-risk acute December 03, 2024 9:09am [facility] Work Phone: 1([phone]) 853-480703-17-2025 Evaluation note* Diagnosis Onset Date Resolution Status [...] high-risk acute December 17, 2024 9 :29am [facility] Work Phone: [phone]) 732-687402-17-2025 Evaluation note* Diagnosis Onset Date Resolution Status [...] high-risk acute November 06, 2024 9 :51am [facility] Work Phone: 1([phone]) 263-138402-17-2025 Evaluation note* Diagnosis Onset Date Resolution Status [...] high-risk acute November 19, 2024 8 :27am [facility] Work Phone: [phone]) [phone] Evaluation note* Diagnosis Onset Date Resolution Status [...] high-risk acute October 22, 2024 1 2:37pm [facility] Work Phone: [phone]) 660-346204-18-2024 NotePatient: Cydney Brown Procedure Summary Date: 09/29/23 Room / Location: [address] Operating Room Anesthesia Start: 929 Anesthesia Stop: 1004 Procedure: LEFT CONTROL OF ANTERIOR NASAL HEMORRHAGE, COMPLEX (Left: Nose) Diagnosis: Epistaxis (Epistaxis [R04.0]) Surgeons: Radha Scott DO Responsible Provider: Aissatou Garcia APRN - INTRANET SPECIALIST Anesthesia Type: general ASA Status: 2 Anesthesia [...] Allowed opportunity for questions and acknowledgement of understanding.[facility] [id number] NotePatient: Cydney Brown Procedure Summary Date: 09/29/23 Room / Location: [address] Operating Room Anesthesia Start: 929 Anesthesia [...] discharged once all PACU criteria has been met.[place] [address]-18-2024 NoteAirway Date/Time: 09/29/2023 9:38 AM Urgency: scheduled Airway not difficult General Information and Staff Patient location during procedure: Procedural Resident/INTRANET SPECIALIST: Filiberto Rao APRN - INTRANET SPECIALIST Performed: INTRANET SPECIALIST Indications and Patient Condition Indications for airway [...] approach: 1 Number of other approaches attempted: 0[place] [address]-18-2024 NoteH&P reviewed. The patient was examined and there are no changes to the H&P.[place] [address]-18-2024 Note* Perioperative Nursing Note - Coral Baires RN - 09/29/2023 11:05 AM EDT Pt and family verbalized understanding of recovery instructions, pt verbalized a readiness to be discharged home. Pt discharged home via wheelchair accompanied by RN/volunteer. Pt has had all their belongings returned to them at discharge [id number] Note* Perioperative Nursing Note - Coral Baires RN - 09/29/2023 11:05 AM EDT Pt and family verbalized understanding of recovery instructions, pt verbalized a readiness to be discharged home. Pt discharged home via wheelchair accompanied by RN/volunteer. Pt has had all their belongings returned to them at discharge [id number] Miscellaneous Notes* Perioperative Nursing Note - Coral [...] from OR via cart, spont. Resp. With INTRANET SPECIALIST in attendance. Placed on monitor. Monitor alarms [...] closed reduction without incident. documented in this [facility]04-18-2024 Note* Perioperative Nursing Note - Mercedes Rodriguez RN - 09/29/2023 10:52 AM EDT Patient is transported to same day surgery for discharge and is brought to bedside. She is alert and has no complaints. Discharge instructions reviewed with pt and and she states she is ready to go home. Iv discontinued and report is given to coral [facility] [id number] Note* Perioperative Nursing Note - Mercedes Rodriguez RN - 09/29/2023 10:52 AM EDT Patient is transported to same day surgery for discharge and is brought to bedside. She is alert and has no complaints. Discharge instructions reviewed with pt and and she states she is ready to go home. Iv discontinued and report is given to coral [place] [id number] Note* Perioperative Nursing Note - Soumya Marquez RN - 09/29/2023 10:00 AM EDT Pt received from OR via cart, spont. Resp. With INTRANET SPECIALIST in attendance. Placed on monitor. Monitor alarms on in PACU [place] [id number] Note* Perioperative Nursing Note - Soumya Marquez RN - 09/29/2023 10:00 AM EDT Pt received from OR via cart, spont. Resp. With INTRANET SPECIALIST in attendance. Placed on monitor. Monitor alarms on in PACU [facility] [id number] Note* Op Note - Radha Scott DO [...] tolerated the closed reduction without incident. T [facility] [id number] Note* Op Note - Radha Scott DO [...] patient tolerated the closed reduction without incident. [address] [id number] Hospital Discharge instructions* Discharge Instructions* Radha Scott [...] any problems, questions, or concerns. Office Number: [phone] IF YOU HAVE AN EMERGENCY, AND ARE UNABLE TO REACH THE DOCTOR AT THE ABOVE NUMBER, CALL OR GO TO [facility] EMERGENCY ROOM [phone] For patients who have had general anesthesia: [...] Care Everywhere. * General Anesthesia Discharge Instructions (Gabonese) documented in this [facility]04-18-2024 Attending History and physical note* Radha Scott [...] Nose) - total time 30 minutes Location: [address] Operating Room Surgeons: Radha Scott DO [...] DM, COPD, HERSON, CAD, CHF, a fib, PR, TIA/CVA, DVT/PE Hx problems with anesthesia? -wakes [...] OG Colón Date: 09/23/2023 at 9:40 AM Parse Phone: 1(809) 984-600504-18-2024 History and physical note* Radha Scott DO - 09/29/2023 9:16 AM EDT H&P reviewed. The patient was examined and there are no changes to the H&P. Source Note - OG Colón - 09/23/2023 8:30 AM EDT 2Comprehensive PreSurgical History and Physical ? Name: yCdney Brown : 2000 (Age-23 y.o.) Date of Service: Pt seen/examined on 09/23/2023 Procedure Information Date/Time: 09/29/23 1000 Procedure: LEFT CONTROL OF ANTERIOR NASAL HEMORRHAGE, COMPLEX (Left: Nose) - total time 30 minutes Location: [address] Operating Room Surgeons: Radha Scott DO [...] DM, COPD, HERSON, CAD, CHF, a fib, PR, TIA/CVA, DVT/PE Hx problems with anesthesia? -wakes [...] 09/23/2023 at 9:40 AM documented in this [facility]04-12-2024 NotePatient: Cydney Brown Procedure Information Date/Time: 09/29/23 1000 Procedure: LEFT CONTROL OF ANTERIOR NASAL HEMORRHAGE, COMPLEX (Left: Nose) - total time 30 minutes Location: [address] Operating Room Surgeons: Radha Scott, Relevant [...] results found for this or any previous visit.[facility] 09-23-2023 [id number] PreSurgical History and Physical ? Name: Cydney Brown : 2000 (Age-23 y.o.) Date of Service: Pt seen/examined on 09/23/2023 Procedure Information Date/Time: 09/29/23 1000 Procedure: LEFT CONTROL OF ANTERIOR NASAL HEMORRHAGE, COMPLEX (Left: Nose) - total time 30 minutes Location: [address] Operating Room Surgeons: Radha Scott DO [...] DM, COPD, HERSON, CAD, CHF, a fib, PR, TIA/CVA, DVT/PE Hx problems with anesthesia? -wakes [...] Class I 0.5% 1 (more content not included)...[facility]04-12-2024 Note 2Comprehensive PreSurgical History and Physical ? Name: Cydney Brown : 2000 (Age-23 y.o.) Date of Service: Pt seen/examined on 09/23/2023 Procedure Information Date/Time: 09/29/23 1000 Procedure: LEFT CONTROL OF ANTERIOR NASAL HEMORRHAGE, COMPLEX (Left: Nose) - total time 30 minutes Location: [address] Operating Room Surgeons: Radha Scott DO [...] DM, COPD, HERSON, CAD, CHF, a fib, PR, TIA/CVA, DVT/PE Hx problems with anesthesia? -wakes [...] Class I 0.5% 1 (more content not included)...[facility] [id number] Hospital Discharge instructions Patient Education 02/04/2023 08:30:11 Dilation and Curettage or Vacuum Curettage, Care After, Bcgn-eh-Tffq Dilation and Curettage or Vacuum Curettage, Care [...] ?Do not have sex. General instructions Take snec-vzw-mvwkwqf and prescription medicines only as told by [...] 03/08/2009 Document Revised: 05/12/2018 Document Reviewed: 02/14/2017 [email or web address] Patient Education 2020 [employer]. 02/04/2023 08:30:00 Pain Medicine Instructions, Wxoc-yn-Qinx Pain Medicine Instructions You may need pain [...] you take your next dose. Take other gtuo-dof-mzlxufq or prescription medicines only as told by [...] 11/15/2008 Document Revised: 05/12/2018 Document Reviewed: 01/09/2018 [email or web address] Patient Education 2020 [employer] 02/04/2023 08:29:23 General Anesthesia, Adult, Care [...] what activities are safe for you. Take qacm-lnw-oxhoogz and prescription medicines only as told by [...] 2000 Document Revised: 06/02/2018 Document Reviewed: 01/13/2018 [email or web address] Patient Education Veam Video. Follow Up Care 02/03/2023 14:19:25 With:MELISA ULLOA MD Address: [address] [place] [phone]- [phone] When:Within 2 Week(s) [facility] 08-25-2023 Nurse Progress note IV discontinued per protocol. No resistance, catheter intact. Bandage applied. Digitally Signed by Anna Koroma RN on 02/04/2023 09:53 AM [facility]08-25-2023 Summary of episode note Discharge Instructions Thank you for allowing [facility] to assist you with your healthcare needs. The following is importantdischarge information regarding your hospital visit. Your Care Team JENNIFFER PEREA APRN-ALISSA What to do next Follow Up Appointments Follow Up with MELISA ULLOA MD When In 2 weeks Where: [address] [place] [phone] The Following Activity and Diet Have Been Ordered for You Discharge Activity - Ordered -- Sexual Bell Restricted, 2 weeks, 02/04/23 8:08:00 EDT Discharge [...] Postoperative pain Duration: 7 Days Pickup at [facility] #73069 New ibuprofen (ibuprofen 800 mg oral tablet) 1 tab(s) by mouth Every 8 hours Duration: 14 Days Pickup at [facility] #30095 Unchanged albuterol (Ventolin HFA MDI (90 mcg/ [...] Multivitamin + DHA) by mouth Pharmacy Information [id number]: [address], [place] [phone] Please take this list to your next [...] Do not have sex. General instructions Take udop-pnm-qihhmur and prescription medicines only as told by [...] 03/08/2009 Document Revised: 05/12/2018 Document Reviewed: 02/14/2017 [employer] Patient Education 2020 [employer] Pain Medicine [...] you take your next dose. Take other woev-mhd-tfwitvf or prescription medicines only as told by [...] 11/15/2008 Document Revised: 05/12/2018 Document Reviewed: 01/09/2018 [employer] Patient Education 2020 [email or web address] General Anesthesia, Adult, Care After This [...] what activities are safe for you. Take cxdo-qgw-oxejndl and prescription medicines only as told by [...] 2001 Document Revised: 06/02/2018 Document Reviewed: 01/13/2018 [email or web address] Patient Education 2020 [employer]. Additional Information VACCINATE! IT SAVES LIVES! Members of the community who have not yet received the COVID-19 vaccine and would like to receive it can visit one of [facility] vaccine clinics. There are many vaccine clinic locations within the [facility]. For locations and available times, please visit [email or web address].[place].gov/. It is important to note that some COVID mobile vaccine clinics are held outdoors and may be canceled in rainy or stormy conditions. To learn more about pediatric vaccinations (ages 5-11), we invite you to visit the [facility] webpage. [email or web address]/[email or web address]-[email or web address] [email or web address].htmlTo learn more about the COVID-19 vaccine, we invite you to visit the CDC website for a list of frequently asked questions.https://www.cdc.gov/coronavirus/2019-ncov/vaccines/faq.html [facility] Patient Portal Access Instructions: Stay connected with your healthcare team and access your personal medical information anytime with the [facility] Patient Portal. Please follow the directions below to create your [facility] account: 1.Access the email account you provided upon registration to the hospital/physician office.2.Look for an invitation email from [facility].3.Open the email and access the invitation link: AcceptInvitation to [facility].4.Fill in the required velasquez to create your account. To access your account, visit [email or web address]. Click the blue button labeled Access Patient Portal and then log in with the username and password that you created in the steps above. You will be able to view your test results, lab results, a summary of your visits, upcoming appointments and more. There is also a convenient messaging option where you can send secure messages to your p Moxievider. In addition, you will have the ability to download any documents or summaries to your computer and/or send the information securely to a physician. Remember that your healthcare information is confidential, so carefully consider who you will allowto register on the [facility] Patient Portal for access to your information. You can also access the [facility] Patient Portal on the [facility] Pongrwhere rashel. Simply click on Patient Portal and then log into your account. If you would like to receive a full copy of your medical records, please contact the [facility] Medical Records Department by calling [phone], Tuesday through Tuesday between 8 a.m. and [...] Call your local pharmacy or go to http://bit.ly/7I4Ij0m to find one close to you.3.Make use of household items: Use cat litter or old coffee grounds to dispose medications if other options arenot available. Mix your drugs with these household products, seal them in an airtight container andthrow it into the garbage. Call [facility]: [phone] to be sure your drugs can be [...] and Curettage or Vacuum Curettage, Care After, Oukg-bl-Ziqn Pain Medicine Instructions, Omix-mu-Lnfr General Anesthesia, Adult, Care After Medication Leaflets My discharge plan and instructions have been reviewed and explained to me and I,CYDNEY BROWN M understand my current condition and have read and understand these discharge instructions. I have received a written copy of the plan/instructions. If I have questions, I am aware that I should contactmy doctor. Patient/Utility Bagger Signature: Date/Time: Relationship to Patient: Witness Name/Signature: Date/Time: [facility]08-25-2023 Note ORIGINAL HISTORY: Retained products of conception COMPARISON: No IMPRESSION: Intraoperative ultrasound provided to the OBGYN service. Interpreted by: Cale Khanna MD Preliminary Report By: Cale Khanna MD Electronically signed By Cale Khanna MD Dictated Date: 02/04/2023 9:49:55 AM Prelim Date: 02/04/2023 9:50:31 AM Sign Date: 02/04/2023 9:50:31 AM Ordering Provider: [facility]08-25-2023 Anesthesiology Consult note Patient: CYDNEY BROWN Age: 22 years Sex: Female : 2000 Associated Diagnoses: None Author: GURMEET JUAREZ APRN-INTRANET SPECIALIST Preoperative Information Time of last food or [...] Problem list: Medical Asthma / SNOMED CT 600706120 / Confirmed Endometriosis of pelvis / SNOMED CT 51147002 / Confirmed Excess weight gain in / SNOMED CT 7338669442 / Confirmed Gastric reflux / SNOMED CT 178478203 / Confirmed Migraine / SNOMED CT 09303002 / Confirmed / SNOMED CT 032171199 / Confirmed Scoliosis / SNOMED CT 573372851 / Confirmed Right ankle swelling / SNOMED CT 4341271405 / Confirmed Viral URI / SNOMED CT 349397568 / Confirmed Resolved: COVID-19 / SNOMED CT 3479378880 Resolved: Dysmenorrhea / SNOMED CT 603213143 Resolved: Dyspareunia, female / SNOMED CT 973001365 Resolved: Right ankle sprain / SNOMED CT 82330166 Canceled: Upper respiratory disease / SNOMED CT 2037416680 Canceled: Viral URI with cough / SNOMED CT 949939795, Active Problems (9) Asthma Endometriosis of pelvis Excess weight gain in Gastric reflux Migraine Right ankle swelling Scoliosis Viral URI Histories Past Medical History: Resolved Dysmenorrhea (948186037): Resolved. COVID-19 (2533471266): Resolved. Dyspareunia, female (911614455): Resolved. Right ankle sprain (45043972): Resolved. Family History: Breast cancer Grandparent Heart attack Grandparent Depression Grandparent Liver disease Paternal Grandfather Skin cancer Grandparent Diabetes Grandparent Paternal Aunt Mitral valve disorder Mother Procedure history: Nasal cautery (913169196). [place] tooth (41416800). Social History Social & Psychosocial Habits Alcohol [...] OralL 35.3DegC (FEB 04 06:06) Heart Rate Bkujuxtrb77 bpm (FEB 04 07:20) Resp Rate 15 br/min (FEB 04 06:06) SBP91 mmHg (FEB 04 07:15) DBP50 mmHg (FEB 04 07:15) BMI26.7 (FEB 04 06:23) Measurements from flowsheet : Measurements 02/04/2023 6:23 EDT Body Mass Index 26.7 kg/m2 02/04/2023 6:06 EDT Height 167.6 cm Admission Weight 75 kg Revelo Body Weight 59.26 kg Admission Body Mass Index 26.7 m2 02/03/2023 14:04 EDT Height 167.6 cm Height in inches 66 inch(es) Admission Weight 75 kg Weight Lbs 165 lb Revelo Body Weight 59.26 kg BSA Admission 1.84 [...] EDT SN - CAt - Role Performed Patient Services Technician 02/04/2023 7:20 EDT Heart Rate Monitored 78 [...] Type CATH URETHRAL 14FR RED RUBBER 100/CA [id number] SN - TDC - Location BLADDER SN [...] Attendee SN - CAt - Role Performed INTRANET SPECIALIST SN - CAt - Role Performed Bit Bender 1 SN - CAt - Role Performed Scrub 1 SN - CAt - Role Performed Clay Pigeon Setter 1 02/04/2023 6:32 EDT SN - GCD [...] Person #1 We May Share RONIT Roberts Banner [phone] Designated Person #1 Relationship Spouse Privacy Restrictions [...] evident Teaching Method Explanation Preferred Spoken Language Gabonese Preferred Written Language Gabonese Teaching Evaluation Needs further teaching Safety Brochure [...] 6:09 EDT IV Present Present Allergies No Computer Engineering Technician On Yes Consent Form Signed Yes Patient [...] Height 167.6 cm Admission Weight 75 kg Revelo Body Weight 59.26 kg Admission Body Mass [...] no difficulties Skin Temperature Warm Skin Description [place], Dry Skin Integrity Intact Mucous Membrane Color [place] Characteristics of Speech Clear Level of Consciousness [...] Wheels locked, Non-Slip footwear 02/03/2023 14:58 EDT TMD TEACHER Phone Message Supervisor [employer] 02/03/2023 14:19 EDT Gynecology Office Note CITRIX ADMINISTRATOR preop Office Visit Note History of Present Illness Documentation History of Present Illness Documentation 02/03/2023 14:07 EDT D-EGA at Documented Date, Time 40W 2D 02/03/2023 14:04 EDT Height 167.6 cm Height in inches 66 inch(es) Admission Weight 75 kg Weight Lbs 165 lb Revelo Body Weight 59.26 kg BSA Admission 1.84 [...] Text Ambulatory Quick Intake Amb Preferred Lab [facility] Preferred [facility] 02/03/2023 7:18 EDT CSummary CSUMMARY 02/03/2023 0:41 EDT [facility] . Assessment and Plan [place] Society of Anesthesiologists (ASA) physical status classification: Class II. Anesthetic Preoperative Plan Premedication: intravenous. Anesthetic technique: General. Induction: intravenously. Maintenance airway: Laryngeal mask airway. Postoperative pain management: Per surgeon. Risks discussed: nausea, vomiting, headache, sore throat, dental injury, hypotension, allergic reaction, serious complications. Informed consent: signed by patient. Digitally Signed by GURMEET JUAREZ on 02/04/2023 07:29 AM [facility]08-25-2023 Note Date of Service 02/04/23 History and [...] MELISA ULLOA MD on 02/04/2023 06:32 AM [facility]08-23-2023 Note ORIGINAL EXAMINATION: TRANSVAGINAL and transabdominal PELVIC [...] Date: 02/02/2023 2:33:37 PM Ordering [facility] Discharge instructions Patient Education 12/10/2022 11:05:50 [...] sounds, smacking lips, cooing, sighing, or squeaking. Xkxs-lo-qdayb movements and sucking on fingers or hands. [...] able to be present during feedings. Your technology consultant can help you find a method [...] recommendations, contact your health careprovider or a technology consultant. Overall health care recommendations while Eat [...] provider before taking any medicines. These include scvh-mcp-iurqusv andprescription medicines as well as vitamins and [...] Talk with your health care provider or technology consultant if you have questions or you face problems as you breastfeed. This information is not intended to replace advice given to you by your health care provider. Make sure you discuss any questions you have with your health care provider. Document Released: 05/30/2006 Document Revised: 08/24/2018 Document Reviewed: 07/01/2017 [email or web address] Patient Education 2020 [employer]. 12/10/2022 11:05:43 7b- Depression and Blues (03/2020)(CUSTOM) [...] psychosis. Often, a screening tool called the [place] Depression Scale is used to diagnose depression [...] music. Avoid alcohol. Ask for help with cooler supervisor, cooking, grocery shopping, or running errands as needed. Do nottry to do everything. Talk to people close to you about how you are feeling. Get support from your partner, family members, and friends. Try to stay positive in how you think. Think about the things you are grateful for. Do not spend a lot of time alone. Only take tomc-hhg-ncsmtua or prescription medicine as directed by your [...] worse. Resource: [facility] Patient Information 2015 [facility]formerly [employer]) [facility]. This information is not intended to replace [...] work with your health care provider or technology consultant. If you are not : ?Avoid [...] about methods of control (contraception). Medicines Take uxkv-nvd-iqimqka and prescription medicines only as told by [...] 03/26/2008 Document Revised: 06/02/2018 Document Reviewed: 03/13/2018 [email or web address] Patient Education 2020 [employer]. [facility] 06-29-2023 Anesthesiology Consult note Patient: CYDNEY BROWN Age: 22 years Sex: Female : 2000 Associated Diagnoses: None Author: ANTOINETTE KAHNINTRANET SPECIALIST Preoperative Information Time of last food or [...] tab(s), 6 Refill(s) Documented Medications Documented Evening [place] Oil 1000 mg oral capsule: 1,000 mg, [...] Problem list: Medical Asthma / SNOMED CT 048552207 / Confirmed Endometriosis of pelvis / SNOMED CT 42126052 / Confirmed Excess weight gain in / SNOMED CT 2667154310 / Confirmed Gastric reflux / SNOMED CT 976267403 / Confirmed Migraine / SNOMED CT 93594619 / Confirmed / SNOMED CT 072520940 / Confirmed Scoliosis / SNOMED CT 978622037 / Confirmed Right ankle swelling / SNOMED CT 6922001248 / Confirmed Viral URI / SNOMED CT 605494480 / Confirmed, Active Problems (9) Asthma Endometriosis of pelvis Excess weight gain in Gastric reflux Migraine Right ankle swelling Scoliosis Viral URI Histories Past Medical History: Resolved Dysmenorrhea (410224042): Resolved. COVID-19 (7931832082): Resolved. Dyspareunia, female (172857645): Resolved. Right ankle sprain (27208325): Resolved. Family History: Breast cancer Grandparent Heart attack Grandparent Depression Grandparent Liver disease Paternal Grandfather Skin cancer Grandparent Diabetes Grandparent Paternal Aunt Mitral valve disorder Mother Procedure history: Nasal cautery (648821192). [place] tooth (57903725). Social History Social & Psychosocial Habits Alcohol [...] Resp Rate 18 br/min (DEC 09 00:09) KUA072 mmHg (DEC 09 00:09) DBPL 53mmHg (DEC 09 00:09) BMI29.37 (DEC 08 22:42) Measurements from flowsheet : Measurements 12/08/2022 22:42 EDT Height 167.6 cm Admission Weight 82.5 kg Revelo Body Weight 59.26 kg BSA Admission 1.92 Body Mass Index 29.37 kg/m2 12/08/2022 22:28 EDT Height 167.6 cm Admission Weight 82.5 kg Revelo Body Weight 59.26 kg BSA Admission 1.92 Body Mass Index 29.37 kg/m2 12/08/2022 3:43 EDT Height 167.5 cm Admission Weight 82.7 kg Revelo Body Weight 59.17 kg BSA Admission 1.92 [...] with support Epidural Placed By ANTOINETTE KAHN OXYHYDROGEN WELDER-INTRANET SPECIALIST Epidural Test Dose Time 12/09/2022 0:02 Epidural [...] Screen Gel Negative ABSC 12/08/2022 22:56 EDT [place] History and Physical History and Physical 12/08/2022 [...] Nonreactive Designated Person #1 We May Share [facility] Fabrizio Banner [phone] Designated Person #1 Relationship Spouse Privacy Restrictions Requested None Height 167.6 cm Admission Weight 82.5 kg Revelo Body Weight 59.26 kg BSA Admission 1.92 [...] Surrogate No Tubal Sterilization Planned No Discharge [place] Physician Jenniffer Perea Written Plan Yes - See paper plan on chart [facility] Participant No Safe Sleep Environment for Baby [...] No further teaching needed Preferred Written Language Gabonese Preferred Spoken Language Gabonese Chief Complaint labor check Mode of Arrival Wheelchair Information Given by Spouse Patient's Current Physicians Dr. Lee/ Dr. Ulloa Emergency Contact Number fabrizio brown [phone] Reason For Visit OB Labor check Belongings [...] Height 167.6 cm Admission Weight 82.5 kg Revelo Body Weight 59.26 kg BSA Admission 1.92 [...] No Weight Loss No Preferred Written Language Gabonese Preferred Spoken Language Gabonese Chief Complaint labor check Mode of Arrival Wheelchair Information Given by Spouse Patient's Current Physicians dr. lee Emergency Contact Number fabrizio banner [facility] [phone] Reason For Visit OB Labor check Belongings [...] Monitoring Annotations Triage Evaluation 12/08/2022 4:42 EDT [place] [facility] Inpatient Summary Women's Health Inpatient Discharge [...] Labor check Last Food Intake 12/08/2022 3:28 [place] OB Screen Note OB Screening [place] (Modified) OB Screening Form [place] OB Screening Form [place] (Modified) 12/08/2022 3:55 EDT Amnisure Negative QC AMNI Valid 12/08/2022 3:43 EDT Height 167.5 cm Admission Weight 82.7 kg Revelo Body Weight 59.17 kg BSA Admission 1.92 [...] No Weight Loss No Preferred Written Language Gabonese Preferred Spoken Language Gabonese Chief Complaint Labor check Mode of Arrival Ambulatory Information Given by Patient Patient's Current Physicians dr. lee Emergency Contact Number fabrizio brown [phone] Belongings At Bedside Cell phone, Purse Personal [...] History OB Triage . Assessment and Plan [place] Society of Anesthesiologists (ASA) physical status classification: Class II. Anesthetic Preoperative Plan Anesthetic technique: Epidural. Postoperative pain management: Per surgeon. Informed consent: signed by patient. Digitally Signed by ANTOINETTE KAHN on 12/09/2022 12:42 AM [facility]06-28-2023 Hospital Discharge instructions Patient Education 12/08/2022 04:42:53 7 - Labor and Delivery Outpatient Instructions (CUSTOM) [place] [facility] OUTPATIENT HOME-GOING INSTRUCTIONS _X_ [...] crackers, bananas, Jell-O, cooked carrots, applesauce. ___ [place] diet. Avoid caffeine, chocolate, alcohol, spiced/greasy foods. [...] the nearest Emergency Room for assistance. Form [id number] D: 05/21 Document Released: 05/30/2006 Document Revised: 05/18/2012 Document Reviewed: 05/30/2006 ExitCare Patient Information 2012 W[employer]Me, [employer]. Follow Up Care 12/08/2022 03:37:01 With:LILLI LEE Address: [address] [facility] [address] [facility] [address]- [phone] Business (1) When: Unknown [facility] 06-27-2023 Hospital Discharge instructions Patient Education 12/07/2022 03:22:01 [place] L&D Outpatient Instructions (AORN) [place] [facility] AND DELIVERY OUTPATIENT HOME-GOING INSTRUCTIONS _X_ [...] crackers, bananas, Jell-O, cooked carrots, applesauce. ___ [place] diet. Avoid caffeine, chocolate, alcohol, spiced/greasy foods. [...] Emergency Room for assistance. Form D: 05/21 [facility] 01-29-2023 Hospital Discharge instructions Patient Education 07/11/2022 [...] or pharmacist before taking a new medicine. [phone] The ddmap.com. [address] [place] [address]. All rights reserved. This information is not intended as a substitute for professional medical care. Always follow yourhealthcare professional's instructions. Follow Up Care 07/11/2022 18:49:49 With:LILLI LEE MD Address: [address] [facility] [address] [facility] [address]- [phone] When:2-4 days With:JENNIFFER PEREA [facility]DR[facility]EN [facility] Address: [address] [facility] [place] [address]- [phone] When:2-4 days [facility] 01-29-2023 Note Discharge Instructions Thank you for allowing [facility] to assist you with your healthcare needs. The following is importantdischarge information regarding your hospital visit. Diagnosis from Today's Visit Abdominal discomfort Headache GERD (gastroesophageal reflux disease) Abdominal pain - 19 weeks What to Do Next Instructions from Your Care Team Please follow-up with your TMD TEACHER. We are providing you with a prescription [...] When Within 2-4 days Where: [address] [facility] [address] [facility] [place] [address]- [phone] Follow Up with JENNIFFER PEREA APRN-ALISSA When Within 2-4 days Where: [address] [facility] [place] [address]- [phone] Allergies NKA Medications Please ask your primary [...] or pharmacist before taking a new medicine. [phone] The ddmap.com. [address] [place] [address], [place] [address]. All rights reserved. This information is not intended as a substitute for professional medical care. Always follow yourhealthcare professional's instructions. Additional Information VACCINATE! IT SAVES LIVES! Members of the community who have not yet received the COVID-19 vaccine and would like to receive it can visit one of [facility] vaccine clinics. There are many vaccine clinic locations within the [facility]. For locations and available times, please visit [email or web address]. It is important to note that some COVID mobile vaccine clinics are held outdoors and may be canceled in rainy orstormy conditions. To learn more about pediatric vaccinations (ages 5-11), we invite you to visit the [facility] webpage. [email or web address] [email or web address] learn more about the COVID-19 vaccine, we invite you to visit the [facility] website for a list of frequently asked questions. [email or web address] _[email or web address].pdf [facility] Patient Portal Access Instructions: Stay connected with your healthcare team and access your personal medical information anytime with the [facility] Patient Portal. If you would like a full copy of your medical records please contact the [facility] Medical Records Department Tuesday through Tuesday between 8a.m. and 4:30p.m. Please follow the directions below to access the portal: 1.Access the email account you provided upon registration to the hospital.2.Look for an invitation email from [facility].3.Open the email and access the invitation link: Accept Invitation to [facility]4.Fill in the required velasquez to create your account. Sign into www.[facility] with your username and password that you [...] you will allow to register on the [facility] Patient Portal for access to your information. You can also access the [employer] Patient Portal on the [employer]. Simply click on Health Records under HealthData and then click on the [place] [employer] logo. HOW TO SAFELY DISPOSE OF PRESCRIPTION [...] Call your local pharmacy or go to [email or web address] to find one close to you.3.Make use of household items: Use cat litter or old coffee grounds to dispose medications if other options arenot available. Mix your drugs with these household products, seal them in an airtight container andthrow it into the garbage. Call [facility]: [phone] to be sure your drugs can be [...] am aware that I should contactmy doctor. Patient/Utility Bagger Signature: Date/Time: Relationship to Patient: Witness Name/Signature: Date/Time: [facility] No data available for this section [facility] Evaluation + Plan note Future Appointments Appointment Date:12/17/2021 05:00:00 PM Scheduled Provider: Location:[facility] Appointment Type:US Pelvis Non-OB Complete Future Scheduled Tests Laboratory* Pathology Supervisor [employer] Request 12/02/21 Radiology* US Pelvis Non-OB Complete 12/17/21 [facility] Evaluation + Plan note Future Appointments Appointment Date:06/16/2022 02:00:00 PM Scheduled Provider:SAURABH PARSONS Location:[facility] Appointment Type:WH OV OB Routine Follow Up Diagnostic Tests Pending * N. gonorrhoeae PCR 05/19/22 * Urine Culture 05/19/22 * Varicella Zoster Antibody 05/19/22 * Chlamydia trachomatis PCR 05/19/22 * Panel (AO) 05/19/22 Future Scheduled Tests Laboratory* Panel (AO) 05/19/22 * HIV 1/2 Ab 05/19/22 * [facility] Lab Send out (Blood Specimens) 05/19/22 [facility] Evaluation + Plan note Future Appointments Appointment Date:06/16/2022 02:00:00 PM Scheduled Provider:SAURABH PARSONS Location:[facility] Appointment Type: OV OB Routine Follow Up Future Scheduled Tests Laboratory* Panel (AO) 05/19/22 * HIV 1/2 Ab 05/19/22 * [facility] Lab Send out (Blood Specimens) 05/19/22 [facility] evaluation + Plan note Future Appointments Appointment Date:07/14/2022 02:30:00 PM Scheduled Provider:LILLI LEE MD Location:[facility] Appointment Type: OV OB Routine Follow Up Appointment Date:07/14/2022 04:00:00 PM Scheduled Provider: Location:[facility] Appointment Type:US OB > 14 wks Future Scheduled Tests Laboratory* Panel (AO) 05/19/22 * HIV 1/2 Ab 05/19/22 * [facility] Lab Send out (Blood Specimens) 05/19/22 Radiology* US OB > 14 weeks 07/14/22 [facility] Evaluation + Plan note Future Appointments Appointment Date:08/16/2022 02:00:00 PM Scheduled Provider:MELISA ULLOA MD Location:[facility] Appointment Type:[facility] OB Routine Follow Up Future Scheduled Tests Laboratory* Panel (AO) 05/19/22 * HIV 1/2 Ab 05/19/22 * [facility] Lab Send out (Blood Specimens) 05/19/22 [facility] ReactXaluation + Plan note Future Appointments Appointment Date:09/27/2022 01:15:00 PM Scheduled Provider:MELISA ULLOA MD Location:[facility] Appointment Type: OV OB Routine Follow Up Diagnostic Tests Pending * Rapid Plasma Reagin Test 09/14/22 [facility] evaluation + Plan note Future Appointments Appointment Date:11/16/2022 01:45:00 PM Scheduled Provider:LILLI LEE MD Location:[facility] Appointment Type: OV OB Routine Follow Up [facility] evaluation + Plan note Future Appointments Appointment Date:12/15/2022 11:00:00 AM Scheduled Provider:LILLI LEE MD Location:[facility] Appointment Type: OV OB Routine Follow Up [facility] Evaluation noteNo assessment information available [facility] Work Phone: Evaluation note* Diagnosis Onset Date Resolution Status Migraine with aura acute Encounter for routine gynecological examination noneactive Care and examination of lactating mother noneactive Nipple pain noneactive [facility] Work Phone: Hospital Discharge instructions No data available for this section [facility] Progress note No data available for this section [facility] Progress note Author Lashay Tellez [facility] Note Date/Time December 03, 2024 9:56 am [facility] [address], [address] [place] [address] OFFICE VISIT Date of Service: 12/03/24 MR#: [id number] Acct: [id number] Name: CYDNEY BROWN Rep #: [id number] : 2000 Provider: Dr. Karen Fields DO Age/Sex: 24/F Location: [facility] Status: Signed Intake Vital Signs 09/24/24 09:00 11/19/24 08:30 12/03/24 09:10 12/03/24 09:11 Height 5 ft 6 in 5 ft 6 in 5 ft 6 in 5 ft 6 in Weight: 215 lb BMI 34.7 BP 127/86 H Intake Visit Reasons: 32 WK OB Pattern Weaver Required: No Is patient in pain?: No [...] children number of children: 1 current occupation: [employer] current occupational exposures/hazards: No pets and [...] 5-6 times per week duration: 30-45 minutes/day feliciano/shinto: Yarsani seatbelt use: always do you feel safe at home: Yes additional social history: : [employer]- [employer] @ [employer] History 2 Elective abortions [...] LMP 01/27/25. Desires nipt. was delivered in [facility] last . had retained placenta and [...] Patel Signature: Date (if applicable) CC: ~ [facility] Work Phone: Progress note Author Sophia Ellison [facility] Note Date/Time December 13, 2024 3:01p [facility] Medical Records Department [address] [place] [address] OB Triage Progress Note 12/13/24 1500 MR#: [id number] Acct: [id number] Name: CYDNEY BROWN Rep #:[id number] : 2000 24 From: Sophia marte MD PCP: NOEMÍ Alvarez Status:REG C LI Y DOS: Location: [place] [address] Progress Notes Date of Service: 12/13/24 Progress Note: Patient presents for triage evaluation secondary to dec movement FHT: 140 Moderate variability reactive no decelerations category I tracing [place]: no regular Contractions Assessment and plan: 33 weeks decreased movement Reactive NST, reassuring maternal and status patient discharged to home to follow-up as scheduled. See problem list details for additional plan information. Charges/Coding Procedures Urinary/Genital 52xxx-59xxx: 74209-18 non-stress test Interp 12/13/24 1501 <Electronically signed by Sophia grossman MD> Date _ Sophia Patel Signature (if applicable): Date CC: AUTOMOTIVE FLEET SUPERVISORWoodrow Perea; Dr. Sophia Ellison MD ~ Signed [facility] Work Phone: Progress note Author Gonzalez Dunne [facility] Note Date/Time December 31, 2024 10:1 0am [facility] [place] [facility] [address] [place] [address], [address] [place] [address] OFFICE VISIT Date of Service: 12/31/24 MR#: [id number] Acct: [id number] Name: CYDNEY BROWN Rep #: [id number] : 2000 Provider: HARJIT Dunne Age/Sex: 24/F [place] [facility] [place]: Signed Intake Vital Signs 10/22/24 12:58 12/25/24 13:53 12/31/24 09:41 Height 5 ft 6 in 5 ft 6 in 5 ft 6 in Weight: 213 lb 2 oz BMI 34.4 BP 99/68 Intake Visit Reasons: 36 wk ob Chief Complaint: 36wk OB Pattern Weaver Required: No Is patient in pain?: No [...] children number of children: 1 current occupation: [employer] current occupational exposures/hazards: No pets and animals: [...] 5-6 times per week duration: 30-45 minutes/day feliciano/shinto: Yarsani seatbelt use: always do you feel safe at home: Yes additional social history: : [employer]- [employer] @ [employer] History 2 Elective abortions Hx Para 1 Spontaneous abortions Hx # Term Pregnancies Ectopic pregnancies Hx # Pregnancies Multiple births # of living children 1 Past Pregnancies Del. Date Name GA/Weeks Outcome Route Bth Weight Gen Labor Lgth Anesthesia Del Locatn Provider FOB 12/09/22 Ines 41 live - full term 7lbs 6oz Female 12 hours epidural Andie Winstedbernabe Roberts Delivery Date: 12/09/22 Last Updated by: [...] LMP 01/27/25. Desires nipt. was delivered in [facility] last . had retained placenta and [...] comes and goes under breasts, nystatin sent. [facility]. 28 wk labs pending 11/06/24 -?-?-?-?-?-?-?-?-?-?-?-?- 28w [...] Cosigner Signature: Date (if applicable) CC: ~ [facility] Work Phone: Progress note Author Gonzalez Dunne [facility] Note Date/Time January 07, 2025 11:5 6am [facility] [address] [place] [address], [address] [place] [address] OFFICE VISIT Date of Service: 01/07/25 MR#: [id number] Acct: [id number] Name: CYDNEY BROWN Rep #: [id number] : 2000 Provider: HARJIT Dunne Age/Sex: 24/F Location[place] [facility] [place] Status: Signed Intake Vital Signs 12/03/24 09:11 12/31/24 09:41 01/07/25 11:31 Height 5 ft 6 in 5 ft 6 in 5 ft 6 in Weight: 213 lb 2 oz 215 lb 2 oz BMI 34.4 34.7 BP 99/68 119/78 Intake Visit Reasons: 37 wk ob Chief Complaint: 37wk OB Pattern Weaver Required: No Is patient in pain?: No [...] children number of children: 1 current occupation: [employer] current occupational exposures/hazards: No pets and [...] 5-6 times per week duration: 30-45 minutes/day feliciano/shinto: Yarsani seatbelt use: always do you feel safe at home: Yes additional social history: : [employer] History 2 Elective abortions [...] LMP 01/27/25. Desires nipt. was delivered in [facility] last . had retained placenta and [...] Cosigner Signature: Date (if applicable) CC: ~ [facility] Work Phone: Progress note Author Gonzalez Dunne [facility] Note Date/Time January 28, 2025 11 :07am [facility] [address], [address] [place] [address] OFFICE VISIT Date of Service: 01/28/25 MR#: [id number] Acct: [id number] Name: CYDNEY BROWN Rep #: [id number] : 2000 Provider: HARJIT Dunne Age/Sex: 24/F Location[place] [facility] [place] Status: Signed Intake Vital Signs 12/03/24 09:11 01/21/25 14:02 01/28/25 10:31 Height 5 ft 6 in 5 ft 6 in 5 ft 6 in Weight: 216 lb BMI 34.8 BP 118/65 Intake Visit Reasons: 40wk ob *JANNET 01/27 Chief Complaint: 40wk OB Pattern Weaver Required: No Is patient in pain?: No [...] children number of children: 1 current occupation: [employer] current occupational exposures/hazards: No pets and [...] 5-6 times per week duration: 30-45 minutes/day feliciano/shinto: Yarsani seatbelt use: always do you feel safe at home: Yes additional social history: : [employer] @ [place] History 2 Elective abortions Hx Para 1 [...] LMP 01/27/25. Desires nipt. was delivered in [facility] last . had retained placenta and [...] Negative 143 26 -?-?-?-?-?-?-?-?-?-?-?-?- MH-No VB. Ezra oPrter. Rash comes and goes under breasts, nystatin [...] Cosigner Signature: Date (if applicable) CC: ~ [facility] Work Phone: Reason for referral (narrative)No reason for referral information availableWSelect [facility] Work Phone: Discharge Instructions * Attachments The following attachments cannot be sent through Care Everywhere. * Back: Preventing Injuries (Gabonese) documented in this encounter Assessments Diagnosis Strain [...] Do you have a Healthcare Power of Industrial Gas Servicer Supervisor? 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 NEED ORDER Reason for Visit [...] To Contact Diagnoses Epistaxis Epistaxis [R04.0] Procedures DC CONTROL NASAL HEMORRHAGE ANTERIOR COMPLEX LEFT CONTROL OF ANTERIOR NASAL HEMORRHAGE, COMPLEX Radha Scott, DO [address] [place] [address] [facility] Main Or [address] [place] [address] Referral ID Status Reason Start Date Expiration Date Visits Re quested Visits Authorized [id number] 1 1 INFORMATION SOURCE (unrecogn ized section and content) DATE CREATED AUTHOR 09/06/2019 [facility] DATE CREATED AUTHOR AUTHOR'S ORGANIZ ATION 12/31/2019 [facility] DATE CREATED AUTHOR AUTHOR'S ORGANIZ ATION 09/30/2023 [facility] DATE CREATED AUTHOR AUTHOR'S ORGANIZ ATION 12/11/2023 [facility] ([place]) DATE CREATED AUTHOR AUTHOR'S ORGANIZ ATION 09/08/2024 [facility] DATE CREATED AUTHOR AUTHOR'S ORGANIZ ATION 01/29/2025 [facility] Care Team (unrecognized sect ion and content) Personnel Name: JENNIFFER PEREA Address: Address: [address] [place] [address]- [place] Care Team Personnel Name: JENNIFFER PEREACUSTOMS COMPLIANCE DIRECTOR Position: P4 Advanced Practice Nurse Med Service: Active Provider Member Role: Primary Care Physician Address: Address: [address] [place] [address]- Care Team Related Persons Name: NORY RAMÍREZ Address: Home [address] [place], [place] [id number] [place] Name: NORY RAMÍREZ Address: Home [id number] [place] [id number] Care Team Personnel Name: JENNIFFER PEREA APRN-CUSTOMS COMPLIANCE DIRECTOR Position: P4 Advanced Practice Nurse Member Role: Primary Care Physician Address: Address: [address] [place] [address]- [place] Care Team Related Persons Name: FABRIZIO BROWN Address: Home [address] [place] [address] Care Team Personnel Name: JENNIFFER PEREACUSTOMS COMPLIANCE DIRECTOR Position: P4 Advanced Practice Nurse Member Role: Primary Care Physician Address: Address: [address] [place] [address]- [place] Care Team Related Persons Name: FABRIZIO BROWN Address: Home [address] [place] [address] Care Team Personnel Name: JENNIFFER PEREA APRN-CUSTOMS COMPLIANCE DIRECTOR Position: P4 Advanced Practice Nurse Member Role: Primary Care Physician Address: Address: [address] [place] [address]- Care Team Related Persons Name: FABRIZIO BROWN Address: Home [address] [place], [place] [id number] Care Team Personnel Name: JENNIFFER PEREA APRN-CUSTOMS COMPLIANCE DIRECTOR Position: P4 Advanced Practice Nurse Member Role: Primary Care Physician Address: Address: [address] [facility]icians [place], [place] [address] Care Team Related Persons Name: FABRIZIO BROWN Address: Home [address] [place], [place] [id number] Patient Care team informatio n (unrecognized section and content) Team Status: Active Member Role Status Dates Jenniffer Perea AUTOMOTIVE FLEET SUPERVISOR, AUTOMOTIVE FLEET SUPERVISOR-C Primary Care Provider Active Team Status: Inactive Member Role Status Dates Jenniffer Perea NP, AUTOMOTIVE FLEET SUPERVISOR-C Primary Care Provider Active Start: July 02, 2024 End: July 02, 2024 Jenniffer Perea NP, AUTOMOTIVE FLEET SUPERVISOR-C Referring Provider Active Start: July 02, 2024 End: July 02, 2024 Dr. Lashay Fields DO Attending Provider Activ e Start: July 02, 2024 End: July 02, 2024 Team Status: Inactive Member Role Status Dates Jenniffer Perea NP, AUTOMOTIVE FLEET SUPERVISOR-C Primary Care Provider Active Start: July 02, 2024 End: July 02, 2024 Dr. Lashay Fields DO Attending Provider Activ e Start: July 02, 2024 End: July 02, 2024 Dr. Lashay Fields DO Referring Provider Activ e Start: July 02, 2024 End: July 02, 2024 Team Status: Inactive Member Role Status Dates Jenniffer Perea NP, AUTOMOTIVE FLEET SUPERVISOR-C Primary Care Provider Active Start: July 21, 2024 End: July 21, 2024 Aashish Thomas MD Attending Provider Active Star t: July 21, 2024 End: July 21, 2024 Aashish Thomas MD Emergency Provider Active Star t: July 21, 2024 End: July 21, 2024 Team Status: Inactive Member Role Status Dates Jenniffer Perea NP, AUTOMOTIVE FLEET SUPERVISOR-C Primary Care Provider Active Start: July 30, 2024 End: July 30, 2024 Jenniffer Perea NP, AUTOMOTIVE FLEET SUPERVISOR-C Referring Provider Active Start: July 30, 2024 End: July 30, 2024 Gonzalez Dunne CNM Attending Provider Active S tart: July 30, 2024 End: July 30, 2024 Team Status: Inactive Member Role Status Dates Jenniffer Perea NP, AUTOMOTIVE FLEET SUPERVISOR-C Primary Care Provider Active Start: August 27, 2024 End: August 27, 2024 Jenniffer Perea NP, AUTOMOTIVE FLEET SUPERVISOR-C Referring Provider Active Start: August 27, 2024 End: August 27, 2024 Dr. Lashay Fields DO Attending Provider Activ e Start: August 27, 2024 End: August 27, 2024 Team Status: Inactive Member Role Status Dates Jenniffer Perea AUTOMOTIVE FLEET SUPERVISOR, AUTOMOTIVE FLEET SUPERVISOR-C Primary Care Provider Active Start: September 24, 2024 End: September 24, 2024 Jenniffer Perea AUTOMOTIVE FLEET SUPERVISOR, AUTOMOTIVE FLEET SUPERVISOR-C Referring Provider Active Start: September 24, 2024 End: September 24, 2024 Dr. Sophia Ellison MD Attending Provider Active Start: September 24, 2024 End: September 24, 2024 Team Status: Inactive Member Role Status Dates Jenniffer Perea AUTOMOTIVE FLEET SUPERVISOR, AUTOMOTIVE FLEET SUPERVISOR-C Primary Care Provider Active Start: October 22, 2024 End: October 22, 2024 Dr. Sophia Ellison MD Attending Provider Active Start: October 22, 2024 End: October 22, 2024 Dr. Sophia Ellison MD Referring Provider Active Start: October 22, 2024 End: October 22, 2024 Team Status: Inactive Member Role Status Dates Jenniffer Perea AUTOMOTIVE FLEET SUPERVISOR, AUTOMOTIVE FLEET SUPERVISOR-C Primary Care Provider Active Start: October 22, 2024 End: October 22, 2024 eJnniffer Perea AUTOMOTIVE FLEET SUPERVISOR, AUTOMOTIVE FLEET SUPERVISOR-C Referring Provider Active Start: October 22, 2024 End: October 22, 2024 Malathi Magdaleno AUTOMOTIVE FLEET SUPERVISOR, AUTOMOTIVE FLEET SUPERVISOR-C Attending Provider Active Start: October 22, 2024 End: October 22, 2024 Team Status: Inactive Member Role Status Dates Jenniffer Perea AUTOMOTIVE FLEET SUPERVISOR, AUTOMOTIVE FLEET SUPERVISOR-C Primary Care Provider Active Start: October 28, 2024 End: October 29, 2024 Dr. 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 Relationship Specialty Start Date End Date Jenniffer Perea [address] [place] [id number] PCP - General Nurse Practitioner Family 09/29/23 Team Status: Inactive Member Role Status Dates Jenniffer Perea AUTOMOTIVE FLEET SUPERVISOR, AUTOMOTIVE FLEET SUPERVISOR-C Primary Care Provider, Referri ng Provider Active Malathi Magdaleno AUTOMOTIVE FLEET SUPERVISOR, AUTOMOTIVE FLEET SUPERVISOR-C Attending Provider Active Team Status: Inactive Member Role Status Dates Jenniffer Perea AUTOMOTIVE FLEET SUPERVISOR, AUTOMOTIVE FLEET SUPERVISOR-C Primary Care Provider, Referri ng Provider Active Kristi Mathur AUTOMOTIVE FLEET SUPERVISOR, AUTOMOTIVE FLEET SUPERVISOR-C Attending Provider Active Team Status: Inactive Member Role Status Dates Jenniffer Perea AUTOMOTIVE FLEET SUPERVISOR, AUTOMOTIVE FLEET SUPERVISOR-C Primary Care Provider Active Malathi Magdaleno AUTOMOTIVE FLEET SUPERVISOR, AUTOMOTIVE FLEET SUPERVISOR-C Attending Provider, Referring Provider Active Team Status: Active Member Role Status Dates Jenniffer Perea AUTOMOTIVE FLEET SUPERVISOR, AUTOMOTIVE FLEET SUPERVISOR-C Primary Care Provider Active Start: October 29, 2024 Dr. Sophia Ellison MD Attending Provider Active Start: October 29, 2024 Dr. Sophia Ellison MD Other Provider Active Start: October 29, 2024 Team Status: Inactive Member Role Status Dates Jenniffer Perea NP, AUTOMOTIVE FLEET SUPERVISOR-C Primary Care Provider Active Start: November 06, 2024 End: November 06, 2024 Jenniffer Perea NP, AUTOMOTIVE FLEET SUPERVISOR-C Referring Provider Active Start: November 06, 2024 End: November 06, 2024 Gonzalez Dunne CNM Attending Provider Active S tart: November 06, 2024 End: November 06, 2024 Team Status: Inactive Member Role Status Dates Jenniffer Perea NP, AUTOMOTIVE FLEET SUPERVISOR-C Primary Care Provider Active Start: October 28, 2024 End: October 29, 2024 Dr. Sophia Ellison MD Attending Provider Active Start: October 28, 2024 End: October 29, 2024 Dr. Sophia Ellison MD Referring Provider Active Start: October 28, 2024 End: October 29, 2024 Team Status: Inactive Member Role Status Dates Jenniffer Perea NP, AUTOMOTIVE FLEET SUPERVISOR-C Primary Care Provider Active Start: November 19, 2024 End: November 19, 2024 Jenniffer Perea NP, AUTOMOTIVE FLEET SUPERVISOR-C Referring Provider Active Start: November 19, 2024 End: November 19, 2024 Malathi Magdaleno AUTOMOTIVE FLEET SUPERVISOR, AUTOMOTIVE FLEET SUPERVISOR-C Attending Provider Active Start: November 19, 2024 End: November 19, 2024 Team Status: Inactive Member Role Status Dates Jenniffer Perea NP, AUTOMOTIVE FLEET SUPERVISOR-C Primary Care Provider Active Start: December 03, 2024 End: December 03, 2024 Jenniffer Perea AUTOMOTIVE FLEET SUPERVISOR, AUTOMOTIVE FLEET SUPERVISOR-C Referring Provider Active Start: December 03, 2024 End: December 03, 2024 Dr. Lashay Fields DO Attending Provider Activ e Start: December 03, 2024 End: December 03, 2024 Team Status: Active Member Role/Relationship Status Dates Jenniffer Perea AUTOMOTIVE FLEET SUPERVISOR, AUTOMOTIVE FLEET SUPERVISOR-C Primary Care Provider Active Team Status: Inactive Member Role/Relationship Status Dates Jenniffer Perea AUTOMOTIVE FLEET SUPERVISOR, AUTOMOTIVE FLEET SUPERVISOR-C Primary Care Provider Active Start: August 27, 2024 End: August 27, 2024 Jenniffer Perea AUTOMOTIVE FLEET SUPERVISOR, AUTOMOTIVE FLEET SUPERVISOR-C Referring Provider Active Start: August 27, 2024 End: August 27, 2024 Dr. Lashay Fields DO Attending Provider Activ e Start: August 27, 2024 End: August 27, 2024 Team Status: Inactive Member Role/Relationship Status Dates Jenniffer Perea AUTOMOTIVE FLEET SUPERVISOR, AUTOMOTIVE FLEET SUPERVISOR-C Primary Care Provider Active Start: September 24, 2024 End: September 24, 2024 Jenniffer Perea AUTOMOTIVE FLEET SUPERVISOR, AUTOMOTIVE FLEET SUPERVISOR-C Referring Provider Active Start: September 24, 2024 End: September 24, 2024 Dr. Sophia Ellison MD Attending Provider Active Start: September 24, 2024 End: September 24, 2024 Team Status: Inactive Member Role/Relationship Status Dates Jenniffer Perea AUTOMOTIVE FLEET SUPERVISOR, AUTOMOTIVE FLEET SUPERVISOR-C Primary Care Provider Active Start: October 22, 2024 End: October 22, 2024 Dr. Sophia Ellison MD Attending Provider Active Start: October 22, 2024 End: October 22, 2024 Dr. Sophia Ellison MD Referring Provider Active Start: October 22, 2024 End: October 22, 2024 Team Status: Inactive Member Role/Relationship Status Dates Jenniffer Perea AUTOMOTIVE FLEET SUPERVISOR, AUTOMOTIVE FLEET SUPERVISOR-C Primary Care Provider Active Start: October 22, 2024 End: October 22, 2024 Jenniffer Perea AUTOMOTIVE FLEET SUPERVISOR, AUTOMOTIVE FLEET SUPERVISOR-C Referring Provider Active Start: October 22, 2024 End: October 22, 2024 Malathi Magdaleno NP, AUTOMOTIVE FLEET SUPERVISOR-C Attending Provider Active Start: October 22, 2024 End: October 22, 2024 Team Status: Inactive Member Role/Relationship Status Dates Jenniffer Perea AUTOMOTIVE FLEET SUPERVISOR, AUTOMOTIVE FLEET SUPERVISOR-C Primary Care Provider Active Start: October 28, 2024 End: October 29, 2024 Dr. Sophia Ellison MD Attending Provider Active Start: October 28, 2024 End: October 29, 2024 Dr. Sophia Ellison MD Referring Provider Active Start: October 28, 2024 End: October 29, 2024 Team Status: Active Member Role/Relationship Status Dates Jenniffer Perea AUTOMOTIVE FLEET SUPERVISOR, AUTOMOTIVE FLEET SUPERVISOR-C Primary Care Provider Active Start: October 29, 2024 Dr. Sophia Ellison MD Attending Provider Active Start: October 29, 2024 Dr. Sophia Ellison MD Other Provider Active Start: October 29, 2024 Team Status: Inactive Member Role/Relationship Status Dates Jenniffer Perea AUTOMOTIVE FLEET SUPERVISOR, AUTOMOTIVE FLEET SUPERVISOR-C Primary Care Provider Active Start: November 06, 2024 End: November 06, 2024 Jenniffer Perea AUTOMOTIVE FLEET SUPERVISOR, AUTOMOTIVE FLEET SUPERVISOR-C Referring Provider Active Start: November 06, 2024 End: November 06, 2024 Gonzalez Dunne CNM Attending Provider Active S tart: November 06, 2024 End: November 06, 2024 Team Status: Inactive Member Role/Relationship Status Dates Jenniffer Perea AUTOMOTIVE FLEET SUPERVISOR, AUTOMOTIVE FLEET SUPERVISOR-C Primary Care Provider Active Start: November 19, 2024 End: November 19, 2024 Jenniffer Perea AUTOMOTIVE FLEET SUPERVISOR, AUTOMOTIVE FLEET SUPERVISOR-C Referring Provider Active Start: November 19, 2024 End: November 19, 2024 Malathi Magdaleno AUTOMOTIVE FLEET SUPERVISOR, AUTOMOTIVE FLEET SUPERVISOR-C Attending Provider Active Start: November 19, 2024 End: November 19, 2024 Team Status: Inactive Member Role/Relationship Status Dates Jenniffer Perea AUTOMOTIVE FLEET SUPERVISOR, AUTOMOTIVE FLEET SUPERVISOR-C Primary Care Provider Active Start: December 03, 2024 End: December 03, 2024 Jenniffer Perea AUTOMOTIVE FLEET SUPERVISOR, AUTOMOTIVE FLEET SUPERVISOR-C Referring Provider Active Start: December 03, 2024 End: December 03, 2024 Dr. Lashay Fiedls DO Attending Provider Activ e Start: December 03, 2024 End: December 03, 2024 Team Status: Inactive Member Role/Relationship Status Dates Jenniffer Perea AUTOMOTIVE FLEET SUPERVISOR, AUTOMOTIVE FLEET SUPERVISOR-C Primary Care Provider Active Start: December 13, 2024 End: December 13, 2024 Dr. Sophia Ellison MD Attending Provider Active Start: December 13, 2024 End: December 13, 2024 Dr. Sophia Ellison MD Referring Provider Active Start: December 13, 2024 End: December 13, 2024 Team Status: Active Member Role/Relationship Status Dates Jenniffer Perea AUTOMOTIVE FLEET SUPERVISOR, AUTOMOTIVE FLEET SUPERVISOR-C Primary Care Provider Active Start: December 13, 2024 Dr. Sophia Ellison MD Attending Provider Active Start: December 13, 2024 Dr. Sophia Ellison MD Referring Provider Active Start: December 13, 2024 Dr. Sophia Ellison MD Other Provider Active Start: December 13, 2024 Team Status: Inactive Member Role/Relationship Status Dates Jenniffer Perea AUTOMOTIVE FLEET SUPERVISOR, AUTOMOTIVE FLEET SUPERVISOR-C Primary Care Provider Active Start: December 17, 2024 End: December 17, 2024 Jenniffer Perea AUTOMOTIVE FLEET SUPERVISOR, AUTOMOTIVE FLEET SUPERVISOR-C Referring Provider Active Start: December 17, 2024 End: December 17, 2024 Malathi Magdaleno AUTOMOTIVE FLEET SUPERVISOR, AUTOMOTIVE FLEET SUPERVISOR-C Attending Provider Active Start: December 17, 2024 End: December 17, 2024 Team Status: Inactive Member Role/Relationship Status Dates Jenniffer Perea AUTOMOTIVE FLEET SUPERVISOR, AUTOMOTIVE FLEET SUPERVISOR-C Primary Care Provider Active Start: December 25, 2024 End: December 25, 2024 Dr. Lashay Fields DO Attending Provider Activ e Start: December 25, 2024 End: December 25, 2024 Dr. Lashay Fields DO Referring Provider Activ e Start: December 25, 2024 End: December 25, 2024 Team Status: Inactive Member Role/Relationship Status Dates Jenniffer Perea AUTOMOTIVE FLEET SUPERVISOR, AUTOMOTIVE FLEET SUPERVISOR-C Primary Care Provider Active Start: September 24, 2024 End: September 24, 2024 Jenniffer Perea AUTOMOTIVE FLEET SUPERVISOR, AUTOMOTIVE FLEET SUPERVISOR-C Referring Provider Active Start: September 24, 2024 End: September 24, 2024 Dr. Sophia Ellison MD Attending Provider Active Start: September 24, 2024 End: September 24, 2024 Team Status: Inactive Member Role/Relationship Status Dates Jenniffer Perea AUTOMOTIVE FLEET SUPERVISOR, AUTOMOTIVE FLEET SUPERVISOR-C Primary Care Provider Active Start: October 22, 2024 End: October 22, 2024 Dr. Sophia Ellison MD Attending Provider Active Start: October 22, 2024 End: October 22, 2024 Dr. Sophia Ellison MD Referring Provider Active Start: October 22, 2024 End: October 22, 2024 Team Status: Inactive Member Role/Relationship Status Dates Jenniffer Perea AUTOMOTIVE FLEET SUPERVISOR, AUTOMOTIVE FLEET SUPERVISOR-C Primary Care Provider Active Start: October 22, 2024 End: October 22, 2024 Jenniffer Perea AUTOMOTIVE FLEET SUPERVISOR, AUTOMOTIVE FLEET SUPERVISOR-C Referring Provider Active Start: October 22, 2024 End: October 22, 2024 Malathi Magdaleno AUTOMOTIVE FLEET SUPERVISOR, AUTOMOTIVE FLEET SUPERVISOR-C Attending Provider Active Start: October 22, 2024 End: October 22, 2024 Team Status: Inactive Member Role/Relationship Status Dates Jenniffer Perea AUTOMOTIVE FLEET SUPERVISOR, AUTOMOTIVE FLEET SUPERVISOR-C Primary Care Provider Active Start: October 28, 2024 End: October 29, 2024 Dr. Sophia Ellison MD Attending Provider Active Start: October 28, 2024 End: October 29, 2024 Dr. Sophia Ellison MD Referring Provider Active Start: October 28, 2024 End: October 29, 2024 Team Status: Active Member Role/Relationship Status Dates Jenniffer Perea AUTOMOTIVE FLEET SUPERVISOR, AUTOMOTIVE FLEET SUPERVISOR-C Primary Care Provider Active Start: October 29, 2024 Dr. Sophia Ellison MD Attending Provider Active Start: October 29, 2024 Dr. Sophia Ellison MD Other Provider Active Start: October 29, 2024 Team Status: Inactive Member Role/Relationship Status Dates Jenniffer Perea AUTOMOTIVE FLEET SUPERVISOR, AUTOMOTIVE FLEET SUPERVISOR-C Primary Care Provider Active Start: November 06, 2024 End: November 06, 2024 Jenniffer Perea AUTOMOTIVE FLEET SUPERVISOR, AUTOMOTIVE FLEET SUPERVISOR-C Referring Provider Active Start: November 06, 2024 End: November 06, 2024 Gonzalez Dunne CNM Attending Provider Active S tart: November 06, 2024 End: November 06, 2024 Team Status: Inactive Member Role/Relationship Status Dates Jenniffer Perea AUTOMOTIVE FLEET SUPERVISOR, AUTOMOTIVE FLEET SUPERVISOR-C Primary Care Provider Active Start: November 19, 2024 End: November 19, 2024 Jenniffer Perea AUTOMOTIVE FLEET SUPERVISOR, AUTOMOTIVE FLEET SUPERVISOR-C Referring Provider Active Start: November 19, 2024 End: November 19, 2024 Malathi Magdaleno AUTOMOTIVE FLEET SUPERVISOR, AUTOMOTIVE FLEET SUPERVISOR-C Attending Provider Active Start: November 19, 2024 End: November 19, 2024 Team Status: Inactive Member Role/Relationship Status Dates Jenniffer Perea AUTOMOTIVE FLEET SUPERVISOR, AUTOMOTIVE FLEET SUPERVISOR-C Primary Care Provider Active Start: December 03, 2024 End: December 03, 2024 Jenniffer Perea AUTOMOTIVE FLEET SUPERVISOR, AUTOMOTIVE FLEET SUPERVISOR-C Referring Provider Active Start: December 03, 2024 End: December 03, 2024 Dr. Lashay Fields DO Attending Provider Activ e Start: December 03, 2024 End: December 03, 2024 Team Status: Inactive Member Role/Relationship Status Dates Jenniffer Perea AUTOMOTIVE FLEET SUPERVISOR, AUTOMOTIVE FLEET SUPERVISOR-C Primary Care Provider Active Start: December 13, 2024 End: December 13, 2024 Dr. Sophia Ellison MD Attending Provider Active Start: December 13, 2024 End: December 13, 2024 Dr. Sophia Ellison MD Referring Provider Active Start: December 13, 2024 End: December 13, 2024 Team Status: Active Member Role/Relationship Status Dates Jenniffer Perea AUTOMOTIVE FLEET SUPERVISOR, AUTOMOTIVE FLEET SUPERVISOR-C Primary Care Provider Active Start: December 13, 2024 Dr. Sophia Ellison MD Attending Provider Active Start: December 13, 2024 Dr. Sophia Ellison MD Referring Provider Active Start: December 13, 2024 Dr. Sophia Ellison MD Other Provider Active Start: December 13, 2024 Team Status: Inactive Member Role/Relationship Status Dates Jenniffer Perea AUTOMOTIVE FLEET SUPERVISOR, AUTOMOTIVE FLEET SUPERVISOR-C Primary Care Provider Active Start: December 17, 2024 End: December 17, 2024 Jenniffer Perea AUTOMOTIVE FLEET SUPERVISOR, AUTOMOTIVE FLEET SUPERVISOR-C Referring Provider Active Start: December 17, 2024 End: December 17, 2024 Malathi Magdaleno AUTOMOTIVE FLEET SUPERVISOR, AUTOMOTIVE FLEET SUPERVISOR-C Attending Provider Active Start: December 17, 2024 End: December 17, 2024 Team Status: Inactive Member Role/Relationship Status Dates Jenniffer Perea AUTOMOTIVE FLEET SUPERVISOR, AUTOMOTIVE FLEET SUPERVISOR-C Primary Care Provider Active Start: December 25, 2024 End: December 25, 2024 Dr. Lashay Fields DO Attending Provider Activ e Start: December 25, 2024 End: December 25, 2024 Dr. Lashay Fields DO Referring Provider Activ e Start: December 25, 2024 End: December 25, 2024 Team Status: Active Member Role/Relationship Status Dates Jenniffer Perea AUTOMOTIVE FLEET SUPERVISOR, AUTOMOTIVE FLEET SUPERVISOR-C Primary Care Provider Active Start: December 25, 2024 Dr. Lashay Fields DO Attending Provider Activ e Start: December 25, 2024 Dr. Lashay Fields DO Referring Provider Activ e Start: December 25, 2024 Dr. Lashay Fields DO Other Provider Active Start: December 25, 2024 Team Status: Inactive Member Role/Relationship Status Dates Jenniffer Perea AUTOMOTIVE FLEET SUPERVISOR, AUTOMOTIVE FLEET SUPERVISOR-C Primary Care Provider Active Start: December 31, 2024 End: December 31, 2024 Jenniffer Perea AUTOMOTIVE FLEET SUPERVISOR, AUTOMOTIVE FLEET SUPERVISOR-C Referring Provider Active Start: December 31, 2024 End: December 31, 2024 Gonzalez Dunne CNM Attending Provider Active S tart: December 31, 2024 End: December 31, 2024 Team Status: Inactive Member Role/Relationship Status Dates Jenniffer Perea NP, AUTOMOTIVE FLEET SUPERVISOR-C Primary Care Provider Active Start: December 31, 2024 End: December 31, 2024 Gonzalez Dunne CNM Attending Provider Active S tart: December 31, 2024 End: December 31, 2024 Gonzalez Dunne CNM Referring Provider Active S tart: December 31, 2024 End: December 31, 2024 Team Status: Active Member Role/Relationship Status Dates Jenniffer Perea AUTOMOTIVE FLEET SUPERVISOR, AUTOMOTIVE FLEET SUPERVISOR-C Primary Care Provider Active Start: December 31, 2024 Gonzalez Dunne CNM Attending Provider Active S tart: December 31, 2024 Gonzalez Dunne CNM Referring Provider Active S tart: December 31, 2024 Team Status: Inactive Member Role/Relationship Status Dates Jenniffer Perea AUTOMOTIVE FLEET SUPERVISOR, AUTOMOTIVE FLEET SUPERVISOR-C Primary Care Provider Active Start: December 31, 2024 End: December 31, 2024 Gonzalez Dunne CNM Attending Provider Active S tart: December 31, 2024 End: December 31, 2024 Gonzalez Dunne CNM Referring Provider Active S tart: December 31, 2024 End: December 31, 2024 Team Status: Inactive Member Role/Relationship Status Dates Jenniffer Perea NP, AUTOMOTIVE FLEET SUPERVISOR-C Primary Care Provider Active Start: January 07, 2025 End: January 07, 2025 Jenniffer Perea NP, AUTOMOTIVE FLEET SUPERVISOR-C Referring Provider Active Start: January 07, 2025 End: January 07, 2025 Gonzalez Dunne CNM Attending Provider Active S tart: January 07, 2025 End: January 07, 2025 Team Status: Inactive Member Role/Relationship Status Dates Jenniffer Perea AUTOMOTIVE FLEET SUPERVISOR, AUTOMOTIVE FLEET SUPERVISOR-C Primary Care Provider Active Start: January 15, 2025 End: January 15, 2025 Jenniffer Perea AUTOMOTIVE FLEET SUPERVISOR, AUTOMOTIVE FLEET SUPERVISOR-C Referring Provider Active Start: January 15, 2025 End: January 15, 2025 Dr. Lashay Fields , Attending Provider Activ e Start: January 15, 2025 End: January 15, 2025 Team Status: Inactive Member Role/Relationship Status Dates Jenniffer Perea AUTOMOTIVE FLEET SUPERVISOR, AUTOMOTIVE FLEET SUPERVISOR-C Primary Care Provider Active Start: January 21, 2025 End: January 21, 2025 Jenniffer Perea AUTOMOTIVE FLEET SUPERVISOR, AUTOMOTIVE FLEET SUPERVISOR-C Referring Provider Active Start: January 21, 2025 End: January 21, 2025 Dr. Sophia Ellison MD Attending Provider Active Start: January 21, 2025 End: January 21, 2025 Team Status: Inactive Member Role/Relationship Status Dates Jenniffer Perea AUTOMOTIVE FLEET SUPERVISOR, AUTOMOTIVE FLEET SUPERVISOR-C Primary Care Provider Active Start: October 22, 2024 End: October 22, 2024 Dr. Sophia Ellison MD Attending Provider Active Start: October 22, 2024 End: October 22, 2024 Dr. Sophia Ellison MD Referring Provider Active Start: October 22, 2024 End: October 22, 2024 Team Status: Inactive Member Role/Relationship Status Dates Jenniffer Perea AUTOMOTIVE FLEET SUPERVISOR, AUTOMOTIVE FLEET SUPERVISOR-C Primary Care Provider Active Start: October 22, 2024 End: October 22, 2024 Jenniffer Perea AUTOMOTIVE FLEET SUPERVISOR, AUTOMOTIVE FLEET SUPERVISOR-C Referring Provider Active Start: October 22, 2024 End: October 22, 2024 Malathi Magdaleno AUTOMOTIVE FLEET SUPERVISOR, AUTOMOTIVE FLEET SUPERVISOR-C Attending Provider Active Start: October 22, 2024 End: October 22, 2024 Team Status: Inactive Member Role/Relationship Status Dates Jenniffer Perea NP, AUTOMOTIVE FLEET SUPERVISOR-C Primary Care Provider Active Start: October 28, 2024 End: October 29, 2024 Dr. Sophia Ellison MD Attending Provider Active Start: October 28, 2024 End: October 29, 2024 Dr. Sophia Ellison MD Referring Provider Active Start: October 28, 2024 End: October 29, 2024 Team Status: Active Member Role/Relationship Status Dates Jenniffer Perea AUTOMOTIVE FLEET SUPERVISOR, AUTOMOTIVE FLEET SUPERVISOR-C Primary Care Provider Active Start: October 29, 2024 Dr. Sophia Ellison MD Attending Provider Active Start: October 29, 2024 Dr. Sophia Ellison MD Other Provider Active Start: October 29, 2024 Team Status: Inactive Member Role/Relationship Status Dates Jenniffer Perea AUTOMOTIVE FLEET SUPERVISOR, AUTOMOTIVE FLEET SUPERVISOR-C Primary Care Provider Active Start: November 06, 2024 End: November 06, 2024 Jenniffer Perea AUTOMOTIVE FLEET SUPERVISOR, AUTOMOTIVE FLEET SUPERVISOR-C Referring Provider Active Start: November 06, 2024 End: November 06, 2024 Gonzalez Dunne CNM Attending Provider Active S tart: November 06, 2024 End: November 06, 2024 Team Status: Inactive Member Role/Relationship Status Dates Jenniffer Perea AUTOMOTIVE FLEET SUPERVISOR, AUTOMOTIVE FLEET SUPERVISOR-C Primary Care Provider Active Start: November 19, 2024 End: November 19, 2024 Jenniffer Perea AUTOMOTIVE FLEET SUPERVISOR, AUTOMOTIVE FLEET SUPERVISOR-C Referring Provider Active Start: November 19, 2024 End: November 19, 2024 Malathi Magdaleno AUTOMOTIVE FLEET SUPERVISOR, AUTOMOTIVE FLEET SUPERVISOR-C Attending Provider Active Start: November 19, 2024 End: November 19, 2024 Team Status: Inactive Member Role/Relationship Status Dates Jenniffer Perea AUTOMOTIVE FLEET SUPERVISOR, AUTOMOTIVE FLEET SUPERVISOR-C Primary Care Provider Active Start: December 03, 2024 End: December 03, 2024 Jenniffer Perea AUTOMOTIVE FLEET SUPERVISOR, AUTOMOTIVE FLEET SUPERVISOR-C Referring Provider Active Start: December 03, 2024 End: December 03, 2024 Dr. Lashay Fields DO Attending Provider Activ e Start: December 03, 2024 End: December 03, 2024 Team Status: Inactive Member Role/Relationship Status Dates Jenniffer Perea AUTOMOTIVE FLEET SUPERVISOR, AUTOMOTIVE FLEET SUPERVISOR-C Primary Care Provider Active Start: December 13, 2024 End: December 13, 2024 Dr. Sophia Ellison MD Attending Provider Active Start: December 13, 2024 End: December 13, 2024 Dr. Sophia Ellison MD Referring Provider Active Start: December 13, 2024 End: December 13, 2024 Team Status: Active Member Role/Relationship Status Dates Jenniffer Perea NP, AUTOMOTIVE FLEET SUPERVISOR-C Primary Care Provider Active Start: December 13, 2024 Dr. Sophia Ellison MD Attending Provider Active Start: December 13, 2024 Dr. Sophia Ellison MD Referring Provider Active Start: December 13, 2024 Dr. Sophia Ellison MD Other Provider Active Start: December 13, 2024 Team Status: Inactive Member Role/Relationship Status Dates Jenniffer Perea AUTOMOTIVE FLEET SUPERVISOR, AUTOMOTIVE FLEET SUPERVISOR-C Primary Care Provider Active Start: December 17, 2024 End: December 17, 2024 Jenniffer Perea NP, AUTOMOTIVE FLEET SUPERVISOR-C Referring Provider Active Start: December 17, 2024 End: December 17, 2024 Malathi Magdaleno AUTOMOTIVE FLEET SUPERVISOR, AUTOMOTIVE FLEET SUPERVISOR-C Attending Provider Active Start: December 17, 2024 End: December 17, 2024 Team Status: Inactive Member Role/Relationship Status Dates Jenniffer Perea AUTOMOTIVE FLEET SUPERVISOR, AUTOMOTIVE FLEET SUPERVISOR-C Primary Care Provider Active Start: December 25, 2024 End: December 25, 2024 Dr. Lashay Fields , Attending Provider Activ e Start: December 25, 2024 End: December 25, 2024 Dr. Lashay Fields DO Referring Provider Activ e Start: December 25, 2024 End: December 25, 2024 Team Status: Active Member Role/Relationship Status Dates Jenniffer Perea NP, AUTOMOTIVE FLEET SUPERVISOR-C Primary Care Provider Active Start: December 25, 2024 Dr. Lashay Fields DO Attending Provider Activ e Start: December 25, 2024 Dr. Lashay Fields DO Referring Provider Activ e Start: December 25, 2024 Dr. Lashay Fields , Other Provider Active Start: December 25, 2024 Team Status: Inactive Member Role/Relationship Status Dates Jenniffer Perea NP, AUTOMOTIVE FLEET SUPERVISOR-C Primary Care Provider Active Start: December 31, 2024 End: December 31, 2024 Jenniffer Perea NP, AUTOMOTIVE FLEET SUPERVISOR-C Referring Provider Active Start: December 31, 2024 End: December 31, 2024 Gonzalez Dunne CNM Attending Provider Active S tart: December 31, 2024 End: December 31, 2024 Team Status: Inactive Member Role/Relationship Status Dates Jenniffer Perea NP, AUTOMOTIVE FLEET SUPERVISOR-C Primary Care Provider Active Start: December 31, 2024 End: December 31, 2024 Gonzalez Dunne CNM Attending Provider Active S tart: December 31, 2024 End: December 31, 2024 Gonzalez Dunne CNM Referring Provider Active S tart: December 31, 2024 End: December 31, 2024 Team Status: Inactive Member Role/Relationship Status Dates Jenniffer Perea NP, AUTOMOTIVE FLEET SUPERVISOR-C Primary Care Provider Active Start: January 07, 2025 End: January 07, 2025 Jenniffer Perea NP, AUTOMOTIVE FLEET SUPERVISOR-C Referring Provider Active Start: January 07, 2025 End: January 07, 2025 Gonzalez Dunne CNM Attending Provider Active S tart: January 07, 2025 End: January 07, 2025 Team Status: Inactive Member Role/Relationship Status Dates Jenniffer Perea NP, AUTOMOTIVE FLEET SUPERVISOR-C Primary Care Provider Active Start: January 15, 2025 End: January 15, 2025 Jenniffer Perea NP, AUTOMOTIVE FLEET SUPERVISOR-C Referring Provider Active Start: January 15, 2025 End: January 15, 2025 Dr. Lashay Fields DO Attending Provider Activ e Start: January 15, 2025 End: January 15, 2025 Team Status: Inactive Member Role/Relationship Status Dates Jenniffer Perea NP, AUTOMOTIVE FLEET SUPERVISOR-C Primary Care Provider Active Start: January 21, 2025 End: January 21, 2025 Jenniffer Perea NP, AUTOMOTIVE FLEET SUPERVISOR-C Referring Provider Active Start: January 21, 2025 End: January 21, 2025 Dr. Sophia Ellison MD Attending Provider Active Start: January 21, 2025 End: January 21, 2025 Team Status: Inactive Member Role/Relationship Status Dates Jenniffer Perea NP, AUTOMOTIVE FLEET SUPERVISOR-C Primary Care Provider Active Start: January 21, 2025 End: January 21, 2025 Dr. Sophia Ellison MD Attending Provider Active Start: January 21, 2025 End: January 21, 2025 Team Status: Inactive Member Role/Relationship Status Dates Jenniffer Perea NP, AUTOMOTIVE FLEET SUPERVISOR-C Primary Care Provider Active Start: January 28, 2025 End: January 28, 2025 Jenniffer Perea NP, AUTOMOTIVE FLEET SUPERVISOR-C Referring Provider Active Start: January 28, 2025 End: January 28, 2025 Gonzlaez Dunne CNM Attending Provider Active S tart: [...] HR is 60 or greater. If beta wia is contraindicated (HR less than 60, heart [...] BE BASED ON THE PRIMARY CLINICAL RECORDS. [employer] provides no warranty or guarantee of the accuracy or completeness of information in this document.
[2025-01-30] MEDS: Lactated Ringers 1,000 ML 999 ML IV (05:22)
[2025-01-30 05:40] LABS: Hematocrit 42.8 % (37-47); Hemoglobin 14.4 g/dL (12.0-15.0); Immature Granulocytes Count 0.150 X10^3/uL (0.0-0.0); Mean Corp Hgb Conc 33.6 g/dL (32-36); Mean Corpuscular Volume 91.3 fL (81-99); Mean Platelet Vol. 9.6 fl (6.2-12.0); NRBC Flagged by Analyzer 0 % (0-5); Platelet Count 312 K/mm3 (150-450); RBC Distribution Width CV 13.2 % (11.6-14.6); RBC Distribution Width SD 43.8 fl (35.1-43.9); Red Blood Count 4.69 M/mm3 (4.2-5.4); White Blood Count 14.0 K/mm3 (4.4-11.0)
[2025-01-30 06:18] LABS: Syphilis Antibodies Nonreactive (Nonreactive)
[2025-01-30] MEDS: Lactated Ringers 1,000 ML 200 ML IV ×2 (06:23→09:08)
[2025-01-30] MEDS: fentaNYL-bupivacaine (epidural) 100 ML BAG EPIDURAL (06:48)
--- NOTE | 2025-01-30 07:41 | HP.PCM.OB_ITS ---
HPI - General General Date of Admission: 01/30/25 HPI Narrative SANG SHANE, is a 24 y/o @ 40 weeks 3 days who presents to L&D with painful contractions requesting an epidural. At around 4 am the nurse checked her cervix and she was 4 cm dilated with bloody show. The decision was made to admit to L&D for active labor management and for epidural. She has a history of prior vaginal delivery that was complicated by retained placenta. She requests a physician only for delivery. Maternal Data Information JANNET Calculator Estimated Delivery Date Method Current WG Current Estimate 01/27/25 LMP (Certain) 40w 3d PFSH PFS Medical History (Updated 01/30/25 @ 05:13 by Eleni Torres) Asthma Headache Home Medications ?Medication ?Instructions ?Recorded ?Last Taken ?Type albuterol sulfate 90 mcg/actuation 2 puff inhalation Q 6H PRN 08/08/23 08/14/24 History aerosol inhaler shortness of breath or wheez ing docosahexaenoic acid 200 mg 1 mg PO QHS 06/26/2401/29 20:00 History capsule ( DHA) lactobacillus combination no.4 3 3,000 mmu cells PO QD AY 06/26/24 01/29/25 20:00 History billion cell capsule (Probiotic) magnesium 200 mg tablet 350 mg PO QDAY 06/26/2401/11 20:00 History acetaminophen 500 mg capsule 1,000 mg PO Q6H PRN pain 10/29/24 01/29/25 20:00 History nystatin 100,000 unit/gram topical 1 applic topical BI D #30 grams 12/17/24 01/29/25 08:00 Rx powder melatonin 3 mg capsule 2 mg PO PRN 12/25/24 5 21:00 History Held on 01/30/25. Instructions: Order Completed famotidine 20 mg tablet (Pepcid) 10 mg PO DAILY 01/29/25 20:00 History Allergy/AdvReac Type Severity Reaction Status Date / Time No Known Allergies Allergy Verified 01/30/25 04:34 Family History Grandmother Breast cancer maternal Grandfather Cancer Skin Aunt Cancer Skin Grandmother Heart disease Myocardial infarction Grandfather Kidney failure Father Pre-diabetes Surgical History S/P nasal surgery S/P wisdom tooth extraction S/P D&C (status post dilation and curettage) Social History adopted: No household members: spouse and children number of children: 1 current occupation: [employer] current occupational exposures/hazards: No pets and animals: No history of recent travel: No sexually active: Yes Smoking Status: Never smoker alcohol intake: current alcohol intake frequency: holidays/special occasions only details: Not while substance use type: does not use well-balanced diet: daily or most days caffeine: Yes Type: coffee eating out: rarely or never during the past year weight has: remained stable what type of physical activity do you participate in: walking and weight training frequency: 5-6 times per week duration: 30-45 minutes/day feliciano/church: [employer] seatbelt use: always do you feel safe at home: Yes additional social history: : Armando- [employer] @ [employer] History 2 Elective abortions Hx Para 1 Spontaneous abortions Hx # Term Pregnancies Ectopic pregnancies Hx # Pregnancies Multiple births # of living children 1 Past Pregnancies Del. Date Name GA/Weeks Outcome Route Bth Weight Gen Labor Lgth Anesthesia Del Locatn Provider FOB 12/09/22 Ines 41 live - full term 7lbs 6oz Female 12 hours epidural Ina Rigo Roberts Delivery Date: 12/09/22 Last Updated by: Rachel Peña RN Retained placenta - bleed x8wk pp, D&C 8wk pp Visit Details Expected Delivery Route/Plan Labor Preferences- CB/BF classes: no labor support person: Armando labor intervention preferences: [] pain management options preferred: epidural cut cord/dad catch: maybe : yes PP control planned: discussed discussed possible routes of delivery and associated risks: [] special requests: [] Plans Covid status: [] Flu vaccine: [] Tdap vaccine: given Rhogam: na LARC form signed: yes Problem list reviewed and updated with the most current plan of care details and appropriate orders placed. Relevant counseling for the gestational age provided. Continue routine care and follow up unless otherwise noted in visit notes/problem list details OB Flowsheet Initial Weight: 189 lb Date -?-?-?-?-?-?-?-?-?-?-?-?- EGA Weight BP Urine Prot -?-?-?-?-?-?-?-?-?-?-?-?- Glucose FHR FuHt Pres Dilation -?-?-?-?-?-?-?-?-?-?-?-?- Effaced St Visit Note 07/02/24 -?-?-?--?-?-?-?-?-?-?-?-?- 10w 1d 189 lb (+0 oz) 112/76 -?-?-?-?-?-?-?-?-?-?-?-?- 176 -?-?-?-?-?-?-?-?-?-?-?-?- JV- CRL measures 10 weeks 6 days but still not off by more than 7 days. JANNET is per LMP 01/27/25. Desires nipt. was delivered in [facility] last . had retained placenta and D&C several weeks after delivery 07/30/24 -?-?-?-?-?-?-?-?-?-?-?-?- 14w 1d 192 lb 4 oz (+3 lb 4 oz) 124/77 Negative -?-?-?-?-?-?-?-?-?-?-?-?- Negative 168 -?-?-?-?-?-?-?-?-?-?-?-?- KW- no vb/crampi ng. feeling some flutters. anatomy US ordered. 08/27/24 -?-?-?-?-?-?-?-?-?-?-?-?- 18w 1d 201 lb (+12 lb) 115/77 Negative -?-?-?-?-?-?-?-?-?-?-?-?- Negative 176 -?-?-?-?-?-?-?-?-?-?-?-?- JV- pt complains of round ligament pain and pain during sex. was told may have endometriosis. no lof, vaginal bleeding, cramping. 09/24/24 -?-?-?-?-?-?-?-?-?-?-?-?- 22w 1d 202 lb 6 oz (+13 lb 6 oz) 100/63 Negative -?-?-?-?-?-?-?-?-?-?-?-?- Negative 150 -?-?-?-?-?-?-?-?-?-?-?-?- SM- no vb lof go od fm some ijeoma seaman. 10/22/24 -?-?-?-?-?-?-?-?-?-?-?-?- 26w 1d 209 lb 2 oz (+20 lb 2 oz) 98/66 Negative -?-?-?-?-?-?-?-?-?-?-?-?- Negative 143 26 -?-?-?-?-?-?--?-?-?-?-?-?- MH-No VB. Ezra Gan M. Rash comes and goes under breasts, nystatin sent. Larc. 28 wk labs pending 11/06/24 -?-?-?-?-?-?-?-?-?-?-?-?- 28w 2d 214 lb 2 oz (+25 lb 2 oz) 103/51 Negative -?-?-?-?-?-?-?-?-?-?-?-?- Negative 145 29 -?-?-?-?-?-?-?-?-?-?-?-?- KW- no vb/lof. B H ctx becoming more regular- every 3-4 days. increased stress with husbands health concerns and notices a correlation. good fm. Tdap today 12/03/24 -?-?-?-?-?-?-?-?-?-?-?-?- 32w 1d 215 lb (+26 lb) 127/86 Negative -?-?-?-?-?-?-?-?-?-?-?-?- Negative 164 32 Cephalic -?-?-?-?-?-?-?-?-?-?-?-?- JV- lots of ques tions about h/o retained placenta. states would appreciate a physician at delivery . 12/17/24 -?-?-?-?-?-?-?-?-?-?-?-?- 34w 1d 214 lb 4 oz (+25 lb 4 oz) 104/80 Negative -?-?-?-?-?-?-?-?-?-?-?-?- Negative 154 34 Cephalic -?-?-?-?-?-?-?-?-?-?-?-?- MH-NO VB. Good F M. Occa BH ctx. 12/31/24 -?-?-?-?-?-?-?-?-?-?-?-?- 36w 1d 213 lb 2 oz (+24 lb 2 oz) 99/68 Negative -?-?-?-?-?-?-?-?-?-?-?-?- Negative 145 36 Cephalic 2 .5 -?-?-?-?-?-?-?-?-?-?-?-?- 30 -3 KW- no vb/ lof/ctx. good fm. GBS today. increased heart burn and recommended pepcid. chiropractor for hip pain 01/07/25 -?-?-?-?-?-?-?-?-?-?-?-?- 37w 1d 215 lb 2 oz (+26 lb 2 oz) 119/78 Negative -?-?-?-?-?-?-?-?-?-?-?-?- Negative 145 38 Cephalic 3 -?-?-?-?-?-?-?-?-?-?-?-?- 40 -3 KW- no vb/ lof. some regular contractions on and off. good fm 01/15/25 -?-?-?-?-?-?-?-?-?-?-?-?- 38w 2d 213 lb 8 oz (+24 lb 8 oz) 121/76 Negative -?-?-?-?-?-?-?-?-?-?-?-?- Negative 140 38 Cephalic 3 -?-?-?-?-?-?-?-?-?-?-?-?- 40 -3 ALYX ESCAMILLA is undergoing BCG immunotherapy for bladder cancer and chemotherapy and she wonders if safe to be around him. After researching it appears safe as long as no exposure to bodily fluids. wants to do accu puncture next week. 01/21/25 -?-?-?-?-?-?-?-?-?-?-?-?- 39w 1d 214 lb (+25 lb) 116/81 Negative -?-?-?-?-?-?-?-?-?-?-?-?- Negative 140 39 Cephalic 3 -?-?-?-?-?-?-?-?-?-?-?-?- 40 -2 SM- no vb quesitonable lof good fm n oreuglar ctx 01/28/25 -?-?-?-?-?-?-?-?-?-?-?-?- 40w 1d 216 lb (+27 lb) 118/65 Negative -?-?-?-?-?-?-?-?-?-?-?-?- Negative 140 40 Cephalic 4 -?-?-?-?-?-?-?-?-?-?-?-?- 70 -2 KW- no vb/ lof/ctx. good fm IOL set up. Prefers a physician for delivery do to hx of retained placenta. ROS Constitutional Constitutional: Denies change in weight, fatigue, fever(s), headache(s), poor appetite or weakness Eyes Eyes: Denies blurry vision, change in vision, seeing flashes or spots in vision ENT HEENT: Denies dizziness, headache(s), loss taste/smell or sore throat Cardiovascular Cardiovascular: Denies chest pain, dizziness, dyspnea, irregular heart rhythm, leg edema, palpitations, rapid heart rate or vomiting Respiratory/Chest Respiratory/Chest: Denies chest tightness, cough, dyspnea or breast pain Gastrointestinal Gastrointestinal: Denies abdominal pain, anorexia, constipation, cramping, diarrhea, hemorrhoids, vomiting or weight changes Genitourinary Genitourinary: Denies dysuria, flank pain, genital lesions, genital pain, urinary frequency or urinary urgency Musculoskeletal Musculoskeletal: Denies back pain, difficulty walking, joint pain, limited range of motion, muscle cramps or numbness Integumentary Integumentary: Denies lesions or unusual bruising Neurologic Neurologic: Denies abnormal movements, abnormal speech, dizziness, numbness, seizure-like activity or syncope Psychiatric Psychiatric: Denies anxiety, behavioral changes, change in appetite, change in libido, cognitive impairment, confusion, depression, difficulty concentrating, hallucinations or suicidal thoughts Endocrine Endocrinology: Denies excessive sweating, polydipsia or polyuria Hematologic/Lymphatic Hematologic/Lymphatic: Denies easy bleeding, easy bruising or lymphadenopathy Allergic/Immunologic Allergic/Immunologic: Denies itchy eyes, lip swelling, seasonal rhinorrhea, rhinitis, throat swelling, tongue swelling, eczemia, wheezing or asthma Vital Signs Vital Signs Vital Signs: 01/30/25 04:39 01/30/25 04:39 01/30/25 04:39 Temperature 97.7 F L Temperature Source Pulse Rate 93 Respiratory Rate Blood Pressure 121/62 H BP Systolic 121 BP Diastolic 62 Pulse Ox 01/30/25 04:39 01/30/25 04:39 01/30/25 04:39 Temperature Temperature Source Temporal Pulse Rate 80 Respiratory Rate Blood Pressure BP Systolic BP Diastolic Pulse Ox 96 01/30/25 04:39 01/30/25 04:39 01/30/25 04:39 Temperature 97.7 F L Temperature Source Pulse Rate Respiratory Rate 16 Blood Pressure BP Systolic BP Diastolic Pulse Ox 96 01/30/25 05:30 01/30/25 05:30 01/30/25 05:30 Temperature Temperature Source Temporal Pulse Rate 83 Respiratory Rate Blood Pressure 142/63 H BP Systolic 142 BP Diastolic 63 Pulse Ox 01/30/25 05:30 01/30/25 05:30 01/30/25 05:30 Temperature 97.5 F L Temperature Source Pulse Rate Respiratory Rate 16 Blood Pressure BP Systolic BP Diastolic Pulse Ox 99 01/30/25 06:12 01/30/25 06:12 01/30/25 06:17 Temperature Temperature Source Pulse Rate 95 91 Respiratory Rate Blood Pressure BP Systolic BP Diastolic Pulse Ox 98 01/30/25 06:17 01/30/25 06:18 01/30/25 06:18 Temperature Temperature Source Pulse Rate 90 Respiratory Rate Blood Pressure 132/69 H BP Systolic 132 BP Diastolic 69 Pulse Ox 99 01/30/25 06:18 01/30/25 06:22 01/30/25 06:22 Temperature Temperature Source Pulse Rate 86 Respiratory Rate 18 Blood Pressure BP Systolic BP Diastolic Pulse Ox 100 01/30/25 06:23 01/30/25 06:23 01/30/25 06:23 Temperature Temperature Source Pulse Rate 97 Respiratory Rate 18 Blood Pressure 127/61 H BP Systolic 127 BP Diastolic 61 Pulse Ox 01/30/25 06:27 01/30/25 06:27 01/30/25 06:28 Temperature Temperature Source Temporal Pulse Rate 88 Respiratory Rate Blood Pressure BP Systolic BP Diastolic Pulse Ox 99 01/30/25 06:28 01/30/25 06:28 01/30/25 06:28 Temperature Temperature Source Pulse Rate 94 Respiratory Rate 18 Blood Pressure 132/61 H BP Systolic 132 BP Diastolic 61 Pulse Ox 01/30/25 06:28 01/30/25 06:32 01/30/25 06:32 Temperature 97.3 F L Temperature Source Pulse Rate 91 Respiratory Rate Blood Pressure BP Systolic BP Diastolic Pulse Ox 98 01/30/25 06:33 01/30/25 06:37 01/30/25 06:37 Temperature Temperature Source Pulse Rate 103 H Respiratory Rate 18 Blood Pressure BP Systolic BP Diastolic Pulse Ox 97 01/30/25 06:39 01/30/25 06:39 01/30/25 06:39 Temperature Temperature Source Pulse Rate 96 Respiratory Rate 18 Blood Pressure 120/65 BP Systolic 120 BP Diastolic 65 Pulse Ox 01/30/25 06:42 01/30/25 06:42 01/30/25 06:44 Temperature Temperature Source Pulse Rate 102 H 105 H Respiratory Rate Blood Pressure BP Systolic BP Diastolic Pulse Ox 97 01/30/25 06:44 01/30/25 06:47 01/30/25 06:47 Temperature Temperature Source Pulse Rate 112 H Respiratory Rate Blood Pressure 122/69 H BP Systolic 122 BP Diastolic 69 Pulse Ox 88 01/30/25 06:47 01/30/25 06:47 01/30/25 06:47 Temperature Temperature Source Pulse Rate 101 H Respiratory Rate 18 Blood Pressure BP Systolic BP Diastolic Pulse Ox 96 01/30/25 06:52 01/30/25 06:52 01/30/25 06:53 Temperature Temperature Source Pulse Rate 91 Respiratory Rate Blood Pressure 116/68 BP Systolic 116 BP Diastolic 68 Pulse Ox 98 01/30/25 06:53 01/30/25 06:53 01/30/25 06:57 Temperature Temperature Source Pulse Rate 95 95 Respiratory Rate 18 Blood Pressure BP Systolic BP Diastolic Pulse Ox 08/20/25 06:57 01/30/25 06:58 01/30/25 06:58 Temperature Temperature Source Pulse Rate 93 Respiratory Rate Blood Pressure 104/51 L BP Systolic 104 BP Diastolic 51 Pulse Ox 98 01/30/25 06:58 01/30/25 07:02 01/30/25 07:02 Temperature Temperature Source Pulse Rate 87 Respiratory Rate 18 Blood Pressure BP Systolic BP Diastolic Pulse Ox 98 01/30/25 07:04 01/30/25 07:04 01/30/25 07:07 Temperature Temperature Source Pulse Rate 90 86 Respiratory Rate Blood Pressure 86/48 L BP Systolic 86 BP Diastolic 48 Pulse Ox 01/30/25 07:07 01/30/25 07:08 01/30/25 07:08 Temperature Temperature Source Pulse Rate 95 Respiratory Rate Blood Pressure 96/50 L BP Systolic 96 BP Diastolic 50 Pulse Ox 99 01/30/25 07:09 01/30/25 07:09 01/30/25 07:12 Temperature Temperature Source Pulse Rate 88 95 Respiratory Rate Blood Pressure 99/54 L BP Systolic 99 BP Diastolic 54 Pulse Ox 01/30/25 07:12 01/30/25 07:13 01/30/25 07:13 Temperature Temperature Source Pulse Rate 99 Respiratory Rate Blood Pressure 94/51 L BP Systolic 94 BP Diastolic 51 Pulse Ox 100 01/30/25 07:17 01/30/25 07:17 01/30/25 07:18 Temperature Temperature Source Temporal Pulse Rate 97 Respiratory Rate Blood Pressure BP Systolic BP Diastolic Pulse Ox 100 01/30/25 07:18 01/30/25 07:18 01/30/25 07:18 Temperature 97.4 F L Temperature Source Pulse Rate Respiratory Rate 18 Blood Pressure BP Systolic BP Diastolic Pulse Ox 100 01/30/25 07:19 01/30/25 07:19 01/30/25 07:22 Temperature 97.3 F L Temperature Source Pulse Rate 104 H Respiratory Rate Blood Pressure 97/53 L BP Systolic 97 BP Diastolic 53 Pulse Ox 01/30/25 07:22 01/30/25 07:22 01/30/25 07:27 Temperature Temperature Source Pulse Rate 98 91 Respiratory Rate Blood Pressure BP Systolic BP Diastolic Pulse Ox 100 01/30/25 07:27 01/30/25 07:28 01/30/25 07:28 Temperature Temperature Source Pulse Rate 100 Respiratory Rate Blood Pressure 90/50 L BP Systolic 90 BP Diastolic 50 Pulse Ox 100 01/30/25 07:32 01/30/25 07:32 01/30/25 07:32 Temperature Temperature Source Pulse Rate 120 H Respiratory Rate Blood Pressure 117/63 BP Systolic 117 BP Diastolic 63 Pulse Ox 98 01/30/25 07:37 01/30/25 07:37 01/30/25 07:39 Temperature Temperature Source Pulse Rate 101 H Respiratory Rate Blood Pressure 103/49 L BP Systolic 103 BP Diastolic 49 Pulse Ox 99 01/30/25 07:39 Temperature Temperature Source Pulse Rate 102 H Respiratory Rate Blood Pressure BP Systolic BP Diastolic Pulse Ox Weight Weight: 217 lb 6.012 oz Body Mass Index (BMI) 35.1 Physical Exam Const alert, oriented x3, no apparent distress and healthy appearing General Appearance: cooperative; Negative for anxious HEENT normocephalic Face and Sinus: normal facial exam Eyes EOMs intact bilaterally and no scleral icterus General Eye: normal appearance of both eyes Neck full ROM and supple Lymph Lymphatic: no lymphadenopathy noted Chest Chest: Negative for abnormal inspection of the chest Resp normal respiratory effort Effort and Inspection: able to speak in complete sentences Cardio regular rate GI soft to palpation and non-tender Inspection: gravid Palpation: soft; Negative for tender external exam normal Narrative: cx is 5/85/-2 and membranes ruptured with clear fluid return. Amniotic Fluid: ROM+plus Back/Spine no CVA tenderness Extremity normal to inspection, full ROM and no clubbing, cyanosis or edema General Extremity: Negative for calf tenderness or edema Skin Lesions: no lesions Rashes: no rashes Psych mental status grossly normal Labs Labs Labs: Blood Type O POSITIVE Antibody Screen NEGATIVE Hct 42.8 % (37-47) Hgb 14.4 g/dL (12.0-15.0) Syphilis Total Ab Nonreactive (Nonreactive) Rubella IgG Antibody Reactive (Nonreactive) Hep Bs Antigen Non-Reactive (Nonreactive) Hepatitis C Antibody Non-Reactive (Nonreactive) Chlamydia DNA (JOSE) Negative (Negative) N.gonorrhoeae DNA (JOSE) Negative (Negative) HIV 1&2 Antibody Nonreactive (Nonreactive) Glucose 1 Hr 50 gm 85 mg/dL (70-140) Assessment & Plan (1) History of retained placenta: COMMENT: very traumatic-found at 8w pp, calcified, took 45min to remove at surgery. (2) Obesity affecting : QUALIFIERS: Trimester: second trimester Obesity type affecting : unspecified obesity Qualified Code(s): O99.212 - Obesity complicating , second trimester COMMENT: BMI 30.2, HgBA1C w/NOB (3) Supervision of high-risk : QUALIFIERS: Trimester: third trimester Qualified Code(s): O09.93 - Supervision of high risk , unspecified, third trimester COMMENT: PRR, , JANNET 01/27/25,girl Brionna PC: Nies, : Armando (4) : QUALIFIERS: Weeks of gestation: 40 weeks Qualified Code(s): Z3A.40 - 40 weeks gestation of COMMENT: GBS neg, NIPT low risk, carrier negative in first . ntd screen declined. (5) Family history of spina bifida: COMMENT: Pt's sister (also has scoliosis), recommended 4 mg daily folic acid (6) History of eating disorder: COMMENT: Doing well with eating during , please be mindful of weight checks (7) Asthma: QUALIFIERS: Asthma severity: unspecified severity Asthma persistence: unspecified Asthma complication type: unspecified Qualified Code(s): J45.909 - Unspecified asthma, uncomplicated COMMENT: Albuterol PRN (8) Migraine with aura: QUALIFIERS: Status migrainosus presence: without status migrainosus Intractability: not intractable Qualified Code(s): G43.109 - Migraine with aura, not intractable, without status migrainosus COMMENT: avoid estrogen PLAN: Plan Patient presents IAL, plan expectant management for , pitocin PRN and just had AROM Pain management: plans epidural. GBS negative . Management of any complications: none I have reviewed the [facility] and made any clinically relevant updates.
[2025-01-30] MEDS: Oxytocin 15 Units/NS 250ml 15 UNITS/250 ML IV.SOLN 334 UNITS IV (11:05)
--- NOTE | 2025-01-30 11:24 | EX.PCM.OBVAG ---
Assessment & Plan (1) History of retained placenta: COMMENT: very traumatic-found at 8w pp, calcified, took 45min to remove at surgery. (2) Obesity affecting : QUALIFIERS: Trimester: second trimester Obesity type affecting : unspecified obesity Qualified Code(s): O99.212 - Obesity complicating , second trimester COMMENT: BMI 30.2, HgBA1C w/NOB (3) Supervision of high-risk : QUALIFIERS: Trimester: third trimester Qualified Code(s): O09.93 - Supervision of high risk , unspecified, third trimester COMMENT: PRR, , JANNET 01/27/25,girl Brionna PC: Ines, : Armando (4) : QUALIFIERS: Weeks of gestation: 40 weeks Qualified Code(s): Z3A.40 - 40 weeks gestation of COMMENT: GBS neg, NIPT low risk, carrier negative in first . ntd screen declined. (5) Family history of spina bifida: COMMENT: Pt's sister (also has scoliosis), recommended 4 mg daily folic acid (6) History of eating disorder: COMMENT: Doing well with eating during , please be mindful of weight checks (7) Asthma: QUALIFIERS: Asthma severity: unspecified severity Asthma persistence: unspecified Asthma complication type: unspecified Qualified Code(s): J45.909 - Unspecified asthma, uncomplicated COMMENT: Albuterol PRN (8) Migraine with aura: QUALIFIERS: Status migrainosus presence: without status migrainosus Intractability: not intractable Qualified Code(s): G43.109 - Migraine with aura, not intractable, without status migrainosus COMMENT: avoid estrogen Maternal Data Information JANNET Calculator Estimated Delivery Date Method Current WG Current Estimate 01/27/25 LMP (Certain) 40w 3d Final JANNET: 01/28/25 Gestational age: 40 weeks 3 days Vaginal Delivery Maternal Presentation Maternal Presentation: Active Labor Type of Induction: Amniotomy Vaginal Delivery Information Procedure Performed: Spontaneous Vaginal Delivery Surgeon/Practitioner: Lashay Fields Date of Procedure: 01/30/25 Pre-Procedure Diagnosis: 24 y/o @ 40 weeks 3 days, active labor Post-Procedure Diagnosis: 24 y/o @ 40 weeks 3 days, active labor Type of anesthesia: Epidural Special Medications: methergine Estimated Blood Loss: 200cc Findings Description of procedure: Patient began pushing and delivered the head in the RENEE presentation. The head was delivered atraumatically. The anterior and posterior shoulders delivered without complication followed by the rest of the and the was placed on the maternal abdomen. Delayed cord clamping was employed for approximately 60 seconds. Cord was clamped and cut and gentle traction was applied to the cord and the placenta delivered spontaneously immediately following it was noted to be intact with three-vessel cord. The perineum and vagina were inspected and noted to have a 1st degree laceration. This was repaired with a 3-0 vicryl rapide suture. EBL was 100 cc. Patient and infant tolerated delivery well. Procedure findings: viable female infant Brionna Presentation: Vertex Amniotic Membrane Rupture Type: Artificial Amniotic Fluid Description: Clear Placental Delivery Description: Spontaneous Placenta Disposition: [facility] Specimen collected: No Cord Vessel Description: 3 Vessels Cord Entanglement: None Infant A Gender: Female (1 minute): 8 (5 minute): 9 Delayed Cord Clamping: Yes Director Of [employer] Services head gauge unit operator: No Post Vaginal Deli Medications given after delivery: IV Pitocin Laceration: 1st degree Complication Complications: No Multi Select Codes Urinary/Genital Urinary/Genital CPT Codes: 01863 Vaginal Delivery [facility]
--- NOTE | 2025-01-30 11:30 | PCM.DC ---
Discharge Instructions DC O2, CPAP, BIPAP needs Home O2 Discharge instructions: No Dressing / Incision Discharge Activity: Return to Normal Activity, May Not Drive (while taking narcotic pain medications.) and May Shower May resume sexual activity in: 4-6 weeks Dressing / Incision Call your doctor if your incision/area has: Continuous Slow Oozing, Sudden Increased Bleeding, Increased Pain/ Swelling, Increased Redness and Foul Smelling Discharge Follow Up Care Please Follow Up With: Lashay Fields DO When: Call [phone] to make an appointment with your doctor in 6 weeks. If you had elevated blood pressure or 4th degree laceration, you will need to be seen in 2 weeks. Test Results: Test results from this visit will be discussed in further detail at your follow-up appointment, if applicable. Discharge Plan Admission Admit Date/Time: 01/30/25 05:01 Attending Provider: Lashay Fields Primary Care Provider: Jenniffer Perea NP Discharge Orders/Prescriptions Prescriptions: No Action albuterol sulfate 90 mcg/actuation HFA aerosol inhaler 2 puff inhalation Q6H PRN (Reason: shortness of breath or wheezing) DHA 200 mg capsule 1 mg PO QHS magnesium 200 mg tablet 350 mg PO QDAY Patient Comments: pt reports taking CALM Probiotic 3 billion cell capsule 3,000 mmu cells PO QDAY Rx Instructions: administer with a meal nystatin 100,000 unit/gram powder 1 applic topical BID Qty: 30 1RF acetaminophen 500 mg capsule 1,000 mg PO Q6H PRN (Reason: pain) famotidine [Pepcid] 20 mg tablet 10 mg PO DAILY melatonin 3 mg capsule 2 mg PO PRN Referrals / Follow Up: Jenniffer Perea NP, DIRECTOR OF MARKETING-C [Primary Care Provider] -
[2025-01-30] MEDS: Oxytocin 15 Units/NS 250ml 15 UNITS/250 ML IV.SOLN 83 UNITS IV (11:50)
[2025-01-30] MEDS: Senna/Docusate Sodium 1 Tablet PO (20:44)
[2025-01-30] MEDS: Benzocaine/Lanolin/Aloe Vera 85 GM Spray 1 SPRAY TOPICAL ×3 (20:44→22:47)
[2025-01-30] MEDS: SELF ADMINISTRATION OF MEDS 1 EACH NOTE (22:47)
[2025-01-31] VITALS (8 sets, daily range): BP systolic 108–124; BP diastolic 60–70; PULSE 72–82; RESP 16; TEMP 36.1–36.6; O2SAT 95–98
--- NOTE | 2025-01-31 07:48 | PCM.PN.OB ---
Subjective Subjective Patient doing well without complaints. Tolerating PO. Ambulating and voiding without difficulty. feeding well. Denies chest pain, shortness of breath, calf pain/swelling, fevers, chills, lightheadedness. Objective Data Objective Data Vital Signs: Vital Signs Temp Pulse Resp BP Pulse Ox O2 Del Method 97.9 F 74 16 118/60 97 Room Air 01/31/25 03:51 01/31/25 03:51 01/31/25 03:51 01/31/25 03:51 01/31/25 03:51 01/31/25 03:51 Oxygen Delivery Method Room Air Weight: 217 lb 6.012 oz Body Mass Index (BMI) 35.1 Intake & Output: Intake and Output for Last 24 Hours 01/29/25 01/30/25 01/31/25 23:59 23:59 23:59 Intake Total 2753.16 / 2753.16 Output Total 2050 / 2050 Balance 702.16 / 702.16 Lab / Micro Data 01/30/25 05:20 ROS Constitutional Constitutional: Reports systems reviewed and no addt'l complaints, except as documented Cardiovascular Cardiovascular: Reports systems reviewed and no addt'l complaints, except as documented Respiratory/Chest Respiratory/Chest: Reports systems reviewed and no addt'l complaints, except as documented Gastrointestinal Gastrointestinal: Reports systems reviewed and no addt'l complaints, except as documented Physical Exam Const alert, oriented x3 and no apparent distress HEENT Head and Scalp: atraumatic Resp normal respiratory effort GI soft to palpation and non-tender Bimanual Exam - Vag & Uterus: uterus non-tender Uterus Palpation: uterus fundus firm (below Umbilicus) Assessment & Plan (1) Vaginal delivery: COMMENT: KUN MAHARAJ IAL PLAN: Plan s/p PPD # 1 1. routine post delivery care 2. breast feeding- support given 3. rh positive 4. rubella immune
[2025-01-31] MEDS: SELF ADMINISTRATION OF MEDS 1 EACH NOTE (11:33)
[2025-01-31] MEDS: Benzocaine/Lanolin/Aloe Vera 85 GM Spray 1 SPRAY TOPICAL (11:34)
== END 2025-01-31 13:50 | disposition home or self-care (01) | DRG 807 ==
LOC: WPOUT 05:14 → WP 05:14
PROVIDERS: Admitting Provider Obstetrics & Gynecology; PCP Nurse Practitioner Family; Visit Provider Obstetrics & Gynecology
DX: O99.214 Obesity complicating childbirth (principal); Z37.0 Single live birth; O70.0 First degree perineal laceration during delivery; Z3A.40 40 weeks gestation of pregnancy; Z87.59 Personal history of other complications of pregnancy, childbirth and the puerperium
CPT/HCPCS: 59025; 59050; 85025; 86780; 86850; 86900; 86901; 99221; G0378

== ENCOUNTER 2025-03-11 00:01 | Emergency (ER) | payer BC, SELFPAY ==
--- OUTSIDE RECORDS SUMMARY | 2024-09-07 13:41 | XMS RPT_ITS ---
Author Name Auto Generated Organization [facility] Care Team Providers Care Cash Grain Grower Name Role Phone DEVAN VILLARREAL Attending Unavailable GONZALEZ DUNNE Referring Unavailable PROBLEMS No Problem Records Found PROCEDURES No Procedure Records Found RESULTS No Result Records Found ALLERGIES No Allergies Records Found ENCOUNTERS ADMIT/DISCHARGE ACCOUNT NUMBER ADMITTING ENCOUNTER CLASS LOCATION SOURCE 09/07/2024/09/07/2024 [id number] Ambulatory Osuna lding:[facility] PAYERS ENCOUNTER GUARANTOR PAYER SUBSCRIBER SOURCE 09/07/2024 SANG MICHAELMANDOB: [place], [place] [address]Eae: ~[phone]) Primary Insurance:MARGUERITE engel Number: [id number] tive Date: ALYSONMIGUEL CASTILLOOB: [id number] [place] [address] [facility]
[2025-03-11 00:01] VITALS: BP 108/49; PULSE 68; RESP 18; TEMP 36.5; O2SAT 99; BMI 32.7
--- NOTE | 2025-03-11 00:23 | EDS_ITS ---
HPI HPI - Female History of Present Illness Chief Complaint: Vag Bleeding Narrative Narrative: Patient is a 25-year-old female currently 5 weeks who presents to the emergency department chief complaint of vaginal bleeding. Patient states that on she developed spotting and then this evening around 8:00 within 2 hours she soaked through her entire pad she states that this was a size 2 as opposed to size 6. She states that she had retained products with her previous and she called her on-call SUPERINTENDENT TERMINAL and they are concerned that she may have retained products again therefore they sent her here to the emergency department for ultrasound for further evaluation. Patient otherwise has no complaints. [facility] Medical History Asthma Headache Home Medications Medication Instructions Recorded Last Taken Type albuterol sulfate 90 mcg/actuation 2 puff inhalation Q 6H PRN 08/08/23 08/14/24 History aerosol inhaler shortness of breath or wheez ing magnesium 200 mg tablet 350 mg PO QDAY 06/26/2401/11 20:00 History Allergy/AdvReac Type Severity Reaction Status Date / Time No Known Allergies Allergy Verified 03/11/25 00:01 Family History Grandmother Breast cancer maternal Grandfather Cancer Skin Aunt Cancer Skin Grandmother Heart disease Myocardial infarction Grandfather Kidney failure Father Pre-diabetes Surgical History S/P nasal surgery S/P wisdom tooth extraction S/P D&C (status post dilation and curettage) Social History adopted: No household members: spouse and children number of children: 1 current occupation: [employer] current occupational exposures/hazards: No pets and animals: No history of recent travel: No sexually active: Yes Smoking Status: Never smoker alcohol intake: current alcohol intake frequency: holidays/special occasions only details: Not while substance use type: does not use well-balanced diet: daily or most days caffeine: Yes Type: coffee eating out: rarely or never during the past year weight has: remained stable what type of physical activity do you participate in: walking and weight training frequency: 5-6 times per week duration: 30-45 minutes/day feliciano/holiness: Evangelical seatbelt use: always do you feel safe at home: Yes additional social history: : 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 @ [employer] ROS ED ROS Narrative Constitutional: Denies fevers, chills, headaches Eyes: Denies double vision Cardiovascular: Denies chest pain Respiratory: Denies shortness of breath Abdomen: Complains of lower cramping in her abdomen but denies nausea vomit diarrhea : Complains of vaginal spotting and bleeding as noted above denies painful urination Neurological: Denies numbness, weakness, tingling Musculoskeletal: Denies back pain Skin: Denies any rashes or lesions EXAM Physical Exam Narrative Exam Narrative: General: Patient is lying in bed resting comfortably did not appear to be in acute distress Head: Atraumatic, normocephalic Eyes: PERRL bilaterally, EOMI bilaterally, no conjunctival injection noted Neck: Soft, supple, trachea midline Cardiovascular: Regular rate and rhythm Respiratory: Clear to auscultation bilaterally Abdomen: Soft, nondistended, no tenderness to palpation Extremities: +5/5 strength noted in the bilateral upper and lower extremities Neurological: Patient following commands issues at [facility] year is 2024 Skin: Warm, dry, tact no rashes or lesions noted Const Vital Signs: 03/11/25 00:01 03/11/25 02:01 03/11/25 04:00 Temperature 97.7 F L Temperature Source Oral Pulse Rate 68 68 Respiratory Rate 18 16 Blood Pressure 108/49 L 110/70 Blood Pressure Mean 68 83 Pulse Ox 99 98 Oxygen Delivery Method Room Air Room Air Room Air MDM MDM MDM Narrative Medical decision making narrative: Patient is a 25-year-old female who presented to the emergency department the chief complaint of vaginal spotting concern for retained products. On the differential diagnose includes but limited to UTI, retained products of conception. Once workup is obtained reviewed she will be reevaluated. Ultrasound will be called in as there is no one here currently for ultrasound at 12:26 AM. Patient's CBC reviewed and showed no evidence of leukocytosis white blood count 7.8, he was 14.1, plate count of 298. Patient sodium is 140, potassium normal at 4, creatinine 0.88. Patient's AST and ALT were 21 and 21 respectively, quant levels less than 1. Patient's urinalysis showed 250 occult blood negative leukocyte esterase negative nitrites 0-5 white cells with 1+ bacteria. [facility] transvaginal ultrasound showed a hypoechoic structure noted in the fundus of the endometrial cavity measuring 1.2 x 0.4 cm with increased vascularity suspicious for retained products of conception. Fluid is noted in the cervix. Discussed case with on-call SUPERINTENDENT TERMINAL Dr. Eli who states that the patient can go home and follow-up in the office this morning. I discussed this plan with the patient and she is agreeable with this plan she has not saturated through her pad here in the emergency department. All question concerns answered she was discharged home in stable condition. Lab Data Labs: Laboratory Results - last 24 hr 03/11/25 03/11/25 00:26 01:22 WBC 7.8 RBC 4.77 Hgb 14.1 Hct 44.0 MCV 92.2 MCH 29.6 MCHC 32.0 RDW Std Deviation 41.7 RDW Coeff of Arlette 12.2 Plt Count 298 MPV 9.0 Immature Gran % (Auto) 0.100 Neut % (Auto) 53.1 Lymph % (Auto) 37.9 [place] % (Auto) 7.6 Eos % (Auto) 1.0 Baso % (Auto) 0.3 Absolute Neuts (auto) 4.1 Absolute Lymphs (auto) 2.94 Nucleated RBC % 0 Sodium 140 Potassium 4.0 Chloride 105 Carbon Dioxide 22.6 Anion Gap 12 BUN 21 H Creatinine 0.88 Estim Creat Clear Calc 112.57 Est GFR (MDRD) Non-Af 94 BUN/Creatinine Ratio 23.3 H Glucose 92 Calcium 9.4 Total Bilirubin < 0.15 AST 20 ALT 21 Alkaline Phosphatase 109 H Total Protein 6.6 Albumin 4.2 Globulin 2.4 Albumin/Globulin Ratio 1.7 HCG, Quant < 1 Serum , Qual Cancelled Urine Color Yellow Urine Clarity Clear Urine pH 7.0 Ur Specific [place] 1.010 Urine Protein 15 H Urine Glucose (UA) Normal Urine Ketones Negative Urine Occult Blood 250 H Urine Nitrite Negative Urine Bilirubin Negative Urine Urobilinogen Normal Ur Leukocyte Esterase Negative Urine RBC 50-100 SEEN Urine WBC 0-5 SEEN Ur Squamous Epith Cells 0-5 SEEN Urine Bacteria 1+ Urine Mucus 0 SEEN Radiography Diagnostic Testing: Clinical Impression(s) from Imaging Studies Transvaginal US 03/11/25 00:52 IMPRESSION: Hyperechoic structure is noted in the fundus of the endometrial cavity measuring 1.2 x 0.4 cm with increased vascularity suspicious for retained products of conception. Fluid is noted in the cervix. Reading Location: [place] [id number] Discharge Plan Triage Chief Complaint: Vag Bleeding ED Provider: Vitor Ruff Dx/Rx/DC Orders Clinical Impression: Vaginal bleeding, Retained products of conception Prescriptions: No Action albuterol sulfate 90 mcg/actuation HFA aerosol inhaler 2 puff inhalation Q6H PRN (Reason: shortness of breath or wheezing) magnesium 200 mg tablet 350 mg PO QDAY Patient Comments: pt reports taking CALM Primary Care Provider: Jenniffer Perea NP Referrals: Jenniffer Perea NP, TIRE MAINTENANCE TECHNICIAN-C [Primary Care Provider, Family Practice] Activity Restrictions/Additional Instructions: When you are OB/GYNs office open this morning you need to call them and get an appointment with them today to be seen. Take the ultrasound report with you for them to review. Return if worsening symptoms or any other concerns. Print Language: Khmer Disposition Disposition: Home, Self Care
[2025-03-11 00:37] LABS: Hematocrit 44.0 % (37-47); Hemoglobin 14.1 g/dL (12.0-15.0); Immature Granulocytes Count 0.010 X10^3/uL (0.0-0.0); Mean Corp Hgb Conc 32.0 g/dL (32-36); Mean Corpuscular Volume 92.2 fL (81-99); Mean Platelet Vol. 9.0 fl (6.2-12.0); NRBC Flagged by Analyzer 0 % (0-5); Platelet Count 298 K/mm3 (150-450); RBC Distribution Width CV 12.2 % (11.6-14.6); RBC Distribution Width SD 41.7 fl (35.1-43.9); Red Blood Count 4.77 M/mm3 (4.2-5.4); White Blood Count 7.8 K/mm3 (4.4-11.0)
--- NOTE | 2025-03-11 00:52 | US_ITS ---
PROCEDURE: TRANSVAGINAL NON- 03/11/2025 REASON FOR EXAM: CONCERN FOR RETAINED PRODUCTS TECHNIQUE: Procedure Code: USTVAG Modality: US Procedure: TRANSVAGINAL NON- COMPARISON: None. FINDINGS: The uterus is retroflexed measuring 9.9 x 8.2 x 5.3 cm. The endometrium is normal in thickness measuring 6 mm. Hyperechoic structure is noted in the fundus of the endometrial cavity measuring 1.2 x 0.4 cm with increased vascularity suspicious for retained products of conception. Mild amount of fluid is noted in the cervix. No free fluid in the pelvic cul-de-sac. Normal right ovary measuring 3.1 x 2.2 x 2 cm. The left ovary measures 3.7 x2.4 x 1.7 cm. Normal left ovarian flow. US/Transvaginal Non- IMPRESSION: Hyperechoic structure is noted in the fundus of the endometrial cavity measurin g 1.2 x 0.4 cm with increased vascularity suspicious for retained products of conception. Fluid is noted in the cervix. Reading [facility]
[2025-03-11 01:01] LABS: AST(SGOT) 20 U/L (<=31); Alanine Aminotransfer ALT/SGPT 21 U/L (<=34); Albumin, Serum 4.2 g/dL (3.5-5.0); Alkaline Phosphatase 109 U/L (35-104); Anion Gap 12 (5-15); BUN 21 mg/dL (4-19); BUN/Creat Ratio 23.3 RATIO (10-20); Calcium,Total 9.4 mg/dL (7.6-11.0); Carbon Dioxide 22.6 mmol/L (21.0-32.0); Chloride 105 mmol/L (98-108); Estimated Creatinine Clearance 112.57 ml/min (50-250); Globulin 2.4 g/dL (2.2-4.2); Glucose 92 mg/dL (70-99); Potassium 4.0 mmol/L (3.3-5.1)
[2025-03-11 01:06] LABS: hCG Titer Quant., Serum < 1 mIU/mL (<9 non-preg)
[2025-03-11] MEDS: 0.9% Normal Saline (1000mL) 1,000 ML 999 ML IV (01:19)
[2025-03-11 01:27] LABS: Mucous, Urine 0 SEEN /hpf (<or=2+)
[2025-03-11 01:32] LABS: Color, Urine Yellow (Yellow); Glucose, Dipstick Normal (Normal); Ketone-Dipstick Negative (Negative); Leukocyte Esterase-Dipstick Negative /ul (Negative); Nitrite-Dipstick Negative (Negative); Occult Blood-Urine 250 /ul (Negative); Protein-Dipstick 15 mg/dl (Negative); Specific Gravity, Urine 1.010 (1.002-1.030); Urine Bilirubin Dipstick Negative (Negative)
[2025-03-11 02:01] VITALS: BP 110/70; PULSE 68
[2025-03-11 03:03] LABS: Red Blood Cells-Urine 50-100 SEEN /hpf (0-5); Squamous Epithelial Cells - UA 0-5 SEEN /hpf (5-10)
[2025-03-11 04:00] VITALS: RESP 16; O2SAT 98
[2025-03-11 05:41] VITALS: BP 108/70; PULSE 69; RESP 16; TEMP 36.6; O2SAT 99
== END 2025-03-11 05:42 | disposition home or self-care (01) ==
PROVIDERS: Emergency Provider Emergency Medicine; PCP Nurse Practitioner Family; Visit Provider Emergency Medicine
DX: O72.2 Delayed and secondary postpartum hemorrhage (principal)
CPT/HCPCS: 76830; 80053; 81001; 84702; 85025; 96360; 99283; A4216

== ENCOUNTER 2025-03-11 10:05 | Day surgery (SDC) | payer BC, SELFPAY ==
--- OUTSIDE RECORDS SUMMARY | 2024-09-07 13:41 | XMS RPT_ITS ---
Author Name Auto Generated Organization [facility] Care Team Providers Care Top Coater Name Role Phone DEVAN VILLARREAL Attending Unavailable GONZALEZ DUNNE Referring Unavailable PROBLEMS No Problem Records Found PROCEDURES No Procedure Records Found RESULTS No Result Records Found ALLERGIES No Allergies Records Found ENCOUNTERS ADMIT/DISCHARGE ACCOUNT NUMBER ADMITTING ENCOUNTER CLASS LOCATION SOURCE 09/07/2024/09/07/2024 [id number] Ambulatory Osuna lding:[facility] PAYERS ENCOUNTER GUARANTOR PAYER SUBSCRIBER SOURCE 09/07/2024 SANG MICHAELMANDOB: [place], [place] [address]Ihl: ~[phone]) Primary Insurance:MARGUERITE engel Number: [id number] tive Date: ALYSONMIGUEL CASTILLOOB: [id number] [place] [address] [facility]
[2025-03-11] VITALS (8 sets, daily range): BP systolic 101–121; BP diastolic 64–84; PULSE 71–97; RESP 12–20; TEMP 36.2–36.8; O2SAT 95–100; BMI 32.3
[2025-03-11] MEDS: Lactated Ringers 1,000 ML 15 ML IV (11:02)
--- NOTE | 2025-03-11 11:21 | PRE.ANES_ITS ---
ASA Classification* ASA Classification ASA Classification: 2 Assessment & Plan Anesthesia* Anesthesia Assessment Anesthesia Assessment: Discussed sedation and/or anesthesia options, risks, benefits, and alternatives with patient/parents/legal guardian/POA. Questions invited. The patient/parents/legal guardian/POA seems to understand and agrees to proceed with anesthesia plan. Reviewed the physical assessment, medical history, allergy history and patient home medications list prior to surgery/procedure/anesthetic and documented any changes. Performed airway and anesthesia risk assessments. Procedural Plan Add'l anesthesia plan details: Retained products of conception Anesthesia Type Anesthesia Type: General History Source History Obtained from:: Patient and Chart Anesthesia Focused Assessment* Temperature: 98.3 F Pulse Rate: 76 Blood Pressure: 101/64 Respiratory Rate: 16 Pulse Ox: 98 Oxygen Delivery Method: Room Air Airway Assessment Mouth opens: >3 cm Mallampati Score: II Labs Anesthesia Preop lab: CBC WBC, (4.4-11.0) 7.8 K/mm3 Today, 00:26 RBC, (4.2-5.4) 4.77 M/mm3 Today, 00:26 Hgb, (12.0-15.0) 14.1 g/dL Today, 00:26 Hct, (37-47) 44.0 % Today, 00:26 Plt Count, (150-450) 298 K/mm3 Today, 00:26 CHEMISTRY Potassium, (3.3-5.1) 4.0 mmol/L Today, 00:26 Sodium, (133-145) 140 mmol/L Today, 00:26 BUN, (4-19) 21 mg/dL H Today, 00:26 Creatinine, (0.70-1.20) 0.88 mg/dL Today, 00:26 Glucose, (70-99) 92 mg/dL Today, 00:26 COAG HCG, Quant, (<9 non-preg) < 1 mIU/mL Today, 00:26 Tst Clinic Positive 05/21/24, 11:48 Pre-Assessment Diagnosis/Proposed Procedure Planned Operative Procedure(s): D&C Anesthesia History Anesthesia History - net mender: Anesthesia History - net mender Hx Hospitalization Any Problems With Anesthesia Cholinesterase deficiency You/Your Family Experience fever (hyperthermia) with Relationship Recent Exposure to Contagious No 03/11/25 11:03 Disease Does patient have nerve stimulator Patient instructed to have device shut off --Does patient have Pacemaker No 03/11/25 11:03 or ICD? When Was Last Pacemaker Check QUESTION #4 FULL TEXT: You/Your Family Experience fever (hyperthermia) with Anesthesia Last Oral Intake Last Oral intake: Last Oral Intake NPO since 07:30 03/11/25 11:03 Meds taken in AM with sips of water? Meds patient instructed to take am of surgery PONV PONV - net mender: PONV - net mender Female HX of Motion Sickness HX of N/V After Surgery Non-Smoker Duration of Surgery greater than 60 minutes Number of Risk Factors PONV Score Height & Weight Height & Weight: Anesthesia: Height & Weight Height 5 ft 6 in 03/11/25 11:03 Weight: 90.9 kg 03/11/25 11:03 Body Mass Index (BMI) 32.3 03/11/25 11:03 Respiratory Assessment Respiratory Assessment - net mender: Respiratory Tract Infection Hx - net mender Hx Respiratory Tract Infection STOP Sleep Apnea STOP Sleep Apnea - net mender: STOP Sleep Apnea - net mender Hx Hypertension Hx Sleep Apnea CPAP BIPAP Do you snore loudly (louder than talking or can be heard Do you often feel tired/ fatigued/ sleepy during daytime? Has anyone observed you stop breathing during sleep? STOP Results QUESTION #5 FULL TEXT : Do you snore loudly (louder than talking or can be heard through closed doors)? 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 Specify any problems Hx of Preganancy in last 3 Months Nurse Filling Out Transfusion & Questions: Date: Time: Patient unable to answer at this time (ie. confused, unrespo /Reproduction History /Reproductive History - net mender: /Reproductive Hx- net mender Hx Now Gestational Age (in weeks): EDC: Hx Hx Para Hx Section SAB Yes 03/11/25 00:01 Active Medications Active Medications: Current Medications Generic Name Dose Route Start Last Admin Trade Name Alfa PRN Reason Stop Dose Admin Lactated Ringer's 1,000 mls @ 15 mls/hr 03/11/25 10:30 03/11/25 11:02 IV 15 mls/hr .Q48H AME Administration PFSH Medical History Asthma Headache Home Medications ?Medication ?Instructions ?Recorded ?Last Taken ?Type albuterol sulfate 90 mcg/actuation 2 puff inhalation Q 6H PRN 08/08/23 08/14/24 History aerosol inhaler shortness of breath or wheez ing magnesium 200 mg tablet 350 mg PO QDAY 06/26/2401/11 20:00 History Allergy/AdvReac Type Severity Reaction Status Date / Time No Known Allergies Allergy Verified 03/11/25 08:40 Family History Grandmother Breast cancer maternal Grandfather Cancer Skin Aunt Cancer Skin Grandmother Heart disease Myocardial infarction Grandfather Kidney failure Father Pre-diabetes Surgical History S/P nasal surgery S/P wisdom tooth extraction S/P D&C (status post dilation and curettage) Social History adopted: No household members: spouse and children number of children: 1 current occupation: [employer] current occupational exposures/hazards: No pets and animals: No history of recent travel: No sexually active: Yes Smoking Status: Never smoker alcohol intake: current alcohol intake frequency: holidays/special occasions only details: Not while substance use type: does not use well-balanced diet: daily or most days caffeine: Yes Type: coffee eating out: rarely or never during the past year weight has: remained stable what type of physical activity do you participate in: walking and weight training frequency: 5-6 times per week duration: 30-45 minutes/day feliciano/anabaptist: Methodist seatbelt use: always do you feel safe at home: Yes additional social history: : 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 Physical Exam Const alert, oriented x3 and average body habitus Resp normal respiratory effort and normal air movement Cardio regular rate and regular rhythm Neuro oriented x3 and moves all extremities
--- NOTE | 2025-03-11 12:15 | PLAC_PTH ---
PATIENT: SANG SHANE [place] [facility] [place][id number] AGE/SX: 25/F ROOM: RE03/11/[address]: Dr. Sophia Ellison MD : 2000 BED: DIS: 03/11/2025 SPEC #: [id number] RECD: 03/11/25 14:19 STATUS: MATTHEW REQ #: [id number] RENUKA: 03/11/25 12:[address]: Sophia Ellison DEPT: SURGICAL PATHOLOGY RECD BY: Sharif Whitley ENTERED: 03/11/25 14:54 SP TYPE: PLACENTA OTHR DR: Jenniffer Perea, JORGE-Sudeep Tissues: A - Placenta, NOS Procedures: Surgery Specimen Level IV HEADER OPERATION: Suction D&C, right labiaplasty PRE-OP DIAGNOSIS: Retained products of conception, vaginal bleeding TISSUE SUBMITTED: A- Retained placenta MICROSCOPIC DIAGNOSIS A. Uterus, retained placenta, suction curettage: * Proliferative endometrium, myometrium, and endocervical mucosa. * Focal necrotic placental tissue with dystrophic calcification. MICROSCOPIC DESCRIPTION Slides are reviewed. GROSS DESCRIPTION A. Received in formalin labeled with the patient's name and date of . Designated as retained placenta is a 2.9 x 2.3 x 0.5 cm aggregate of almaraz-pink to red tissue fragments and mucoid material. parts are not grossly identified. Entirely submitted in 2 cassettes. DC 03/11/2025 CPT:09500
--- NOTE | 2025-03-11 12:18 | PCM.HP.BLA ---
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 Required: No Is patient in pain?: No Allergies No Known Allergies Allergy (Verified 03/11/25 08:40) Medications ?Medication ?Instructions ?Recorded ?Confirmed ?Type albuterol sulfate 90 mcg/actuation 2 puff inhalation Q6H PRN 08/08/23 03/11/25 History aerosol inhaler shortness of breath or wheezing magnesium 200 mg tablet 350 mg PO QDAY 06/26/24 03/11/25 History Post menopausal: No Patient : No PFSH Medical History Asthma Headache Surgical History S/P nasal surgery S/P wisdom tooth extraction S/P D&C (status post dilation and curettage) Family History Grandmother Breast cancer maternal Grandfather Cancer Skin Aunt Cancer Skin Grandmother Heart disease Myocardial infarction Grandfather Kidney failure Father Pre-diabetes Social History adopted: No household members: spouse and children number of children: 1 current occupation: [employer] current occupational exposures/hazards: No pets and animals: No history of recent travel: No sexually active: Yes Smoking Status: Never smoker alcohol intake: current alcohol intake frequency: holidays/special occasions only details: Not while substance use type: does not use well-balanced diet: daily or most days caffeine: Yes Type: coffee eating out: rarely or never during the past year weight has: remained stable what type of physical activity do you participate in: walking and weight training frequency: 5-6 times per week duration: 30-45 minutes/day feliciano/jehovah's witness: Jehovah'S Witness seatbelt use: always do you feel safe at home: Yes additional social history: : 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 she had intemrittently bledpostpartum and she dleivered 1 month ago, had reatied POC 8 weeks with her last deliveyr requiring a d and c and then presented with heavy bleeding last night, US showing hypervascular area at the fundus but a thin lining in the rest of the uterus. History 2 Elective abortions Hx Para 2 Spontaneous abortions Hx # Term Pregnancies Ectopic pregnancies Hx # Pregnancies Multiple births # of living children 2 Past Pregnancies Del. Date Name GA/Weeks Outcome Route Bth Weight Gen Labor Lgth Anesthesia Del Locatn Provider FOB 12/09/22 Ines 41 live - full term 7lbs 6oz Female 12 hours epidural Ina Vincent Artemio Armando 01/30/25 Brionna 40 live - full term ? Female ? epidural [facility] Lashay GarciaMartel Delivery Date: 12/09/22 Last Updated by: Rachel Peña RN Retained placenta - bleed x8wk pp, D&C 8wk pp Delivery Date: 01/30/25 Last Updated by: Kelly Casey see problem list for complications ROS Const Constitutional: Reports as per HPI; Denies fever(s) ENT ENT: Reports system reviewed and no additional complaints, except as documented Cardio Card: Reports system reviewed and no additional complaints, except as documented Resp Resp: Reports system reviewed and no additional complaints, except as documented GI GI: Reports as per HPI : Reports as per HPI Musc Musc: Reports system reviewed and no additional complaints, except as documented Skin Skin/Breast: Reports system reviewed and no additional complaints, except as documented Neuro Neuro: Reports system reviewed and no additional complaints, except as documented Endo Endo: Reports system reviewed and no additional complaints, except as documented Exam Const General: healthy appearing, comfortable and no acute distress HENMT Head: normal to inspection and normocephalic Neck Neck: no lymphadenopathy noted Thyroid: thyroid normal Chest Chest palpation & inspection: normal inspection of the chest Resp Effort & Inspection: normal respiratory effort Cardio Rate: regular rate Rhythm: regular rhythm GI Inspection: normal to inspection Palpation: soft and nontender External Female Exam: normal external appearance Speculum Exam - Vagina: normal appearance of the vagina and vaginal bleeding Bimanual Exam- Vagina & Uterus: uterine shape normal and non-tender OB/External & Speculum: vaginal bleeding Speculum Exam: vaginal bleeding Skin General: no rashes or lesions noted Neuro General: no focal motor deficits Extrem General: normal to inspection and no pedal edema Psych Appearance: grossly normal Coding Level of Care Code Off vis,est,level 4 Diagnoses Retained products of conception Vaginal bleeding N93.9 Assessment and Plan Assessment and Plan (1) Retained products of conception: Status: Acute (2) Vaginal bleeding: Status: Acute Plan After discussing the patient's diagnosis and treatment plan options, patient wishes to proceed with surgical management. I have discussed with the patient the risks, benefits, and alternatives of the procedure which include but are not limited to risks of anesthesia, bleeding, infection, possible damage to bowel, bladder, or surrounding vasculature which could lead to additional surgery to evaluate any complications. Patient agrees to procedure and wishes to proceed. ACOG/uptodate references given for additional information regarding procedure. UPDATE- I have seen the patient and performed any clinically relevant updates to the history and physical exam. Sophia Ellison MD
[2025-03-11] MEDS: Lactated Ringers 500 ML IV (13:08)
[2025-03-11] MEDS: Midazolam 2 MG/2 ML Syringe IV (13:20)
[2025-03-11] MEDS: Lidocaine 1% (20 ml mdv) 20 ML Vial (13:40)
[2025-03-11] MEDS: Ketorolac 30 MG/ML Syringe IV (13:54)
--- NOTE | 2025-03-11 13:54 | PCM.OPRPT ---
Procedures Urinary/Genital 52xxx-59xxx: [id number] Trmt of incomplete Ab, any TM Operative Report (Standard) Operative Information Date of Procedure: 03/11/25 Pre-Operative Diagnosis: see problem list comments Post-Operative Diagnosis: same Surgery/Procedure Performed: suction dilation and curettage right labioplasty seam hammerer: No Type of Anesthesia: IV Sedation and Local RN Documented Start/Stop Times: Operation Date: 03/11/25 12:15 Case Time Into Pre-Op 03/11/25 10:17 Out of Pre-Op 03/11/25 13:04 Anesthesia Start 03/11/25 13:08 Into Room 03/11/25 13:08 Procedure Start 03/11/25 13:34 Procedure End 03/11/25 13:55 Anesthesia End 03/11/25 14:03 Out of Room 03/11/25 14:03 Into Recovery 03/11/25 14:08 Out of Recovery 03/11/25 14:31 Into Phase II Recovery 03/11/25 14:32 Out of Phase II 03/11/25 15:23 Procedure Start Time: 13:34 Procedure Stop Time: 13:55 Select all DRAINS/GRAFTS/IMPLANTS that apply: None Estimated Blood Loss: 100 Specimen collected: Yes Description of specimen(s) removed: retained POC Description of surgery: Patient was taken to the operating room and placed under MAC local anesthesia. She was prepped and draped in the normal sterile fashion the dorsal lithotomy position. Bladder was drained of clear urine and anterior lip of the cervix was grasped and the uterus sounded to 9cm. Cervix was progressively dilated to allow passage of a 9mm suction curette. Progressive passes were made removing the retained products of conception without complication. Sharp curettage confirmed complete removal of the retained products. All instruments were removed from the vagina and excellent hemostasis was noted. A hole was then noted in the right labia and the decision was made to correct this due to the risk for dyspareunia. An incision was made around the area and it was stitched to close anteriorly and posteriorly with 3-0 Vicryl Rapide without complication. The patient was taken to recovery in stable condition. Surgical Findings: Right hole in the labia and retained placenta Complications Complications: No
--- NOTE | 2025-03-11 13:56 | DCINST_ITS ---
Discharge Instructions DC O2, CPAP, BIPAP needs Home O2 Discharge instructions: No Dressing / Incision Discharge Activity: Return to Normal Activity, May Not Drive (while taking narcotic pain medications.) and May Shower May resume sexual activity in: 4-6 weeks Weight Bearing Status: Weight bearing as tolerated Lifting Restrictions: none Dressing / Incision Call your doctor if your incision/area has: Continuous Slow Oozing, Sudden Increased Bleeding, Increased Pain/ Swelling, Increased Redness and Foul Smelling Discharge Call your doctor if you observe: Fever of 101 or Higher, Using more than 1 pad per hour, Shortness of breath and Uncontrolled pain Follow Up Care Please Follow Up With: Sophia Ellison MD When: Call [phone] to make an appointment with your doctor in 6 weeks. If you had elevated blood pressure or 4th degree laceration, you will need to be seen in 2 weeks. Test Results: Test results from this visit will be discussed in further detail at your follow- up appointment, if applicable. Discharge Plan Admission Attending Provider: Sophia Ellison Primary Care Provider: Jenniffer Perea NP Instructions Print Language: Setswana Discharge Orders/Prescriptions Prescriptions: No Action albuterol sulfate 90 mcg/actuation HFA aerosol inhaler 2 puff inhalation Q6H PRN (Reason: shortness of breath or wheezing) magnesium 200 mg tablet 350 mg PO QDAY Patient Comments: pt reports taking CALM Referrals / Follow Up: Jenniffer Perea NP, [facility] [Primary Care Provider, Family Practice] Disposition Disposition (needs filled in before D/C Order can be placed): Home, Self Care
--- NOTE | 2025-03-11 14:10 | PCM.POST.ANE ---
Anesthesia: Postop Eval I Current Vital Signs Temperature: 97.1 F Pulse Rate: 97 Blood Pressure: 115/72 Respiratory Rate: 20 Pulse Ox: 95 Assessment Airway patent: Yes Spontaneous unlabored respirations: Yes nausea: No Vomiting: No Anesthesia Complication: No Fluid Hydration Crystalloid volume administer (ml): 500 Total IV fluid infused: 500 Progress Note Anesthesia document: Postop Eval 1 completed: Yes
--- NOTE | 2025-03-11 14:30 | POSTOPAN2_ITS ---
Anesthesia Postop Eval I Sum Postop Eval Completion status Anesthesia document: Postop Eval 1 completed: Yes Anesthesia Postop Eval I Summary Anesthesia Postop Eval I Summary: Anesthesia Postop Eval I: Assessment Summary Airway patent Yes 03/11/25 14:10 [email or web address] Spontaneous unlabored Yes 03/11/25 14:10 SPINNER [email or web address] respirations Mental status nausea No 03/11/25 14:10 SPINNER [email or web address] Vomiting No 03/11/25 14:10 SPINNER [email or web address] Anesthesia Postop Eval I: Fluid Summary Crystalloid volume administer 500 03/11/25 14:10 SPINNER [email or web address] (ml) Colloids volume administered ( ml) Blood Product volume administered (ml) Total IV fluid infused 500 03/11/25 14:10 SPINNER [email or web address] Anesthesia Postop Eval I: Summary Notes Anesthesia Complication No 03/11/25 14:10 SPINNER [email or web address] Anesthesia Complication Comment: Post-operative progress note Anesthesia: Postop Eval II Evaluation Mental status: Awake Pain Level: 0 nausea: No Vomiting: No Complications Anesthesia Complication: No
--- NOTE | 2025-03-11 14:30 | PCM.POSTANE2 ---
Anesthesia Postop Eval I Sum Postop Eval Completion status Anesthesia document: Postop Eval 1 completed: Yes Anesthesia Postop Eval I Summary Anesthesia Postop Eval I Summary: Anesthesia Postop Eval I: Assessment Summary Airway patent Yes 03/11/25 14:10 PARA [email or web address] Spontaneous unlabored Yes 03/11/25 14:10 PARA [email or web address].CSIR respirations Mental status nausea No 03/11/25 14:10 PARA [email or web address].CSIR Vomiting No 03/11/25 14:10 PARA [email or web address] Anesthesia Postop Eval I: Fluid Summary Crystalloid volume administer 500 03/11/25 14:10 PARA [email or web address] (ml) Colloids volume administered ( ml) Blood Product volume administered (ml) Total IV fluid infused 500 03/11/25 14:10 PARA [email or web address] Anesthesia Postop Eval I: Summary Notes Anesthesia Complication No 03/11/25 14:10 PARA [email or web address] Anesthesia Complication Comment: Post-operative progress note Anesthesia: Postop Eval II Evaluation Mental status: Awake Pain Level: 0 nausea: No Vomiting: No Complications Anesthesia Complication: No
== END 2025-03-11 15:23 | disposition home or self-care (01) ==
LOC: SDC 10:06 → AC 10:07
PROVIDERS: PCP Nurse Practitioner Family; Referring Provider Obstetrics & Gynecology; Visit Provider Obstetrics & Gynecology
PROC: (CPT 59160; principal; 2025-03-11 12:00)
DX: O72.2 Delayed and secondary postpartum hemorrhage (principal); O99.53 Diseases of the respiratory system complicating the puerperium; J45.909 Unspecified asthma, uncomplicated; N90.89 Other specified noninflammatory disorders of vulva and perineum; O99.893 Other specified diseases and conditions complicating puerperium
CPT/HCPCS: 59160; 56620; 00940; 88305; 88307; J2405

== ENCOUNTER → 2025-03-20 | Outpatient (CLI) | payer BC, SELFPAY | END | disposition home or self-care (01) | LOC: LABSPEC 15:33 | PROVIDERS: PCP Nurse Practitioner Family; Referring Provider Obstetrics & Gynecology; Visit Provider Obstetrics & Gynecology | DX: N89.8 Other specified noninflammatory disorders of vagina (principal) | CPT/HCPCS: 87070; 87205 ==